=== PATIENT | male | born 1945 | race Caucasian/White ===

== ENCOUNTER → 2021-10-06 | Outpatient (CLI) | payer MEDICARE ==
[~2021-10-06] VITALS: Ht 68 cm; Wt 195.0 kg
[~2021-10-06] MED LIST: ACETAMINOPHEN 500 MG TAB (TYLENOL) PO PRN; ALPR.25T; ASP81CT; ASPI325T32; BAMLANIVIMAB 700 MG/ETESEVIMAB 1,400 MG IN NS IV ONE; COUMADIN; CPR500T PO; ENXP100I SC; EPINEPHrine INJECTION 1 MG/ML AMP IM PRN; LORA1TAB PO; MEMA10TA PO; MEMANTINE PO; METAPROLOL; METO-272 PO; MTP25TSR; MTP25TSR PO; MTP50T PO; NAMENDA XR 21MG PO; ONDANSETRON 4 MG/2 ML (SDV) Z0FRAN IV PRN; OXYC1TAB87 PO; PRAV40TA PO; SENN1TAB76 PO; SIMV20TA3; SIMVASTATIN; TOPROL; WARF4TAB; WRF2T PO; XANAX PRN; diphenhydrAMINE 50 MG/ML INJ (BENADRYL) IV PRN
[2021-10-06 10:51] VITALS: BP 143/72
[2021-10-06 10:55] VITALS: BP 143/72
[2021-10-06 12:33] VITALS: BP 143/72
== END ==
LOC: INFUSION 10:37
PROVIDERS: ATTEND Family Medicine
DX: U07.1 COVID-19 (principal)

== ENCOUNTER 2021-10-12 10:05 | Inpatient (IN) | payer MEDICARE ==
[~2021-10-12] VITALS: Ht 183 cm; Wt 89.8 kg
[~2021-10-12 10:05] MED LIST changes: -ACETAMINOPHEN 500 MG TAB (TYLENOL) PO PRN; -BAMLANIVIMAB 700 MG/ETESEVIMAB 1,400 MG IN NS IV ONE; -EPINEPHrine INJECTION 1 MG/ML AMP IM PRN; -ONDANSETRON 4 MG/2 ML (SDV) Z0FRAN IV PRN; -diphenhydrAMINE 50 MG/ML INJ (BENADRYL) IV PRN
--- OUTSIDE RECORDS SUMMARY | 2021-10-12 10:14 | XMS REPORT | CCD ---
Author Author Ronnie Lopez D.O. 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 Name Role Phone Roxie Lopez D.O., PP Unavailable CCM Unavailable Summary Purpose Interface Exchange Insurance Providers Payer name Policy type / Coverage type Covered green party ID Effective Begin Date Effective End Date [employer] Medicare [id number] Unknown Family History Family History data not found Social History Social History Element Codes Description Effective Dates Marital status Unknown 12/06/[address]: 0676118 Former smoker 2000 12/06/2011 Allergies, Adverse Reactions, Alerts Substance Reaction Codes Entered Date Inactivated Date Status * NO KNOWN FOOD ALLERGIES Unknown 10/30/2010 No Inactiv e Date Active PENICILLINS Unknown 10/30/2010 No Inactive Date Active * NO KNOWN ENVIRONMENTAL ALLERGIES Unknown 10/30/2010 N o Inactive Date Active Problems Condition Codes Effective Dates Condition Status Alzheimer's dementia ICD-10: G30.9 ICD-9: 331.0 11/27/2017 Active COVID-19 ICD-10: U07.1 ICD-9: 079.89 10/05/2021 Active Dementia in other diseases classified elsewhere withou t behavioral disturbance ICD-10: F02.80 10/05/2021 Active Cough ICD-10: R05.9 ICD-9: 786.2 10/04/2021 Active Exposure to COVID-19 virus ICD-10: Z20.822 ICD-9: V01.79 10/04/2021 Active FLU VACCINE ICD-10: Z23 ICD-9: V04.81 10/02/2016 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 01 ICD-9: V58.61 06/27/2020 Active Parkinson disease ICD-10: G20 ICD-9: 332.0 04/26/2021 Active Dementia ICD-10: F03.90 ICD-9: 294.20 04/26/2021 Active Alzheimer's disease with late onset ICD-10: G30.1 ICD-9: 331.0 01/07/2019 Active Encounter for general adult medical examination withou t abnormal findings ICD- 10: Z00.00 ICD-9: V70.9 10/12/2020 Active Mixed hyperlipidemia ICD-10: E78.2 ICD-9: 272.4 08/23/2014 Active Dementia in other diseases classified elsewhere with b ehavioral disturbance ICD- 10: F02.81 07/13/2020 Active Encounter for therapeutic drug level monitoring ICD-10 : Z51.81 ICD-9: V58.61 11/14/2017 Active Encounter for screening for malignant neoplasm of pros aquino ICD-10: Z12.5 ICD-9: V76.44 08/23/2014 Active Essential (primary) hypertension ICD-10: I10 ICD-9: 401.9 08/23/2014 Active Abnormal weight loss ICD-10: R63.4 ICD-9: 783.21 04/22/2019 Active Encounter for general adult medical examination withou t abnormal findings ICD- 10: Z00.00 ICD-9: V70.0 09/02/2019 Active Hypotension ICD-10: I95.9 ICD-9: 458.9 09/02/2019 Active Generalized anxiety disorder ICD-10: F41.1 ICD-9: 300.00 11/27/2017 Active Unspecified dementia with behavioral disturbance ICD-1 0: F03.91 ICD-9: 294.21 02/09/2019 Active Melena ICD-10: K92.1 ICD-9: 578.1 04/22/2019 Active Spontaneous ecchymoses ICD-10: R23.3 ICD-9: 782.7 05/27/2019 Active Psychophysiologic insomnia ICD-10: F51.04 ICD-9: 780.52 01/07/2019 Active Slow transit constipation ICD-10: K59.01 ICD-9: 564.01 02/09/2019 Active Constipation, unspecified ICD-10: K59.00 ICD-9: 564.00 01/07/2019 Active Nocturia ICD-10: R35.1 ICD-9: 788.43 01/07/2019 Active Atherosclerotic heart disease of [place] coronary arter y without angina pectoris ICD-10: I25.10 ICD-9: 414.00 11/14/2017 Active PNEUMOCOCCAL VACCINE ICD-10: Z23 ICD-9: V03.82 08/14/2017 Active Mild cognitive impairment, so stated ICD-10: G31.84 ICD-9: 780.93 09/01/2014 Active - I - ANXIETY STATE NOS ICD-9: 300.00 09/01/2014 Active MEMORY LOSS ICD-9: 780.93 09/01/2014 Active CAD ICD-9: 414.00 08/23/2014 Active HYPERLIPIDEMIA NEC/NOS ICD-9: 272.4 08/23/2014 Active HYPERTENSION ICD-9: 401.9 08/23/2014 Active Screening PSA (prostate specific antigen) ICD-9: V76.44 2013 Active Testicular pain ICD-9: 608.9 07/02/2013 Active ROUTINE MEDICAL EXAM ICD-9: V70.0 12/06/2011 Active Seborrheic dermatitis ICD-9: 690.10 12/06/2011 Active Anxiety Unknown 10/30/2010 Active Hyperlipidemia Unknown 10/30/2010 Active Hypertension Unknown 10/30/2010 Active Medications Medication Codes Instructions Start Date Stop Date Status Fill Instructions Dexamethasone Intensol 1 mg/mL Drops (concentrate) RxNorm: 3 15374 Take 5 Drop(s) Oral QD 10/05/2021 10/09/2021 Active Zithromax 200 mg/5 mL oral suspension RxNorm: 964548 Ta ke 12.5 Milliliter(s) Oral QD 10/05/2021 10/09/2021 Active albuterol sulfate HFA 90 mcg/actuation aerosol inhaler RxNor m: 0189160 Inhale 2 Puff(s) Inhalation Q4H as needed 10/05/2021 10/05/2021 Inactive albuterol sulfate HFA 90 mcg/actuation aerosol inhaler RxNor m: 2045516 Inhale 2 Puff(s) Inhalation Q4H as needed 10/05/2021 10/05/2021 Inactive memantine 10 mg tablet RxNorm: 687402 TAKE 1 TABLET TWI CE DAILY (REPLACES NAMENDA XR) 10/04/2021 04/01/2022 Active escitalopram 20 mg tablet RxNorm: 741191 TAKE 1 TABLET AT BEDTIME 1 12/05/2020 04/01/2022 Active warfarin 2 mg tablet RxNorm: 394139 TAKE 1 AND 1/2 TABL ETS ON SATURDAY, SATURDAY, SATURDAY, SATURDAY AND TAKE 2 TABLETS ON SATURDAY, SATURDAY AND Saturday08/23/2021 11/20/2021 Active tamsulosin 0.4 mg capsule RxNorm: 504075 TAKE 1 CAPSULE EVERY DAY 0 06/26/2021 09/23/2021 Inactive carbidopa 25 mg-levodopa 100 mg tablet RxNorm: 078776 T PHAM 1 TABLET TWICE DAILY FOR TREMORS 06/26/2021 07/04/2021 Inactive memantine 10 mg tablet RxNorm: 186813 TAKE 1 TABLET TWI CE DAILY (REPLACES NAMENDA XR) 06/26/2021 06/26/2021 Inactive escitalopram 20 mg tablet RxNorm: 468080 TAKE 1 TABLET AT BEDTIME 0 06/26/2021 06/26/2021 Inactive warfarin 2 mg tablet RxNorm: 906297 TAKE 1 AND 1/2 TABL ETS ON SATURDAY, SATURDAY, SATURDAY, SATURDAY AND TAKE 2 TABLETS ON SATURDAY, SATURDAY AND Saturday06/26/2021 06/26/2021 Inactive Sinemet 25 mg-100 mg tablet RxNorm: 249010 Take 1 Table t(s) Oral two times a day for tremors 04/26/2021 04/26/2021 Inactive memantine 10 mg tablet RxNorm: 805979 TAKE 1 TABLET TWI CE DAILY (REPLACES NAMENDA XR) 04/12/2021 04/12/2021 Inactive warfarin 2 mg tablet RxNorm: 962578 2 Tablet(s) Oral Mo through Saturday and 1.5 tablets on Saturday/Saturday01/19/2021 No Stop Date Active tamsulosin 0.4 mg capsule RxNorm: 566920 TAKE 1 CAPSULE EVERY DAY 0 12/19/2020 12/19/2020 Inactive warfarin 2 mg tablet RxNorm: 041291 TAKE 1 AND 1/2 TABL ETS ON SATURDAY, SATURDAY, SATURDAY, SATURDAY AND TAKE 2 TABLETS ON SATURDAY, SATURDAY AND Saturday12/12/2020 01/18/2021 Inactive escitalopram 20 mg tablet RxNorm: 319847 TAKE 1 TABLET AT BEDTIME 0 11/28/2020 11/28/2020 Inactive Namenda 10 mg tablet RxNorm: 220691 TAKE 1 TABLET TWICE DAILY (REPLACES NAMENDA XR) 10/17/2020 10/17/2020 Inactive melatonin 10 mg capsule RxNorm: 331956 1 Capsule(s) Oral QD 020 No Stop Date Active tamsulosin 0.4 mg capsule RxNorm: 612607 TAKE 1 CAPSULE EVERY DAY 1 12/18/2020 Inactive warfarin 2 mg tablet RxNorm: 756278 TAKE 1 AND 1/2 TABL ETS ON SATURDAY, SATURDAY, SATURDAY, SATURDAY AND TAKE 2 TABLETS ON SATURDAY, SATURDAY AND Saturday07/12/2020 12/11/2020 Inactive warfarin 2 mg tablet RxNorm: 808712 TAKE 1 AND 1/2 TABL ETS ON SATURDAY, SATURDAY, SATURDAY, SATURDAY AND TAKE 2 TABLETS ON SATURDAY, SATURDAY AND Saturday06/27/2020 07/11/2020 Inactive Namenda 10 mg tablet RxNorm: 455066 TAKE 1 TABLET TWICE DAILY (REPLACES NAMENDA XR) 04/18/2020 10/16/2020 Inactive tamsulosin 0.4 mg capsule RxNorm: 665431 1 Capsule(s) Oral QD 02/1108/10/2020 Inactive Depakote ER 250 mg tablet,extended release RxNorm: 1998623 1 Tab let(s) Oral QPM 01/21/2020 04/20/2020 Inactive warfarin 2 mg tablet RxNorm: 427575 TAKE 1 AND 1/2 TABL ETS ON SATURDAY, SATURDAY, SATURDAY AND SATURDAY AND TAKE 2 TABLETS ON SATURDAY, SATURDAY AND Saturday12/14/2019 06/26/2020 Inactive escitalopram 20 mg tablet RxNorm: 918621 TAKE 1 TABLET AT BEDTIME 0 11/16/2019 11/27/2020 Inactive Namenda 10 mg tablet RxNorm: 922089 TAKE 1 TABLET TWICE DAILY (REPLACES NAMENDA XR) 10/08/2019 04/17/2020 Inactive tamsulosin 0.4 mg capsule RxNorm: 186374 1 Capsule(s) Oral QD 09/0202/11/2020 Inactive warfarin 2 mg tablet RxNorm: 553826 1.5 Tablet(s) PO on , , Sat, and Sun and 2 tablets on Sat, Sat, Sat07/13/2019 07/12/2019 Inactive Depakote ER 250 mg tablet,extended release RxNorm: 0327197 1 Tab let(s) PO BID 06/08/2019 09/05/2019 Inactive pravastatin 80 mg tablet RxNorm: 491102 TAKE 1 TABLET EVERY DAY 11/201809/01/2019 Inactive warfarin 2 mg tablet RxNorm: 398241 TAKE 1 AND 1/2 TABS ON SATURDAY,SATURDAY AND SATURDAY AND TAKE 2 TABS ON , , SAT AND SUN (NEED MD APPOINTMENT) 03/09/2019 07/13/2019 Inactive Namenda 10 mg tablet RxNorm: 720748 TAKE 1 TABLET TWICE DAILY (REPLACES NAMENDA XR) 02/09/2019 08/07/2019 Inactive doxepin 25 mg capsule RxNorm: 3786728 1 Capsule(s) PO QH S for sleep replaces 10mg dose 02/09/2019 04/21/2019 Inactive escitalopram 20 mg tablet RxNorm: 444686 1 Tablet(s) PO QHS 019 08/07/2019 Inactive tamsulosin 0.4 mg capsule RxNorm: 044421 1 Capsule(s) P O QPM for urinary frequency 01/07/2019 02/12/2020 Inactive divalproex 250 mg tablet,delayed release RxNorm: 8119136 1 Table t(s) PO QHS 01/07/2019 01/07/2019 Inactive doxepin 10 mg capsule RxNorm: 9972930 1-2 Capsule(s) PO QHS as n eeded for sleep 01/07/2019 02/08/2019 Inactive warfarin 2 mg tablet RxNorm: 649897 1 1/2 Tablet(s) PO MWF and 2 tablets on Sat and Sun 12/29/2018 03/08/2019 Inactive metoprolol tartrate 50 mg tablet RxNorm: 508579 TAKE 1 TABLET T WICE DAILY 12/01/2018 06/30/2019 Inactive Namenda 10 mg tablet RxNorm: 793290 TAKE 1 TABLET TWICE DAILY (REPLACES NAMENDA XR) 09/22/2018 02/08/2019 Inactive warfarin 2 mg tablet RxNorm: 667163 1 1/2 Tablet(s) PO MWF and 2 tablets on T Th Sat and Sun 09/02/2018 09/01/2018 Inactive escitalopram 10 mg tablet RxNorm: 570689 1 Tablet(s) PO QHS 018 02/08/2019 Inactive pravastatin 80 mg tablet RxNorm: 593423 1 Tablet(s) PO QD 01/28/2018 10/24/2018 Inactive Namenda 10 mg tablet RxNorm: 122254 1 Tablet(s) PO BID 11/27/2017 Inactive escitalopram 10 mg tablet RxNorm: 891141 1 Tablet(s) PO QHS 018 06/09/2018 Inactive Namenda XR 28 mg capsule sprinkle,extended release RxNorm: 9 57209 TAKE ONE CAPSULE BY MOUTH ONCE DAILY 10/10/2017 11/26/2017 Inactive metoprolol tartrate 50 mg tablet RxNorm: 615281 Tablet( s) TAKE 1 TABLET TWICE DAILY 10/03/2017 09/27/2018 Inactive warfarin 2 mg tablet RxNorm: 563368 Tablet(s) TAKE 2 TA BLETS SATURDAY THROUGH SATURDAY AND 1 TABLET SATURDAY AND Saturday05/09/2017 09/02/2018 Inactive divalproex 250 mg tablet,delayed release RxNorm: 2816672 TAKE 1 TABLET TWICE DAILY 02/19/2017 01/06/2019 Inactive Namenda XR 28 mg capsule sprinkle,extended release RxNorm: 9 08387 TAKE 1 CAPSULE EVERY DAY 02/11/2017 10/09/2017 Inactive pravastatin 80 mg tablet RxNorm: 715690 1 Tablet(s) PO QD 01/21/2017 01/28/2018 Inactive Namenda XR 28 mg capsule sprinkle,extended release RxNorm: 9 58967 TAKE ONE CAPSULE BY MOUTH ONCE DAILY 09/24/2016 02/10/2017 Inactive metoprolol tartrate 50 mg tablet RxNorm: 580302 TAKE 1 TABLET T WICE DAILY 09/10/2016 10/03/2017 Inactive warfarin 2 mg tablet RxNorm: 357375 TAKE 2 TABLETS THROUGH SATURDAY AND 1 TABLET SATURDAY AND Saturday2016 05/09/2017 Inactive divalproex 250 mg tablet,delayed release RxNorm: 0527281 1 Table t(s) PO QHS 12/19/2015 12/12/2016 Inactive pravastatin 80 mg tablet RxNorm: 018571 1 Tablet(s) PO QD 12/19/2015 01/21/2017 Inactive Namenda XR 28 mg capsule sprinkle,extended release RxNorm: 9 48098 1 Capsule(s) PO QD 11/11/2015 09/23/2016 Inactive divalproex 250 mg tablet,delayed release RxNorm: 3409274 1 Table t(s) PO QHS 10/10/2015 12/19/2015 Inactive Namenda XR 28 mg capsule sprinkle,extended release RxNorm: 9 01608 1 Capsule(s) PO QD TAKE 1 CAPSULE EVERY DAY 11/09/2014 11/11/2015 Inactive Namenda XR 28 mg capsule sprinkle,ER 24hr RxNorm: 927810 1 PO QD TAKE ONE CAPSULE BY MOUTH ONCE DAILY 10/07/2014 11/09/2014 Inactive Namenda XR 28 mg capsule sprinkle,ER 24hr RxNorm: 914426 1 Caps ule(s) PO QD 11/10/2013 10/07/2014 Inactive metoprolol tartrate 50 mg tablet RxNorm: 551072 1 Tablet(s) PO BID 05/14/2013 05/08/2014 Inactive 1BID (REPLACES TOPROL) - [place]IMBER[place] E ONE TABLET BY MOUTH TWICE DAILY (REPLACES TOPROL) Ativan 1 mg tablet RxNorm: 671952 1 Tablet(s) PO BID 05/01/201310/09 Inactive as needed for anxiety pravastatin 40 mg tablet RxNorm: 919161 1 Tablet(s) PO QD due for labs in late summer03/26/2013 11/10/2014 Inactive warfarin 2 mg tablet RxNorm: 380573 1 Tablet(s) PO Take 2 tablets by mouth Saturday through Saturday and 1 tablet on Saturday and Saturday10/07/2012 Inactive pravastatin 40 mg tablet RxNorm: 098903 1 Tablet(s) PO QD 08/13/2012 03/26/2013 Inactive metoprolol tartrate 50 mg tablet RxNorm: 107072 1 Tablet(s) PO BID 08/13/2012 05/14/2013 Inactive 1BID (REPLACES TOPROL) - [place] E ONE TABLET BY MOUTH TWICE DAILY (REPLACES TOPROL) warfarin 2 mg tablet RxNorm: 275295 1 Tablet(s) PO QD 08/13/201202/2012 Inactive warfarin 2 mg tablet RxNorm: 678290 Tablet(s) PO 11/07/2011 08/13/2012 Inactive 2QD - TAKE TWO TABLETS BY MOUTH EVERY DAY SATURDAY THROUGH SATURDAY AND 1 TABLET ON SATURDAY AND SATURDAY pravastatin 40 mg tablet RxNorm: 530570 1 Tablet(s) PO QD 10/15/2011 08/13/2012 Inactive Ativan 1 mg tablet RxNorm: 526136 1 Tablet(s) PO BID 10/01/201109/30 Active as needed for anxiety metoprolol tartrate 50 mg tablet RxNorm: 034855 1 Tablet(s) PO BID 08/27/2011 08/13/2012 Inactive 1BID (REPLACES TOPROL) - [place] E ONE TABLET BY MOUTH TWICE DAILY (REPLACES TOPROL) pravastatin 40 mg Tab RxNorm: 542776 1 Tablet(s) PO QD 07/10/201109/2011 Inactive Ativan 1 mg Tab RxNorm: 022961 1 Tablet(s) PO BID 07/02/2011 1 Active as needed for anxiety metoprolol tartrate 50 mg Tab RxNorm: 670043 1 Tablet(s ) PO BID 1BID (REPLACES TOPROL) - TAKE ONE TABLET BY MOUTH TWICE DAILY (REPLACES TOPROL) 03/12/2011 08/26/2011 Inactive Ativan 1 mg Tab RxNorm: 977772 1 Tablet(s) PO BID as needed for anxiety 02/26/2011 02/25/2011 Active warfarin 2 mg Tab RxNorm: 115748 Tablet(s) PO 2QD - T PHAM TWO TABLETS BY MOUTH EVERY DAY SATURDAY THROUGH SATURDAY AND 1 TABLET ON SATURDAY AND Saturday12/18/2010 11/07/2011 Inactive Ativan 1 mg Tab RxNorm: 322292 1 Tablet(s) PO BID PRN for anxiety 0 11/06/2010 01/06/2019 Inactive metoprolol tartrate 50 mg Tab RxNorm: 370805 1 Tablet(s ) PO BID 1BID (REPLACES TOPROL) - TAKE ONE TABLET BY MOUTH TWICE DAILY (REPLACES TOPROL) 09/11/2010 03/12/2011 Inactive Ativan 1 mg Tab RxNorm: 781935 1 Tablet(s) PO BID PRN for anxiety 1 11/06/2010 Inactive warfarin 2 mg Tab RxNorm: 438008 Tablet(s) PO 2QD - T PHAM TWO TABLETS BY MOUTH EVERY DAY SATURDAY THROUGH SATURDAY AND 1 TABLET ON SATURDAY AND Saturday07/24/2010 10/29/2010 Inactive metoprolol tartrate 50 mg Tab RxNorm: 744625 1 Tablet(s) PO QD 01/201009/11/2010 Inactive pravastatin 40 mg Tab RxNorm: 646464 1 Tablet(s) PO QD 06/06/201004/2011 Inactive Warfarin 2 mg Tab RxNorm: 916468 2 Tablet(s) PO QD 2 tablets by mouth Saturday through Saturday, and one tablet by mouth on Saturday and Saturday. 06/06/2010 07/23/2010 Inactive Ativan 1 mg Tab RxNorm: 876954 1 Tablet(s) PO QHS PRN for anxiety 0 06/06/2010 08/27/2010 Inactive Pravastatin 40 mg Tab RxNorm: 736611 1 Tablet(s) PO QD 04/14/201012/2009 Inactive Ativan 1 mg Tab RxNorm: 762570 1 Tablet(s) PO BID PRN for anxiety 0 02/23/2010 06/02/2010 Inactive Probiotic oral RxNorm: 6205 oral 04/07/2020 Active [place] 3 Natural Fish Oil Conc capsule RxNorm: 1 Capsule(s) PO QD 0 11/27/2017 Active turmeric-turmeric root extract oral RxNorm: 3354560 oral 11/27/19 18 Active magnesium oral RxNorm: 6574 oral 04/07/2020 Active Vitamin D3 5,000 unit tablet RxNorm: 147874 1 Tablet(s) PO QD 019 Active warfarin 2 mg tablet RxNorm: 780413 1 Tablet(s) PO QD 08/13/201207/2012 Inactive Ativan 1 mg Tab RxNorm: 573225 1 Tablet(s) PO BID as needed for anxiety 02/26/2011 02/25/2011 Inactive warfarin 2 mg Tab RxNorm: 681384 2 Tablet(s) PO QD saturday06/06/2012 06/05/2012 Inactive Tricor 145 mg Tab RxNorm: 831785 1 Tablet(s) PO QD 12/06/2011 012 Inactive warfarin 4 mg tablet RxNorm: 621095 Tablet(s) PO 11/27/2017 11/26/2017 Inactive warfarin 2 mg Tab RxNorm: 883764 1 Tablet(s) PO QD on saturday and saturday06/06/2012 06/05/2012 Inactive warfarin 2 mg tablet RxNorm: 656445 1.5 Tablet(s) PO on , , Sat, and Sun and 2 tablets on Sat, Sat, Sat07/13/2019 07/12/2019 Inactive pravastatin 80 mg tablet RxNorm: 685248 1 Tablet(s) PO QD 12/19/2015 12/19/2015 Inactive metoprolol tartrate 50 mg tablet RxNorm: 933736 1 Tablet(s) PO QD 1 09/01/2019 Inactive Warfarin 2 mg Tab RxNorm: 018062 Tablet(s) PO 2 table ts by mouth Saturday through Saturday, and one tablet by mouth on Saturday and Saturday. 06/06/201012/2009 Inactive Namenda 10 mg Tab RxNorm: 017765 2 Tablet(s) PO QD 07/02/2013 013 Inactive warfarin 2 mg tablet RxNorm: 283047 1 1/2 Tablet(s) PO MWF and 2 tablets on Sat and Sun 09/02/2018 09/01/2018 Inactive Ativan 1 mg Tab RxNorm: 901938 1 Tablet(s) PO BID PRN for anxiety 0 04/20/2010 04/19/2010 Inactive warfarin 2 mg Tab RxNorm: 372497 Tablet(s) PO take 2 tablets by mouth Sat-Sat and 1 tablet on Saturday and Saturday06/06/2012 06/05/2012 Inactive Depakote ER 250 mg tablet,extended release RxNorm: 6273599 1 Tab let(s) PO BID 11/27/2017 11/26/2017 Inactive warfarin 1 mg Tab RxNorm: 010516 1 Tablet(s) PO on Saturday and Saturday10/30/2010 10/29/2010 Inactive Medication Administered No Medication Administered data Immunizations Vaccine Codes Date Status Influenza CVX: 135 08/18/2021 Complete Covid-19 CVX: 207 01/25/2021 Covid-19 CVX: 207 12/22/2020 Influenza CVX: 135 08/20/2018 Complete Pneumococcal CVX: 33 08/20/2018 Complete Influenza CVX: 135 08/14/2017 Complete Pneumococcal CVX: 133 08/14/2017 Complete Influenza CVX: 135 10/03/2016 Complete Results Observation Observation Code Item Item Code Result Date S ervice Location PT [id number] PT 24.4 Seconds 07/05/2021 Unknow n PT [id number] INR 2.2 07/05/2021 Unknown PT [id number] PT 25.2 Seconds 04/28/2021 Unknow n PT [id number] INR 2.3 04/28/2021 Unknown THYROID STIMULATING HORMONE 09033 TSH 2.271 uIU/mL 04/28/2021 Unknown COMPREHENSIVE METABOLIC 27190 AST 18 U/L 2020 Unknown COMPREHENSIVE METABOLIC 69151 ALT 9 U/L 2020 Unknown COMPREHENSIVE METABOLIC 60213 BUN 17 mg/dL 2020 Unknown COMPREHENSIVE METABOLIC 48540 ALBUMIN 3.8 g/dL 2020 Unknown COMPREHENSIVE METABOLIC 72586 CHLORIDE 108 mmol/L 04/28 Unknown COMPREHENSIVE METABOLIC 12260 Bili Total 0.7 mg/dL 04/28 Unknown COMPREHENSIVE METABOLIC 73735 ALK PHOS 76 U/L 2020 Unknown COMPREHENSIVE METABOLIC 05416 SODIUM 140 mmol/L 04/28 Unknown COMPREHENSIVE METABOLIC 48428 CREATININE 0.83 mg/dL 04/05 Unknown COMPREHENSIVE METABOLIC 90543 CALCIUM 9.5 mg/dL 2020 Unknown COMPREHENSIVE METABOLIC 06760 POTASSIUM 4.1 mmol/L 04/28 Unknown COMPREHENSIVE METABOLIC 65301 Total Protein 6.9 g/dL Unknown COMPREHENSIVE METABOLIC 24911 Glucose 106 mg/dL 2020 Unknown COMPREHENSIVE METABOLIC 08412 Bicarbonate 26 mmol/L 04/05 Unknown COMPREHENSIVE METABOLIC 62617 AGAP 6 mmol/L 2020 Unknown GFR CALC 3435126 GFR Non Afr Amr >60 mL/min 04/28/2021 Un known GFR CALC 1234992 GFR Afr Amr >60 mL/min 04/28/2021 Unknow n COMPLETE BLOOD COUNT [id number] WBC 4.6 10e9/L 04/28/20 21 Unknown COMPLETE BLOOD COUNT [id number] RBC 4.39 10e12/L 2020 Unknown COMPLETE BLOOD COUNT [id number] HEMOGLOBIN 14.2 g/dL 04/28/20 21 Unknown COMPLETE BLOOD COUNT [id number] HEMATOCRIT 41.1 % 04/28/20 21 Unknown COMPLETE BLOOD COUNT [id number] MCV 93.6 fL 1 Unknown COMPLETE BLOOD COUNT [id number] MCH 32.3 pg 1 Unknown COMPLETE BLOOD COUNT [id number] MCHC 34.5 g/dL 1 Unknown COMPLETE BLOOD COUNT [id number] PLATELET COUNT 198 10e9/L Unknown COMPLETE BLOOD COUNT [id number] Mean Plt Volume 9.3 fL Unknown COMPLETE BLOOD COUNT [id number] Neut Auto 54.8 % 1 Unknown COMPLETE BLOOD COUNT [id number] Lymph Auto 33.7 % 04/28/20 21 Unknown COMPLETE BLOOD COUNT [id number] [place] Auto 9.6 % 1 Unknown COMPLETE BLOOD COUNT [id number] RDW 12.2 % 1 Unknown COMPLETE BLOOD COUNT [id number] Eos Auto 1.7 % 1 Unknown COMPLETE BLOOD COUNT [id number] Baso Auto 0.2 % 1 Unknown COMPLETE BLOOD COUNT [id number] Neutrophil Abs 2.52 10e9/L Unknown COMPLETE BLOOD COUNT [id number] Lymphocyte Abs 1.55 10e9/L Unknown COMPLETE BLOOD COUNT [id number] Monocyte Abs 0.44 10e9/L 04/05 Unknown COMPLETE BLOOD COUNT [id number] Eosinophil Abs 0.08 10e9/L Unknown COMPLETE BLOOD COUNT [id number] RDW-SD 40.9 fL 1 Unknown COMPLETE BLOOD COUNT [id number] Basophil Abs 0.01 10e9/L 04/05 Unknown FREE T4 32362 T4 Free 0.81 ng/dL 04/28/2021 Unknown PT [id number] PT 19.8 Seconds 01/18/2021 Unknow n PT [id number] INR 1.6 01/18/2021 Unknown PT [id number] PT 18.7 Seconds 10/14/2020 Unknow n PT [id number] INR 1.5 10/14/2020 Unknown COMPREHENSIVE METABOLIC 10257 AST 17 U/L 2019 Unknown COMPREHENSIVE METABOLIC 94615 ALT 10 U/L 2019 Unknown COMPREHENSIVE METABOLIC 71718 BUN 19 mg/dL 2019 Unknown COMPREHENSIVE METABOLIC 00003 ALBUMIN 4.1 g/dL 2019 Unknown COMPREHENSIVE METABOLIC 20177 CHLORIDE 103 mmol/L 10/14 Unknown COMPREHENSIVE METABOLIC 77565 Bili Total 0.6 mg/dL 10/14 Unknown COMPREHENSIVE METABOLIC 15169 ALK PHOS 65 U/L 2019 Unknown COMPREHENSIVE METABOLIC 92410 SODIUM 141 mmol/L 10/14 Unknown COMPREHENSIVE METABOLIC 37694 CREATININE 0.77 mg/dL 10/04 Unknown COMPREHENSIVE METABOLIC 68480 CALCIUM 9.2 mg/dL 2019 Unknown COMPREHENSIVE METABOLIC 85897 POTASSIUM 4.2 mmol/L 10/14 Unknown COMPREHENSIVE METABOLIC 07520 Total Protein 6.7 g/dL Unknown COMPREHENSIVE METABOLIC 93498 Glucose 91 mg/dL 2019 Unknown COMPREHENSIVE METABOLIC 16765 Bicarbonate 28 mmol/L 10/04 Unknown COMPREHENSIVE METABOLIC 78626 AGAP 10 mmol/L 2019 Unknown FREE T4 47732 T4 Free 0.81 ng/dL 10/14/2020 Unknown HEMOGLOBIN A1C (GLYCOSYLATED) 1734343 Hgb A1c 17426-2 4.4 % 10/14/2020 Unknown HEMOGLOBIN A1C (GLYCOSYLATED) 5963435 Calc Mean Gluc 80 mg /dL 10/14/2020 Unknown COMPLETE BLOOD COUNT [id number] WBC 5.4 10e9/L 10/14/20 20 Unknown COMPLETE BLOOD COUNT [id number] RBC 4.40 10e12/L 2019 Unknown COMPLETE BLOOD COUNT [id number] HEMOGLOBIN 14.4 g/dL 10/14/20 20 Unknown COMPLETE BLOOD COUNT [id number] HEMATOCRIT 42.4 % 10/14/20 20 Unknown COMPLETE BLOOD COUNT [id number] MCV 96.4 fL 0 Unknown COMPLETE BLOOD COUNT [id number] MCH 32.7 pg 0 Unknown COMPLETE BLOOD COUNT 9457142 MCHC 34.0 g/dL 0 Unknown COMPLETE BLOOD COUNT [id number] PLATELET COUNT 216 10e9/L 09/2020 Unknown COMPLETE BLOOD COUNT [id number] Mean Plt Volume 9.5 fL 09/2020 Unknown COMPLETE BLOOD COUNT [id number] Neut Auto 57.6 % 0 Unknown COMPLETE BLOOD COUNT [id number] Lymph Auto 31.5 % 10/14/20 20 Unknown COMPLETE BLOOD COUNT [id number] [place] Auto 9.0 % 0 Unknown COMPLETE BLOOD COUNT [id number] RDW 12.4 % 0 Unknown COMPLETE BLOOD COUNT [id number] Eos Auto 1.7 % 0 Unknown COMPLETE BLOOD COUNT [id number] Baso Auto 0.2 % 0 Unknown COMPLETE BLOOD COUNT [id number] Neutrophil Abs 3.11 10e9/L Unknown COMPLETE BLOOD COUNT [id number] Lymphocyte Abs 1.70 10e9/L Unknown COMPLETE BLOOD COUNT [id number] Monocyte Abs 0.49 10e9/L 10/04 Unknown COMPLETE BLOOD COUNT [id number] Eosinophil Abs 0.09 10e9/L Unknown COMPLETE BLOOD COUNT [id number] RDW-SD 42.4 fL 0 Unknown COMPLETE BLOOD COUNT [id number] Basophil Abs 0.01 10e9/L 10/04 Unknown THYROID STIMULATING HORMONE 12670 TSH 2.071 uIU/mL 10/14/2020 Unknown LIPID GROUP 19606 Cholesterol 217 mg/dL 10/14/2020 Unkno wn LIPID GROUP 76094 Triglyceride 108 mg/dL 10/14/2020 Unkn own LIPID GROUP 60403 HDL CHOLESTEROL 46 mg/dL 10/14/2020 U nknown LIPID GROUP 35806 Chol/HDL Ratio 4.72 ratio 10/14/2020 U nknown LIPID GROUP 55452 NON-HDL Chol 171 mg/dL 10/14/2020 Unkn own LIPID GROUP 46277 LDL Cholesterol 149 mg/dL 10/14/2020 U nknown GFR CALC [id number] GFR Non Afr Amr >60 mL/min 10/14/2020 Un known GFR CALC [id number] GFR Afr Amr >60 mL/min 10/14/2020 Unknow n COMPLETE BLOOD COUNT [id number] WBC 7.6 10e9/L 04/06/20 20 Unknown COMPLETE BLOOD COUNT [id number] RBC 3.90 10e12/L 2019 Unknown COMPLETE BLOOD COUNT [id number] HEMOGLOBIN 12.0 g/dL 04/06/20 20 Unknown COMPLETE BLOOD COUNT [id number] HEMATOCRIT 36.9 % 04/06/20 20 Unknown COMPLETE BLOOD COUNT [id number] MCV 94.6 fL 0 Unknown COMPLETE BLOOD COUNT [id number] MCH 30.8 pg 0 Unknown COMPLETE BLOOD COUNT [id number] MCHC 32.5 g/dL 0 Unknown COMPLETE BLOOD COUNT [id number] PLATELET COUNT 257 10e9/L 01/2020 Unknown COMPLETE BLOOD COUNT [id number] Mean Plt Volume 8.6 fL 01/2020 Unknown COMPLETE BLOOD COUNT [id number] Neut Auto 68.7 % 0 Unknown COMPLETE BLOOD COUNT [id number] Lymph Auto 22.0 % 04/06/20 20 Unknown COMPLETE BLOOD COUNT [id number] [place] Auto 8.3 % 0 Unknown COMPLETE BLOOD COUNT [id number] RDW 12.7 % 0 Unknown COMPLETE BLOOD COUNT [id number] Eos Auto 0.7 % 0 Unknown COMPLETE BLOOD COUNT [id number] Baso Auto 0.3 % 0 Unknown COMPLETE BLOOD COUNT [id number] Neutrophil Abs 5.22 10e9/L Unknown COMPLETE BLOOD COUNT [id number] Lymphocyte Abs 1.67 10e9/L Unknown COMPLETE BLOOD COUNT [id number] Monocyte Abs 0.63 10e9/L 01/2020 Unknown COMPLETE BLOOD COUNT [id number] Eosinophil Abs 0.05 10e9/L Unknown COMPLETE BLOOD COUNT [id number] RDW-SD 42.6 fL 0 Unknown COMPLETE BLOOD COUNT [id number] Basophil Abs 0.02 10e9/L 01/2020 Unknown PT [id number] PT 19.3 Seconds 04/06/2020 Unknow n PT [id number] INR 1.6 04/06/2020 Unknown COMPREHENSIVE METABOLIC 37224 AST 12 U/L 2019 Unknown COMPREHENSIVE METABOLIC 29600 ALT 7 U/L 2019 Unknown COMPREHENSIVE METABOLIC 74901 BUN 19 mg/dL 2019 Unknown COMPREHENSIVE METABOLIC 50565 ALBUMIN 3.8 g/dL 2019 Unknown COMPREHENSIVE METABOLIC 47733 CHLORIDE 103 mmol/L 04/06 Unknown COMPREHENSIVE METABOLIC 94917 Bili Total 0.4 mg/dL 04/06 Unknown COMPREHENSIVE METABOLIC 89334 ALK PHOS 78 U/L 2019 Unknown COMPREHENSIVE METABOLIC 81693 SODIUM 141 mmol/L 04/06 Unknown COMPREHENSIVE METABOLIC 19801 CREATININE 0.90 mg/dL 01/2020 Unknown COMPREHENSIVE METABOLIC 62517 CALCIUM 9.0 mg/dL 2019 Unknown COMPREHENSIVE METABOLIC 34625 POTASSIUM 3.8 mmol/L 04/06 Unknown COMPREHENSIVE METABOLIC 16942 Total Protein 6.1 g/dL Unknown COMPREHENSIVE METABOLIC 29876 Glucose 125 mg/dL 2019 Unknown COMPREHENSIVE METABOLIC 30078 Bicarbonate 27 mmol/L 01/2020 Unknown COMPREHENSIVE METABOLIC 25255 AGAP 11 mmol/L 2019 Unknown GFR CALC 0839971 GFR Non Afr Amr >60 mL/min 04/06/2020 Un known GFR CALC 5722084 GFR Afr Amr >60 mL/min 04/06/2020 Unknow n PT [id number] PT 25.2 Seconds 09/02/2019 Unknow n PT [id number] INR 2.2 09/02/2019 Unknown PT [id number] PT 26.5 Seconds 04/22/2019 Unknow n PT 8891906 INR 2.3 04/22/2019 Unknown FERRITIN 12974 FERRITIN 240.3 ng/mL 04/22/2019 Unknown COMPLETE BLOOD COUNT [id number] WBC 7.7 10e9/L 04/22/20 19 Unknown COMPLETE BLOOD COUNT [id number] RBC 4.19 10e12/L 2018 Unknown COMPLETE BLOOD COUNT [id number] HEMOGLOBIN 13.5 g/dL 04/22/20 19 Unknown COMPLETE BLOOD COUNT [id number] HEMATOCRIT 39.6 % 04/22/20 19 Unknown COMPLETE BLOOD COUNT [id number] MCV 94.5 fL 9 Unknown COMPLETE BLOOD COUNT [id number] MCH 32.2 pg 9 Unknown COMPLETE BLOOD COUNT 8254176 MCHC 34.1 g/dL 9 Unknown COMPLETE BLOOD COUNT [id number] PLATELET COUNT 235 10e9/L Unknown COMPLETE BLOOD COUNT [id number] Mean Plt Volume 9.8 fL Unknown COMPLETE BLOOD COUNT [id number] Neut Auto 68.5 % 9 Unknown COMPLETE BLOOD COUNT [id number] Lymph Auto 22.4 % 04/22/20 19 Unknown COMPLETE BLOOD COUNT [id number] [place] Auto 8.3 % 9 Unknown COMPLETE BLOOD COUNT [id number] RDW 12.4 % 9 Unknown COMPLETE BLOOD COUNT [id number] Eos Auto 0.5 % 9 Unknown COMPLETE BLOOD COUNT [id number] Baso Auto 0.3 % 9 Unknown COMPLETE BLOOD COUNT [id number] Neutrophil Abs 5.27 10e9/L Unknown COMPLETE BLOOD COUNT [id number] Lymphocyte Abs 1.72 10e9/L Unknown COMPLETE BLOOD COUNT [id number] Monocyte Abs 0.64 10e9/L 04/04 Unknown COMPLETE BLOOD COUNT [id number] Eosinophil Abs 0.04 10e9/L Unknown COMPLETE BLOOD COUNT [id number] RDW-SD 41.6 fL 9 Unknown COMPLETE BLOOD COUNT [id number] Basophil Abs 0.02 10e9/L 04/04 Unknown IRON 46992 Iron 95 ug/dL 04/22/2019 Unknown GFR CALC 8473985 GFR Non Afr Amr >60 mL/min 01/05/2019 Un known GFR CALC 2572104 GFR Afr Amr >60 mL/min 01/05/2019 Unknow n COMPREHENSIVE METABOLIC 72322 AST 15 U/L 2018 Unknown COMPREHENSIVE METABOLIC 86914 ALT 11 U/L 2018 Unknown COMPREHENSIVE METABOLIC 68242 BUN 16 mg/dL 2018 Unknown COMPREHENSIVE METABOLIC 67348 ALBUMIN 3.9 g/dL 2018 Unknown COMPREHENSIVE METABOLIC 71262 CHLORIDE 106 mmol/L 01/05 Unknown COMPREHENSIVE METABOLIC 67579 Bili Total 0.7 mg/dL 01/05 Unknown COMPREHENSIVE METABOLIC 63207 ALK PHOS 50 U/L 2018 Unknown COMPREHENSIVE METABOLIC 53101 SODIUM 138 mmol/L 01/05 Unknown COMPREHENSIVE METABOLIC 16819 CREATININE 0.74 mg/dL 02/2019 Unknown COMPREHENSIVE METABOLIC 35727 CALCIUM 9.0 mg/dL 2018 Unknown COMPREHENSIVE METABOLIC 58398 POTASSIUM 4.3 mmol/L 01/05 Unknown COMPREHENSIVE METABOLIC 27350 Total Protein 6.4 g/dL Unknown COMPREHENSIVE METABOLIC 91282 Glucose 114 mg/dL 2018 Unknown COMPREHENSIVE METABOLIC 60143 Bicarbonate 26 mmol/L 02/2019 Unknown COMPREHENSIVE METABOLIC 65281 AGAP 6 mmol/L 2018 Unknown COMPLETE BLOOD COUNT [id number] WBC 5.5 10e9/L 01/06/20 19 Unknown COMPLETE BLOOD COUNT [id number] RBC 4.27 10e12/L 2018 Unknown COMPLETE BLOOD COUNT [id number] HEMOGLOBIN 14.0 g/dL 01/06/20 19 Unknown COMPLETE BLOOD COUNT [id number] HEMATOCRIT 40.6 % 01/06/20 19 Unknown COMPLETE BLOOD COUNT [id number] MCV 95.1 fL 9 Unknown COMPLETE BLOOD COUNT [id number] MCH 32.8 pg 9 Unknown COMPLETE BLOOD COUNT [id number] MCHC 34.5 g/dL 9 Unknown COMPLETE BLOOD COUNT [id number] PLATELET COUNT 211 10e9/L 02/2019 Unknown COMPLETE BLOOD COUNT [id number] Mean Plt Volume 9.8 fL 02/2019 Unknown COMPLETE BLOOD COUNT [id number] Neut Auto 64.7 % 9 Unknown COMPLETE BLOOD COUNT [id number] Lymph Auto 24.3 % 01/06/20 19 Unknown COMPLETE BLOOD COUNT [id number] [place] Auto 9.7 % 9 Unknown COMPLETE BLOOD COUNT [id number] RDW 12.2 % 9 Unknown COMPLETE BLOOD COUNT 2117078 Eos Auto 1.1 % 9 Unknown COMPLETE BLOOD COUNT [id number] Baso Auto 0.2 % 9 Unknown COMPLETE BLOOD COUNT [id number] Neutrophil Abs 3.56 10e9/L Unknown COMPLETE BLOOD COUNT [id number] Lymphocyte Abs 1.34 10e9/L Unknown COMPLETE BLOOD COUNT [id number] Monocyte Abs 0.53 10e9/L 02/2019 Unknown COMPLETE BLOOD COUNT [id number] Eosinophil Abs 0.06 10e9/L Unknown COMPLETE BLOOD COUNT [id number] RDW-SD 41.3 fL 9 Unknown COMPLETE BLOOD COUNT [id number] Basophil Abs 0.01 10e9/L 02/2019 Unknown LIPID GROUP 03928 Cholesterol 145 mg/dL 01/05/2019 Unkno wn LIPID GROUP 86353 Triglyceride 153 mg/dL 01/05/2019 Unkn own LIP[facility] GROUP 49171 HDL CHOLESTEROL 39 mg/dL 01/05/2019 U nknown LIPID GROUP 89399 Chol/HDL Ratio 3.72 ratio 01/05/2019 U nknown LIP[facility] GROUP 85227 NON-HDL Chol 106 mg/dL 01/05/2019 Unkn own L[facility] GROUP 13788 LDL Cholesterol 75 mg/dL 01/05/2019 U nknown PT 7543595 PT 30.5 Seconds 12/15/2018 Unknow n PT 9201523 INR 2.9 12/15/2018 Unknown PT 3594797 PT 17.2 Seconds 09/08/2018 Unknow n PT 6446005 INR 1.4 09/08/2018 Unknown LIPID GROUP 86645 Cholesterol 190 mg/dL 07/08/2018 Unkno wn [facility] 43047 Triglyceride 402 mg/dL 07/08/2018 Unkn own [facility] 32521 HDL CHOLESTEROL 36 mg/dL 07/08/2018 U nknown [facility] 69510 Chol/HDL Ratio 5.28 ratio 07/08/2018 U nknown [facility] 30896 NON-HDL Chol 154 mg/dL 07/08/2018 Unkn own [facility] 32393 LDL Cholesterol N/A Trig >400 018 Unknown GFR CALC 9846621 GFR Non Afr Amr >60 mL/min 07/08/2018 Un known GFR CALC 8583119 GFR Afr Amr >60 mL/min 07/08/2018 Unknow n COMPLETE BLOOD COUNT [id number] WBC 5.0 10e9/L 07/08/20 18 Unknown COMPLETE BLOOD COUNT [id number] RBC 4.08 10e12/L 2017 Unknown COMPLETE BLOOD COUNT [id number] HEMOGLOBIN 13.3 g/dL 07/08/20 18 Unknown COMPLETE BLOOD COUNT [id number] HEMATOCRIT 38.6 % 07/08/20 18 Unknown COMPLETE BLOOD COUNT 7602483 MCV 94.6 fL 8 Unknown COMPLETE BLOOD COUNT 6575221 MCH 32.6 pg 8 Unknown COMPLETE BLOOD COUNT 0964751 MCHC 34.5 g/dL 8 Unknown COMPLETE BLOOD COUNT [id number] PLATELET COUNT 205 10e9/L 02/2018 Unknown COMPLETE BLOOD COUNT [id number] Mean Plt Volume 9.8 fL 02/2018 Unknown COMPLETE BLOOD COUNT 1147665 Neut Auto 52.8 % 8 Unknown COMPLETE BLOOD COUNT [id number] Lymph Auto 33.2 % 07/08/20 18 Unknown COMPLETE BLOOD COUNT [id number] [place] Auto 11.6 % 8 Unknown COMPLETE BLOOD COUNT 0723746 RDW 12.5 % 8 Unknown COMPLETE BLOOD COUNT 0978230 Eos Auto 2.0 % 8 Unknown COMPLETE BLOOD COUNT 1489548 Baso Auto 0.4 % 8 Unknown COMPLETE BLOOD COUNT 1137013 Neutrophil Abs 2.64 10e9/L Unknown COMPLETE BLOOD COUNT [id number] Lymphocyte Abs 1.66 10e9/L Unknown COMPLETE BLOOD COUNT [id number] Monocyte Abs 0.58 10e9/L 02/2018 Unknown COMPLETE BLOOD COUNT [id number] Eosinophil Abs 0.10 10e9/L Unknown COMPLETE BLOOD COUNT [id number] RDW-SD 41.8 fL 8 Unknown COMPLETE BLOOD COUNT [id number] Basophil Abs 0.02 10e9/L 02/2018 Unknown PT [id number] PT 32.9 Seconds 07/08/2018 Unknow n PT 8400510 INR 3.2 07/08/2018 Unknown PT 3972645 PT TNP:Duplicate Order 8 Unknown PT 1096936 INR TNP:Duplicate Order 8 Unknown COMPREHENSIVE METABOLIC 76905 AST TNP:Duplicate Or grace 07/08/2018 Unknown COMPREHENSIVE METABOLIC 22404 ALT TNP:Duplicate Or grace 07/08/2018 Unknown COMPREHENSIVE METABOLIC 70145 BUN TNP:Duplicate Or grace 07/08/2018 Unknown COMPREHENSIVE METABOLIC 18417 ALBUMIN TNP:Duplicate Or grace 07/08/2018 Unknown COMPREHENSIVE METABOLIC 10068 CHLORIDE TNP:Duplicate Or grace 07/08/2018 Unknown COMPREHENSIVE METABOLIC 81168 Bili Total TNP:Duplicate O rder 07/08/2018 Unknown COMPREHENSIVE METABOLIC 88496 ALK PHOS TNP:Duplicate Or grace 07/08/2018 Unknown COMPREHENSIVE METABOLIC 14145 SODIUM TNP:Duplicate Or grace 07/08/2018 Unknown COMPREHENSIVE METABOLIC 53730 CREATININE TNP:Duplicate O rder 07/08/2018 Unknown COMPREHENSIVE METABOLIC 59203 CALCIUM TNP:Duplicate Or grace 07/08/2018 Unknown COMPREHENSIVE METABOLIC 75112 POTASSIUM TNP:Duplicate Or grace 07/08/2018 Unknown COMPREHENSIVE METABOLIC 92356 Total Protein TNP:Duplicat e Order 07/08/2018 Unknown COMPREHENSIVE METABOLIC 70433 Glucose TNP:Duplicate Or grace 07/08/2018 Unknown COMPREHENSIVE METABOLIC 96436 Bicarbonate TNP:Duplicate Order 07/08/2018 Unknown COMPREHENSIVE METABOLIC 18391 AGAP TNP:Duplicate Or grace 07/08/2018 Unknown COMPREHENSIVE METABOLIC 05732 AST 17 U/L 2017 Unknown COMPREHENSIVE METABOLIC 72577 ALT 12 U/L 2017 Unknown COMPREHENSIVE METABOLIC 79949 BUN 20 mg/dL 2017 Unknown COMPREHENSIVE METABOLIC 36438 ALBUMIN 4.0 g/dL 2017 Unknown COMPREHENSIVE METABOLIC 86509 CHLORIDE 107 mmol/L 07/08 Unknown COMPREHENSIVE METABOLIC 21169 Bili Total 0.3 mg/dL 07/08 Unknown COMPREHENSIVE METABOLIC 29721 ALK PHOS 58 U/L 2017 Unknown COMPREHENSIVE METABOLIC 31330 SODIUM 139 mmol/L 07/08 Unknown COMPREHENSIVE METABOLIC 16321 CREATININE 0.72 mg/dL 02/2018 Unknown COMPREHENSIVE METABOLIC 83102 CALCIUM 7.8 mg/dL 2017 Unknown COMPREHENSIVE METABOLIC 41133 POTASSIUM 4.1 mmol/L 07/08 Unknown COMPREHENSIVE METABOLIC 37332 Total Protein 6.2 g/dL Unknown COMPREHENSIVE METABOLIC 52168 Glucose 107 mg/dL 2017 Unknown COMPREHENSIVE METABOLIC 18418 Bicarbonate 22 mmol/L 02/2018 Unknown COMPREHENSIVE METABOLIC 81844 AGAP 10 mmol/L 2017 Unknown GFR CALC 8992963 GFR Non Afr Amr >60 mL/min 11/28/2017 Un known GFR CALC 7926463 GFR Afr Amr >60 mL/min 11/28/2017 Unknow n THYROID STIMULATING HORMONE 87028 TSH 4.029 uIU/mL 11/28/2017 Unknown LIPID GROUP 08013 Cholesterol 181 mg/dL 11/28/2017 Unkno wn LIPID GROUP 18194 Triglyceride 193 mg/dL 11/28/2017 Unkn own LIPID GROUP 73768 HDL CHOLESTEROL 36 11/28/2017 U nknown LIPID GROUP 80008 Chol/HDL Ratio 5.03 ratio 11/28/2017 U nknown LIPID GROUP 80634 NON-HDL Chol 145 mg/dL 11/28/2017 Unkn own LIPID GROUP 43320 LDL Cholesterol 106 mg/dL 11/28/2017 U nknown PT 4897227 PT 22.2 Seconds 11/28/2017 Unknow n PT 4452308 INR 2.0 11/28/2017 Unknown COMPREHENSIVE METABOLIC 66462 AST 19 U/L 2017 Unknown COMPREHENSIVE METABOLIC 51709 ALT 16 U/L 2017 Unknown COMPREHENSIVE METABOLIC 11890 BUN 22 mg/dL 2017 Unknown COMPREHENSIVE METABOLIC 26684 ALBUMIN 4.1 g/dL 2017 Unknown COMPREHENSIVE METABOLIC 53574 CHLORIDE 108 mmol/L 11/28 Unknown COMPREHENSIVE METABOLIC 42413 Bili Total 0.5 mg/dL 11/28 Unknown COMPREHENSIVE METABOLIC 26077 ALK PHOS 53 U/L 2017 Unknown COMPREHENSIVE METABOLIC 38944 SODIUM 141 mmol/L 11/28 Unknown COMPREHENSIVE METABOLIC 95210 CREATININE 0.83 mg/dL 11/05 Unknown COMPREHENSIVE METABOLIC 02061 CALCIUM 9.1 mg/dL 2017 Unknown COMPREHENSIVE METABOLIC 30590 POTASSIUM 4.6 mmol/L 11/28 Unknown COMPREHENSIVE METABOLIC 09396 Total Protein 6.5 g/dL Unknown COMPREHENSIVE METABOLIC 47371 Glucose 106 mg/dL 2017 Unknown COMPREHENSIVE METABOLIC 45416 Bicarbonate 26 mmol/L 11/05 Unknown COMPREHENSIVE METABOLIC 35791 AGAP 7 mmol/L 2017 Unknown COMPLETE BLOOD COUNT 3188587 WBC 5.1 10e9/L 11/28/19 18 Unknown COMPLETE BLOOD COUNT [id number] RBC 4.22 10e12/L 2017 Unknown COMPLETE BLOOD COUNT 7447970 HEMOGLOBIN 13.5 g/dL 11/28/19 18 Unknown COMPLETE BLOOD COUNT 9097836 HEMATOCRIT 39.1 % 11/28/19 18 Unknown COMPLETE BLOOD COUNT [id number] MCV 92.7 fL 8 Unknown COMPLETE BLOOD COUNT 6371294 MCH 32.0 pg 8 Unknown COMPLETE BLOOD COUNT 6417010 MCHC 34.5 g/dL 8 Unknown COMPLETE BLOOD COUNT 2306868 PLATELET COUNT 226 10e9/L Unknown COMPLETE BLOOD COUNT 6862658 Mean Plt Volume 9.6 fL Unknown COMPLETE BLOOD COUNT 9540499 Neut Auto 49.5 % 8 Unknown COMPLETE BLOOD COUNT 5253744 Lymph Auto 35.3 % 11/28/19 18 Unknown COMPLETE BLOOD COUNT [id number] [place] Auto 12.4 % 8 Unknown COMPLETE BLOOD COUNT 5613361 RDW 12.4 % 8 Unknown COMPLETE BLOOD COUNT 4259280 Eos Auto 2.2 % 8 Unknown COMPLETE BLOOD COUNT 2306183 Baso Auto 0.6 % 8 Unknown COMPLETE BLOOD COUNT [id number] Neutrophil Abs 2.52 10e9/L Unknown COMPLETE BLOOD COUNT [id number] Lymphocyte Abs 1.80 10e9/L Unknown COMPLETE BLOOD COUNT [id number] Monocyte Abs 0.63 10e9/L 11/05 Unknown COMPLETE BLOOD COUNT 0298359 Eosinophil Abs 0.11 10e9/L Unknown COMPLETE BLOOD COUNT 0266409 RDW-SD 41.2 fL 8 Unknown COMPLETE BLOOD COUNT [id number] Basophil Abs 0.03 10e9/L 11/05 Unknown Procedures Procedure Codes Date SARSCOV & INF VIR A&B AG IA CPT-4: 93494 10/04/2021 FLU VACC PRSV FREE INC ANTIG 65 AND OLDER CPT-4: 43198 08/18/2021 FLU VACC PRSV FREE INC ANTIG 65 AND OLDER CPT-4: 46090 08/18/2021 ADMIN INFLUENZA VIRUS VAC CPT-4: G0008 08/18/2021 ROUTINE VENIPUNCTURE CPT-4: 87335 07/05/2021 PROTHROMBIN TIME CPT-4: 34390 07/05/2021 PPPS, subseq visit CPT-4: G0439 10/12/2020 ROUTINE VENIPUNCTURE CPT-4: 61899 04/06/2020 COMPREHEN METABOLIC PANEL CPT-4: 36839 04/06/2020 COMPLETE CBC W/AUTO DIFF WBC CPT-4: 12975 04/06/2020 PROTHROMBIN TIME CPT-4: 42592 04/06/2020 PPPS, subseq visit CPT-4: G0439 09/02/2019 ROUTINE VENIPUNCTURE CPT-4: 09933 09/02/2019 PROTHROMBIN TIME CPT-4: 11625 09/02/2019 FLU VACC PRSV FREE INC ANTIG 65 AND OLDER CPT-4: 13764 08/20/2018 PNEUMOCOCCAL VACC 23 BRIDGET IM CPT-4: 65200 08/20/2018 ADMIN INFLUENZA VIRUS VAC CPT-4: G0008 08/20/2018 ADMIN PNEUMOCOCCAL VACCINE CPT-4: G0009 08/20/2018 PPPS, subseq visit CPT-4: G0439 11/27/2017 FLU VACC PRSV FREE INC ANTIG 65 AND OLDER CPT-4: 03850 08/14/2017 PNEUMOCOCCAL VACC 13 BRIDGET IM CPT-4: 87767 08/14/2017 ADMIN INFLUENZA VIRUS VAC CPT-4: G0008 08/14/2017 ADMIN PNEUMOCOCCAL VACCINE CPT-4: G0009 08/14/2017 FLU VACC PRSV FREE INC ANTIG 65 AND OLDER CPT-4: 59709 10/03/2016 ADMIN INFLUENZA VIRUS VAC CPT-4: G0008 10/03/2016 PPPS, subseq visit CPT-4: G0439 10/10/2015 FLUZONE, 5ML (Medicare) CPT-4: Q2038 09/01/2014 ADMIN INFLUENZA VIRUS VAC CPT-4: G0008 09/01/2014 Vital Signs Date Vital 07/05/2021 Blood Pressure 1: 122/80 Code: 8480-6 Heart Rate 1: 92 bpm Respiratory Rate: 20 bpm SpO2: 96% Temperature: 36.8 (C) / 98.2 (F) We ight: 207 lbs Code: 85835-7 04/26/2021 Blood Pressure 1: 126/82 Code: 8480-6 Heart Rate 1: 104 bpm Respiratory Rate: 20 bpm SpO2: 96% Temperature: 36.7 (C) / 98.1 (F) We ight: 212 lbs Code: 30958-2 10/12/2020 Blood Pressure 1: 104/68 Code: 8480-6 BMI: 31.6 Code: 28465-4 Heart Rate 1: 96 bpm Height: 5'7" Code: 8302-2 Respiratory Rate: 20 bpm SpO2: 95% Temperature: 36.9 (C) / 98.5 (F) Weight: 202 lbs Code: 95555-9 07/13/2020 Blood Pressure 1: 128/72 Code: 8480-6 Heart Rate 1: 76 bpm Respiratory Rate: 18 bpm SpO2: 97% Temperature: 36.3 (C) / 97.3 (F) We ight: 190 lbs Code: 98998-6 04/06/2020 Blood Pressure 1: 106/68 Code: 8480-6 BMI: 29.1 Code: 47821-6 Heart Rate 1: 96 bpm Height: 5'7" Code: 8302-2 Respiratory Rate: 20 bpm SpO2: 96% Temperature: 36.8 (C) / 98.2 (F) Weight: 186 lbs Code: 89964-6 09/02/2019 Blood Pressure 1: 94/50 Code: 8480-6 BMI: 29.8 C ode: 46120-2 Heart Rate 1: 68 bpm Height: 5'7" Code: 8302-2 Respiratory Rate: 20 bpm SpO2: 96% Temperature: 36.6 (C) / 97.9 (F) Weight: 190 lbs Code: 08745-8 07/01/2019 Blood Pressure 1: 112/60 Code: 8480-6 Heart Rate 1: 88 bpm Respiratory Rate: 20 bpm SpO2: 94% Temperature: 36.8 (C) / 98.2 (F) We ight: 201 lbs Code: 80602-4 05/27/2019 Blood Pressure 1: 104/50 Code: 8480-6 Heart Rate 1: 62 bpm SpO2: 95% Temperature: 36.3 (C) / 97.4 (F) Weight: 204 lbs Code: 12388-0 04/22/2019 Blood Pressure 1: 112/72 Code: 8480-6 Heart Rate 1: 64 bpm Respiratory Rate: 20 bpm SpO2: 95% Temperature: 36.8 (C) / 98.2 (F) We ight: 207 lbs Code: 81705-5 02/09/2019 Blood Pressure 1: 104/60 Code: 8480-6 Heart Rate 1: 72 bpm Respiratory Rate: 20 bpm SpO2: 95% Temperature: 37.1 (C) / 98.8 (F) We ight: 216 lbs Code: 13072-7 01/07/2019 Blood Pressure 1: 122/74 Code: 8480-6 Heart Rate 1: 96 bpm Respiratory Rate: 20 bpm SpO2: 96% Temperature: 36.7 (C) / 98.1 (F) We ight: 219 lbs Code: 88552-1 07/09/2018 Blood Pressure 1: 118/65 Code: 8480-6 Heart Rate 1: 62 bpm SpO2: 94% Temperature: 36.2 (C) / 97.1 (F) Weight: 237 lbs Code: 42042-6 11/27/2017 Blood Pressure 1: 124/70 Code: 8480-6 BMI: 35.2 Code: 81024-0 Heart Rate 1: 64 bpm Height: 5'8" Code: 8302-2 Respiratory Rate: 20 bpm SpO2: 94% Temperature: 36.9 (C) / 98.5 (F) Weight: 235 lbs Code: 39266-9 10/10/2015 Blood Pressure 1: 126/78 Code: 8480-6 BMI: 36.0 Code: 74634-4 Heart Rate 1: 72 bpm Height: 5'8" Code: 8302-2 Respiratory Rate: 20 bpm Temperatu re: 36.9 (C) / 98.4 (F) Weight: 240 lbs Code: 34237-8 09/01/2014 Blood Pressure 1: 114/70 Code: 8480-6 BMI: 35.4 Code: 46108-6 Heart Rate 1: 76 bpm Height: 5'8" Code: 8302-2 Respiratory Rate: 20 bpm Temperatu re: 36.7 (C) / 98.1 (F) Weight: 236 lbs Code: 22052-2 07/02/2013 Blood Pressure 1: 124/90 Code: 8480-6 BMI: 33.7 Code: 92358-6 Heart Rate 1: 76 bpm Height: 5'8" Code: 8302-2 Respiratory Rate: 20 bpm Temperatu re: 36.6 (C) / 97.8 (F) Weight: 225 lbs Code: 05830-4 06/25/2012 Blood Pressure 1: 144/100 Code: 8480-6 BMI: 34.5 Code: 51041-0 Heart Rate 1: 76 bpm Height: 5'8" Code: 8302-2 Respiratory Rate: 20 bpm Temperatu re: 36.6 (C) / 97.9 (F) Weight: 230 lbs Code: 83049-6 05/15/2012 Blood Pressure 1: 112/70 Code: 8480-6 BMI: 34.6 Code: 12746-1 Heart Rate 1: 76 bpm Height: 5'8" Code: 8302-2 Respiratory Rate: 20 bpm Temperatu re: 37.0 (C) / 98.6 (F) Weight: 231 lbs Code: 25646-3 12/06/2011 Blood Pressure 1: 142/90 Code: 8480-6 BMI: 35.4 Code: 39023-8 Heart Rate 1: 72 bpm Height: 5'8" Code: 8302-2 Respiratory Rate: 20 bpm Temperatu re: 36.9 (C) / 98.4 (F) Weight: 236 lbs Code: 93991-1 10/30/2010 Blood Pressure 1: 114/78 Code: 8480-6 Heart Rate 1: 76 bpm Temperature: 36.3 (C) / 97.4 (F) Weight: 228 lbs Code: 46317-5 Functional Status No Functional Status data Reason For Visit Reason For Visit Effective Dates Notes cough 10/05/2021 Patient COVID positi ve on 10/04/21 and his symptoms began on 09/29/21 cough 10/04/2021 positive for CO VID per home test injection(s) 08/18/2021 flu shot follow up 07/05/2021 follow up 04/26/2021 well man exam (65+ years) 10/12/2020 follow up 07/13/2020 follow up 04/06/2020 well man exam (65+ years) 09/02/2019 follow up 07/01/2019 follow up 05/27/2019 follow up on bowel i ssues follow up 04/22/2019 follow up 02/09/2019 follow up 01/07/2019 injection(s) 08/20/2018 flu and pneumovax memory loss 07/09/2018 well man exam (65+ years) 11/27/2017 Wellness Physi sarah injection(s) 08/14/2017 flu and prevnar vacc ine injection(s) 10/03/2016 Flu shot well man exam (65+ years) 10/10/2015 high blood pressure 09/01/2014 Need to discuss some thing to replace namenda xr until it becomes available again follow up 07/02/2013 Discuss labs follow up 06/25/2012 follow up 05/15/2012 6mo fwup/discuss lab s Annual Checkup 12/06/2011 discuss labs anxiety 10/30/2010 request more than 40 pills at a time on the ativan; Encounters Encounter Performer Location Codes Date () OFFICE/OUTPATIENT VISIT EST Diagnosis: COVID-19[ICD10: U07.1] Diagnosis: Dementia in other diseases classified elsewhere without behavioral disturbance[ICD10: F02.80] Diagnosis: Alzheimer's dementia[ICD10: G30.9] Roxie Lopez [facility] CPT-4: 77319 10/05/2021 ([id number]) NURSE/OUTPATIENT VISIT EST Diagnosis: Cough[ICD10: R05.9] Diagnosis: Exposure to COVID-19 virus[ICD10: Z20.822] Roxie LOPEZ DO [facility] CPT-4: 00462 10/04/2021 ([id number]) NURSE/OUTPATIENT VISIT EST Diagnosis: FLU VACCINE[ICD10: Z23] Roxie MOSQUERA DO [facility] CPT-4: 65800 08/18/2021 ([id number]) OFFICE/OUTPATIENT VISIT EST Diagnosis: Parkinson disease[ICD10: G20] 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] Roxie LOPEZ DO [facility] CPT-4: 98415 07/05/2021 ([id number]) OFFICE/OUTPATIENT VISIT EST Diagnosis: Parkinson disease[ICD10: G20] Diagnosis: Dementia[ICD10: F03.90] Roxie MOSQUERA [employer] [facility] CPT-4: 20419 04/26/2021 ([id number]) OFFICE/OUTPATIENT VISIT EST Diagnosis: 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] Diagnosis: 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: G30.9] Roxie LOPEZ DO [facility] CPT-4: 53975 07/13/2020 ([id number]) OFFICE/OUTPATIENT VISIT EST Diagnosis: Alzheimer's disease, unspecified[ICD10: G30.9] Roxie LOPEZ DO [facility] CPT-4: 68514 04/06/2020 ([id number]) OFFICE/OUTPATIENT VISIT EST Diagnosis: Alzheimer's disease with late onset[ICD10: G30.1] Diagnosis: Generalized anxiety disorder[ICD10: F41.1] Diagnosis: Unspecified dementia with behavioral disturbance[ICD10: F03.91] Roxie LOPEZ DO [facility] CPT-4: 08316 07/01/2019 ([id number]) OFFICE/OUTPATIENT VISIT EST Diagnosis: Alzheimer's disease with late onset[ICD10: G30.1] Diagnosis: Abnormal weight loss[ICD10: R63.4] Diagnosis: Essential (primary) hypertension[ICD10: I10] Diagnosis: Melena[ICD10: K92.1] Diagnosis: Unspecified dementia with behavioral disturbance[ICD10: F03.91] Diagnosis: Spontaneous ecchymoses[ICD10: R23.3] Roxie ROCHE RmDiane BRAYDON [employer] [facility] CPT-4: 46728 05/27/2019 ([id number]) OFFICE/OUTPATIENT VISIT EST Diagnosis: 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] Diagnosis: Alzheimer's disease with late onset[ICD10: G30.1] Diagnosis: Melena[ICD10: K92.1] Diagnosis: Abnormal weight loss[ICD10: R63.4] Roxie VENEGAS RmDiane JULIO [employer] [facility] CPT-4: 49357 04/22/2019 ([id number]) OFFICE/OUTPATIENT VISIT EST Diagnosis: 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] Diagnosis: Slow transit constipation[ICD10: K59.01] Diagnosis: Unspecified dementia with behavioral disturbance[ICD10: F03.91] Roxie FAUSTIN RmDiane BRAYDON [facility] CPT-4: 66675 02/09/2019 ([id number]) OFFICE/OUTPATIENT VISIT EST Diagnosis: Alzheimer's disease with late onset[ICD10: G30.1] Diagnosis: 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] Diagnosis: Nocturia[ICD10: R35.1] Diagnosis: Constipation, unspecified[ICD10: K59.00] Roxie FAUSTIN RmDiane JULIO [facility] CPT-4: 01781 01/07/2019 ([id number]) NURSE/OUTPATIENT VISIT EST Diagnosis: FLU VACCINE[ICD10: Z23] Diagnosis: PNEUMOCOCCAL VACCINE[ICD10: Z23] Roxie FAUSTIN RmDiane JULIO [facility] CPT-4: 24030 08/20/2018 ([id number]) OFFICE/OUTPATIENT VISIT EST Diagnosis: Mixed hyperlipidemia[ICD10: E78.2] Diagnosis: Essential (primary) hypertension[ICD10: I10] Diagnosis: Alzheimer's disease, unspecified[ICD10: G30.9] Roxie LOPEZ [facility] CPT-4: 93681 07/09/2018 ([id number]) OFFICE/OUTPATIENT VISIT EST Diagnosis: PNEUMOCOCCAL VACCINE[ICD10: Z23] Diagnosis: FLU VACCINE[ICD10: Z23] Roxie BRYSON [facility] CPT-4: 94642 08/14/2017 ([id number]) OFFICE/OUTPATIENT VISIT EST Diagnosis: FLU VACCINE[ICD10: Z23] Roxie BRYSON [facility] CPT-4: 54307 10/03/2016 ([id number]) OFFICE/OUTPATIENT VISIT EST Diagnosis: HYPERTENSION[ICD9: 401.9] Diagnosis: HYPERLIPIDEMIA NEC/NOS[ICD9: 272.4] Diagnosis: MEMORY LOSS[ICD9: 780.93] Diagnosis: - I - ANXIETY STATE NOS[ICD9: 300.00] Diagnosis: FLU VACCINE[ICD10: Z23] Roxie BRYSON [facility] CPT-4: 80211 09/01/2014 OFFICE/OUTPATIENT VISIT EST Diagnosis: HYPERTENSION[ICD9: 401.9] Diagnosis: CAD[ICD9: 414.00] Diagnosis: HYPERLIPIDEMIA NEC/NOS[ICD9: 272.4] Diagnosis: MEMORY LOSS[ICD9: 780.93] Diagnosis: ANXIETY STATE NOS[ICD9: 300.00] Diagnosis: Testicular pain[ICD9: 608.9] Roxie LOPEZ [facility] CPT-4: 00595 07/02/2013 ([id number]) OFFICE/OUTPATIENT VISIT EST Diagnosis: MEMORY LOSS[ICD9: 780.93] Roxie THOMPSON [facility] CPT-4: 01662 06/25/2012 ([id number]) OFFICE/OUTPATIENT VISIT EST Diagnosis: HYPERLIPIDEMIA NEC/NOS[ICD9: 272.4] Diagnosis: HYPERTENSION[ICD9: 401.9] Diagnosis: CAD[ICD9: 414.00] Diagnosis: MEMORY LOSS[ICD9: 780.93] Roxie THOMPSON NDER [facility] CPT-4: 69110 05/15/2012 PER PM REEVAL EST PAT 65+ YR Diagnosis: ROUTINE MEDICAL EXAM[ICD9: V70.0] Diagnosis: HYPERLIPIDEMIA NEC/NOS[ICD9: 272.4] Diagnosis: HYPERTENSION[ICD9: 401.9] Diagnosis: CAD[ICD9: 414.00] Diagnosis: Seborrheic dermatitis[ICD9: 690.10] Roxie PERRY Krish LOPEZ [facility] CPT-4: 07136 12/06/2011 ([id number]) OFFICE/OUTPATIENT VISIT, EST Roxie GENTILE RmDiane JULIO [facility] CPT-4: 91021 10/30/2010 Plan of Care Planned Activity Notes Codes Status Date Visit Diagnosis Plan: COVID-19 Discussion: Telemed dox y.wa video visit done with COVID positive and Flu A and B negative Vitamin D 5000u daily Vitamin C 500mg daily Melatonin 5mg po q PM prn Pepcid 20mg daily prn Zinc 50-100mg daily Aspirin 325mg daily for 1 month then 1/2 tablet daily for 1month then stop if he is not taking his coumadin, otherwise just stay on coumadin Agrees to monoclonal antibody infusion Will notify if worsening or go to ER if worsening respiratory status Understands that he is in isolation from 10 days of onset of symptoms and HD will be contacting him Liquid zithromax and dexamethasone sent out ICD-9 : 079.89 ICD-10 : U07.1 10/05/2021 Visit Diagnosis Plan: Dementia in other diseases classified elsewhere without behavioral disturbance Discussion: Worsening per --more dif ficulty taking meds and following commands ICD-10 : F02.80 10/05/2021 Appointment[facility] [phone] [facility] [facility] 10/04/2021 App[facility]ment[facility] [phone] [facility] [facility] Immun[facility] 08/18/2021 Visit Diagnosis Plan: Parkinson disease Discussion: In crease sinemet 25/100mg 2po BID Call in 1month ICD-9 : 332.0 ICD-10 : G20 07/05/2021 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 Discussion: PT/INR drawn ICD-9 : V58.61 ICD-10 : Z79.01 07/05/2021 Appointment: Roxie Lopeztel: [address] [place] [address] [place] FOLLOW UP 07/05/2021 Visit Diagnosis Plan: Parkinson disease Discussion: Tr ial of sinemet 25/100mg po BID Fwup 2mos ICD-9 : 332.0 ICD-10 : G20 04/26/2021 Appointment: Roxie Lopez WPtel: [address] [place], [place] [phone] [place] FOLLOW UP 04/26/2021 Appointment: Roxie Lopez WPtel: [address] [place] [address] [place] CANCELED 01/11/2021 Visit Diagnosis Plan: Encounter for [facility] adult medical examination without abnormal findings Discussion: Mediterranean diet Combinati on of cardio and weight bearing exercise Had flu shot Update fasting lab ICD-9 : V70.9 ICD-10 : Z00.00 10/12/2020 Visit Diagnosis Plan: Mixed hyperlipidemia Follow Up: 6 months ICD-9 : 272.4 ICD-10 : E78.2 10/12/2020 Visit Diagnosis Plan: 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 Discussion: Ongoing ICD-9 : 331.0 ICD-10 : G30.1 10/12/2020 Visit Diagnosis Plan: intermediate (current) use of antic oagulants Discussion: Update PT/INR ICD-9 : V58.61 ICD-10 : Z79.01 10/12/2020 Appointment: Roxie Lopez WPtel: [address] [place], [place] [phone] [place] Annual Well Visit 10/12/2020 Visit Diagnosis Plan: Dementia in other diseases classified elsewhere with behavioral disturbance Discussion: Continue with current meds W [place] does not want to change meds at this time Did discuss in home care or adult daycare but states they cannot afford--she is home all days except Thurs/Fri and on those days her son and Grandson are there Return in 2 weeks for flu shot if we have them by then Follow Up: 6 months ICD-10 : F02.81 07/13/2020 Appointment: Roxie Lopez WPtel: [address] [place], [place] [phone] [place] FOLLOW UP 07/13/2020 Care Plan: PT Pending 06/27/2020 Visit Diagnosis Plan: Alzheimer's disease, unspecified Discussion: Worsening has started OTC supplements Inquiring about meals on wheels Follow Up: 3 months ICD-9 : 331.0 ICD-10 : G30.9 04/06/2020 Appointment: Roxie Lopez WPtel: [address] [place], [place] [id number] [place] FOLLOW UP 04/06/2020 Care Plan: Referral Order SNOMED-CT : [id number] Pending 04/06/2020 Appointment: Roxie Lopez WPtel: [address] [place], [place] [phone] [place] RESCHEDULED 02/24/2020 Care Plan: [place]PREH[place] : [address]-0 Pending 12/14/2019 Care Plan: LIPID PANEL LOINC : 40118-6 Pending 12/14/2019 Care Plan: PT Pending 12/14/2019 Care Plan: ASSAY OF PSA TOTAL LOINC : 12 841-3 Pending 12/14/2019 Care Plan: CBC Pending 12/14/2019 Visit Diagnosis Plan: Abnormal weight loss Discussion: Discussed may be from Alzheimers and disease process and forgetting to eat but also discussed possible cancer etiology but defers workup due to alzheimers Follow Up: 3 months ICD-9 : 783.21 ICD-10 : R63.4 09/02/2019 Visit Diagnosis Plan: Hypotension Discussion: DC metop rolol ICD-9 : 458.9 ICD-10 : I95.9 09/02/2019 Visit Diagnosis Plan: Encounter for gene ral adult medical examination without abnormal findings Discussion: Mediterranean diet Combinati on of cardio and weight bearing exercise DC pravastatin ICD-9 : V70.0 ICD-10 : Z00.00 09/02/2019 Visit Diagnosis Plan: Encounter for therapeutic drug l evel monitoring Discussion: Check PT/INR ICD-9 : V58.61 ICD-10 : Z51.81 09/02/2019 Appointment: Roxie Lopez WPtel: [address] [place], [place] [phone] [place] originally 2 mo follow up Annual Well Visit 08/06 Visit Diagnosis Plan: Generalized anxiety disorder Dis cussion: Depakote already helping Follow Up: 2 months ICD-9 : 300.00 ICD-10 : F41.1 07/01/2019 Appointment: Roxie Lopez WPtel: [address] [place], [place] [phone] [place] FOLLOW UP 07/01/2019 Visit Diagnosis Plan: Spontaneous ecchymoses Discussio n: Decrease coumadin to 4mg M, W, F and 3mg all other days ICD-9 : 782.7 ICD-10 : R23.3 05/27/2019 Visit Diagnosis Plan: Unspecified dementia with behavi oral disturbance Discussion: Increase Depakote to 250mg po BID Follow Up: 1 months ICD-9 : 294.21 ICD-10 : F03.91 05/27/2019 Visit Diagnosis Plan: Essential (primary) hypertension Discussion: Decrease metoprolol to 25mg po BID ICD-9 : 401.9 ICD-10 : I10 05/27/2019 Visit Diagnosis Plan: Melena Discussion: Resolved ICD-9 : 578.1 ICD-10 : K92.1 05/27/2019 Appointment: Roxie Lopez WPtel: [address] [place], [place] [phone] [place] FOLLOW UP 05/27/2019 Visit Diagnosis Plan: Melena Discussion: Check CBC and iron/ferritin levels Recommend EGD and colonoscopy but patiet will need admitted to complete prep and will need to be there and can't get away from work for at least another month Follow Up: 1 months ICD-9 : 578.1 ICD-10 : K92.1 04/22/2019 Visit Diagnosis Plan: Psychophysiologic insomnia Discu ssion: Discussed adding on mood stabilizer ICD-9 : 780.52 ICD-10 : F51.04 04/22/2019 Appointment: Roxie Lopez WPtel: [address] [place], [place] [phone] [place] FOLLOW UP 04/22/2019 Visit Diagnosis Plan: Unspecified dementia with behavi oral disturbance Discussion: Increase lexapro to 20mg po q HS Follow Up: 2 months ICD-9 : 294.21 ICD-10 : F03.91 02/09/2019 Visit Diagnosis Plan: Psychophysiologic insomnia Discu ssion: Increase doxepin to 25mg po q HS ICD-9 : 780.52 ICD-10 : F51.04 02/09/2019 Visit Diagnosis Plan: Slow transit constipation Discus cierra: Start stool softener every other day ICD-9 : 564.01 ICD-10 : K59.01 02/09/2019 Appointment: Roxie Lopez WPtel: [phone] [facility] FOLLOW UP 02/09/2019 Patient Education: escitalopram oxalate- [employer] [id number] Completed 02/09/2019 Patient Education: doxepin- [employer] [id number] Completed 02/09/2019 Visit Diagnosis Plan: Nocturia Discussion: Flomax 0.4m g q HS ICD-9 : 788.43 ICD-10 : R35.1 01/07/2019 Visit Diagnosis Plan: Constipation, unspecified Discus cierra: Add stool softener BID Recheck 1month ICD-9 : 564.00 ICD-10 : K59.00 01/07/2019 Visit Diagnosis Plan: 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 Discussion: Worsening with behavior disorder Will focus on sleep first with doxepin 10-20mg q HS and notify if not working ICD-9 : 331.0 ICD-10 : G30.1 01/07/2019 Visit Diagnosis Plan: Psychophysiologic insomnia Follo w Up: 1 months ICD-9 : 780.52 ICD-10 : F51.04 01/07/2019 Appointment: [facility] [phone] [facility] [facility] 01/07/2019 Patient Education: tamsulosin- [employer] [id number] Completed 01/07/2019 Patient Education: doxepin- [employer] [id number] Completed 01/07/2019 Care Plan: [place] : [address]-6 Pending 12/17/2018 Care Plan: CBC Pending 12/17/2018 Care Plan: LIPID PANEL LOINC : 95838-5 Pending 12/17/2018 Appointment: Roxie Lopez WPtel: [address] [place], [place] [phone] [place] INJECTION 08/20/2018 Patient Education: Patient Medication Summary Completed 08/20/2018 Visit Diagnosis Plan: Alzheimer's disease, unspecified Discussion: Stable Recommend Shingrix Return next month for flu shot Follow Up: 6 months ICD-9 : 331.0 ICD-10 : G30.9 07/09/2018 Visit Diagnosis Plan: Mixed hyperlipidemia Discussion: Focus on lifestyle changes and recheck in 6mos ICD-9 : 272.4 ICD-10 : E78.2 07/09/2018 Visit Diagnosis Plan: Essential (primary) hypertension Discussion: Stable ICD-9 : 401.9 ICD-10 : I10 07/09/2018 Appointment: Roxie Lopez WPtel: [address] [place] [address] FOLLOW UP 07/09/2018 Patient Education: Patient Medication Summary Completed 07/09/2018 Visit Diagnosis Plan: Generalized anxiety disorder Dis cussion: Add lexapro 10mg q HS ICD-9 : 300.00 ICD-10 : F41.1 11/27/2017 Visit Diagnosis Plan: Alzheimer's disease, unspecified Discussion: Change Namenda XR to Namenda 10mg po BI Follow Up: 3 months ICD-9 : 331.0 ICD-10 : G30.9 11/27/2017 Visit Diagnosis Plan: Encounter for [facility] adult medical examination without abnormal findings Discussion: Update fasting lab ICD-9 : V70.0 ICD-10 : Z00.00 11/27/2017 Appointment: Roxie Lopez WPtel: [facility] [address] Annual Well Visit 11/27/2017 Patient Education: Patient Medication Summary Completed 11/27/2017 Patient Education: Patient Medication Summary Completed 11/14/2017 Care Plan: CBC Pending 11/14/2017 Care Plan: PT Pending 11/14/2017 Care Plan: [place] : [address]58[address]-2 Pending 11/14/2017 Care Plan: LIPID PANEL LOINC : 70352-7 Pending 11/14/2017 Care Plan: ASSAY THYROID STIM HORMONE [place] 11/14/2017 Appointment: Roxie Lopez WPtel: [address] [place], [place] [phone] [place] INJECTION 08/14/2017 Patient Education: Patient Medication Summary Completed 08/14/2017 Appointment: Roxie Lopez WPtel: [address] [place], [place] [phone] [place] INJECTION 10/03/2016 Patient Education: Patient Medication Summary Completed 10/03/2016 Patient Education: Patient Medication Summary Completed 01/02/2016 Care Plan: CBC Ordered 01/02/2016 Visit Plan: Check fasting lab with next PT/INR Continue current meds Discussed trial of PPI but states gaviscon works if will take so will just try it 10/10/2015 Appointment: Roxie Lopez WPtel: [address] [place] [address] 10/07/15 appt confirmed cn Annual Well Visit 05/2015 Patient Education: Patient Medication Summary Completed 10/10/2015 Appointment: Roxie Lopez WPtel: [address] [place], [place] [phone] 08/31 no answer cell # 08/31 vm 2nd # FOLLOW UP 09/01/2014 Patient Education: Patient Medication Summary Completed 09/01/2014 Patient Education: Patient Medication Summary Completed 08/23/2014 Visit Plan: Lab discussed Check testicul ar US Change namenda to Namenda XR 23mg QD Check PSA 07/02/2013 Appointment: Roxie Lopez WPtel: [address] [place] [address] ACUTE ILLNESS 07/02/2013 Patient Education: Patient Medication Summary Completed 07/02/2013 Visit Plan: Continue namenda 10mg po BID Discussed aricept 06/25/2012 Appointment: Roxie Lopez WPtel: [address] [place] [address] [place] confirmed w ACUTE ILLNESS 06/25/2012 Patient Education: Patient Medication Summary Completed 06/25/2012 Appointment: Roxie Lopez WPtel: [address] [place] [address] FOLLOW UP 05/15/2012 Patient Education: Patient Medication Summary Completed 05/15/2012 Visit Plan: Continue current meds Lab di scussed Long discussion about meds, diet, exercise and weight loss for decreasing TG and elevating HDL Add Nystatin/TAC cream to use prn 12/06/2011 Appointment: Roxie Lopez WPtel: [address] [place] [address] CHECK UP 12/06/2011 Patient Education: Patient Medication Summary Completed 12/06/2011 Visit Plan: Check fasting lab--CMP, lipi ds, PSA, PT/INR Loan deferment paperwork filled out 10/30/2010 Appointment: Roxie Lopez WPtel: [address] [place] [address] ESTABLISHED PATIENT 10/30/2010 Patient Education: Patient Medication Summary Completed 10/30/2010 Referral: Angeline Arellano WPtel: [address] [place] [address] Referral Appointment Requested Instructions Comment . Check fasting lab with next PT/INR Continue current meds Discussed trial of PPI but states gaviscon works if will take so will just try it . Lab discussed Check testicular US Change namenda to Namenda XR 23mg QD Check PSA . Continue namenda 10mg po BID Discussed aricept . Continue current meds Lab discussed Long discussion about meds, diet, exercise and weight loss for decreasing TG and elevating HDL Add Nystatin/TAC cream to use prn . Check fasting lab--CMP, lipids, PSA, P T/INR Loan deferment paperwork filled out Medical Equipment No Medical Equipment data Health Concerns Section Health Concerns data not found Goals Section Goals data not found Interventions Section Interventions data not found Health Status Evaluations/Outcomes Section Health Status Evaluations/Outcomes data not found Advance Directives No Advance Directive data
--- OUTSIDE RECORDS SUMMARY | 2021-10-12 10:14 | XMS REPORT | CCD ---
Author Author Ronnie Lopez D.O. Organization [facility] Address [address] [place] [address] Phone Care Team Providers Care Project Structural Engineer Name Role Phone Roxie Lopez D.O., PP Unavailable CCM Unavailable Summary Purpose Interface Exchange Insurance Providers Payer name Policy type / Coverage type Covered constitution party ID Effective Begin Date Effective End Date [employer] Medicare [id number] Unknown Family History Family History data not found Social History Social History Element Codes Description Effective Dates Marital status Unknown 12/06/[address]: 1607402 Former smoker 2000 12/06/2011 Allergies, Adverse Reactions, [...] VACCINE ICD-10: Z23 ICD-9: V04.81 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 01 [...] 788.43 01/07/2019 Active Atherosclerotic heart disease of [place] coronary arter y without angina pectoris ICD-10: [...] Intensol 1 mg/mL Drops (concentrate) RxNorm: 3 65476 Take 5 Drop(s) Oral QD 10/05/2021 10/09/2021 Active Zithromax 200 mg/5 mL oral suspension RxNorm: 737511 Ta ke 12.5 Milliliter(s) Oral QD 10/05/2021 10/09/2021 Active albuterol sulfate HFA 90 mcg/actuation aerosol inhaler RxNor m: 0056776 Inhale 2 Puff(s) Inhalation Q4H as needed 10/05/2021 10/05/2021 Inactive albuterol sulfate HFA 90 mcg/actuation aerosol inhaler RxNor m: 2821789 Inhale 2 Puff(s) Inhalation Q4H as needed 10/05/2021 10/05/2021 Inactive memantine 10 mg tablet RxNorm: 958715 TAKE 1 TABLET TWI CE DAILY (REPLACES NAMENDA XR) 10/04/2021 04/01/2022 Active escitalopram 20 mg tablet RxNorm: 045419 TAKE 1 TABLET AT BEDTIME 1 12/05/2020 04/01/2022 Active warfarin 2 mg tablet RxNorm: 540910 TAKE 1 AND 1/2 TABL ETS ON SATURDAY, SATURDAY, SATURDAY, SATURDAY AND TAKE 2 TABLETS ON SATURDAY, SATURDAY AND Saturday08/23/2021 11/20/2021 Active tamsulosin 0.4 mg capsule RxNorm: 850565 TAKE 1 CAPSULE EVERY DAY 0 06/26/2021 09/23/2021 Inactive carbidopa 25 mg-levodopa 100 mg tablet RxNorm: 588108 T PHAM 1 TABLET TWICE DAILY FOR TREMORS 06/26/2021 07/04/2021 Inactive memantine 10 mg tablet RxNorm: 849355 TAKE 1 TABLET TWI CE DAILY (REPLACES NAMENDA XR) 06/26/2021 06/26/2021 Inactive escitalopram 20 mg tablet RxNorm: 669349 TAKE 1 TABLET AT BEDTIME 0 06/26/2021 06/26/2021 Inactive warfarin 2 mg tablet RxNorm: 860373 TAKE 1 AND 1/2 TABL ETS ON SATURDAY, SATURDAY, SATURDAY, SATURDAY AND TAKE 2 TABLETS ON SATURDAY, SATURDAY AND Saturday06/26/2021 06/26/2021 Inactive Sinemet 25 mg-100 mg tablet RxNorm: 292138 Take 1 Table t(s) Oral two times a day for tremors 04/26/2021 04/26/2021 Inactive memantine 10 mg tablet RxNorm: 806522 TAKE 1 TABLET TWI CE DAILY (REPLACES NAMENDA XR) 04/12/2021 04/12/2021 Inactive warfarin 2 mg tablet RxNorm: 456031 2 Tablet(s) Oral Mo through Saturday and 1.5 tablets on Saturday/Saturday01/19/2021 No Stop Date Active tamsulosin 0.4 mg capsule RxNorm: 451699 TAKE 1 CAPSULE EVERY DAY 0 12/19/2020 12/19/2020 Inactive warfarin 2 mg tablet RxNorm: 839792 TAKE 1 AND 1/2 TABL ETS ON SATURDAY, SATURDAY, SATURDAY, SATURDAY AND TAKE 2 TABLETS ON SATURDAY, SATURDAY AND Saturday12/12/2020 01/18/2021 Inactive escitalopram 20 mg tablet RxNorm: 636956 TAKE 1 TABLET AT BEDTIME 0 11/28/2020 11/28/2020 Inactive Namenda 10 mg tablet RxNorm: 655649 TAKE 1 TABLET TWICE DAILY (REPLACES NAMENDA XR) 10/17/2020 10/17/2020 Inactive melatonin 10 mg capsule RxNorm: 747262 1 Capsule(s) Oral QD 020 No Stop Date Active tamsulosin 0.4 mg capsule RxNorm: 976865 TAKE 1 CAPSULE EVERY DAY 1 12/18/2020 Inactive warfarin 2 mg tablet RxNorm: 238613 TAKE 1 AND 1/2 TABL ETS ON SATURDAY, SATURDAY, SATURDAY, SATURDAY AND TAKE 2 TABLETS ON SATURDAY, SATURDAY AND Saturday07/12/2020 12/11/2020 Inactive warfarin 2 mg tablet RxNorm: 951287 TAKE 1 AND 1/2 TABL ETS ON SATURDAY, SATURDAY, SATURDAY, SATURDAY AND TAKE 2 TABLETS ON SATURDAY, SATURDAY AND Saturday06/27/2020 07/11/2020 Inactive Namenda 10 mg tablet RxNorm: 502876 TAKE 1 TABLET TWICE DAILY (REPLACES NAMENDA XR) 04/18/2020 10/16/2020 Inactive tamsulosin 0.4 mg capsule RxNorm: 238850 1 Capsule(s) Oral QD 02/1108/10/2020 Inactive Depakote ER 250 mg tablet,extended release RxNorm: 7082707 1 Tab let(s) Oral QPM 01/21/2020 04/20/2020 Inactive warfarin 2 mg tablet RxNorm: 502144 TAKE 1 AND 1/2 TABL ETS ON SATURDAY, SATURDAY, SATURDAY AND SATURDAY AND TAKE 2 TABLETS ON SATURDAY, SATURDAY AND Saturday12/14/2019 06/26/2020 Inactive escitalopram 20 mg tablet RxNorm: 589788 TAKE 1 TABLET AT BEDTIME 0 11/16/2019 11/27/2020 Inactive Namenda 10 mg tablet RxNorm: 247075 TAKE 1 TABLET TWICE DAILY (REPLACES NAMENDA XR) 10/08/2019 04/17/2020 Inactive tamsulosin 0.4 mg capsule RxNorm: 778349 1 Capsule(s) Oral QD 09/0202/11/2020 Inactive warfarin 2 mg tablet RxNorm: 505444 1.5 Tablet(s) PO on , , Sat, and Sun and 2 tablets on Sat, Sat, Sat07/13/2019 07/12/2019 Inactive Depakote ER 250 mg tablet,extended release RxNorm: 1183933 1 Tab let(s) PO BID 06/08/2019 09/05/2019 Inactive pravastatin 80 mg tablet RxNorm: 292667 TAKE 1 TABLET EVERY DAY 11/201809/01/2019 Inactive warfarin 2 mg tablet RxNorm: 276709 TAKE 1 AND 1/2 TABS ON SATURDAY,SATURDAY AND SATURDAY AND TAKE 2 TABS ON , , SAT AND SUN (NEED MD APPOINTMENT) 03/09/2019 07/13/2019 Inactive Namenda 10 mg tablet RxNorm: 796845 TAKE 1 TABLET TWICE DAILY (REPLACES NAMENDA XR) 02/09/2019 08/07/2019 Inactive doxepin 25 mg capsule RxNorm: 4906439 1 Capsule(s) PO QH S for sleep replaces 10mg dose 02/09/2019 04/21/2019 Inactive escitalopram 20 mg tablet RxNorm: 005760 1 Tablet(s) PO QHS 019 08/07/2019 Inactive tamsulosin 0.4 mg capsule RxNorm: 117383 1 Capsule(s) P O QPM for urinary frequency 01/07/2019 02/12/2020 Inactive divalproex 250 mg tablet,delayed release RxNorm: 8546439 1 Table t(s) PO QHS 01/07/2019 01/07/2019 Inactive doxepin 10 mg capsule RxNorm: 0444837 1-2 Capsule(s) PO QHS as n eeded for sleep 01/07/2019 02/08/2019 Inactive warfarin 2 mg tablet RxNorm: 743023 1 1/2 Tablet(s) PO MWF and 2 tablets on Sat and Sun 12/29/2018 03/08/2019 Inactive metoprolol tartrate 50 mg tablet RxNorm: 256834 TAKE 1 TABLET T WICE DAILY 12/01/2018 06/30/2019 Inactive Namenda 10 mg tablet RxNorm: 853177 TAKE 1 TABLET TWICE DAILY (REPLACES NAMENDA XR) 09/22/2018 02/08/2019 Inactive warfarin 2 mg tablet RxNorm: 616875 1 1/2 Tablet(s) PO MWF and 2 tablets on T Th Sat and Sun 09/02/2018 09/01/2018 Inactive escitalopram 10 mg tablet RxNorm: 587236 1 Tablet(s) PO QHS 018 02/08/2019 Inactive pravastatin 80 mg tablet RxNorm: 606808 1 Tablet(s) PO QD 01/28/2018 10/24/2018 Inactive Namenda 10 mg tablet RxNorm: 558493 1 Tablet(s) PO BID 11/27/2017 Inactive escitalopram 10 mg tablet RxNorm: 435120 1 Tablet(s) PO QHS 018 06/09/2018 Inactive Namenda XR 28 mg capsule sprinkle,extended release RxNorm: 9 42360 TAKE ONE CAPSULE BY MOUTH ONCE DAILY 10/10/2017 11/26/2017 Inactive metoprolol tartrate 50 mg tablet RxNorm: 257474 Tablet( s) TAKE 1 TABLET TWICE DAILY 10/03/2017 09/27/2018 Inactive warfarin 2 mg tablet RxNorm: 690650 Tablet(s) TAKE 2 TA BLETS SATURDAY THROUGH SATURDAY AND 1 TABLET SATURDAY AND Saturday05/09/2017 09/02/2018 Inactive divalproex 250 mg tablet,delayed release RxNorm: 0044622 TAKE 1 TABLET TWICE DAILY 02/19/2017 01/06/2019 Inactive Namenda XR 28 mg capsule sprinkle,extended release RxNorm: 9 87955 TAKE 1 CAPSULE EVERY DAY 02/11/2017 10/09/2017 Inactive pravastatin 80 mg tablet RxNorm: 730129 1 Tablet(s) PO QD 01/21/2017 01/28/2018 Inactive Namenda XR 28 mg capsule sprinkle,extended release RxNorm: 9 03929 TAKE ONE CAPSULE BY MOUTH ONCE DAILY 09/24/2016 02/10/2017 Inactive metoprolol tartrate 50 mg tablet RxNorm: 240618 TAKE 1 TABLET T WICE DAILY 09/10/2016 10/03/2017 Inactive warfarin 2 mg tablet RxNorm: 626476 TAKE 2 TABLETS THROUGH SATURDAY AND 1 TABLET SATURDAY AND Saturday2016 05/09/2017 Inactive divalproex 250 mg tablet,delayed release RxNorm: 6374482 1 Table t(s) PO QHS 12/19/2015 12/12/2016 Inactive pravastatin 80 mg tablet RxNorm: 395695 1 Tablet(s) PO QD 12/19/2015 01/21/2017 Inactive Namenda XR 28 mg capsule sprinkle,extended release RxNorm: 9 44288 1 Capsule(s) PO QD 11/11/2015 09/23/2016 Inactive divalproex 250 mg tablet,delayed release RxNorm: 4435825 1 Table t(s) PO QHS 10/10/2015 12/19/2015 Inactive Namenda XR 28 mg capsule sprinkle,extended release RxNorm: 9 03671 1 Capsule(s) PO QD TAKE 1 CAPSULE EVERY DAY 11/09/2014 11/11/2015 Inactive Namenda XR 28 mg capsule sprinkle,ER 24hr RxNorm: 230779 1 PO QD TAKE ONE CAPSULE BY MOUTH ONCE DAILY 10/07/2014 11/09/2014 Inactive Namenda XR 28 mg capsule sprinkle,ER 24hr RxNorm: 868134 1 Caps ule(s) PO QD 11/10/2013 10/07/2014 Inactive metoprolol tartrate 50 mg tablet RxNorm: 212443 1 Tablet(s) PO BID 05/14/2013 05/08/2014 Inactive 1BID (REPLACES TOPROL) - [place] E ONE TABLET BY MOUTH TWICE DAILY (REPLACES TOPROL) Ativan 1 mg tablet RxNorm: 289969 1 Tablet(s) PO BID 05/01/201310/09 Inactive as needed for anxiety pravastatin 40 mg tablet RxNorm: 829326 1 Tablet(s) PO QD due for labs in late summer03/26/2013 11/10/2014 Inactive warfarin 2 mg tablet RxNorm: 789138 1 Tablet(s) PO Take 2 tablets by mouth Saturday through Saturday and 1 tablet on Saturday and Saturday10/07/2012 Inactive pravastatin 40 mg tablet RxNorm: 662489 1 Tablet(s) PO QD 08/13/2012 03/26/2013 Inactive metoprolol tartrate 50 mg tablet RxNorm: 563395 1 Tablet(s) PO BID 08/13/2012 05/14/2013 Inactive 1BID (REPLACES TOPROL) - [place] E ONE TABLET BY MOUTH TWICE DAILY (REPLACES TOPROL) warfarin 2 mg tablet RxNorm: 530293 1 Tablet(s) PO QD 08/13/201202/2012 Inactive warfarin 2 mg tablet RxNorm: 144497 Tablet(s) PO 11/07/2011 08/13/2012 Inactive 2QD - TAKE TWO TABLETS BY MOUTH EVERY DAY SATURDAY THROUGH SATURDAY AND 1 TABLET ON SATURDAY AND SATURDAY pravastatin 40 mg tablet RxNorm: 893598 1 Tablet(s) PO QD 10/15/2011 08/13/2012 Inactive Ativan 1 mg tablet RxNorm: 161466 1 Tablet(s) PO BID 10/01/201109/30 Active as needed for anxiety metoprolol tartrate 50 mg tablet RxNorm: 281990 1 Tablet(s) PO BID 08/27/2011 08/13/2012 Inactive 1BID (REPLACES TOPROL) - [place] E ONE TABLET BY MOUTH TWICE DAILY (REPLACES TOPROL) pravastatin 40 mg Tab RxNorm: 112886 1 Tablet(s) PO QD 07/10/201109/2011 Inactive Ativan 1 mg Tab RxNorm: 615804 1 Tablet(s) PO BID 07/02/2011 1 Active as needed for anxiety metoprolol tartrate 50 mg Tab RxNorm: 052442 1 Tablet(s ) PO BID 1BID (REPLACES TOPROL) - TAKE ONE TABLET BY MOUTH TWICE DAILY (REPLACES TOPROL) 03/12/2011 08/26/2011 Inactive Ativan 1 mg Tab RxNorm: 760900 1 Tablet(s) PO BID as needed for anxiety 02/26/2011 02/25/2011 Active warfarin 2 mg Tab RxNorm: 608793 Tablet(s) PO 2QD - T PHAM TWO TABLETS BY MOUTH EVERY DAY SATURDAY THROUGH SATURDAY AND 1 TABLET ON SATURDAY AND Saturday12/18/2010 11/07/2011 Inactive Ativan 1 mg Tab RxNorm: 911166 1 Tablet(s) PO BID PRN for anxiety 0 11/06/2010 01/06/2019 Inactive metoprolol tartrate 50 mg Tab RxNorm: 205041 1 Tablet(s ) PO BID 1BID (REPLACES TOPROL) - TAKE ONE TABLET BY MOUTH TWICE DAILY (REPLACES TOPROL) 09/11/2010 03/12/2011 Inactive Ativan 1 mg Tab RxNorm: 954575 1 Tablet(s) PO BID PRN for anxiety 1 11/06/2010 Inactive warfarin 2 mg Tab RxNorm: 041355 Tablet(s) PO 2QD - T PHAM TWO TABLETS BY MOUTH EVERY DAY SATURDAY THROUGH SATURDAY AND 1 TABLET ON SATURDAY AND Saturday07/24/2010 10/29/2010 Inactive metoprolol tartrate 50 mg Tab RxNorm: 227452 1 Tablet(s) PO QD 01/201009/11/2010 Inactive pravastatin 40 mg Tab RxNorm: 606162 1 Tablet(s) PO QD 06/06/201004/2011 Inactive Warfarin 2 mg Tab RxNorm: 861458 2 Tablet(s) PO QD 2 tablets by mouth Saturday through Saturday, and one tablet by mouth on Saturday and Saturday. 06/06/2010 07/23/2010 Inactive Ativan 1 mg Tab RxNorm: 714795 1 Tablet(s) PO QHS PRN for anxiety 0 06/06/2010 08/27/2010 Inactive Pravastatin 40 mg Tab RxNorm: 875552 1 Tablet(s) PO QD 04/14/201012/2009 Inactive Ativan 1 mg Tab RxNorm: 464360 1 Tablet(s) PO BID PRN for anxiety 0 02/23/2010 06/02/2010 Inactive Probiotic oral RxNorm: 6205 oral 04/07/2020 Active [place] 3 Natural Fish Oil Conc capsule RxNorm: 1 Capsule(s) PO QD 0 11/27/2017 Active turmeric-turmeric root extract oral RxNorm: 7730526 oral 11/27/19 18 Active magnesium oral RxNorm: 6574 oral 04/07/2020 Active Vitamin D3 5,000 unit tablet RxNorm: 967286 1 Tablet(s) PO QD 019 Active warfarin 2 mg tablet RxNorm: 615917 1 Tablet(s) PO QD 08/13/201207/2012 Inactive Ativan 1 mg Tab RxNorm: 577858 1 Tablet(s) PO BID as needed for anxiety 02/26/2011 02/25/2011 Inactive warfarin 2 mg Tab RxNorm: 943733 2 Tablet(s) PO QD saturday06/06/2012 06/05/2012 Inactive Tricor 145 mg Tab RxNorm: 245569 1 Tablet(s) PO QD 12/06/2011 012 Inactive warfarin 4 mg tablet RxNorm: 117119 Tablet(s) PO 11/27/2017 11/26/2017 Inactive warfarin 2 mg Tab RxNorm: 101533 1 Tablet(s) PO QD on saturday and saturday06/06/2012 06/05/2012 Inactive warfarin 2 mg tablet RxNorm: 143017 1.5 Tablet(s) PO on , , Sat, and Sun and 2 tablets on Sat, Sat, Sat07/13/2019 07/12/2019 Inactive pravastatin 80 mg tablet RxNorm: 301890 1 Tablet(s) PO QD 12/19/2015 12/19/2015 Inactive metoprolol tartrate 50 mg tablet RxNorm: 209313 1 Tablet(s) PO QD 1 09/01/2019 Inactive Warfarin 2 mg Tab RxNorm: 886261 Tablet(s) PO 2 table ts by mouth Saturday through Saturday, and one tablet by mouth on Saturday and Saturday. 06/06/201012/2009 Inactive Namenda 10 mg Tab RxNorm: 962145 2 Tablet(s) PO QD 07/02/2013 013 Inactive warfarin 2 mg tablet RxNorm: 855530 1 1/2 Tablet(s) PO MWF and 2 tablets on Sat and Sun 09/02/2018 09/01/2018 Inactive Ativan 1 mg Tab RxNorm: 047970 1 Tablet(s) PO BID PRN for anxiety 0 04/20/2010 04/19/2010 Inactive warfarin 2 mg Tab RxNorm: 300885 Tablet(s) PO take 2 tablets by mouth Sat-Sat and 1 tablet on Saturday and Saturday06/06/2012 06/05/2012 Inactive Depakote ER 250 mg tablet,extended release RxNorm: 0154795 1 Tab let(s) PO BID 11/27/2017 11/26/2017 Inactive warfarin 1 mg Tab RxNorm: 092290 1 Tablet(s) PO on Saturday and Saturday10/30/2010 [...] Code Result Date S ervice Location PT [id number] PT 24.4 Seconds 07/05/2021 Unknow n PT [id number] INR 2.2 07/05/2021 Unknown PT [id number] PT 25.2 Seconds 04/28/2021 Unknow n PT [id number] INR 2.3 04/28/2021 Unknown THYROID STIMULATING HORMONE 06278 TSH 2.271 uIU/mL 04/28/2021 Unknown COMPREHENSIVE METABOLIC 28617 AST 18 U/L 2020 Unknown COMPREHENSIVE METABOLIC 53270 ALT 9 U/L 2020 Unknown COMPREHENSIVE METABOLIC 94792 BUN 17 mg/dL 2020 Unknown COMPREHENSIVE METABOLIC 23116 ALBUMIN 3.8 g/dL 2020 Unknown COMPREHENSIVE METABOLIC 51613 CHLORIDE 108 mmol/L 04/28 Unknown COMPREHENSIVE METABOLIC 31691 Bili Total 0.7 mg/dL 04/28 Unknown COMPREHENSIVE METABOLIC 64297 ALK PHOS 76 U/L 2020 Unknown COMPREHENSIVE METABOLIC 00963 SODIUM 140 mmol/L 04/28 Unknown COMPREHENSIVE METABOLIC 07318 CREATININE 0.83 mg/dL 04/05 Unknown COMPREHENSIVE METABOLIC 69495 CALCIUM 9.5 mg/dL 2020 Unknown COMPREHENSIVE METABOLIC 73014 POTASSIUM 4.1 mmol/L 04/28 Unknown COMPREHENSIVE METABOLIC 21175 Total Protein 6.9 g/dL Unknown COMPREHENSIVE METABOLIC 82996 Glucose 106 mg/dL 2020 Unknown COMPREHENSIVE METABOLIC 43550 Bicarbonate 26 mmol/L 04/05 Unknown COMPREHENSIVE METABOLIC 04815 AGAP 6 mmol/L 2020 Unknown GFR CALC 3328746 GFR Non Afr Amr >60 mL/min 04/28/2021 Un known GFR CALC [id number] GFR Afr Amr >60 mL/min 04/28/2021 Unknow n COMPLETE BLOOD COUNT [id number] WBC 4.6 10e9/L 04/28/20 21 Unknown COMPLETE BLOOD COUNT [id number] RBC 4.39 10e12/L 2020 Unknown COMPLETE BLOOD COUNT [id number] HEMOGLOBIN 14.2 g/dL 04/28/20 21 Unknown COMPLETE BLOOD COUNT [id number] HEMATOCRIT 41.1 % 04/28/20 21 Unknown COMPLETE BLOOD COUNT [id number] MCV 93.6 fL 1 Unknown COMPLETE BLOOD COUNT [id number] MCH 32.3 pg 1 Unknown COMPLETE BLOOD COUNT [id number] MCHC 34.5 g/dL 1 Unknown COMPLETE BLOOD COUNT [id number] PLATELET COUNT 198 10e9/L Unknown COMPLETE BLOOD COUNT 9387710 Mean Plt Volume 9.3 fL Unknown COMPLETE BLOOD COUNT 9167962 Neut Auto 54.8 % 1 Unknown COMPLETE BLOOD COUNT 1990852 Lymph Auto 33.7 % 04/28/20 21 Unknown COMPLETE BLOOD COUNT 9854530 [place] Auto 9.6 % 1 Unknown COMPLETE BLOOD COUNT 8614887 RDW 12.2 % 1 Unknown COMPLETE BLOOD COUNT 3144682 Eos Auto 1.7 % 1 Unknown COMPLETE BLOOD COUNT 1878766 Baso Auto 0.2 % 1 Unknown COMPLETE BLOOD COUNT 7281791 Neutrophil Abs 2.52 10e9/L Unknown COMPLETE BLOOD COUNT [id number] Lymphocyte Abs 1.55 10e9/L Unknown COMPLETE BLOOD COUNT [id number] Monocyte Abs 0.44 10e9/L 04/05 Unknown COMPLETE BLOOD COUNT 8374732 Eosinophil Abs 0.08 10e9/L Unknown COMPLETE BLOOD COUNT [id number] RDW-SD 40.9 fL 1 Unknown COMPLETE BLOOD COUNT [id number] Basophil Abs 0.01 10e9/L 04/05 Unknown FREE T4 08281 T4 Free 0.81 ng/dL 04/28/2021 Unknown PT [id number] PT 19.8 Seconds 01/18/2021 Unknow n PT [id number] INR 1.6 01/18/2021 Unknown PT [id number] PT 18.7 Seconds 10/14/2020 Unknow n PT [id number] INR 1.5 10/14/2020 Unknown COMPREHENSIVE METABOLIC 10847 AST 17 U/L 2019 Unknown COMPREHENSIVE METABOLIC 92382 ALT 10 U/L 2019 Unknown COMPREHENSIVE METABOLIC 57893 BUN 19 mg/dL 2019 Unknown COMPREHENSIVE METABOLIC 71826 ALBUMIN 4.1 g/dL 2019 Unknown COMPREHENSIVE METABOLIC 77711 CHLORIDE 103 mmol/L 10/14 Unknown COMPREHENSIVE METABOLIC 55082 Bili Total 0.6 mg/dL 10/14 Unknown COMPREHENSIVE METABOLIC 60021 ALK PHOS 65 U/L 2019 Unknown COMPREHENSIVE METABOLIC 04455 SODIUM 141 mmol/L 10/14 Unknown COMPREHENSIVE METABOLIC 16332 CREATININE 0.77 mg/dL 10/04 Unknown COMPREHENSIVE METABOLIC 85760 CALCIUM 9.2 mg/dL 2019 Unknown COMPREHENSIVE METABOLIC 90177 POTASSIUM 4.2 mmol/L 10/14 Unknown COMPREHENSIVE METABOLIC 24942 Total Protein 6.7 g/dL Unknown COMPREHENSIVE METABOLIC 13781 Glucose 91 mg/dL 2019 Unknown COMPREHENSIVE METABOLIC 89611 Bicarbonate 28 mmol/L 10/04 Unknown COMPREHENSIVE METABOLIC 98205 AGAP 10 mmol/L 2019 Unknown FREE T4 55081 T4 Free 0.81 ng/dL 10/14/2020 Unknown HEMOGLOBIN A1C (GLYCOSYLATED) 6098799 Hgb A1c 87160-8 4.4 % 10/14/2020 Unknown HEMOGLOBIN A1C (GLYCOSYLATED) 5042107 Calc Mean Gluc 80 mg /dL 10/14/2020 Unknown COMPLETE BLOOD COUNT 9384065 WBC 5.4 10e9/L 10/14/20 20 Unknown COMPLETE BLOOD COUNT 8291769 RBC 4.40 10e12/L 2019 Unknown COMPLETE BLOOD COUNT 8873149 HEMOGLOBIN 14.4 g/dL 10/14/20 20 Unknown COMPLETE BLOOD COUNT [id number] HEMATOCRIT 42.4 % 10/14/20 20 Unknown COMPLETE BLOOD COUNT [id number] MCV 96.4 fL 0 Unknown COMPLETE BLOOD COUNT 1086973 MCH 32.7 pg 0 Unknown COMPLETE BLOOD COUNT [id number] MCHC 34.0 g/dL 0 Unknown COMPLETE BLOOD COUNT [id number] PLATELET COUNT 216 10e9/L 09/2020 Unknown COMPLETE BLOOD COUNT 7398983 Mean Plt Volume 9.5 fL 09/2020 Unknown COMPLETE BLOOD COUNT 9683796 Neut Auto 57.6 % 0 Unknown COMPLETE BLOOD COUNT 0474659 Lymph Auto 31.5 % 10/14/20 20 Unknown COMPLETE BLOOD COUNT [id number] [place] Auto 9.0 % 0 Unknown COMPLETE BLOOD COUNT [id number] RDW 12.4 % 0 Unknown COMPLETE BLOOD COUNT 5247613 Eos Auto 1.7 % 0 Unknown COMPLETE BLOOD COUNT 2624019 Baso Auto 0.2 % 0 Unknown COMPLETE BLOOD COUNT 4695646 Neutrophil Abs 3.11 10e9/L Unknown COMPLETE BLOOD COUNT 8876342 Lymphocyte Abs 1.70 10e9/L Unknown COMPLETE BLOOD COUNT 3765975 Monocyte Abs 0.49 10e9/L 10/04 Unknown COMPLETE BLOOD COUNT 7582494 Eosinophil Abs 0.09 10e9/L Unknown COMPLETE BLOOD COUNT 7499373 RDW-SD 42.4 fL 0 Unknown COMPLETE BLOOD COUNT [id number] Basophil Abs 0.01 10e9/L 10/04 Unknown THYROID STIMULATING HORMONE 12661 TSH 2.071 uIU/mL 10/14/2020 Unknown LIPID GROUP 24271 Cholesterol 217 mg/dL 10/14/2020 Unkno wn LIPID GROUP 54145 Triglyceride 108 mg/dL 10/14/2020 Unkn own LIPID GROUP 25719 HDL CHOLESTEROL 46 mg/dL 10/14/2020 U nknown LIPID GROUP 42430 Chol/HDL Ratio 4.72 ratio 10/14/2020 U nknown LIPID GROUP 49230 NON-HDL Chol 171 mg/dL 10/14/2020 Unkn own LIPID GROUP 54853 LDL Cholesterol 149 mg/dL 10/14/2020 U nknown GFR CALC 5961129 GFR Non Afr Amr >60 mL/min 10/14/2020 Un known GFR CALC 1649431 GFR Afr Amr >60 mL/min 10/14/2020 Unknow n COMPLETE BLOOD COUNT 4554595 WBC 7.6 10e9/L 04/06/20 20 Unknown COMPLETE BLOOD COUNT 9215205 RBC 3.90 10e12/L 2019 Unknown COMPLETE BLOOD COUNT 6701419 HEMOGLOBIN 12.0 g/dL 04/06/20 20 Unknown COMPLETE BLOOD COUNT 0499427 HEMATOCRIT 36.9 % 04/06/20 20 Unknown COMPLETE BLOOD COUNT 8996057 MCV 94.6 fL 0 Unknown COMPLETE BLOOD COUNT 7946907 MCH 30.8 pg 0 Unknown COMPLETE BLOOD COUNT 9784658 MCHC 32.5 g/dL 0 Unknown COMPLETE BLOOD COUNT 6802199 PLATELET COUNT 257 10e9/L 01/2020 Unknown COMPLETE BLOOD COUNT 7078283 Mean Plt Volume 8.6 fL 01/2020 Unknown COMPLETE BLOOD COUNT 5657585 Neut Auto 68.7 % 0 Unknown COMPLETE BLOOD COUNT 9496321 Lymph Auto 22.0 % 04/06/20 20 Unknown COMPLETE BLOOD COUNT 9261460 [place] Auto 8.3 % 0 Unknown COMPLETE BLOOD COUNT 8105260 RDW 12.7 % 0 Unknown COMPLETE BLOOD COUNT 0913114 Eos Auto 0.7 % 0 Unknown COMPLETE BLOOD COUNT [id number] Baso Auto 0.3 % 0 Unknown COMPLETE BLOOD COUNT 3899242 Neutrophil Abs 5.22 10e9/L Unknown COMPLETE BLOOD COUNT 9058829 Lymphocyte Abs 1.67 10e9/L Unknown COMPLETE BLOOD COUNT [id number] Monocyte Abs 0.63 10e9/L 01/2020 Unknown COMPLETE BLOOD COUNT [id number] Eosinophil Abs 0.05 10e9/L Unknown COMPLETE BLOOD COUNT 7767249 RDW-SD 42.6 fL 0 Unknown COMPLETE BLOOD COUNT [id number] Basophil Abs 0.02 10e9/L 01/2020 Unknown PT [id number] PT 19.3 Seconds 04/06/2020 Unknow n PT [id number] INR 1.6 04/06/2020 Unknown COMPREHENSIVE METABOLIC 35330 AST 12 U/L 2019 Unknown COMPREHENSIVE METABOLIC 20792 ALT 7 U/L 2019 Unknown COMPREHENSIVE METABOLIC 12053 BUN 19 mg/dL 2019 Unknown COMPREHENSIVE METABOLIC 71598 ALBUMIN 3.8 g/dL 2019 Unknown COMPREHENSIVE METABOLIC 96012 CHLORIDE 103 mmol/L 04/06 Unknown COMPREHENSIVE METABOLIC 08791 Bili Total 0.4 mg/dL 04/06 Unknown COMPREHENSIVE METABOLIC 26515 ALK PHOS 78 U/L 2019 Unknown COMPREHENSIVE METABOLIC 48631 SODIUM 141 mmol/L 04/06 Unknown COMPREHENSIVE METABOLIC 97424 CREATININE 0.90 mg/dL 01/2020 Unknown COMPREHENSIVE METABOLIC 10498 CALCIUM 9.0 mg/dL 2019 Unknown COMPREHENSIVE METABOLIC 29324 POTASSIUM 3.8 mmol/L 04/06 Unknown COMPREHENSIVE METABOLIC 66324 Total Protein 6.1 g/dL Unknown COMPREHENSIVE METABOLIC 40331 Glucose 125 mg/dL 2019 Unknown COMPREHENSIVE METABOLIC 87240 Bicarbonate 27 mmol/L 01/2020 Unknown COMPREHENSIVE METABOLIC 16657 AGAP 11 mmol/L 2019 Unknown GFR CALC 1363497 GFR Non Afr Amr >60 mL/min 04/06/2020 Un known GFR CALC [id number] GFR Afr Amr >60 mL/min 04/06/2020 Unknow n PT [id number] PT 25.2 Seconds 09/02/2019 Unknow n PT [id number] INR 2.2 09/02/2019 Unknown PT [id number] PT 26.5 Seconds 04/22/2019 Unknow n PT [id number] INR 2.3 04/22/2019 Unknown FERRITIN 26867 FERRITIN 240.3 ng/mL 04/22/2019 Unknown COMPLETE BLOOD COUNT 1941828 WBC 7.7 10e9/L 04/22/20 19 Unknown COMPLETE BLOOD COUNT [id number] RBC 4.19 10e12/L 2018 Unknown COMPLETE BLOOD COUNT 3363740 HEMOGLOBIN 13.5 g/dL 04/22/20 19 Unknown COMPLETE BLOOD COUNT [id number] HEMATOCRIT 39.6 % 04/22/20 19 Unknown COMPLETE BLOOD COUNT [id number] MCV 94.5 fL 9 Unknown COMPLETE BLOOD COUNT [id number] MCH 32.2 pg 9 Unknown COMPLETE BLOOD COUNT [id number] MCHC 34.1 g/dL 9 Unknown COMPLETE BLOOD COUNT [id number] PLATELET COUNT 235 10e9/L Unknown COMPLETE BLOOD COUNT [id number] Mean Plt Volume 9.8 fL Unknown COMPLETE BLOOD COUNT [id number] Neut Auto 68.5 % 9 Unknown COMPLETE BLOOD COUNT [id number] Lymph Auto 22.4 % 04/22/20 19 Unknown COMPLETE BLOOD COUNT [id number] [place] Auto 8.3 % 9 Unknown COMPLETE BLOOD COUNT [id number] RDW 12.4 % 9 Unknown COMPLETE BLOOD COUNT [id number] Eos Auto 0.5 % 9 Unknown COMPLETE BLOOD COUNT 5250836 Baso Auto 0.3 % 9 Unknown COMPLETE BLOOD COUNT [id number] Neutrophil Abs 5.27 10e9/L Unknown COMPLETE BLOOD COUNT [id number] Lymphocyte Abs 1.72 10e9/L Unknown COMPLETE BLOOD COUNT [id number] Monocyte Abs 0.64 10e9/L 04/04 Unknown COMPLETE BLOOD COUNT [id number] Eosinophil Abs 0.04 10e9/L Unknown COMPLETE BLOOD COUNT [id number] RDW-SD 41.6 fL 9 Unknown COMPLETE BLOOD COUNT [id number] Basophil Abs 0.02 10e9/L 04/04 Unknown IRON 43949 Iron 95 ug/dL 04/22/2019 Unknown GFR CALC [id number] GFR Non Afr Amr >60 mL/min 01/05/2019 Un known GFR CALC [id number] GFR Afr Amr >60 mL/min 01/05/2019 Unknow n COMPREHENSIVE METABOLIC 73226 AST 15 U/L 2018 Unknown COMPREHENSIVE METABOLIC 09049 ALT 11 U/L 2018 Unknown COMPREHENSIVE METABOLIC 42461 BUN 16 mg/dL 2018 Unknown COMPREHENSIVE METABOLIC 87514 ALBUMIN 3.9 g/dL 2018 Unknown COMPREHENSIVE METABOLIC 48248 CHLORIDE 106 mmol/L 01/05 Unknown COMPREHENSIVE METABOLIC 49645 Bili Total 0.7 mg/dL 01/05 Unknown COMPREHENSIVE METABOLIC 64873 ALK PHOS 50 U/L 2018 Unknown COMPREHENSIVE METABOLIC 57675 SODIUM 138 mmol/L 01/05 Unknown COMPREHENSIVE METABOLIC 02072 CREATININE 0.74 mg/dL 02/2019 Unknown COMPREHENSIVE METABOLIC 81384 CALCIUM 9.0 mg/dL 2018 Unknown COMPREHENSIVE METABOLIC 75460 POTASSIUM 4.3 mmol/L 01/05 Unknown COMPREHENSIVE METABOLIC 07637 Total Protein 6.4 g/dL Unknown COMPREHENSIVE METABOLIC 03502 Glucose 114 mg/dL 2018 Unknown COMPREHENSIVE METABOLIC 45974 Bicarbonate 26 mmol/L 02/2019 Unknown COMPREHENSIVE METABOLIC 05952 AGAP 6 mmol/L 2018 Unknown COMPLETE BLOOD COUNT [id number] WBC 5.5 10e9/L 01/06/20 19 Unknown COMPLETE BLOOD COUNT [id number] RBC 4.27 10e12/L 2018 Unknown COMPLETE BLOOD COUNT [id number] HEMOGLOBIN 14.0 g/dL 01/06/20 19 Unknown COMPLETE BLOOD COUNT [id number] HEMATOCRIT 40.6 % 01/06/20 19 Unknown COMPLETE BLOOD COUNT [id number] MCV 95.1 fL 9 Unknown COMPLETE BLOOD COUNT [id number] MCH 32.8 pg 9 Unknown COMPLETE BLOOD COUNT [id number] MCHC 34.5 g/dL 9 Unknown COMPLETE BLOOD COUNT [id number] PLATELET COUNT 211 10e9/L 02/2019 Unknown COMPLETE BLOOD COUNT [id number] Mean Plt Volume 9.8 fL 02/2019 Unknown COMPLETE BLOOD COUNT [id number] Neut Auto 64.7 % 9 Unknown COMPLETE BLOOD COUNT [id number] Lymph Auto 24.3 % 01/06/20 19 Unknown COMPLETE BLOOD COUNT [id number] [place] Auto 9.7 % 9 Unknown COMPLETE BLOOD COUNT [id number] RDW 12.2 % 9 Unknown COMPLETE BLOOD COUNT 8102465 Eos Auto 1.1 % 9 Unknown COMPLETE BLOOD COUNT [id number] Baso Auto 0.2 % 9 Unknown COMPLETE BLOOD COUNT [id number] Neutrophil Abs 3.56 10e9/L Unknown COMPLETE BLOOD COUNT [id number] Lymphocyte Abs 1.34 10e9/L Unknown COMPLETE BLOOD COUNT [id number] Monocyte Abs 0.53 10e9/L 02/2019 Unknown COMPLETE BLOOD COUNT [id number] Eosinophil Abs 0.06 10e9/L Unknown COMPLETE BLOOD COUNT [id number] RDW-SD 41.3 fL 9 Unknown COMPLETE BLOOD COUNT [id number] Basophil Abs 0.01 10e9/L 02/2019 Unknown LIPID GROUP 36993 Cholesterol 145 mg/dL 01/05/2019 Unkno wn LIPID GROUP 45528 Triglyceride 153 mg/dL 01/05/2019 Unkn own LIPID GROUP 37751 HDL CHOLESTEROL 39 mg/dL 01/05/2019 U nknown LIPID GROUP 21291 Chol/HDL Ratio 3.72 ratio 01/05/2019 U nknown LIPID GROUP 07105 NON-HDL Chol 106 mg/dL 01/05/2019 Unkn own LIP[facility] GROUP 74839 LDL Cholesterol 75 mg/dL 01/05/2019 U nknown PT [id number] PT 30.5 Seconds 12/15/2018 Unknow n PT [id number] INR 2.9 12/15/2018 Unknown PT [id number] PT 17.2 Seconds 09/08/2018 Unknow n PT [id number] INR 1.4 09/08/2018 Unknown LIPID GROUP 83290 Cholesterol 190 mg/dL 07/08/2018 Unkno wn L[facility] GROUP 11842 Triglyceride 402 mg/dL 07/08/2018 Unkn own L[facility] GROUP 15150 HDL CHOLESTEROL 36 mg/dL 07/08/2018 U nknown [facility] GROUP 25799 Chol/HDL Ratio 5.28 ratio 07/08/2018 U nknown LIP[facility] GROUP 78113 NON-HDL Chol 154 mg/dL 07/08/2018 Unkn own [facility] GROUP 12983 LDL Cholesterol N/A Trig >400 018 Unknown GFR CALC 6286238 GFR Non Afr Amr >60 mL/min 07/08/2018 Un known GFR CALC 4464781 GFR Afr Amr >60 mL/min 07/08/2018 Unknow n COMPLETE BLOOD COUNT [id number] WBC 5.0 10e9/L 07/08/20 18 Unknown COMPLETE BLOOD COUNT [id number] RBC 4.08 10e12/L 2017 Unknown COMPLETE BLOOD COUNT [id number] HEMOGLOBIN 13.3 g/dL 07/08/20 18 Unknown COMPLETE BLOOD COUNT [id number] HEMATOCRIT 38.6 % 07/08/20 18 Unknown COMPLETE BLOOD COUNT [id number] MCV 94.6 fL 8 Unknown COMPLETE BLOOD COUNT [id number] MCH 32.6 pg 8 Unknown COMPLETE BLOOD COUNT 5637164 MCHC 34.5 g/dL 8 Unknown COMPLETE BLOOD COUNT [id number] PLATELET COUNT 205 10e9/L 02/2018 Unknown COMPLETE BLOOD COUNT 0572012 Mean Plt Volume 9.8 fL 02/2018 Unknown COMPLETE BLOOD COUNT 3336232 Neut Auto 52.8 % 8 Unknown COMPLETE BLOOD COUNT 2589876 Lymph Auto 33.2 % 07/08/20 18 Unknown COMPLETE BLOOD COUNT 2359213 [place] Auto 11.6 % 8 Unknown COMPLETE BLOOD COUNT 0495813 RDW 12.5 % 8 Unknown COMPLETE BLOOD COUNT 0698818 Eos Auto 2.0 % 8 Unknown COMPLETE BLOOD COUNT 8359772 Baso Auto 0.4 % 8 Unknown COMPLETE BLOOD COUNT [id number] Neutrophil Abs 2.64 10e9/L Unknown COMPLETE BLOOD COUNT 3609831 Lymphocyte Abs 1.66 10e9/L Unknown COMPLETE BLOOD COUNT [id number] Monocyte Abs 0.58 10e9/L 02/2018 Unknown COMPLETE BLOOD COUNT [id number] Eosinophil Abs 0.10 10e9/L Unknown COMPLETE BLOOD COUNT 8559121 RDW-SD 41.8 fL 8 Unknown COMPLETE BLOOD COUNT [id number] Basophil Abs 0.02 10e9/L 02/2018 Unknown PT [id number] PT 32.9 Seconds 07/08/2018 Unknow n PT 6327761 INR 3.2 07/08/2018 Unknown PT 8955550 PT TNP:Duplicate Order 8 Unknown PT [id number] INR TNP:Duplicate Order 8 Unknown COMPREHENSIVE METABOLIC 40379 AST TNP:Duplicate Or grace 07/08/2018 Unknown COMPREHENSIVE METABOLIC 07053 ALT TNP:Duplicate Or grace 07/08/2018 Unknown COMPREHENSIVE METABOLIC 86082 BUN TNP:Duplicate Or grace 07/08/2018 Unknown COMPREHENSIVE METABOLIC 27474 ALBUMIN TNP:Duplicate Or grace 07/08/2018 Unknown COMPREHENSIVE METABOLIC 52274 CHLORIDE TNP:Duplicate Or grace 07/08/2018 Unknown COMPREHENSIVE METABOLIC 12419 Bili Total TNP:Duplicate O rder 07/08/2018 Unknown COMPREHENSIVE METABOLIC 28763 ALK PHOS TNP:Duplicate Or grace 07/08/2018 Unknown COMPREHENSIVE METABOLIC 67357 SODIUM TNP:Duplicate Or grace 07/08/2018 Unknown COMPREHENSIVE METABOLIC 44326 CREATININE TNP:Duplicate O rder 07/08/2018 Unknown COMPREHENSIVE METABOLIC 68035 CALCIUM TNP:Duplicate Or grace 07/08/2018 Unknown COMPREHENSIVE METABOLIC 65525 POTASSIUM TNP:Duplicate Or grace 07/08/2018 Unknown COMPREHENSIVE METABOLIC 03925 Total Protein TNP:Duplicat e Order 07/08/2018 Unknown COMPREHENSIVE METABOLIC 97265 Glucose TNP:Duplicate Or grace 07/08/2018 Unknown COMPREHENSIVE METABOLIC 48279 Bicarbonate TNP:Duplicate Order 07/08/2018 Unknown COMPREHENSIVE METABOLIC 49725 AGAP TNP:Duplicate Or grace 07/08/2018 Unknown COMPREHENSIVE METABOLIC 61666 AST 17 U/L 2017 Unknown COMPREHENSIVE METABOLIC 20113 ALT 12 U/L 2017 Unknown COMPREHENSIVE METABOLIC 14005 BUN 20 mg/dL 2017 Unknown COMPREHENSIVE METABOLIC 97322 ALBUMIN 4.0 g/dL 2017 Unknown COMPREHENSIVE METABOLIC 36536 CHLORIDE 107 mmol/L 07/08 Unknown COMPREHENSIVE METABOLIC 61054 Bili Total 0.3 mg/dL 07/08 Unknown COMPREHENSIVE METABOLIC 28813 ALK PHOS 58 U/L 2017 Unknown COMPREHENSIVE METABOLIC 09374 SODIUM 139 mmol/L 07/08 Unknown COMPREHENSIVE METABOLIC 39702 CREATININE 0.72 mg/dL 02/2018 Unknown COMPREHENSIVE METABOLIC 51416 CALCIUM 7.8 mg/dL 2017 Unknown COMPREHENSIVE METABOLIC 25284 POTASSIUM 4.1 mmol/L 07/08 Unknown COMPREHENSIVE METABOLIC 75558 Total Protein 6.2 g/dL Unknown COMPREHENSIVE METABOLIC 13091 Glucose 107 mg/dL 2017 Unknown COMPREHENSIVE METABOLIC 19655 Bicarbonate 22 mmol/L 02/2018 Unknown COMPREHENSIVE METABOLIC 48697 AGAP 10 mmol/L 2017 Unknown GFR CALC 1137926 GFR Non Afr Amr >60 mL/min 11/28/2017 Un known GFR CALC 9295740 GFR Afr Amr >60 mL/min 11/28/2017 Unknow n THYROID STIMULATING HORMONE 17426 TSH 4.029 uIU/mL 11/28/2017 Unknown LIPID GROUP 24592 Cholesterol 181 mg/dL 11/28/2017 Unkno wn LIPID GROUP 22343 Triglyceride 193 mg/dL 11/28/2017 Unkn own LIPID GROUP 82642 HDL CHOLESTEROL 36 11/28/2017 U nknown LIPID GROUP 12649 Chol/HDL Ratio 5.03 ratio 11/28/2017 U nknown LIPID GROUP 60703 NON-HDL Chol 145 mg/dL 11/28/2017 Unkn own LIPID GROUP 27811 LDL Cholesterol 106 mg/dL 11/28/2017 U nknown PT 8063022 PT 22.2 Seconds 11/28/2017 Unknow n PT 8083728 INR 2.0 11/28/2017 Unknown COMPREHENSIVE METABOLIC 36552 AST 19 U/L 2017 Unknown COMPREHENSIVE METABOLIC 55761 ALT 16 U/L 2017 Unknown COMPREHENSIVE METABOLIC 84534 BUN 22 mg/dL 2017 Unknown COMPREHENSIVE METABOLIC 73927 ALBUMIN 4.1 g/dL 2017 Unknown COMPREHENSIVE METABOLIC 69077 CHLORIDE 108 mmol/L 11/28 Unknown COMPREHENSIVE METABOLIC 15860 Bili Total 0.5 mg/dL 11/28 Unknown COMPREHENSIVE METABOLIC 58585 ALK PHOS 53 U/L 2017 Unknown COMPREHENSIVE METABOLIC 93865 SODIUM 141 mmol/L 11/28 Unknown COMPREHENSIVE METABOLIC 17816 CREATININE 0.83 mg/dL 11/05 Unknown COMPREHENSIVE METABOLIC 39393 CALCIUM 9.1 mg/dL 2017 Unknown COMPREHENSIVE METABOLIC 09509 POTASSIUM 4.6 mmol/L 11/28 Unknown COMPREHENSIVE METABOLIC 89626 Total Protein 6.5 g/dL Unknown COMPREHENSIVE METABOLIC 34361 Glucose 106 mg/dL 2017 Unknown COMPREHENSIVE METABOLIC 35077 Bicarbonate 26 mmol/L 11/05 Unknown COMPREHENSIVE METABOLIC 80275 AGAP 7 mmol/L 2017 Unknown COMPLETE BLOOD COUNT 9560441 WBC 5.1 10e9/L 11/28/19 18 Unknown COMPLETE BLOOD COUNT 6684583 RBC 4.22 10e12/L 2017 Unknown COMPLETE BLOOD COUNT 4349373 HEMOGLOBIN 13.5 g/dL 11/28/19 18 Unknown COMPLETE BLOOD COUNT 0298347 HEMATOCRIT 39.1 % 11/28/19 18 Unknown COMPLETE BLOOD COUNT 7998398 MCV 92.7 fL 8 Unknown COMPLETE BLOOD COUNT 8284448 MCH 32.0 pg 8 Unknown COMPLETE BLOOD COUNT 1779733 MCHC 34.5 g/dL 8 Unknown COMPLETE BLOOD COUNT 2280187 PLATELET COUNT 226 10e9/L Unknown COMPLETE BLOOD COUNT 1023879 Mean Plt Volume 9.6 fL Unknown COMPLETE BLOOD COUNT 1656506 Neut Auto 49.5 % 8 Unknown COMPLETE BLOOD COUNT 1167612 Lymph Auto 35.3 % 11/28/19 18 Unknown COMPLETE BLOOD COUNT 1642586 [place] Auto 12.4 % 8 Unknown COMPLETE BLOOD COUNT 5931873 RDW 12.4 % 8 Unknown COMPLETE BLOOD COUNT 6282623 Eos Auto 2.2 % 8 Unknown COMPLETE BLOOD COUNT 7814076 Baso Auto 0.6 % 8 Unknown COMPLETE BLOOD COUNT 7225035 Neutrophil Abs 2.52 10e9/L Unknown COMPLETE BLOOD COUNT 4544612 Lymphocyte Abs 1.80 10e9/L Unknown COMPLETE BLOOD COUNT [id number] Monocyte Abs 0.63 10e9/L 11/05 Unknown COMPLETE BLOOD COUNT 3506029 Eosinophil Abs 0.11 10e9/L Unknown COMPLETE BLOOD COUNT 6510452 RDW-SD 41.2 fL 8 Unknown COMPLETE BLOOD COUNT [id number] Basophil Abs 0.03 10e9/L 11/05 Unknown Procedures Procedure Codes Date SARSCOV & INF VIR A&B AG IA CPT-4: 60511 10/04/2021 FLU VACC PRSV FREE INC ANTIG 65 AND OLDER CPT-4: 46285 08/18/2021 FLU VACC PRSV FREE INC ANTIG 65 AND OLDER CPT-4: 55055 08/18/2021 ADMIN INFLUENZA VIRUS VAC CPT-4: G0008 08/18/2021 ROUTINE VENIPUNCTURE CPT-4: 22145 07/05/2021 PROTHROMBIN TIME CPT-4: 63160 07/05/2021 PPPS, subseq visit CPT-4: G0439 10/12/2020 ROUTINE VENIPUNCTURE CPT-4: 79898 04/06/2020 COMPREHEN METABOLIC PANEL CPT-4: 68180 04/06/2020 COMPLETE CBC W/AUTO DIFF WBC CPT-4: 29470 04/06/2020 PROTHROMBIN TIME CPT-4: 07592 04/06/2020 PPPS, subseq visit CPT-4: G0439 09/02/2019 ROUTINE VENIPUNCTURE CPT-4: 11580 09/02/2019 PROTHROMBIN TIME CPT-4: 45332 09/02/2019 FLU VACC PRSV FREE INC ANTIG 65 AND OLDER CPT-4: 21319 08/20/2018 PNEUMOCOCCAL VACC 23 BRIDGET IM CPT-4: 25121 08/20/2018 ADMIN INFLUENZA VIRUS VAC CPT-4: G0008 08/20/2018 ADMIN PNEUMOCOCCAL VACCINE CPT-4: G0009 08/20/2018 PPPS, subseq visit CPT-4: G0439 11/27/2017 FLU VACC PRSV FREE INC ANTIG 65 AND OLDER CPT-4: 71458 08/14/2017 PNEUMOCOCCAL VACC 13 BRIDGET IM CPT-4: 48803 08/14/2017 ADMIN INFLUENZA VIRUS VAC CPT-4: G0008 08/14/2017 ADMIN PNEUMOCOCCAL VACCINE CPT-4: G0009 08/14/2017 FLU VACC PRSV FREE INC ANTIG 65 AND OLDER CPT-4: 79882 10/03/2016 ADMIN INFLUENZA VIRUS VAC CPT-4: G0008 10/03/2016 PPPS, subseq visit CPT-4: G0439 10/10/2015 FLUZONE, 5ML (Medicare) CPT-4: Q2038 09/01/2014 ADMIN INFLUENZA VIRUS VAC CPT-4: G0008 09/01/2014 Vital Signs Date Vital 07/05/2021 Blood Pressure 1: 122/80 Code: 8480-6 Heart Rate 1: 92 bpm Respiratory Rate: 20 bpm SpO2: 96% Temperature: 36.8 (C) / 98.2 (F) We ight: 207 lbs Code: 43995-8 04/26/2021 Blood Pressure 1: 126/82 Code: 8480-6 Heart Rate 1: 104 bpm Respiratory Rate: 20 bpm SpO2: 96% Temperature: 36.7 (C) / 98.1 (F) We ight: 212 lbs Code: 14510-7 10/12/2020 Blood Pressure 1: 104/68 Code: 8480-6 BMI: 31.6 Code: 97819-5 Heart Rate 1: 96 bpm Height: 5'7" Code: 8302-2 Respiratory Rate: 20 bpm SpO2: 95% Temperature: 36.9 (C) / 98.5 (F) Weight: 202 lbs Code: 44948-2 07/13/2020 Blood Pressure 1: 128/72 Code: 8480-6 Heart Rate 1: 76 bpm Respiratory Rate: 18 bpm SpO2: 97% Temperature: 36.3 (C) / 97.3 (F) We ight: 190 lbs Code: 14676-2 04/06/2020 Blood Pressure 1: 106/68 Code: 8480-6 BMI: 29.1 Code: 49450-6 Heart Rate 1: 96 bpm Height: 5'7" Code: 8302-2 Respiratory Rate: 20 bpm SpO2: 96% Temperature: 36.8 (C) / 98.2 (F) Weight: 186 lbs Code: 07213-0 09/02/2019 Blood Pressure 1: 94/50 Code: 8480-6 BMI: 29.8 C ode: 93029-5 Heart Rate 1: 68 bpm Height: 5'7" Code: 8302-2 Respiratory Rate: 20 bpm SpO2: 96% Temperature: 36.6 (C) / 97.9 (F) Weight: 190 lbs Code: 08544-8 07/01/2019 Blood Pressure 1: 112/60 Code: 8480-6 Heart Rate 1: 88 bpm Respiratory Rate: 20 bpm SpO2: 94% Temperature: 36.8 (C) / 98.2 (F) We ight: 201 lbs Code: 41480-4 05/27/2019 Blood Pressure 1: 104/50 Code: 8480-6 Heart Rate 1: 62 bpm SpO2: 95% Temperature: 36.3 (C) / 97.4 (F) Weight: 204 lbs Code: 83292-8 04/22/2019 Blood Pressure 1: 112/72 Code: 8480-6 Heart Rate 1: 64 bpm Respiratory Rate: 20 bpm SpO2: 95% Temperature: 36.8 (C) / 98.2 (F) We ight: 207 lbs Code: 81339-8 02/09/2019 Blood Pressure 1: 104/60 Code: 8480-6 Heart Rate 1: 72 bpm Respiratory Rate: 20 bpm SpO2: 95% Temperature: 37.1 (C) / 98.8 (F) We ight: 216 lbs Code: 44711-5 01/07/2019 Blood Pressure 1: 122/74 Code: 8480-6 Heart Rate 1: 96 bpm Respiratory Rate: 20 bpm SpO2: 96% Temperature: 36.7 (C) / 98.1 (F) We ight: 219 lbs Code: 90945-0 07/09/2018 Blood Pressure 1: 118/65 Code: 8480-6 Heart Rate 1: 62 bpm SpO2: 94% Temperature: 36.2 (C) / 97.1 (F) Weight: 237 lbs Code: 46208-5 11/27/2017 Blood Pressure 1: 124/70 Code: 8480-6 BMI: 35.2 Code: 63364-1 Heart Rate 1: 64 bpm Height: 5'8" Code: 8302-2 Respiratory Rate: 20 bpm SpO2: 94% Temperature: 36.9 (C) / 98.5 (F) Weight: 235 lbs Code: 02490-2 10/10/2015 Blood Pressure 1: 126/78 Code: 8480-6 BMI: 36.0 Code: 55425-1 Heart Rate 1: 72 bpm Height: 5'8" Code: 8302-2 Respiratory Rate: 20 bpm Temperatu re: 36.9 (C) / 98.4 (F) Weight: 240 lbs Code: 75178-1 09/01/2014 Blood Pressure 1: 114/70 Code: 8480-6 BMI: 35.4 Code: 02491-5 Heart Rate 1: 76 bpm Height: 5'8" Code: 8302-2 Respiratory Rate: 20 bpm Temperatu re: 36.7 (C) / 98.1 (F) Weight: 236 lbs Code: 40040-6 07/02/2013 Blood Pressure 1: 124/90 Code: 8480-6 BMI: 33.7 Code: 32990-6 Heart Rate 1: 76 bpm Height: 5'8" Code: 8302-2 Respiratory Rate: 20 bpm Temperatu re: 36.6 (C) / 97.8 (F) Weight: 225 lbs Code: 70925-0 06/25/2012 Blood Pressure 1: 144/100 Code: 8480-6 BMI: 34.5 Code: 24557-5 Heart Rate 1: 76 bpm Height: 5'8" Code: 8302-2 Respiratory Rate: 20 bpm Temperatu re: 36.6 (C) / 97.9 (F) Weight: 230 lbs Code: 35784-0 05/15/2012 Blood Pressure 1: 112/70 Code: 8480-6 BMI: 34.6 Code: 62264-6 Heart Rate 1: 76 bpm Height: 5'8" Code: 8302-2 Respiratory Rate: 20 bpm Temperatu re: 37.0 (C) / 98.6 (F) Weight: 231 lbs Code: 86687-0 12/06/2011 Blood Pressure 1: 142/90 Code: 8480-6 BMI: 35.4 Code: 01288-7 Heart Rate 1: 72 bpm Height: 5'8" Code: 8302-2 Respiratory Rate: 20 bpm Temperatu re: 36.9 (C) / 98.4 (F) Weight: 236 lbs Code: 26006-0 10/30/2010 Blood Pressure 1: 114/78 Code: 8480-6 Heart Rate 1: 76 bpm Temperature: 36.3 (C) / 97.4 (F) Weight: 228 lbs Code: 91073-5 Functional Status No Functional Status data Reason [...] F02.80] Diagnosis: Alzheimer's dementia[ICD10: G30.9] Roxie Lopez [facility] CPT-4: 51484 10/05/2021 ([id number]) NURSE/OUTPATIENT VISIT EST Diagnosis: Cough[ICD10: R05.9] Diagnosis: Exposure to COVID-19 virus[ICD10: Z20.822] Roxie LOPEZ DO [facility] CPT-4: 62341 10/04/2021 ([id number]) NURSE/OUTPATIENT VISIT EST Diagnosis: FLU VACCINE[ICD10: Z23] Roxie MOSQUERA DO [facility] CPT-4: 02317 08/18/2021 ([id number]) OFFICE/OUTPATIENT VISIT EST Diagnosis: Parkinson disease[ICD10: G20] 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] Roxie LOPEZ DO [facility] CPT-4: 52191 07/05/2021 ([id number]) OFFICE/OUTPATIENT VISIT EST Diagnosis: Parkinson disease[ICD10: G20] Diagnosis: Dementia[ICD10: F03.90] Roxie MOSQUERA [employer] [facility] CPT-4: 41353 04/26/2021 ([id number]) OFFICE/OUTPATIENT VISIT EST Diagnosis: 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] Diagnosis: 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: G30.9] Roxie LOPEZ DO [facility] CPT-4: 37700 07/13/2020 ([id number]) OFFICE/OUTPATIENT VISIT EST Diagnosis: Alzheimer's disease, unspecified[ICD10: G30.9] Roxie LOPEZ DO [facility] CPT-4: 61988 04/06/2020 ([id number]) OFFICE/OUTPATIENT VISIT EST Diagnosis: Alzheimer's disease with late onset[ICD10: G30.1] Diagnosis: Generalized anxiety disorder[ICD10: F41.1] Diagnosis: Unspecified dementia with behavioral disturbance[ICD10: F03.91] Roxie LOPEZ DO [facility] CPT-4: 73992 07/01/2019 ([id number]) OFFICE/OUTPATIENT VISIT EST Diagnosis: Alzheimer's disease with late onset[ICD10: G30.1] Diagnosis: Abnormal weight loss[ICD10: R63.4] Diagnosis: Essential (primary) hypertension[ICD10: I10] Diagnosis: Melena[ICD10: K92.1] Diagnosis: Unspecified dementia with behavioral disturbance[ICD10: F03.91] Diagnosis: Spontaneous ecchymoses[ICD10: R23.3] Roxie ROCHE RmDiane BRAYDON [employer] [facility] CPT-4: 86192 05/27/2019 ([id number]) OFFICE/OUTPATIENT VISIT EST Diagnosis: 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] Diagnosis: Alzheimer's disease with late onset[ICD10: G30.1] Diagnosis: Melena[ICD10: K92.1] Diagnosis: Abnormal weight loss[ICD10: R63.4] Roxie VENEGAS RmDiane JULIO [employer] [facility] CPT-4: 76161 04/22/2019 ([id number]) OFFICE/OUTPATIENT VISIT EST Diagnosis: 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] Diagnosis: Slow transit constipation[ICD10: K59.01] Diagnosis: Unspecified dementia with behavioral disturbance[ICD10: F03.91] Roxie FAUSTIN RmDiane BRAYDON [employer] [facility] CPT-4: 29771 02/09/2019 ([id number]) OFFICE/OUTPATIENT VISIT EST Diagnosis: Alzheimer's disease with late onset[ICD10: G30.1] Diagnosis: 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] Diagnosis: Nocturia[ICD10: R35.1] Diagnosis: Constipation, unspecified[ICD10: K59.00] Roxie FAUSTIN RmDiane JULIO [employer] [facility] CPT-4: 10215 01/07/2019 ([id number]) NURSE/OUTPATIENT VISIT EST Diagnosis: FLU VACCINE[ICD10: Z23] Diagnosis: PNEUMOCOCCAL VACCINE[ICD10: Z23] Roxie FAUSTIN RmDiane JULIO [employer] [facility] CPT-4: 30686 08/20/2018 ([id number]) OFFICE/OUTPATIENT VISIT EST Diagnosis: Mixed hyperlipidemia[ICD10: E78.2] Diagnosis: Essential (primary) hypertension[ICD10: I10] Diagnosis: Alzheimer's disease, unspecified[ICD10: G30.9] Roxie LOPEZ [facility] CPT-4: 54681 07/09/2018 ([id number]) OFFICE/OUTPATIENT VISIT EST Diagnosis: PNEUMOCOCCAL VACCINE[ICD10: Z23] Diagnosis: FLU VACCINE[ICD10: Z23] Roxie BRYSON [facility] CPT-4: 49705 08/14/2017 ([id number]) OFFICE/OUTPATIENT VISIT EST Diagnosis: FLU VACCINE[ICD10: Z23] Roxie BRYSON [facility] CPT-4: 66126 10/03/2016 ([id number]) OFFICE/OUTPATIENT VISIT EST Diagnosis: HYPERTENSION[ICD9: 401.9] Diagnosis: HYPERLIPIDEMIA NEC/NOS[ICD9: 272.4] Diagnosis: MEMORY LOSS[ICD9: 780.93] Diagnosis: - I - ANXIETY STATE NOS[ICD9: 300.00] Diagnosis: FLU VACCINE[ICD10: Z23] Roxie BRYSON [facility] CPT-4: 00142 09/01/2014 OFFICE/OUTPATIENT VISIT EST Diagnosis: HYPERTENSION[ICD9: 401.9] Diagnosis: CAD[ICD9: 414.00] Diagnosis: HYPERLIPIDEMIA NEC/NOS[ICD9: 272.4] Diagnosis: MEMORY LOSS[ICD9: 780.93] Diagnosis: ANXIETY STATE NOS[ICD9: 300.00] Diagnosis: Testicular pain[ICD9: 608.9] Roxie LOPEZ [facility] CPT-4: 66088 07/02/2013 ([id number]) OFFICE/OUTPATIENT VISIT EST Diagnosis: MEMORY LOSS[ICD9: 780.93] Roxie THOMPSON BANNERR [facility] CPT-4: 62523 06/25/2012 ([id number]) OFFICE/OUTPATIENT VISIT EST Diagnosis: HYPERLIPIDEMIA NEC/NOS[ICD9: 272.4] Diagnosis: HYPERTENSION[ICD9: 401.9] Diagnosis: CAD[ICD9: 414.00] Diagnosis: MEMORY LOSS[ICD9: 780.93] Roxie THOMPSON NDER [facility] CPT-4: 83986 05/15/2012 PER PM REEVAL EST PAT 65+ YR Diagnosis: ROUTINE MEDICAL EXAM[ICD9: V70.0] Diagnosis: HYPERLIPIDEMIA NEC/NOS[ICD9: 272.4] Diagnosis: HYPERTENSION[ICD9: 401.9] Diagnosis: CAD[ICD9: 414.00] Diagnosis: Seborrheic dermatitis[ICD9: 690.10] Roxie PERRY Krish LOPEZ [employer] CPT-4: 14705 12/06/2011 ([id number]) OFFICE/OUTPATIENT VISIT, EST Roxie GENTILE RmDiane JULIO [employer] CPT-4: 22311 10/30/2010 Plan of Care Planned Activity Notes Codes Status Date Visit Diagnosis Plan: COVID-19 Discussion: Telemed dox y.nc video visit done with COVID positive and [...] F02.80 10/05/2021 App[facility]ment[facility] [phone] [id number] [facility] 10/04/2021 App[facility]ment[facility] [phone] [id number] [facility] 08/18/2021 Visit Diagnosis Plan: Parkinson disease Discussion: In crease sinemet 25/100mg 2po BID Call in 1month ICD-9 : 332.0 ICD-10 : G20 07/05/2021 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 Discussion: PT/INR drawn ICD-9 : V58.61 ICD-10 : Z79.01 07/05/2021 Appointment: Roxie Lopeztel: [address] [place] [address] US FOLLOW UP 07/05/2021 Visit Diagnosis Plan: Parkinson disease Discussion: Tr ial of sinemet 25/100mg po BID Fwup 2mos ICD-9 : 332.0 ICD-10 : G20 04/26/2021 Appointment: Roxie Lopez WPtel: [address] [place], [place] [phone] US FOLLOW UP 04/26/2021 Appointment: Roxie Lopez WPtel: [address] [place] [address] US CANCELED 01/11/2021 Visit Diagnosis Plan: Encounter for [facility] adult medical examination without abnormal findings Discussion: [...] ICD-10 : G30.1 10/12/2020 Visit Diagnosis Plan: jail (current) use of antic oagulants Discussion: Update PT/INR ICD-9 : V58.61 ICD-10 : Z79.01 10/12/2020 Appointment: Roxie Lopez WPtel: [address] [place], [place] [phone] [place] Annual Well Visit 10/12/2020 Visit Diagnosis [...] : F02.81 07/13/2020 Appointment: Roxie Lopez WPtel: [address] [place], [place] [phone] [place] FOLLOW UP 07/13/2020 Care Plan: PT Pending 06/27/2020 Visit Diagnosis Plan: Alzheimer's disease, unspecified Discussion: Worsening has started OTC supplements Inquiring about meals on wheels Follow Up: 3 months ICD-9 : 331.0 ICD-10 : G30.9 04/06/2020 Appointment: Roxie Lopez WPtel: [address] [place], [place] [phone] [place] FOLLOW UP 04/06/2020 Care Plan: Referral Order SNOMED-CT : [id number] Pending 04/06/2020 Appointment: Roxie Lopez WPtel: [address] [place], [place] [phone] [place] RESCHEDULED 02/24/2020 Care Plan: COMPREH[place]AB[place] : 49165-2 Pending 12/14/2019 Care Plan: LIPID PANEL LOINC : 02472-6 Pending 12/14/2019 Care Plan: PT Pending 12/14/2019 [...] : Z51.81 09/02/2019 Appointment: Roxie Lopez WPtel: [address] [place], [place] [phone] [place] originally 2 mo follow up Annual Well Visit 08/06 Visit Diagnosis Plan: Generalized anxiety disorder Dis cussion: Depakote already helping Follow Up: 2 months ICD-9 : 300.00 ICD-10 : F41.1 07/01/2019 Appointment: Roxie Lopez WPtel: [address] [place], [place] [phone] [place] FOLLOW UP 07/01/2019 Visit Diagnosis Plan: [...] : K92.1 05/27/2019 Appointment: Roxie Lopez WPtel: [address] [place], [place] [phone] [place] FOLLOW UP 05/27/2019 Visit Diagnosis Plan: [...] : F51.04 04/22/2019 Appointment: Roxie Lopez WPtel: [address] [place], [place] [phone] [place] FOLLOW UP 04/22/2019 Visit Diagnosis Plan: [...] K59.01 02/09/2019 Appointment: Roxie Lopez WPtel: [phone] [id number] FOLLOW UP 02/09/2019 Patient Education: escitalopram oxalate- [employer] C[employer] [id number] Completed 02/09/2019 Patient Education: doxepin- [employer] [id number] Completed 02/09/2019 Visit Diagnosis Plan: Nocturia Discussion: [...] F51.04 01/07/2019 [facility] [phone] [id number] [place] FO[facility] 01/07/2019 Patient Education: tamsulosin- [employer]on [id number] Completed 01/07/2019 Patient Education: doxepin- [employer] [id number] Completed 01/07/2019 Care Plan: COMPRE[place]AB[place] : 21087-7 Pending 12/17/2018 Care Plan: CBC Pending 12/17/2018 Care Plan: LIPID PANEL LOINC : 79686-5 Pending 12/17/2018 Appointment: Roxie Lopez WPtel: [address] [place], [place] [phone] [place] INJECTION 08/20/2018 Patient Education: Patient Medication [...] : I10 07/09/2018 Appointment: Roxie Lopez WPtel: [address] [place] [address] FOLLOW UP 07/09/2018 Patient Education: Patient Medication Summary Completed 07/09/2018 Visit Diagnosis Plan: Generalized anxiety disorder Dis cussion: Add lexapro 10mg q HS ICD-9 : 300.00 ICD-10 : F41.1 11/27/2017 Visit Diagnosis Plan: Alzheimer's disease, unspecified Discussion: Change Namenda XR to Namenda 10mg po BI Follow Up: 3 months ICD-9 : 331.0 ICD-10 : G30.9 11/27/2017 Visit Diagnosis Plan: Encounter for [facility] adult medical examination without abnormal findings Discussion: Update fasting lab ICD-9 : V70.0 ICD-10 : Z00.00 11/27/2017 Appointment: Roxie Lopez WPtel: [facility] [address] Annual Well Visit 11/27/2017 Patient Education: Patient Medication Summary Completed 11/27/2017 Patient Education: Patient Medication Summary Completed 11/14/2017 Care Plan: CBC Pending 11/14/2017 Care Plan: PT Pending 11/14/2017 Care Plan: COMPREHEN METABOLIC PANEL [place] : [id number] Pending 11/14/2017 Care Plan: LIPID PANEL LOINC : [id number] Pending 11/14/2017 Care Plan: ASSAY THYROID STIM HORMONE Pen ding 11/14/2017 Appointment: Roxie Lopez WPtel: [address] [place], [place] [phone] [place] INJECTION 08/14/2017 Patient Education: Patient Medication Summary Completed 08/14/2017 Appointment: Roxie Lopez WPtel: [address] [place], [place] [phone] [place] INJECTION 10/03/2016 Patient Education: Patient Medication Summary Completed 10/03/2016 Patient Education: Patient Medication Summary Completed 01/02/2016 Care Plan: CBC Ordered 01/02/2016 Visit Plan: Check fasting lab with next PT/INR Continue current meds Discussed trial of PPI but states gaviscon works if will take so will just try it 10/10/2015 Appointment: Roxie Lopez WPtel: [address] [place] [address] 10/07/15 appt confirmed cn Annual Well Visit 05/2015 Patient Education: Patient Medication Summary Completed 10/10/2015 Appointment: Roxie Lopez WPtel: [address] [place], [place] [phone] 08/31 no answer cell # 08/31 vm 2nd # FOLLOW UP 09/01/2014 Patient Education: Patient Medication Summary Completed 09/01/2014 Patient Education: Patient Medication Summary Completed 08/23/2014 Visit Plan: Lab discussed Check testicul ar US Change namenda to Namenda XR 23mg QD Check PSA 07/02/2013 Appointment: Roxie Lopez WPtel: [address] [place] [address] ACUTE ILLNESS 07/02/2013 Patient Education: Patient Medication Summary Completed 07/02/2013 Visit Plan: Continue namenda 10mg po BID Discussed aricept 06/25/2012 Appointment: Roxie Lopez WPtel: [address] [place] [address] US confirmed w ACUTE ILLNESS 06/25/2012 Patient Education: Patient Medication Summary Completed 06/25/2012 Appointment: Roxie Lopez WPtel: [address] [place] [address] FOLLOW UP 05/15/2012 Patient Education: Patient Medication Summary Completed 05/15/2012 Visit Plan: Continue current meds Lab di scussed Long discussion about meds, diet, exercise and weight loss for decreasing TG and elevating HDL Add Nystatin/TAC cream to use prn 12/06/2011 Appointment: Roxie Lopez WPtel: [address] [place] [address] CHECK UP 12/06/2011 Patient Education: Patient Medication Summary Completed 12/06/2011 Visit Plan: Check fasting lab--CMP, lipi ds, PSA, PT/INR Loan deferment paperwork filled out 10/30/2010 Appointment: Roxie Lopez WPtel: [address] [place] [address] ESTABLISHED PATIENT 10/30/2010 Patient Education: Patient Medication Summary Completed 10/30/2010 Referral: Angeline Arellano WPtel: [address] [place] [address] Referral Appointment Requested Instructions Comment . Check [...]
--- OUTSIDE RECORDS SUMMARY | 2021-10-12 10:14 | XMS REPORT | CCD ---
Author Author Ronnie Lopez D.O. Organization [facility] Address [address] [place] [address] Phone Care Team Providers Care Machine Pan Greaser Name Role Phone Roxie Lopez D.O., PP Unavailable CCM Unavailable Summary Purpose Interface Exchange Insurance Providers Payer name Policy type / Coverage type Covered alliance party ID Effective Begin Date Effective End Date [employer] Medicare [id number] Unknown Family History Family History data not found Social History Social History Element Codes Description Effective Dates Marital status Unknown 12/06/[address]: 4130313 Former smoker 2000 12/06/2011 Allergies, Adverse Reactions, [...] VACCINE ICD-10: Z23 ICD-9: V04.81 10/02/2016 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 01 [...] 788.43 01/07/2019 Active Atherosclerotic heart disease of [place] coronary arter y without angina pectoris ICD-10: [...] Intensol 1 mg/mL Drops (concentrate) RxNorm: 3 76202 Take 5 Drop(s) Oral QD 10/05/2021 10/09/2021 Active Zithromax 200 mg/5 mL oral suspension RxNorm: 844061 Ta ke 12.5 Milliliter(s) Oral QD 10/05/2021 10/09/2021 Active albuterol sulfate HFA 90 mcg/actuation aerosol inhaler RxNor m: 2716978 Inhale 2 Puff(s) Inhalation Q4H as needed 10/05/2021 10/05/2021 Inactive albuterol sulfate HFA 90 mcg/actuation aerosol inhaler RxNor m: 2204461 Inhale 2 Puff(s) Inhalation Q4H as needed 10/05/2021 10/05/2021 Inactive memantine 10 mg tablet RxNorm: 866928 TAKE 1 TABLET TWI CE DAILY (REPLACES NAMENDA XR) 10/04/2021 04/01/2022 Active escitalopram 20 mg tablet RxNorm: 202496 TAKE 1 TABLET AT BEDTIME 1 12/05/2020 04/01/2022 Active warfarin 2 mg tablet RxNorm: 065548 TAKE 1 AND 1/2 TABL ETS ON SATURDAY, SATURDAY, SATURDAY, SATURDAY AND TAKE 2 TABLETS ON SATURDAY, SATURDAY AND Saturday08/23/2021 11/20/2021 Active tamsulosin 0.4 mg capsule RxNorm: 763553 TAKE 1 CAPSULE EVERY DAY 0 06/26/2021 09/23/2021 Inactive carbidopa 25 mg-levodopa 100 mg tablet RxNorm: 878534 T PHAM 1 TABLET TWICE DAILY FOR TREMORS 06/26/2021 07/04/2021 Inactive memantine 10 mg tablet RxNorm: 326867 TAKE 1 TABLET TWI CE DAILY (REPLACES NAMENDA XR) 06/26/2021 06/26/2021 Inactive escitalopram 20 mg tablet RxNorm: 176335 TAKE 1 TABLET AT BEDTIME 0 06/26/2021 06/26/2021 Inactive warfarin 2 mg tablet RxNorm: 350212 TAKE 1 AND 1/2 TABL ETS ON SATURDAY, SATURDAY, SATURDAY, SATURDAY AND TAKE 2 TABLETS ON SATURDAY, SATURDAY AND Saturday06/26/2021 06/26/2021 Inactive Sinemet 25 mg-100 mg tablet RxNorm: 417979 Take 1 Table t(s) Oral two times a day for tremors 04/26/2021 04/26/2021 Inactive memantine 10 mg tablet RxNorm: 992126 TAKE 1 TABLET TWI CE DAILY (REPLACES NAMENDA XR) 04/12/2021 04/12/2021 Inactive warfarin 2 mg tablet RxNorm: 845563 2 Tablet(s) Oral Mo through Saturday and 1.5 tablets on Saturday/Saturday01/19/2021 No Stop Date Active tamsulosin 0.4 mg capsule RxNorm: 703412 TAKE 1 CAPSULE EVERY DAY 0 12/19/2020 12/19/2020 Inactive warfarin 2 mg tablet RxNorm: 462495 TAKE 1 AND 1/2 TABL ETS ON SATURDAY, SATURDAY, SATURDAY, SATURDAY AND TAKE 2 TABLETS ON SATURDAY, SATURDAY AND Saturday12/12/2020 01/18/2021 Inactive escitalopram 20 mg tablet RxNorm: 329439 TAKE 1 TABLET AT BEDTIME 0 11/28/2020 11/28/2020 Inactive Namenda 10 mg tablet RxNorm: 829810 TAKE 1 TABLET TWICE DAILY (REPLACES NAMENDA XR) 10/17/2020 10/17/2020 Inactive melatonin 10 mg capsule RxNorm: 824933 1 Capsule(s) Oral QD 020 No Stop Date Active tamsulosin 0.4 mg capsule RxNorm: 998506 TAKE 1 CAPSULE EVERY DAY 1 12/18/2020 Inactive warfarin 2 mg tablet RxNorm: 960798 TAKE 1 AND 1/2 TABL ETS ON SATURDAY, SATURDAY, SATURDAY, SATURDAY AND TAKE 2 TABLETS ON SATURDAY, SATURDAY AND Saturday07/12/2020 12/11/2020 Inactive warfarin 2 mg tablet RxNorm: 826193 TAKE 1 AND 1/2 TABL ETS ON SATURDAY, SATURDAY, SATURDAY, SATURDAY AND TAKE 2 TABLETS ON SATURDAY, SATURDAY AND Saturday06/27/2020 07/11/2020 Inactive Namenda 10 mg tablet RxNorm: 701610 TAKE 1 TABLET TWICE DAILY (REPLACES NAMENDA XR) 04/18/2020 10/16/2020 Inactive tamsulosin 0.4 mg capsule RxNorm: 586742 1 Capsule(s) Oral QD 02/1108/10/2020 Inactive Depakote ER 250 mg tablet,extended release RxNorm: 1332546 1 Tab let(s) Oral QPM 01/21/2020 04/20/2020 Inactive warfarin 2 mg tablet RxNorm: 056939 TAKE 1 AND 1/2 TABL ETS ON SATURDAY, SATURDAY, SATURDAY AND SATURDAY AND TAKE 2 TABLETS ON SATURDAY, SATURDAY AND Saturday12/14/2019 06/26/2020 Inactive escitalopram 20 mg tablet RxNorm: 423101 TAKE 1 TABLET AT BEDTIME 0 11/16/2019 11/27/2020 Inactive Namenda 10 mg tablet RxNorm: 444827 TAKE 1 TABLET TWICE DAILY (REPLACES NAMENDA XR) 10/08/2019 04/17/2020 Inactive tamsulosin 0.4 mg capsule RxNorm: 695664 1 Capsule(s) Oral QD 09/0202/11/2020 Inactive warfarin 2 mg tablet RxNorm: 495782 1.5 Tablet(s) PO on , , Sat, and Sun and 2 tablets on Sat, Sat, Sat07/13/2019 07/12/2019 Inactive Depakote ER 250 mg tablet,extended release RxNorm: 7315247 1 Tab let(s) PO BID 06/08/2019 09/05/2019 Inactive pravastatin 80 mg tablet RxNorm: 408874 TAKE 1 TABLET EVERY DAY 11/201809/01/2019 Inactive warfarin 2 mg tablet RxNorm: 035867 TAKE 1 AND 1/2 TABS ON SATURDAY,SATURDAY AND SATURDAY AND TAKE 2 TABS ON , , SAT AND SUN (NEED MD APPOINTMENT) 03/09/2019 07/13/2019 Inactive Namenda 10 mg tablet RxNorm: 695267 TAKE 1 TABLET TWICE DAILY (REPLACES NAMENDA XR) 02/09/2019 08/07/2019 Inactive doxepin 25 mg capsule RxNorm: 8192821 1 Capsule(s) PO QH S for sleep replaces 10mg dose 02/09/2019 04/21/2019 Inactive escitalopram 20 mg tablet RxNorm: 707820 1 Tablet(s) PO QHS 019 08/07/2019 Inactive tamsulosin 0.4 mg capsule RxNorm: 236598 1 Capsule(s) P O QPM for urinary frequency 01/07/2019 02/12/2020 Inactive divalproex 250 mg tablet,delayed release RxNorm: 2244316 1 Table t(s) PO QHS 01/07/2019 01/07/2019 Inactive doxepin 10 mg capsule RxNorm: 6147854 1-2 Capsule(s) PO QHS as n eeded for sleep 01/07/2019 02/08/2019 Inactive warfarin 2 mg tablet RxNorm: 064633 1 1/2 Tablet(s) PO MWF and 2 tablets on Sat and Sun 12/29/2018 03/08/2019 Inactive metoprolol tartrate 50 mg tablet RxNorm: 083182 TAKE 1 TABLET T WICE DAILY 12/01/2018 06/30/2019 Inactive Namenda 10 mg tablet RxNorm: 614500 TAKE 1 TABLET TWICE DAILY (REPLACES NAMENDA XR) 09/22/2018 02/08/2019 Inactive warfarin 2 mg tablet RxNorm: 281334 1 1/2 Tablet(s) PO MWF and 2 tablets on T Th Sat and Sun 09/02/2018 09/01/2018 Inactive escitalopram 10 mg tablet RxNorm: 526586 1 Tablet(s) PO QHS 018 02/08/2019 Inactive pravastatin 80 mg tablet RxNorm: 936206 1 Tablet(s) PO QD 01/28/2018 10/24/2018 Inactive Namenda 10 mg tablet RxNorm: 135164 1 Tablet(s) PO BID 11/27/2017 Inactive escitalopram 10 mg tablet RxNorm: 832982 1 Tablet(s) PO QHS 018 06/09/2018 Inactive Namenda XR 28 mg capsule sprinkle,extended release RxNorm: 9 76945 TAKE ONE CAPSULE BY MOUTH ONCE DAILY 10/10/2017 11/26/2017 Inactive metoprolol tartrate 50 mg tablet RxNorm: 574579 Tablet( s) TAKE 1 TABLET TWICE DAILY 10/03/2017 09/27/2018 Inactive warfarin 2 mg tablet RxNorm: 164205 Tablet(s) TAKE 2 TA BLETS SATURDAY THROUGH SATURDAY AND 1 TABLET SATURDAY AND Saturday05/09/2017 09/02/2018 Inactive divalproex 250 mg tablet,delayed release RxNorm: 4332988 TAKE 1 TABLET TWICE DAILY 02/19/2017 01/06/2019 Inactive Namenda XR 28 mg capsule sprinkle,extended release RxNorm: 9 93936 TAKE 1 CAPSULE EVERY DAY 02/11/2017 10/09/2017 Inactive pravastatin 80 mg tablet RxNorm: 349300 1 Tablet(s) PO QD 01/21/2017 01/28/2018 Inactive Namenda XR 28 mg capsule sprinkle,extended release RxNorm: 9 34748 TAKE ONE CAPSULE BY MOUTH ONCE DAILY 09/24/2016 02/10/2017 Inactive metoprolol tartrate 50 mg tablet RxNorm: 264947 TAKE 1 TABLET T WICE DAILY 09/10/2016 10/03/2017 Inactive warfarin 2 mg tablet RxNorm: 457876 TAKE 2 TABLETS THROUGH SATURDAY AND 1 TABLET SATURDAY AND Saturday2016 05/09/2017 Inactive divalproex 250 mg tablet,delayed release RxNorm: 8015541 1 Table t(s) PO QHS 12/19/2015 12/12/2016 Inactive pravastatin 80 mg tablet RxNorm: 931753 1 Tablet(s) PO QD 12/19/2015 01/21/2017 Inactive Namenda XR 28 mg capsule sprinkle,extended release RxNorm: 9 51982 1 Capsule(s) PO QD 11/11/2015 09/23/2016 Inactive divalproex 250 mg tablet,delayed release RxNorm: 0012414 1 Table t(s) PO QHS 10/10/2015 12/19/2015 Inactive Namenda XR 28 mg capsule sprinkle,extended release RxNorm: 9 94112 1 Capsule(s) PO QD TAKE 1 CAPSULE EVERY DAY 11/09/2014 11/11/2015 Inactive Namenda XR 28 mg capsule sprinkle,ER 24hr RxNorm: 166440 1 PO QD TAKE ONE CAPSULE BY MOUTH ONCE DAILY 10/07/2014 11/09/2014 Inactive Namenda XR 28 mg capsule sprinkle,ER 24hr RxNorm: 786797 1 Caps ule(s) PO QD 11/10/2013 10/07/2014 Inactive metoprolol tartrate 50 mg tablet RxNorm: 602739 1 Tablet(s) PO BID 05/14/2013 05/08/2014 Inactive 1BID (REPLACES TOPROL) - [place] E ONE TABLET BY MOUTH TWICE DAILY (REPLACES TOPROL) Ativan 1 mg tablet RxNorm: 848939 1 Tablet(s) PO BID 05/01/201310/09 Inactive as needed for anxiety pravastatin 40 mg tablet RxNorm: 097721 1 Tablet(s) PO QD due for labs in late summer03/26/2013 11/10/2014 Inactive warfarin 2 mg tablet RxNorm: 483309 1 Tablet(s) PO Take 2 tablets by mouth Saturday through Saturday and 1 tablet on Saturday and Saturday10/07/2012 Inactive pravastatin 40 mg tablet RxNorm: 465268 1 Tablet(s) PO QD 08/13/2012 03/26/2013 Inactive metoprolol tartrate 50 mg tablet RxNorm: 496126 1 Tablet(s) PO BID 08/13/2012 05/14/2013 Inactive 1BID (REPLACES TOPROL) - [place] E ONE TABLET BY MOUTH TWICE DAILY (REPLACES TOPROL) warfarin 2 mg tablet RxNorm: 092849 1 Tablet(s) PO QD 08/13/201202/2012 Inactive warfarin 2 mg tablet RxNorm: 479497 Tablet(s) PO 11/07/2011 08/13/2012 Inactive 2QD - TAKE TWO TABLETS BY MOUTH EVERY DAY SATURDAY THROUGH SATURDAY AND 1 TABLET ON SATURDAY AND SATURDAY pravastatin 40 mg tablet RxNorm: 209910 1 Tablet(s) PO QD 10/15/2011 08/13/2012 Inactive Ativan 1 mg tablet RxNorm: 269991 1 Tablet(s) PO BID 10/01/201109/30 Active as needed for anxiety metoprolol tartrate 50 mg tablet RxNorm: 024546 1 Tablet(s) PO BID 08/27/2011 08/13/2012 Inactive 1BID (REPLACES TOPROL) - [place] E ONE TABLET BY MOUTH TWICE DAILY (REPLACES TOPROL) pravastatin 40 mg Tab RxNorm: 205414 1 Tablet(s) PO QD 07/10/201109/2011 Inactive Ativan 1 mg Tab RxNorm: 976445 1 Tablet(s) PO BID 07/02/2011 1 Active as needed for anxiety metoprolol tartrate 50 mg Tab RxNorm: 958286 1 Tablet(s ) PO BID 1BID (REPLACES TOPROL) - TAKE ONE TABLET BY MOUTH TWICE DAILY (REPLACES TOPROL) 03/12/2011 08/26/2011 Inactive Ativan 1 mg Tab RxNorm: 906300 1 Tablet(s) PO BID as needed for anxiety 02/26/2011 02/25/2011 Active warfarin 2 mg Tab RxNorm: 519273 Tablet(s) PO 2QD - T PHAM TWO TABLETS BY MOUTH EVERY DAY SATURDAY THROUGH SATURDAY AND 1 TABLET ON SATURDAY AND Saturday12/18/2010 11/07/2011 Inactive Ativan 1 mg Tab RxNorm: 761307 1 Tablet(s) PO BID PRN for anxiety 0 11/06/2010 01/06/2019 Inactive metoprolol tartrate 50 mg Tab RxNorm: 512801 1 Tablet(s ) PO BID 1BID (REPLACES TOPROL) - TAKE ONE TABLET BY MOUTH TWICE DAILY (REPLACES TOPROL) 09/11/2010 03/12/2011 Inactive Ativan 1 mg Tab RxNorm: 030009 1 Tablet(s) PO BID PRN for anxiety 1 11/06/2010 Inactive warfarin 2 mg Tab RxNorm: 545053 Tablet(s) PO 2QD - T PHAM TWO TABLETS BY MOUTH EVERY DAY SATURDAY THROUGH SATURDAY AND 1 TABLET ON SATURDAY AND Saturday07/24/2010 10/29/2010 Inactive metoprolol tartrate 50 mg Tab RxNorm: 151439 1 Tablet(s) PO QD 01/201009/11/2010 Inactive pravastatin 40 mg Tab RxNorm: 652912 1 Tablet(s) PO QD 06/06/201004/2011 Inactive Warfarin 2 mg Tab RxNorm: 606816 2 Tablet(s) PO QD 2 tablets by mouth Saturday through Saturday, and one tablet by mouth on Saturday and Saturday. 06/06/2010 07/23/2010 Inactive Ativan 1 mg Tab RxNorm: 895828 1 Tablet(s) PO QHS PRN for anxiety 0 06/06/2010 08/27/2010 Inactive Pravastatin 40 mg Tab RxNorm: 371706 1 Tablet(s) PO QD 04/14/201012/2009 Inactive Ativan 1 mg Tab RxNorm: 374196 1 Tablet(s) PO BID PRN for anxiety 0 02/23/2010 06/02/2010 Inactive Probiotic oral RxNorm: 6205 oral 04/07/2020 Active [place] 3 Natural Fish Oil Conc capsule RxNorm: 1 Capsule(s) PO QD 0 11/27/2017 Active turmeric-turmeric root extract oral RxNorm: 8135092 oral 11/27/19 18 Active magnesium oral RxNorm: 6574 oral 04/07/2020 Active Vitamin D3 5,000 unit tablet RxNorm: 564488 1 Tablet(s) PO QD 019 Active warfarin 2 mg tablet RxNorm: 515337 1 Tablet(s) PO QD 08/13/201207/2012 Inactive Ativan 1 mg Tab RxNorm: 359367 1 Tablet(s) PO BID as needed for anxiety 02/26/2011 02/25/2011 Inactive warfarin 2 mg Tab RxNorm: 064864 2 Tablet(s) PO QD saturday06/06/2012 06/05/2012 Inactive Tricor 145 mg Tab RxNorm: 651705 1 Tablet(s) PO QD 12/06/2011 012 Inactive warfarin 4 mg tablet RxNorm: 443736 Tablet(s) PO 11/27/2017 11/26/2017 Inactive warfarin 2 mg Tab RxNorm: 809212 1 Tablet(s) PO QD on saturday and saturday06/06/2012 06/05/2012 Inactive warfarin 2 mg tablet RxNorm: 643070 1.5 Tablet(s) PO on , , Sat, and Sun and 2 tablets on Sat, Sat, Sat07/13/2019 07/12/2019 Inactive pravastatin 80 mg tablet RxNorm: 444096 1 Tablet(s) PO QD 12/19/2015 12/19/2015 Inactive metoprolol tartrate 50 mg tablet RxNorm: 038435 1 Tablet(s) PO QD 1 09/01/2019 Inactive Warfarin 2 mg Tab RxNorm: 260687 Tablet(s) PO 2 table ts by mouth Saturday through Saturday, and one tablet by mouth on Saturday and Saturday. 06/06/201012/2009 Inactive Namenda 10 mg Tab RxNorm: 696369 2 Tablet(s) PO QD 07/02/2013 013 Inactive warfarin 2 mg tablet RxNorm: 556171 1 1/2 Tablet(s) PO MWF and 2 tablets on Sat and Sun 09/02/2018 09/01/2018 Inactive Ativan 1 mg Tab RxNorm: 907972 1 Tablet(s) PO BID PRN for anxiety 0 04/20/2010 04/19/2010 Inactive warfarin 2 mg Tab RxNorm: 783912 Tablet(s) PO take 2 tablets by mouth Sat-Sat and 1 tablet on Saturday and Saturday06/06/2012 06/05/2012 Inactive Depakote ER 250 mg tablet,extended release RxNorm: 6213868 1 Tab let(s) PO BID 11/27/2017 11/26/2017 Inactive warfarin 1 mg Tab RxNorm: 119209 1 Tablet(s) PO on Saturday and Saturday10/30/2010 [...] Code Result Date S ervice Location PT [id number] PT 24.4 Seconds 07/05/2021 Unknow n PT [id number] INR 2.2 07/05/2021 Unknown PT [id number] PT 25.2 Seconds 04/28/2021 Unknow n PT [id number] INR 2.3 04/28/2021 Unknown THYROID STIMULATING HORMONE 66895 TSH 2.271 uIU/mL 04/28/2021 Unknown COMPREHENSIVE METABOLIC 63523 AST 18 U/L 2020 Unknown COMPREHENSIVE METABOLIC 25692 ALT 9 U/L 2020 Unknown COMPREHENSIVE METABOLIC 55524 BUN 17 mg/dL 2020 Unknown COMPREHENSIVE METABOLIC 42114 ALBUMIN 3.8 g/dL 2020 Unknown COMPREHENSIVE METABOLIC 49606 CHLORIDE 108 mmol/L 04/28 Unknown COMPREHENSIVE METABOLIC 33236 Bili Total 0.7 mg/dL 04/28 Unknown COMPREHENSIVE METABOLIC 46848 ALK PHOS 76 U/L 2020 Unknown COMPREHENSIVE METABOLIC 64366 SODIUM 140 mmol/L 04/28 Unknown COMPREHENSIVE METABOLIC 59038 CREATININE 0.83 mg/dL 04/05 Unknown COMPREHENSIVE METABOLIC 96733 CALCIUM 9.5 mg/dL 2020 Unknown COMPREHENSIVE METABOLIC 14651 POTASSIUM 4.1 mmol/L 04/28 Unknown COMPREHENSIVE METABOLIC 96390 Total Protein 6.9 g/dL Unknown COMPREHENSIVE METABOLIC 64834 Glucose 106 mg/dL 2020 Unknown COMPREHENSIVE METABOLIC 34897 Bicarbonate 26 mmol/L 04/05 Unknown COMPREHENSIVE METABOLIC 98902 AGAP 6 mmol/L 2020 Unknown GFR CALC [id number] GFR Non Afr Amr >60 mL/min 04/28/2021 Un known GFR CALC 8134820 GFR Afr Amr >60 mL/min 04/28/2021 Unknow n COMPLETE BLOOD COUNT [id number] WBC 4.6 10e9/L 04/28/20 21 Unknown COMPLETE BLOOD COUNT [id number] RBC 4.39 10e12/L 2020 Unknown COMPLETE BLOOD COUNT [id number] HEMOGLOBIN 14.2 g/dL 04/28/20 21 Unknown COMPLETE BLOOD COUNT [id number] HEMATOCRIT 41.1 % 04/28/20 21 Unknown COMPLETE BLOOD COUNT [id number] MCV 93.6 fL 1 Unknown COMPLETE BLOOD COUNT [id number] MCH 32.3 pg 1 Unknown COMPLETE BLOOD COUNT [id number] MCHC 34.5 g/dL 1 Unknown COMPLETE BLOOD COUNT [id number] PLATELET COUNT 198 10e9/L Unknown COMPLETE BLOOD COUNT 6274381 Mean Plt Volume 9.3 fL Unknown COMPLETE BLOOD COUNT 1439291 Neut Auto 54.8 % 1 Unknown COMPLETE BLOOD COUNT [id number] Lymph Auto 33.7 % 04/28/20 21 Unknown COMPLETE BLOOD COUNT [id number] Mcdonough Auto 9.6 % 1 Unknown COMPLETE BLOOD COUNT [id number] RDW 12.2 % 1 Unknown COMPLETE BLOOD COUNT 5093308 Eos Auto 1.7 % 1 Unknown COMPLETE BLOOD COUNT 1401816 Baso Auto 0.2 % 1 Unknown COMPLETE BLOOD COUNT 0698635 Neutrophil Abs 2.52 10e9/L Unknown COMPLETE BLOOD COUNT 3696226 Lymphocyte Abs 1.55 10e9/L Unknown COMPLETE BLOOD COUNT [id number] Monocyte Abs 0.44 10e9/L 04/05 Unknown COMPLETE BLOOD COUNT [id number] Eosinophil Abs 0.08 10e9/L Unknown COMPLETE BLOOD COUNT [id number] RDW-SD 40.9 fL 1 Unknown COMPLETE BLOOD COUNT [id number] Basophil Abs 0.01 10e9/L 04/05 Unknown FREE T4 05571 T4 Free 0.81 ng/dL 04/28/2021 Unknown PT [id number] PT 19.8 Seconds 01/18/2021 Unknow n PT [id number] INR 1.6 01/18/2021 Unknown PT [id number] PT 18.7 Seconds 10/14/2020 Unknow n PT [id number] INR 1.5 10/14/2020 Unknown COMPREHENSIVE METABOLIC 69310 AST 17 U/L 2019 Unknown COMPREHENSIVE METABOLIC 88875 ALT 10 U/L 2019 Unknown COMPREHENSIVE METABOLIC 59283 BUN 19 mg/dL 2019 Unknown COMPREHENSIVE METABOLIC 69519 ALBUMIN 4.1 g/dL 2019 Unknown COMPREHENSIVE METABOLIC 95382 CHLORIDE 103 mmol/L 10/14 Unknown COMPREHENSIVE METABOLIC 75548 Bili Total 0.6 mg/dL 10/14 Unknown COMPREHENSIVE METABOLIC 11880 ALK PHOS 65 U/L 2019 Unknown COMPREHENSIVE METABOLIC 89099 SODIUM 141 mmol/L 10/14 Unknown COMPREHENSIVE METABOLIC 54567 CREATININE 0.77 mg/dL 10/04 Unknown COMPREHENSIVE METABOLIC 76981 CALCIUM 9.2 mg/dL 2019 Unknown COMPREHENSIVE METABOLIC 12748 POTASSIUM 4.2 mmol/L 10/14 Unknown COMPREHENSIVE METABOLIC 68695 Total Protein 6.7 g/dL Unknown COMPREHENSIVE METABOLIC 04929 Glucose 91 mg/dL 2019 Unknown COMPREHENSIVE METABOLIC 85275 Bicarbonate 28 mmol/L 10/04 Unknown COMPREHENSIVE METABOLIC 25110 AGAP 10 mmol/L 2019 Unknown FREE T4 39669 T4 Free 0.81 ng/dL 10/14/2020 Unknown HEMOGLOBIN A1C (GLYCOSYLATED) 6401343 Hgb A1c 73428-1 4.4 % 10/14/2020 Unknown HEMOGLOBIN A1C (GLYCOSYLATED) 2430164 Calc Mean Gluc 80 mg /dL 10/14/2020 Unknown COMPLETE BLOOD COUNT 2731897 WBC 5.4 10e9/L 10/14/20 20 Unknown COMPLETE BLOOD COUNT [id number] RBC 4.40 10e12/L 2019 Unknown COMPLETE BLOOD COUNT [id number] HEMOGLOBIN 14.4 g/dL 10/14/20 20 Unknown COMPLETE BLOOD COUNT [id number] HEMATOCRIT 42.4 % 10/14/20 20 Unknown COMPLETE BLOOD COUNT 7971434 MCV 96.4 fL 0 Unknown COMPLETE BLOOD COUNT 0355640 MCH 32.7 pg 0 Unknown COMPLETE BLOOD COUNT 8549045 MCHC 34.0 g/dL 0 Unknown COMPLETE BLOOD COUNT [id number] PLATELET COUNT 216 10e9/L 09/2020 Unknown COMPLETE BLOOD COUNT 7017593 Mean Plt Volume 9.5 fL 09/2020 Unknown COMPLETE BLOOD COUNT 0271076 Neut Auto 57.6 % 0 Unknown COMPLETE BLOOD COUNT 0284103 Lymph Auto 31.5 % 10/14/20 20 Unknown COMPLETE BLOOD COUNT 7685364 Mcdonough Auto 9.0 % 0 Unknown COMPLETE BLOOD COUNT 7831083 RDW 12.4 % 0 Unknown COMPLETE BLOOD COUNT 9200107 Eos Auto 1.7 % 0 Unknown COMPLETE BLOOD COUNT 9212507 Baso Auto 0.2 % 0 Unknown COMPLETE BLOOD COUNT 7234171 Neutrophil Abs 3.11 10e9/L Unknown COMPLETE BLOOD COUNT 6091574 Lymphocyte Abs 1.70 10e9/L Unknown COMPLETE BLOOD COUNT [id number] Monocyte Abs 0.49 10e9/L 10/04 Unknown COMPLETE BLOOD COUNT 8316435 Eosinophil Abs 0.09 10e9/L Unknown COMPLETE BLOOD COUNT 7620795 RDW-SD 42.4 fL 0 Unknown COMPLETE BLOOD COUNT 3344459 Basophil Abs 0.01 10e9/L 10/04 Unknown THYROID STIMULATING HORMONE 15980 TSH 2.071 uIU/mL 10/14/2020 Unknown LIPID GROUP 65456 Cholesterol 217 mg/dL 10/14/2020 Unkno wn LIPID GROUP 70064 Triglyceride 108 mg/dL 10/14/2020 Unkn own LIPID GROUP 38496 HDL CHOLESTEROL 46 mg/dL 10/14/2020 U nknown LIPID GROUP 85559 Chol/HDL Ratio 4.72 ratio 10/14/2020 U nknown LIPID GROUP 79342 NON-HDL Chol 171 mg/dL 10/14/2020 Unkn own LIPID GROUP 89533 LDL Cholesterol 149 mg/dL 10/14/2020 U nknown GFR CALC 9585722 GFR Non Afr Amr >60 mL/min 10/14/2020 Un known GFR CALC 8626620 GFR Afr Amr >60 mL/min 10/14/2020 Unknow n COMPLETE BLOOD COUNT 8287381 WBC 7.6 10e9/L 04/06/20 20 Unknown COMPLETE BLOOD COUNT [id number] RBC 3.90 10e12/L 2019 Unknown COMPLETE BLOOD COUNT 0627721 HEMOGLOBIN 12.0 g/dL 04/06/20 20 Unknown COMPLETE BLOOD COUNT 9377952 HEMATOCRIT 36.9 % 04/06/20 20 Unknown COMPLETE BLOOD COUNT [id number] MCV 94.6 fL 0 Unknown COMPLETE BLOOD COUNT 9326536 MCH 30.8 pg 0 Unknown COMPLETE BLOOD COUNT 7112629 MCHC 32.5 g/dL 0 Unknown COMPLETE BLOOD COUNT [id number] PLATELET COUNT 257 10e9/L 01/2020 Unknown COMPLETE BLOOD COUNT 9086344 Mean Plt Volume 8.6 fL 01/2020 Unknown COMPLETE BLOOD COUNT 2552495 Neut Auto 68.7 % 0 Unknown COMPLETE BLOOD COUNT 6657592 Lymph Auto 22.0 % 04/06/20 20 Unknown COMPLETE BLOOD COUNT 6572915 Mcdonough Auto 8.3 % 0 Unknown COMPLETE BLOOD COUNT 0366232 RDW 12.7 % 0 Unknown COMPLETE BLOOD COUNT 4199191 Eos Auto 0.7 % 0 Unknown COMPLETE BLOOD COUNT 6060452 Baso Auto 0.3 % 0 Unknown COMPLETE BLOOD COUNT 1885649 Neutrophil Abs 5.22 10e9/L Unknown COMPLETE BLOOD COUNT 8982889 Lymphocyte Abs 1.67 10e9/L Unknown COMPLETE BLOOD COUNT 9802518 Monocyte Abs 0.63 10e9/L 01/2020 Unknown COMPLETE BLOOD COUNT 5594353 Eosinophil Abs 0.05 10e9/L Unknown COMPLETE BLOOD COUNT 7530678 RDW-SD 42.6 fL 0 Unknown COMPLETE BLOOD COUNT 1359538 Basophil Abs 0.02 10e9/L 01/2020 Unknown PT [id number] PT 19.3 Seconds 04/06/2020 Unknow n PT [id number] INR 1.6 04/06/2020 Unknown COMPREHENSIVE METABOLIC 85884 AST 12 U/L 2019 Unknown COMPREHENSIVE METABOLIC 46086 ALT 7 U/L 2019 Unknown COMPREHENSIVE METABOLIC 08424 BUN 19 mg/dL 2019 Unknown COMPREHENSIVE METABOLIC 69774 ALBUMIN 3.8 g/dL 2019 Unknown COMPREHENSIVE METABOLIC 29077 CHLORIDE 103 mmol/L 04/06 Unknown COMPREHENSIVE METABOLIC 18286 Bili Total 0.4 mg/dL 04/06 Unknown COMPREHENSIVE METABOLIC 45876 ALK PHOS 78 U/L 2019 Unknown COMPREHENSIVE METABOLIC 85258 SODIUM 141 mmol/L 04/06 Unknown COMPREHENSIVE METABOLIC 58462 CREATININE 0.90 mg/dL 01/2020 Unknown COMPREHENSIVE METABOLIC 01096 CALCIUM 9.0 mg/dL 2019 Unknown COMPREHENSIVE METABOLIC 84628 POTASSIUM 3.8 mmol/L 04/06 Unknown COMPREHENSIVE METABOLIC 29493 Total Protein 6.1 g/dL Unknown COMPREHENSIVE METABOLIC 09147 Glucose 125 mg/dL 2019 Unknown COMPREHENSIVE METABOLIC 97914 Bicarbonate 27 mmol/L 01/2020 Unknown COMPREHENSIVE METABOLIC 53624 AGAP 11 mmol/L 2019 Unknown GFR CALC 7591098 GFR Non Afr Amr >60 mL/min 04/06/2020 Un known GFR CALC 7748019 GFR Afr Amr >60 mL/min 04/06/2020 Unknow n PT [id number] PT 25.2 Seconds 09/02/2019 Unknow n PT [id number] INR 2.2 09/02/2019 Unknown PT [id number] PT 26.5 Seconds 04/22/2019 Unknow n PT [id number] INR 2.3 04/22/2019 Unknown FERRITIN 46490 FERRITIN 240.3 ng/mL 04/22/2019 Unknown COMPLETE BLOOD COUNT [id number] WBC 7.7 10e9/L 04/22/20 19 Unknown COMPLETE BLOOD COUNT 0636852 RBC 4.19 10e12/L 2018 Unknown COMPLETE BLOOD COUNT 2869912 HEMOGLOBIN 13.5 g/dL 04/22/20 19 Unknown COMPLETE BLOOD COUNT [id number] HEMATOCRIT 39.6 % 04/22/20 19 Unknown COMPLETE BLOOD COUNT [id number] MCV 94.5 fL 9 Unknown COMPLETE BLOOD COUNT [id number] MCH 32.2 pg 9 Unknown COMPLETE BLOOD COUNT [id number] MCHC 34.1 g/dL 9 Unknown COMPLETE BLOOD COUNT [id number] PLATELET COUNT 235 10e9/L Unknown COMPLETE BLOOD COUNT [id number] Mean Plt Volume 9.8 fL Unknown COMPLETE BLOOD COUNT [id number] Neut Auto 68.5 % 9 Unknown COMPLETE BLOOD COUNT [id number] Lymph Auto 22.4 % 04/22/20 19 Unknown COMPLETE BLOOD COUNT [id number] Mcdonough Auto 8.3 % 9 Unknown COMPLETE BLOOD COUNT 1688972 RDW 12.4 % 9 Unknown COMPLETE BLOOD COUNT [id number] Eos Auto 0.5 % 9 Unknown COMPLETE BLOOD COUNT [id number] Baso Auto 0.3 % 9 Unknown COMPLETE BLOOD COUNT [id number] Neutrophil Abs 5.27 10e9/L Unknown COMPLETE BLOOD COUNT [id number] Lymphocyte Abs 1.72 10e9/L Unknown COMPLETE BLOOD COUNT [id number] Monocyte Abs 0.64 10e9/L 04/04 Unknown COMPLETE BLOOD COUNT [id number] Eosinophil Abs 0.04 10e9/L Unknown COMPLETE BLOOD COUNT [id number] RDW-SD 41.6 fL 9 Unknown COMPLETE BLOOD COUNT [id number] Basophil Abs 0.02 10e9/L 04/04 Unknown IRON 84549 Iron 95 ug/dL 04/22/2019 Unknown GFR CALC [id number] GFR Non Afr Amr >60 mL/min 01/05/2019 Un known GFR CALC [id number] GFR Afr Amr >60 mL/min 01/05/2019 Unknow n COMPREHENSIVE METABOLIC 73063 AST 15 U/L 2018 Unknown COMPREHENSIVE METABOLIC 82391 ALT 11 U/L 2018 Unknown COMPREHENSIVE METABOLIC 80547 BUN 16 mg/dL 2018 Unknown COMPREHENSIVE METABOLIC 63126 ALBUMIN 3.9 g/dL 2018 Unknown COMPREHENSIVE METABOLIC 94454 CHLORIDE 106 mmol/L 01/05 Unknown COMPREHENSIVE METABOLIC 91297 Bili Total 0.7 mg/dL 01/05 Unknown COMPREHENSIVE METABOLIC 84948 ALK PHOS 50 U/L 2018 Unknown COMPREHENSIVE METABOLIC 01681 SODIUM 138 mmol/L 01/05 Unknown COMPREHENSIVE METABOLIC 57171 CREATININE 0.74 mg/dL 02/2019 Unknown COMPREHENSIVE METABOLIC 16103 CALCIUM 9.0 mg/dL 2018 Unknown COMPREHENSIVE METABOLIC 88797 POTASSIUM 4.3 mmol/L 01/05 Unknown COMPREHENSIVE METABOLIC 32973 Total Protein 6.4 g/dL Unknown COMPREHENSIVE METABOLIC 96573 Glucose 114 mg/dL 2018 Unknown COMPREHENSIVE METABOLIC 24338 Bicarbonate 26 mmol/L 02/2019 Unknown COMPREHENSIVE METABOLIC 53128 AGAP 6 mmol/L 2018 Unknown COMPLETE BLOOD COUNT [id number] WBC 5.5 10e9/L 01/06/20 19 Unknown COMPLETE BLOOD COUNT [id number] RBC 4.27 10e12/L 2018 Unknown COMPLETE BLOOD COUNT [id number] HEMOGLOBIN 14.0 g/dL 01/06/20 19 Unknown COMPLETE BLOOD COUNT [id number] HEMATOCRIT 40.6 % 01/06/20 19 Unknown COMPLETE BLOOD COUNT [id number] MCV 95.1 fL 9 Unknown COMPLETE BLOOD COUNT [id number] MCH 32.8 pg 9 Unknown COMPLETE BLOOD COUNT [id number] MCHC 34.5 g/dL 9 Unknown COMPLETE BLOOD COUNT [id number] PLATELET COUNT 211 10e9/L 02/2019 Unknown COMPLETE BLOOD COUNT [id number] Mean Plt Volume 9.8 fL 02/2019 Unknown COMPLETE BLOOD COUNT [id number] Neut Auto 64.7 % 9 Unknown COMPLETE BLOOD COUNT [id number] Lymph Auto 24.3 % 01/06/20 19 Unknown COMPLETE BLOOD COUNT [id number] Mcdonough Auto 9.7 % 9 Unknown COMPLETE BLOOD COUNT [id number] RDW 12.2 % 9 Unknown COMPLETE BLOOD COUNT [id number] Eos Auto 1.1 % 9 Unknown COMPLETE BLOOD COUNT [id number] Baso Auto 0.2 % 9 Unknown COMPLETE BLOOD COUNT [id number] Neutrophil Abs 3.56 10e9/L Unknown COMPLETE BLOOD COUNT [id number] Lymphocyte Abs 1.34 10e9/L Unknown COMPLETE BLOOD COUNT [id number] Monocyte Abs 0.53 10e9/L 02/2019 Unknown COMPLETE BLOOD COUNT [id number] Eosinophil Abs 0.06 10e9/L Unknown COMPLETE BLOOD COUNT [id number] RDW-SD 41.3 fL 9 Unknown COMPLETE BLOOD COUNT [id number] Basophil Abs 0.01 10e9/L 02/2019 Unknown LIPID GROUP 63303 Cholesterol 145 mg/dL 01/05/2019 Unkno wn LIPID GROUP 01665 Triglyceride 153 mg/dL 01/05/2019 Unkn own LIPID GROUP 03276 HDL CHOLESTEROL 39 mg/dL 01/05/2019 U nknown LIPID GROUP 45072 Chol/HDL Ratio 3.72 ratio 01/05/2019 U nknown LIPID GROUP 22430 NON-HDL Chol 106 mg/dL 01/05/2019 Unkn own LIPID GROUP 57325 LDL Cholesterol 75 mg/dL 01/05/2019 U nknown PT [id number] PT 30.5 Seconds 12/15/2018 Unknow n PT 7168245 INR 2.9 12/15/2018 Unknown PT 0175637 PT 17.2 Seconds 09/08/2018 Unknow n PT [id number] INR 1.4 09/08/2018 Unknown LIPID GROUP 26019 Cholesterol 190 mg/dL 07/08/2018 Unkno wn LIPID GROUP 03636 Triglyceride 402 mg/dL 07/08/2018 Unkn own L[facility] GROUP 82307 HDL CHOLESTEROL 36 mg/dL 07/08/2018 U nknown L[facility] GROUP 41219 Chol/HDL Ratio 5.28 ratio 07/08/2018 U nknown LIPID GROUP 21008 NON-HDL Chol 154 mg/dL 07/08/2018 Unkn own LIP[facility] GROUP 46199 LDL Cholesterol N/A Trig >400 018 Unknown GFR CALC 6851284 GFR Non Afr Amr >60 mL/min 07/08/2018 Un known GFR CALC 6586490 GFR Afr Amr >60 mL/min 07/08/2018 Unknow n COMPLETE BLOOD COUNT [id number] WBC 5.0 10e9/L 07/08/20 18 Unknown COMPLETE BLOOD COUNT [id number] RBC 4.08 10e12/L 2017 Unknown COMPLETE BLOOD COUNT [id number] HEMOGLOBIN 13.3 g/dL 07/08/20 18 Unknown COMPLETE BLOOD COUNT [id number] HEMATOCRIT 38.6 % 07/08/20 18 Unknown COMPLETE BLOOD COUNT [id number] MCV 94.6 fL 8 Unknown COMPLETE BLOOD COUNT [id number] MCH 32.6 pg 8 Unknown COMPLETE BLOOD COUNT 9572834 MCHC 34.5 g/dL 8 Unknown COMPLETE BLOOD COUNT 7540584 PLATELET COUNT 205 10e9/L 02/2018 Unknown COMPLETE BLOOD COUNT 8574789 Mean Plt Volume 9.8 fL 02/2018 Unknown COMPLETE BLOOD COUNT 2249213 Neut Auto 52.8 % 8 Unknown COMPLETE BLOOD COUNT 4213008 Lymph Auto 33.2 % 07/08/20 18 Unknown COMPLETE BLOOD COUNT 8280101 Mcdonough Auto 11.6 % 8 Unknown COMPLETE BLOOD COUNT 5265080 RDW 12.5 % 8 Unknown COMPLETE BLOOD COUNT 5901810 Eos Auto 2.0 % 8 Unknown COMPLETE BLOOD COUNT 0610294 Baso Auto 0.4 % 8 Unknown COMPLETE BLOOD COUNT 7256477 Neutrophil Abs 2.64 10e9/L Unknown COMPLETE BLOOD COUNT 2647646 Lymphocyte Abs 1.66 10e9/L Unknown COMPLETE BLOOD COUNT 0387302 Monocyte Abs 0.58 10e9/L 02/2018 Unknown COMPLETE BLOOD COUNT [id number] Eosinophil Abs 0.10 10e9/L Unknown COMPLETE BLOOD COUNT 0198470 RDW-SD 41.8 fL 8 Unknown COMPLETE BLOOD COUNT 5198488 Basophil Abs 0.02 10e9/L 02/2018 Unknown PT [id number] PT 32.9 Seconds 07/08/2018 Unknow n PT [id number] INR 3.2 07/08/2018 Unknown PT [id number] PT TNP:Duplicate Order 8 Unknown PT [id number] INR TNP:Duplicate Order 8 Unknown COMPREHENSIVE METABOLIC 07402 AST TNP:Duplicate Or grace 07/08/2018 Unknown COMPREHENSIVE METABOLIC 12553 ALT TNP:Duplicate Or grace 07/08/2018 Unknown COMPREHENSIVE METABOLIC 69757 BUN TNP:Duplicate Or grace 07/08/2018 Unknown COMPREHENSIVE METABOLIC 90095 ALBUMIN TNP:Duplicate Or grace 07/08/2018 Unknown COMPREHENSIVE METABOLIC 37086 CHLORIDE TNP:Duplicate Or grace 07/08/2018 Unknown COMPREHENSIVE METABOLIC 18258 Bili Total TNP:Duplicate O rder 07/08/2018 Unknown COMPREHENSIVE METABOLIC 24556 ALK PHOS TNP:Duplicate Or grace 07/08/2018 Unknown COMPREHENSIVE METABOLIC 41080 SODIUM TNP:Duplicate Or grace 07/08/2018 Unknown COMPREHENSIVE METABOLIC 35378 CREATININE TNP:Duplicate O rder 07/08/2018 Unknown COMPREHENSIVE METABOLIC 01910 CALCIUM TNP:Duplicate Or grace 07/08/2018 Unknown COMPREHENSIVE METABOLIC 71147 POTASSIUM TNP:Duplicate Or grace 07/08/2018 Unknown COMPREHENSIVE METABOLIC 71975 Total Protein TNP:Duplicat e Order 07/08/2018 Unknown COMPREHENSIVE METABOLIC 39034 Glucose TNP:Duplicate Or grace 07/08/2018 Unknown COMPREHENSIVE METABOLIC 57041 Bicarbonate TNP:Duplicate Order 07/08/2018 Unknown COMPREHENSIVE METABOLIC 30295 AGAP TNP:Duplicate Or grace 07/08/2018 Unknown COMPREHENSIVE METABOLIC 29324 AST 17 U/L 2017 Unknown COMPREHENSIVE METABOLIC 66717 ALT 12 U/L 2017 Unknown COMPREHENSIVE METABOLIC 96672 BUN 20 mg/dL 2017 Unknown COMPREHENSIVE METABOLIC 65998 ALBUMIN 4.0 g/dL 2017 Unknown COMPREHENSIVE METABOLIC 99786 CHLORIDE 107 mmol/L 07/08 Unknown COMPREHENSIVE METABOLIC 75115 Bili Total 0.3 mg/dL 07/08 Unknown COMPREHENSIVE METABOLIC 99341 ALK PHOS 58 U/L 2017 Unknown COMPREHENSIVE METABOLIC 20804 SODIUM 139 mmol/L 07/08 Unknown COMPREHENSIVE METABOLIC 66926 CREATININE 0.72 mg/dL 02/2018 Unknown COMPREHENSIVE METABOLIC 10061 CALCIUM 7.8 mg/dL 2017 Unknown COMPREHENSIVE METABOLIC 16868 POTASSIUM 4.1 mmol/L 07/08 Unknown COMPREHENSIVE METABOLIC 06771 Total Protein 6.2 g/dL Unknown COMPREHENSIVE METABOLIC 43748 Glucose 107 mg/dL 2017 Unknown COMPREHENSIVE METABOLIC 87153 Bicarbonate 22 mmol/L 02/2018 Unknown COMPREHENSIVE METABOLIC 46189 AGAP 10 mmol/L 2017 Unknown GFR CALC 0994993 GFR Non Afr Amr >60 mL/min 11/28/2017 Un known GFR CALC 9848739 GFR Afr Amr >60 mL/min 11/28/2017 Unknow n THYROID STIMULATING HORMONE 70088 TSH 4.029 uIU/mL 11/28/2017 Unknown LIPID GROUP 65977 Cholesterol 181 mg/dL 11/28/2017 Unkno wn LIPID GROUP 28723 Triglyceride 193 mg/dL 11/28/2017 Unkn own LIPID GROUP 51890 HDL CHOLESTEROL 36 11/28/2017 U nknown LIPID GROUP 97592 Chol/HDL Ratio 5.03 ratio 11/28/2017 U nknown LIPID GROUP 53569 NON-HDL Chol 145 mg/dL 11/28/2017 Unkn own LIPID GROUP 68838 LDL Cholesterol 106 mg/dL 11/28/2017 U nknown PT 7398459 PT 22.2 Seconds 11/28/2017 Unknow n PT 8195525 INR 2.0 11/28/2017 Unknown COMPREHENSIVE METABOLIC 74012 AST 19 U/L 2017 Unknown COMPREHENSIVE METABOLIC 04531 ALT 16 U/L 2017 Unknown COMPREHENSIVE METABOLIC 37302 BUN 22 mg/dL 2017 Unknown COMPREHENSIVE METABOLIC 09994 ALBUMIN 4.1 g/dL 2017 Unknown COMPREHENSIVE METABOLIC 52718 CHLORIDE 108 mmol/L 11/28 Unknown COMPREHENSIVE METABOLIC 66962 Bili Total 0.5 mg/dL 11/28 Unknown COMPREHENSIVE METABOLIC 07262 ALK PHOS 53 U/L 2017 Unknown COMPREHENSIVE METABOLIC 91453 SODIUM 141 mmol/L 11/28 Unknown COMPREHENSIVE METABOLIC 04042 CREATININE 0.83 mg/dL 11/05 Unknown COMPREHENSIVE METABOLIC 72435 CALCIUM 9.1 mg/dL 2017 Unknown COMPREHENSIVE METABOLIC 62103 POTASSIUM 4.6 mmol/L 11/28 Unknown COMPREHENSIVE METABOLIC 99759 Total Protein 6.5 g/dL Unknown COMPREHENSIVE METABOLIC 39943 Glucose 106 mg/dL 2017 Unknown COMPREHENSIVE METABOLIC 82052 Bicarbonate 26 mmol/L 11/05 Unknown COMPREHENSIVE METABOLIC 26401 AGAP 7 mmol/L 2017 Unknown COMPLETE BLOOD COUNT 0591401 WBC 5.1 10e9/L 11/28/19 18 Unknown COMPLETE BLOOD COUNT 0639626 RBC 4.22 10e12/L 2017 Unknown COMPLETE BLOOD COUNT 4284138 HEMOGLOBIN 13.5 g/dL 11/28/19 18 Unknown COMPLETE BLOOD COUNT 8341538 HEMATOCRIT 39.1 % 11/28/19 18 Unknown COMPLETE BLOOD COUNT 7314476 MCV 92.7 fL 8 Unknown COMPLETE BLOOD COUNT 9948181 MCH 32.0 pg 8 Unknown COMPLETE BLOOD COUNT 3389654 MCHC 34.5 g/dL 8 Unknown COMPLETE BLOOD COUNT 8145448 PLATELET COUNT 226 10e9/L Unknown COMPLETE BLOOD COUNT 3468853 Mean Plt Volume 9.6 fL Unknown COMPLETE BLOOD COUNT 0174767 Neut Auto 49.5 % 8 Unknown COMPLETE BLOOD COUNT 4530509 Lymph Auto 35.3 % 11/28/19 18 Unknown COMPLETE BLOOD COUNT 8901885 Mcdonough Auto 12.4 % 8 Unknown COMPLETE BLOOD COUNT 7524628 RDW 12.4 % 8 Unknown COMPLETE BLOOD COUNT 7058956 Eos Auto 2.2 % 8 Unknown COMPLETE BLOOD COUNT 0512377 Baso Auto 0.6 % 8 Unknown COMPLETE BLOOD COUNT 5540568 Neutrophil Abs 2.52 10e9/L Unknown COMPLETE BLOOD COUNT 5949100 Lymphocyte Abs 1.80 10e9/L Unknown COMPLETE BLOOD COUNT 7412365 Monocyte Abs 0.63 10e9/L 11/05 Unknown COMPLETE BLOOD COUNT 7085451 Eosinophil Abs 0.11 10e9/L Unknown COMPLETE BLOOD COUNT 0089686 RDW-SD 41.2 fL 8 Unknown COMPLETE BLOOD COUNT 9432604 Basophil Abs 0.03 10e9/L 11/05 Unknown Procedures Procedure Codes Date SARSCOV & INF VIR A&B AG IA CPT-4: 57584 10/04/2021 FLU VACC PRSV FREE INC ANTIG 65 AND OLDER CPT-4: 75893 08/18/2021 FLU VACC PRSV FREE INC ANTIG 65 AND OLDER CPT-4: 26524 08/18/2021 ADMIN INFLUENZA VIRUS VAC CPT-4: G0008 08/18/2021 ROUTINE VENIPUNCTURE CPT-4: 25227 07/05/2021 PROTHROMBIN TIME CPT-4: 83441 07/05/2021 PPPS, subseq visit CPT-4: G0439 10/12/2020 ROUTINE VENIPUNCTURE CPT-4: 32845 04/06/2020 COMPREHEN METABOLIC PANEL CPT-4: 34978 04/06/2020 COMPLETE CBC W/AUTO DIFF WBC CPT-4: 04353 04/06/2020 PROTHROMBIN TIME CPT-4: 07794 04/06/2020 PPPS, subseq visit CPT-4: G0439 09/02/2019 ROUTINE VENIPUNCTURE CPT-4: 17520 09/02/2019 PROTHROMBIN TIME CPT-4: 39166 09/02/2019 FLU VACC PRSV FREE INC ANTIG 65 AND OLDER CPT-4: 76365 08/20/2018 PNEUMOCOCCAL VACC 23 BRIDGET IM CPT-4: 69608 08/20/2018 ADMIN INFLUENZA VIRUS VAC CPT-4: G0008 08/20/2018 ADMIN PNEUMOCOCCAL VACCINE CPT-4: G0009 08/20/2018 PPPS, subseq visit CPT-4: G0439 11/27/2017 FLU VACC PRSV FREE INC ANTIG 65 AND OLDER CPT-4: 05085 08/14/2017 PNEUMOCOCCAL VACC 13 BRIDGET IM CPT-4: 59612 08/14/2017 ADMIN INFLUENZA VIRUS VAC CPT-4: G0008 08/14/2017 ADMIN PNEUMOCOCCAL VACCINE CPT-4: G0009 08/14/2017 FLU VACC PRSV FREE INC ANTIG 65 AND OLDER CPT-4: 42772 10/03/2016 ADMIN INFLUENZA VIRUS VAC CPT-4: G0008 10/03/2016 PPPS, subseq visit CPT-4: G0439 10/10/2015 FLUZONE, 5ML (Medicare) CPT-4: Q2038 09/01/2014 ADMIN INFLUENZA VIRUS VAC CPT-4: G0008 09/01/2014 Vital Signs Date Vital 07/05/2021 Blood Pressure 1: 122/80 Code: 8480-6 Heart Rate 1: 92 bpm Respiratory Rate: 20 bpm SpO2: 96% Temperature: 36.8 (C) / 98.2 (F) We ight: 207 lbs Code: 16841-1 04/26/2021 Blood Pressure 1: 126/82 Code: 8480-6 Heart Rate 1: 104 bpm Respiratory Rate: 20 bpm SpO2: 96% Temperature: 36.7 (C) / 98.1 (F) We ight: 212 lbs Code: 59244-7 10/12/2020 Blood Pressure 1: 104/68 Code: 8480-6 BMI: 31.6 Code: 82881-7 Heart Rate 1: 96 bpm Height: 5'7" Code: 8302-2 Respiratory Rate: 20 bpm SpO2: 95% Temperature: 36.9 (C) / 98.5 (F) Weight: 202 lbs Code: 03288-0 07/13/2020 Blood Pressure 1: 128/72 Code: 8480-6 Heart Rate 1: 76 bpm Respiratory Rate: 18 bpm SpO2: 97% Temperature: 36.3 (C) / 97.3 (F) We ight: 190 lbs Code: 24477-1 04/06/2020 Blood Pressure 1: 106/68 Code: 8480-6 BMI: 29.1 Code: 69799-1 Heart Rate 1: 96 bpm Height: 5'7" Code: 8302-2 Respiratory Rate: 20 bpm SpO2: 96% Temperature: 36.8 (C) / 98.2 (F) Weight: 186 lbs Code: 63036-2 09/02/2019 Blood Pressure 1: 94/50 Code: 8480-6 BMI: 29.8 C ode: 91929-6 Heart Rate 1: 68 bpm Height: 5'7" Code: 8302-2 Respiratory Rate: 20 bpm SpO2: 96% Temperature: 36.6 (C) / 97.9 (F) Weight: 190 lbs Code: 47089-4 07/01/2019 Blood Pressure 1: 112/60 Code: 8480-6 Heart Rate 1: 88 bpm Respiratory Rate: 20 bpm SpO2: 94% Temperature: 36.8 (C) / 98.2 (F) We ight: 201 lbs Code: 62097-4 05/27/2019 Blood Pressure 1: 104/50 Code: 8480-6 Heart Rate 1: 62 bpm SpO2: 95% Temperature: 36.3 (C) / 97.4 (F) Weight: 204 lbs Code: 16327-2 04/22/2019 Blood Pressure 1: 112/72 Code: 8480-6 Heart Rate 1: 64 bpm Respiratory Rate: 20 bpm SpO2: 95% Temperature: 36.8 (C) / 98.2 (F) We ight: 207 lbs Code: 89487-5 02/09/2019 Blood Pressure 1: 104/60 Code: 8480-6 Heart Rate 1: 72 bpm Respiratory Rate: 20 bpm SpO2: 95% Temperature: 37.1 (C) / 98.8 (F) We ight: 216 lbs Code: 60780-0 01/07/2019 Blood Pressure 1: 122/74 Code: 8480-6 Heart Rate 1: 96 bpm Respiratory Rate: 20 bpm SpO2: 96% Temperature: 36.7 (C) / 98.1 (F) We ight: 219 lbs Code: 51808-2 07/09/2018 Blood Pressure 1: 118/65 Code: 8480-6 Heart Rate 1: 62 bpm SpO2: 94% Temperature: 36.2 (C) / 97.1 (F) Weight: 237 lbs Code: 96534-6 11/27/2017 Blood Pressure 1: 124/70 Code: 8480-6 BMI: 35.2 Code: 07828-1 Heart Rate 1: 64 bpm Height: 5'8" Code: 8302-2 Respiratory Rate: 20 bpm SpO2: 94% Temperature: 36.9 (C) / 98.5 (F) Weight: 235 lbs Code: 38209-1 10/10/2015 Blood Pressure 1: 126/78 Code: 8480-6 BMI: 36.0 Code: 98600-8 Heart Rate 1: 72 bpm Height: 5'8" Code: 8302-2 Respiratory Rate: 20 bpm Temperatu re: 36.9 (C) / 98.4 (F) Weight: 240 lbs Code: 54080-8 09/01/2014 Blood Pressure 1: 114/70 Code: 8480-6 BMI: 35.4 Code: 77988-2 Heart Rate 1: 76 bpm Height: 5'8" Code: 8302-2 Respiratory Rate: 20 bpm Temperatu re: 36.7 (C) / 98.1 (F) Weight: 236 lbs Code: 80176-1 07/02/2013 Blood Pressure 1: 124/90 Code: 8480-6 BMI: 33.7 Code: 26107-1 Heart Rate 1: 76 bpm Height: 5'8" Code: 8302-2 Respiratory Rate: 20 bpm Temperatu re: 36.6 (C) / 97.8 (F) Weight: 225 lbs Code: 47474-7 06/25/2012 Blood Pressure 1: 144/100 Code: 8480-6 BMI: 34.5 Code: 86272-7 Heart Rate 1: 76 bpm Height: 5'8" Code: 8302-2 Respiratory Rate: 20 bpm Temperatu re: 36.6 (C) / 97.9 (F) Weight: 230 lbs Code: 14446-2 05/15/2012 Blood Pressure 1: 112/70 Code: 8480-6 BMI: 34.6 Code: 74589-1 Heart Rate 1: 76 bpm Height: 5'8" Code: 8302-2 Respiratory Rate: 20 bpm Temperatu re: 37.0 (C) / 98.6 (F) Weight: 231 lbs Code: 38401-8 12/06/2011 Blood Pressure 1: 142/90 Code: 8480-6 BMI: 35.4 Code: 54829-1 Heart Rate 1: 72 bpm Height: 5'8" Code: 8302-2 Respiratory Rate: 20 bpm Temperatu re: 36.9 (C) / 98.4 (F) Weight: 236 lbs Code: 52116-9 10/30/2010 Blood Pressure 1: 114/78 Code: 8480-6 Heart Rate 1: 76 bpm Temperature: 36.3 (C) / 97.4 (F) Weight: 228 lbs Code: 94869-9 Functional Status No Functional Status data Reason [...] F02.80] Diagnosis: Alzheimer's dementia[ICD10: G30.9] Roxie Lopez [facility] CPT-4: 36145 10/05/2021 ([id number]) NURSE/OUTPATIENT VISIT EST Diagnosis: Cough[ICD10: R05.9] Diagnosis: Exposure to COVID-19 virus[ICD10: Z20.822] Roxie LOPEZ DO [facility] CPT-4: 78805 10/04/2021 ([id number]) NURSE/OUTPATIENT VISIT EST Diagnosis: FLU VACCINE[ICD10: Z23] Roxie MOSQUERA DO [facility] CPT-4: 59358 08/18/2021 ([id number]) OFFICE/OUTPATIENT VISIT EST Diagnosis: Parkinson disease[ICD10: G20] Diagnosis: terminal manager (current) use of anticoagulants[ICD10: Z79.01] Roxie LOPEZ DO [facility] CPT-4: 95813 07/05/2021 ([id number]) OFFICE/OUTPATIENT VISIT EST Diagnosis: Parkinson disease[ICD10: G20] Diagnosis: Dementia[ICD10: F03.90] Roxie MOSQUERA [employer] [facility] CPT-4: 24189 04/26/2021 ([id number]) OFFICE/OUTPATIENT VISIT EST Diagnosis: 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] Diagnosis: 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: 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] Roxie LOPEZ DO [facility] CPT-4: 03655 07/13/2020 ([id number]) OFFICE/OUTPATIENT VISIT EST Diagnosis: Alzheimer's disease, unspecified[ICD10: G30.9] Roxie LOPEZ DO [facility] CPT-4: 41791 04/06/2020 ([id number]) OFFICE/OUTPATIENT VISIT EST Diagnosis: Alzheimer's disease with late onset[ICD10: G30.1] Diagnosis: Generalized anxiety disorder[ICD10: F41.1] Diagnosis: Unspecified dementia with behavioral disturbance[ICD10: F03.91] Roxie LOPEZ DO [facility] CPT-4: 60339 07/01/2019 ([id number]) OFFICE/OUTPATIENT VISIT EST Diagnosis: Alzheimer's disease with late onset[ICD10: G30.1] Diagnosis: Abnormal weight loss[ICD10: R63.4] Diagnosis: Essential (primary) hypertension[ICD10: I10] Diagnosis: Melena[ICD10: K92.1] Diagnosis: Unspecified dementia with behavioral disturbance[ICD10: F03.91] Diagnosis: Spontaneous ecchymoses[ICD10: R23.3] Roxie ROCHE RmDiane BRAYDON [employer] [facility] CPT-4: 02883 05/27/2019 ([id number]) OFFICE/OUTPATIENT VISIT EST Diagnosis: 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] Diagnosis: Alzheimer's disease with late onset[ICD10: G30.1] Diagnosis: Melena[ICD10: K92.1] Diagnosis: Abnormal weight loss[ICD10: R63.4] Roxie VENEGAS RmDiane JULIO [employer] [facility] CPT-4: 88745 04/22/2019 ([id number]) OFFICE/OUTPATIENT VISIT EST Diagnosis: 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] Diagnosis: Slow transit constipation[ICD10: K59.01] Diagnosis: Unspecified dementia with behavioral disturbance[ICD10: F03.91] Roxie FAUSTIN RmDiane BRAYDON [employer] [facility] CPT-4: 89332 02/09/2019 ([id number]) OFFICE/OUTPATIENT VISIT EST Diagnosis: Alzheimer's disease with late onset[ICD10: G30.1] Diagnosis: 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] Diagnosis: Nocturia[ICD10: R35.1] Diagnosis: Constipation, unspecified[ICD10: K59.00] Roxie FAUSTIN RmDiane JULIO [employer] [facility] CPT-4: 66436 01/07/2019 ([id number]) NURSE/OUTPATIENT VISIT EST Diagnosis: FLU VACCINE[ICD10: Z23] Diagnosis: PNEUMOCOCCAL VACCINE[ICD10: Z23] Roxie FAUSTIN RmDiane JULIO [employer] [facility] CPT-4: 19317 08/20/2018 ([id number]) OFFICE/OUTPATIENT VISIT EST Diagnosis: Mixed hyperlipidemia[ICD10: E78.2] Diagnosis: Essential (primary) hypertension[ICD10: I10] Diagnosis: Alzheimer's disease, unspecified[ICD10: G30.9] Roxie LOPEZ [facility] CPT-4: 17457 07/09/2018 ([id number]) OFFICE/OUTPATIENT VISIT EST Diagnosis: PNEUMOCOCCAL VACCINE[ICD10: Z23] Diagnosis: FLU VACCINE[ICD10: Z23] Roxie BRYSON [facility] CPT-4: 28327 08/14/2017 ([id number]) OFFICE/OUTPATIENT VISIT EST Diagnosis: FLU VACCINE[ICD10: Z23] Roxie BRYSON [facility] CPT-4: 53732 10/03/2016 ([id number]) OFFICE/OUTPATIENT VISIT EST Diagnosis: HYPERTENSION[ICD9: 401.9] Diagnosis: HYPERLIPIDEMIA NEC/NOS[ICD9: 272.4] Diagnosis: MEMORY LOSS[ICD9: 780.93] Diagnosis: - I - ANXIETY STATE NOS[ICD9: 300.00] Diagnosis: FLU VACCINE[ICD10: Z23] Roxie BRYSON [facility] CPT-4: 36348 09/01/2014 OFFICE/OUTPATIENT VISIT EST Diagnosis: HYPERTENSION[ICD9: 401.9] Diagnosis: CAD[ICD9: 414.00] Diagnosis: HYPERLIPIDEMIA NEC/NOS[ICD9: 272.4] Diagnosis: MEMORY LOSS[ICD9: 780.93] Diagnosis: ANXIETY STATE NOS[ICD9: 300.00] Diagnosis: Testicular pain[ICD9: 608.9] Roxie LOPEZ [facility] CPT-4: 97026 07/02/2013 ([id number]) OFFICE/OUTPATIENT VISIT EST Diagnosis: MEMORY LOSS[ICD9: 780.93] Roxie [facility] CPT-4: 71781 06/25/2012 ([id number]) OFFICE/OUTPATIENT VISIT EST Diagnosis: HYPERLIPIDEMIA NEC/NOS[ICD9: 272.4] Diagnosis: HYPERTENSION[ICD9: 401.9] Diagnosis: CAD[ICD9: 414.00] Diagnosis: MEMORY LOSS[ICD9: 780.93] Roxie THOMPSON [facility] CPT-4: 43291 05/15/2012 PER PM REEVAL EST PAT 65+ YR Diagnosis: ROUTINE MEDICAL EXAM[ICD9: V70.0] Diagnosis: HYPERLIPIDEMIA NEC/NOS[ICD9: 272.4] Diagnosis: HYPERTENSION[ICD9: 401.9] Diagnosis: CAD[ICD9: 414.00] Diagnosis: Seborrheic dermatitis[ICD9: 690.10] Roxie PERRY Krish LOPEZ [place] CPT-4: 65971 12/06/2011 ([id number]) OFFICE/OUTPATIENT VISIT, EST Roxie GENTILE RmDiane JULIO [place] CPT-4: 33368 10/30/2010 Plan of Care Planned Activity Notes Codes Status Date Visit Diagnosis Plan: COVID-19 Discussion: Telemed dox y.hi video visit done with COVID positive and [...] F02.80 10/05/2021 [facility]ment[facility] [phone] [id number] [facility] 10/04/2021 [facility] [phone] [facility] [facility] 08/18/2021 Visit Diagnosis Plan: Parkinson disease Discussion: In crease sinemet 25/100mg 2po BID Call in 1month ICD-9 : 332.0 ICD-10 : G20 07/05/2021 Visit Diagnosis Plan: terminal manager (current) use of antic oagulants Discussion: PT/INR drawn ICD-9 : V58.61 ICD-10 : Z79.01 07/05/2021 Appointment: Roxie Lopeztel: [address] [place] [address] US FOLLOW UP 07/05/2021 Visit Diagnosis Plan: Parkinson disease Discussion: Tr ial of sinemet 25/100mg po BID Fwup 2mos ICD-9 : 332.0 ICD-10 : G20 04/26/2021 Appointment: Roxie Lopez WPtel: [address] [place], [place] [phone] US FOLLOW UP 04/26/2021 Appointment: Roxie Lopez WPtel: [address] [place] [address] US CANCELED 01/11/2021 Visit Diagnosis Plan: [facility] for [facility] adult medical examination without abnormal findings Discussion: [...] ICD-10 : G30.1 10/12/2020 Visit Diagnosis Plan: assisted (current) use of antic oagulants Discussion: Update PT/INR ICD-9 : V58.61 ICD-10 : Z79.01 10/12/2020 Appointment: Roxie Lopez WPtel: [address] [place], [place] [phone] [place] Annual Well Visit 10/12/2020 Visit Diagnosis Plan: Dementia in other diseases classified elsewhere with behavioral disturbance Discussion: Continue with current meds [place] does not want to change meds at this time Did discuss in home care or adult daycare but states they cannot afford--she is home all days except Thurs/Fri and on those days her son and Grandson are there Return in 2 weeks for flu shot if we have them by then Follow Up: 6 months ICD-10 : F02.81 07/13/2020 Appointment: Roxie Lopez WPtel: [address] [place], [place] [phone] [place] FOLLOW UP 07/13/2020 Care Plan: PT Pending 06/27/2020 Visit Diagnosis Plan: Alzheimer's disease, unspecified Discussion: Worsening has started OTC supplements Inquiring about meals on wheels Follow Up: 3 months ICD-9 : 331.0 ICD-10 : G30.9 04/06/2020 Appointment: Roxie Lopez WPtel: [address] [place], [place] [phone] [place] FOLLOW UP 04/06/2020 Care Plan: Referral Order SNOMED-CT : [id number] Pending 04/06/2020 Appointment: Roxie Lopez WPtel: [address] [place], [place] [phone] [place] RESCHEDULED 02/24/2020 Care Plan: COMPRE[place]AB[place] : 12286-5 Pending 12/14/2019 Care Plan: LIPID PANEL LOINC : 70119-2 Pending 12/14/2019 Care Plan: PT Pending 12/14/2019 [...] : Z51.81 09/02/2019 Appointment: Roxie Lopez WPtel: [address] [place], [place] [phone] [place] originally 2 mo follow up Annual Well Visit 08/06 Visit Diagnosis Plan: Generalized anxiety disorder Dis cussion: Depakote already helping Follow Up: 2 months ICD-9 : 300.00 ICD-10 : F41.1 07/01/2019 Appointment: Roxie Lopez WPtel: [address] [place], [place] [phone] [place] FOLLOW UP 07/01/2019 Visit Diagnosis Plan: [...] : K92.1 05/27/2019 Appointment: Roxie Lopez WPtel: [address] [place], [place] [phone] [place] FOLLOW UP 05/27/2019 Visit Diagnosis Plan: [...] : F51.04 04/22/2019 Appointment: Roxie Lopez WPtel: [address] [place], [place] [phone] [place] FOLLOW UP 04/22/2019 Visit Diagnosis Plan: [...] K59.01 02/09/2019 Appointment: Roxie Lopez WPtel: [phone] [id number] FOLLOW UP 02/09/2019 Patient Education: escitalopram oxalate- [employer] [id number] Completed 02/09/2019 Patient Education: doxepin- [employer] [id number] Completed 02/09/2019 Visit Diagnosis Plan: Nocturia Discussion: [...] F51.04 01/07/2019 [facility] [phone] [id number] [place] [facility] 01/07/2019 Patient Education: tamsulosin- [employer]on [id number] Completed 01/07/2019 Patient Education: doxepin- [employer] [id number] Completed 01/07/2019 Care Plan: COMPREH[place] METAB[place]IC [place] : 67624-5 Pending 12/17/2018 Care Plan: CBC Pending 12/17/2018 Care Plan: LIPID PANEL LOINC : [id number] Pending 12/17/2018 Appointment: Roxie Lopez WPtel: [address] [place], [place] [phone] [place] INJECTION 08/20/2018 Patient Education: Patient Medication [...] : I10 07/09/2018 Appointment: Roxie Lopez WPtel: [address] [place] [address] FOLLOW UP 07/09/2018 Patient Education: Patient Medication Summary Completed 07/09/2018 Visit Diagnosis Plan: Generalized anxiety disorder Dis cussion: Add lexapro 10mg q HS ICD-9 : 300.00 ICD-10 : F41.1 11/27/2017 Visit Diagnosis Plan: Alzheimer's disease, unspecified Discussion: Change Namenda XR to Namenda 10mg po BI Follow Up: 3 months ICD-9 : 331.0 ICD-10 : G30.9 11/27/2017 Visit Diagnosis Plan: [facility] for [facility] medical examination without abnormal findings Discussion: Update fasting lab ICD-9 : V70.0 ICD-10 : Z00.00 11/27/2017 Appointment: Roxie Lopez WPtel: [facility] [address] Annual Well Visit 11/27/2017 Patient Education: Patient Medication Summary Completed 11/27/2017 Patient Education: Patient Medication Summary Completed 11/14/2017 Care Plan: CBC Pending 11/14/2017 Care Plan: PT Pending 11/14/2017 Care Plan: COMPREHEN METAB[place]IC [place] : [id number] Pending 11/14/2017 Care Plan: LIPID PANEL LOINC : [id number] Pending 11/14/2017 Care Plan: ASSAY THYROID STIM HORMONE Pen ding 11/14/2017 Appointment: Roxie Lopez WPtel: [address] [place], [place] [phone] [place] INJECTION 08/14/2017 Patient Education: Patient Medication Summary Completed 08/14/2017 Appointment: Roxie Lopez WPtel: [address] [place], [place] [phone] [place] INJECTION 10/03/2016 Patient Education: Patient Medication Summary Completed 10/03/2016 Patient Education: Patient Medication Summary Completed 01/02/2016 Care Plan: CBC Ordered 01/02/2016 Visit Plan: Check fasting lab with next PT/INR Continue current meds Discussed trial of PPI but states gaviscon works if will take so will just try it 10/10/2015 Appointment: Roxie Lopez WPtel: [address] [place] [address] 10/07/15 appt confirmed cn Annual Well Visit 05/2015 Patient Education: Patient Medication Summary Completed 10/10/2015 Appointment: Roxie Lopez WPtel: [address] [place], [place] [phone] 08/31 no answer cell # 08/31 vm 2nd # FOLLOW UP 09/01/2014 Patient Education: Patient Medication Summary Completed 09/01/2014 Patient Education: Patient Medication Summary Completed 08/23/2014 Visit Plan: Lab discussed Check testicul ar US Change namenda to Namenda XR 23mg QD Check PSA 07/02/2013 Appointment: Roxie Lopez WPtel: [address] [place] [address] ACUTE ILLNESS 07/02/2013 Patient Education: Patient Medication Summary Completed 07/02/2013 Visit Plan: Continue namenda 10mg po BID Discussed aricept 06/25/2012 Appointment: Roxie Lopez WPtel: [address] [place] [address] [place] confirmed w ACUTE ILLNESS 06/25/2012 Patient Education: Patient Medication Summary Completed 06/25/2012 Appointment: Roxie Lopez WPtel: [address] [place] [address] FOLLOW UP 05/15/2012 Patient Education: Patient Medication Summary Completed 05/15/2012 Visit Plan: Continue current meds Lab di scussed Long discussion about meds, diet, exercise and weight loss for decreasing TG and elevating HDL Add Nystatin/TAC cream to use prn 12/06/2011 Appointment: Roxie Lopez WPtel: [address] [place] [address] CHECK UP 12/06/2011 Patient Education: Patient Medication Summary Completed 12/06/2011 Visit Plan: Check fasting lab--CMP, lipi ds, PSA, PT/INR Loan deferment paperwork filled out 10/30/2010 Appointment: Roxie Lopez WPtel: [address] [place] [address] ESTABLISHED PATIENT 10/30/2010 Patient Education: Patient Medication Summary Completed 10/30/2010 Referral: Angeline Arellano WPtel: [address] [place] [address] Referral Appointment Requested Instructions Comment . Check [...]
--- OUTSIDE RECORDS SUMMARY | 2021-10-12 10:14 | XMS REPORT | CCD ---
Author Author Ronnie Lopez D.O. Organization [facility] Address [address] [place] [address] Phone Care Team Providers Care Civil Designer Name Role Phone Roxie Lopez D.O., PP Unavailable CCM Unavailable Summary Purpose Interface Exchange Insurance Providers Payer name Policy type / Coverage type Covered green party ID Effective Begin Date Effective End Date [employer] Medicare [id number] Unknown Family History Family History data not found Social History Social History Element Codes Description Effective Dates Marital status Unknown 12/06/[address]: 9194453 Former smoker 2000 12/06/2011 Allergies, Adverse Reactions, [...] VACCINE ICD-10: Z23 ICD-9: V04.81 10/02/2016 Active emt intermediate (current) use of anticoagulants ICD-10: Z79. 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: [...] Intensol 1 mg/mL Drops (concentrate) RxNorm: 3 91803 Take 5 Drop(s) Oral QD 10/05/2021 10/09/2021 Active Zithromax 200 mg/5 mL oral suspension RxNorm: 863822 Ta ke 12.5 Milliliter(s) Oral QD 10/05/2021 10/09/2021 Active albuterol sulfate HFA 90 mcg/actuation aerosol inhaler RxNor m: 1222269 Inhale 2 Puff(s) Inhalation Q4H as needed 10/05/2021 10/05/2021 Inactive albuterol sulfate HFA 90 mcg/actuation aerosol inhaler RxNor m: 3475434 Inhale 2 Puff(s) Inhalation Q4H as needed 10/05/2021 10/05/2021 Inactive memantine 10 mg tablet RxNorm: 723388 TAKE 1 TABLET TWI CE DAILY (REPLACES NAMENDA XR) 10/04/2021 04/01/2022 Active escitalopram 20 mg tablet RxNorm: 947379 TAKE 1 TABLET AT BEDTIME 1 12/05/2020 04/01/2022 Active warfarin 2 mg tablet RxNorm: 675445 TAKE 1 AND 1/2 TABL ETS ON SATURDAY, SATURDAY, SATURDAY, SATURDAY AND TAKE 2 TABLETS ON SATURDAY, SATURDAY AND Saturday08/23/2021 11/20/2021 Active tamsulosin 0.4 mg capsule RxNorm: 058960 TAKE 1 CAPSULE EVERY DAY 0 06/26/2021 09/23/2021 Inactive carbidopa 25 mg-levodopa 100 mg tablet RxNorm: 361569 T PHAM 1 TABLET TWICE DAILY FOR TREMORS 06/26/2021 07/04/2021 Inactive memantine 10 mg tablet RxNorm: 830112 TAKE 1 TABLET TWI CE DAILY (REPLACES NAMENDA XR) 06/26/2021 06/26/2021 Inactive escitalopram 20 mg tablet RxNorm: 550203 TAKE 1 TABLET AT BEDTIME 0 06/26/2021 06/26/2021 Inactive warfarin 2 mg tablet RxNorm: 506600 TAKE 1 AND 1/2 TABL ETS ON SATURDAY, SATURDAY, SATURDAY, SATURDAY AND TAKE 2 TABLETS ON SATURDAY, SATURDAY AND Saturday06/26/2021 06/26/2021 Inactive Sinemet 25 mg-100 mg tablet RxNorm: 304825 Take 1 Table t(s) Oral two times a day for tremors 04/26/2021 04/26/2021 Inactive memantine 10 mg tablet RxNorm: 140819 TAKE 1 TABLET TWI CE DAILY (REPLACES NAMENDA XR) 04/12/2021 04/12/2021 Inactive warfarin 2 mg tablet RxNorm: 947369 2 Tablet(s) Oral Mo through Saturday and 1.5 tablets on Saturday/Saturday01/19/2021 No Stop Date Active tamsulosin 0.4 mg capsule RxNorm: 363536 TAKE 1 CAPSULE EVERY DAY 0 12/19/2020 12/19/2020 Inactive warfarin 2 mg tablet RxNorm: 660272 TAKE 1 AND 1/2 TABL ETS ON SATURDAY, SATURDAY, SATURDAY, SATURDAY AND TAKE 2 TABLETS ON SATURDAY, SATURDAY AND Saturday12/12/2020 01/18/2021 Inactive escitalopram 20 mg tablet RxNorm: 842307 TAKE 1 TABLET AT BEDTIME 0 11/28/2020 11/28/2020 Inactive Namenda 10 mg tablet RxNorm: 735425 TAKE 1 TABLET TWICE DAILY (REPLACES NAMENDA XR) 10/17/2020 10/17/2020 Inactive melatonin 10 mg capsule RxNorm: 495582 1 Capsule(s) Oral QD 020 No Stop Date Active tamsulosin 0.4 mg capsule RxNorm: 301172 TAKE 1 CAPSULE EVERY DAY 1 12/18/2020 Inactive warfarin 2 mg tablet RxNorm: 482587 TAKE 1 AND 1/2 TABL ETS ON SATURDAY, SATURDAY, SATURDAY, SATURDAY AND TAKE 2 TABLETS ON SATURDAY, SATURDAY AND Saturday07/12/2020 12/11/2020 Inactive warfarin 2 mg tablet RxNorm: 807960 TAKE 1 AND 1/2 TABL ETS ON SATURDAY, SATURDAY, SATURDAY, SATURDAY AND TAKE 2 TABLETS ON SATURDAY, SATURDAY AND Saturday06/27/2020 07/11/2020 Inactive Namenda 10 mg tablet RxNorm: 663234 TAKE 1 TABLET TWICE DAILY (REPLACES NAMENDA XR) 04/18/2020 10/16/2020 Inactive tamsulosin 0.4 mg capsule RxNorm: 898539 1 Capsule(s) Oral QD 02/1108/10/2020 Inactive Depakote ER 250 mg tablet,extended release RxNorm: 8500094 1 Tab let(s) Oral QPM 01/21/2020 04/20/2020 Inactive warfarin 2 mg tablet RxNorm: 642574 TAKE 1 AND 1/2 TABL ETS ON SATURDAY, SATURDAY, SATURDAY AND SATURDAY AND TAKE 2 TABLETS ON SATURDAY, SATURDAY AND Saturday12/14/2019 06/26/2020 Inactive escitalopram 20 mg tablet RxNorm: 617115 TAKE 1 TABLET AT BEDTIME 0 11/16/2019 11/27/2020 Inactive Namenda 10 mg tablet RxNorm: 483333 TAKE 1 TABLET TWICE DAILY (REPLACES NAMENDA XR) 10/08/2019 04/17/2020 Inactive tamsulosin 0.4 mg capsule RxNorm: 841625 1 Capsule(s) Oral QD 09/0202/11/2020 Inactive warfarin 2 mg tablet RxNorm: 331970 1.5 Tablet(s) PO on , , Sat, and Sun and 2 tablets on Sat, Sat, Sat07/13/2019 07/12/2019 Inactive Depakote ER 250 mg tablet,extended release RxNorm: 2987972 1 Tab let(s) PO BID 06/08/2019 09/05/2019 Inactive pravastatin 80 mg tablet RxNorm: 442281 TAKE 1 TABLET EVERY DAY 11/201809/01/2019 Inactive warfarin 2 mg tablet RxNorm: 346887 TAKE 1 AND 1/2 TABS ON SATURDAY,SATURDAY AND SATURDAY AND TAKE 2 TABS ON , , SAT AND SUN (NEED MD APPOINTMENT) 03/09/2019 07/13/2019 Inactive Namenda 10 mg tablet RxNorm: 037865 TAKE 1 TABLET TWICE DAILY (REPLACES NAMENDA XR) 02/09/2019 08/07/2019 Inactive doxepin 25 mg capsule RxNorm: 5532302 1 Capsule(s) PO QH S for sleep replaces 10mg dose 02/09/2019 04/21/2019 Inactive escitalopram 20 mg tablet RxNorm: 429103 1 Tablet(s) PO QHS 019 08/07/2019 Inactive tamsulosin 0.4 mg capsule RxNorm: 317689 1 Capsule(s) P O QPM for urinary frequency 01/07/2019 02/12/2020 Inactive divalproex 250 mg tablet,delayed release RxNorm: 5692688 1 Table t(s) PO QHS 01/07/2019 01/07/2019 Inactive doxepin 10 mg capsule RxNorm: 1769173 1-2 Capsule(s) PO QHS as n eeded for sleep 01/07/2019 02/08/2019 Inactive warfarin 2 mg tablet RxNorm: 650389 1 1/2 Tablet(s) PO MWF and 2 tablets on Sat and Sun 12/29/2018 03/08/2019 Inactive metoprolol tartrate 50 mg tablet RxNorm: 397705 TAKE 1 TABLET T WICE DAILY 12/01/2018 06/30/2019 Inactive Namenda 10 mg tablet RxNorm: 151977 TAKE 1 TABLET TWICE DAILY (REPLACES NAMENDA XR) 09/22/2018 02/08/2019 Inactive warfarin 2 mg tablet RxNorm: 111879 1 1/2 Tablet(s) PO MWF and 2 tablets on T Th Sat and Sun 09/02/2018 09/01/2018 Inactive escitalopram 10 mg tablet RxNorm: 693735 1 Tablet(s) PO QHS 018 02/08/2019 Inactive pravastatin 80 mg tablet RxNorm: 640420 1 Tablet(s) PO QD 01/28/2018 10/24/2018 Inactive Namenda 10 mg tablet RxNorm: 942832 1 Tablet(s) PO BID 11/27/2017 Inactive escitalopram 10 mg tablet RxNorm: 563889 1 Tablet(s) PO QHS 018 06/09/2018 Inactive Namenda XR 28 mg capsule sprinkle,extended release RxNorm: 9 87650 TAKE ONE CAPSULE BY MOUTH ONCE DAILY 10/10/2017 11/26/2017 Inactive metoprolol tartrate 50 mg tablet RxNorm: 239842 Tablet( s) TAKE 1 TABLET TWICE DAILY 10/03/2017 09/27/2018 Inactive warfarin 2 mg tablet RxNorm: 324986 Tablet(s) TAKE 2 TA BLETS SATURDAY THROUGH SATURDAY AND 1 TABLET SATURDAY AND Saturday05/09/2017 09/02/2018 Inactive divalproex 250 mg tablet,delayed release RxNorm: 2915410 TAKE 1 TABLET TWICE DAILY 02/19/2017 01/06/2019 Inactive Namenda XR 28 mg capsule sprinkle,extended release RxNorm: 9 15827 TAKE 1 CAPSULE EVERY DAY 02/11/2017 10/09/2017 Inactive pravastatin 80 mg tablet RxNorm: 538200 1 Tablet(s) PO QD 01/21/2017 01/28/2018 Inactive Namenda XR 28 mg capsule sprinkle,extended release RxNorm: 9 17893 TAKE ONE CAPSULE BY MOUTH ONCE DAILY 09/24/2016 02/10/2017 Inactive metoprolol tartrate 50 mg tablet RxNorm: 559794 TAKE 1 TABLET T WICE DAILY 09/10/2016 10/03/2017 Inactive warfarin 2 mg tablet RxNorm: 481602 TAKE 2 TABLETS THROUGH SATURDAY AND 1 TABLET SATURDAY AND Saturday2016 05/09/2017 Inactive divalproex 250 mg tablet,delayed release RxNorm: 8410886 1 Table t(s) PO QHS 12/19/2015 12/12/2016 Inactive pravastatin 80 mg tablet RxNorm: 698488 1 Tablet(s) PO QD 12/19/2015 01/21/2017 Inactive Namenda XR 28 mg capsule sprinkle,extended release RxNorm: 9 80055 1 Capsule(s) PO QD 11/11/2015 09/23/2016 Inactive divalproex 250 mg tablet,delayed release RxNorm: 6471616 1 Table t(s) PO QHS 10/10/2015 12/19/2015 Inactive Namenda XR 28 mg capsule sprinkle,extended release RxNorm: 9 11047 1 Capsule(s) PO QD TAKE 1 CAPSULE EVERY DAY 11/09/2014 11/11/2015 Inactive Namenda XR 28 mg capsule sprinkle,ER 24hr RxNorm: 274900 1 PO QD TAKE ONE CAPSULE BY MOUTH ONCE DAILY 10/07/2014 11/09/2014 Inactive Namenda XR 28 mg capsule sprinkle,ER 24hr RxNorm: 987788 1 Caps ule(s) PO QD 11/10/2013 10/07/2014 Inactive metoprolol tartrate 50 mg tablet RxNorm: 907967 1 Tablet(s) PO BID 05/14/2013 05/08/2014 Inactive 1BID (REPLACES TOPROL) - [place] E ONE TABLET BY MOUTH TWICE DAILY (REPLACES TOPROL) Ativan 1 mg tablet RxNorm: 250277 1 Tablet(s) PO BID 05/01/201310/09 Inactive as needed for anxiety pravastatin 40 mg tablet RxNorm: 276213 1 Tablet(s) PO QD due for labs in late summer03/26/2013 11/10/2014 Inactive warfarin 2 mg tablet RxNorm: 801361 1 Tablet(s) PO Take 2 tablets by mouth Saturday through Saturday and 1 tablet on Saturday and Saturday10/07/2012 Inactive pravastatin 40 mg tablet RxNorm: 642244 1 Tablet(s) PO QD 08/13/2012 03/26/2013 Inactive metoprolol tartrate 50 mg tablet RxNorm: 030706 1 Tablet(s) PO BID 08/13/2012 05/14/2013 Inactive 1BID (REPLACES TOPROL) - [place] E ONE TABLET BY MOUTH TWICE DAILY (REPLACES TOPROL) warfarin 2 mg tablet RxNorm: 821558 1 Tablet(s) PO QD 08/13/201202/2012 Inactive warfarin 2 mg tablet RxNorm: 485865 Tablet(s) PO 11/07/2011 08/13/2012 Inactive 2QD - TAKE TWO TABLETS BY MOUTH EVERY DAY SATURDAY THROUGH SATURDAY AND 1 TABLET ON SATURDAY AND SATURDAY pravastatin 40 mg tablet RxNorm: 053098 1 Tablet(s) PO QD 10/15/2011 08/13/2012 Inactive Ativan 1 mg tablet RxNorm: 026068 1 Tablet(s) PO BID 10/01/201109/30 Active as needed for anxiety metoprolol tartrate 50 mg tablet RxNorm: 574499 1 Tablet(s) PO BID 08/27/2011 08/13/2012 Inactive 1BID (REPLACES TOPROL) - [place] E ONE TABLET BY MOUTH TWICE DAILY (REPLACES TOPROL) pravastatin 40 mg Tab RxNorm: 912481 1 Tablet(s) PO QD 07/10/201109/2011 Inactive Ativan 1 mg Tab RxNorm: 970441 1 Tablet(s) PO BID 07/02/2011 1 Active as needed for anxiety metoprolol tartrate 50 mg Tab RxNorm: 705735 1 Tablet(s ) PO BID 1BID (REPLACES TOPROL) - TAKE ONE TABLET BY MOUTH TWICE DAILY (REPLACES TOPROL) 03/12/2011 08/26/2011 Inactive Ativan 1 mg Tab RxNorm: 081627 1 Tablet(s) PO BID as needed for anxiety 02/26/2011 02/25/2011 Active warfarin 2 mg Tab RxNorm: 364635 Tablet(s) PO 2QD - T PHAM TWO TABLETS BY MOUTH EVERY DAY SATURDAY THROUGH SATURDAY AND 1 TABLET ON SATURDAY AND Saturday12/18/2010 11/07/2011 Inactive Ativan 1 mg Tab RxNorm: 440962 1 Tablet(s) PO BID PRN for anxiety 0 11/06/2010 01/06/2019 Inactive metoprolol tartrate 50 mg Tab RxNorm: 400499 1 Tablet(s ) PO BID 1BID (REPLACES TOPROL) - TAKE ONE TABLET BY MOUTH TWICE DAILY (REPLACES TOPROL) 09/11/2010 03/12/2011 Inactive Ativan 1 mg Tab RxNorm: 429694 1 Tablet(s) PO BID PRN for anxiety 1 11/06/2010 Inactive warfarin 2 mg Tab RxNorm: 277194 Tablet(s) PO 2QD - T PHAM TWO TABLETS BY MOUTH EVERY DAY SATURDAY THROUGH SATURDAY AND 1 TABLET ON SATURDAY AND Saturday07/24/2010 10/29/2010 Inactive metoprolol tartrate 50 mg Tab RxNorm: 697801 1 Tablet(s) PO QD 01/201009/11/2010 Inactive pravastatin 40 mg Tab RxNorm: 920817 1 Tablet(s) PO QD 06/06/201004/2011 Inactive Warfarin 2 mg Tab RxNorm: 807876 2 Tablet(s) PO QD 2 tablets by mouth Saturday through Saturday, and one tablet by mouth on Saturday and Saturday. 06/06/2010 07/23/2010 Inactive Ativan 1 mg Tab RxNorm: 680083 1 Tablet(s) PO QHS PRN for anxiety 0 06/06/2010 08/27/2010 Inactive Pravastatin 40 mg Tab RxNorm: 181605 1 Tablet(s) PO QD 04/14/201012/2009 Inactive Ativan 1 mg Tab RxNorm: 197406 1 Tablet(s) PO BID PRN for anxiety 0 02/23/2010 06/02/2010 Inactive Probiotic oral RxNorm: 6205 oral 04/07/2020 Active [place] 3 Natural Fish Oil Conc capsule RxNorm: 1 Capsule(s) PO QD 0 11/27/2017 Active turmeric-turmeric root extract oral RxNorm: 9414947 oral 11/27/19 18 Active magnesium oral RxNorm: 6574 oral 04/07/2020 Active Vitamin D3 5,000 unit tablet RxNorm: 563240 1 Tablet(s) PO QD 019 Active warfarin 2 mg tablet RxNorm: 044029 1 Tablet(s) PO QD 08/13/201207/2012 Inactive Ativan 1 mg Tab RxNorm: 040787 1 Tablet(s) PO BID as needed for anxiety 02/26/2011 02/25/2011 Inactive warfarin 2 mg Tab RxNorm: 583204 2 Tablet(s) PO QD saturday06/06/2012 06/05/2012 Inactive Tricor 145 mg Tab RxNorm: 044378 1 Tablet(s) PO QD 12/06/2011 012 Inactive warfarin 4 mg tablet RxNorm: 569264 Tablet(s) PO 11/27/2017 11/26/2017 Inactive warfarin 2 mg Tab RxNorm: 477495 1 Tablet(s) PO QD on saturday and saturday06/06/2012 06/05/2012 Inactive warfarin 2 mg tablet RxNorm: 879828 1.5 Tablet(s) PO on , , Sat, and Sun and 2 tablets on Sat, Sat, Sat07/13/2019 07/12/2019 Inactive pravastatin 80 mg tablet RxNorm: 213695 1 Tablet(s) PO QD 12/19/2015 12/19/2015 Inactive metoprolol tartrate 50 mg tablet RxNorm: 730903 1 Tablet(s) PO QD 1 09/01/2019 Inactive Warfarin 2 mg Tab RxNorm: 612732 Tablet(s) PO 2 table ts by mouth Saturday through Saturday, and one tablet by mouth on Saturday and Saturday. 06/06/201012/2009 Inactive Namenda 10 mg Tab RxNorm: 681926 2 Tablet(s) PO QD 07/02/2013 013 Inactive warfarin 2 mg tablet RxNorm: 086538 1 1/2 Tablet(s) PO MWF and 2 tablets on Sat and Sun 09/02/2018 09/01/2018 Inactive Ativan 1 mg Tab RxNorm: 529386 1 Tablet(s) PO BID PRN for anxiety 0 04/20/2010 04/19/2010 Inactive warfarin 2 mg Tab RxNorm: 693842 Tablet(s) PO take 2 tablets by mouth Sat-Sat and 1 tablet on Saturday and Saturday06/06/2012 06/05/2012 Inactive Depakote ER 250 mg tablet,extended release RxNorm: 4085729 1 Tab let(s) PO BID 11/27/2017 11/26/2017 Inactive warfarin 1 mg Tab RxNorm: 337418 1 Tablet(s) PO on Saturday and Saturday10/30/2010 [...] Code Result Date S ervice Location PT [id number] PT 24.4 Seconds 07/05/2021 Unknow n PT [id number] INR 2.2 07/05/2021 Unknown PT [id number] PT 25.2 Seconds 04/28/2021 Unknow n PT [id number] INR 2.3 04/28/2021 Unknown THYROID STIMULATING HORMONE 93691 TSH 2.271 uIU/mL 04/28/2021 Unknown COMPREHENSIVE METABOLIC 42182 AST 18 U/L 2020 Unknown COMPREHENSIVE METABOLIC 43902 ALT 9 U/L 2020 Unknown COMPREHENSIVE METABOLIC 58545 BUN 17 mg/dL 2020 Unknown COMPREHENSIVE METABOLIC 25706 ALBUMIN 3.8 g/dL 2020 Unknown COMPREHENSIVE METABOLIC 87102 CHLORIDE 108 mmol/L 04/28 Unknown COMPREHENSIVE METABOLIC 73048 Bili Total 0.7 mg/dL 04/28 Unknown COMPREHENSIVE METABOLIC 38522 ALK PHOS 76 U/L 2020 Unknown COMPREHENSIVE METABOLIC 18219 SODIUM 140 mmol/L 04/28 Unknown COMPREHENSIVE METABOLIC 13218 CREATININE 0.83 mg/dL 04/05 Unknown COMPREHENSIVE METABOLIC 76412 CALCIUM 9.5 mg/dL 2020 Unknown COMPREHENSIVE METABOLIC 88290 POTASSIUM 4.1 mmol/L 04/28 Unknown COMPREHENSIVE METABOLIC 07082 Total Protein 6.9 g/dL Unknown COMPREHENSIVE METABOLIC 11626 Glucose 106 mg/dL 2020 Unknown COMPREHENSIVE METABOLIC 57285 Bicarbonate 26 mmol/L 04/05 Unknown COMPREHENSIVE METABOLIC 10197 AGAP 6 mmol/L 2020 Unknown GFR CALC [id number] GFR Non Afr Amr >60 mL/min 04/28/2021 Un known GFR CALC [id number] GFR Afr Amr >60 mL/min 04/28/2021 Unknow n COMPLETE BLOOD COUNT [id number] WBC 4.6 10e9/L 04/28/20 21 Unknown COMPLETE BLOOD COUNT [id number] RBC 4.39 10e12/L 2020 Unknown COMPLETE BLOOD COUNT [id number] HEMOGLOBIN 14.2 g/dL 04/28/20 21 Unknown COMPLETE BLOOD COUNT [id number] HEMATOCRIT 41.1 % 04/28/20 21 Unknown COMPLETE BLOOD COUNT [id number] MCV 93.6 fL 1 Unknown COMPLETE BLOOD COUNT 8543794 MCH 32.3 pg 1 Unknown COMPLETE BLOOD COUNT 5754258 MCHC 34.5 g/dL 1 Unknown COMPLETE BLOOD COUNT [id number] PLATELET COUNT 198 10e9/L Unknown COMPLETE BLOOD COUNT 1815966 Mean Plt Volume 9.3 fL Unknown COMPLETE BLOOD COUNT 1910600 Neut Auto 54.8 % 1 Unknown COMPLETE BLOOD COUNT [id number] Lymph Auto 33.7 % 04/28/20 21 Unknown COMPLETE BLOOD COUNT 6147676 [place] Auto 9.6 % 1 Unknown COMPLETE BLOOD COUNT 3905896 RDW 12.2 % 1 Unknown COMPLETE BLOOD COUNT 1292848 Eos Auto 1.7 % 1 Unknown COMPLETE BLOOD COUNT [id number] Baso Auto 0.2 % 1 Unknown COMPLETE BLOOD COUNT [id number] Neutrophil Abs 2.52 10e9/L Unknown COMPLETE BLOOD COUNT [id number] Lymphocyte Abs 1.55 10e9/L Unknown COMPLETE BLOOD COUNT [id number] Monocyte Abs 0.44 10e9/L 04/05 Unknown COMPLETE BLOOD COUNT [id number] Eosinophil Abs 0.08 10e9/L Unknown COMPLETE BLOOD COUNT [id number] RDW-SD 40.9 fL 1 Unknown COMPLETE BLOOD COUNT [id number] Basophil Abs 0.01 10e9/L 04/05 Unknown FREE T4 51026 T4 Free 0.81 ng/dL 04/28/2021 Unknown PT [id number] PT 19.8 Seconds 01/18/2021 Unknow n PT [id number] INR 1.6 01/18/2021 Unknown PT [id number] PT 18.7 Seconds 10/14/2020 Unknow n PT [id number] INR 1.5 10/14/2020 Unknown COMPREHENSIVE METABOLIC 53676 AST 17 U/L 2019 Unknown COMPREHENSIVE METABOLIC 86060 ALT 10 U/L 2019 Unknown COMPREHENSIVE METABOLIC 21287 BUN 19 mg/dL 2019 Unknown COMPREHENSIVE METABOLIC 83688 ALBUMIN 4.1 g/dL 2019 Unknown COMPREHENSIVE METABOLIC 55408 CHLORIDE 103 mmol/L 10/14 Unknown COMPREHENSIVE METABOLIC 57682 Bili Total 0.6 mg/dL 10/14 Unknown COMPREHENSIVE METABOLIC 79782 ALK PHOS 65 U/L 2019 Unknown COMPREHENSIVE METABOLIC 83713 SODIUM 141 mmol/L 10/14 Unknown COMPREHENSIVE METABOLIC 65602 CREATININE 0.77 mg/dL 10/04 Unknown COMPREHENSIVE METABOLIC 67114 CALCIUM 9.2 mg/dL 2019 Unknown COMPREHENSIVE METABOLIC 87888 POTASSIUM 4.2 mmol/L 10/14 Unknown COMPREHENSIVE METABOLIC 75966 Total Protein 6.7 g/dL Unknown COMPREHENSIVE METABOLIC 56086 Glucose 91 mg/dL 2019 Unknown COMPREHENSIVE METABOLIC 52287 Bicarbonate 28 mmol/L 10/04 Unknown COMPREHENSIVE METABOLIC 19400 AGAP 10 mmol/L 2019 Unknown FREE T4 82497 T4 Free 0.81 ng/dL 10/14/2020 Unknown HEMOGLOBIN A1C (GLYCOSYLATED) 5899840 Hgb A1c 83256-8 4.4 % 10/14/2020 Unknown HEMOGLOBIN A1C (GLYCOSYLATED) 3627264 Calc Mean Gluc 80 mg /dL 10/14/2020 Unknown COMPLETE BLOOD COUNT 8502809 WBC 5.4 10e9/L 10/14/20 20 Unknown COMPLETE BLOOD COUNT [id number] RBC 4.40 10e12/L 2019 Unknown COMPLETE BLOOD COUNT [id number] HEMOGLOBIN 14.4 g/dL 10/14/20 20 Unknown COMPLETE BLOOD COUNT [id number] HEMATOCRIT 42.4 % 10/14/20 20 Unknown COMPLETE BLOOD COUNT 4881752 MCV 96.4 fL 0 Unknown COMPLETE BLOOD COUNT 1612432 MCH 32.7 pg 0 Unknown COMPLETE BLOOD COUNT 0507435 MCHC 34.0 g/dL 0 Unknown COMPLETE BLOOD COUNT 3901822 PLATELET COUNT 216 10e9/L 09/2020 Unknown COMPLETE BLOOD COUNT 7401588 Mean Plt Volume 9.5 fL 09/2020 Unknown COMPLETE BLOOD COUNT 5321745 Neut Auto 57.6 % 0 Unknown COMPLETE BLOOD COUNT [id number] Lymph Auto 31.5 % 10/14/20 20 Unknown COMPLETE BLOOD COUNT [id number] [place] Auto 9.0 % 0 Unknown COMPLETE BLOOD COUNT 1298947 RDW 12.4 % 0 Unknown COMPLETE BLOOD COUNT 5365433 Eos Auto 1.7 % 0 Unknown COMPLETE BLOOD COUNT 6118111 Baso Auto 0.2 % 0 Unknown COMPLETE BLOOD COUNT 8253083 Neutrophil Abs 3.11 10e9/L Unknown COMPLETE BLOOD COUNT [id number] Lymphocyte Abs 1.70 10e9/L Unknown COMPLETE BLOOD COUNT [id number] Monocyte Abs 0.49 10e9/L 10/04 Unknown COMPLETE BLOOD COUNT 8355705 Eosinophil Abs 0.09 10e9/L Unknown COMPLETE BLOOD COUNT [id number] RDW-SD 42.4 fL 0 Unknown COMPLETE BLOOD COUNT [id number] Basophil Abs 0.01 10e9/L 10/04 Unknown THYROID STIMULATING HORMONE 53936 TSH 2.071 uIU/mL 10/14/2020 Unknown LIPID GROUP 96619 Cholesterol 217 mg/dL 10/14/2020 Unkno wn LIPID GROUP 55794 Triglyceride 108 mg/dL 10/14/2020 Unkn own LIPID GROUP 03204 HDL CHOLESTEROL 46 mg/dL 10/14/2020 U nknown LIPID GROUP 73160 Chol/HDL Ratio 4.72 ratio 10/14/2020 U nknown LIPID GROUP 12258 NON-HDL Chol 171 mg/dL 10/14/2020 Unkn own LIPID GROUP 95418 LDL Cholesterol 149 mg/dL 10/14/2020 U nknown GFR CALC 5404588 GFR Non Afr Amr >60 mL/min 10/14/2020 Un known GFR CALC 9179711 GFR Afr Amr >60 mL/min 10/14/2020 Unknow n COMPLETE BLOOD COUNT 6647165 WBC 7.6 10e9/L 04/06/20 20 Unknown COMPLETE BLOOD COUNT 7777346 RBC 3.90 10e12/L 2019 Unknown COMPLETE BLOOD COUNT 9270048 HEMOGLOBIN 12.0 g/dL 04/06/20 20 Unknown COMPLETE BLOOD COUNT [id number] HEMATOCRIT 36.9 % 04/06/20 20 Unknown COMPLETE BLOOD COUNT [id number] MCV 94.6 fL 0 Unknown COMPLETE BLOOD COUNT 3257856 MCH 30.8 pg 0 Unknown COMPLETE BLOOD COUNT 9132798 MCHC 32.5 g/dL 0 Unknown COMPLETE BLOOD COUNT 1723811 PLATELET COUNT 257 10e9/L 01/2020 Unknown COMPLETE BLOOD COUNT 8250832 Mean Plt Volume 8.6 fL 01/2020 Unknown COMPLETE BLOOD COUNT 1777820 Neut Auto 68.7 % 0 Unknown COMPLETE BLOOD COUNT 2093620 Lymph Auto 22.0 % 04/06/20 20 Unknown COMPLETE BLOOD COUNT 9765550 [place] Auto 8.3 % 0 Unknown COMPLETE BLOOD COUNT 4063477 RDW 12.7 % 0 Unknown COMPLETE BLOOD COUNT 9307009 Eos Auto 0.7 % 0 Unknown COMPLETE BLOOD COUNT 2165442 Baso Auto 0.3 % 0 Unknown COMPLETE BLOOD COUNT 0430984 Neutrophil Abs 5.22 10e9/L Unknown COMPLETE BLOOD COUNT [id number] Lymphocyte Abs 1.67 10e9/L Unknown COMPLETE BLOOD COUNT 0271531 Monocyte Abs 0.63 10e9/L 01/2020 Unknown COMPLETE BLOOD COUNT 8696121 Eosinophil Abs 0.05 10e9/L Unknown COMPLETE BLOOD COUNT 7244464 RDW-SD 42.6 fL 0 Unknown COMPLETE BLOOD COUNT 7174360 Basophil Abs 0.02 10e9/L 01/2020 Unknown PT [id number] PT 19.3 Seconds 04/06/2020 Unknow n PT [id number] INR 1.6 04/06/2020 Unknown COMPREHENSIVE METABOLIC 10866 AST 12 U/L 2019 Unknown COMPREHENSIVE METABOLIC 56932 ALT 7 U/L 2019 Unknown COMPREHENSIVE METABOLIC 36724 BUN 19 mg/dL 2019 Unknown COMPREHENSIVE METABOLIC 71791 ALBUMIN 3.8 g/dL 2019 Unknown COMPREHENSIVE METABOLIC 34759 CHLORIDE 103 mmol/L 04/06 Unknown COMPREHENSIVE METABOLIC 94257 Bili Total 0.4 mg/dL 04/06 Unknown COMPREHENSIVE METABOLIC 20031 ALK PHOS 78 U/L 2019 Unknown COMPREHENSIVE METABOLIC 82355 SODIUM 141 mmol/L 04/06 Unknown COMPREHENSIVE METABOLIC 36081 CREATININE 0.90 mg/dL 01/2020 Unknown COMPREHENSIVE METABOLIC 02033 CALCIUM 9.0 mg/dL 2019 Unknown COMPREHENSIVE METABOLIC 65947 POTASSIUM 3.8 mmol/L 04/06 Unknown COMPREHENSIVE METABOLIC 21589 Total Protein 6.1 g/dL Unknown COMPREHENSIVE METABOLIC 68399 Glucose 125 mg/dL 2019 Unknown COMPREHENSIVE METABOLIC 51814 Bicarbonate 27 mmol/L 01/2020 Unknown COMPREHENSIVE METABOLIC 86897 AGAP 11 mmol/L 2019 Unknown GFR CALC 3545213 GFR Non Afr Amr >60 mL/min 04/06/2020 Un known GFR CALC [id number] GFR Afr Amr >60 mL/min 04/06/2020 Unknow n PT [id number] PT 25.2 Seconds 09/02/2019 Unknow n PT [id number] INR 2.2 09/02/2019 Unknown PT [id number] PT 26.5 Seconds 04/22/2019 Unknow n PT [id number] INR 2.3 04/22/2019 Unknown FERRITIN 49953 FERRITIN 240.3 ng/mL 04/22/2019 Unknown COMPLETE BLOOD COUNT 6109931 WBC 7.7 10e9/L 04/22/20 19 Unknown COMPLETE BLOOD COUNT 6684117 RBC 4.19 10e12/L 2018 Unknown COMPLETE BLOOD COUNT 3241802 HEMOGLOBIN 13.5 g/dL 04/22/20 19 Unknown COMPLETE BLOOD COUNT [id number] HEMATOCRIT 39.6 % 04/22/20 19 Unknown COMPLETE BLOOD COUNT [id number] MCV 94.5 fL 9 Unknown COMPLETE BLOOD COUNT 6696165 MCH 32.2 pg 9 Unknown COMPLETE BLOOD COUNT [id number] MCHC 34.1 g/dL 9 Unknown COMPLETE BLOOD COUNT [id number] PLATELET COUNT 235 10e9/L Unknown COMPLETE BLOOD COUNT [id number] Mean Plt Volume 9.8 fL Unknown COMPLETE BLOOD COUNT [id number] Neut Auto 68.5 % 9 Unknown COMPLETE BLOOD COUNT [id number] Lymph Auto 22.4 % 04/22/20 19 Unknown COMPLETE BLOOD COUNT 7934050 [place] Auto 8.3 % 9 Unknown COMPLETE BLOOD COUNT 4634336 RDW 12.4 % 9 Unknown COMPLETE BLOOD COUNT 7971541 Eos Auto 0.5 % 9 Unknown COMPLETE BLOOD COUNT 0656853 Baso Auto 0.3 % 9 Unknown COMPLETE BLOOD COUNT 2553016 Neutrophil Abs 5.27 10e9/L Unknown COMPLETE BLOOD COUNT 7125217 Lymphocyte Abs 1.72 10e9/L Unknown COMPLETE BLOOD COUNT 2336074 Monocyte Abs 0.64 10e9/L 04/04 Unknown COMPLETE BLOOD COUNT [id number] Eosinophil Abs 0.04 10e9/L Unknown COMPLETE BLOOD COUNT 0780906 RDW-SD 41.6 fL 9 Unknown COMPLETE BLOOD COUNT [id number] Basophil Abs 0.02 10e9/L 04/04 Unknown IRON 83213 Iron 95 ug/dL 04/22/2019 Unknown GFR CALC [id number] GFR Non Afr Amr >60 mL/min 01/05/2019 Un known GFR CALC [id number] GFR Afr Amr >60 mL/min 01/05/2019 Unknow n COMPREHENSIVE METABOLIC 98916 AST 15 U/L 2018 Unknown COMPREHENSIVE METABOLIC 07140 ALT 11 U/L 2018 Unknown COMPREHENSIVE METABOLIC 39687 BUN 16 mg/dL 2018 Unknown COMPREHENSIVE METABOLIC 89149 ALBUMIN 3.9 g/dL 2018 Unknown COMPREHENSIVE METABOLIC 32572 CHLORIDE 106 mmol/L 01/05 Unknown COMPREHENSIVE METABOLIC 67158 Bili Total 0.7 mg/dL 01/05 Unknown COMPREHENSIVE METABOLIC 61852 ALK PHOS 50 U/L 2018 Unknown COMPREHENSIVE METABOLIC 31127 SODIUM 138 mmol/L 01/05 Unknown COMPREHENSIVE METABOLIC 28429 CREATININE 0.74 mg/dL 02/2019 Unknown COMPREHENSIVE METABOLIC 30496 CALCIUM 9.0 mg/dL 2018 Unknown COMPREHENSIVE METABOLIC 33395 POTASSIUM 4.3 mmol/L 01/05 Unknown COMPREHENSIVE METABOLIC 93841 Total Protein 6.4 g/dL Unknown COMPREHENSIVE METABOLIC 37517 Glucose 114 mg/dL 2018 Unknown COMPREHENSIVE METABOLIC 12307 Bicarbonate 26 mmol/L 02/2019 Unknown COMPREHENSIVE METABOLIC 76870 AGAP 6 mmol/L 2018 Unknown COMPLETE BLOOD COUNT [id number] WBC 5.5 10e9/L 01/06/20 19 Unknown COMPLETE BLOOD COUNT [id number] RBC 4.27 10e12/L 2018 Unknown COMPLETE BLOOD COUNT [id number] HEMOGLOBIN 14.0 g/dL 01/06/20 19 Unknown COMPLETE BLOOD COUNT [id number] HEMATOCRIT 40.6 % 01/06/20 19 Unknown COMPLETE BLOOD COUNT [id number] MCV 95.1 fL 9 Unknown COMPLETE BLOOD COUNT [id number] MCH 32.8 pg 9 Unknown COMPLETE BLOOD COUNT [id number] MCHC 34.5 g/dL 9 Unknown COMPLETE BLOOD COUNT [id number] PLATELET COUNT 211 10e9/L 02/2019 Unknown COMPLETE BLOOD COUNT [id number] Mean Plt Volume 9.8 fL 02/2019 Unknown COMPLETE BLOOD COUNT [id number] Neut Auto 64.7 % 9 Unknown COMPLETE BLOOD COUNT [id number] Lymph Auto 24.3 % 01/06/20 19 Unknown COMPLETE BLOOD COUNT [id number] [place] Auto 9.7 % 9 Unknown COMPLETE BLOOD COUNT [id number] RDW 12.2 % 9 Unknown COMPLETE BLOOD COUNT [id number] Eos Auto 1.1 % 9 Unknown COMPLETE BLOOD COUNT [id number] Baso Auto 0.2 % 9 Unknown COMPLETE BLOOD COUNT [id number] Neutrophil Abs 3.56 10e9/L Unknown COMPLETE BLOOD COUNT [id number] Lymphocyte Abs 1.34 10e9/L Unknown COMPLETE BLOOD COUNT [id number] Monocyte Abs 0.53 10e9/L 02/2019 Unknown COMPLETE BLOOD COUNT [id number] Eosinophil Abs 0.06 10e9/L Unknown COMPLETE BLOOD COUNT [id number] RDW-SD 41.3 fL 9 Unknown COMPLETE BLOOD COUNT [id number] Basophil Abs 0.01 10e9/L 02/2019 Unknown LIPID GROUP 11996 Cholesterol 145 mg/dL 01/05/2019 Unkno wn LIPID GROUP 10608 Triglyceride 153 mg/dL 01/05/2019 Unkn own LIPID GROUP 17019 HDL CHOLESTEROL 39 mg/dL 01/05/2019 U nknown LIPID GROUP 13670 Chol/HDL Ratio 3.72 ratio 01/05/2019 U nknown LIPID GROUP 43858 NON-HDL Chol 106 mg/dL 01/05/2019 Unkn own LIPID GROUP 15370 LDL Cholesterol 75 mg/dL 01/05/2019 U nknown PT [id number] PT 30.5 Seconds 12/15/2018 Unknow n PT [id number] INR 2.9 12/15/2018 Unknown PT [id number] PT 17.2 Seconds 09/08/2018 Unknow n PT [id number] INR 1.4 09/08/2018 Unknown LIPID GROUP 17484 Cholesterol 190 mg/dL 07/08/2018 Unkno wn LIPID GROUP 18030 Triglyceride 402 mg/dL 07/08/2018 Unkn own LIPID GROUP 08727 HDL CHOLESTEROL 36 mg/dL 07/08/2018 U nknown LIPID GROUP 69973 Chol/HDL Ratio 5.28 ratio 07/08/2018 U nknown LIPID GROUP 01923 NON-HDL Chol 154 mg/dL 07/08/2018 Unkn own LIPID GROUP 27931 LDL Cholesterol N/A Trig >400 018 Unknown GFR CALC 6602260 GFR Non Afr Amr >60 mL/min 07/08/2018 Un known GFR CALC 1260511 GFR Afr Amr >60 mL/min 07/08/2018 Unknow n COMPLETE BLOOD COUNT [id number] WBC 5.0 10e9/L 07/08/20 18 Unknown COMPLETE BLOOD COUNT [id number] RBC 4.08 10e12/L 2017 Unknown COMPLETE BLOOD COUNT [id number] HEMOGLOBIN 13.3 g/dL 07/08/20 18 Unknown COMPLETE BLOOD COUNT [id number] HEMATOCRIT 38.6 % 07/08/20 18 Unknown COMPLETE BLOOD COUNT [id number] MCV 94.6 fL 8 Unknown COMPLETE BLOOD COUNT [id number] MCH 32.6 pg 8 Unknown COMPLETE BLOOD COUNT 8366833 MCHC 34.5 g/dL 8 Unknown COMPLETE BLOOD COUNT [id number] PLATELET COUNT 205 10e9/L 02/2018 Unknown COMPLETE BLOOD COUNT 1373289 Mean Plt Volume 9.8 fL 02/2018 Unknown COMPLETE BLOOD COUNT [id number] Neut Auto 52.8 % 8 Unknown COMPLETE BLOOD COUNT 2765140 Lymph Auto 33.2 % 07/08/20 18 Unknown COMPLETE BLOOD COUNT 5152016 [place] Auto 11.6 % 8 Unknown COMPLETE BLOOD COUNT 0909953 RDW 12.5 % 8 Unknown COMPLETE BLOOD COUNT 0369777 Eos Auto 2.0 % 8 Unknown COMPLETE BLOOD COUNT 5295957 Baso Auto 0.4 % 8 Unknown COMPLETE BLOOD COUNT [id number] Neutrophil Abs 2.64 10e9/L Unknown COMPLETE BLOOD COUNT [id number] Lymphocyte Abs 1.66 10e9/L Unknown COMPLETE BLOOD COUNT [id number] Monocyte Abs 0.58 10e9/L 02/2018 Unknown COMPLETE BLOOD COUNT [id number] Eosinophil Abs 0.10 10e9/L Unknown COMPLETE BLOOD COUNT [id number] RDW-SD 41.8 fL 8 Unknown COMPLETE BLOOD COUNT [id number] Basophil Abs 0.02 10e9/L 02/2018 Unknown PT [id number] PT 32.9 Seconds 07/08/2018 Unknow n PT [id number] INR 3.2 07/08/2018 Unknown PT [id number] PT TNP:Duplicate Order 8 Unknown PT [id number] INR TNP:Duplicate Order 8 Unknown COMPREHENSIVE METABOLIC 42438 AST TNP:Duplicate Or grace 07/08/2018 Unknown COMPREHENSIVE METABOLIC 53047 ALT TNP:Duplicate Or grace 07/08/2018 Unknown COMPREHENSIVE METABOLIC 38263 BUN TNP:Duplicate Or grace 07/08/2018 Unknown COMPREHENSIVE METABOLIC 52655 ALBUMIN TNP:Duplicate Or grace 07/08/2018 Unknown COMPREHENSIVE METABOLIC 04713 CHLORIDE TNP:Duplicate Or grace 07/08/2018 Unknown COMPREHENSIVE METABOLIC 35482 Bili Total TNP:Duplicate O rder 07/08/2018 Unknown COMPREHENSIVE METABOLIC 75811 ALK PHOS TNP:Duplicate Or grace 07/08/2018 Unknown COMPREHENSIVE METABOLIC 18906 SODIUM TNP:Duplicate Or grace 07/08/2018 Unknown COMPREHENSIVE METABOLIC 32405 CREATININE TNP:Duplicate O rder 07/08/2018 Unknown COMPREHENSIVE METABOLIC 65627 CALCIUM TNP:Duplicate Or grace 07/08/2018 Unknown COMPREHENSIVE METABOLIC 75348 POTASSIUM TNP:Duplicate Or grace 07/08/2018 Unknown COMPREHENSIVE METABOLIC 63787 Total Protein TNP:Duplicat e Order 07/08/2018 Unknown COMPREHENSIVE METABOLIC 81638 Glucose TNP:Duplicate Or grace 07/08/2018 Unknown COMPREHENSIVE METABOLIC 51793 Bicarbonate TNP:Duplicate Order 07/08/2018 Unknown COMPREHENSIVE METABOLIC 61242 AGAP TNP:Duplicate Or grace 07/08/2018 Unknown COMPREHENSIVE METABOLIC 22930 AST 17 U/L 2017 Unknown COMPREHENSIVE METABOLIC 01612 ALT 12 U/L 2017 Unknown COMPREHENSIVE METABOLIC 74586 BUN 20 mg/dL 2017 Unknown COMPREHENSIVE METABOLIC 28407 ALBUMIN 4.0 g/dL 2017 Unknown COMPREHENSIVE METABOLIC 25043 CHLORIDE 107 mmol/L 07/08 Unknown COMPREHENSIVE METABOLIC 47675 Bili Total 0.3 mg/dL 07/08 Unknown COMPREHENSIVE METABOLIC 94812 ALK PHOS 58 U/L 2017 Unknown COMPREHENSIVE METABOLIC 90930 SODIUM 139 mmol/L 07/08 Unknown COMPREHENSIVE METABOLIC 21788 CREATININE 0.72 mg/dL 02/2018 Unknown COMPREHENSIVE METABOLIC 66542 CALCIUM 7.8 mg/dL 2017 Unknown COMPREHENSIVE METABOLIC 72363 POTASSIUM 4.1 mmol/L 07/08 Unknown COMPREHENSIVE METABOLIC 03774 Total Protein 6.2 g/dL Unknown COMPREHENSIVE METABOLIC 49929 Glucose 107 mg/dL 2017 Unknown COMPREHENSIVE METABOLIC 90813 Bicarbonate 22 mmol/L 02/2018 Unknown COMPREHENSIVE METABOLIC 27183 AGAP 10 mmol/L 2017 Unknown GFR CALC 7653723 GFR Non Afr Amr >60 mL/min 11/28/2017 Un known GFR CALC 9651505 GFR Afr Amr >60 mL/min 11/28/2017 Unknow n THYROID STIMULATING HORMONE 92314 TSH 4.029 uIU/mL 11/28/2017 Unknown LIPID GROUP 75305 Cholesterol 181 mg/dL 11/28/2017 Unkno wn LIPID GROUP 30190 Triglyceride 193 mg/dL 11/28/2017 Unkn own LIPID GROUP 87377 HDL CHOLESTEROL 36 11/28/2017 U nknown LIPID GROUP 18504 Chol/HDL Ratio 5.03 ratio 11/28/2017 U nknown LIPID GROUP 04129 NON-HDL Chol 145 mg/dL 11/28/2017 Unkn own LIPID GROUP 77428 LDL Cholesterol 106 mg/dL 11/28/2017 U nknown PT 6741588 PT 22.2 Seconds 11/28/2017 Unknow n PT 7836974 INR 2.0 11/28/2017 Unknown COMPREHENSIVE METABOLIC 44781 AST 19 U/L 2017 Unknown COMPREHENSIVE METABOLIC 43021 ALT 16 U/L 2017 Unknown COMPREHENSIVE METABOLIC 96838 BUN 22 mg/dL 2017 Unknown COMPREHENSIVE METABOLIC 76287 ALBUMIN 4.1 g/dL 2017 Unknown COMPREHENSIVE METABOLIC 04762 CHLORIDE 108 mmol/L 11/28 Unknown COMPREHENSIVE METABOLIC 39031 Bili Total 0.5 mg/dL 11/28 Unknown COMPREHENSIVE METABOLIC 31715 ALK PHOS 53 U/L 2017 Unknown COMPREHENSIVE METABOLIC 02760 SODIUM 141 mmol/L 11/28 Unknown COMPREHENSIVE METABOLIC 86162 CREATININE 0.83 mg/dL 11/05 Unknown COMPREHENSIVE METABOLIC 27261 CALCIUM 9.1 mg/dL 2017 Unknown COMPREHENSIVE METABOLIC 57183 POTASSIUM 4.6 mmol/L 11/28 Unknown COMPREHENSIVE METABOLIC 41991 Total Protein 6.5 g/dL Unknown COMPREHENSIVE METABOLIC 07416 Glucose 106 mg/dL 2017 Unknown COMPREHENSIVE METABOLIC 02422 Bicarbonate 26 mmol/L 11/05 Unknown COMPREHENSIVE METABOLIC 25382 AGAP 7 mmol/L 2017 Unknown COMPLETE BLOOD COUNT 9457359 WBC 5.1 10e9/L 11/28/19 18 Unknown COMPLETE BLOOD COUNT 0330318 RBC 4.22 10e12/L 2017 Unknown COMPLETE BLOOD COUNT 2838535 HEMOGLOBIN 13.5 g/dL 11/28/19 18 Unknown COMPLETE BLOOD COUNT 7127863 HEMATOCRIT 39.1 % 11/28/19 18 Unknown COMPLETE BLOOD COUNT 1829306 MCV 92.7 fL 8 Unknown COMPLETE BLOOD COUNT 3284576 MCH 32.0 pg 8 Unknown COMPLETE BLOOD COUNT 2518430 MCHC 34.5 g/dL 8 Unknown COMPLETE BLOOD COUNT 8481699 PLATELET COUNT 226 10e9/L Unknown COMPLETE BLOOD COUNT 5204548 Mean Plt Volume 9.6 fL Unknown COMPLETE BLOOD COUNT 3103461 Neut Auto 49.5 % 8 Unknown COMPLETE BLOOD COUNT 6786418 Lymph Auto 35.3 % 11/28/19 18 Unknown COMPLETE BLOOD COUNT 6200162 [place] Auto 12.4 % 8 Unknown COMPLETE BLOOD COUNT 5910723 RDW 12.4 % 8 Unknown COMPLETE BLOOD COUNT 9559471 Eos Auto 2.2 % 8 Unknown COMPLETE BLOOD COUNT 8099429 Baso Auto 0.6 % 8 Unknown COMPLETE BLOOD COUNT 5915220 Neutrophil Abs 2.52 10e9/L Unknown COMPLETE BLOOD COUNT 3757794 Lymphocyte Abs 1.80 10e9/L Unknown COMPLETE BLOOD COUNT 7525012 Monocyte Abs 0.63 10e9/L 11/05 Unknown COMPLETE BLOOD COUNT 9461101 Eosinophil Abs 0.11 10e9/L Unknown COMPLETE BLOOD COUNT 5017425 RDW-SD 41.2 fL 8 Unknown COMPLETE BLOOD COUNT [id number] Basophil Abs 0.03 10e9/L 11/05 Unknown Procedures Procedure Codes Date SARSCOV & INF VIR A&B AG IA CPT-4: 73929 10/04/2021 FLU VACC PRSV FREE INC ANTIG 65 AND OLDER CPT-4: 77068 08/18/2021 FLU VACC PRSV FREE INC ANTIG 65 AND OLDER CPT-4: 18265 08/18/2021 ADMIN INFLUENZA VIRUS VAC CPT-4: G0008 08/18/2021 ROUTINE VENIPUNCTURE CPT-4: 49049 07/05/2021 PROTHROMBIN TIME CPT-4: 12039 07/05/2021 PPPS, subseq visit CPT-4: G0439 10/12/2020 ROUTINE VENIPUNCTURE CPT-4: 70309 04/06/2020 COMPREHEN METABOLIC PANEL CPT-4: 23980 04/06/2020 COMPLETE CBC W/AUTO DIFF WBC CPT-4: 58044 04/06/2020 PROTHROMBIN TIME CPT-4: 60004 04/06/2020 PPPS, subseq visit CPT-4: G0439 09/02/2019 ROUTINE VENIPUNCTURE CPT-4: 05298 09/02/2019 PROTHROMBIN TIME CPT-4: 73053 09/02/2019 FLU VACC PRSV FREE INC ANTIG 65 AND OLDER CPT-4: 58634 08/20/2018 PNEUMOCOCCAL VACC 23 BRIDGET IM CPT-4: 41141 08/20/2018 ADMIN INFLUENZA VIRUS VAC CPT-4: G0008 08/20/2018 ADMIN PNEUMOCOCCAL VACCINE CPT-4: G0009 08/20/2018 PPPS, subseq visit CPT-4: G0439 11/27/2017 FLU VACC PRSV FREE INC ANTIG 65 AND OLDER CPT-4: 05043 08/14/2017 PNEUMOCOCCAL VACC 13 BRIDGET IM CPT-4: 98937 08/14/2017 ADMIN INFLUENZA VIRUS VAC CPT-4: G0008 08/14/2017 ADMIN PNEUMOCOCCAL VACCINE CPT-4: G0009 08/14/2017 FLU VACC PRSV FREE INC ANTIG 65 AND OLDER CPT-4: 15758 10/03/2016 ADMIN INFLUENZA VIRUS VAC CPT-4: G0008 10/03/2016 PPPS, subseq visit CPT-4: G0439 10/10/2015 FLUZONE, 5ML (Medicare) CPT-4: Q2038 09/01/2014 ADMIN INFLUENZA VIRUS VAC CPT-4: G0008 09/01/2014 Vital Signs Date Vital 07/05/2021 Blood Pressure 1: 122/80 Code: 8480-6 Heart Rate 1: 92 bpm Respiratory Rate: 20 bpm SpO2: 96% Temperature: 36.8 (C) / 98.2 (F) We ight: 207 lbs Code: 15832-6 04/26/2021 Blood Pressure 1: 126/82 Code: 8480-6 Heart Rate 1: 104 bpm Respiratory Rate: 20 bpm SpO2: 96% Temperature: 36.7 (C) / 98.1 (F) We ight: 212 lbs Code: 36079-5 10/12/2020 Blood Pressure 1: 104/68 Code: 8480-6 BMI: 31.6 Code: 06017-6 Heart Rate 1: 96 bpm Height: 5'7" Code: 8302-2 Respiratory Rate: 20 bpm SpO2: 95% Temperature: 36.9 (C) / 98.5 (F) Weight: 202 lbs Code: 50435-2 07/13/2020 Blood Pressure 1: 128/72 Code: 8480-6 Heart Rate 1: 76 bpm Respiratory Rate: 18 bpm SpO2: 97% Temperature: 36.3 (C) / 97.3 (F) We ight: 190 lbs Code: 42323-1 04/06/2020 Blood Pressure 1: 106/68 Code: 8480-6 BMI: 29.1 Code: 40690-5 Heart Rate 1: 96 bpm Height: 5'7" Code: 8302-2 Respiratory Rate: 20 bpm SpO2: 96% Temperature: 36.8 (C) / 98.2 (F) Weight: 186 lbs Code: 73875-3 09/02/2019 Blood Pressure 1: 94/50 Code: 8480-6 BMI: 29.8 C ode: 64383-1 Heart Rate 1: 68 bpm Height: 5'7" Code: 8302-2 Respiratory Rate: 20 bpm SpO2: 96% Temperature: 36.6 (C) / 97.9 (F) Weight: 190 lbs Code: 94645-0 07/01/2019 Blood Pressure 1: 112/60 Code: 8480-6 Heart Rate 1: 88 bpm Respiratory Rate: 20 bpm SpO2: 94% Temperature: 36.8 (C) / 98.2 (F) We ight: 201 lbs Code: 80820-6 05/27/2019 Blood Pressure 1: 104/50 Code: 8480-6 Heart Rate 1: 62 bpm SpO2: 95% Temperature: 36.3 (C) / 97.4 (F) Weight: 204 lbs Code: 78931-2 04/22/2019 Blood Pressure 1: 112/72 Code: 8480-6 Heart Rate 1: 64 bpm Respiratory Rate: 20 bpm SpO2: 95% Temperature: 36.8 (C) / 98.2 (F) We ight: 207 lbs Code: 87130-5 02/09/2019 Blood Pressure 1: 104/60 Code: 8480-6 Heart Rate 1: 72 bpm Respiratory Rate: 20 bpm SpO2: 95% Temperature: 37.1 (C) / 98.8 (F) We ight: 216 lbs Code: 26058-3 01/07/2019 Blood Pressure 1: 122/74 Code: 8480-6 Heart Rate 1: 96 bpm Respiratory Rate: 20 bpm SpO2: 96% Temperature: 36.7 (C) / 98.1 (F) We ight: 219 lbs Code: 67026-7 07/09/2018 Blood Pressure 1: 118/65 Code: 8480-6 Heart Rate 1: 62 bpm SpO2: 94% Temperature: 36.2 (C) / 97.1 (F) Weight: 237 lbs Code: 64497-2 11/27/2017 Blood Pressure 1: 124/70 Code: 8480-6 BMI: 35.2 Code: 17401-7 Heart Rate 1: 64 bpm Height: 5'8" Code: 8302-2 Respiratory Rate: 20 bpm SpO2: 94% Temperature: 36.9 (C) / 98.5 (F) Weight: 235 lbs Code: 07342-1 10/10/2015 Blood Pressure 1: 126/78 Code: 8480-6 BMI: 36.0 Code: 41731-1 Heart Rate 1: 72 bpm Height: 5'8" Code: 8302-2 Respiratory Rate: 20 bpm Temperatu re: 36.9 (C) / 98.4 (F) Weight: 240 lbs Code: 81051-5 09/01/2014 Blood Pressure 1: 114/70 Code: 8480-6 BMI: 35.4 Code: 22211-7 Heart Rate 1: 76 bpm Height: 5'8" Code: 8302-2 Respiratory Rate: 20 bpm Temperatu re: 36.7 (C) / 98.1 (F) Weight: 236 lbs Code: 26637-9 07/02/2013 Blood Pressure 1: 124/90 Code: 8480-6 BMI: 33.7 Code: 15810-5 Heart Rate 1: 76 bpm Height: 5'8" Code: 8302-2 Respiratory Rate: 20 bpm Temperatu re: 36.6 (C) / 97.8 (F) Weight: 225 lbs Code: 49569-6 06/25/2012 Blood Pressure 1: 144/100 Code: 8480-6 BMI: 34.5 Code: 41801-4 Heart Rate 1: 76 bpm Height: 5'8" Code: 8302-2 Respiratory Rate: 20 bpm Temperatu re: 36.6 (C) / 97.9 (F) Weight: 230 lbs Code: 73658-9 05/15/2012 Blood Pressure 1: 112/70 Code: 8480-6 BMI: 34.6 Code: 75368-9 Heart Rate 1: 76 bpm Height: 5'8" Code: 8302-2 Respiratory Rate: 20 bpm Temperatu re: 37.0 (C) / 98.6 (F) Weight: 231 lbs Code: 10138-1 12/06/2011 Blood Pressure 1: 142/90 Code: 8480-6 BMI: 35.4 Code: 36646-7 Heart Rate 1: 72 bpm Height: 5'8" Code: 8302-2 Respiratory Rate: 20 bpm Temperatu re: 36.9 (C) / 98.4 (F) Weight: 236 lbs Code: 38108-3 10/30/2010 Blood Pressure 1: 114/78 Code: 8480-6 Heart Rate 1: 76 bpm Temperature: 36.3 (C) / 97.4 (F) Weight: 228 lbs Code: 33660-5 Functional Status No Functional Status data Reason [...] F02.80] Diagnosis: Alzheimer's dementia[ICD10: G30.9] Roxie Lopez [facility] CPT-4: 88816 10/05/2021 ([id number]) NURSE/OUTPATIENT VISIT EST Diagnosis: Cough[ICD10: R05.9] Diagnosis: Exposure to COVID-19 virus[ICD10: Z20.822] Roxie LOPEZ DO [facility] CPT-4: 13235 10/04/2021 ([id number]) NURSE/OUTPATIENT VISIT EST Diagnosis: FLU VACCINE[ICD10: Z23] Roxie MOSQUERA DO [facility] CPT-4: 46146 08/18/2021 ([id number]) OFFICE/OUTPATIENT VISIT EST Diagnosis: Parkinson disease[ICD10: G20] Diagnosis: emt intermediate (current) use of anticoagulants[ICD10: Z79.01] Roxie LOPEZ DO [facility] CPT-4: 91265 07/05/2021 ([id number]) OFFICE/OUTPATIENT VISIT EST Diagnosis: Parkinson disease[ICD10: G20] Diagnosis: Dementia[ICD10: F03.90] Roxie MOSQUERA [employer] [facility] CPT-4: 80484 04/26/2021 ([id number]) OFFICE/OUTPATIENT VISIT EST Diagnosis: 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] Diagnosis: 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: G30.9] Roxie LOPEZ DO [facility] CPT-4: 41333 07/13/2020 ([id number]) OFFICE/OUTPATIENT VISIT EST Diagnosis: Alzheimer's disease, unspecified[ICD10: G30.9] Roxie LOPEZ DO [facility] CPT-4: 21614 04/06/2020 ([id number]) OFFICE/OUTPATIENT VISIT EST Diagnosis: Alzheimer's disease with late onset[ICD10: G30.1] Diagnosis: Generalized anxiety disorder[ICD10: F41.1] Diagnosis: Unspecified dementia with behavioral disturbance[ICD10: F03.91] Roxie LOPEZ DO [facility] CPT-4: 75664 07/01/2019 ([id number]) OFFICE/OUTPATIENT VISIT EST Diagnosis: Alzheimer's disease with late onset[ICD10: G30.1] Diagnosis: Abnormal weight loss[ICD10: R63.4] Diagnosis: Essential (primary) hypertension[ICD10: I10] Diagnosis: Melena[ICD10: K92.1] Diagnosis: Unspecified dementia with behavioral disturbance[ICD10: F03.91] Diagnosis: Spontaneous ecchymoses[ICD10: R23.3] Roxie ROCHE RmDiane BRAYDON [employer] 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 CPT-4: 70110 01/07/2019 ([id number]) NURSE/OUTPATIENT VISIT EST Diagnosis: FLU VACCINE[ICD10: Z23] Diagnosis: PNEUMOCOCCAL VACCINE[ICD10: Z23] Roxie FAUSTIN RmDiane JULIO [employer] [facility] CPT-4: 00080 08/20/2018 ([id number]) OFFICE/OUTPATIENT VISIT EST Diagnosis: Mixed hyperlipidemia[ICD10: E78.2] Diagnosis: Essential (primary) hypertension[ICD10: I10] Diagnosis: Alzheimer's disease, unspecified[ICD10: G30.9] Roxie LOPEZ [facility] CPT-4: 48189 07/09/2018 ([id number]) OFFICE/OUTPATIENT VISIT EST Diagnosis: PNEUMOCOCCAL VACCINE[ICD10: Z23] Diagnosis: FLU VACCINE[ICD10: Z23] Roxie BRYSON [facility] CPT-4: 23960 08/14/2017 ([id number]) OFFICE/OUTPATIENT VISIT EST Diagnosis: FLU VACCINE[ICD10: Z23] Roxie BRYSON [facility] CPT-4: 10654 10/03/2016 ([id number]) OFFICE/OUTPATIENT VISIT EST Diagnosis: HYPERTENSION[ICD9: 401.9] Diagnosis: HYPERLIPIDEMIA NEC/NOS[ICD9: 272.4] Diagnosis: MEMORY LOSS[ICD9: 780.93] Diagnosis: - I - ANXIETY STATE NOS[ICD9: 300.00] Diagnosis: FLU VACCINE[ICD10: Z23] Roxie BRYSON [facility] CPT-4: 90396 09/01/2014 OFFICE/OUTPATIENT VISIT EST Diagnosis: HYPERTENSION[ICD9: 401.9] Diagnosis: CAD[ICD9: 414.00] Diagnosis: HYPERLIPIDEMIA NEC/NOS[ICD9: 272.4] Diagnosis: MEMORY LOSS[ICD9: 780.93] Diagnosis: ANXIETY STATE NOS[ICD9: 300.00] Diagnosis: Testicular pain[ICD9: 608.9] Roxie LOPEZ [facility] CPT-4: 40992 07/02/2013 ([id number]) OFFICE/OUTPATIENT VISIT EST Diagnosis: MEMORY LOSS[ICD9: 780.93] [facility] CPT-4: 20729 06/25/2012 ([id number]) OFFICE/OUTPATIENT VISIT EST Diagnosis: HYPERLIPIDEMIA NEC/NOS[ICD9: 272.4] Diagnosis: HYPERTENSION[ICD9: 401.9] Diagnosis: CAD[ICD9: 414.00] Diagnosis: MEMORY LOSS[ICD9: 780.93] Roxie THOMPSON NDER [facility] CPT-4: 10835 05/15/2012 PER PM REEVAL EST PAT 65+ YR Diagnosis: ROUTINE MEDICAL EXAM[ICD9: V70.0] Diagnosis: HYPERLIPIDEMIA NEC/NOS[ICD9: 272.4] Diagnosis: HYPERTENSION[ICD9: 401.9] Diagnosis: CAD[ICD9: 414.00] Diagnosis: Seborrheic dermatitis[ICD9: 690.10] Roxie PERRY Krish LOPEZ [employer] CPT-4: 45319 12/06/2011 ([id number]) OFFICE/OUTPATIENT VISIT, EST Roxie GENTILE RmDiane JULIO [employer] CPT-4: 86048 10/30/2010 Plan of Care Planned Activity Notes Codes Status Date Visit Diagnosis Plan: COVID-19 Discussion: Telemed dox y.nd video visit done with COVID positive and [...] F02.80 10/05/2021 [facility]ment[facility] [phone] [id number] [facility] 10/04/2021 Appointment[facility] [phone] [id number] [facility] 08/18/2021 Visit Diagnosis Plan: Parkinson disease Discussion: In crease sinemet 25/100mg 2po BID Call in 1month ICD-9 : 332.0 ICD-10 : G20 07/05/2021 Visit Diagnosis Plan: emt intermediate (current) use of antic oagulants Discussion: PT/INR drawn ICD-9 : V58.61 ICD-10 : Z79.01 07/05/2021 Appointment: Roxie Lopeztel: [address] [place] [address] US FOLLOW UP 07/05/2021 Visit Diagnosis Plan: Parkinson disease Discussion: Tr ial of sinemet 25/100mg po BID Fwup 2mos ICD-9 : 332.0 ICD-10 : G20 04/26/2021 Appointment: Roxie Lopez WPtel: [address] [place], [place] [phone] US FOLLOW UP 04/26/2021 Appointment: Roxie Lopez WPtel: [address] [place] [address] US CANCELED 01/11/2021 Visit Diagnosis Plan: Encounter for [facility] adult medical examination without abnormal findings [...] ICD-10 : G30.1 10/12/2020 Visit Diagnosis Plan: nursing home (current) use of antic oagulants Discussion: Update PT/INR ICD-9 : V58.61 ICD-10 : Z79.01 10/12/2020 Appointment: Roxie Lopez WPtel: [address] [place], [place] [phone] US Annual Well Visit 10/12/2020 Visit Diagnosis [...] : F02.81 07/13/2020 Appointment: Roxie Lopez WPtel: [address] [place], [place] [phone] US FOLLOW UP 07/13/2020 Care Plan: PT Pending 06/27/2020 Visit Diagnosis Plan: Alzheimer's disease, unspecified Discussion: Worsening has started OTC supplements Inquiring about meals on wheels Follow Up: 3 months ICD-9 : 331.0 ICD-10 : G30.9 04/06/2020 Appointment: Roxie Lopez WPtel: [address] [place], [place] [phone] [place] FOLLOW UP 04/06/2020 Care Plan: Referral Order SNOMED-CT : [id number] Pending 04/06/2020 Appointment: Roxie Lopez WPtel: [address] [place], [place] [phone] [place] RESCHEDULED 02/24/2020 Care Plan: COMPREHEN METABOLIC PANEL [place] : 17485-5 Pending 12/14/2019 Care Plan: LIPID PANEL LOINC : 83780-3 Pending 12/14/2019 Care Plan: PT Pending 12/14/2019 [...] : Z51.81 09/02/2019 Appointment: Roxie Lopez WPtel: [address] [place], [place] [phone] [place] originally 2 mo follow up Annual Well Visit 08/06 Visit Diagnosis Plan: Generalized anxiety disorder Dis cussion: Depakote already helping Follow Up: 2 months ICD-9 : 300.00 ICD-10 : F41.1 07/01/2019 Appointment: Roxie Lopez WPtel: [address] [place], [place] [id number] [place] FOLLOW UP 07/01/2019 Visit Diagnosis Plan: [...] : K92.1 05/27/2019 Appointment: Roxie Lopez WPtel: [address] [place], [place] [phone] US FOLLOW UP 05/27/2019 Visit Diagnosis Plan: [...] : F51.04 04/22/2019 Appointment: Roxie Lopez WPtel: [address] [place], [place] [phone] [place] FOLLOW UP 04/22/2019 Visit Diagnosis Plan: [...] K59.01 02/09/2019 Appointment: Roxie Lopez WPtel: [phone] [id number] FOLLOW UP 02/09/2019 Patient Education: escitalopram oxalate- [employer] [id number] Completed 02/09/2019 Patient Education: doxepin- [employer] [id number] Completed 02/09/2019 Visit Diagnosis Plan: Nocturia Discussion: [...] F51.04 01/07/2019 [facility] [phone] [id number] [place] [facility] 01/07/2019 Patient Education: tamsulosin- [employer] [id number] Completed 01/07/2019 Patient Education: doxepin- [employer] [id number] Completed 01/07/2019 Care Plan: COMPREH[place] METABOLIC [place]EL [place] : 05493-7 Pending 12/17/2018 Care Plan: CBC Pending 12/17/2018 Care Plan: LIPID PANEL LOINC : 47821-4 Pending 12/17/2018 Appointment: Roxie Lopez WPtel: [address] [place], [place] [phone] [place] INJECTION 08/20/2018 Patient Education: Patient Medication [...] : I10 07/09/2018 Appointment: Roxie Lopez WPtel: [address] [place] [address] FOLLOW UP 07/09/2018 Patient Education: Patient Medication Summary Completed 07/09/2018 Visit Diagnosis Plan: Generalized anxiety disorder Dis cussion: Add lexapro 10mg q HS ICD-9 : 300.00 ICD-10 : F41.1 11/27/2017 Visit Diagnosis Plan: Alzheimer's disease, unspecified Discussion: Change Namenda XR to Namenda 10mg po BI Follow Up: 3 months ICD-9 : 331.0 ICD-10 : G30.9 11/27/2017 Visit Diagnosis Plan: Encounter for [facility] adult medical examination without abnormal findings Discussion: Update fasting lab ICD-9 : V70.0 ICD-10 : Z00.00 11/27/2017 Appointment: Roxie Lopez WPtel: [facility] [place][note 3][address] Annual Well Visit 11/27/2017 Patient Education: Patient Medication Summary Completed 11/27/2017 Patient Education: Patient Medication Summary Completed 11/14/2017 Care Plan: CBC Pending 11/14/2017 Care Plan: PT Pending 11/14/2017 Care Plan: COMPREH[place] : [id number] Pending 11/14/2017 Care Plan: LIPID PANEL LOINC : [id number] Pending 11/14/2017 Care Plan: ASSAY THYROID STIM HORMONE [place] 11/14/2017 Appointment: Roxie Lopez WPtel: [address] [place], [place] [phone] US INJECTION 08/14/2017 Patient Education: Patient Medication Summary Completed 08/14/2017 Appointment: Roxie Lopez WPtel: [address] [place], [place] [phone] [place] INJECTION 10/03/2016 Patient Education: Patient Medication Summary Completed 10/03/2016 Patient Education: Patient Medication Summary Completed 01/02/2016 Care Plan: CBC Ordered 01/02/2016 Visit Plan: Check fasting lab with next PT/INR Continue current meds Discussed trial of PPI but states gaviscon works if will take so will just try it 10/10/2015 Appointment: Roxie Lopez WPtel: [address] [place] [address] 10/07/15 appt confirmed cn Annual Well Visit 05/2015 Patient Education: Patient Medication Summary Completed 10/10/2015 Appointment: Roxie Lopez WPtel: [address] [place], [place] [id number] 08/31 no answer cell # 08/31 vm 2nd # FOLLOW UP 09/01/2014 Patient Education: Patient Medication Summary Completed 09/01/2014 Patient Education: Patient Medication Summary Completed 08/23/2014 Visit Plan: Lab discussed Check testicul ar US Change namenda to Namenda XR 23mg QD Check PSA 07/02/2013 Appointment: Roxie Lopez WPtel: [address] [place] [address] ACUTE ILLNESS 07/02/2013 Patient Education: Patient Medication Summary Completed 07/02/2013 Visit Plan: Continue namenda 10mg po BID Discussed aricept 06/25/2012 Appointment: Roxie Lopez WPtel: [address] [place] [address] US confirmed w ACUTE ILLNESS 06/25/2012 Patient Education: Patient Medication Summary Completed 06/25/2012 Appointment: Roxie Lopez WPtel: [address] [place] [address] FOLLOW UP 05/15/2012 Patient Education: Patient Medication Summary Completed 05/15/2012 Visit Plan: Continue current meds Lab di scussed Long discussion about meds, diet, exercise and weight loss for decreasing TG and elevating HDL Add Nystatin/TAC cream to use prn 12/06/2011 Appointment: Roxie Lopez WPtel: [address] [place] [address] CHECK UP 12/06/2011 Patient Education: Patient Medication Summary Completed 12/06/2011 Visit Plan: Check fasting lab--CMP, lipi ds, PSA, PT/INR Loan deferment paperwork filled out 10/30/2010 Appointment: Roxie Lopez WPtel: [address] [place] [address] ESTABLISHED PATIENT 10/30/2010 Patient Education: Patient Medication Summary Completed 10/30/2010 Referral: Angeline Arellano WPtel: [address] [place] [address] Referral Appointment Requested Instructions Comment . Check [...]
--- OUTSIDE RECORDS SUMMARY | 2021-10-12 10:15 | XMS REPORT | CCD ---
Author Author Ronnie Lopez D.O. Organization [facility] Address [address] [place] [address] Phone Care Team Providers Care Tank Setter Helper Name Role Phone Arlyn Lopez D.O., PP Unavailable CCM Unavailable Summary Purpose Interface Exchange Insurance Providers Payer name Policy type / Coverage type Covered democrat ID Effective Begin Date Effective End Date [employer] Medicare [id number] Unknown Family History Family History data not found Social History Social History Element Codes Description Effective Dates Marital status Unknown 12/06/[address]: 9701829 Former smoker 2000 12/06/2011 Allergies, Adverse Reactions, Alerts Substance Reaction Codes Entered Date Inactivated Date Status * NO KNOWN FOOD ALLERGIES Unknown 10/30/2010 No Inactiv e Date Active PENICILLINS Unknown 10/30/2010 No Inactive Date Active * NO KNOWN ENVIRONMENTAL ALLERGIES Unknown 10/30/2010 N o Inactive Date Active Problems Condition Codes Effective Dates Condition Status Cough ICD-10: R05.9 ICD-9: 786.2 10/04/2021 Active Exposure to COVID-19 virus ICD-10: Z20.822 ICD-9: V01.79 10/04/2021 Active FLU VACCINE ICD-10: Z23 ICD-9: V04.81 10/02/2016 Active alf (current) use of anticoagulants ICD-10: Z79. 01 ICD-9: V58.61 06/27/2020 Active Parkinson disease ICD-10: G20 ICD-9: 332.0 04/26/2021 Active Dementia ICD-10: F03.90 ICD-9: 294.20 04/26/2021 Active Alzheimer's disease with late onset ICD-10: G30.1 ICD-9: 331.0 01/07/2019 Active Encounter for general adult medical examination withou t abnormal findings ICD- 10: Z00.00 ICD-9: V70.9 10/12/2020 Active Mixed hyperlipidemia ICD-10: E78.2 ICD-9: 272.4 08/23/2014 Active Alzheimer's dementia with behavioral disturbance ICD-1 0: G30.9 ICD-9: 331.0 11/27/2017 Active Dementia in other diseases classified elsewhere [...] 788.43 01/07/2019 Active Atherosclerotic heart disease of [place] coronary arter y without angina pectoris ICD-10: [...] Start Date Stop Date Status Fill Instructions memantine 10 mg tablet RxNorm: 261118 TAKE 1 TABLET TWI CE DAILY (REPLACES NAMENDA XR) 10/04/2021 04/01/2022 Active escitalopram 20 mg tablet RxNorm: 386949 TAKE 1 TABLET AT BEDTIME 1 12/05/2020 04/01/2022 Active warfarin 2 mg tablet RxNorm: 208259 TAKE 1 AND 1/2 TABL ETS ON SATURDAY, SATURDAY, SATURDAY, SATURDAY AND TAKE 2 TABLETS ON SATURDAY, SATURDAY AND Saturday08/23/2021 11/20/2021 Active tamsulosin 0.4 mg capsule RxNorm: 722219 TAKE 1 CAPSULE EVERY DAY 0 06/26/2021 09/23/2021 Inactive carbidopa 25 mg-levodopa 100 mg tablet RxNorm: 765825 T PHAM 1 TABLET TWICE DAILY FOR TREMORS 06/26/2021 07/04/2021 Inactive memantine 10 mg tablet RxNorm: 466249 TAKE 1 TABLET TWI CE DAILY (REPLACES NAMENDA XR) 06/26/2021 06/26/2021 Inactive escitalopram 20 mg tablet RxNorm: 656759 TAKE 1 TABLET AT BEDTIME 0 06/26/2021 06/26/2021 Inactive warfarin 2 mg tablet RxNorm: 622679 TAKE 1 AND 1/2 TABL ETS ON SATURDAY, SATURDAY, SATURDAY, SATURDAY AND TAKE 2 TABLETS ON SATURDAY, SATURDAY AND Saturday06/26/2021 06/26/2021 Inactive Sinemet 25 mg-100 mg tablet RxNorm: 826618 Take 1 Table t(s) Oral two times a day for tremors 04/26/2021 04/26/2021 Inactive memantine 10 mg tablet RxNorm: 040858 TAKE 1 TABLET TWI CE DAILY (REPLACES NAMENDA XR) 04/12/2021 04/12/2021 Inactive warfarin 2 mg tablet RxNorm: 660270 2 Tablet(s) Oral Mo through Saturday and 1.5 tablets on Saturday/Saturday01/19/2021 No Stop Date Active tamsulosin 0.4 mg capsule RxNorm: 621026 TAKE 1 CAPSULE EVERY DAY 0 12/19/2020 12/19/2020 Inactive warfarin 2 mg tablet RxNorm: 891996 TAKE 1 AND 1/2 TABL ETS ON SATURDAY, SATURDAY, SATURDAY, SATURDAY AND TAKE 2 TABLETS ON SATURDAY, SATURDAY AND Saturday12/12/2020 01/18/2021 Inactive escitalopram 20 mg tablet RxNorm: 640779 TAKE 1 TABLET AT BEDTIME 0 11/28/2020 11/28/2020 Inactive Namenda 10 mg tablet RxNorm: 135216 TAKE 1 TABLET TWICE DAILY (REPLACES NAMENDA XR) 10/17/2020 10/17/2020 Inactive melatonin 10 mg capsule RxNorm: 106218 1 Capsule(s) Oral QD 020 No Stop Date Active tamsulosin 0.4 mg capsule RxNorm: 978136 TAKE 1 CAPSULE EVERY DAY 1 12/18/2020 Inactive warfarin 2 mg tablet RxNorm: 223436 TAKE 1 AND 1/2 TABL ETS ON SATURDAY, SATURDAY, SATURDAY, SATURDAY AND TAKE 2 TABLETS ON SATURDAY, SATURDAY AND Saturday07/12/2020 12/11/2020 Inactive warfarin 2 mg tablet RxNorm: 214701 TAKE 1 AND 1/2 TABL ETS ON SATURDAY, SATURDAY, SATURDAY, SATURDAY AND TAKE 2 TABLETS ON SATURDAY, SATURDAY AND Saturday06/27/2020 07/11/2020 Inactive Namenda 10 mg tablet RxNorm: 488980 TAKE 1 TABLET TWICE DAILY (REPLACES NAMENDA XR) 04/18/2020 10/16/2020 Inactive tamsulosin 0.4 mg capsule RxNorm: 211544 1 Capsule(s) Oral QD 02/1108/10/2020 Inactive Depakote ER 250 mg tablet,extended release RxNorm: 3519648 1 Tab let(s) Oral QPM 01/21/2020 04/20/2020 Inactive warfarin 2 mg tablet RxNorm: 675302 TAKE 1 AND 1/2 TABL ETS ON SATURDAY, SATURDAY, SATURDAY AND SATURDAY AND TAKE 2 TABLETS ON SATURDAY, SATURDAY AND Saturday12/14/2019 06/26/2020 Inactive escitalopram 20 mg tablet RxNorm: 465820 TAKE 1 TABLET AT BEDTIME 0 11/16/2019 11/27/2020 Inactive Namenda 10 mg tablet RxNorm: 265727 TAKE 1 TABLET TWICE DAILY (REPLACES NAMENDA XR) 10/08/2019 04/17/2020 Inactive tamsulosin 0.4 mg capsule RxNorm: 748982 1 Capsule(s) Oral QD 09/0202/11/2020 Inactive warfarin 2 mg tablet RxNorm: 332959 1.5 Tablet(s) PO on , Th, Sat, and Sun and 2 tablets on Sat, Sat, Sat07/13/2019 07/12/2019 Inactive Depakote ER 250 mg tablet,extended release RxNorm: 4907887 1 Tab let(s) PO BID 06/08/2019 09/05/2019 Inactive pravastatin 80 mg tablet RxNorm: 573140 TAKE 1 TABLET EVERY DAY 11/201809/01/2019 Inactive warfarin 2 mg tablet RxNorm: 728795 TAKE 1 AND 1/2 TABS ON SATURDAY,SATURDAY AND SATURDAY AND TAKE 2 TABS ON , TH, SAT AND SUN (NEED MD APPOINTMENT) 03/09/2019 07/13/2019 Inactive Namenda 10 mg tablet RxNorm: 685070 TAKE 1 TABLET TWICE DAILY (REPLACES NAMENDA XR) 02/09/2019 08/07/2019 Inactive doxepin 25 mg capsule RxNorm: 8638512 1 Capsule(s) PO QH S for sleep replaces 10mg dose 02/09/2019 04/21/2019 Inactive escitalopram 20 mg tablet RxNorm: 683292 1 Tablet(s) PO QHS 019 08/07/2019 Inactive tamsulosin 0.4 mg capsule RxNorm: 356953 1 Capsule(s) P O QPM for urinary frequency 01/07/2019 02/12/2020 Inactive divalproex 250 mg tablet,delayed release RxNorm: 0333495 1 Table t(s) PO QHS 01/07/2019 01/07/2019 Inactive doxepin 10 mg capsule RxNorm: 4675058 1-2 Capsule(s) PO QHS as n eeded for sleep 01/07/2019 02/08/2019 Inactive warfarin 2 mg tablet RxNorm: 241228 1 1/2 Tablet(s) PO MWF and 2 tablets on T Th Sat and Sun 12/29/2018 03/08/2019 Inactive metoprolol tartrate 50 mg tablet RxNorm: 605352 TAKE 1 TABLET T WICE DAILY 12/01/2018 06/30/2019 Inactive Namenda 10 mg tablet RxNorm: 535492 TAKE 1 TABLET TWICE DAILY (REPLACES NAMENDA XR) 09/22/2018 02/08/2019 Inactive warfarin 2 mg tablet RxNorm: 588461 1 1/2 Tablet(s) PO MWF and 2 tablets on T Th Sat and Sun 09/02/2018 09/01/2018 Inactive escitalopram 10 mg tablet RxNorm: 057765 1 Tablet(s) PO QHS 018 02/08/2019 Inactive pravastatin 80 mg tablet RxNorm: 007806 1 Tablet(s) PO QD 01/28/2018 10/24/2018 Inactive Namenda 10 mg tablet RxNorm: 560875 1 Tablet(s) PO BID 11/27/2017 Inactive escitalopram 10 mg tablet RxNorm: 728193 1 Tablet(s) PO QHS 018 06/09/2018 Inactive Namenda XR 28 mg capsule sprinkle,extended release RxNorm: 9 77450 TAKE ONE CAPSULE BY MOUTH ONCE DAILY 10/10/2017 11/26/2017 Inactive metoprolol tartrate 50 mg tablet RxNorm: 894517 Tablet( s) TAKE 1 TABLET TWICE DAILY 10/03/2017 09/27/2018 Inactive warfarin 2 mg tablet RxNorm: 037790 Tablet(s) TAKE 2 TA BLETS SATURDAY THROUGH SATURDAY AND 1 TABLET SATURDAY AND Saturday05/09/2017 09/02/2018 Inactive divalproex 250 mg tablet,delayed release RxNorm: 4219100 TAKE 1 TABLET TWICE DAILY 02/19/2017 01/06/2019 Inactive Namenda XR 28 mg capsule sprinkle,extended release RxNorm: 9 50161 TAKE 1 CAPSULE EVERY DAY 02/11/2017 10/09/2017 Inactive pravastatin 80 mg tablet RxNorm: 942589 1 Tablet(s) PO QD 01/21/2017 01/28/2018 Inactive Namenda XR 28 mg capsule sprinkle,extended release RxNorm: 9 38323 TAKE ONE CAPSULE BY MOUTH ONCE DAILY 09/24/2016 02/10/2017 Inactive metoprolol tartrate 50 mg tablet RxNorm: 365226 TAKE 1 TABLET T WICE DAILY 09/10/2016 10/03/2017 Inactive warfarin 2 mg tablet RxNorm: 135592 TAKE 2 TABLETS THROUGH SATURDAY AND 1 TABLET SATURDAY AND Saturday2016 05/09/2017 Inactive divalproex 250 mg tablet,delayed release RxNorm: 7632164 1 Table t(s) PO QHS 12/19/2015 12/12/2016 Inactive pravastatin 80 mg tablet RxNorm: 683742 1 Tablet(s) PO QD 12/19/2015 01/21/2017 Inactive Namenda XR 28 mg capsule sprinkle,extended release RxNorm: 9 94441 1 Capsule(s) PO QD 11/11/2015 09/23/2016 Inactive divalproex 250 mg tablet,delayed release RxNorm: 0640436 1 Table t(s) PO QHS 10/10/2015 12/19/2015 Inactive Namenda XR 28 mg capsule sprinkle,extended release RxNorm: 9 89573 1 Capsule(s) PO QD TAKE 1 CAPSULE EVERY DAY 11/09/2014 11/11/2015 Inactive Namenda XR 28 mg capsule sprinkle,ER 24hr RxNorm: 476221 1 PO QD TAKE ONE CAPSULE BY MOUTH ONCE DAILY 10/07/2014 11/09/2014 Inactive Namenda XR 28 mg capsule sprinkle,ER 24hr RxNorm: 142202 1 Caps ule(s) PO QD 11/10/2013 10/07/2014 Inactive metoprolol tartrate 50 mg tablet RxNorm: 326460 1 Tablet(s) PO BID 05/14/2013 05/08/2014 Inactive 1BID (REPLACES TOPROL) - KIMBER[place] E ONE TABLET BY MOUTH TWICE DAILY (REPLACES TOPROL) Ativan 1 mg tablet RxNorm: 044228 1 Tablet(s) PO BID 05/01/201310/09 Inactive as needed for anxiety pravastatin 40 mg tablet RxNorm: 470106 1 Tablet(s) PO QD due for labs in late summer03/26/2013 11/10/2014 Inactive warfarin 2 mg tablet RxNorm: 137924 1 Tablet(s) PO Take 2 tablets by mouth Saturday through Saturday and 1 tablet on Saturday and Saturday10/07/2012 Inactive pravastatin 40 mg tablet RxNorm: 387274 1 Tablet(s) PO QD 08/13/2012 03/26/2013 Inactive metoprolol tartrate 50 mg tablet RxNorm: 272389 1 Tablet(s) PO BID 08/13/2012 05/14/2013 Inactive 1BID (REPLACES TOPROL) - [place] E ONE TABLET BY MOUTH TWICE DAILY (REPLACES TOPROL) warfarin 2 mg tablet RxNorm: 991700 1 Tablet(s) PO QD 08/13/201202/2012 Inactive warfarin 2 mg tablet RxNorm: 384269 Tablet(s) PO 11/07/2011 08/13/2012 Inactive 2QD - TAKE TWO TABLETS BY MOUTH EVERY DAY SATURDAY THROUGH SATURDAY AND 1 TABLET ON SATURDAY AND SATURDAY pravastatin 40 mg tablet RxNorm: 009506 1 Tablet(s) PO QD 10/15/2011 08/13/2012 Inactive Ativan 1 mg tablet RxNorm: 150648 1 Tablet(s) PO BID 10/01/201109/30 Active as needed for anxiety metoprolol tartrate 50 mg tablet RxNorm: 654918 1 Tablet(s) PO BID 08/27/2011 08/13/2012 Inactive 1BID (REPLACES TOPROL) - [place] E ONE TABLET BY MOUTH TWICE DAILY (REPLACES TOPROL) pravastatin 40 mg Tab RxNorm: 293776 1 Tablet(s) PO QD 07/10/201109/2011 Inactive Ativan 1 mg Tab RxNorm: 338715 1 Tablet(s) PO BID 07/02/2011 1 Active as needed for anxiety metoprolol tartrate 50 mg Tab RxNorm: 692954 1 Tablet(s ) PO BID 1BID (REPLACES TOPROL) - TAKE ONE TABLET BY MOUTH TWICE DAILY (REPLACES TOPROL) 03/12/2011 08/26/2011 Inactive Ativan 1 mg Tab RxNorm: 059668 1 Tablet(s) PO BID as needed for anxiety 02/26/2011 02/25/2011 Active warfarin 2 mg Tab RxNorm: 802600 Tablet(s) PO 2QD - T PHAM TWO TABLETS BY MOUTH EVERY DAY SATURDAY THROUGH SATURDAY AND 1 TABLET ON SATURDAY AND Saturday12/18/2010 11/07/2011 Inactive Ativan 1 mg Tab RxNorm: 505991 1 Tablet(s) PO BID PRN for anxiety 0 11/06/2010 01/06/2019 Inactive metoprolol tartrate 50 mg Tab RxNorm: 514678 1 Tablet(s ) PO BID 1BID (REPLACES TOPROL) - TAKE ONE TABLET BY MOUTH TWICE DAILY (REPLACES TOPROL) 09/11/2010 03/12/2011 Inactive Ativan 1 mg Tab RxNorm: 741017 1 Tablet(s) PO BID PRN for anxiety 1 11/06/2010 Inactive warfarin 2 mg Tab RxNorm: 361360 Tablet(s) PO 2QD - T PHAM TWO TABLETS BY MOUTH EVERY DAY SATURDAY THROUGH SATURDAY AND 1 TABLET ON SATURDAY AND Saturday07/24/2010 10/29/2010 Inactive metoprolol tartrate 50 mg Tab RxNorm: 648345 1 Tablet(s) PO QD 01/201009/11/2010 Inactive pravastatin 40 mg Tab RxNorm: 242015 1 Tablet(s) PO QD 06/06/201004/2011 Inactive Warfarin 2 mg Tab RxNorm: 569774 2 Tablet(s) PO QD 2 tablets by mouth Saturday through Saturday, and one tablet by mouth on Saturday and Saturday. 06/06/2010 07/23/2010 Inactive Ativan 1 mg Tab RxNorm: 061750 1 Tablet(s) PO QHS PRN for anxiety 0 06/06/2010 08/27/2010 Inactive Pravastatin 40 mg Tab RxNorm: 187718 1 Tablet(s) PO QD 04/14/201012/2009 Inactive Ativan 1 mg Tab RxNorm: 706188 1 Tablet(s) PO BID PRN for anxiety 0 02/23/2010 06/02/2010 Inactive Probiotic oral RxNorm: 6205 oral 04/07/2020 Active Pool 3 Natural Fish Oil Conc capsule RxNorm: 1 Capsule(s) PO QD 0 11/27/2017 Active turmeric-turmeric root extract oral RxNorm: 0579249 oral 11/27/19 18 Active magnesium oral RxNorm: 6574 oral 04/07/2020 Active Vitamin D3 5,000 unit tablet RxNorm: 831980 1 Tablet(s) PO QD 019 Active warfarin 2 mg tablet RxNorm: 129130 1 Tablet(s) PO QD 08/13/201207/2012 Inactive Ativan 1 mg Tab RxNorm: 547511 1 Tablet(s) PO BID as needed for anxiety 02/26/2011 02/25/2011 Inactive warfarin 2 mg Tab RxNorm: 583113 2 Tablet(s) PO QD saturday06/06/2012 06/05/2012 Inactive Tricor 145 mg Tab RxNorm: 113607 1 Tablet(s) PO QD 12/06/2011 012 Inactive warfarin 4 mg tablet RxNorm: 432101 Tablet(s) PO 11/27/2017 11/26/2017 Inactive warfarin 2 mg Tab RxNorm: 629984 1 Tablet(s) PO QD on saturday and saturday06/06/2012 06/05/2012 Inactive warfarin 2 mg tablet RxNorm: 523907 1.5 Tablet(s) PO on , , Sat, and Sun and 2 tablets on Sat, Sat, Sat07/13/2019 07/12/2019 Inactive pravastatin 80 mg tablet RxNorm: 144727 1 Tablet(s) PO QD 12/19/2015 12/19/2015 Inactive metoprolol tartrate 50 mg tablet RxNorm: 656976 1 Tablet(s) PO QD 1 09/01/2019 Inactive Warfarin 2 mg Tab RxNorm: 766594 Tablet(s) PO 2 table ts by mouth Saturday through Saturday, and one tablet by mouth on Saturday and Saturday. 06/06/2010 08/0 12/2009 Inactive Namenda 10 mg Tab RxNorm: 087459 2 Tablet(s) PO QD 07/02/2013 013 Inactive warfarin 2 mg tablet RxNorm: 504283 1 1/2 Tablet(s) PO MWF and 2 tablets on Sat and Sun 09/02/2018 09/01/2018 Inactive Ativan 1 mg Tab RxNorm: 701720 1 Tablet(s) PO BID PRN for anxiety 0 04/20/2010 04/19/2010 Inactive warfarin 2 mg Tab RxNorm: 156508 Tablet(s) PO take 2 tablets by mouth Sat-Sat and 1 tablet on Saturday and Saturday06/06/2012 06/05/2012 Inactive Depakote ER 250 mg tablet,extended release RxNorm: 8502867 1 Tab let(s) PO BID 11/27/2017 11/26/2017 Inactive warfarin 1 mg Tab RxNorm: 177175 1 Tablet(s) PO on Saturday and Saturday10/30/2010 [...] Code Result Date S ervice Location PT [id number] PT 24.4 Seconds 07/05/2021 Unknow n PT [id number] INR 2.2 07/05/2021 Unknown PT [id number] PT 25.2 Seconds 04/28/2021 Unknow n PT [id number] INR 2.3 04/28/2021 Unknown THYROID STIMULATING HORMONE 32435 TSH 2.271 uIU/mL 04/28/2021 Unknown COMPREHENSIVE METABOLIC 94204 AST 18 U/L 2020 Unknown COMPREHENSIVE METABOLIC 76190 ALT 9 U/L 2020 Unknown COMPREHENSIVE METABOLIC 93023 BUN 17 mg/dL 2020 Unknown COMPREHENSIVE METABOLIC 76738 ALBUMIN 3.8 g/dL 2020 Unknown COMPREHENSIVE METABOLIC 50249 CHLORIDE 108 mmol/L 04/28 Unknown COMPREHENSIVE METABOLIC 46931 Bili Total 0.7 mg/dL 04/28 Unknown COMPREHENSIVE METABOLIC 74093 ALK PHOS 76 U/L 2020 Unknown COMPREHENSIVE METABOLIC 76153 SODIUM 140 mmol/L 04/28 Unknown COMPREHENSIVE METABOLIC 38814 CREATININE 0.83 mg/dL 04/05 Unknown COMPREHENSIVE METABOLIC 74033 CALCIUM 9.5 mg/dL 2020 Unknown COMPREHENSIVE METABOLIC 63949 POTASSIUM 4.1 mmol/L 04/28 Unknown COMPREHENSIVE METABOLIC 66869 Total Protein 6.9 g/dL Unknown COMPREHENSIVE METABOLIC 75041 Glucose 106 mg/dL 2020 Unknown COMPREHENSIVE METABOLIC 43027 Bicarbonate 26 mmol/L 04/05 Unknown COMPREHENSIVE METABOLIC 77088 AGAP 6 mmol/L 2020 Unknown GFR CALC [id number] GFR Non Afr Amr >60 mL/min 04/28/2021 Un known GFR CALC [id number] GFR Afr Amr >60 mL/min 04/28/2021 Unknow n COMPLETE BLOOD COUNT [id number] WBC 4.6 10e9/L 04/28/20 21 Unknown COMPLETE BLOOD COUNT [id number] RBC 4.39 10e12/L 2020 Unknown COMPLETE BLOOD COUNT [id number] HEMOGLOBIN 14.2 g/dL 04/28/20 21 Unknown COMPLETE BLOOD COUNT [id number] HEMATOCRIT 41.1 % 04/28/20 21 Unknown COMPLETE BLOOD COUNT [id number] MCV 93.6 fL 1 Unknown COMPLETE BLOOD COUNT [id number] MCH 32.3 pg 1 Unknown COMPLETE BLOOD COUNT [id number] MCHC 34.5 g/dL 1 Unknown COMPLETE BLOOD COUNT [id number] PLATELET COUNT 198 10e9/L Unknown COMPLETE BLOOD COUNT [id number] Mean Plt Volume 9.3 fL Unknown COMPLETE BLOOD COUNT 3992009 Neut Auto 54.8 % 1 Unknown COMPLETE BLOOD COUNT [id number] Lymph Auto 33.7 % 04/28/20 21 Unknown COMPLETE BLOOD COUNT [id number] Rabun Auto 9.6 % 1 Unknown COMPLETE BLOOD COUNT 7991277 RDW 12.2 % 1 Unknown COMPLETE BLOOD COUNT [id number] Eos Auto 1.7 % 1 Unknown COMPLETE BLOOD COUNT [id number] Baso Auto 0.2 % 1 Unknown COMPLETE BLOOD COUNT [id number] Neutrophil Abs 2.52 10e9/L Unknown COMPLETE BLOOD COUNT [id number] Lymphocyte Abs 1.55 10e9/L Unknown COMPLETE BLOOD COUNT [id number] Monocyte Abs 0.44 10e9/L 04/05 Unknown COMPLETE BLOOD COUNT [id number] Eosinophil Abs 0.08 10e9/L Unknown COMPLETE BLOOD COUNT [id number] RDW-SD 40.9 fL 1 Unknown COMPLETE BLOOD COUNT [id number] Basophil Abs 0.01 10e9/L 04/05 Unknown FREE T4 50337 T4 Free 0.81 ng/dL 04/28/2021 Unknown PT [id number] PT 19.8 Seconds 01/18/2021 Unknow n PT [id number] INR 1.6 01/18/2021 Unknown PT [id number] PT 18.7 Seconds 10/14/2020 Unknow n PT [id number] INR 1.5 10/14/2020 Unknown COMPREHENSIVE METABOLIC 36847 AST 17 U/L 2019 Unknown COMPREHENSIVE METABOLIC 39278 ALT 10 U/L 2019 Unknown COMPREHENSIVE METABOLIC 80699 BUN 19 mg/dL 2019 Unknown COMPREHENSIVE METABOLIC 98860 ALBUMIN 4.1 g/dL 2019 Unknown COMPREHENSIVE METABOLIC 89785 CHLORIDE 103 mmol/L 10/14 Unknown COMPREHENSIVE METABOLIC 18825 Bili Total 0.6 mg/dL 10/14 Unknown COMPREHENSIVE METABOLIC 99713 ALK PHOS 65 U/L 2019 Unknown COMPREHENSIVE METABOLIC 06348 SODIUM 141 mmol/L 10/14 Unknown COMPREHENSIVE METABOLIC 66673 CREATININE 0.77 mg/dL 10/04 Unknown COMPREHENSIVE METABOLIC 43079 CALCIUM 9.2 mg/dL 2019 Unknown COMPREHENSIVE METABOLIC 69103 POTASSIUM 4.2 mmol/L 10/14 Unknown COMPREHENSIVE METABOLIC 46732 Total Protein 6.7 g/dL Unknown COMPREHENSIVE METABOLIC 82079 Glucose 91 mg/dL 2019 Unknown COMPREHENSIVE METABOLIC 50142 Bicarbonate 28 mmol/L 10/04 Unknown COMPREHENSIVE METABOLIC 46403 AGAP 10 mmol/L 2019 Unknown FREE T4 54708 T4 Free 0.81 ng/dL 10/14/2020 Unknown HEMOGLOBIN A1C (GLYCOSYLATED) 1204767 Hgb A1c 54865-6 4.4 % 10/14/2020 Unknown HEMOGLOBIN A1C (GLYCOSYLATED) 7728518 Calc Mean Gluc 80 mg /dL 10/14/2020 Unknown COMPLETE BLOOD COUNT [id number] WBC 5.4 10e9/L 10/14/20 20 Unknown COMPLETE BLOOD COUNT [id number] RBC 4.40 10e12/L 2019 Unknown COMPLETE BLOOD COUNT 6275253 HEMOGLOBIN 14.4 g/dL 10/14/20 20 Unknown COMPLETE BLOOD COUNT [id number] HEMATOCRIT 42.4 % 10/14/20 20 Unknown COMPLETE BLOOD COUNT 3175854 MCV 96.4 fL 0 Unknown COMPLETE BLOOD COUNT [id number] MCH 32.7 pg 0 Unknown COMPLETE BLOOD COUNT [id number] MCHC 34.0 g/dL 0 Unknown COMPLETE BLOOD COUNT 4855410 PLATELET COUNT 216 10e9/L 09/2020 Unknown COMPLETE BLOOD COUNT [id number] Mean Plt Volume 9.5 fL 09/2020 Unknown COMPLETE BLOOD COUNT 2679749 Neut Auto 57.6 % 0 Unknown COMPLETE BLOOD COUNT [id number] Lymph Auto 31.5 % 10/14/20 20 Unknown COMPLETE BLOOD COUNT [id number] Rabun Auto 9.0 % 0 Unknown COMPLETE BLOOD COUNT 2389054 RDW 12.4 % 0 Unknown COMPLETE BLOOD COUNT 3485145 Eos Auto 1.7 % 0 Unknown COMPLETE BLOOD COUNT 6055857 Baso Auto 0.2 % 0 Unknown COMPLETE BLOOD COUNT [id number] Neutrophil Abs 3.11 10e9/L Unknown COMPLETE BLOOD COUNT [id number] Lymphocyte Abs 1.70 10e9/L Unknown COMPLETE BLOOD COUNT [id number] Monocyte Abs 0.49 10e9/L 10/04 Unknown COMPLETE BLOOD COUNT 7535829 Eosinophil Abs 0.09 10e9/L Unknown COMPLETE BLOOD COUNT [id number] RDW-SD 42.4 fL 0 Unknown COMPLETE BLOOD COUNT [id number] Basophil Abs 0.01 10e9/L 10/04 Unknown THYROID STIMULATING HORMONE 01376 TSH 2.071 uIU/mL 10/14/2020 Unknown LIPID GROUP 49560 Cholesterol 217 mg/dL 10/14/2020 Unkno wn LIPID GROUP 62080 Triglyceride 108 mg/dL 10/14/2020 Unkn own LIPID GROUP 34309 HDL CHOLESTEROL 46 mg/dL 10/14/2020 U nknown LIPID GROUP 56658 Chol/HDL Ratio 4.72 ratio 10/14/2020 U nknown LIPID GROUP 91343 NON-HDL Chol 171 mg/dL 10/14/2020 Unkn own LIPID GROUP 36635 LDL Cholesterol 149 mg/dL 10/14/2020 U nknown GFR CALC 8021819 GFR Non Afr Amr >60 mL/min 10/14/2020 Un known GFR CALC [id number] GFR Afr Amr >60 mL/min 10/14/2020 Unknow n COMPLETE BLOOD COUNT 1438401 WBC 7.6 10e9/L 04/06/20 20 Unknown COMPLETE BLOOD COUNT 2134511 RBC 3.90 10e12/L 2019 Unknown COMPLETE BLOOD COUNT 1631090 HEMOGLOBIN 12.0 g/dL 04/06/20 20 Unknown COMPLETE BLOOD COUNT [id number] HEMATOCRIT 36.9 % 04/06/20 20 Unknown COMPLETE BLOOD COUNT 7233092 MCV 94.6 fL 0 Unknown COMPLETE BLOOD COUNT 2325302 MCH 30.8 pg 0 Unknown COMPLETE BLOOD COUNT 0221422 MCHC 32.5 g/dL 0 Unknown COMPLETE BLOOD COUNT 8594725 PLATELET COUNT 257 10e9/L 01/2020 Unknown COMPLETE BLOOD COUNT 7234596 Mean Plt Volume 8.6 fL 01/2020 Unknown COMPLETE BLOOD COUNT 6025907 Neut Auto 68.7 % 0 Unknown COMPLETE BLOOD COUNT 2763023 Lymph Auto 22.0 % 04/06/20 20 Unknown COMPLETE BLOOD COUNT 9759276 Rabun Auto 8.3 % 0 Unknown COMPLETE BLOOD COUNT [id number] RDW 12.7 % 0 Unknown COMPLETE BLOOD COUNT 8023157 Eos Auto 0.7 % 0 Unknown COMPLETE BLOOD COUNT 4759725 Baso Auto 0.3 % 0 Unknown COMPLETE BLOOD COUNT [id number] Neutrophil Abs 5.22 10e9/L Unknown COMPLETE BLOOD COUNT 3925173 Lymphocyte Abs 1.67 10e9/L Unknown COMPLETE BLOOD COUNT [id number] Monocyte Abs 0.63 10e9/L 01/2020 Unknown COMPLETE BLOOD COUNT 6479436 Eosinophil Abs 0.05 10e9/L Unknown COMPLETE BLOOD COUNT 0339459 RDW-SD 42.6 fL 0 Unknown COMPLETE BLOOD COUNT [id number] Basophil Abs 0.02 10e9/L 01/2020 Unknown PT [id number] PT 19.3 Seconds 04/06/2020 Unknow n PT [id number] INR 1.6 04/06/2020 Unknown COMPREHENSIVE METABOLIC 45177 AST 12 U/L 2019 Unknown COMPREHENSIVE METABOLIC 83769 ALT 7 U/L 2019 Unknown COMPREHENSIVE METABOLIC 74999 BUN 19 mg/dL 2019 Unknown COMPREHENSIVE METABOLIC 31502 ALBUMIN 3.8 g/dL 2019 Unknown COMPREHENSIVE METABOLIC 42096 CHLORIDE 103 mmol/L 04/06 Unknown COMPREHENSIVE METABOLIC 11509 Bili Total 0.4 mg/dL 04/06 Unknown COMPREHENSIVE METABOLIC 75122 ALK PHOS 78 U/L 2019 Unknown COMPREHENSIVE METABOLIC 24728 SODIUM 141 mmol/L 04/06 Unknown COMPREHENSIVE METABOLIC 70123 CREATININE 0.90 mg/dL 01/2020 Unknown COMPREHENSIVE METABOLIC 88842 CALCIUM 9.0 mg/dL 2019 Unknown COMPREHENSIVE METABOLIC 12498 POTASSIUM 3.8 mmol/L 04/06 Unknown COMPREHENSIVE METABOLIC 39441 Total Protein 6.1 g/dL Unknown COMPREHENSIVE METABOLIC 05204 Glucose 125 mg/dL 2019 Unknown COMPREHENSIVE METABOLIC 78267 Bicarbonate 27 mmol/L 01/2020 Unknown COMPREHENSIVE METABOLIC 25251 AGAP 11 mmol/L 2019 Unknown GFR CALC 4820050 GFR Non Afr Amr >60 mL/min 04/06/2020 Un known GFR CALC 6645172 GFR Afr Amr >60 mL/min 04/06/2020 Unknow n PT [id number] PT 25.2 Seconds 09/02/2019 Unknow n PT [id number] INR 2.2 09/02/2019 Unknown PT [id number] PT 26.5 Seconds 04/22/2019 Unknow n PT [id number] INR 2.3 04/22/2019 Unknown FERRITIN 55610 FERRITIN 240.3 ng/mL 04/22/2019 Unknown COMPLETE BLOOD COUNT [id number] WBC 7.7 10e9/L 04/22/20 19 Unknown COMPLETE BLOOD COUNT [id number] RBC 4.19 10e12/L 2018 Unknown COMPLETE BLOOD COUNT [id number] HEMOGLOBIN 13.5 g/dL 04/22/20 19 Unknown COMPLETE BLOOD COUNT [id number] HEMATOCRIT 39.6 % 04/22/20 19 Unknown COMPLETE BLOOD COUNT [id number] MCV 94.5 fL 9 Unknown COMPLETE BLOOD COUNT [id number] MCH 32.2 pg 9 Unknown COMPLETE BLOOD COUNT 3758294 MCHC 34.1 g/dL 9 Unknown COMPLETE BLOOD COUNT [id number] PLATELET COUNT 235 10e9/L Unknown COMPLETE BLOOD COUNT 1573017 Mean Plt Volume 9.8 fL Unknown COMPLETE BLOOD COUNT 0566943 Neut Auto 68.5 % 9 Unknown COMPLETE BLOOD COUNT 1075076 Lymph Auto 22.4 % 04/22/20 19 Unknown COMPLETE BLOOD COUNT [id number] Rabun Auto 8.3 % 9 Unknown COMPLETE BLOOD COUNT 3120725 RDW 12.4 % 9 Unknown COMPLETE BLOOD COUNT 0440304 Eos Auto 0.5 % 9 Unknown COMPLETE BLOOD COUNT 7847512 Baso Auto 0.3 % 9 Unknown COMPLETE BLOOD COUNT 6056013 Neutrophil Abs 5.27 10e9/L Unknown COMPLETE BLOOD COUNT [id number] Lymphocyte Abs 1.72 10e9/L Unknown COMPLETE BLOOD COUNT [id number] Monocyte Abs 0.64 10e9/L 04/04 Unknown COMPLETE BLOOD COUNT [id number] Eosinophil Abs 0.04 10e9/L Unknown COMPLETE BLOOD COUNT [id number] RDW-SD 41.6 fL 9 Unknown COMPLETE BLOOD COUNT [id number] Basophil Abs 0.02 10e9/L 04/04 Unknown IRON 13584 Iron 95 ug/dL 04/22/2019 Unknown GFR CALC [id number] GFR Non Afr Amr >60 mL/min 01/05/2019 Un known GFR CALC [id number] GFR Afr Amr >60 mL/min 01/05/2019 Unknow n COMPREHENSIVE METABOLIC 17907 AST 15 U/L 2018 Unknown COMPREHENSIVE METABOLIC 14853 ALT 11 U/L 2018 Unknown COMPREHENSIVE METABOLIC 32533 BUN 16 mg/dL 2018 Unknown COMPREHENSIVE METABOLIC 37396 ALBUMIN 3.9 g/dL 2018 Unknown COMPREHENSIVE METABOLIC 32056 CHLORIDE 106 mmol/L 01/05 Unknown COMPREHENSIVE METABOLIC 63465 Bili Total 0.7 mg/dL 01/05 Unknown COMPREHENSIVE METABOLIC 52937 ALK PHOS 50 U/L 2018 Unknown COMPREHENSIVE METABOLIC 70942 SODIUM 138 mmol/L 01/05 Unknown COMPREHENSIVE METABOLIC 38772 CREATININE 0.74 mg/dL 02/2019 Unknown COMPREHENSIVE METABOLIC 40625 CALCIUM 9.0 mg/dL 2018 Unknown COMPREHENSIVE METABOLIC 92579 POTASSIUM 4.3 mmol/L 01/05 Unknown COMPREHENSIVE METABOLIC 45283 Total Protein 6.4 g/dL Unknown COMPREHENSIVE METABOLIC 76909 Glucose 114 mg/dL 2018 Unknown COMPREHENSIVE METABOLIC 75740 Bicarbonate 26 mmol/L 02/2019 Unknown COMPREHENSIVE METABOLIC 15347 AGAP 6 mmol/L 2018 Unknown COMPLETE BLOOD COUNT [id number] WBC 5.5 10e9/L 01/06/20 19 Unknown COMPLETE BLOOD COUNT [id number] RBC 4.27 10e12/L 2018 Unknown COMPLETE BLOOD COUNT [id number] HEMOGLOBIN 14.0 g/dL 01/06/20 19 Unknown COMPLETE BLOOD COUNT [id number] HEMATOCRIT 40.6 % 01/06/20 19 Unknown COMPLETE BLOOD COUNT [id number] MCV 95.1 fL 9 Unknown COMPLETE BLOOD COUNT [id number] MCH 32.8 pg 9 Unknown COMPLETE BLOOD COUNT [id number] MCHC 34.5 g/dL 9 Unknown COMPLETE BLOOD COUNT [id number] PLATELET COUNT 211 10e9/L 02/2019 Unknown COMPLETE BLOOD COUNT [id number] Mean Plt Volume 9.8 fL 02/2019 Unknown COMPLETE BLOOD COUNT [id number] Neut Auto 64.7 % 9 Unknown COMPLETE BLOOD COUNT [id number] Lymph Auto 24.3 % 01/06/20 19 Unknown COMPLETE BLOOD COUNT [id number] Rabun Auto 9.7 % 9 Unknown COMPLETE BLOOD COUNT [id number] RDW 12.2 % 9 Unknown COMPLETE BLOOD COUNT [id number] Eos Auto 1.1 % 9 Unknown COMPLETE BLOOD COUNT [id number] Baso Auto 0.2 % 9 Unknown COMPLETE BLOOD COUNT [id number] Neutrophil Abs 3.56 10e9/L Unknown COMPLETE BLOOD COUNT [id number] Lymphocyte Abs 1.34 10e9/L Unknown COMPLETE BLOOD COUNT [id number] Monocyte Abs 0.53 10e9/L 02/2019 Unknown COMPLETE BLOOD COUNT [id number] Eosinophil Abs 0.06 10e9/L Unknown COMPLETE BLOOD COUNT [id number] RDW-SD 41.3 fL 9 Unknown COMPLETE BLOOD COUNT [id number] Basophil Abs 0.01 10e9/L 02/2019 Unknown [facility] 55818 Cholesterol 145 mg/dL 01/05/2019 Unkno wn [facility] 98409 Triglyceride 153 mg/dL 01/05/2019 Unkn own [facility] 42454 HDL CHOLESTEROL 39 mg/dL 01/05/2019 U nknown [facility] 09922 Chol/HDL Ratio 3.72 ratio 01/05/2019 U nknown [facility] 50889 NON-HDL Chol 106 mg/dL 01/05/2019 Unkn own [facility] 84433 LDL Cholesterol 75 mg/dL 01/05/2019 U nknown PT [id number] PT 30.5 Seconds 12/15/2018 Unknow n PT 7676944 INR 2.9 12/15/2018 Unknown PT [id number] PT 17.2 Seconds 09/08/2018 Unknow n PT 0461027 INR 1.4 09/08/2018 Unknown [facility] 32728 Cholesterol 190 mg/dL 07/08/2018 Unkno wn [facility] 22911 Triglyceride 402 mg/dL 07/08/2018 Unkn own [facility] 25937 HDL CHOLESTEROL 36 mg/dL 07/08/2018 U nknown [facility] 47671 Chol/HDL Ratio 5.28 ratio 07/08/2018 U nknown [facility] 89893 NON-HDL Chol 154 mg/dL 07/08/2018 Unkn own [facility] 27554 LDL Cholesterol N/A Trig >400 018 Unknown GFR CALC 8213657 GFR Non Afr Amr >60 mL/min 07/08/2018 Un known GFR CALC 6069916 GFR Afr Amr >60 mL/min 07/08/2018 Unknow n COMPLETE BLOOD COUNT [id number] WBC 5.0 10e9/L 07/08/20 18 Unknown COMPLETE BLOOD COUNT [id number] RBC 4.08 10e12/L 2017 Unknown COMPLETE BLOOD COUNT [id number] HEMOGLOBIN 13.3 g/dL 07/08/20 18 Unknown COMPLETE BLOOD COUNT [id number] HEMATOCRIT 38.6 % 07/08/20 18 Unknown COMPLETE BLOOD COUNT [id number] MCV 94.6 fL 8 Unknown COMPLETE BLOOD COUNT [id number] MCH 32.6 pg 8 Unknown COMPLETE BLOOD COUNT 0135645 MCHC 34.5 g/dL 8 Unknown COMPLETE BLOOD COUNT [id number] PLATELET COUNT 205 10e9/L 02/2018 Unknown COMPLETE BLOOD COUNT [id number] Mean Plt Volume 9.8 fL 02/2018 Unknown COMPLETE BLOOD COUNT [id number] Neut Auto 52.8 % 8 Unknown COMPLETE BLOOD COUNT 5550629 Lymph Auto 33.2 % 07/08/20 18 Unknown COMPLETE BLOOD COUNT [id number] Rabun Auto 11.6 % 8 Unknown COMPLETE BLOOD COUNT 1662287 RDW 12.5 % 8 Unknown COMPLETE BLOOD COUNT 8462507 Eos Auto 2.0 % 8 Unknown COMPLETE BLOOD COUNT 7891537 Baso Auto 0.4 % 8 Unknown COMPLETE BLOOD COUNT [id number] Neutrophil Abs 2.64 10e9/L Unknown COMPLETE BLOOD COUNT [id number] Lymphocyte Abs 1.66 10e9/L Unknown COMPLETE BLOOD COUNT [id number] Monocyte Abs 0.58 10e9/L 02/2018 Unknown COMPLETE BLOOD COUNT [id number] Eosinophil Abs 0.10 10e9/L Unknown COMPLETE BLOOD COUNT 6596132 RDW-SD 41.8 fL 8 Unknown COMPLETE BLOOD COUNT [id number] Basophil Abs 0.02 10e9/L 02/2018 Unknown PT 4360071 PT 32.9 Seconds 07/08/2018 Unknow n PT 1656105 INR 3.2 07/08/2018 Unknown PT 6765663 PT TNP:Duplicate Order 8 Unknown PT 2706391 INR TNP:Duplicate Order 8 Unknown COMPREHENSIVE METABOLIC 98180 AST TNP:Duplicate Or grace 07/08/2018 Unknown COMPREHENSIVE METABOLIC 00796 ALT TNP:Duplicate Or grace 07/08/2018 Unknown COMPREHENSIVE METABOLIC 42521 BUN TNP:Duplicate Or grace 07/08/2018 Unknown COMPREHENSIVE METABOLIC 24159 ALBUMIN TNP:Duplicate Or grace 07/08/2018 Unknown COMPREHENSIVE METABOLIC 13748 CHLORIDE TNP:Duplicate Or grace 07/08/2018 Unknown COMPREHENSIVE METABOLIC 54635 Bili Total TNP:Duplicate O rder 07/08/2018 Unknown COMPREHENSIVE METABOLIC 62447 ALK PHOS TNP:Duplicate Or grace 07/08/2018 Unknown COMPREHENSIVE METABOLIC 00893 SODIUM TNP:Duplicate Or grace 07/08/2018 Unknown COMPREHENSIVE METABOLIC 10764 CREATININE TNP:Duplicate O rder 07/08/2018 Unknown COMPREHENSIVE METABOLIC 44295 CALCIUM TNP:Duplicate Or grace 07/08/2018 Unknown COMPREHENSIVE METABOLIC 50755 POTASSIUM TNP:Duplicate Or grace 07/08/2018 Unknown COMPREHENSIVE METABOLIC 66615 Total Protein TNP:Duplicat e Order 07/08/2018 Unknown COMPREHENSIVE METABOLIC 27924 Glucose TNP:Duplicate Or grace 07/08/2018 Unknown COMPREHENSIVE METABOLIC 53949 Bicarbonate TNP:Duplicate Order 07/08/2018 Unknown COMPREHENSIVE METABOLIC 74123 AGAP TNP:Duplicate Or grace 07/08/2018 Unknown COMPREHENSIVE METABOLIC 60295 AST 17 U/L 2017 Unknown COMPREHENSIVE METABOLIC 93557 ALT 12 U/L 2017 Unknown COMPREHENSIVE METABOLIC 03162 BUN 20 mg/dL 2017 Unknown COMPREHENSIVE METABOLIC 16996 ALBUMIN 4.0 g/dL 2017 Unknown COMPREHENSIVE METABOLIC 38297 CHLORIDE 107 mmol/L 07/08 Unknown COMPREHENSIVE METABOLIC 71478 Bili Total 0.3 mg/dL 07/08 Unknown COMPREHENSIVE METABOLIC 20340 ALK PHOS 58 U/L 2017 Unknown COMPREHENSIVE METABOLIC 74853 SODIUM 139 mmol/L 07/08 Unknown COMPREHENSIVE METABOLIC 56101 CREATININE 0.72 mg/dL 02/2018 Unknown COMPREHENSIVE METABOLIC 55589 CALCIUM 7.8 mg/dL 2017 Unknown COMPREHENSIVE METABOLIC 68728 POTASSIUM 4.1 mmol/L 07/08 Unknown COMPREHENSIVE METABOLIC 49323 Total Protein 6.2 g/dL Unknown COMPREHENSIVE METABOLIC 29318 Glucose 107 mg/dL 2017 Unknown COMPREHENSIVE METABOLIC 34419 Bicarbonate 22 mmol/L 02/2018 Unknown COMPREHENSIVE METABOLIC 96965 AGAP 10 mmol/L 2017 Unknown GFR CALC 2484281 GFR Non Afr Amr >60 mL/min 11/28/2017 Un known GFR CALC 6795300 GFR Afr Amr >60 mL/min 11/28/2017 Unknow n THYROID STIMULATING HORMONE 50545 TSH 4.029 uIU/mL 11/28/2017 Unknown [facility] 38303 Cholesterol 181 mg/dL 11/28/2017 Unkno wn [facility] 31802 Triglyceride 193 mg/dL 11/28/2017 Unkn own [facility] 92596 HDL CHOLESTEROL 36 11/28/2017 U nknown [facility] 46809 Chol/HDL Ratio 5.03 ratio 11/28/2017 U nknown [facility] 23172 NON-HDL Chol 145 mg/dL 11/28/2017 Unkn own [facility] 44094 LDL Cholesterol 106 mg/dL 11/28/2017 U nknown PT 2391402 PT 22.2 Seconds 11/28/2017 Unknow n PT 3623651 INR 2.0 11/28/2017 Unknown COMPREHENSIVE METABOLIC 96606 AST 19 U/L 2017 Unknown COMPREHENSIVE METABOLIC 24981 ALT 16 U/L 2017 Unknown COMPREHENSIVE METABOLIC 31987 BUN 22 mg/dL 2017 Unknown COMPREHENSIVE METABOLIC 43944 ALBUMIN 4.1 g/dL 2017 Unknown COMPREHENSIVE METABOLIC 04084 CHLORIDE 108 mmol/L 11/28 Unknown COMPREHENSIVE METABOLIC 10803 Bili Total 0.5 mg/dL 11/28 Unknown COMPREHENSIVE METABOLIC 47983 ALK PHOS 53 U/L 2017 Unknown COMPREHENSIVE METABOLIC 28299 SODIUM 141 mmol/L 11/28 Unknown COMPREHENSIVE METABOLIC 70397 CREATININE 0.83 mg/dL 11/05 Unknown COMPREHENSIVE METABOLIC 41707 CALCIUM 9.1 mg/dL 2017 Unknown COMPREHENSIVE METABOLIC 81080 POTASSIUM 4.6 mmol/L 11/28 Unknown COMPREHENSIVE METABOLIC 45714 Total Protein 6.5 g/dL Unknown COMPREHENSIVE METABOLIC 46462 Glucose 106 mg/dL 2017 Unknown COMPREHENSIVE METABOLIC 75748 Bicarbonate 26 mmol/L 11/05 Unknown COMPREHENSIVE METABOLIC 80632 AGAP 7 mmol/L 2017 Unknown COMPLETE BLOOD COUNT 7188379 WBC 5.1 10e9/L 11/28/19 18 Unknown COMPLETE BLOOD COUNT [id number] RBC 4.22 10e12/L 2017 Unknown COMPLETE BLOOD COUNT 1529015 HEMOGLOBIN 13.5 g/dL 11/28/19 18 Unknown COMPLETE BLOOD COUNT 9006410 HEMATOCRIT 39.1 % 11/28/19 18 Unknown COMPLETE BLOOD COUNT 1311224 MCV 92.7 fL 8 Unknown COMPLETE BLOOD COUNT 7578591 MCH 32.0 pg 8 Unknown COMPLETE BLOOD COUNT 5846859 MCHC 34.5 g/dL 8 Unknown COMPLETE BLOOD COUNT 3141983 PLATELET COUNT 226 10e9/L Unknown COMPLETE BLOOD COUNT 1892434 Mean Plt Volume 9.6 fL Unknown COMPLETE BLOOD COUNT 2409036 Neut Auto 49.5 % 8 Unknown COMPLETE BLOOD COUNT 9554212 Lymph Auto 35.3 % 11/28/19 18 Unknown COMPLETE BLOOD COUNT 5911174 Rabun Auto 12.4 % 8 Unknown COMPLETE BLOOD COUNT 9942653 RDW 12.4 % 8 Unknown COMPLETE BLOOD COUNT 3875958 Eos Auto 2.2 % 8 Unknown COMPLETE BLOOD COUNT 5769183 Baso Auto 0.6 % 8 Unknown COMPLETE BLOOD COUNT 2582977 Neutrophil Abs 2.52 10e9/L Unknown COMPLETE BLOOD COUNT 6776345 Lymphocyte Abs 1.80 10e9/L Unknown COMPLETE BLOOD COUNT 1475305 Monocyte Abs 0.63 10e9/L 11/05 Unknown COMPLETE BLOOD COUNT 6286770 Eosinophil Abs 0.11 10e9/L Unknown COMPLETE BLOOD COUNT 5334282 RDW-SD 41.2 fL 8 Unknown COMPLETE BLOOD COUNT [id number] Basophil Abs 0.03 10e9/L 11/05 Unknown Procedures Procedure Codes Date SARSCOV & INF VIR A&B AG IA CPT-4: 83811 10/04/2021 FLU VACC PRSV FREE INC ANTIG 65 AND OLDER CPT-4: 36311 08/18/2021 FLU VACC PRSV FREE INC ANTIG 65 AND OLDER CPT-4: 08363 08/18/2021 ADMIN INFLUENZA VIRUS VAC CPT-4: G0008 08/18/2021 ROUTINE VENIPUNCTURE CPT-4: 98696 07/05/2021 PROTHROMBIN TIME CPT-4: 05980 07/05/2021 PPPS, subseq visit CPT-4: G0439 10/12/2020 ROUTINE VENIPUNCTURE CPT-4: 09179 04/06/2020 COMPREHEN METABOLIC PANEL CPT-4: 61457 04/06/2020 COMPLETE CBC W/AUTO DIFF WBC CPT-4: 37899 04/06/2020 PROTHROMBIN TIME CPT-4: 15077 04/06/2020 PPPS, subseq visit CPT-4: G0439 09/02/2019 ROUTINE VENIPUNCTURE CPT-4: 63882 09/02/2019 PROTHROMBIN TIME CPT-4: 23701 09/02/2019 FLU VACC PRSV FREE INC ANTIG 65 AND OLDER CPT-4: 80566 08/20/2018 PNEUMOCOCCAL VACC 23 BRIDGET IM CPT-4: 63776 08/20/2018 ADMIN INFLUENZA VIRUS VAC CPT-4: G0008 08/20/2018 ADMIN PNEUMOCOCCAL VACCINE CPT-4: G0009 08/20/2018 PPPS, subseq visit CPT-4: G0439 11/27/2017 FLU VACC PRSV FREE INC ANTIG 65 AND OLDER CPT-4: 65853 08/14/2017 PNEUMOCOCCAL VACC 13 BRIDGET IM CPT-4: 03756 08/14/2017 ADMIN INFLUENZA VIRUS VAC CPT-4: G0008 08/14/2017 ADMIN PNEUMOCOCCAL VACCINE CPT-4: G0009 08/14/2017 FLU VACC PRSV FREE INC ANTIG 65 AND OLDER CPT-4: 09240 10/03/2016 ADMIN INFLUENZA VIRUS VAC CPT-4: G0008 10/03/2016 PPPS, subseq visit CPT-4: G0439 10/10/2015 FLUZONE, 5ML (Medicare) CPT-4: Q2038 09/01/2014 ADMIN INFLUENZA VIRUS VAC CPT-4: G0008 09/01/2014 Vital Signs Date Vital 07/05/2021 Blood Pressure 1: 122/80 Code: 8480-6 Heart Rate 1: 92 bpm Respiratory Rate: 20 bpm SpO2: 96% Temperature: 36.8 (C) / 98.2 (F) We ight: 207 lbs Code: 78760-3 04/26/2021 Blood Pressure 1: 126/82 Code: 8480-6 Heart Rate 1: 104 bpm Respiratory Rate: 20 bpm SpO2: 96% Temperature: 36.7 (C) / 98.1 (F) We ight: 212 lbs Code: 50362-4 10/12/2020 Blood Pressure 1: 104/68 Code: 8480-6 BMI: 31.6 Code: 60719-7 Heart Rate 1: 96 bpm Height: 5'7" Code: 8302-2 Respiratory Rate: 20 bpm SpO2: 95% Temperature: 36.9 (C) / 98.5 (F) Weight: 202 lbs Code: 97678-7 07/13/2020 Blood Pressure 1: 128/72 Code: 8480-6 Heart Rate 1: 76 bpm Respiratory Rate: 18 bpm SpO2: 97% Temperature: 36.3 (C) / 97.3 (F) We ight: 190 lbs Code: 10073-2 04/06/2020 Blood Pressure 1: 106/68 Code: 8480-6 BMI: 29.1 Code: 42366-5 Heart Rate 1: 96 bpm Height: 5'7" Code: 8302-2 Respiratory Rate: 20 bpm SpO2: 96% Temperature: 36.8 (C) / 98.2 (F) Weight: 186 lbs Code: 07578-8 09/02/2019 Blood Pressure 1: 94/50 Code: 8480-6 BMI: 29.8 C ode: 74186-7 Heart Rate 1: 68 bpm Height: 5'7" Code: 8302-2 Respiratory Rate: 20 bpm SpO2: 96% Temperature: 36.6 (C) / 97.9 (F) Weight: 190 lbs Code: 43767-3 07/01/2019 Blood Pressure 1: 112/60 Code: 8480-6 Heart Rate 1: 88 bpm Respiratory Rate: 20 bpm SpO2: 94% Temperature: 36.8 (C) / 98.2 (F) We ight: 201 lbs Code: 60835-9 05/27/2019 Blood Pressure 1: 104/50 Code: 8480-6 Heart Rate 1: 62 bpm SpO2: 95% Temperature: 36.3 (C) / 97.4 (F) Weight: 204 lbs Code: 13571-5 04/22/2019 Blood Pressure 1: 112/72 Code: 8480-6 Heart Rate 1: 64 bpm Respiratory Rate: 20 bpm SpO2: 95% Temperature: 36.8 (C) / 98.2 (F) We ight: 207 lbs Code: 24037-0 02/09/2019 Blood Pressure 1: 104/60 Code: 8480-6 Heart Rate 1: 72 bpm Respiratory Rate: 20 bpm SpO2: 95% Temperature: 37.1 (C) / 98.8 (F) We ight: 216 lbs Code: 03927-8 01/07/2019 Blood Pressure 1: 122/74 Code: 8480-6 Heart Rate 1: 96 bpm Respiratory Rate: 20 bpm SpO2: 96% Temperature: 36.7 (C) / 98.1 (F) We ight: 219 lbs Code: 81079-4 07/09/2018 Blood Pressure 1: 118/65 Code: 8480-6 Heart Rate 1: 62 bpm SpO2: 94% Temperature: 36.2 (C) / 97.1 (F) Weight: 237 lbs Code: 47190-2 11/27/2017 Blood Pressure 1: 124/70 Code: 8480-6 BMI: 35.2 Code: 89760-2 Heart Rate 1: 64 bpm Height: 5'8" Code: 8302-2 Respiratory Rate: 20 bpm SpO2: 94% Temperature: 36.9 (C) / 98.5 (F) Weight: 235 lbs Code: 00691-4 10/10/2015 Blood Pressure 1: 126/78 Code: 8480-6 BMI: 36.0 Code: 14938-4 Heart Rate 1: 72 bpm Height: 5'8" Code: 8302-2 Respiratory Rate: 20 bpm Temperatu re: 36.9 (C) / 98.4 (F) Weight: 240 lbs Code: 08075-1 09/01/2014 Blood Pressure 1: 114/70 Code: 8480-6 BMI: 35.4 Code: 38681-1 Heart Rate 1: 76 bpm Height: 5'8" Code: 8302-2 Respiratory Rate: 20 bpm Temperatu re: 36.7 (C) / 98.1 (F) Weight: 236 lbs Code: 31979-9 07/02/2013 Blood Pressure 1: 124/90 Code: 8480-6 BMI: 33.7 Code: 93250-1 Heart Rate 1: 76 bpm Height: 5'8" Code: 8302-2 Respiratory Rate: 20 bpm Temperatu re: 36.6 (C) / 97.8 (F) Weight: 225 lbs Code: 98402-1 06/25/2012 Blood Pressure 1: 144/100 Code: 8480-6 BMI: 34.5 Code: 01010-4 Heart Rate 1: 76 bpm Height: 5'8" Code: 8302-2 Respiratory Rate: 20 bpm Temperatu re: 36.6 (C) / 97.9 (F) Weight: 230 lbs Code: 78588-6 05/15/2012 Blood Pressure 1: 112/70 Code: 8480-6 BMI: 34.6 Code: 38330-8 Heart Rate 1: 76 bpm Height: 5'8" Code: 8302-2 Respiratory Rate: 20 bpm Temperatu re: 37.0 (C) / 98.6 (F) Weight: 231 lbs Code: 52868-5 12/06/2011 Blood Pressure 1: 142/90 Code: 8480-6 BMI: 35.4 Code: 03511-8 Heart Rate 1: 72 bpm Height: 5'8" Code: 8302-2 Respiratory Rate: 20 bpm Temperatu re: 36.9 (C) / 98.4 (F) Weight: 236 lbs Code: 81255-4 10/30/2010 Blood Pressure 1: 114/78 Code: 8480-6 Heart Rate 1: 76 bpm Temperature: 36.3 (C) / 97.4 (F) Weight: 228 lbs Code: 46769-4 Functional Status No Functional Status data Reason For Visit Reason For Visit Effective Dates Notes cough 10/04/2021 positive for CO VID per [...] Encounters Encounter Performer Location Codes Date () NURSE/OUTPATIENT VISIT EST Diagnosis: Cough[ICD10: R05.9] Diagnosis: Exposure to COVID-19 virus[ICD10: Z20.822] Arlyn FAUSTIN RmDiane [facility] CPT-4: 99876 10/04/2021 ([id number]) NURSE/OUTPATIENT VISIT EST Diagnosis: FLU VACCINE[ICD10: Z23] Arlyn CRAMERQUELINE RmDiane BRAYDON MOS[facility] CPT-4: 73577 08/18/2021 ([id number]) OFFICE/OUTPATIENT VISIT EST Diagnosis: Parkinson disease[ICD10: G20] Diagnosis: alf (current) use of anticoagulants[ICD10: Z79.01] Arlyn Ellisjerryestella ARLYN RmDiane [facility] CPT-4: 48482 07/05/2021 ([id number]) OFFICE/OUTPATIENT VISIT EST Diagnosis: Parkinson disease[ICD10: G20] Diagnosis: Dementia[ICD10: F03.90] Arlyn FAUSTIN RmDiane BRAYDON [facility] CPT-4: 46754 04/26/2021 ([id number]) OFFICE/OUTPATIENT VISIT EST Diagnosis: 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] Diagnosis: 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: G30.9] Arlyn FAUSTIN RmDiane [facility] CPT-4: 11806 07/13/2020 ([id number]) OFFICE/OUTPATIENT VISIT EST Diagnosis: Alzheimer's disease, unspecified[ICD10: G30.9] Arlyn LOPEZ [facility] CPT-4: 14583 04/06/2020 ([id number]) OFFICE/OUTPATIENT VISIT EST Diagnosis: Alzheimer's disease with late onset[ICD10: G30.1] Diagnosis: Generalized anxiety disorder[ICD10: F41.1] Diagnosis: Unspecified dementia with behavioral disturbance[ICD10: F03.91] Arlyn Corraljerryestella FERMINARLYN RmDiane JULIO [facility] CPT-4: 27251 07/01/2019 ([id number]) OFFICE/OUTPATIENT VISIT EST Diagnosis: Alzheimer's disease with late onset[ICD10: G30.1] Diagnosis: Abnormal weight loss[ICD10: R63.4] Diagnosis: Essential (primary) hypertension[ICD10: I10] Diagnosis: Melena[ICD10: K92.1] Diagnosis: Unspecified dementia with behavioral disturbance[ICD10: F03.91] Diagnosis: Spontaneous ecchymoses[ICD10: R23.3] Arlyn Ellisjerryestella JENY KALEY Krish BRYSON [facility] CPT-4: 80126 05/27/2019 ([id number]) OFFICE/OUTPATIENT VISIT EST Diagnosis: 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] Diagnosis: Alzheimer's disease with late onset[ICD10: G30.1] Diagnosis: Melena[ICD10: K92.1] Diagnosis: Abnormal weight loss[ICD10: R63.4] Arlyn VENEGAS Krish LOPEZ [facility] CPT-4: 32830 04/22/2019 ([id number]) OFFICE/OUTPATIENT VISIT EST Diagnosis: 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] Diagnosis: Slow transit constipation[ICD10: K59.01] Diagnosis: Unspecified dementia with behavioral disturbance[ICD10: F03.91] Arlyn FAUSTIN RmDiane JULIO [facility] CPT-4: 00556 02/09/2019 ([id number]) OFFICE/OUTPATIENT VISIT EST Diagnosis: Alzheimer's disease with late onset[ICD10: G30.1] Diagnosis: 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] Diagnosis: Nocturia[ICD10: R35.1] Diagnosis: Constipation, unspecified[ICD10: K59.00] Arlyn LOPEZ DO [facility] CPT-4: 62790 01/07/2019 ([id number]) NURSE/OUTPATIENT VISIT EST Diagnosis: FLU VACCINE[ICD10: Z23] Diagnosis: PNEUMOCOCCAL VACCINE[ICD10: Z23] Arlyn LOPEZ DO [facility] CPT-4: 25928 08/20/2018 ([id number]) OFFICE/OUTPATIENT VISIT EST Diagnosis: Mixed hyperlipidemia[ICD10: E78.2] Diagnosis: Essential (primary) hypertension[ICD10: I10] Diagnosis: Alzheimer's disease, unspecified[ICD10: G30.9] Arlyn LOPEZ DO [facility] CPT-4: 95412 07/09/2018 ([id number]) OFFICE/OUTPATIENT VISIT EST Diagnosis: PNEUMOCOCCAL VACCINE[ICD10: Z23] Diagnosis: FLU VACCINE[ICD10: Z23] Arlyn MOSQUERA [facility] CPT-4: 86319 08/14/2017 ([id number]) OFFICE/OUTPATIENT VISIT EST Diagnosis: FLU VACCINE[ICD10: Z23] Arlyn MOSQUERA [facility] CPT-4: 68078 10/03/2016 ([id number]) OFFICE/OUTPATIENT VISIT EST Diagnosis: HYPERTENSION[ICD9: 401.9] Diagnosis: HYPERLIPIDEMIA NEC/NOS[ICD9: 272.4] Diagnosis: MEMORY LOSS[ICD9: 780.93] Diagnosis: - I - ANXIETY STATE NOS[ICD9: 300.00] Diagnosis: FLU VACCINE[ICD10: Z23] Arlyn MOSQUERA [facility] CPT-4: 23672 09/01/2014 OFFICE/OUTPATIENT VISIT EST Diagnosis: HYPERTENSION[ICD9: 401.9] Diagnosis: CAD[ICD9: 414.00] Diagnosis: HYPERLIPIDEMIA NEC/NOS[ICD9: 272.4] Diagnosis: MEMORY LOSS[ICD9: 780.93] Diagnosis: ANXIETY STATE NOS[ICD9: 300.00] Diagnosis: Testicular pain[ICD9: 608.9] Arlyn LOPEZ DO [facility] CPT-4: 99633 07/02/2013 ([id number]) OFFICE/OUTPATIENT VISIT EST Diagnosis: MEMORY LOSS[ICD9: 780.93] Arlyn FAUSTIN RmDiane ELLIS [facility] CPT-4: 25084 06/25/2012 ([id number]) OFFICE/OUTPATIENT VISIT EST Diagnosis: HYPERLIPIDEMIA NEC/NOS[ICD9: 272.4] Diagnosis: HYPERTENSION[ICD9: 401.9] Diagnosis: CAD[ICD9: 414.00] Diagnosis: MEMORY LOSS[ICD9: 780.93] Arlyn FAUSTIN RmDiane ELLIS N[facility] CPT-4: 82115 05/15/2012 PER PM REEVAL EST PAT 65+ YR Diagnosis: ROUTINE MEDICAL EXAM[ICD9: V70.0] Diagnosis: HYPERLIPIDEMIA NEC/NOS[ICD9: 272.4] Diagnosis: HYPERTENSION[ICD9: 401.9] Diagnosis: CAD[ICD9: 414.00] Diagnosis: Seborrheic dermatitis[ICD9: 690.10] Arlyn Rutherford [facility] CPT-4: 88091 12/06/2011 ([id number]) OFFICE/OUTPATIENT VISIT, EST Arlyn GENTILE RmDiane [facility] CPT-4: 51747 10/30/2010 Plan of Care Planned Activity Notes Codes Status Date Appointment: Arlyn Lopezl: [address] [place], [place] [phone] US LAB 10/04/2021 Appointment: Arlyn Lopez WPtel: [address] [place], [place] [phone] Immunizations 08/18/2021 Visit Diagnosis Plan: Parkinson disease Discussion: In crease sinemet 25/100mg 2po BID Call in 1month ICD-9 : 332.0 ICD-10 : G20 07/05/2021 Visit Diagnosis Plan: alf (current) use of antic oagulants Discussion: PT/INR drawn ICD-9 : V58.61 ICD-10 : Z79.01 07/05/2021 Appointment: Arlyn Lopez WPtel: [address] [place], [place] [phone] US FOLLOW UP 07/05/2021 Visit Diagnosis Plan: Parkinson disease Discussion: Tr ial of sinemet 25/100mg po BID Fwup 2mos ICD-9 : 332.0 ICD-10 : G20 04/26/2021 Appointment: Arlyn Lopez WPtel: [address] [place], [place] [phone] US FOLLOW UP 04/26/2021 Appointment: Arlyn Lopez WPtel: [address] [place], [place] [phone] US CANCELED 01/11/2021 Visit Diagnosis Plan: Encounter for [facility] adult medical examination without abnormal findings [...] ICD-10 : G30.1 10/12/2020 Visit Diagnosis Plan: alf (current) use of antic oagulants Discussion: Update PT/INR ICD-9 : V58.61 ICD-10 : Z79.01 10/12/2020 Appointment: Arlyn Lopez WPtel: [address] [place], [place] [phone] [place] Annual Well Visit 10/12/2020 Visit Diagnosis [...] 6 months ICD-10 : F02.81 07/13/2020 Appointment: Arlyn Lopez WPtel: [address] [place], [place] [phone] [place] FOLLOW UP 07/13/2020 Care Plan: PT Pending 06/27/2020 Visit Diagnosis Plan: Alzheimer's disease, unspecified Discussion: Worsening has started OTC supplements Inquiring about meals on wheels Follow Up: 3 months ICD-9 : 331.0 ICD-10 : G30.9 04/06/2020 Appointment: [facility] [phone] [facility] [place] [place] 04/06/2020 Care Plan: Referral Order SNOMED-CT : [id number] Pending 04/06/2020 Appointment: Arlyn Lopez WPtel: [phone] [facility] [place] RESCHEDULED 02/24/2020 Care Plan: COM[place] : 21206-3 Pending 12/14/2019 Care Plan: LIPID PANEL LOINC : 42878-8 Pending 12/14/2019 Care Plan: PT Pending 12/14/2019 [...] : V58.61 ICD-10 : Z51.81 09/02/2019 Appointment: [facility] Lopez [facility] [phone] [facility] [place] [place] 2 mo follow up Annual Well Visit 08/06 Visit Diagnosis Plan: Generalized anxiety disorder Dis cussion: Depakote already helping Follow Up: 2 months ICD-9 : 300.00 ICD-10 : F41.1 07/01/2019 Appointment: Arlyn Lopez WPtel: [address] [place] [address] [place] FOLLOW UP 07/01/2019 Visit Diagnosis Plan: [...] : 578.1 ICD-10 : K92.1 05/27/2019 Appointment: Arlyn Lopez WPtel: [address] [place] [address] [place] FOLLOW UP 05/27/2019 Visit Diagnosis Plan: [...] : 780.52 ICD-10 : F51.04 04/22/2019 Appointment: Arlyn Lopeztel: [address] [place] [address] [place] FOLLOW UP 04/22/2019 Visit Diagnosis Plan: [...] : 564.01 ICD-10 : K59.01 02/09/2019 Appointment: Arlyn Lopez WPtel: [facility] [place] [place] FOLLOW UP 02/09/2019 Patient Education: escitalopram oxalate- [employer] C[employer]on [id number] Completed 02/09/2019 Patient Education: doxepin- [employer]on [id number] Completed 02/09/2019 Visit Diagnosis Plan: Nocturia Discussion: [...] : 780.52 ICD-10 : F51.04 01/07/2019 Appointment: Arlyn Lopez WPtel: [facility] [place] [place] UP 01/07/2019 Patient Education: tamsulosin- [employer] C[employer]on [id number] Completed 01/07/2019 Patient Education: doxepin- [employer] Coupon [id number] Completed 01/07/2019 Care Plan: COMPRE[place] : 44070-2 Pending 12/17/2018 Care Plan: CBC Pending 12/17/2018 Care Plan: LIPID PANEL LOINC : 03341-8 Pending 12/17/2018 App[facility]ment: Ar[facility] Lopez [facility] [phone] [facility] [id number] [place] INJECTION 08/20/2018 Patient Education: Patient Medication [...] : 401.9 ICD-10 : I10 07/09/2018 Appointment: Arlyn Lopez WPtel: [facility] FOLLOW UP 07/09/2018 Patient Education: Patient Medication Summary Completed 07/09/2018 Visit Diagnosis Plan: Generalized anxiety disorder Dis cussion: Add lexapro 10mg q HS ICD-9 : 300.00 ICD-10 : F41.1 11/27/2017 Visit Diagnosis Plan: Alzheimer's disease, unspecified Discussion: Change Namenda XR to Namenda 10mg po BI Follow Up: 3 months ICD-9 : 331.0 ICD-10 : G30.9 11/27/2017 Visit Diagnosis Plan: Encounter for [facility] medical examination without abnormal findings Discussion: Update fasting lab ICD-9 : V70.0 ICD-10 : Z00.00 11/27/2017 Appointment: Ar[facility] Lopez [facility]el[facility] [phone] [facility] [place] Annual Well Visit 11/27/2017 Patient Education: Patient Medication Summary Completed 11/27/2017 Patient Education: Patient Medication Summary Completed 11/14/2017 Care Plan: CBC Pending 11/14/2017 Care Plan: PT Pending 11/14/2017 Care Plan: COMPREH[place]AB[place] : 07515-9 Pending 11/14/2017 Care Plan: LIPID PANEL LOINC : 25241-0 Pending 11/14/2017 Care Plan: ASSAY THYROID STIM HORMONE [place] 11/14/2017 Appointment: Arlyn Lopez WPtel: [address] [place], [place] [phone] [place] INJECTION 08/14/2017 Patient Education: Patient Medication Summary Completed 08/14/2017 Appointment: Arlyn Lopez WPtel: [address] [place], [place] [phone] [place] INJECTION 10/03/2016 Patient Education: Patient Medication Summary Completed 10/03/2016 Patient Education: Patient Medication Summary Completed 01/02/2016 Care Plan: CBC Ordered 01/02/2016 Visit Plan: Check fasting lab with next PT/INR Continue current meds Discussed trial of PPI but states gaviscon works if will take so will just try it 10/10/2015 Appointment: Arlyn Lopez WPtel: [address] [place], [place] [id number] 10/07/15 appt confirmed cn Annual Well Visit 05/2015 Patient Education: Patient Medication Summary Completed 10/10/2015 Appointment: Arlyn Lopez WPtel: [address] [place] [address] 08/31 no answer cell # 08/31 vm 2nd # FOLLOW UP 09/01/2014 Patient Education: Patient Medication Summary Completed 09/01/2014 Patient Education: Patient Medication Summary Completed 08/23/2014 Visit Plan: Lab discussed Check testicul ar US Change namenda to Namenda XR 23mg QD Check PSA 07/02/2013 Appointment: Arlyn Lopez WPtel: [address] [place], [place] [phone] ACUTE ILLNESS 07/02/2013 Patient Education: Patient Medication Summary Completed 07/02/2013 Visit Plan: Continue namenda 10mg po BID Discussed aricept 06/25/2012 Appointment: Arlyn Lopez WPtel: [address] [place], [place] [phone] [place] confirmed w ACUTE ILLNESS 06/25/2012 Patient Education: Patient Medication Summary Completed 06/25/2012 Appointment: Arlyn Lopez WPtel: [address] [place] [address] [place] FOLLOW UP 05/15/2012 Patient Education: Patient Medication Summary Completed 05/15/2012 Visit Plan: Continue current meds Lab di scussed Long discussion about meds, diet, exercise and weight loss for decreasing TG and elevating HDL Add Nystatin/TAC cream to use prn 12/06/2011 Appointment: Arlyn Lopez WPtel: [address] [place] [address] CHECK UP 12/06/2011 Patient Education: Patient Medication Summary Completed 12/06/2011 Visit Plan: Check fasting lab--CMP, lipi ds, PSA, PT/INR Loan deferment paperwork filled out 10/30/2010 Appointment: Arlyn Lopez WPtel: [address] [place] [address] [place] ESTABLISHED PATIENT 10/30/2010 Patient Education: Patient Medication Summary Completed 10/30/2010 Referral: Angeline Arellano WPtel: [address] [place] [address] [place] Referral Appointment Requested Instructions Comment . Check [...]
--- OUTSIDE RECORDS SUMMARY | 2021-10-12 10:15 | XMS REPORT | CCD ---
Author Author Ronnie Lopez D.O. Organization [facility] Address [address] [place] [address] Phone Care Team Providers Care Bridge Engineer Name Role Phone Arlyn Lopez D.O., PP Unavailable CCM Unavailable Summary Purpose Interface Exchange Insurance Providers Payer name Policy type / Coverage type Covered republican ID Effective Begin Date Effective End Date [employer] AD[employer] Medicare [id number] Unknown Family History Family History data not found Social History Social History Element Codes Description Effective Dates Marital status Unknown 12/06/[address]: 2605643 Former smoker 2000 12/06/2011 Allergies, Adverse Reactions, [...] VACCINE ICD-10: Z23 ICD-9: V04.81 10/02/2016 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 01 [...] 788.43 01/07/2019 Active Atherosclerotic heart disease of [place] coronary arter y without angina pectoris ICD-10: [...] Intensol 1 mg/mL Drops (concentrate) RxNorm: 3 47059 Take 5 Drop(s) Oral QD 10/05/2021 10/09/2021 Active Zithromax 200 mg/5 mL oral suspension RxNorm: 249218 Ta ke 12.5 Milliliter(s) Oral QD 10/05/2021 10/09/2021 Active albuterol sulfate HFA 90 mcg/actuation aerosol inhaler RxNor m: 5879250 Inhale 2 Puff(s) Inhalation Q4H as needed 10/05/2021 10/05/2021 Inactive albuterol sulfate HFA 90 mcg/actuation aerosol inhaler RxNor m: 1189224 Inhale 2 Puff(s) Inhalation Q4H as needed 10/05/2021 10/05/2021 Inactive memantine 10 mg tablet RxNorm: 148008 TAKE 1 TABLET TWI CE DAILY (REPLACES NAMENDA XR) 10/04/2021 04/01/2022 Active escitalopram 20 mg tablet RxNorm: 770765 TAKE 1 TABLET AT BEDTIME 1 12/05/2020 04/01/2022 Active warfarin 2 mg tablet RxNorm: 451377 TAKE 1 AND 1/2 TABL ETS ON SATURDAY, SATURDAY, SATURDAY, SATURDAY AND TAKE 2 TABLETS ON SATURDAY, SATURDAY AND Saturday08/23/2021 11/20/2021 Active tamsulosin 0.4 mg capsule RxNorm: 121875 TAKE 1 CAPSULE EVERY DAY 0 06/26/2021 09/23/2021 Inactive carbidopa 25 mg-levodopa 100 mg tablet RxNorm: 547978 T PHAM 1 TABLET TWICE DAILY FOR TREMORS 06/26/2021 07/04/2021 Inactive memantine 10 mg tablet RxNorm: 296508 TAKE 1 TABLET TWI CE DAILY (REPLACES NAMENDA XR) 06/26/2021 06/26/2021 Inactive escitalopram 20 mg tablet RxNorm: 901733 TAKE 1 TABLET AT BEDTIME 0 06/26/2021 06/26/2021 Inactive warfarin 2 mg tablet RxNorm: 725626 TAKE 1 AND 1/2 TABL ETS ON SATURDAY, SATURDAY, SATURDAY, SATURDAY AND TAKE 2 TABLETS ON SATURDAY, SATURDAY AND Saturday06/26/2021 06/26/2021 Inactive Sinemet 25 mg-100 mg tablet RxNorm: 313202 Take 1 Table t(s) Oral two times a day for tremors 04/26/2021 04/26/2021 Inactive memantine 10 mg tablet RxNorm: 761409 TAKE 1 TABLET TWI CE DAILY (REPLACES NAMENDA XR) 04/12/2021 04/12/2021 Inactive warfarin 2 mg tablet RxNorm: 573436 2 Tablet(s) Oral Mo through Saturday and 1.5 tablets on Saturday/Saturday01/19/2021 No Stop Date Active tamsulosin 0.4 mg capsule RxNorm: 601467 TAKE 1 CAPSULE EVERY DAY 0 12/19/2020 12/19/2020 Inactive warfarin 2 mg tablet RxNorm: 890638 TAKE 1 AND 1/2 TABL ETS ON SATURDAY, SATURDAY, SATURDAY, SATURDAY AND TAKE 2 TABLETS ON SATURDAY, SATURDAY AND Saturday12/12/2020 01/18/2021 Inactive escitalopram 20 mg tablet RxNorm: 021211 TAKE 1 TABLET AT BEDTIME 0 11/28/2020 11/28/2020 Inactive Namenda 10 mg tablet RxNorm: 615513 TAKE 1 TABLET TWICE DAILY (REPLACES NAMENDA XR) 10/17/2020 10/17/2020 Inactive melatonin 10 mg capsule RxNorm: 469460 1 Capsule(s) Oral QD 020 No Stop Date Active tamsulosin 0.4 mg capsule RxNorm: 274783 TAKE 1 CAPSULE EVERY DAY 1 12/18/2020 Inactive warfarin 2 mg tablet RxNorm: 298451 TAKE 1 AND 1/2 TABL ETS ON SATURDAY, SATURDAY, SATURDAY, SATURDAY AND TAKE 2 TABLETS ON SATURDAY, SATURDAY AND Saturday07/12/2020 12/11/2020 Inactive warfarin 2 mg tablet RxNorm: 042553 TAKE 1 AND 1/2 TABL ETS ON SATURDAY, SATURDAY, SATURDAY, SATURDAY AND TAKE 2 TABLETS ON SATURDAY, SATURDAY AND Saturday06/27/2020 07/11/2020 Inactive Namenda 10 mg tablet RxNorm: 882922 TAKE 1 TABLET TWICE DAILY (REPLACES NAMENDA XR) 04/18/2020 10/16/2020 Inactive tamsulosin 0.4 mg capsule RxNorm: 307121 1 Capsule(s) Oral QD 02/1108/10/2020 Inactive Depakote ER 250 mg tablet,extended release RxNorm: 8412815 1 Tab let(s) Oral QPM 01/21/2020 04/20/2020 Inactive warfarin 2 mg tablet RxNorm: 715027 TAKE 1 AND 1/2 TABL ETS ON SATURDAY, SATURDAY, SATURDAY AND SATURDAY AND TAKE 2 TABLETS ON SATURDAY, SATURDAY AND Saturday12/14/2019 06/26/2020 Inactive escitalopram 20 mg tablet RxNorm: 689433 TAKE 1 TABLET AT BEDTIME 0 11/16/2019 11/27/2020 Inactive Namenda 10 mg tablet RxNorm: 581308 TAKE 1 TABLET TWICE DAILY (REPLACES NAMENDA XR) 10/08/2019 04/17/2020 Inactive tamsulosin 0.4 mg capsule RxNorm: 424512 1 Capsule(s) Oral QD 09/0202/11/2020 Inactive warfarin 2 mg tablet RxNorm: 570976 1.5 Tablet(s) PO on , , Sat, and Sun and 2 tablets on Sat, Sat, Sat07/13/2019 07/12/2019 Inactive Depakote ER 250 mg tablet,extended release RxNorm: 9569568 1 Tab let(s) PO BID 06/08/2019 09/05/2019 Inactive pravastatin 80 mg tablet RxNorm: 017470 TAKE 1 TABLET EVERY DAY 11/201809/01/2019 Inactive warfarin 2 mg tablet RxNorm: 183164 TAKE 1 AND 1/2 TABS ON SATURDAY,SATURDAY AND SATURDAY AND TAKE 2 TABS ON , , SAT AND SUN (NEED MD APPOINTMENT) 03/09/2019 07/13/2019 Inactive Namenda 10 mg tablet RxNorm: 104318 TAKE 1 TABLET TWICE DAILY (REPLACES NAMENDA XR) 02/09/2019 08/07/2019 Inactive doxepin 25 mg capsule RxNorm: 6779512 1 Capsule(s) PO QH S for sleep replaces 10mg dose 02/09/2019 04/21/2019 Inactive escitalopram 20 mg tablet RxNorm: 582113 1 Tablet(s) PO QHS 019 08/07/2019 Inactive tamsulosin 0.4 mg capsule RxNorm: 786421 1 Capsule(s) P O QPM for urinary frequency 01/07/2019 02/12/2020 Inactive divalproex 250 mg tablet,delayed release RxNorm: 7616479 1 Table t(s) PO QHS 01/07/2019 01/07/2019 Inactive doxepin 10 mg capsule RxNorm: 0127271 1-2 Capsule(s) PO QHS as n eeded for sleep 01/07/2019 02/08/2019 Inactive warfarin 2 mg tablet RxNorm: 478813 1 1/2 Tablet(s) PO MWF and 2 tablets on Sat and Sun 12/29/2018 03/08/2019 Inactive metoprolol tartrate 50 mg tablet RxNorm: 929399 TAKE 1 TABLET T WICE DAILY 12/01/2018 06/30/2019 Inactive Namenda 10 mg tablet RxNorm: 567931 TAKE 1 TABLET TWICE DAILY (REPLACES NAMENDA XR) 09/22/2018 02/08/2019 Inactive warfarin 2 mg tablet RxNorm: 013004 1 1/2 Tablet(s) PO MWF and 2 tablets on T Th Sat and Sun 09/02/2018 09/01/2018 Inactive escitalopram 10 mg tablet RxNorm: 212091 1 Tablet(s) PO QHS 018 02/08/2019 Inactive pravastatin 80 mg tablet RxNorm: 000574 1 Tablet(s) PO QD 01/28/2018 10/24/2018 Inactive Namenda 10 mg tablet RxNorm: 212844 1 Tablet(s) PO BID 11/27/2017 Inactive escitalopram 10 mg tablet RxNorm: 317470 1 Tablet(s) PO QHS 018 06/09/2018 Inactive Namenda XR 28 mg capsule sprinkle,extended release RxNorm: 9 08150 TAKE ONE CAPSULE BY MOUTH ONCE DAILY 10/10/2017 11/26/2017 Inactive metoprolol tartrate 50 mg tablet RxNorm: 184098 Tablet( s) TAKE 1 TABLET TWICE DAILY 10/03/2017 09/27/2018 Inactive warfarin 2 mg tablet RxNorm: 740183 Tablet(s) TAKE 2 TA BLETS SATURDAY THROUGH SATURDAY AND 1 TABLET SATURDAY AND Saturday05/09/2017 09/02/2018 Inactive divalproex 250 mg tablet,delayed release RxNorm: 2664469 TAKE 1 TABLET TWICE DAILY 02/19/2017 01/06/2019 Inactive Namenda XR 28 mg capsule sprinkle,extended release RxNorm: 9 19812 TAKE 1 CAPSULE EVERY DAY 02/11/2017 10/09/2017 Inactive pravastatin 80 mg tablet RxNorm: 207613 1 Tablet(s) PO QD 01/21/2017 01/28/2018 Inactive Namenda XR 28 mg capsule sprinkle,extended release RxNorm: 9 40044 TAKE ONE CAPSULE BY MOUTH ONCE DAILY 09/24/2016 02/10/2017 Inactive metoprolol tartrate 50 mg tablet RxNorm: 732020 TAKE 1 TABLET T WICE DAILY 09/10/2016 10/03/2017 Inactive warfarin 2 mg tablet RxNorm: 620892 TAKE 2 TABLETS THROUGH SATURDAY AND 1 TABLET SATURDAY AND Saturday2016 05/09/2017 Inactive divalproex 250 mg tablet,delayed release RxNorm: 8310313 1 Table t(s) PO QHS 12/19/2015 12/12/2016 Inactive pravastatin 80 mg tablet RxNorm: 697581 1 Tablet(s) PO QD 12/19/2015 01/21/2017 Inactive Namenda XR 28 mg capsule sprinkle,extended release RxNorm: 9 57235 1 Capsule(s) PO QD 11/11/2015 09/23/2016 Inactive divalproex 250 mg tablet,delayed release RxNorm: 3061602 1 Table t(s) PO QHS 10/10/2015 12/19/2015 Inactive Namenda XR 28 mg capsule sprinkle,extended release RxNorm: 9 56081 1 Capsule(s) PO QD TAKE 1 CAPSULE EVERY DAY 11/09/2014 11/11/2015 Inactive Namenda XR 28 mg capsule sprinkle,ER 24hr RxNorm: 891671 1 PO QD TAKE ONE CAPSULE BY MOUTH ONCE DAILY 10/07/2014 11/09/2014 Inactive Namenda XR 28 mg capsule sprinkle,ER 24hr RxNorm: 643024 1 Caps ule(s) PO QD 11/10/2013 10/07/2014 Inactive metoprolol tartrate 50 mg tablet RxNorm: 666692 1 Tablet(s) PO BID 05/14/2013 05/08/2014 Inactive 1BID (REPLACES TOPROL) - [place] E ONE TABLET BY MOUTH TWICE DAILY (REPLACES TOPROL) Ativan 1 mg tablet RxNorm: 486472 1 Tablet(s) PO BID 05/01/201310/09 Inactive as needed for anxiety pravastatin 40 mg tablet RxNorm: 745928 1 Tablet(s) PO QD due for labs in late summer03/26/2013 11/10/2014 Inactive warfarin 2 mg tablet RxNorm: 610113 1 Tablet(s) PO Take 2 tablets by mouth Saturday through Saturday and 1 tablet on Saturday and Saturday10/07/2012 Inactive pravastatin 40 mg tablet RxNorm: 800147 1 Tablet(s) PO QD 08/13/2012 03/26/2013 Inactive metoprolol tartrate 50 mg tablet RxNorm: 107250 1 Tablet(s) PO BID 08/13/2012 05/14/2013 Inactive 1BID (REPLACES TOPROL) - [place] E ONE TABLET BY MOUTH TWICE DAILY (REPLACES TOPROL) warfarin 2 mg tablet RxNorm: 522803 1 Tablet(s) PO QD 08/13/201202/2012 Inactive warfarin 2 mg tablet RxNorm: 205654 Tablet(s) PO 11/07/2011 08/13/2012 Inactive 2QD - TAKE TWO TABLETS BY MOUTH EVERY DAY SATURDAY THROUGH SATURDAY AND 1 TABLET ON SATURDAY AND SATURDAY pravastatin 40 mg tablet RxNorm: 279450 1 Tablet(s) PO QD 10/15/2011 08/13/2012 Inactive Ativan 1 mg tablet RxNorm: 561853 1 Tablet(s) PO BID 10/01/201109/30 Active as needed for anxiety metoprolol tartrate 50 mg tablet RxNorm: 987231 1 Tablet(s) PO BID 08/27/2011 08/13/2012 Inactive 1BID (REPLACES TOPROL) - [place] E ONE TABLET BY MOUTH TWICE DAILY (REPLACES TOPROL) pravastatin 40 mg Tab RxNorm: 128685 1 Tablet(s) PO QD 07/10/201109/2011 Inactive Ativan 1 mg Tab RxNorm: 118627 1 Tablet(s) PO BID 07/02/2011 1 Active as needed for anxiety metoprolol tartrate 50 mg Tab RxNorm: 402636 1 Tablet(s ) PO BID 1BID (REPLACES TOPROL) - TAKE ONE TABLET BY MOUTH TWICE DAILY (REPLACES TOPROL) 03/12/2011 08/26/2011 Inactive Ativan 1 mg Tab RxNorm: 705317 1 Tablet(s) PO BID as needed for anxiety 02/26/2011 02/25/2011 Active warfarin 2 mg Tab RxNorm: 576727 Tablet(s) PO 2QD - T PHAM TWO TABLETS BY MOUTH EVERY DAY SATURDAY THROUGH SATURDAY AND 1 TABLET ON SATURDAY AND Saturday12/18/2010 11/07/2011 Inactive Ativan 1 mg Tab RxNorm: 679741 1 Tablet(s) PO BID PRN for anxiety 0 11/06/2010 01/06/2019 Inactive metoprolol tartrate 50 mg Tab RxNorm: 916902 1 Tablet(s ) PO BID 1BID (REPLACES TOPROL) - TAKE ONE TABLET BY MOUTH TWICE DAILY (REPLACES TOPROL) 09/11/2010 03/12/2011 Inactive Ativan 1 mg Tab RxNorm: 862647 1 Tablet(s) PO BID PRN for anxiety 1 11/06/2010 Inactive warfarin 2 mg Tab RxNorm: 429757 Tablet(s) PO 2QD - T PHAM TWO TABLETS BY MOUTH EVERY DAY SATURDAY THROUGH SATURDAY AND 1 TABLET ON SATURDAY AND Saturday07/24/2010 10/29/2010 Inactive metoprolol tartrate 50 mg Tab RxNorm: 654101 1 Tablet(s) PO QD 01/201009/11/2010 Inactive pravastatin 40 mg Tab RxNorm: 924212 1 Tablet(s) PO QD 06/06/201004/2011 Inactive Warfarin 2 mg Tab RxNorm: 485700 2 Tablet(s) PO QD 2 tablets by mouth Saturday through Saturday, and one tablet by mouth on Saturday and Saturday. 06/06/2010 07/23/2010 Inactive Ativan 1 mg Tab RxNorm: 776263 1 Tablet(s) PO QHS PRN for anxiety 0 06/06/2010 08/27/2010 Inactive Pravastatin 40 mg Tab RxNorm: 870372 1 Tablet(s) PO QD 04/14/201012/2009 Inactive Ativan 1 mg Tab RxNorm: 903497 1 Tablet(s) PO BID PRN for anxiety 0 02/23/2010 06/02/2010 Inactive Probiotic oral RxNorm: 6205 oral 04/07/2020 Active [place] 3 Natural Fish Oil Conc capsule RxNorm: 1 Capsule(s) PO QD 0 11/27/2017 Active turmeric-turmeric root extract oral RxNorm: 9443298 oral 11/27/19 18 Active magnesium oral RxNorm: 6574 oral 04/07/2020 Active Vitamin D3 5,000 unit tablet RxNorm: 835513 1 Tablet(s) PO QD 019 Active warfarin 2 mg tablet RxNorm: 768484 1 Tablet(s) PO QD 08/13/201207/2012 Inactive Ativan 1 mg Tab RxNorm: 342363 1 Tablet(s) PO BID as needed for anxiety 02/26/2011 02/25/2011 Inactive warfarin 2 mg Tab RxNorm: 785345 2 Tablet(s) PO QD saturday06/06/2012 06/05/2012 Inactive Tricor 145 mg Tab RxNorm: 343957 1 Tablet(s) PO QD 12/06/2011 012 Inactive warfarin 4 mg tablet RxNorm: 383490 Tablet(s) PO 11/27/2017 11/26/2017 Inactive warfarin 2 mg Tab RxNorm: 681102 1 Tablet(s) PO QD on saturday and saturday06/06/2012 06/05/2012 Inactive warfarin 2 mg tablet RxNorm: 005918 1.5 Tablet(s) PO on , , Sat, and Sun and 2 tablets on Sat, Sat, Sat07/13/2019 07/12/2019 Inactive pravastatin 80 mg tablet RxNorm: 480078 1 Tablet(s) PO QD 12/19/2015 12/19/2015 Inactive metoprolol tartrate 50 mg tablet RxNorm: 501731 1 Tablet(s) PO QD 1 09/01/2019 Inactive Warfarin 2 mg Tab RxNorm: 557561 Tablet(s) PO 2 table ts by mouth Saturday through Saturday, and one tablet by mouth on Saturday and Saturday. 06/06/201012/2009 Inactive Namenda 10 mg Tab RxNorm: 863934 2 Tablet(s) PO QD 07/02/2013 013 Inactive warfarin 2 mg tablet RxNorm: 230630 1 1/2 Tablet(s) PO MWF and 2 tablets on Sat and Sun 09/02/2018 09/01/2018 Inactive Ativan 1 mg Tab RxNorm: 553753 1 Tablet(s) PO BID PRN for anxiety 0 04/20/2010 04/19/2010 Inactive warfarin 2 mg Tab RxNorm: 357263 Tablet(s) PO take 2 tablets by mouth Sat-Sat and 1 tablet on Saturday and Saturday06/06/2012 06/05/2012 Inactive Depakote ER 250 mg tablet,extended release RxNorm: 9165502 1 Tab let(s) PO BID 11/27/2017 11/26/2017 Inactive warfarin 1 mg Tab RxNorm: 640215 1 Tablet(s) PO on Saturday and Saturday10/30/2010 [...] Code Result Date S ervice Location PT [id number] PT 24.4 Seconds 07/05/2021 Unknow n PT [id number] INR 2.2 07/05/2021 Unknown PT [id number] PT 25.2 Seconds 04/28/2021 Unknow n PT [id number] INR 2.3 04/28/2021 Unknown THYROID STIMULATING HORMONE 87814 TSH 2.271 uIU/mL 04/28/2021 Unknown COMPREHENSIVE METABOLIC 47848 AST 18 U/L 2020 Unknown COMPREHENSIVE METABOLIC 41150 ALT 9 U/L 2020 Unknown COMPREHENSIVE METABOLIC 36547 BUN 17 mg/dL 2020 Unknown COMPREHENSIVE METABOLIC 55990 ALBUMIN 3.8 g/dL 2020 Unknown COMPREHENSIVE METABOLIC 26304 CHLORIDE 108 mmol/L 04/28 Unknown COMPREHENSIVE METABOLIC 01030 Bili Total 0.7 mg/dL 04/28 Unknown COMPREHENSIVE METABOLIC 78724 ALK PHOS 76 U/L 2020 Unknown COMPREHENSIVE METABOLIC 93853 SODIUM 140 mmol/L 04/28 Unknown COMPREHENSIVE METABOLIC 64527 CREATININE 0.83 mg/dL 04/05 Unknown COMPREHENSIVE METABOLIC 97559 CALCIUM 9.5 mg/dL 2020 Unknown COMPREHENSIVE METABOLIC 25007 POTASSIUM 4.1 mmol/L 04/28 Unknown COMPREHENSIVE METABOLIC 40425 Total Protein 6.9 g/dL Unknown COMPREHENSIVE METABOLIC 29986 Glucose 106 mg/dL 2020 Unknown COMPREHENSIVE METABOLIC 36201 Bicarbonate 26 mmol/L 04/05 Unknown COMPREHENSIVE METABOLIC 00942 AGAP 6 mmol/L 2020 Unknown GFR CALC [id number] GFR Non Afr Amr >60 mL/min 04/28/2021 Un known GFR CALC [id number] GFR Afr Amr >60 mL/min 04/28/2021 Unknow n COMPLETE BLOOD COUNT [id number] WBC 4.6 10e9/L 04/28/20 21 Unknown COMPLETE BLOOD COUNT [id number] RBC 4.39 10e12/L 2020 Unknown COMPLETE BLOOD COUNT 1508423 HEMOGLOBIN 14.2 g/dL 04/28/20 21 Unknown COMPLETE BLOOD COUNT [id number] HEMATOCRIT 41.1 % 04/28/20 21 Unknown COMPLETE BLOOD COUNT [id number] MCV 93.6 fL 1 Unknown COMPLETE BLOOD COUNT [id number] MCH 32.3 pg 1 Unknown COMPLETE BLOOD COUNT 8353059 MCHC 34.5 g/dL 1 Unknown COMPLETE BLOOD COUNT [id number] PLATELET COUNT 198 10e9/L Unknown COMPLETE BLOOD COUNT 3948030 Mean Plt Volume 9.3 fL Unknown COMPLETE BLOOD COUNT 5809809 Neut Auto 54.8 % 1 Unknown COMPLETE BLOOD COUNT 8800838 Lymph Auto 33.7 % 04/28/20 21 Unknown COMPLETE BLOOD COUNT 9271207 [place] Auto 9.6 % 1 Unknown COMPLETE BLOOD COUNT 9086917 RDW 12.2 % 1 Unknown COMPLETE BLOOD COUNT [id number] Eos Auto 1.7 % 1 Unknown COMPLETE BLOOD COUNT 2551266 Baso Auto 0.2 % 1 Unknown COMPLETE BLOOD COUNT 7999116 Neutrophil Abs 2.52 10e9/L Unknown COMPLETE BLOOD COUNT 7860692 Lymphocyte Abs 1.55 10e9/L Unknown COMPLETE BLOOD COUNT [id number] Monocyte Abs 0.44 10e9/L 04/05 Unknown COMPLETE BLOOD COUNT 1882114 Eosinophil Abs 0.08 10e9/L Unknown COMPLETE BLOOD COUNT [id number] RDW-SD 40.9 fL 1 Unknown COMPLETE BLOOD COUNT [id number] Basophil Abs 0.01 10e9/L 04/05 Unknown FREE T4 83543 T4 Free 0.81 ng/dL 04/28/2021 Unknown PT [id number] PT 19.8 Seconds 01/18/2021 Unknow n PT [id number] INR 1.6 01/18/2021 Unknown PT [id number] PT 18.7 Seconds 10/14/2020 Unknow n PT [id number] INR 1.5 10/14/2020 Unknown COMPREHENSIVE METABOLIC 29610 AST 17 U/L 2019 Unknown COMPREHENSIVE METABOLIC 84284 ALT 10 U/L 2019 Unknown COMPREHENSIVE METABOLIC 25560 BUN 19 mg/dL 2019 Unknown COMPREHENSIVE METABOLIC 98347 ALBUMIN 4.1 g/dL 2019 Unknown COMPREHENSIVE METABOLIC 76957 CHLORIDE 103 mmol/L 10/14 Unknown COMPREHENSIVE METABOLIC 28882 Bili Total 0.6 mg/dL 10/14 Unknown COMPREHENSIVE METABOLIC 23783 ALK PHOS 65 U/L 2019 Unknown COMPREHENSIVE METABOLIC 74687 SODIUM 141 mmol/L 10/14 Unknown COMPREHENSIVE METABOLIC 06373 CREATININE 0.77 mg/dL 10/04 Unknown COMPREHENSIVE METABOLIC 02112 CALCIUM 9.2 mg/dL 2019 Unknown COMPREHENSIVE METABOLIC 73528 POTASSIUM 4.2 mmol/L 10/14 Unknown COMPREHENSIVE METABOLIC 85934 Total Protein 6.7 g/dL Unknown COMPREHENSIVE METABOLIC 11415 Glucose 91 mg/dL 2019 Unknown COMPREHENSIVE METABOLIC 74853 Bicarbonate 28 mmol/L 10/04 Unknown COMPREHENSIVE METABOLIC 59212 AGAP 10 mmol/L 2019 Unknown FREE T4 10263 T4 Free 0.81 ng/dL 10/14/2020 Unknown HEMOGLOBIN A1C (GLYCOSYLATED) 0262160 Hgb A1c 89710-5 4.4 % 10/14/2020 Unknown HEMOGLOBIN A1C (GLYCOSYLATED) 0740909 Calc Mean Gluc 80 mg /dL 10/14/2020 Unknown COMPLETE BLOOD COUNT 4579121 WBC 5.4 10e9/L 10/14/20 20 Unknown COMPLETE BLOOD COUNT 8782438 RBC 4.40 10e12/L 2019 Unknown COMPLETE BLOOD COUNT 6239822 HEMOGLOBIN 14.4 g/dL 10/14/20 20 Unknown COMPLETE BLOOD COUNT [id number] HEMATOCRIT 42.4 % 10/14/20 20 Unknown COMPLETE BLOOD COUNT [id number] MCV 96.4 fL 0 Unknown COMPLETE BLOOD COUNT 4952084 MCH 32.7 pg 0 Unknown COMPLETE BLOOD COUNT 6825901 MCHC 34.0 g/dL 0 Unknown COMPLETE BLOOD COUNT 7901081 PLATELET COUNT 216 10e9/L 09/2020 Unknown COMPLETE BLOOD COUNT 7259202 Mean Plt Volume 9.5 fL 09/2020 Unknown COMPLETE BLOOD COUNT 1760327 Neut Auto 57.6 % 0 Unknown COMPLETE BLOOD COUNT [id number] Lymph Auto 31.5 % 10/14/20 20 Unknown COMPLETE BLOOD COUNT 8161543 [place] Auto 9.0 % 0 Unknown COMPLETE BLOOD COUNT 3043158 RDW 12.4 % 0 Unknown COMPLETE BLOOD COUNT 2550008 Eos Auto 1.7 % 0 Unknown COMPLETE BLOOD COUNT 9476696 Baso Auto 0.2 % 0 Unknown COMPLETE BLOOD COUNT 6835473 Neutrophil Abs 3.11 10e9/L Unknown COMPLETE BLOOD COUNT 2050059 Lymphocyte Abs 1.70 10e9/L Unknown COMPLETE BLOOD COUNT 3123764 Monocyte Abs 0.49 10e9/L 10/04 Unknown COMPLETE BLOOD COUNT 3060647 Eosinophil Abs 0.09 10e9/L Unknown COMPLETE BLOOD COUNT [id number] RDW-SD 42.4 fL 0 Unknown COMPLETE BLOOD COUNT [id number] Basophil Abs 0.01 10e9/L 10/04 Unknown THYROID STIMULATING HORMONE 14727 TSH 2.071 uIU/mL 10/14/2020 Unknown LIPID GROUP 71432 Cholesterol 217 mg/dL 10/14/2020 Unkno wn LIPID GROUP 69560 Triglyceride 108 mg/dL 10/14/2020 Unkn own LIPID GROUP 86889 HDL CHOLESTEROL 46 mg/dL 10/14/2020 U nknown LIPID GROUP 65643 Chol/HDL Ratio 4.72 ratio 10/14/2020 U nknown LIPID GROUP 95684 NON-HDL Chol 171 mg/dL 10/14/2020 Unkn own LIPID GROUP 08787 LDL Cholesterol 149 mg/dL 10/14/2020 U nknown GFR CALC 0808831 GFR Non Afr Amr >60 mL/min 10/14/2020 Un known GFR CALC 5500219 GFR Afr Amr >60 mL/min 10/14/2020 Unknow n COMPLETE BLOOD COUNT 9456428 WBC 7.6 10e9/L 04/06/20 20 Unknown COMPLETE BLOOD COUNT [id number] RBC 3.90 10e12/L 2019 Unknown COMPLETE BLOOD COUNT 5134742 HEMOGLOBIN 12.0 g/dL 04/06/20 20 Unknown COMPLETE BLOOD COUNT 7148649 HEMATOCRIT 36.9 % 04/06/20 20 Unknown COMPLETE BLOOD COUNT 5807640 MCV 94.6 fL 0 Unknown COMPLETE BLOOD COUNT 3826218 MCH 30.8 pg 0 Unknown COMPLETE BLOOD COUNT 0169412 MCHC 32.5 g/dL 0 Unknown COMPLETE BLOOD COUNT 4399543 PLATELET COUNT 257 10e9/L 01/2020 Unknown COMPLETE BLOOD COUNT 2134786 Mean Plt Volume 8.6 fL 01/2020 Unknown COMPLETE BLOOD COUNT 6977997 Neut Auto 68.7 % 0 Unknown COMPLETE BLOOD COUNT 5113985 Lymph Auto 22.0 % 04/06/20 20 Unknown COMPLETE BLOOD COUNT 5176621 [place] Auto 8.3 % 0 Unknown COMPLETE BLOOD COUNT 7792941 RDW 12.7 % 0 Unknown COMPLETE BLOOD COUNT 0508250 Eos Auto 0.7 % 0 Unknown COMPLETE BLOOD COUNT 1633848 Baso Auto 0.3 % 0 Unknown COMPLETE BLOOD COUNT 6796308 Neutrophil Abs 5.22 10e9/L Unknown COMPLETE BLOOD COUNT 9747817 Lymphocyte Abs 1.67 10e9/L Unknown COMPLETE BLOOD COUNT 4810158 Monocyte Abs 0.63 10e9/L 01/2020 Unknown COMPLETE BLOOD COUNT 2327242 Eosinophil Abs 0.05 10e9/L Unknown COMPLETE BLOOD COUNT 4016653 RDW-SD 42.6 fL 0 Unknown COMPLETE BLOOD COUNT [id number] Basophil Abs 0.02 10e9/L 01/2020 Unknown PT [id number] PT 19.3 Seconds 04/06/2020 Unknow n PT [id number] INR 1.6 04/06/2020 Unknown COMPREHENSIVE METABOLIC 08359 AST 12 U/L 2019 Unknown COMPREHENSIVE METABOLIC 60033 ALT 7 U/L 2019 Unknown COMPREHENSIVE METABOLIC 30653 BUN 19 mg/dL 2019 Unknown COMPREHENSIVE METABOLIC 03146 ALBUMIN 3.8 g/dL 2019 Unknown COMPREHENSIVE METABOLIC 47128 CHLORIDE 103 mmol/L 04/06 Unknown COMPREHENSIVE METABOLIC 22609 Bili Total 0.4 mg/dL 04/06 Unknown COMPREHENSIVE METABOLIC 95581 ALK PHOS 78 U/L 2019 Unknown COMPREHENSIVE METABOLIC 04759 SODIUM 141 mmol/L 04/06 Unknown COMPREHENSIVE METABOLIC 23436 CREATININE 0.90 mg/dL 01/2020 Unknown COMPREHENSIVE METABOLIC 37042 CALCIUM 9.0 mg/dL 2019 Unknown COMPREHENSIVE METABOLIC 22120 POTASSIUM 3.8 mmol/L 04/06 Unknown COMPREHENSIVE METABOLIC 71546 Total Protein 6.1 g/dL Unknown COMPREHENSIVE METABOLIC 48293 Glucose 125 mg/dL 2019 Unknown COMPREHENSIVE METABOLIC 92703 Bicarbonate 27 mmol/L 01/2020 Unknown COMPREHENSIVE METABOLIC 17052 AGAP 11 mmol/L 2019 Unknown GFR CALC 9710820 GFR Non Afr Amr >60 mL/min 04/06/2020 Un known GFR CALC 5571375 GFR Afr Amr >60 mL/min 04/06/2020 Unknow n PT [id number] PT 25.2 Seconds 09/02/2019 Unknow n PT [id number] INR 2.2 09/02/2019 Unknown PT [id number] PT 26.5 Seconds 04/22/2019 Unknow n PT 6287008 INR 2.3 04/22/2019 Unknown FERRITIN 93889 FERRITIN 240.3 ng/mL 04/22/2019 Unknown COMPLETE BLOOD COUNT 6273160 WBC 7.7 10e9/L 04/22/20 19 Unknown COMPLETE BLOOD COUNT 2205227 RBC 4.19 10e12/L 2018 Unknown COMPLETE BLOOD COUNT 1151270 HEMOGLOBIN 13.5 g/dL 04/22/20 19 Unknown COMPLETE BLOOD COUNT [id number] HEMATOCRIT 39.6 % 04/22/20 19 Unknown COMPLETE BLOOD COUNT [id number] MCV 94.5 fL 9 Unknown COMPLETE BLOOD COUNT [id number] MCH 32.2 pg 9 Unknown COMPLETE BLOOD COUNT [id number] MCHC 34.1 g/dL 9 Unknown COMPLETE BLOOD COUNT [id number] PLATELET COUNT 235 10e9/L Unknown COMPLETE BLOOD COUNT [id number] Mean Plt Volume 9.8 fL Unknown COMPLETE BLOOD COUNT [id number] Neut Auto 68.5 % 9 Unknown COMPLETE BLOOD COUNT [id number] Lymph Auto 22.4 % 04/22/20 19 Unknown COMPLETE BLOOD COUNT 8179697 [place] Auto 8.3 % 9 Unknown COMPLETE BLOOD COUNT 1472526 RDW 12.4 % 9 Unknown COMPLETE BLOOD COUNT [id number] Eos Auto 0.5 % 9 Unknown COMPLETE BLOOD COUNT [id number] Baso Auto 0.3 % 9 Unknown COMPLETE BLOOD COUNT [id number] Neutrophil Abs 5.27 10e9/L Unknown COMPLETE BLOOD COUNT [id number] Lymphocyte Abs 1.72 10e9/L Unknown COMPLETE BLOOD COUNT [id number] Monocyte Abs 0.64 10e9/L 04/04 Unknown COMPLETE BLOOD COUNT [id number] Eosinophil Abs 0.04 10e9/L Unknown COMPLETE BLOOD COUNT [id number] RDW-SD 41.6 fL 9 Unknown COMPLETE BLOOD COUNT [id number] Basophil Abs 0.02 10e9/L 04/04 Unknown IRON 89170 Iron 95 ug/dL 04/22/2019 Unknown GFR CALC [id number] GFR Non Afr Amr >60 mL/min 01/05/2019 Un known GFR CALC [id number] GFR Afr Amr >60 mL/min 01/05/2019 Unknow n COMPREHENSIVE METABOLIC 30112 AST 15 U/L 2018 Unknown COMPREHENSIVE METABOLIC 42632 ALT 11 U/L 2018 Unknown COMPREHENSIVE METABOLIC 56328 BUN 16 mg/dL 2018 Unknown COMPREHENSIVE METABOLIC 03457 ALBUMIN 3.9 g/dL 2018 Unknown COMPREHENSIVE METABOLIC 68302 CHLORIDE 106 mmol/L 01/05 Unknown COMPREHENSIVE METABOLIC 02476 Bili Total 0.7 mg/dL 01/05 Unknown COMPREHENSIVE METABOLIC 16704 ALK PHOS 50 U/L 2018 Unknown COMPREHENSIVE METABOLIC 93584 SODIUM 138 mmol/L 01/05 Unknown COMPREHENSIVE METABOLIC 15178 CREATININE 0.74 mg/dL 02/2019 Unknown COMPREHENSIVE METABOLIC 71347 CALCIUM 9.0 mg/dL 2018 Unknown COMPREHENSIVE METABOLIC 14126 POTASSIUM 4.3 mmol/L 01/05 Unknown COMPREHENSIVE METABOLIC 89415 Total Protein 6.4 g/dL Unknown COMPREHENSIVE METABOLIC 26145 Glucose 114 mg/dL 2018 Unknown COMPREHENSIVE METABOLIC 74552 Bicarbonate 26 mmol/L 02/2019 Unknown COMPREHENSIVE METABOLIC 38068 AGAP 6 mmol/L 2018 Unknown COMPLETE BLOOD COUNT [id number] WBC 5.5 10e9/L 01/06/20 19 Unknown COMPLETE BLOOD COUNT [id number] RBC 4.27 10e12/L 2018 Unknown COMPLETE BLOOD COUNT [id number] HEMOGLOBIN 14.0 g/dL 01/06/20 19 Unknown COMPLETE BLOOD COUNT [id number] HEMATOCRIT 40.6 % 01/06/20 19 Unknown COMPLETE BLOOD COUNT [id number] MCV 95.1 fL 9 Unknown COMPLETE BLOOD COUNT [id number] MCH 32.8 pg 9 Unknown COMPLETE BLOOD COUNT [id number] MCHC 34.5 g/dL 9 Unknown COMPLETE BLOOD COUNT [id number] PLATELET COUNT 211 10e9/L 02/2019 Unknown COMPLETE BLOOD COUNT [id number] Mean Plt Volume 9.8 fL 02/2019 Unknown COMPLETE BLOOD COUNT [id number] Neut Auto 64.7 % 9 Unknown COMPLETE BLOOD COUNT [id number] Lymph Auto 24.3 % 01/06/20 19 Unknown COMPLETE BLOOD COUNT 1969251 [place] Auto 9.7 % 9 Unknown COMPLETE BLOOD COUNT 2245404 RDW 12.2 % 9 Unknown COMPLETE BLOOD COUNT 2686019 Eos Auto 1.1 % 9 Unknown COMPLETE BLOOD COUNT [id number] Baso Auto 0.2 % 9 Unknown COMPLETE BLOOD COUNT [id number] Neutrophil Abs 3.56 10e9/L Unknown COMPLETE BLOOD COUNT [id number] Lymphocyte Abs 1.34 10e9/L Unknown COMPLETE BLOOD COUNT [id number] Monocyte Abs 0.53 10e9/L 02/2019 Unknown COMPLETE BLOOD COUNT [id number] Eosinophil Abs 0.06 10e9/L Unknown COMPLETE BLOOD COUNT [id number] RDW-SD 41.3 fL 9 Unknown COMPLETE BLOOD COUNT [id number] Basophil Abs 0.01 10e9/L 02/2019 Unknown LIP[facility] GROUP 61020 Cholesterol 145 mg/dL 01/05/2019 Unkno wn LIPID GROUP 76008 Triglyceride 153 mg/dL 01/05/2019 Unkn own LIP[facility] GROUP 64476 HDL CHOLESTEROL 39 mg/dL 01/05/2019 U nknown L[facility] GROUP 63140 Chol/HDL Ratio 3.72 ratio 01/05/2019 U nknown [facility] 39149 NON-HDL Chol 106 mg/dL 01/05/2019 Unkn own [facility] GROUP 06948 LDL Cholesterol 75 mg/dL 01/05/2019 U nknown PT [id number] PT 30.5 Seconds 12/15/2018 Unknow n PT [id number] INR 2.9 12/15/2018 Unknown PT 1885304 PT 17.2 Seconds 09/08/2018 Unknow n PT [id number] INR 1.4 09/08/2018 Unknown L[facility] GROUP 27486 Cholesterol 190 mg/dL 07/08/2018 Unkno wn L[facility] GROUP 68121 Triglyceride 402 mg/dL 07/08/2018 Unkn own [facility] GROUP 72438 HDL CHOLESTEROL 36 mg/dL 07/08/2018 U nknown [facility] 62539 Chol/HDL Ratio 5.28 ratio 07/08/2018 U nknown [facility] 17941 NON-HDL Chol 154 mg/dL 07/08/2018 Unkn own [facility] 67468 LDL Cholesterol N/A Trig >400 018 Unknown GFR CALC 5281041 GFR Non Afr Amr >60 mL/min 07/08/2018 Un known GFR CALC 0250390 GFR Afr Amr >60 mL/min 07/08/2018 Unknow n COMPLETE BLOOD COUNT [id number] WBC 5.0 10e9/L 07/08/20 18 Unknown COMPLETE BLOOD COUNT [id number] RBC 4.08 10e12/L 2017 Unknown COMPLETE BLOOD COUNT [id number] HEMOGLOBIN 13.3 g/dL 07/08/20 18 Unknown COMPLETE BLOOD COUNT [id number] HEMATOCRIT 38.6 % 07/08/20 18 Unknown COMPLETE BLOOD COUNT [id number] MCV 94.6 fL 8 Unknown COMPLETE BLOOD COUNT 6288248 MCH 32.6 pg 8 Unknown COMPLETE BLOOD COUNT 2526984 MCHC 34.5 g/dL 8 Unknown COMPLETE BLOOD COUNT [id number] PLATELET COUNT 205 10e9/L 02/2018 Unknown COMPLETE BLOOD COUNT 8580178 Mean Plt Volume 9.8 fL 02/2018 Unknown COMPLETE BLOOD COUNT 1363405 Neut Auto 52.8 % 8 Unknown COMPLETE BLOOD COUNT 1982922 Lymph Auto 33.2 % 07/08/20 18 Unknown COMPLETE BLOOD COUNT 6853672 [place] Auto 11.6 % 8 Unknown COMPLETE BLOOD COUNT 1974230 RDW 12.5 % 8 Unknown COMPLETE BLOOD COUNT 1926659 Eos Auto 2.0 % 8 Unknown COMPLETE BLOOD COUNT 7759922 Baso Auto 0.4 % 8 Unknown COMPLETE BLOOD COUNT [id number] Neutrophil Abs 2.64 10e9/L Unknown COMPLETE BLOOD COUNT [id number] Lymphocyte Abs 1.66 10e9/L Unknown COMPLETE BLOOD COUNT [id number] Monocyte Abs 0.58 10e9/L 02/2018 Unknown COMPLETE BLOOD COUNT [id number] Eosinophil Abs 0.10 10e9/L Unknown COMPLETE BLOOD COUNT [id number] RDW-SD 41.8 fL 8 Unknown COMPLETE BLOOD COUNT [id number] Basophil Abs 0.02 10e9/L 02/2018 Unknown PT [id number] PT 32.9 Seconds 07/08/2018 Unknow n PT [id number] INR 3.2 07/08/2018 Unknown PT [id number] PT TNP:Duplicate Order 8 Unknown PT [id number] INR TNP:Duplicate Order 8 Unknown COMPREHENSIVE METABOLIC 20539 AST TNP:Duplicate Or grace 07/08/2018 Unknown COMPREHENSIVE METABOLIC 36765 ALT TNP:Duplicate Or grace 07/08/2018 Unknown COMPREHENSIVE METABOLIC 93343 BUN TNP:Duplicate Or grace 07/08/2018 Unknown COMPREHENSIVE METABOLIC 45600 ALBUMIN TNP:Duplicate Or grace 07/08/2018 Unknown COMPREHENSIVE METABOLIC 98188 CHLORIDE TNP:Duplicate Or grace 07/08/2018 Unknown COMPREHENSIVE METABOLIC 32481 Bili Total TNP:Duplicate O rder 07/08/2018 Unknown COMPREHENSIVE METABOLIC 84222 ALK PHOS TNP:Duplicate Or grace 07/08/2018 Unknown COMPREHENSIVE METABOLIC 82060 SODIUM TNP:Duplicate Or grace 07/08/2018 Unknown COMPREHENSIVE METABOLIC 58896 CREATININE TNP:Duplicate O rder 07/08/2018 Unknown COMPREHENSIVE METABOLIC 03595 CALCIUM TNP:Duplicate Or grace 07/08/2018 Unknown COMPREHENSIVE METABOLIC 26877 POTASSIUM TNP:Duplicate Or grace 07/08/2018 Unknown COMPREHENSIVE METABOLIC 26472 Total Protein TNP:Duplicat e Order 07/08/2018 Unknown COMPREHENSIVE METABOLIC 46528 Glucose TNP:Duplicate Or grace 07/08/2018 Unknown COMPREHENSIVE METABOLIC 39276 Bicarbonate TNP:Duplicate Order 07/08/2018 Unknown COMPREHENSIVE METABOLIC 04329 AGAP TNP:Duplicate Or grace 07/08/2018 Unknown COMPREHENSIVE METABOLIC 43517 AST 17 U/L 2017 Unknown COMPREHENSIVE METABOLIC 25623 ALT 12 U/L 2017 Unknown COMPREHENSIVE METABOLIC 88124 BUN 20 mg/dL 2017 Unknown COMPREHENSIVE METABOLIC 63223 ALBUMIN 4.0 g/dL 2017 Unknown COMPREHENSIVE METABOLIC 91913 CHLORIDE 107 mmol/L 07/08 Unknown COMPREHENSIVE METABOLIC 68981 Bili Total 0.3 mg/dL 07/08 Unknown COMPREHENSIVE METABOLIC 09094 ALK PHOS 58 U/L 2017 Unknown COMPREHENSIVE METABOLIC 99172 SODIUM 139 mmol/L 07/08 Unknown COMPREHENSIVE METABOLIC 97293 CREATININE 0.72 mg/dL 02/2018 Unknown COMPREHENSIVE METABOLIC 62399 CALCIUM 7.8 mg/dL 2017 Unknown COMPREHENSIVE METABOLIC 88025 POTASSIUM 4.1 mmol/L 07/08 Unknown COMPREHENSIVE METABOLIC 28716 Total Protein 6.2 g/dL Unknown COMPREHENSIVE METABOLIC 05222 Glucose 107 mg/dL 2017 Unknown COMPREHENSIVE METABOLIC 76255 Bicarbonate 22 mmol/L 02/2018 Unknown COMPREHENSIVE METABOLIC 52824 AGAP 10 mmol/L 2017 Unknown GFR CALC 0717280 GFR Non Afr Amr >60 mL/min 11/28/2017 Un known GFR CALC 4550230 GFR Afr Amr >60 mL/min 11/28/2017 Unknow n THYROID STIMULATING HORMONE 63621 TSH 4.029 uIU/mL 11/28/2017 Unknown LIPID GROUP 52425 Cholesterol 181 mg/dL 11/28/2017 Unkno wn LIPID GROUP 25591 Triglyceride 193 mg/dL 11/28/2017 Unkn own LIPID GROUP 17633 HDL CHOLESTEROL 36 11/28/2017 U nknown LIPID GROUP 47746 Chol/HDL Ratio 5.03 ratio 11/28/2017 U nknown LIPID GROUP 58503 NON-HDL Chol 145 mg/dL 11/28/2017 Unkn own LIPID GROUP 71519 LDL Cholesterol 106 mg/dL 11/28/2017 U nknown PT 2502300 PT 22.2 Seconds 11/28/2017 Unknow n PT [id number] INR 2.0 11/28/2017 Unknown COMPREHENSIVE METABOLIC 40225 AST 19 U/L 2017 Unknown COMPREHENSIVE METABOLIC 14122 ALT 16 U/L 2017 Unknown COMPREHENSIVE METABOLIC 76123 BUN 22 mg/dL 2017 Unknown COMPREHENSIVE METABOLIC 97178 ALBUMIN 4.1 g/dL 2017 Unknown COMPREHENSIVE METABOLIC 48699 CHLORIDE 108 mmol/L 11/28 Unknown COMPREHENSIVE METABOLIC 38823 Bili Total 0.5 mg/dL 11/28 Unknown COMPREHENSIVE METABOLIC 74819 ALK PHOS 53 U/L 2017 Unknown COMPREHENSIVE METABOLIC 22343 SODIUM 141 mmol/L 11/28 Unknown COMPREHENSIVE METABOLIC 63276 CREATININE 0.83 mg/dL 11/05 Unknown COMPREHENSIVE METABOLIC 30809 CALCIUM 9.1 mg/dL 2017 Unknown COMPREHENSIVE METABOLIC 80664 POTASSIUM 4.6 mmol/L 11/28 Unknown COMPREHENSIVE METABOLIC 46820 Total Protein 6.5 g/dL Unknown COMPREHENSIVE METABOLIC 09399 Glucose 106 mg/dL 2017 Unknown COMPREHENSIVE METABOLIC 56326 Bicarbonate 26 mmol/L 11/05 Unknown COMPREHENSIVE METABOLIC 93575 AGAP 7 mmol/L 2017 Unknown COMPLETE BLOOD COUNT 6759945 WBC 5.1 10e9/L 11/28/19 18 Unknown COMPLETE BLOOD COUNT 5036550 RBC 4.22 10e12/L 2017 Unknown COMPLETE BLOOD COUNT 1128501 HEMOGLOBIN 13.5 g/dL 11/28/19 18 Unknown COMPLETE BLOOD COUNT 9185429 HEMATOCRIT 39.1 % 11/28/19 18 Unknown COMPLETE BLOOD COUNT 5417981 MCV 92.7 fL 8 Unknown COMPLETE BLOOD COUNT 7759997 MCH 32.0 pg 8 Unknown COMPLETE BLOOD COUNT 6708731 MCHC 34.5 g/dL 8 Unknown COMPLETE BLOOD COUNT 5151153 PLATELET COUNT 226 10e9/L Unknown COMPLETE BLOOD COUNT 1976662 Mean Plt Volume 9.6 fL Unknown COMPLETE BLOOD COUNT 6640587 Neut Auto 49.5 % 8 Unknown COMPLETE BLOOD COUNT 3782326 Lymph Auto 35.3 % 11/28/19 18 Unknown COMPLETE BLOOD COUNT 1104029 [place] Auto 12.4 % 8 Unknown COMPLETE BLOOD COUNT 7292639 RDW 12.4 % 8 Unknown COMPLETE BLOOD COUNT 0442488 Eos Auto 2.2 % 8 Unknown COMPLETE BLOOD COUNT 7178250 Baso Auto 0.6 % 8 Unknown COMPLETE BLOOD COUNT 9217587 Neutrophil Abs 2.52 10e9/L Unknown COMPLETE BLOOD COUNT 2225763 Lymphocyte Abs 1.80 10e9/L Unknown COMPLETE BLOOD COUNT 0506641 Monocyte Abs 0.63 10e9/L 11/05 Unknown COMPLETE BLOOD COUNT 0785917 Eosinophil Abs 0.11 10e9/L Unknown COMPLETE BLOOD COUNT 3560535 RDW-SD 41.2 fL 8 Unknown COMPLETE BLOOD COUNT 2229236 Basophil Abs 0.03 10e9/L 11/05 Unknown Procedures Procedure Codes Date SARSCOV & INF VIR A&B AG IA CPT-4: 48449 10/04/2021 FLU VACC PRSV FREE INC ANTIG 65 AND OLDER CPT-4: 93086 08/18/2021 FLU VACC PRSV FREE INC ANTIG 65 AND OLDER CPT-4: 01406 08/18/2021 ADMIN INFLUENZA VIRUS VAC CPT-4: G0008 08/18/2021 ROUTINE VENIPUNCTURE CPT-4: 62366 07/05/2021 PROTHROMBIN TIME CPT-4: 29741 07/05/2021 PPPS, subseq visit CPT-4: G0439 10/12/2020 ROUTINE VENIPUNCTURE CPT-4: 65814 04/06/2020 COMPREHEN METABOLIC PANEL CPT-4: 48710 04/06/2020 COMPLETE CBC W/AUTO DIFF WBC CPT-4: 13207 04/06/2020 PROTHROMBIN TIME CPT-4: 90236 04/06/2020 PPPS, subseq visit CPT-4: G0439 09/02/2019 ROUTINE VENIPUNCTURE CPT-4: 22058 09/02/2019 PROTHROMBIN TIME CPT-4: 98267 09/02/2019 FLU VACC PRSV FREE INC ANTIG 65 AND OLDER CPT-4: 44874 08/20/2018 PNEUMOCOCCAL VACC 23 BRIDGET IM CPT-4: 66766 08/20/2018 ADMIN INFLUENZA VIRUS VAC CPT-4: G0008 08/20/2018 ADMIN PNEUMOCOCCAL VACCINE CPT-4: G0009 08/20/2018 PPPS, subseq visit CPT-4: G0439 11/27/2017 FLU VACC PRSV FREE INC ANTIG 65 AND OLDER CPT-4: 28653 08/14/2017 PNEUMOCOCCAL VACC 13 BRIDGET IM CPT-4: 38303 08/14/2017 ADMIN INFLUENZA VIRUS VAC CPT-4: G0008 08/14/2017 ADMIN PNEUMOCOCCAL VACCINE CPT-4: G0009 08/14/2017 FLU VACC PRSV FREE INC ANTIG 65 AND OLDER CPT-4: 71021 10/03/2016 ADMIN INFLUENZA VIRUS VAC CPT-4: G0008 10/03/2016 PPPS, subseq visit CPT-4: G0439 10/10/2015 FLUZONE, 5ML (Medicare) CPT-4: Q2038 09/01/2014 ADMIN INFLUENZA VIRUS VAC CPT-4: G0008 09/01/2014 Vital Signs Date Vital 07/05/2021 Blood Pressure 1: 122/80 Code: 8480-6 Heart Rate 1: 92 bpm Respiratory Rate: 20 bpm SpO2: 96% Temperature: 36.8 (C) / 98.2 (F) We ight: 207 lbs Code: 94437-9 04/26/2021 Blood Pressure 1: 126/82 Code: 8480-6 Heart Rate 1: 104 bpm Respiratory Rate: 20 bpm SpO2: 96% Temperature: 36.7 (C) / 98.1 (F) We ight: 212 lbs Code: 64851-4 10/12/2020 Blood Pressure 1: 104/68 Code: 8480-6 BMI: 31.6 Code: 87745-3 Heart Rate 1: 96 bpm Height: 5'7" Code: 8302-2 Respiratory Rate: 20 bpm SpO2: 95% Temperature: 36.9 (C) / 98.5 (F) Weight: 202 lbs Code: 85393-3 07/13/2020 Blood Pressure 1: 128/72 Code: 8480-6 Heart Rate 1: 76 bpm Respiratory Rate: 18 bpm SpO2: 97% Temperature: 36.3 (C) / 97.3 (F) We ight: 190 lbs Code: 94972-6 04/06/2020 Blood Pressure 1: 106/68 Code: 8480-6 BMI: 29.1 Code: 63505-4 Heart Rate 1: 96 bpm Height: 5'7" Code: 8302-2 Respiratory Rate: 20 bpm SpO2: 96% Temperature: 36.8 (C) / 98.2 (F) Weight: 186 lbs Code: 10468-5 09/02/2019 Blood Pressure 1: 94/50 Code: 8480-6 BMI: 29.8 C ode: 97429-1 Heart Rate 1: 68 bpm Height: 5'7" Code: 8302-2 Respiratory Rate: 20 bpm SpO2: 96% Temperature: 36.6 (C) / 97.9 (F) Weight: 190 lbs Code: 02467-8 07/01/2019 Blood Pressure 1: 112/60 Code: 8480-6 Heart Rate 1: 88 bpm Respiratory Rate: 20 bpm SpO2: 94% Temperature: 36.8 (C) / 98.2 (F) We ight: 201 lbs Code: 39698-6 05/27/2019 Blood Pressure 1: 104/50 Code: 8480-6 Heart Rate 1: 62 bpm SpO2: 95% Temperature: 36.3 (C) / 97.4 (F) Weight: 204 lbs Code: 87874-5 04/22/2019 Blood Pressure 1: 112/72 Code: 8480-6 Heart Rate 1: 64 bpm Respiratory Rate: 20 bpm SpO2: 95% Temperature: 36.8 (C) / 98.2 (F) We ight: 207 lbs Code: 93820-2 02/09/2019 Blood Pressure 1: 104/60 Code: 8480-6 Heart Rate 1: 72 bpm Respiratory Rate: 20 bpm SpO2: 95% Temperature: 37.1 (C) / 98.8 (F) We ight: 216 lbs Code: 44948-8 01/07/2019 Blood Pressure 1: 122/74 Code: 8480-6 Heart Rate 1: 96 bpm Respiratory Rate: 20 bpm SpO2: 96% Temperature: 36.7 (C) / 98.1 (F) We ight: 219 lbs Code: 61791-1 07/09/2018 Blood Pressure 1: 118/65 Code: 8480-6 Heart Rate 1: 62 bpm SpO2: 94% Temperature: 36.2 (C) / 97.1 (F) Weight: 237 lbs Code: 45045-3 11/27/2017 Blood Pressure 1: 124/70 Code: 8480-6 BMI: 35.2 Code: 96022-9 Heart Rate 1: 64 bpm Height: 5'8" Code: 8302-2 Respiratory Rate: 20 bpm SpO2: 94% Temperature: 36.9 (C) / 98.5 (F) Weight: 235 lbs Code: 00763-0 10/10/2015 Blood Pressure 1: 126/78 Code: 8480-6 BMI: 36.0 Code: 51637-5 Heart Rate 1: 72 bpm Height: 5'8" Code: 8302-2 Respiratory Rate: 20 bpm Temperatu re: 36.9 (C) / 98.4 (F) Weight: 240 lbs Code: 77622-4 09/01/2014 Blood Pressure 1: 114/70 Code: 8480-6 BMI: 35.4 Code: 48111-0 Heart Rate 1: 76 bpm Height: 5'8" Code: 8302-2 Respiratory Rate: 20 bpm Temperatu re: 36.7 (C) / 98.1 (F) Weight: 236 lbs Code: 36875-4 07/02/2013 Blood Pressure 1: 124/90 Code: 8480-6 BMI: 33.7 Code: 86335-3 Heart Rate 1: 76 bpm Height: 5'8" Code: 8302-2 Respiratory Rate: 20 bpm Temperatu re: 36.6 (C) / 97.8 (F) Weight: 225 lbs Code: 05281-6 06/25/2012 Blood Pressure 1: 144/100 Code: 8480-6 BMI: 34.5 Code: 98003-5 Heart Rate 1: 76 bpm Height: 5'8" Code: 8302-2 Respiratory Rate: 20 bpm Temperatu re: 36.6 (C) / 97.9 (F) Weight: 230 lbs Code: 03699-3 05/15/2012 Blood Pressure 1: 112/70 Code: 8480-6 BMI: 34.6 Code: 53944-8 Heart Rate 1: 76 bpm Height: 5'8" Code: 8302-2 Respiratory Rate: 20 bpm Temperatu re: 37.0 (C) / 98.6 (F) Weight: 231 lbs Code: 72741-3 12/06/2011 Blood Pressure 1: 142/90 Code: 8480-6 BMI: 35.4 Code: 70351-8 Heart Rate 1: 72 bpm Height: 5'8" Code: 8302-2 Respiratory Rate: 20 bpm Temperatu re: 36.9 (C) / 98.4 (F) Weight: 236 lbs Code: 63106-0 10/30/2010 Blood Pressure 1: 114/78 Code: 8480-6 Heart Rate 1: 76 bpm Temperature: 36.3 (C) / 97.4 (F) Weight: 228 lbs Code: 50264-1 Functional Status No Functional Status data Reason [...] Diagnosis: Exposure to COVID-19 virus[ICD10: Z20.822] Arlyn LOPEZ [employer] CPT-4: 74469 10/04/2021 ([id number]) NURSE/OUTPATIENT VISIT EST Diagnosis: FLU VACCINE[ICD10: Z23] Arlyn MOSQUERA DO [facility] CPT-4: 51557 08/18/2021 ([id number]) OFFICE/OUTPATIENT VISIT EST Diagnosis: Parkinson disease[ICD10: G20] Diagnosis: assisted (current) use of anticoagulants[ICD10: Z79.01] Arlyn LOPEZ DO [facility] CPT-4: 47349 07/05/2021 ([id number]) OFFICE/OUTPATIENT VISIT EST Diagnosis: Parkinson disease[ICD10: G20] Diagnosis: Dementia[ICD10: F03.90] Arlyn MOSQUERA [facility] CPT-4: 17279 04/26/2021 ([id number]) OFFICE/OUTPATIENT VISIT EST Diagnosis: 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] Diagnosis: 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: G30.9] Arlyn LOPEZ [facility] CPT-4: 97110 07/13/2020 ([id number]) OFFICE/OUTPATIENT VISIT EST Diagnosis: Alzheimer's disease, unspecified[ICD10: G30.9] Arlyn LOPEZ DO [facility] CPT-4: 29267 04/06/2020 ([id number]) OFFICE/OUTPATIENT VISIT EST Diagnosis: Alzheimer's disease with late onset[ICD10: G30.1] Diagnosis: Generalized anxiety disorder[ICD10: F41.1] Diagnosis: Unspecified dementia with behavioral disturbance[ICD10: F03.91] Arlyn LOPEZ [facility] CPT-4: 74916 07/01/2019 ([id number]) OFFICE/OUTPATIENT VISIT EST Diagnosis: Alzheimer's disease with late onset[ICD10: G30.1] Diagnosis: Abnormal weight loss[ICD10: R63.4] Diagnosis: Essential (primary) hypertension[ICD10: I10] Diagnosis: Melena[ICD10: K92.1] Diagnosis: Unspecified dementia with behavioral disturbance[ICD10: F03.91] Diagnosis: Spontaneous ecchymoses[ICD10: R23.3] Arlyn LOPEZ [facility] CPT-4: 09667 05/27/2019 ([id number]) OFFICE/OUTPATIENT VISIT EST Diagnosis: 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] Diagnosis: Alzheimer's disease with late onset[ICD10: G30.1] Diagnosis: Melena[ICD10: K92.1] Diagnosis: Abnormal weight loss[ICD10: R63.4] Arlyn John BELAGINGER RUBI Krish LOPEZ [employer] CPT-4: 51009 04/22/2019 ([id number]) OFFICE/OUTPATIENT VISIT EST Diagnosis: 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] Diagnosis: Slow transit constipation[ICD10: K59.01] Diagnosis: Unspecified dementia with behavioral disturbance[ICD10: F03.91] Arlyn Corraljerryestella FERMINARLYN RmDiane JOHN [employer] CPT-4: 48806 02/09/2019 ([id number]) OFFICE/OUTPATIENT VISIT EST Diagnosis: Alzheimer's disease with late onset[ICD10: G30.1] Diagnosis: 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] Diagnosis: Nocturia[ICD10: R35.1] Diagnosis: Constipation, unspecified[ICD10: K59.00] Arlyn Corraljerryestella FERMINRALYN RmDiane JOHN [employer] CPT-4: 20477 01/07/2019 ([id number]) NURSE/OUTPATIENT VISIT EST Diagnosis: FLU VACCINE[ICD10: Z23] Diagnosis: PNEUMOCOCCAL VACCINE[ICD10: Z23] Arlyn FERMINLINE RmDiane JOHN ALVAREZ [facility] CPT-4: 01613 08/20/2018 ([id number]) OFFICE/OUTPATIENT VISIT EST Diagnosis: Mixed hyperlipidemia[ICD10: E78.2] Diagnosis: Essential (primary) hypertension[ICD10: I10] Diagnosis: Alzheimer's disease, unspecified[ICD10: G30.9] Arlyn FERMINLINE Krish LOPEZ [employer] [facility] CPT-4: 66779 07/09/2018 ([id number]) OFFICE/OUTPATIENT VISIT EST Diagnosis: PNEUMOCOCCAL VACCINE[ICD10: Z23] Diagnosis: FLU VACCINE[ICD10: Z23] Arlyn Ellisjerryestella ARLYN RmDiane BRAYDON MOSQUERA [employer] CPT-4: 20309 08/14/2017 ([id number]) OFFICE/OUTPATIENT VISIT EST Diagnosis: FLU VACCINE[ICD10: Z23] Arlyncholo FAUSTIN Krish [facility] CPT-4: 25814 10/03/2016 ([id number]) OFFICE/OUTPATIENT VISIT EST Diagnosis: HYPERTENSION[ICD9: 401.9] Diagnosis: HYPERLIPIDEMIA NEC/NOS[ICD9: 272.4] Diagnosis: MEMORY LOSS[ICD9: 780.93] Diagnosis: - I - ANXIETY STATE NOS[ICD9: 300.00] Diagnosis: FLU VACCINE[ICD10: Z23] Arlyn FAUSTIN Krish [facility] CPT-4: 63420 09/01/2014 OFFICE/OUTPATIENT VISIT EST Diagnosis: HYPERTENSION[ICD9: 401.9] Diagnosis: CAD[ICD9: 414.00] Diagnosis: HYPERLIPIDEMIA NEC/NOS[ICD9: 272.4] Diagnosis: MEMORY LOSS[ICD9: 780.93] Diagnosis: ANXIETY STATE NOS[ICD9: 300.00] Diagnosis: Testicular pain[ICD9: 608.9] Arlyn FAUSTIN RmDiane JOHN [facility] CPT-4: 07957 07/02/2013 ([id number]) OFFICE/OUTPATIENT VISIT EST Diagnosis: MEMORY LOSS[ICD9: 780.93] Arlyn FAUSTIN RmDiane ELLIS ALANIZR [facility] CPT-4: 14344 06/25/2012 ([id number]) OFFICE/OUTPATIENT VISIT EST Diagnosis: HYPERLIPIDEMIA NEC/NOS[ICD9: 272.4] Diagnosis: HYPERTENSION[ICD9: 401.9] Diagnosis: CAD[ICD9: 414.00] Diagnosis: MEMORY LOSS[ICD9: 780.93] Arlyn FAUSTIN RmDiane ELLIS NDER [facility] CPT-4: 14595 05/15/2012 PER PM REEVAL EST PAT 65+ YR Diagnosis: ROUTINE MEDICAL EXAM[ICD9: V70.0] Diagnosis: HYPERLIPIDEMIA NEC/NOS[ICD9: 272.4] Diagnosis: HYPERTENSION[ICD9: 401.9] Diagnosis: CAD[ICD9: 414.00] Diagnosis: Seborrheic dermatitis[ICD9: 690.10] Arlyn PERRY RmDiane JOHN [employer] [facility] CPT-4: 48801 12/06/2011 ([id number]) OFFICE/OUTPATIENT VISIT, EST Arlyn GENTILE RmDiane JOHN [facility] CPT-4: 67309 10/30/2010 Plan of Care Planned Activity Notes Codes Status Date Appointment: Arlyn Lopez WPtel: [address] [place], [place] [phone] [place] LAB 10/04/2021 Appointment: Arlyn Lopez WPtel: [address] [place], [place] [phone] [place] Immunizations 08/18/2021 Visit Diagnosis Plan: Parkinson disease Discussion: In crease sinemet 25/100mg 2po BID Call in 1month ICD-9 : 332.0 ICD-10 : G20 07/05/2021 Visit Diagnosis Plan: assisted (current) use of antic oagulants Discussion: PT/INR drawn ICD-9 : V58.61 ICD-10 : Z79.01 07/05/2021 Appointment: Arlyn Lopez WPtel: [address] [place], [place] [phone] [place] FOLLOW UP 07/05/2021 Visit Diagnosis Plan: Parkinson disease Discussion: Tr ial of sinemet 25/100mg po BID Fwup 2mos ICD-9 : 332.0 ICD-10 : G20 04/26/2021 Appointment: Arlyn Lopez WPtel: [address] [place], [place] [phone] US FOLLOW UP 04/26/2021 Appointment: Arlyn Lopez WPtel: [address] [place], [place] [phone] [place] CANCELED 01/11/2021 Visit Diagnosis Plan: Encounter for [facility] adult medical examination without abnormal [...] : Z79.01 10/12/2020 Appointment: Arlyn Lopez WPtel: [address] [place], [place] [phone] [place] Annual Well Visit 10/12/2020 Visit Diagnosis [...] : F02.81 07/13/2020 Appointment: Arlyn Lopez WPtel: [address] [place], [place] [phone] [place] FOLLOW UP 07/13/2020 Care Plan: PT Pending 06/27/2020 Visit Diagnosis Plan: Alzheimer's disease, unspecified Discussion: Worsening has started OTC supplements Inquiring about meals on wheels Follow Up: 3 months ICD-9 : 331.0 ICD-10 : G30.9 04/06/2020 Appointment: Arlyn Lopez WPtel: [address] [place], [place] [phone] [place] FOLLOW UP 04/06/2020 Care Plan: Referral Order SNOMED-CT : [id number] Pending 04/06/2020 Appointment: Arlyn Lopez WPtel: [address] [place], [place] [phone] [place] RESCHEDULED 02/24/2020 Care Plan: COMPREH[place] METAB[place] : 33406-9 Pending 12/14/2019 Care Plan: LIPID PANEL LOINC : 08475-1 Pending 12/14/2019 Care Plan: PT Pending 12/14/2019 [...] V58.61 ICD-10 : Z51.81 09/02/2019 Appointment: Arlyn Lopeztel: [facility] [place] [address] [place] originally 2 mo follow up Annual Well Visit 08/06 Visit Diagnosis Plan: Generalized anxiety disorder Dis cussion: Depakote already helping Follow Up: 2 months ICD-9 : 300.00 ICD-10 : F41.1 07/01/2019 Appointment: Arlyn Lopeztel: [address] [place] [address] FOLLOW UP 07/01/2019 Visit Diagnosis Plan: Spontaneous [...] : K92.1 05/27/2019 Appointment: Arlyn Lopez WPtel: [address] [place], [place] [phone] [place] FOLLOW UP 05/27/2019 Visit Diagnosis Plan: [...] 780.52 ICD-10 : F51.04 04/22/2019 Appointment: Arlyn Lopez WPtel: [address] [place], [place] [phone] [place] FOLLOW UP 04/22/2019 Visit Diagnosis Plan: [...] : K59.01 02/09/2019 Appointment: Arlyn Lopez WPtel: [address] [place], [place] [phone] [place] FOLLOW UP 02/09/2019 Patient Education: escitalopram oxalate- [employer] [facility] [id number] Completed 02/09/2019 Patient Education: doxepin- [employer] [id number] Completed 02/09/2019 Visit Diagnosis Plan: Nocturia Discussion: [...] : F51.04 01/07/2019 Appointment: Arlyn Lopez WPtel: [address] [place], [place] [phone] FOLLOW UP 01/07/2019 Patient Education: tamsulosin- [employer] [facility] [id number] Completed 01/07/2019 Patient Education: doxepin- [employer] [id number] Completed 01/07/2019 Care Plan: [place] : [address]-8 Pending 12/17/2018 Care Plan: CBC Pending 12/17/2018 Care Plan: LIPID PANEL LOINC : 47627-9 Pending 12/17/2018 Appointment: Arlyn Lopez WPtel: [address] [place], [place] [phone] [place] INJECTION 08/20/2018 Patient Education: Patient Medication [...] : I10 07/09/2018 Appointment: Arlyn Lopez WPtel: [address] [place], [place] [phone] FOLLOW UP 07/09/2018 Patient Education: Patient Medication Summary Completed 07/09/2018 Visit Diagnosis Plan: Generalized anxiety disorder Dis cussion: Add lexapro 10mg q HS ICD-9 : 300.00 ICD-10 : F41.1 11/27/2017 Visit Diagnosis Plan: Alzheimer's disease, unspecified Discussion: Change Namenda XR to Namenda 10mg po BI Follow Up: 3 months ICD-9 : 331.0 ICD-10 : G30.9 11/27/2017 Visit Diagnosis Plan: Encounter for [facility] adult medical examination without abnormal findings Discussion: Update fasting lab ICD-9 : V70.0 ICD-10 : Z00.00 11/27/2017 Appointment: Arlyn Lopez WPtel: [address] [place], [place] [phone] Annual Well Visit 11/27/2017 Patient Education: Patient Medication Summary Completed 11/27/2017 Patient Education: Patient Medication Summary Completed 11/14/2017 Care Plan: CBC Pending 11/14/2017 Care Plan: PT Pending 11/14/2017 Care Plan: COMPREHEN METABOLIC [place] : [id number] Pending 11/14/2017 Care Plan: LIPID PANEL LOINC : [id number] Pending 11/14/2017 Care Plan: ASSAY THYROID STIM HORMONE Pen ding 11/14/2017 Appointment: Arlyn Lopez WPtel: [address] [place], [place] [phone] US INJECTION 08/14/2017 Patient Education: Patient Medication Summary Completed 08/14/2017 Appointment: Arlyn Lopez WPtel: [address] [place], [place] [phone] [place] INJECTION 10/03/2016 Patient Education: Patient Medication Summary Completed 10/03/2016 Patient Education: Patient Medication Summary Completed 01/02/2016 Care Plan: CBC Ordered 01/02/2016 Visit Plan: Check fasting lab with next PT/INR Continue current meds Discussed trial of PPI but states gaviscon works if will take so will just try it 10/10/2015 Appointment: Arlyn Lopez WPtel: [address] [place], [place] [phone] 10/07/15 appt confirmed cn Annual Well Visit 05/2015 Patient Education: Patient Medication Summary Completed 10/10/2015 Appointment: Arlyn Lopez WPtel: [address] [place] [address] 08/31 no answer cell # 08/31 vm 2nd # FOLLOW UP 09/01/2014 Patient Education: Patient Medication Summary Completed 09/01/2014 Patient Education: Patient Medication Summary Completed 08/23/2014 Visit Plan: Lab discussed Check testicul ar US Change namenda to Namenda XR 23mg QD Check PSA 07/02/2013 Appointment: Arlyn Lopez WPtel: [address] [place] [address] ACUTE ILLNESS 07/02/2013 Patient Education: Patient Medication Summary Completed 07/02/2013 Visit Plan: Continue namenda 10mg po BID Discussed aricept 06/25/2012 Appointment: Arlyn Lopez WPtel: [address] [place] [address] confirmed w ACUTE ILLNESS 06/25/2012 Patient Education: Patient Medication Summary Completed 06/25/2012 Appointment: Arlyn Lopez WPtel: [address] [place] [address] FOLLOW UP 05/15/2012 Patient Education: Patient Medication Summary Completed 05/15/2012 Visit Plan: Continue current meds Lab di scussed Long discussion about meds, diet, exercise and weight loss for decreasing TG and elevating HDL Add Nystatin/TAC cream to use prn 12/06/2011 Appointment: Arlyn Lopez WPtel: [address] [place] [address] CHECK UP 12/06/2011 Patient Education: Patient Medication Summary Completed 12/06/2011 Visit Plan: Check fasting lab--CMP, lipi ds, PSA, PT/INR Loan deferment paperwork filled out 10/30/2010 Appointment: Arlyn Lopez WPtel: [address] [place] [address] ESTABLISHED PATIENT 10/30/2010 Patient Education: Patient Medication Summary Completed 10/30/2010 Referral: Angeline Arellano WPtel: [address] [id number] [place] Referral Appointment Requested Instructions Comment . [...]
--- OUTSIDE RECORDS SUMMARY | 2021-10-12 10:16 | XMS REPORT | CCD ---
Author Author Ronnie Lopez D.O. Organization [facility] Address [address] [place] [address] Phone Care Team Providers Care Senior Accountant Name Role Phone Arlyn Lopez D.O., PP Unavailable CCM Unavailable Summary Purpose Interface Exchange Insurance Providers Payer name Policy type / Coverage type Covered green party ID Effective Begin Date Effective End Date [employer] Medicare [id number] Unknown Family History Family History data not found Social History Social History Element Codes Description Effective Dates Marital status Unknown 12/06/[address]: 4382037 Former smoker 2000 12/06/2011 Allergies, Adverse Reactions, [...] VACCINE ICD-10: Z23 ICD-9: V04.81 10/02/2016 Active group home (current) use of anticoagulants ICD-10: Z79. 01 [...] 788.43 01/07/2019 Active Atherosclerotic heart disease of [place] coronary arter y without angina pectoris ICD-10: [...] Start Date Stop Date Status Fill Instructions warfarin 2 mg tablet RxNorm: 418849 TAKE 1 AND 1/2 TABL ETS ON SATURDAY, SATURDAY, SATURDAY, SATURDAY AND TAKE 2 TABLETS ON SATURDAY, SATURDAY AND Saturday08/23/2021 11/20/2021 Active memantine 10 mg tablet RxNorm: 940344 TAKE 1 TABLET TWI CE DAILY (REPLACES NAMENDA XR) 06/26/2021 09/23/2021 Inactive escitalopram 20 mg tablet RxNorm: 884861 TAKE 1 TABLET AT BEDTIME 0 06/26/2021 09/23/2021 Inactive tamsulosin 0.4 mg capsule RxNorm: 894506 TAKE 1 CAPSULE EVERY DAY 0 06/26/2021 09/23/2021 Inactive carbidopa 25 mg-levodopa 100 mg tablet RxNorm: 654876 T PHAM 1 TABLET TWICE DAILY FOR TREMORS 06/26/2021 07/04/2021 Inactive warfarin 2 mg tablet RxNorm: 464056 TAKE 1 AND 1/2 TABL ETS ON SATURDAY, SATURDAY, SATURDAY, SATURDAY AND TAKE 2 TABLETS ON SATURDAY, SATURDAY AND Saturday06/26/2021 06/26/2021 Inactive Sinemet 25 mg-100 mg tablet RxNorm: 420671 Take 1 Table t(s) Oral two times a day for tremors 04/26/2021 04/26/2021 Inactive memantine 10 mg tablet RxNorm: 725529 TAKE 1 TABLET TWI CE DAILY (REPLACES NAMENDA XR) 04/12/2021 04/12/2021 Inactive warfarin 2 mg tablet RxNorm: 851499 2 Tablet(s) Oral Mo through Saturday and 1.5 tablets on Saturday/Saturday01/19/2021 No Stop Date Active tamsulosin 0.4 mg capsule RxNorm: 601576 TAKE 1 CAPSULE EVERY DAY 0 12/19/2020 12/19/2020 Inactive warfarin 2 mg tablet RxNorm: 224022 TAKE 1 AND 1/2 TABL ETS ON SATURDAY, SATURDAY, SATURDAY, SATURDAY AND TAKE 2 TABLETS ON SATURDAY, SATURDAY AND Saturday12/12/2020 01/18/2021 Inactive escitalopram 20 mg tablet RxNorm: 650972 TAKE 1 TABLET AT BEDTIME 0 11/28/2020 11/28/2020 Inactive Namenda 10 mg tablet RxNorm: 393563 TAKE 1 TABLET TWICE DAILY (REPLACES NAMENDA XR) 10/17/2020 10/17/2020 Inactive melatonin 10 mg capsule RxNorm: 044215 1 Capsule(s) Oral QD No Stop Date Active tamsulosin 0.4 mg capsule RxNorm: 144624 TAKE 1 CAPSULE EVERY DAY 1 12/18/2020 Inactive warfarin 2 mg tablet RxNorm: 042460 TAKE 1 AND 1/2 TABL ETS ON SATURDAY, SATURDAY, SATURDAY, SATURDAY AND TAKE 2 TABLETS ON SATURDAY, SATURDAY AND Saturday07/12/2020 12/11/2020 Inactive warfarin 2 mg tablet RxNorm: 055334 TAKE 1 AND 1/2 TABL ETS ON SATURDAY, SATURDAY, SATURDAY, SATURDAY AND TAKE 2 TABLETS ON SATURDAY, SATURDAY AND Saturday06/27/2020 07/11/2020 Inactive Namenda 10 mg tablet RxNorm: 070741 TAKE 1 TABLET TWICE DAILY (REPLACES NAMENDA XR) 04/18/2020 10/16/2020 Inactive tamsulosin 0.4 mg capsule RxNorm: 758282 1 Capsule(s) Oral QD 02/1108/10/2020 Inactive Depakote ER 250 mg tablet,extended release RxNorm: 2938096 1 Tab let(s) Oral QPM 01/21/2020 04/20/2020 Inactive warfarin 2 mg tablet RxNorm: 225861 TAKE 1 AND 1/2 TABL ETS ON SATURDAY, SATURDAY, SATURDAY AND SATURDAY AND TAKE 2 TABLETS ON SATURDAY, SATURDAY AND Saturday12/14/2019 06/26/2020 Inactive escitalopram 20 mg tablet RxNorm: 447427 TAKE 1 TABLET AT BEDTIME 0 11/16/2019 11/27/2020 Inactive Namenda 10 mg tablet RxNorm: 583721 TAKE 1 TABLET TWICE DAILY (REPLACES NAMENDA XR) 10/08/2019 04/17/2020 Inactive tamsulosin 0.4 mg capsule RxNorm: 187187 1 Capsule(s) Oral QD 09/0202/11/2020 Inactive warfarin 2 mg tablet RxNorm: 289971 1.5 Tablet(s) PO on , , Sat, and Sun and 2 tablets on Sat, Sat, Sat07/13/2019 07/12/2019 Inactive Depakote ER 250 mg tablet,extended release RxNorm: 4726135 1 Tab let(s) PO BID 06/08/2019 09/05/2019 Inactive pravastatin 80 mg tablet RxNorm: 642185 TAKE 1 TABLET EVERY DAY 11/201809/01/2019 Inactive warfarin 2 mg tablet RxNorm: 577001 TAKE 1 AND 1/2 TABS ON SATURDAY,SATURDAY AND SATURDAY AND TAKE 2 TABS ON , , SAT AND SUN (NEED MD APPOINTMENT) 03/09/2019 07/13/2019 Inactive Namenda 10 mg tablet RxNorm: 994942 TAKE 1 TABLET TWICE DAILY (REPLACES NAMENDA XR) 02/09/2019 08/07/2019 Inactive doxepin 25 mg capsule RxNorm: 3572814 1 Capsule(s) PO QH S for sleep replaces 10mg dose 02/09/2019 04/21/2019 Inactive escitalopram 20 mg tablet RxNorm: 267884 1 Tablet(s) PO QHS 019 08/07/2019 Inactive tamsulosin 0.4 mg capsule RxNorm: 754496 1 Capsule(s) P O QPM for urinary frequency 01/07/2019 02/12/2020 Inactive divalproex 250 mg tablet,delayed release RxNorm: 0019587 1 Table t(s) PO QHS 01/07/2019 01/07/2019 Inactive doxepin 10 mg capsule RxNorm: 4223360 1-2 Capsule(s) PO QHS as n eeded for sleep 01/07/2019 02/08/2019 Inactive warfarin 2 mg tablet RxNorm: 292506 1 1/2 Tablet(s) PO MWF and 2 tablets on T Th Sat and Sun 12/29/2018 03/08/2019 Inactive metoprolol tartrate 50 mg tablet RxNorm: 653931 TAKE 1 TABLET T WICE DAILY 12/01/2018 06/30/2019 Inactive Namenda 10 mg tablet RxNorm: 503645 TAKE 1 TABLET TWICE DAILY (REPLACES NAMENDA XR) 09/22/2018 02/08/2019 Inactive warfarin 2 mg tablet RxNorm: 660119 1 1/2 Tablet(s) PO MWF and 2 tablets on T Th Sat and Sun 09/02/2018 09/01/2018 Inactive escitalopram 10 mg tablet RxNorm: 385935 1 Tablet(s) PO QHS 018 02/08/2019 Inactive pravastatin 80 mg tablet RxNorm: 605756 1 Tablet(s) PO QD 01/28/2018 10/24/2018 Inactive Namenda 10 mg tablet RxNorm: 903821 1 Tablet(s) PO BID 11/27/2017 Inactive escitalopram 10 mg tablet RxNorm: 744118 1 Tablet(s) PO QHS 018 06/09/2018 Inactive Namenda XR 28 mg capsule sprinkle,extended release RxNorm: 9 11501 TAKE ONE CAPSULE BY MOUTH ONCE DAILY 10/10/2017 11/26/2017 Inactive metoprolol tartrate 50 mg tablet RxNorm: 760198 Tablet( s) TAKE 1 TABLET TWICE DAILY 10/03/2017 09/27/2018 Inactive warfarin 2 mg tablet RxNorm: 067273 Tablet(s) TAKE 2 TA BLETS SATURDAY THROUGH SATURDAY AND 1 TABLET SATURDAY AND Saturday05/09/2017 09/02/2018 Inactive divalproex 250 mg tablet,delayed release RxNorm: 4442992 TAKE 1 TABLET TWICE DAILY 02/19/2017 01/06/2019 Inactive Namenda XR 28 mg capsule sprinkle,extended release RxNorm: 9 66635 TAKE 1 CAPSULE EVERY DAY 02/11/2017 10/09/2017 Inactive pravastatin 80 mg tablet RxNorm: 677574 1 Tablet(s) PO QD 01/21/2017 01/28/2018 Inactive Namenda XR 28 mg capsule sprinkle,extended release RxNorm: 9 48951 TAKE ONE CAPSULE BY MOUTH ONCE DAILY 09/24/2016 02/10/2017 Inactive metoprolol tartrate 50 mg tablet RxNorm: 080952 TAKE 1 TABLET T WICE DAILY 09/10/2016 10/03/2017 Inactive warfarin 2 mg tablet RxNorm: 914861 TAKE 2 TABLETS THROUGH SATURDAY AND 1 TABLET SATURDAY AND Saturday2016 05/09/2017 Inactive divalproex 250 mg tablet,delayed release RxNorm: 7960191 1 Table t(s) PO QHS 12/19/2015 12/12/2016 Inactive pravastatin 80 mg tablet RxNorm: 937593 1 Tablet(s) PO QD 12/19/2015 01/21/2017 Inactive Namenda XR 28 mg capsule sprinkle,extended release RxNorm: 9 52819 1 Capsule(s) PO QD 11/11/2015 09/23/2016 Inactive divalproex 250 mg tablet,delayed release RxNorm: 3804742 1 Table t(s) PO QHS 10/10/2015 12/19/2015 Inactive Namenda XR 28 mg capsule sprinkle,extended release RxNorm: 9 09343 1 Capsule(s) PO QD TAKE 1 CAPSULE EVERY DAY 11/09/2014 11/11/2015 Inactive Namenda XR 28 mg capsule sprinkle,ER 24hr RxNorm: 933698 1 PO QD TAKE ONE CAPSULE BY MOUTH ONCE DAILY 10/07/2014 11/09/2014 Inactive Namenda XR 28 mg capsule sprinkle,ER 24hr RxNorm: 682877 1 Caps ule(s) PO QD 11/10/2013 10/07/2014 Inactive metoprolol tartrate 50 mg tablet RxNorm: 458195 1 Tablet(s) PO BID 05/14/2013 05/08/2014 Inactive 1BID (REPLACES TOPROL) - [place] E ONE TABLET BY MOUTH TWICE DAILY (REPLACES TOPROL) Ativan 1 mg tablet RxNorm: 217354 1 Tablet(s) PO BID 05/01/201310/09 Inactive as needed for anxiety pravastatin 40 mg tablet RxNorm: 886166 1 Tablet(s) PO QD due for labs in late summer03/26/2013 11/10/2014 Inactive warfarin 2 mg tablet RxNorm: 308533 1 Tablet(s) PO Take 2 tablets by mouth Saturday through Saturday and 1 tablet on Saturday and Saturday10/07/2012 Inactive pravastatin 40 mg tablet RxNorm: 468566 1 Tablet(s) PO QD 08/13/2012 03/26/2013 Inactive metoprolol tartrate 50 mg tablet RxNorm: 350425 1 Tablet(s) PO BID 08/13/2012 05/14/2013 Inactive 1BID (REPLACES TOPROL) - [place] E ONE TABLET BY MOUTH TWICE DAILY (REPLACES TOPROL) warfarin 2 mg tablet RxNorm: 580411 1 Tablet(s) PO QD 08/13/201202/2012 Inactive warfarin 2 mg tablet RxNorm: 526244 Tablet(s) PO 11/07/2011 08/13/2012 Inactive 2QD - TAKE TWO TABLETS BY MOUTH EVERY DAY SATURDAY THROUGH SATURDAY AND 1 TABLET ON SATURDAY AND SATURDAY pravastatin 40 mg tablet RxNorm: 859029 1 Tablet(s) PO QD 10/15/2011 08/13/2012 Inactive Ativan 1 mg tablet RxNorm: 817574 1 Tablet(s) PO BID 10/01/201109/30 Active as needed for anxiety metoprolol tartrate 50 mg tablet RxNorm: 980553 1 Tablet(s) PO BID 08/27/2011 08/13/2012 Inactive 1BID (REPLACES TOPROL) - [place] E ONE TABLET BY MOUTH TWICE DAILY (REPLACES TOPROL) pravastatin 40 mg Tab RxNorm: 198465 1 Tablet(s) PO QD 07/10/201109/2011 Inactive Ativan 1 mg Tab RxNorm: 982513 1 Tablet(s) PO BID 07/02/2011 1 Active as needed for anxiety metoprolol tartrate 50 mg Tab RxNorm: 088087 1 Tablet(s ) PO BID 1BID (REPLACES TOPROL) - TAKE ONE TABLET BY MOUTH TWICE DAILY (REPLACES TOPROL) 03/12/2011 08/26/2011 Inactive Ativan 1 mg Tab RxNorm: 135237 1 Tablet(s) PO BID as needed for anxiety 02/26/2011 02/25/2011 Active warfarin 2 mg Tab RxNorm: 232492 Tablet(s) PO 2QD - T PHAM TWO TABLETS BY MOUTH EVERY DAY SATURDAY THROUGH SATURDAY AND 1 TABLET ON SATURDAY AND Saturday12/18/2010 11/07/2011 Inactive Ativan 1 mg Tab RxNorm: 704533 1 Tablet(s) PO BID PRN for anxiety 0 11/06/2010 01/06/2019 Inactive metoprolol tartrate 50 mg Tab RxNorm: 837708 1 Tablet(s ) PO BID 1BID (REPLACES TOPROL) - TAKE ONE TABLET BY MOUTH TWICE DAILY (REPLACES TOPROL) 09/11/2010 03/12/2011 Inactive Ativan 1 mg Tab RxNorm: 998802 1 Tablet(s) PO BID PRN for anxiety 1 11/06/2010 Inactive warfarin 2 mg Tab RxNorm: 575783 Tablet(s) PO 2QD - T PHAM TWO TABLETS BY MOUTH EVERY DAY SATURDAY THROUGH SATURDAY AND 1 TABLET ON SATURDAY AND Saturday07/24/2010 10/29/2010 Inactive metoprolol tartrate 50 mg Tab RxNorm: 789863 1 Tablet(s) PO QD 01/201009/11/2010 Inactive pravastatin 40 mg Tab RxNorm: 897164 1 Tablet(s) PO QD 06/06/201004/2011 Inactive Warfarin 2 mg Tab RxNorm: 109067 2 Tablet(s) PO QD 2 tablets by mouth Saturday through Saturday, and one tablet by mouth on Saturday and Saturday. 06/06/2010 07/23/2010 Inactive Ativan 1 mg Tab RxNorm: 272538 1 Tablet(s) PO QHS PRN for anxiety 0 06/06/2010 08/27/2010 Inactive Pravastatin 40 mg Tab RxNorm: 101789 1 Tablet(s) PO QD 04/14/201012/2009 Inactive Ativan 1 mg Tab RxNorm: 471163 1 Tablet(s) PO BID PRN for anxiety 0 02/23/2010 06/02/2010 Inactive Probiotic oral RxNorm: 6205 oral 04/07/2020 Active [place] 3 Natural Fish Oil Conc capsule RxNorm: 1 Capsule(s) PO QD 0 11/27/2017 Active turmeric-turmeric root extract oral RxNorm: 3434945 oral 11/27/19 18 Active magnesium oral RxNorm: 6574 oral 04/07/2020 Active Vitamin D3 5,000 unit tablet RxNorm: 167580 1 Tablet(s) PO QD 019 Active warfarin 2 mg tablet RxNorm: 934626 1 Tablet(s) PO QD 08/13/201207/2012 Inactive Ativan 1 mg Tab RxNorm: 769500 1 Tablet(s) PO BID as needed for anxiety 02/26/2011 02/25/2011 Inactive warfarin 2 mg Tab RxNorm: 464448 2 Tablet(s) PO QD saturday throsaturday06/06/2012 06/05/2012 Inactive Tricor 145 mg Tab RxNorm: 323592 1 Tablet(s) PO QD 12/06/2011 012 Inactive warfarin 4 mg tablet RxNorm: 753225 Tablet(s) PO 11/27/2017 11/26/2017 Inactive warfarin 2 mg Tab RxNorm: 445632 1 Tablet(s) PO QD on saturday and saturday06/06/2012 06/05/2012 Inactive warfarin 2 mg tablet RxNorm: 595372 1.5 Tablet(s) PO on , , Sat, and Sat and 2 tablets on Sat, Sat, Sat07/13/2019 07/12/2019 Inactive pravastatin 80 mg tablet RxNorm: 466952 1 Tablet(s) PO QD 12/19/2015 12/19/2015 Inactive metoprolol tartrate 50 mg tablet RxNorm: 359926 1 Tablet(s) PO QD 1 09/01/2019 Inactive Warfarin 2 mg Tab RxNorm: 272936 Tablet(s) PO 2 table ts by mouth Saturday through Saturday, and one tablet by mouth on Saturday and Saturday. 06/06/2010 08/0 12/2009 Inactive Namenda 10 mg Tab RxNorm: 462256 2 Tablet(s) PO QD 07/02/2013 013 Inactive warfarin 2 mg tablet RxNorm: 065698 1 1/2 Tablet(s) PO MWF and 2 tablets on T Th Sat and Sun 09/02/2018 09/01/2018 Inactive Ativan 1 mg Tab RxNorm: 503493 1 Tablet(s) PO BID PRN for anxiety 0 04/20/2010 04/19/2010 Inactive warfarin 2 mg Tab RxNorm: 681196 Tablet(s) PO take 2 tablets by mouth Sat-Sat and 1 tablet on Saturday and Saturday06/06/2012 06/05/2012 Inactive Depakote ER 250 mg tablet,extended release RxNorm: 7595252 1 Tab let(s) PO BID 11/27/2017 11/26/2017 Inactive warfarin 1 mg Tab RxNorm: 208037 1 Tablet(s) PO on Saturday and Saturday10/30/2010 [...] Code Result Date S ervice Location PT [id number] PT 24.4 Seconds 07/05/2021 Unknow n PT [id number] INR 2.2 07/05/2021 Unknown PT [id number] PT 25.2 Seconds 04/28/2021 Unknow n PT [id number] INR 2.3 04/28/2021 Unknown THYROID STIMULATING HORMONE 65411 TSH 2.271 uIU/mL 04/28/2021 Unknown COMPREHENSIVE METABOLIC 04292 AST 18 U/L 2020 Unknown COMPREHENSIVE METABOLIC 55973 ALT 9 U/L 2020 Unknown COMPREHENSIVE METABOLIC 01070 BUN 17 mg/dL 2020 Unknown COMPREHENSIVE METABOLIC 38672 ALBUMIN 3.8 g/dL 2020 Unknown COMPREHENSIVE METABOLIC 65762 CHLORIDE 108 mmol/L 04/28 Unknown COMPREHENSIVE METABOLIC 03625 Bili Total 0.7 mg/dL 04/28 Unknown COMPREHENSIVE METABOLIC 46740 ALK PHOS 76 U/L 2020 Unknown COMPREHENSIVE METABOLIC 55438 SODIUM 140 mmol/L 04/28 Unknown COMPREHENSIVE METABOLIC 84470 CREATININE 0.83 mg/dL 04/05 Unknown COMPREHENSIVE METABOLIC 16340 CALCIUM 9.5 mg/dL 2020 Unknown COMPREHENSIVE METABOLIC 83432 POTASSIUM 4.1 mmol/L 04/28 Unknown COMPREHENSIVE METABOLIC 92355 Total Protein 6.9 g/dL Unknown COMPREHENSIVE METABOLIC 94076 Glucose 106 mg/dL 2020 Unknown COMPREHENSIVE METABOLIC 18365 Bicarbonate 26 mmol/L 04/05 Unknown COMPREHENSIVE METABOLIC 11789 AGAP 6 mmol/L 2020 Unknown GFR CALC 6293580 GFR Non Afr Amr >60 mL/min 04/28/2021 Un known GFR CALC [id number] GFR Afr Amr >60 mL/min 04/28/2021 Unknow n COMPLETE BLOOD COUNT 7258753 WBC 4.6 10e9/L 04/28/20 21 Unknown COMPLETE BLOOD COUNT [id number] RBC 4.39 10e12/L 2020 Unknown COMPLETE BLOOD COUNT [id number] HEMOGLOBIN 14.2 g/dL 04/28/20 21 Unknown COMPLETE BLOOD COUNT [id number] HEMATOCRIT 41.1 % 04/28/20 21 Unknown COMPLETE BLOOD COUNT [id number] MCV 93.6 fL 1 Unknown COMPLETE BLOOD COUNT 4580070 MCH 32.3 pg 1 Unknown COMPLETE BLOOD COUNT [id number] MCHC 34.5 g/dL 1 Unknown COMPLETE BLOOD COUNT [id number] PLATELET COUNT 198 10e9/L Unknown COMPLETE BLOOD COUNT 6978537 Mean Plt Volume 9.3 fL Unknown COMPLETE BLOOD COUNT 9899474 Neut Auto 54.8 % 1 Unknown COMPLETE BLOOD COUNT [id number] Lymph Auto 33.7 % 04/28/20 21 Unknown COMPLETE BLOOD COUNT 2287405 [place] 9.6 % 1 Unknown COMPLETE BLOOD COUNT [id number] RDW 12.2 % 1 Unknown COMPLETE BLOOD COUNT 1389909 Eos Auto 1.7 % 1 Unknown COMPLETE BLOOD COUNT 1258905 Baso Auto 0.2 % 1 Unknown COMPLETE BLOOD COUNT [id number] Neutrophil Abs 2.52 10e9/L Unknown COMPLETE BLOOD COUNT [id number] Lymphocyte Abs 1.55 10e9/L Unknown COMPLETE BLOOD COUNT [id number] Monocyte Abs 0.44 10e9/L 04/05 Unknown COMPLETE BLOOD COUNT 6482914 Eosinophil Abs 0.08 10e9/L Unknown COMPLETE BLOOD COUNT [id number] RDW-SD 40.9 fL 1 Unknown COMPLETE BLOOD COUNT [id number] Basophil Abs 0.01 10e9/L 04/05 Unknown FREE T4 81450 T4 Free 0.81 ng/dL 04/28/2021 Unknown PT [id number] PT 19.8 Seconds 01/18/2021 Unknow n PT [id number] INR 1.6 01/18/2021 Unknown PT [id number] PT 18.7 Seconds 10/14/2020 Unknow n PT [id number] INR 1.5 10/14/2020 Unknown COMPREHENSIVE METABOLIC 56646 AST 17 U/L 2019 Unknown COMPREHENSIVE METABOLIC 27528 ALT 10 U/L 2019 Unknown COMPREHENSIVE METABOLIC 67045 BUN 19 mg/dL 2019 Unknown COMPREHENSIVE METABOLIC 02274 ALBUMIN 4.1 g/dL 2019 Unknown COMPREHENSIVE METABOLIC 89292 CHLORIDE 103 mmol/L 10/14 Unknown COMPREHENSIVE METABOLIC 87022 Bili Total 0.6 mg/dL 10/14 Unknown COMPREHENSIVE METABOLIC 79867 ALK PHOS 65 U/L 2019 Unknown COMPREHENSIVE METABOLIC 20314 SODIUM 141 mmol/L 10/14 Unknown COMPREHENSIVE METABOLIC 99963 CREATININE 0.77 mg/dL 10/04 Unknown COMPREHENSIVE METABOLIC 18935 CALCIUM 9.2 mg/dL 2019 Unknown COMPREHENSIVE METABOLIC 81678 POTASSIUM 4.2 mmol/L 10/14 Unknown COMPREHENSIVE METABOLIC 51704 Total Protein 6.7 g/dL Unknown COMPREHENSIVE METABOLIC 21841 Glucose 91 mg/dL 2019 Unknown COMPREHENSIVE METABOLIC 06215 Bicarbonate 28 mmol/L 10/04 Unknown COMPREHENSIVE METABOLIC 87769 AGAP 10 mmol/L 2019 Unknown FREE T4 77818 T4 Free 0.81 ng/dL 10/14/2020 Unknown HEMOGLOBIN A1C (GLYCOSYLATED) 6067845 Hgb A1c 91414-6 4.4 % 10/14/2020 Unknown HEMOGLOBIN A1C (GLYCOSYLATED) 1630558 Calc Mean Gluc 80 mg /dL 10/14/2020 Unknown COMPLETE BLOOD COUNT 8097409 WBC 5.4 10e9/L 10/14/20 20 Unknown COMPLETE BLOOD COUNT 2557029 RBC 4.40 10e12/L 2019 Unknown COMPLETE BLOOD COUNT 2215413 HEMOGLOBIN 14.4 g/dL 10/14/20 20 Unknown COMPLETE BLOOD COUNT 6556910 HEMATOCRIT 42.4 % 10/14/20 20 Unknown COMPLETE BLOOD COUNT 0449381 MCV 96.4 fL 0 Unknown COMPLETE BLOOD COUNT 6872232 MCH 32.7 pg 0 Unknown COMPLETE BLOOD COUNT 3094413 MCHC 34.0 g/dL 0 Unknown COMPLETE BLOOD COUNT 7048900 PLATELET COUNT 216 10e9/L 09/2020 Unknown COMPLETE BLOOD COUNT 5564849 Mean Plt Volume 9.5 fL 09/2020 Unknown COMPLETE BLOOD COUNT 5021679 Neut Auto 57.6 % 0 Unknown COMPLETE BLOOD COUNT 7965465 Lymph Auto 31.5 % 10/14/20 20 Unknown COMPLETE BLOOD COUNT 2505873 [place] 9.0 % 0 Unknown COMPLETE BLOOD COUNT 0717814 RDW 12.4 % 0 Unknown COMPLETE BLOOD COUNT 0323971 Eos Auto 1.7 % 0 Unknown COMPLETE BLOOD COUNT 4930512 Baso Auto 0.2 % 0 Unknown COMPLETE BLOOD COUNT 7239321 Neutrophil Abs 3.11 10e9/L Unknown COMPLETE BLOOD COUNT 7048527 Lymphocyte Abs 1.70 10e9/L Unknown COMPLETE BLOOD COUNT [id number] Monocyte Abs 0.49 10e9/L 10/04 Unknown COMPLETE BLOOD COUNT 5094486 Eosinophil Abs 0.09 10e9/L Unknown COMPLETE BLOOD COUNT 0753160 RDW-SD 42.4 fL 0 Unknown COMPLETE BLOOD COUNT 8650203 Basophil Abs 0.01 10e9/L 10/04 Unknown THYROID STIMULATING HORMONE 49190 TSH 2.071 uIU/mL 10/14/2020 Unknown LIPID GROUP 71806 Cholesterol 217 mg/dL 10/14/2020 Unkno wn LIPID GROUP 63560 Triglyceride 108 mg/dL 10/14/2020 Unkn own LIPID GROUP 38698 HDL CHOLESTEROL 46 mg/dL 10/14/2020 U nknown LIPID GROUP 51752 Chol/HDL Ratio 4.72 ratio 10/14/2020 U nknown LIPID GROUP 40627 NON-HDL Chol 171 mg/dL 10/14/2020 Unkn own LIPID GROUP 97241 LDL Cholesterol 149 mg/dL 10/14/2020 U nknown GFR CALC 6756061 GFR Non Afr Amr >60 mL/min 10/14/2020 Un known GFR CALC 7606270 GFR Afr Amr >60 mL/min 10/14/2020 Unknow n COMPLETE BLOOD COUNT 8633063 WBC 7.6 10e9/L 04/06/20 20 Unknown COMPLETE BLOOD COUNT [id number] RBC 3.90 10e12/L 2019 Unknown COMPLETE BLOOD COUNT 3280803 HEMOGLOBIN 12.0 g/dL 04/06/20 20 Unknown COMPLETE BLOOD COUNT 2668039 HEMATOCRIT 36.9 % 04/06/20 20 Unknown COMPLETE BLOOD COUNT [id number] MCV 94.6 fL 0 Unknown COMPLETE BLOOD COUNT 1928086 MCH 30.8 pg 0 Unknown COMPLETE BLOOD COUNT 1915278 MCHC 32.5 g/dL 0 Unknown COMPLETE BLOOD COUNT 1320451 PLATELET COUNT 257 10e9/L 01/2020 Unknown COMPLETE BLOOD COUNT 4472683 Mean Plt Volume 8.6 fL 01/2020 Unknown COMPLETE BLOOD COUNT 9246207 Neut Auto 68.7 % 0 Unknown COMPLETE BLOOD COUNT 4336995 Lymph Auto 22.0 % 04/06/20 20 Unknown COMPLETE BLOOD COUNT 4575726 [place] 8.3 % 0 Unknown COMPLETE BLOOD COUNT 2239847 RDW 12.7 % 0 Unknown COMPLETE BLOOD COUNT 6901599 Eos Auto 0.7 % 0 Unknown COMPLETE BLOOD COUNT 6562116 Baso Auto 0.3 % 0 Unknown COMPLETE BLOOD COUNT 9641035 Neutrophil Abs 5.22 10e9/L Unknown COMPLETE BLOOD COUNT 1029978 Lymphocyte Abs 1.67 10e9/L Unknown COMPLETE BLOOD COUNT 4031062 Monocyte Abs 0.63 10e9/L 01/2020 Unknown COMPLETE BLOOD COUNT 9779729 Eosinophil Abs 0.05 10e9/L Unknown COMPLETE BLOOD COUNT 9551234 RDW-SD 42.6 fL 0 Unknown COMPLETE BLOOD COUNT 4706306 Basophil Abs 0.02 10e9/L 01/2020 Unknown PT [id number] PT 19.3 Seconds 04/06/2020 Unknow n PT 0679207 INR 1.6 04/06/2020 Unknown COMPREHENSIVE METABOLIC 15837 AST 12 U/L 2019 Unknown COMPREHENSIVE METABOLIC 20441 ALT 7 U/L 2019 Unknown COMPREHENSIVE METABOLIC 52767 BUN 19 mg/dL 2019 Unknown COMPREHENSIVE METABOLIC 14421 ALBUMIN 3.8 g/dL 2019 Unknown COMPREHENSIVE METABOLIC 56936 CHLORIDE 103 mmol/L 04/06 Unknown COMPREHENSIVE METABOLIC 37929 Bili Total 0.4 mg/dL 04/06 Unknown COMPREHENSIVE METABOLIC 58225 ALK PHOS 78 U/L 2019 Unknown COMPREHENSIVE METABOLIC 50325 SODIUM 141 mmol/L 04/06 Unknown COMPREHENSIVE METABOLIC 27868 CREATININE 0.90 mg/dL 01/2020 Unknown COMPREHENSIVE METABOLIC 59274 CALCIUM 9.0 mg/dL 2019 Unknown COMPREHENSIVE METABOLIC 16487 POTASSIUM 3.8 mmol/L 04/06 Unknown COMPREHENSIVE METABOLIC 68718 Total Protein 6.1 g/dL Unknown COMPREHENSIVE METABOLIC 80272 Glucose 125 mg/dL 2019 Unknown COMPREHENSIVE METABOLIC 88398 Bicarbonate 27 mmol/L 01/2020 Unknown COMPREHENSIVE METABOLIC 95535 AGAP 11 mmol/L 2019 Unknown GFR CALC 5377590 GFR Non Afr Amr >60 mL/min 04/06/2020 Un known GFR CALC 3997040 GFR Afr Amr >60 mL/min 04/06/2020 Unknow n PT 5578525 PT 25.2 Seconds 09/02/2019 Unknow n PT 2458837 INR 2.2 09/02/2019 Unknown PT [id number] PT 26.5 Seconds 04/22/2019 Unknow n PT 2597266 INR 2.3 04/22/2019 Unknown FERRITIN 24471 FERRITIN 240.3 ng/mL 04/22/2019 Unknown COMPLETE BLOOD COUNT 1551381 WBC 7.7 10e9/L 04/22/20 19 Unknown COMPLETE BLOOD COUNT 7372465 RBC 4.19 10e12/L 2018 Unknown COMPLETE BLOOD COUNT 9088366 HEMOGLOBIN 13.5 g/dL 04/22/20 19 Unknown COMPLETE BLOOD COUNT 1250669 HEMATOCRIT 39.6 % 04/22/20 19 Unknown COMPLETE BLOOD COUNT [id number] MCV 94.5 fL 9 Unknown COMPLETE BLOOD COUNT 4473772 MCH 32.2 pg 9 Unknown COMPLETE BLOOD COUNT 9019017 MCHC 34.1 g/dL 9 Unknown COMPLETE BLOOD COUNT 8996127 PLATELET COUNT 235 10e9/L Unknown COMPLETE BLOOD COUNT 8859336 Mean Plt Volume 9.8 fL Unknown COMPLETE BLOOD COUNT 1323636 Neut Auto 68.5 % 9 Unknown COMPLETE BLOOD COUNT 3503928 Lymph Auto 22.4 % 04/22/20 19 Unknown COMPLETE BLOOD COUNT [id number] [place] 8.3 % 9 Unknown COMPLETE BLOOD COUNT 4955370 RDW 12.4 % 9 Unknown COMPLETE BLOOD COUNT 5085005 Eos Auto 0.5 % 9 Unknown COMPLETE BLOOD COUNT 1032848 Baso Auto 0.3 % 9 Unknown COMPLETE BLOOD COUNT 2813022 Neutrophil Abs 5.27 10e9/L Unknown COMPLETE BLOOD COUNT [id number] Lymphocyte Abs 1.72 10e9/L Unknown COMPLETE BLOOD COUNT [id number] Monocyte Abs 0.64 10e9/L 04/04 Unknown COMPLETE BLOOD COUNT [id number] Eosinophil Abs 0.04 10e9/L Unknown COMPLETE BLOOD COUNT [id number] RDW-SD 41.6 fL 9 Unknown COMPLETE BLOOD COUNT [id number] Basophil Abs 0.02 10e9/L 04/04 Unknown IRON 02549 Iron 95 ug/dL 04/22/2019 Unknown GFR CALC [id number] GFR Non Afr Amr >60 mL/min 01/05/2019 Un known GFR CALC [id number] GFR Afr Amr >60 mL/min 01/05/2019 Unknow n COMPREHENSIVE METABOLIC 23083 AST 15 U/L 2018 Unknown COMPREHENSIVE METABOLIC 38574 ALT 11 U/L 2018 Unknown COMPREHENSIVE METABOLIC 35380 BUN 16 mg/dL 2018 Unknown COMPREHENSIVE METABOLIC 44620 ALBUMIN 3.9 g/dL 2018 Unknown COMPREHENSIVE METABOLIC 69253 CHLORIDE 106 mmol/L 01/05 Unknown COMPREHENSIVE METABOLIC 62628 Bili Total 0.7 mg/dL 01/05 Unknown COMPREHENSIVE METABOLIC 51695 ALK PHOS 50 U/L 2018 Unknown COMPREHENSIVE METABOLIC 33306 SODIUM 138 mmol/L 01/05 Unknown COMPREHENSIVE METABOLIC 17606 CREATININE 0.74 mg/dL 02/2019 Unknown COMPREHENSIVE METABOLIC 06690 CALCIUM 9.0 mg/dL 2018 Unknown COMPREHENSIVE METABOLIC 44898 POTASSIUM 4.3 mmol/L 01/05 Unknown COMPREHENSIVE METABOLIC 99666 Total Protein 6.4 g/dL Unknown COMPREHENSIVE METABOLIC 70724 Glucose 114 mg/dL 2018 Unknown COMPREHENSIVE METABOLIC 18690 Bicarbonate 26 mmol/L 02/2019 Unknown COMPREHENSIVE METABOLIC 11669 AGAP 6 mmol/L 2018 Unknown COMPLETE BLOOD COUNT [id number] WBC 5.5 10e9/L 01/06/20 19 Unknown COMPLETE BLOOD COUNT [id number] RBC 4.27 10e12/L 2018 Unknown COMPLETE BLOOD COUNT [id number] HEMOGLOBIN 14.0 g/dL 01/06/20 19 Unknown COMPLETE BLOOD COUNT [id number] HEMATOCRIT 40.6 % 01/06/20 19 Unknown COMPLETE BLOOD COUNT [id number] MCV 95.1 fL 9 Unknown COMPLETE BLOOD COUNT [id number] MCH 32.8 pg 9 Unknown COMPLETE BLOOD COUNT [id number] MCHC 34.5 g/dL 9 Unknown COMPLETE BLOOD COUNT [id number] PLATELET COUNT 211 10e9/L 02/2019 Unknown COMPLETE BLOOD COUNT [id number] Mean Plt Volume 9.8 fL 02/2019 Unknown COMPLETE BLOOD COUNT [id number] Neut Auto 64.7 % 9 Unknown COMPLETE BLOOD COUNT [id number] Lymph Auto 24.3 % 01/06/20 19 Unknown COMPLETE BLOOD COUNT [id number] [place] Auto 9.7 % 9 Unknown COMPLETE BLOOD COUNT [id number] RDW 12.2 % 9 Unknown COMPLETE BLOOD COUNT [id number] Eos Auto 1.1 % 9 Unknown COMPLETE BLOOD COUNT 1381954 Baso Auto 0.2 % 9 Unknown COMPLETE BLOOD COUNT [id number] Neutrophil Abs 3.56 10e9/L Unknown COMPLETE BLOOD COUNT [id number] Lymphocyte Abs 1.34 10e9/L Unknown COMPLETE BLOOD COUNT [id number] Monocyte Abs 0.53 10e9/L 02/2019 Unknown COMPLETE BLOOD COUNT [id number] Eosinophil Abs 0.06 10e9/L Unknown COMPLETE BLOOD COUNT [id number] RDW-SD 41.3 fL 9 Unknown COMPLETE BLOOD COUNT [id number] Basophil Abs 0.01 10e9/L 02/2019 Unknown [facility] 12777 Cholesterol 145 mg/dL 01/05/2019 Unkno wn [facility] GROUP 83421 Triglyceride 153 mg/dL 01/05/2019 Unkn own [facility] 48893 HDL CHOLESTEROL 39 mg/dL 01/05/2019 U nknown [facility] 42439 Chol/HDL Ratio 3.72 ratio 01/05/2019 U nknown [facility] 61934 NON-HDL Chol 106 mg/dL 01/05/2019 Unkn own [facility] 35884 LDL Cholesterol 75 mg/dL 01/05/2019 U nknown PT [id number] PT 30.5 Seconds 12/15/2018 Unknow n PT [id number] INR 2.9 12/15/2018 Unknown PT [id number] PT 17.2 Seconds 09/08/2018 Unknow n PT [id number] INR 1.4 09/08/2018 Unknown [facility] 22326 Cholesterol 190 mg/dL 07/08/2018 Unkno wn [facility] 04232 Triglyceride 402 mg/dL 07/08/2018 Unkn own [facility] 92877 HDL CHOLESTEROL 36 mg/dL 07/08/2018 U nknown [facility] 29601 Chol/HDL Ratio 5.28 ratio 07/08/2018 U nknown [facility] 25052 NON-HDL Chol 154 mg/dL 07/08/2018 Unkn own [facility] 14512 LDL Cholesterol N/A Trig >400 018 Unknown GFR CALC 7983014 GFR Non Afr Amr >60 mL/min 07/08/2018 Un known GFR CALC [id number] GFR Afr Amr >60 mL/min 07/08/2018 Unknow n COMPLETE BLOOD COUNT [id number] WBC 5.0 10e9/L 07/08/20 18 Unknown COMPLETE BLOOD COUNT [id number] RBC 4.08 10e12/L 2017 Unknown COMPLETE BLOOD COUNT [id number] HEMOGLOBIN 13.3 g/dL 07/08/20 18 Unknown COMPLETE BLOOD COUNT [id number] HEMATOCRIT 38.6 % 07/08/20 18 Unknown COMPLETE BLOOD COUNT [id number] MCV 94.6 fL 8 Unknown COMPLETE BLOOD COUNT [id number] MCH 32.6 pg 8 Unknown COMPLETE BLOOD COUNT [id number] MCHC 34.5 g/dL 8 Unknown COMPLETE BLOOD COUNT [id number] PLATELET COUNT 205 10e9/L 02/2018 Unknown COMPLETE BLOOD COUNT [id number] Mean Plt Volume 9.8 fL 02/2018 Unknown COMPLETE BLOOD COUNT 6148410 Neut Auto 52.8 % 8 Unknown COMPLETE BLOOD COUNT 2385712 Lymph Auto 33.2 % 07/08/20 18 Unknown COMPLETE BLOOD COUNT 6373604 [place] Auto 11.6 % 8 Unknown COMPLETE BLOOD COUNT 0235038 RDW 12.5 % 8 Unknown COMPLETE BLOOD COUNT 1861884 Eos Auto 2.0 % 8 Unknown COMPLETE BLOOD COUNT 1945424 Baso Auto 0.4 % 8 Unknown COMPLETE BLOOD COUNT [id number] Neutrophil Abs 2.64 10e9/L Unknown COMPLETE BLOOD COUNT [id number] Lymphocyte Abs 1.66 10e9/L Unknown COMPLETE BLOOD COUNT [id number] Monocyte Abs 0.58 10e9/L 02/2018 Unknown COMPLETE BLOOD COUNT [id number] Eosinophil Abs 0.10 10e9/L Unknown COMPLETE BLOOD COUNT [id number] RDW-SD 41.8 fL 8 Unknown COMPLETE BLOOD COUNT [id number] Basophil Abs 0.02 10e9/L 02/2018 Unknown PT [id number] PT 32.9 Seconds 07/08/2018 Unknow n PT [id number] INR 3.2 07/08/2018 Unknown PT [id number] PT TNP:Duplicate Order 8 Unknown PT [id number] INR TNP:Duplicate Order 8 Unknown COMPREHENSIVE METABOLIC 31076 AST TNP:Duplicate Or grace 07/08/2018 Unknown COMPREHENSIVE METABOLIC 61996 ALT TNP:Duplicate Or grace 07/08/2018 Unknown COMPREHENSIVE METABOLIC 70639 BUN TNP:Duplicate Or grace 07/08/2018 Unknown COMPREHENSIVE METABOLIC 86355 ALBUMIN TNP:Duplicate Or grace 07/08/2018 Unknown COMPREHENSIVE METABOLIC 09997 CHLORIDE TNP:Duplicate Or grace 07/08/2018 Unknown COMPREHENSIVE METABOLIC 78908 Bili Total TNP:Duplicate O rder 07/08/2018 Unknown COMPREHENSIVE METABOLIC 36422 ALK PHOS TNP:Duplicate Or grace 07/08/2018 Unknown COMPREHENSIVE METABOLIC 57157 SODIUM TNP:Duplicate Or grace 07/08/2018 Unknown COMPREHENSIVE METABOLIC 70599 CREATININE TNP:Duplicate O rder 07/08/2018 Unknown COMPREHENSIVE METABOLIC 72304 CALCIUM TNP:Duplicate Or grace 07/08/2018 Unknown COMPREHENSIVE METABOLIC 31623 POTASSIUM TNP:Duplicate Or grace 07/08/2018 Unknown COMPREHENSIVE METABOLIC 00180 Total Protein TNP:Duplicat e Order 07/08/2018 Unknown COMPREHENSIVE METABOLIC 20486 Glucose TNP:Duplicate Or grace 07/08/2018 Unknown COMPREHENSIVE METABOLIC 53259 Bicarbonate TNP:Duplicate Order 07/08/2018 Unknown COMPREHENSIVE METABOLIC 23680 AGAP TNP:Duplicate Or grace 07/08/2018 Unknown COMPREHENSIVE METABOLIC 56558 AST 17 U/L 2017 Unknown COMPREHENSIVE METABOLIC 42087 ALT 12 U/L 2017 Unknown COMPREHENSIVE METABOLIC 56742 BUN 20 mg/dL 2017 Unknown COMPREHENSIVE METABOLIC 83548 ALBUMIN 4.0 g/dL 2017 Unknown COMPREHENSIVE METABOLIC 55241 CHLORIDE 107 mmol/L 07/08 Unknown COMPREHENSIVE METABOLIC 27428 Bili Total 0.3 mg/dL 07/08 Unknown COMPREHENSIVE METABOLIC 85590 ALK PHOS 58 U/L 2017 Unknown COMPREHENSIVE METABOLIC 46320 SODIUM 139 mmol/L 07/08 Unknown COMPREHENSIVE METABOLIC 62429 CREATININE 0.72 mg/dL 02/2018 Unknown COMPREHENSIVE METABOLIC 21710 CALCIUM 7.8 mg/dL 2017 Unknown COMPREHENSIVE METABOLIC 82233 POTASSIUM 4.1 mmol/L 07/08 Unknown COMPREHENSIVE METABOLIC 11376 Total Protein 6.2 g/dL Unknown COMPREHENSIVE METABOLIC 88133 Glucose 107 mg/dL 2017 Unknown COMPREHENSIVE METABOLIC 70704 Bicarbonate 22 mmol/L 02/2018 Unknown COMPREHENSIVE METABOLIC 01628 AGAP 10 mmol/L 2017 Unknown GFR CALC 5624126 GFR Non Afr Amr >60 mL/min 11/28/2017 Un known GFR CALC 8514276 GFR Afr Amr >60 mL/min 11/28/2017 Unknow n THYROID STIMULATING HORMONE 48609 TSH 4.029 uIU/mL 11/28/2017 Unknown LIP[facility] GROUP 49041 Cholesterol 181 mg/dL 11/28/2017 Unkno wn L[facility] GROUP 62206 Triglyceride 193 mg/dL 11/28/2017 Unkn own [facility] GROUP 89942 HDL CHOLESTEROL 36 11/28/2017 U nknown L[facility] GROUP 14135 Chol/HDL Ratio 5.03 ratio 11/28/2017 U nknown L[facility] GROUP 43446 NON-HDL Chol 145 mg/dL 11/28/2017 Unkn own [facility] 07292 LDL Cholesterol 106 mg/dL 11/28/2017 U nknown PT 6198024 PT 22.2 Seconds 11/28/2017 Unknow n PT 4514896 INR 2.0 11/28/2017 Unknown COMPREHENSIVE METABOLIC 33534 AST 19 U/L 2017 Unknown COMPREHENSIVE METABOLIC 03435 ALT 16 U/L 2017 Unknown COMPREHENSIVE METABOLIC 94637 BUN 22 mg/dL 2017 Unknown COMPREHENSIVE METABOLIC 71130 ALBUMIN 4.1 g/dL 2017 Unknown COMPREHENSIVE METABOLIC 29733 CHLORIDE 108 mmol/L 11/28 Unknown COMPREHENSIVE METABOLIC 49565 Bili Total 0.5 mg/dL 11/28 Unknown COMPREHENSIVE METABOLIC 12763 ALK PHOS 53 U/L 2017 Unknown COMPREHENSIVE METABOLIC 19353 SODIUM 141 mmol/L 11/28 Unknown COMPREHENSIVE METABOLIC 14592 CREATININE 0.83 mg/dL 11/05 Unknown COMPREHENSIVE METABOLIC 16659 CALCIUM 9.1 mg/dL 2017 Unknown COMPREHENSIVE METABOLIC 54916 POTASSIUM 4.6 mmol/L 11/28 Unknown COMPREHENSIVE METABOLIC 27121 Total Protein 6.5 g/dL Unknown COMPREHENSIVE METABOLIC 56463 Glucose 106 mg/dL 2017 Unknown COMPREHENSIVE METABOLIC 72036 Bicarbonate 26 mmol/L 11/05 Unknown COMPREHENSIVE METABOLIC 60342 AGAP 7 mmol/L 2017 Unknown COMPLETE BLOOD COUNT [id number] WBC 5.1 10e9/L 11/28/19 18 Unknown COMPLETE BLOOD COUNT [id number] RBC 4.22 10e12/L 2017 Unknown COMPLETE BLOOD COUNT 4796316 HEMOGLOBIN 13.5 g/dL 11/28/19 18 Unknown COMPLETE BLOOD COUNT 7446145 HEMATOCRIT 39.1 % 11/28/19 18 Unknown COMPLETE BLOOD COUNT 7245801 MCV 92.7 fL 8 Unknown COMPLETE BLOOD COUNT 9454170 MCH 32.0 pg 8 Unknown COMPLETE BLOOD COUNT 4404832 MCHC 34.5 g/dL 8 Unknown COMPLETE BLOOD COUNT 5910536 PLATELET COUNT 226 10e9/L Unknown COMPLETE BLOOD COUNT 6155554 Mean Plt Volume 9.6 fL Unknown COMPLETE BLOOD COUNT 2255594 Neut Auto 49.5 % 8 Unknown COMPLETE BLOOD COUNT 1744312 Lymph Auto 35.3 % 11/28/19 18 Unknown COMPLETE BLOOD COUNT 5413361 [place] Auto 12.4 % 8 Unknown COMPLETE BLOOD COUNT 8941575 RDW 12.4 % 8 Unknown COMPLETE BLOOD COUNT 1469653 Eos Auto 2.2 % 8 Unknown COMPLETE BLOOD COUNT 2381814 Baso Auto 0.6 % 8 Unknown COMPLETE BLOOD COUNT 1970734 Neutrophil Abs 2.52 10e9/L Unknown COMPLETE BLOOD COUNT 5386025 Lymphocyte Abs 1.80 10e9/L Unknown COMPLETE BLOOD COUNT 0499655 Monocyte Abs 0.63 10e9/L 11/05 Unknown COMPLETE BLOOD COUNT 9163574 Eosinophil Abs 0.11 10e9/L Unknown COMPLETE BLOOD COUNT [id number] RDW-SD 41.2 fL 8 Unknown COMPLETE BLOOD COUNT [id number] Basophil Abs 0.03 10e9/L 11/05 Unknown Procedures Procedure Codes Date SARSCOV & INF VIR A&B AG [place] CPT-4: 82712 10/04/2021 FLU VACC PRSV FREE INC ANTIG 65 AND OLDER CPT-4: 35281 08/18/2021 FLU VACC PRSV FREE INC ANTIG 65 AND OLDER CPT-4: 28904 08/18/2021 ADMIN INFLUENZA VIRUS VAC CPT-4: G0008 08/18/2021 ROUTINE VENIPUNCTURE CPT-4: 70675 07/05/2021 PROTHROMBIN TIME CPT-4: 07555 07/05/2021 PPPS, subseq visit CPT-4: G0439 10/12/2020 ROUTINE VENIPUNCTURE CPT-4: 78762 04/06/2020 COMPREHEN METABOLIC PANEL CPT-4: 09608 04/06/2020 COMPLETE CBC W/AUTO DIFF WBC CPT-4: 83621 04/06/2020 PROTHROMBIN TIME CPT-4: 66625 04/06/2020 PPPS, subseq visit CPT-4: G0439 09/02/2019 ROUTINE VENIPUNCTURE CPT-4: 97583 09/02/2019 PROTHROMBIN TIME CPT-4: 74515 09/02/2019 FLU VACC PRSV FREE INC ANTIG 65 AND OLDER CPT-4: 48683 08/20/2018 PNEUMOCOCCAL VACC 23 BRIDGET IM CPT-4: 59162 08/20/2018 ADMIN INFLUENZA VIRUS VAC CPT-4: G0008 08/20/2018 ADMIN PNEUMOCOCCAL VACCINE CPT-4: G0009 08/20/2018 PPPS, subseq visit CPT-4: G0439 11/27/2017 FLU VACC PRSV FREE INC ANTIG 65 AND OLDER CPT-4: 72656 08/14/2017 PNEUMOCOCCAL VACC 13 BRIDGET IM CPT-4: 86523 08/14/2017 ADMIN INFLUENZA VIRUS VAC CPT-4: G0008 08/14/2017 ADMIN PNEUMOCOCCAL VACCINE CPT-4: G0009 08/14/2017 FLU VACC PRSV FREE INC ANTIG 65 AND OLDER CPT-4: 28141 10/03/2016 ADMIN INFLUENZA VIRUS VAC CPT-4: G0008 10/03/2016 PPPS, subseq visit CPT-4: G0439 10/10/2015 FLUZONE, 5ML (Medicare) CPT-4: Q2038 09/01/2014 ADMIN INFLUENZA VIRUS VAC CPT-4: G0008 09/01/2014 Vital Signs Date Vital 07/05/2021 Blood Pressure 1: 122/80 Code: 8480-6 Heart Rate 1: 92 bpm Respiratory Rate: 20 bpm SpO2: 96% Temperature: 36.8 (C) / 98.2 (F) We ight: 207 lbs Code: 21326-7 04/26/2021 Blood Pressure 1: 126/82 Code: 8480-6 Heart Rate 1: 104 bpm Respiratory Rate: 20 bpm SpO2: 96% Temperature: 36.7 (C) / 98.1 (F) We ight: 212 lbs Code: 44937-2 10/12/2020 Blood Pressure 1: 104/68 Code: 8480-6 BMI: 31.6 Code: 06160-7 Heart Rate 1: 96 bpm Height: 5'7" Code: 8302-2 Respiratory Rate: 20 bpm SpO2: 95% Temperature: 36.9 (C) / 98.5 (F) Weight: 202 lbs Code: 61292-3 07/13/2020 Blood Pressure 1: 128/72 Code: 8480-6 Heart Rate 1: 76 bpm Respiratory Rate: 18 bpm SpO2: 97% Temperature: 36.3 (C) / 97.3 (F) We ight: 190 lbs Code: 87803-5 04/06/2020 Blood Pressure 1: 106/68 Code: 8480-6 BMI: 29.1 Code: 47316-8 Heart Rate 1: 96 bpm Height: 5'7" Code: 8302-2 Respiratory Rate: 20 bpm SpO2: 96% Temperature: 36.8 (C) / 98.2 (F) Weight: 186 lbs Code: 84831-7 09/02/2019 Blood Pressure 1: 94/50 Code: 8480-6 BMI: 29.8 C ode: 20665-3 Heart Rate 1: 68 bpm Height: 5'7" Code: 8302-2 Respiratory Rate: 20 bpm SpO2: 96% Temperature: 36.6 (C) / 97.9 (F) Weight: 190 lbs Code: 51366-7 07/01/2019 Blood Pressure 1: 112/60 Code: 8480-6 Heart Rate 1: 88 bpm Respiratory Rate: 20 bpm SpO2: 94% Temperature: 36.8 (C) / 98.2 (F) We ight: 201 lbs Code: 30154-1 05/27/2019 Blood Pressure 1: 104/50 Code: 8480-6 Heart Rate 1: 62 bpm SpO2: 95% Temperature: 36.3 (C) / 97.4 (F) Weight: 204 lbs Code: 48267-2 04/22/2019 Blood Pressure 1: 112/72 Code: 8480-6 Heart Rate 1: 64 bpm Respiratory Rate: 20 bpm SpO2: 95% Temperature: 36.8 (C) / 98.2 (F) We ight: 207 lbs Code: 39540-6 02/09/2019 Blood Pressure 1: 104/60 Code: 8480-6 Heart Rate 1: 72 bpm Respiratory Rate: 20 bpm SpO2: 95% Temperature: 37.1 (C) / 98.8 (F) We ight: 216 lbs Code: 40436-5 01/07/2019 Blood Pressure 1: 122/74 Code: 8480-6 Heart Rate 1: 96 bpm Respiratory Rate: 20 bpm SpO2: 96% Temperature: 36.7 (C) / 98.1 (F) We ight: 219 lbs Code: 09332-7 07/09/2018 Blood Pressure 1: 118/65 Code: 8480-6 Heart Rate 1: 62 bpm SpO2: 94% Temperature: 36.2 (C) / 97.1 (F) Weight: 237 lbs Code: 58824-2 11/27/2017 Blood Pressure 1: 124/70 Code: 8480-6 BMI: 35.2 Code: 13596-9 Heart Rate 1: 64 bpm Height: 5'8" Code: 8302-2 Respiratory Rate: 20 bpm SpO2: 94% Temperature: 36.9 (C) / 98.5 (F) Weight: 235 lbs Code: 68577-3 10/10/2015 Blood Pressure 1: 126/78 Code: 8480-6 BMI: 36.0 Code: 80589-4 Heart Rate 1: 72 bpm Height: 5'8" Code: 8302-2 Respiratory Rate: 20 bpm Temperatu re: 36.9 (C) / 98.4 (F) Weight: 240 lbs Code: 12065-1 09/01/2014 Blood Pressure 1: 114/70 Code: 8480-6 BMI: 35.4 Code: 53102-7 Heart Rate 1: 76 bpm Height: 5'8" Code: 8302-2 Respiratory Rate: 20 bpm Temperatu re: 36.7 (C) / 98.1 (F) Weight: 236 lbs Code: 64603-8 07/02/2013 Blood Pressure 1: 124/90 Code: 8480-6 BMI: 33.7 Code: 31696-0 Heart Rate 1: 76 bpm Height: 5'8" Code: 8302-2 Respiratory Rate: 20 bpm Temperatu re: 36.6 (C) / 97.8 (F) Weight: 225 lbs Code: 57721-6 06/25/2012 Blood Pressure 1: 144/100 Code: 8480-6 BMI: 34.5 Code: 96156-2 Heart Rate 1: 76 bpm Height: 5'8" Code: 8302-2 Respiratory Rate: 20 bpm Temperatu re: 36.6 (C) / 97.9 (F) Weight: 230 lbs Code: 23609-1 05/15/2012 Blood Pressure 1: 112/70 Code: 8480-6 BMI: 34.6 Code: 37381-3 Heart Rate 1: 76 bpm Height: 5'8" Code: 8302-2 Respiratory Rate: 20 bpm Temperatu re: 37.0 (C) / 98.6 (F) Weight: 231 lbs Code: 48011-4 12/06/2011 Blood Pressure 1: 142/90 Code: 8480-6 BMI: 35.4 Code: 22032-8 Heart Rate 1: 72 bpm Height: 5'8" Code: 8302-2 Respiratory Rate: 20 bpm Temperatu re: 36.9 (C) / 98.4 (F) Weight: 236 lbs Code: 38165-0 10/30/2010 Blood Pressure 1: 114/78 Code: 8480-6 Heart Rate 1: 76 bpm Temperature: 36.3 (C) / 97.4 (F) Weight: 228 lbs Code: 39377-2 Functional Status No Functional Status data Reason [...] ativan; Encounters Encounter Performer Location Codes Date ([id number]) NURSE/OUTPATIENT VISIT EST Diagnosis: Cough[ICD10: R05.9] Diagnosis: Exposure to COVID-19 virus[ICD10: Z20.822] Arlyn THOMPSONNDDEMETRI [facility] CPT-4: 58453 10/04/2021 ([id number]) NURSE/OUTPATIENT VISIT EST Diagnosis: FLU VACCINE[ICD10: Z23] Arlyn THOMPSONND DEMETRI [facility] CPT-4: 74558 08/18/2021 ([id number]) OFFICE/OUTPATIENT VISIT EST Diagnosis: Parkinson disease[ICD10: G20] 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[ICD10: Z79.01] Arlyn THOMPSONNDER DO [facility] CPT-4: 24273 07/05/2021 ([id number]) OFFICE/OUTPATIENT VISIT EST Diagnosis: Parkinson disease[ICD10: G20] Diagnosis: Dementia[ICD10: F03.90] Arlyn THOMPSONND DEMETRI [facility] CPT-4: 78949 04/26/2021 ([id number]) OFFICE/OUTPATIENT VISIT EST Diagnosis: 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] Diagnosis: 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: G30.9] Arlyn THOMPSONNDER [facility] CPT-4: 43760 07/13/2020 ([id number]) OFFICE/OUTPATIENT VISIT EST Diagnosis: Alzheimer's disease, unspecified[ICD10: G30.9] Arlyn THOMPSONNDDEMETRI DO [facility] CPT-4: 66484 04/06/2020 ([id number]) OFFICE/OUTPATIENT VISIT EST Diagnosis: Alzheimer's disease with late onset[ICD10: G30.1] Diagnosis: Generalized anxiety disorder[ICD10: F41.1] Diagnosis: Unspecified dementia with behavioral disturbance[ICD10: F03.91] Arlyn FAUSTIN RmDiane JULIO [facility] CPT-4: 13934 07/01/2019 ([id number]) OFFICE/OUTPATIENT VISIT EST Diagnosis: Alzheimer's disease with late onset[ICD10: G30.1] Diagnosis: Abnormal weight loss[ICD10: R63.4] Diagnosis: Essential (primary) hypertension[ICD10: I10] Diagnosis: Melena[ICD10: K92.1] Diagnosis: Unspecified dementia with behavioral disturbance[ICD10: F03.91] Diagnosis: Spontaneous ecchymoses[ICD10: R23.3] Arlyn ROCHE RmDiane JULIO [facility] CPT-4: 77217 05/27/2019 ([id number]) OFFICE/OUTPATIENT VISIT EST Diagnosis: 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] Diagnosis: Alzheimer's disease with late onset[ICD10: G30.1] Diagnosis: Melena[ICD10: K92.1] Diagnosis: Abnormal weight loss[ICD10: R63.4] Arlyn VENEGAS Krish LOPEZ [facility] [employer] [facility] CPT-4: 53833 04/22/2019 ([id number]) OFFICE/OUTPATIENT VISIT EST Diagnosis: 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] Diagnosis: Slow transit constipation[ICD10: K59.01] Diagnosis: Unspecified dementia with behavioral disturbance[ICD10: F03.91] Arlyn FAUSTIN RmDiane JULIO [facility] CPT-4: 58897 02/09/2019 ([id number]) OFFICE/OUTPATIENT VISIT EST Diagnosis: Alzheimer's disease with late onset[ICD10: G30.1] Diagnosis: 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] Diagnosis: Nocturia[ICD10: R35.1] Diagnosis: Constipation, unspecified[ICD10: K59.00] Arlyn FAUSTIN RmDiane JULIO [facility] CPT-4: 83792 01/07/2019 ([id number]) NURSE/OUTPATIENT VISIT EST Diagnosis: FLU VACCINE[ICD10: Z23] Diagnosis: PNEUMOCOCCAL VACCINE[ICD10: Z23] Arlyn LOPEZ DO [facility] CPT-4: 17769 08/20/2018 ([id number]) OFFICE/OUTPATIENT VISIT EST Diagnosis: Mixed hyperlipidemia[ICD10: E78.2] Diagnosis: Essential (primary) hypertension[ICD10: I10] Diagnosis: Alzheimer's disease, unspecified[ICD10: G30.9] Arlyn LOPEZ [facility] CPT-4: 06678 07/09/2018 ([id number]) OFFICE/OUTPATIENT VISIT EST Diagnosis: PNEUMOCOCCAL VACCINE[ICD10: Z23] Diagnosis: FLU VACCINE[ICD10: Z23] Arlyn BRYSON ER [facility] CPT-4: 85661 08/14/2017 ([id number]) OFFICE/OUTPATIENT VISIT EST Diagnosis: FLU VACCINE[ICD10: Z23] Arlyn BRYSON [facility] CPT-4: 44652 10/03/2016 ([id number]) OFFICE/OUTPATIENT VISIT EST Diagnosis: HYPERTENSION[ICD9: 401.9] Diagnosis: HYPERLIPIDEMIA NEC/NOS[ICD9: 272.4] Diagnosis: MEMORY LOSS[ICD9: 780.93] Diagnosis: - I - ANXIETY STATE NOS[ICD9: 300.00] Diagnosis: FLU VACCINE[ICD10: Z23] Arlyn BRYSON ER [facility] CPT-4: 57618 09/01/2014 OFFICE/OUTPATIENT VISIT EST Diagnosis: HYPERTENSION[ICD9: 401.9] Diagnosis: CAD[ICD9: 414.00] Diagnosis: HYPERLIPIDEMIA NEC/NOS[ICD9: 272.4] Diagnosis: MEMORY LOSS[ICD9: 780.93] Diagnosis: ANXIETY STATE NOS[ICD9: 300.00] Diagnosis: Testicular pain[ICD9: 608.9] Arlyn LOPEZ [facility] CPT-4: 56054 07/02/2013 ([id number]) OFFICE/OUTPATIENT VISIT EST Diagnosis: MEMORY LOSS[ICD9: 780.93] Arlyn ALANIZR [facility] CPT-4: 32189 06/25/2012 ([id number]) OFFICE/OUTPATIENT VISIT EST Diagnosis: HYPERLIPIDEMIA NEC/NOS[ICD9: 272.4] Diagnosis: HYPERTENSION[ICD9: 401.9] Diagnosis: CAD[ICD9: 414.00] Diagnosis: MEMORY LOSS[ICD9: 780.93] Arlyn SIMMONS [facility] CPT-4: 66681 05/15/2012 PER PM REEVAL EST PAT 65+ YR Diagnosis: ROUTINE MEDICAL EXAM[ICD9: V70.0] Diagnosis: HYPERLIPIDEMIA NEC/NOS[ICD9: 272.4] Diagnosis: HYPERTENSION[ICD9: 401.9] Diagnosis: CAD[ICD9: 414.00] Diagnosis: Seborrheic dermatitis[ICD9: 690.10] Arlyn Rutherford DONNATROY [facility] CPT-4: 65500 12/06/2011 ([id number]) OFFICE/OUTPATIENT VISIT, EST Arlyn LOPEZ [facility] [employer] [facility] CPT-4: 96100 10/30/2010 Plan of Care Planned Activity Notes Codes Status Date Appointment: Arlyn Lopeztel: [address] [place] [address] Immunizations 08/18/2021 Visit Diagnosis Plan: Parkinson disease Discussion: In crease sinemet 25/100mg 2po BID Call in 1month ICD-9 : 332.0 ICD-10 : G20 07/05/2021 Visit Diagnosis Plan: joint terminal attack controller (current) use of antic oagulants Discussion: PT/INR drawn ICD-9 : V58.61 ICD-10 : Z79.01 07/05/2021 Appointment: Arlyn Lopeztel: [address] [place], [place] [phone] [place] FOLLOW UP 07/05/2021 Visit Diagnosis Plan: Parkinson disease Discussion: Tr ial of sinemet 25/100mg po BID Fwup 2mos ICD-9 : 332.0 ICD-10 : G20 04/26/2021 Appointment: Arlyn Lopez WPtel: [address] [place], [place] [phone] [place] FOLLOW UP 04/26/2021 Appointment: Arlyn Lopez WPtel: [address] [place], [place] [phone] [place] CANCELED 01/11/2021 Visit Diagnosis Plan: Encounter for [facility] adult medical examination without abnormal findings [...] ICD-10 : G30.1 10/12/2020 Visit Diagnosis Plan: group home (current) use of antic oagulants Discussion: Update PT/INR ICD-9 : V58.61 ICD-10 : Z79.01 10/12/2020 Appointment: Arlyn Lopez WPtel: [address] [place], [place] [phone] Annual Well Visit 10/12/2020 Visit Diagnosis Plan: [...] : F02.81 07/13/2020 Appointment: Arlyn Lopez WPtel: [address] [place], [place] [phone] [place] FOLLOW UP 07/13/2020 Care Plan: PT Pending 06/27/2020 Visit Diagnosis Plan: Alzheimer's disease, unspecified Discussion: Worsening has started OTC supplements Inquiring about meals on wheels Follow Up: 3 months ICD-9 : 331.0 ICD-10 : G30.9 04/06/2020 Appointment: Arlyn Lopez WPtel: [address] [place], [place] [phone] [place] FOLLOW UP 04/06/2020 Care Plan: Referral Order SNOMED-CT : [id number] Pending 04/06/2020 Appointment: Arlyn Lopez WPtel: [address] [place] [address] RESCHEDULED 02/24/2020 Care Plan: COMPREH[place] METAB[place] : 67798-4 Pending 12/14/2019 Care Plan: LIPID PANEL LOINC : 02724-6 Pending 12/14/2019 Care Plan: PT Pending 12/14/2019 [...] : Z51.81 09/02/2019 Appointment: Arlyn Lopez WPtel: [address] [place], [place] [phone] [place] originally 2 mo follow up Annual Well Visit 08/06 Visit Diagnosis Plan: Generalized anxiety disorder Dis cussion: Depakote already helping Follow Up: 2 months ICD-9 : 300.00 ICD-10 : F41.1 07/01/2019 Appointment: Arlyn Lopez WPtel: [address] [place] [address] [place] FOLLOW UP 07/01/2019 Visit Diagnosis Plan: [...] 578.1 ICD-10 : K92.1 05/27/2019 Appointment: Arlyn Lopeztel: [address] [place] [address] [place] FOLLOW UP 05/27/2019 Visit Diagnosis Plan: [...] : F51.04 04/22/2019 Appointment: Arlyn Lopez WPtel: [address] [place] [address] [place] FOLLOW UP 04/22/2019 Visit Diagnosis Plan: [...] : K59.01 02/09/2019 Appointment: Arlyn Lopez WPtel: [address] [place], [place] [phone] FOLLOW UP 02/09/2019 Patient Education: escitalopram oxalate- [employer] [id number] Completed 02/09/2019 Patient Education: doxepin- [employer] [id number] Completed 02/09/2019 Visit Diagnosis Plan: Nocturia Discussion: [...] : F51.04 01/07/2019 Appointment: Arlyn Lopez WPtel: [address] [place], [place] [phone] FOLLOW UP 01/07/2019 Patient Education: tamsulosin- [employer] [id number] Completed 01/07/2019 Patient Education: doxepin- [employer] [id number] Completed 01/07/2019 Care Plan: COMPREH[place] METABOLIC [place]EL [place] : 04522-0 Pending 12/17/2018 Care Plan: CBC Pending 12/17/2018 Care Plan: LIPID PANEL LOINC : 53035-2 Pending 12/17/2018 Appointment: Arlyn Lopez WPtel: [address] [place], [place] [phone] [place] INJECTION 08/20/2018 Patient Education: Patient Medication [...] : I10 07/09/2018 Appointment: Arlyn Lopez WPtel: [address] [place], [place] [phone] [place] FOLLOW UP 07/09/2018 Patient Education: Patient Medication Summary Completed 07/09/2018 Visit Diagnosis Plan: Generalized anxiety disorder Dis cussion: Add lexapro 10mg q HS ICD-9 : 300.00 ICD-10 : F41.1 11/27/2017 Visit Diagnosis Plan: Alzheimer's disease, unspecified Discussion: Change Namenda XR to Namenda 10mg po BI Follow Up: 3 months ICD-9 : 331.0 ICD-10 : G30.9 11/27/2017 Visit Diagnosis Plan: Encounter for [facility] medical examination without abnormal findings Discussion: Update fasting lab ICD-9 : V70.0 ICD-10 : Z00.00 11/27/2017 Appointment: Arlyn Lopez WPtel: [address] [place] [address] Annual Well Visit 11/27/2017 Patient Education: Patient Medication Summary Completed 11/27/2017 Patient Education: Patient Medication Summary Completed 11/14/2017 Care Plan: CBC Pending 11/14/2017 Care Plan: PT Pending 11/14/2017 Care Plan: COMPREH[place] METAB[place] : 28592-6 Pending 11/14/2017 Care Plan: LIPID PANEL LOINC : 59108-8 Pending 11/14/2017 Care Plan: ASSAY THYROID STIM HORMONE Pen ding 11/14/2017 Appointment: Arlyn Lopez WPtel: [address] [place], [place] [phone] [place] INJECTION 08/14/2017 Patient Education: Patient Medication Summary Completed 08/14/2017 Appointment: Arlyn Lopez WPtel: [address] [place], [place] [phone] [place] INJECTION 10/03/2016 Patient Education: Patient Medication Summary Completed 10/03/2016 Patient Education: Patient Medication Summary Completed 01/02/2016 Care Plan: CBC Ordered 01/02/2016 Visit Plan: Check fasting lab with next PT/INR Continue current meds Discussed trial of PPI but states gaviscon works if will take so will just try it 10/10/2015 Appointment: Arlyn Lopeztel: [address] [place], [place] [phone] 10/07/15 appt confirmed cn Annual Well Visit 05/2015 Patient Education: Patient Medication Summary Completed 10/10/2015 Appointment: Arlyn Lopez WPtel: [address] [place], [place] [id number] 08/31 no answer cell # 08/31 vm 2nd # FOLLOW UP 09/01/2014 Patient Education: Patient Medication Summary Completed 09/01/2014 Patient Education: Patient Medication Summary Completed 08/23/2014 Visit Plan: Lab discussed Check testicul ar [place] Change namenda to Namenda XR 23mg QD Check PSA 07/02/2013 Appointment: Arlyn Lopez WPtel: [address] [place], [place] [id number] ACUTE ILLNESS 07/02/2013 Patient Education: Patient Medication Summary Completed 07/02/2013 Visit Plan: Continue namenda 10mg po BID Discussed aricept 06/25/2012 Appointment: Arlyn Lopez WPtel: [address] [place], [place] [phone] confirmed w ACUTE ILLNESS 06/25/2012 Patient Education: Patient Medication Summary Completed 06/25/2012 Appointment: Arlyn Lopez WPtel: [address] [place], [place] [phone] FOLLOW UP 05/15/2012 Patient Education: Patient Medication Summary Completed 05/15/2012 Visit Plan: Continue current meds Lab di scussed Long discussion about meds, diet, exercise and weight loss for decreasing TG and elevating HDL Add Nystatin/TAC cream to use prn 12/06/2011 Appointment: [facility] [phone] [id number] [place] [facility] UP 12/06/2011 Patient Education: Patient Medication Summary Completed 12/06/2011 Visit Plan: Check fasting lab--CMP, lipi ds, PSA, PT/INR Loan deferment paperwork filled out 10/30/2010 Appointment: Arlyn Lopez WPtel: [phone] [id number] [place] ESTABLISHED PATIENT 10/30/2010 Patient Education: Patient Medication Summary Completed 10/30/2010 Referral: Angeline Arellano WPtel: [address] [place] [address] [place] Referral Appointment Requested Instructions Comment . [...]
--- OUTSIDE RECORDS SUMMARY | 2021-10-12 10:16 | XMS REPORT | CCD ---
Author Author Ronnie Lopez D.O. Organization [facility] Address [address] [place] [address] Phone Care Team Providers Care Scientific Associate Name Role Phone Arlyn Lopez D.O., PP Unavailable CCM Unavailable Summary Purpose Interface Exchange Insurance Providers Payer name Policy type / Coverage type Covered libertarian ID Effective Begin Date Effective End Date [employer] Medicare [id number] Unknown Family History Family History data not found Social History Social History Element Codes Description Effective Dates Marital status Unknown 12/06/[address]: 9875592 Former smoker 2000 12/06/2011 Allergies, Adverse Reactions, [...] VACCINE ICD-10: Z23 ICD-9: V04.81 10/02/2016 Active [facility] (current) use of anticoagulants ICD-10: Z79. 01 [...] 788.43 01/07/2019 Active Atherosclerotic heart disease of [place] coronary arter y without angina pectoris ICD-10: [...] Fill Instructions warfarin 2 mg tablet RxNorm: 403112 TAKE 1 AND 1/2 TABL ETS ON SATURDAY, SATURDAY, SATURDAY, SATURDAY AND TAKE 2 TABLETS ON SATURDAY, SATURDAY AND Saturday08/23/2021 11/20/2021 Active memantine 10 mg tablet RxNorm: 319875 TAKE 1 TABLET TWI CE DAILY (REPLACES NAMENDA XR) 06/26/2021 09/23/2021 Inactive escitalopram 20 mg tablet RxNorm: 987088 TAKE 1 TABLET AT BEDTIME 0 06/26/2021 09/23/2021 Inactive tamsulosin 0.4 mg capsule RxNorm: 734488 TAKE 1 CAPSULE EVERY DAY 0 06/26/2021 09/23/2021 Inactive carbidopa 25 mg-levodopa 100 mg tablet RxNorm: 332369 T PHAM 1 TABLET TWICE DAILY FOR TREMORS 06/26/2021 07/04/2021 Inactive warfarin 2 mg tablet RxNorm: 536293 TAKE 1 AND 1/2 TABL ETS ON SATURDAY, SATURDAY, SATURDAY, SATURDAY AND TAKE 2 TABLETS ON SATURDAY, SATURDAY AND Saturday06/26/2021 06/26/2021 Inactive Sinemet 25 mg-100 mg tablet RxNorm: 281474 Take 1 Table t(s) Oral two times a day for tremors 04/26/2021 04/26/2021 Inactive memantine 10 mg tablet RxNorm: 427699 TAKE 1 TABLET TWI CE DAILY (REPLACES NAMENDA XR) 04/12/2021 04/12/2021 Inactive warfarin 2 mg tablet RxNorm: 522451 2 Tablet(s) Oral Mo through Saturday and 1.5 tablets on Saturday/Saturday01/19/2021 No Stop Date Active tamsulosin 0.4 mg capsule RxNorm: 771590 TAKE 1 CAPSULE EVERY DAY 0 12/19/2020 12/19/2020 Inactive warfarin 2 mg tablet RxNorm: 633743 TAKE 1 AND 1/2 TABL ETS ON SATURDAY, SATURDAY, SATURDAY, SATURDAY AND TAKE 2 TABLETS ON SATURDAY, SATURDAY AND Saturday12/12/2020 01/18/2021 Inactive escitalopram 20 mg tablet RxNorm: 444850 TAKE 1 TABLET AT BEDTIME 0 11/28/2020 11/28/2020 Inactive Namenda 10 mg tablet RxNorm: 799356 TAKE 1 TABLET TWICE DAILY (REPLACES NAMENDA XR) 10/17/2020 10/17/2020 Inactive melatonin 10 mg capsule RxNorm: 707470 1 Capsule(s) Oral QD No Stop Date Active tamsulosin 0.4 mg capsule RxNorm: 884223 TAKE 1 CAPSULE EVERY DAY 1 12/18/2020 Inactive warfarin 2 mg tablet RxNorm: 087919 TAKE 1 AND 1/2 TABL ETS ON SATURDAY, SATURDAY, SATURDAY, SATURDAY AND TAKE 2 TABLETS ON SATURDAY, SATURDAY AND Saturday07/12/2020 12/11/2020 Inactive warfarin 2 mg tablet RxNorm: 479595 TAKE 1 AND 1/2 TABL ETS ON SATURDAY, SATURDAY, SATURDAY, SATURDAY AND TAKE 2 TABLETS ON SATURDAY, SATURDAY AND Saturday06/27/2020 07/11/2020 Inactive Namenda 10 mg tablet RxNorm: 390092 TAKE 1 TABLET TWICE DAILY (REPLACES NAMENDA XR) 04/18/2020 10/16/2020 Inactive tamsulosin 0.4 mg capsule RxNorm: 308616 1 Capsule(s) Oral QD 02/1108/10/2020 Inactive Depakote ER 250 mg tablet,extended release RxNorm: 1822184 1 Tab let(s) Oral QPM 01/21/2020 04/20/2020 Inactive warfarin 2 mg tablet RxNorm: 621420 TAKE 1 AND 1/2 TABL ETS ON SATURDAY, SATURDAY, SATURDAY AND SATURDAY AND TAKE 2 TABLETS ON SATURDAY, SATURDAY AND Saturday12/14/2019 06/26/2020 Inactive escitalopram 20 mg tablet RxNorm: 896351 TAKE 1 TABLET AT BEDTIME 0 11/16/2019 11/27/2020 Inactive Namenda 10 mg tablet RxNorm: 094344 TAKE 1 TABLET TWICE DAILY (REPLACES NAMENDA XR) 10/08/2019 04/17/2020 Inactive tamsulosin 0.4 mg capsule RxNorm: 035319 1 Capsule(s) Oral QD 09/0202/11/2020 Inactive warfarin 2 mg tablet RxNorm: 754852 1.5 Tablet(s) PO on , , Sat, and Sun and 2 tablets on Sat, Sat, Sat07/13/2019 07/12/2019 Inactive Depakote ER 250 mg tablet,extended release RxNorm: 4491655 1 Tab let(s) PO BID 06/08/2019 09/05/2019 Inactive pravastatin 80 mg tablet RxNorm: 642886 TAKE 1 TABLET EVERY DAY 11/201809/01/2019 Inactive warfarin 2 mg tablet RxNorm: 983635 TAKE 1 AND 1/2 TABS ON SATURDAY,SATURDAY AND SATURDAY AND TAKE 2 TABS ON , , SAT AND SUN (NEED MD APPOINTMENT) 03/09/2019 07/13/2019 Inactive Namenda 10 mg tablet RxNorm: 091341 TAKE 1 TABLET TWICE DAILY (REPLACES NAMENDA XR) 02/09/2019 08/07/2019 Inactive doxepin 25 mg capsule RxNorm: 8744677 1 Capsule(s) PO QH S for sleep replaces 10mg dose 02/09/2019 04/21/2019 Inactive escitalopram 20 mg tablet RxNorm: 303865 1 Tablet(s) PO QHS 019 08/07/2019 Inactive tamsulosin 0.4 mg capsule RxNorm: 916498 1 Capsule(s) P O QPM for urinary frequency 01/07/2019 02/12/2020 Inactive divalproex 250 mg tablet,delayed release RxNorm: 2105836 1 Table t(s) PO QHS 01/07/2019 01/07/2019 Inactive doxepin 10 mg capsule RxNorm: 5009260 1-2 Capsule(s) PO QHS as n eeded for sleep 01/07/2019 02/08/2019 Inactive warfarin 2 mg tablet RxNorm: 165061 1 1/2 Tablet(s) PO MWF and 2 tablets on T Th Sat and Sun 12/29/2018 03/08/2019 Inactive metoprolol tartrate 50 mg tablet RxNorm: 563397 TAKE 1 TABLET T WICE DAILY 12/01/2018 06/30/2019 Inactive Namenda 10 mg tablet RxNorm: 200997 TAKE 1 TABLET TWICE DAILY (REPLACES NAMENDA XR) 09/22/2018 02/08/2019 Inactive warfarin 2 mg tablet RxNorm: 896011 1 1/2 Tablet(s) PO MWF and 2 tablets on T Th Sat and Sun 09/02/2018 09/01/2018 Inactive escitalopram 10 mg tablet RxNorm: 468832 1 Tablet(s) PO QHS 018 02/08/2019 Inactive pravastatin 80 mg tablet RxNorm: 844505 1 Tablet(s) PO QD 01/28/2018 10/24/2018 Inactive Namenda 10 mg tablet RxNorm: 772575 1 Tablet(s) PO BID 11/27/2017 Inactive escitalopram 10 mg tablet RxNorm: 833122 1 Tablet(s) PO QHS 018 06/09/2018 Inactive Namenda XR 28 mg capsule sprinkle,extended release RxNorm: 9 32842 TAKE ONE CAPSULE BY MOUTH ONCE DAILY 10/10/2017 11/26/2017 Inactive metoprolol tartrate 50 mg tablet RxNorm: 533488 Tablet( s) TAKE 1 TABLET TWICE DAILY 10/03/2017 09/27/2018 Inactive warfarin 2 mg tablet RxNorm: 342870 Tablet(s) TAKE 2 TA BLETS SATURDAY THROUGH SATURDAY AND 1 TABLET SATURDAY AND Saturday05/09/2017 09/02/2018 Inactive divalproex 250 mg tablet,delayed release RxNorm: 6116037 TAKE 1 TABLET TWICE DAILY 02/19/2017 01/06/2019 Inactive Namenda XR 28 mg capsule sprinkle,extended release RxNorm: 9 71122 TAKE 1 CAPSULE EVERY DAY 02/11/2017 10/09/2017 Inactive pravastatin 80 mg tablet RxNorm: 741652 1 Tablet(s) PO QD 01/21/2017 01/28/2018 Inactive Namenda XR 28 mg capsule sprinkle,extended release RxNorm: 9 72476 TAKE ONE CAPSULE BY MOUTH ONCE DAILY 09/24/2016 02/10/2017 Inactive metoprolol tartrate 50 mg tablet RxNorm: 016478 TAKE 1 TABLET T WICE DAILY 09/10/2016 10/03/2017 Inactive warfarin 2 mg tablet RxNorm: 536587 TAKE 2 TABLETS THROUGH SATURDAY AND 1 TABLET SATURDAY AND Saturday2016 05/09/2017 Inactive divalproex 250 mg tablet,delayed release RxNorm: 1745896 1 Table t(s) PO QHS 12/19/2015 12/12/2016 Inactive pravastatin 80 mg tablet RxNorm: 481390 1 Tablet(s) PO QD 12/19/2015 01/21/2017 Inactive Namenda XR 28 mg capsule sprinkle,extended release RxNorm: 9 37952 1 Capsule(s) PO QD 11/11/2015 09/23/2016 Inactive divalproex 250 mg tablet,delayed release RxNorm: 7694174 1 Table t(s) PO QHS 10/10/2015 12/19/2015 Inactive Namenda XR 28 mg capsule sprinkle,extended release RxNorm: 9 18749 1 Capsule(s) PO QD TAKE 1 CAPSULE EVERY DAY 11/09/2014 11/11/2015 Inactive Namenda XR 28 mg capsule sprinkle,ER 24hr RxNorm: 273338 1 PO QD TAKE ONE CAPSULE BY MOUTH ONCE DAILY 10/07/2014 11/09/2014 Inactive Namenda XR 28 mg capsule sprinkle,ER 24hr RxNorm: 455771 1 Caps ule(s) PO QD 11/10/2013 10/07/2014 Inactive metoprolol tartrate 50 mg tablet RxNorm: 991812 1 Tablet(s) PO BID 05/14/2013 05/08/2014 Inactive 1BID (REPLACES TOPROL) - [place] E ONE TABLET BY MOUTH TWICE DAILY (REPLACES TOPROL) Ativan 1 mg tablet RxNorm: 925216 1 Tablet(s) PO BID 05/01/201310/09 Inactive as needed for anxiety pravastatin 40 mg tablet RxNorm: 773802 1 Tablet(s) PO QD due for labs in late summer03/26/2013 11/10/2014 Inactive warfarin 2 mg tablet RxNorm: 025011 1 Tablet(s) PO Take 2 tablets by mouth Saturday through Saturday and 1 tablet on Saturday and Saturday10/07/2012 Inactive pravastatin 40 mg tablet RxNorm: 410086 1 Tablet(s) PO QD 08/13/2012 03/26/2013 Inactive metoprolol tartrate 50 mg tablet RxNorm: 106808 1 Tablet(s) PO BID 08/13/2012 05/14/2013 Inactive 1BID (REPLACES TOPROL) - [place] E ONE TABLET BY MOUTH TWICE DAILY (REPLACES TOPROL) warfarin 2 mg tablet RxNorm: 125746 1 Tablet(s) PO QD 08/13/201202/2012 Inactive warfarin 2 mg tablet RxNorm: 627437 Tablet(s) PO 11/07/2011 08/13/2012 Inactive 2QD - TAKE TWO TABLETS BY MOUTH EVERY DAY SATURDAY THROUGH SATURDAY AND 1 TABLET ON SATURDAY AND SATURDAY pravastatin 40 mg tablet RxNorm: 191346 1 Tablet(s) PO QD 10/15/2011 08/13/2012 Inactive Ativan 1 mg tablet RxNorm: 698697 1 Tablet(s) PO BID 10/01/201109/30 Active as needed for anxiety metoprolol tartrate 50 mg tablet RxNorm: 678480 1 Tablet(s) PO BID 08/27/2011 08/13/2012 Inactive 1BID (REPLACES TOPROL) - [place] E ONE TABLET BY MOUTH TWICE DAILY (REPLACES TOPROL) pravastatin 40 mg Tab RxNorm: 628873 1 Tablet(s) PO QD 07/10/201109/2011 Inactive Ativan 1 mg Tab RxNorm: 793739 1 Tablet(s) PO BID 07/02/2011 1 Active as needed for anxiety metoprolol tartrate 50 mg Tab RxNorm: 750845 1 Tablet(s ) PO BID 1BID (REPLACES TOPROL) - TAKE ONE TABLET BY MOUTH TWICE DAILY (REPLACES TOPROL) 03/12/2011 08/26/2011 Inactive Ativan 1 mg Tab RxNorm: 215173 1 Tablet(s) PO BID as needed for anxiety 02/26/2011 02/25/2011 Active warfarin 2 mg Tab RxNorm: 111538 Tablet(s) PO 2QD - T PHAM TWO TABLETS BY MOUTH EVERY DAY SATURDAY THROUGH SATURDAY AND 1 TABLET ON SATURDAY AND Saturday12/18/2010 11/07/2011 Inactive Ativan 1 mg Tab RxNorm: 692322 1 Tablet(s) PO BID PRN for anxiety 0 11/06/2010 01/06/2019 Inactive metoprolol tartrate 50 mg Tab RxNorm: 361861 1 Tablet(s ) PO BID 1BID (REPLACES TOPROL) - TAKE ONE TABLET BY MOUTH TWICE DAILY (REPLACES TOPROL) 09/11/2010 03/12/2011 Inactive Ativan 1 mg Tab RxNorm: 046275 1 Tablet(s) PO BID PRN for anxiety 1 11/06/2010 Inactive warfarin 2 mg Tab RxNorm: 151469 Tablet(s) PO 2QD - T PHAM TWO TABLETS BY MOUTH EVERY DAY SATURDAY THROUGH SATURDAY AND 1 TABLET ON SATURDAY AND Saturday07/24/2010 10/29/2010 Inactive metoprolol tartrate 50 mg Tab RxNorm: 266493 1 Tablet(s) PO QD 01/201009/11/2010 Inactive pravastatin 40 mg Tab RxNorm: 625323 1 Tablet(s) PO QD 06/06/201004/2011 Inactive Warfarin 2 mg Tab RxNorm: 566233 2 Tablet(s) PO QD 2 tablets by mouth Saturday through Saturday, and one tablet by mouth on Saturday and Saturday. 06/06/2010 07/23/2010 Inactive Ativan 1 mg Tab RxNorm: 225863 1 Tablet(s) PO QHS PRN for anxiety 0 06/06/2010 08/27/2010 Inactive Pravastatin 40 mg Tab RxNorm: 240846 1 Tablet(s) PO QD 04/14/201012/2009 Inactive Ativan 1 mg Tab RxNorm: 917097 1 Tablet(s) PO BID PRN for anxiety 0 02/23/2010 06/02/2010 Inactive Probiotic oral RxNorm: 6205 oral 04/07/2020 Active [place] 3 Natural Fish Oil Conc capsule RxNorm: 1 Capsule(s) PO QD 0 11/27/2017 Active turmeric-turmeric root extract oral RxNorm: 9747463 oral 11/27/19 18 Active magnesium oral RxNorm: 6574 oral 04/07/2020 Active Vitamin D3 5,000 unit tablet RxNorm: 363378 1 Tablet(s) PO QD 019 Active warfarin 2 mg tablet RxNorm: 314021 1 Tablet(s) PO QD 08/13/201207/2012 Inactive Ativan 1 mg Tab RxNorm: 638297 1 Tablet(s) PO BID as needed for anxiety 02/26/2011 02/25/2011 Inactive warfarin 2 mg Tab RxNorm: 918918 2 Tablet(s) PO QD saturday throsaturday06/06/2012 06/05/2012 Inactive Tricor 145 mg Tab RxNorm: 625062 1 Tablet(s) PO QD 12/06/2011 012 Inactive warfarin 4 mg tablet RxNorm: 373321 Tablet(s) PO 11/27/2017 11/26/2017 Inactive warfarin 2 mg Tab RxNorm: 485779 1 Tablet(s) PO QD on saturday and saturday06/06/2012 06/05/2012 Inactive warfarin 2 mg tablet RxNorm: 762128 1.5 Tablet(s) PO on , , Sat, and Sat and 2 tablets on Sat, Sat, Sat07/13/2019 07/12/2019 Inactive pravastatin 80 mg tablet RxNorm: 235341 1 Tablet(s) PO QD 12/19/2015 12/19/2015 Inactive metoprolol tartrate 50 mg tablet RxNorm: 760689 1 Tablet(s) PO QD 1 09/01/2019 Inactive Warfarin 2 mg Tab RxNorm: 476443 Tablet(s) PO 2 table ts by mouth Saturday through Saturday, and one tablet by mouth on Saturday and Saturday. 06/06/2010 08/0 12/2009 Inactive Namenda 10 mg Tab RxNorm: 693257 2 Tablet(s) PO QD 07/02/2013 013 Inactive warfarin 2 mg tablet RxNorm: 978087 1 1/2 Tablet(s) PO MWF and 2 tablets on T Th Sat and Sun 09/02/2018 09/01/2018 Inactive Ativan 1 mg Tab RxNorm: 981699 1 Tablet(s) PO BID PRN for anxiety 0 04/20/2010 04/19/2010 Inactive warfarin 2 mg Tab RxNorm: 173212 Tablet(s) PO take 2 tablets by mouth Sat-Sat and 1 tablet on Saturday and Saturday06/06/2012 06/05/2012 Inactive Depakote ER 250 mg tablet,extended release RxNorm: 0735239 1 Tab let(s) PO BID 11/27/2017 11/26/2017 Inactive warfarin 1 mg Tab RxNorm: 926747 1 Tablet(s) PO on Saturday and Saturday10/30/2010 [...] Code Result Date S ervice Location PT [id number] PT 24.4 Seconds 07/05/2021 Unknow n PT [id number] INR 2.2 07/05/2021 Unknown PT [id number] PT 25.2 Seconds 04/28/2021 Unknow n PT [id number] INR 2.3 04/28/2021 Unknown THYROID STIMULATING HORMONE 20500 TSH 2.271 uIU/mL 04/28/2021 Unknown COMPREHENSIVE METABOLIC 00470 AST 18 U/L 2020 Unknown COMPREHENSIVE METABOLIC 28107 ALT 9 U/L 2020 Unknown COMPREHENSIVE METABOLIC 24302 BUN 17 mg/dL 2020 Unknown COMPREHENSIVE METABOLIC 10240 ALBUMIN 3.8 g/dL 2020 Unknown COMPREHENSIVE METABOLIC 55656 CHLORIDE 108 mmol/L 04/28 Unknown COMPREHENSIVE METABOLIC 94145 Bili Total 0.7 mg/dL 04/28 Unknown COMPREHENSIVE METABOLIC 63590 ALK PHOS 76 U/L 2020 Unknown COMPREHENSIVE METABOLIC 41371 SODIUM 140 mmol/L 04/28 Unknown COMPREHENSIVE METABOLIC 48249 CREATININE 0.83 mg/dL 04/05 Unknown COMPREHENSIVE METABOLIC 49795 CALCIUM 9.5 mg/dL 2020 Unknown COMPREHENSIVE METABOLIC 07449 POTASSIUM 4.1 mmol/L 04/28 Unknown COMPREHENSIVE METABOLIC 50166 Total Protein 6.9 g/dL Unknown COMPREHENSIVE METABOLIC 63692 Glucose 106 mg/dL 2020 Unknown COMPREHENSIVE METABOLIC 47222 Bicarbonate 26 mmol/L 04/05 Unknown COMPREHENSIVE METABOLIC 14770 AGAP 6 mmol/L 2020 Unknown GFR CALC [id number] GFR Non Afr Amr >60 mL/min 04/28/2021 Un known GFR CALC 6584093 GFR Afr Amr >60 mL/min 04/28/2021 Unknow n COMPLETE BLOOD COUNT [id number] WBC 4.6 10e9/L 04/28/20 21 Unknown COMPLETE BLOOD COUNT 0745812 RBC 4.39 10e12/L 2020 Unknown COMPLETE BLOOD COUNT [id number] HEMOGLOBIN 14.2 g/dL 04/28/20 21 Unknown COMPLETE BLOOD COUNT [id number] HEMATOCRIT 41.1 % 04/28/20 21 Unknown COMPLETE BLOOD COUNT [id number] MCV 93.6 fL 1 Unknown COMPLETE BLOOD COUNT 2536395 MCH 32.3 pg 1 Unknown COMPLETE BLOOD COUNT 5846875 MCHC 34.5 g/dL 1 Unknown COMPLETE BLOOD COUNT [id number] PLATELET COUNT 198 10e9/L Unknown COMPLETE BLOOD COUNT 5306106 Mean Plt Volume 9.3 fL Unknown COMPLETE BLOOD COUNT 8956575 Neut Auto 54.8 % 1 Unknown COMPLETE BLOOD COUNT 5259976 Lymph Auto 33.7 % 04/28/20 21 Unknown COMPLETE BLOOD COUNT 1366294 [place] Auto 9.6 % 1 Unknown COMPLETE BLOOD COUNT 9980353 RDW 12.2 % 1 Unknown COMPLETE BLOOD COUNT 1174889 Eos Auto 1.7 % 1 Unknown COMPLETE BLOOD COUNT 2732730 Baso Auto 0.2 % 1 Unknown COMPLETE BLOOD COUNT 5641638 Neutrophil Abs 2.52 10e9/L Unknown COMPLETE BLOOD COUNT [id number] Lymphocyte Abs 1.55 10e9/L Unknown COMPLETE BLOOD COUNT 3487983 Monocyte Abs 0.44 10e9/L 04/05 Unknown COMPLETE BLOOD COUNT [id number] Eosinophil Abs 0.08 10e9/L Unknown COMPLETE BLOOD COUNT 5932907 RDW-SD 40.9 fL 1 Unknown COMPLETE BLOOD COUNT [id number] Basophil Abs 0.01 10e9/L 04/05 Unknown FREE T4 20100 T4 Free 0.81 ng/dL 04/28/2021 Unknown PT [id number] PT 19.8 Seconds 01/18/2021 Unknow n PT [id number] INR 1.6 01/18/2021 Unknown PT [id number] PT 18.7 Seconds 10/14/2020 Unknow n PT [id number] INR 1.5 10/14/2020 Unknown COMPREHENSIVE METABOLIC 40046 AST 17 U/L 2019 Unknown COMPREHENSIVE METABOLIC 29689 ALT 10 U/L 2019 Unknown COMPREHENSIVE METABOLIC 94692 BUN 19 mg/dL 2019 Unknown COMPREHENSIVE METABOLIC 31604 ALBUMIN 4.1 g/dL 2019 Unknown COMPREHENSIVE METABOLIC 12918 CHLORIDE 103 mmol/L 10/14 Unknown COMPREHENSIVE METABOLIC 54825 Bili Total 0.6 mg/dL 10/14 Unknown COMPREHENSIVE METABOLIC 89319 ALK PHOS 65 U/L 2019 Unknown COMPREHENSIVE METABOLIC 77965 SODIUM 141 mmol/L 10/14 Unknown COMPREHENSIVE METABOLIC 10128 CREATININE 0.77 mg/dL 10/04 Unknown COMPREHENSIVE METABOLIC 78772 CALCIUM 9.2 mg/dL 2019 Unknown COMPREHENSIVE METABOLIC 87201 POTASSIUM 4.2 mmol/L 10/14 Unknown COMPREHENSIVE METABOLIC 15846 Total Protein 6.7 g/dL Unknown COMPREHENSIVE METABOLIC 37227 Glucose 91 mg/dL 2019 Unknown COMPREHENSIVE METABOLIC 35432 Bicarbonate 28 mmol/L 10/04 Unknown COMPREHENSIVE METABOLIC 13829 AGAP 10 mmol/L 2019 Unknown FREE T4 81041 T4 Free 0.81 ng/dL 10/14/2020 Unknown HEMOGLOBIN A1C (GLYCOSYLATED) 1907524 Hgb A1c 51891-7 4.4 % 10/14/2020 Unknown HEMOGLOBIN A1C (GLYCOSYLATED) 5572490 Calc Mean Gluc 80 mg /dL 10/14/2020 Unknown COMPLETE BLOOD COUNT 8244029 WBC 5.4 10e9/L 10/14/20 20 Unknown COMPLETE BLOOD COUNT [id number] RBC 4.40 10e12/L 2019 Unknown COMPLETE BLOOD COUNT 5214741 HEMOGLOBIN 14.4 g/dL 10/14/20 Unknown COMPLETE BLOOD COUNT 3899202 HEMATOCRIT 42.4 % 10/14/20 20 Unknown COMPLETE BLOOD COUNT 6573616 MCV 96.4 fL 0 Unknown COMPLETE BLOOD COUNT 9347601 MCH 32.7 pg 0 Unknown COMPLETE BLOOD COUNT 8607959 MCHC 34.0 g/dL 0 Unknown COMPLETE BLOOD COUNT 7551982 PLATELET COUNT 216 10e9/L 09/2020 Unknown COMPLETE BLOOD COUNT 8293112 Mean Plt Volume 9.5 fL 09/2020 Unknown COMPLETE BLOOD COUNT 6309317 Neut Auto 57.6 % 0 Unknown COMPLETE BLOOD COUNT 8991462 Lymph Auto 31.5 % 10/14/20 20 Unknown COMPLETE BLOOD COUNT 4085047 [place] Auto 9.0 % 0 Unknown COMPLETE BLOOD COUNT [id number] RDW 12.4 % 0 Unknown COMPLETE BLOOD COUNT 0881802 Eos Auto 1.7 % 0 Unknown COMPLETE BLOOD COUNT 5485526 Baso Auto 0.2 % 0 Unknown COMPLETE BLOOD COUNT 5242780 Neutrophil Abs 3.11 10e9/L Unknown COMPLETE BLOOD COUNT 5064836 Lymphocyte Abs 1.70 10e9/L Unknown COMPLETE BLOOD COUNT 2733586 Monocyte Abs 0.49 10e9/L 10/04 Unknown COMPLETE BLOOD COUNT 7580944 Eosinophil Abs 0.09 10e9/L Unknown COMPLETE BLOOD COUNT [id number] Basophil Abs 0.01 10e9/L 10/04 Unknown COMPLETE BLOOD COUNT 6132171 RDW-SD 42.4 fL 0 Unknown THYROID STIMULATING HORMONE 24351 TSH 2.071 uIU/mL 10/14/2020 Unknown LIPID GROUP 78954 Cholesterol 217 mg/dL 10/14/2020 Unkno wn LIPID GROUP 39268 Triglyceride 108 mg/dL 10/14/2020 Unkn own LIPID GROUP 86422 HDL CHOLESTEROL 46 mg/dL 10/14/2020 U nknown LIPID GROUP 96874 Chol/HDL Ratio 4.72 ratio 10/14/2020 U nknown LIPID GROUP 81628 NON-HDL Chol 171 mg/dL 10/14/2020 Unkn own LIPID GROUP 73102 LDL Cholesterol 149 mg/dL 10/14/2020 U nknown GFR CALC 3290677 GFR Non Afr Amr >60 mL/min 10/14/2020 Un known GFR CALC 4166681 GFR Afr Amr >60 mL/min 10/14/2020 Unknow n COMPLETE BLOOD COUNT 6132164 WBC 7.6 10e9/L 04/06/20 20 Unknown COMPLETE BLOOD COUNT 9890555 RBC 3.90 10e12/L 2019 Unknown COMPLETE BLOOD COUNT 6943652 HEMOGLOBIN 12.0 g/dL 04/06/20 20 Unknown COMPLETE BLOOD COUNT 1084837 HEMATOCRIT 36.9 % 04/06/20 20 Unknown COMPLETE BLOOD COUNT 3621624 MCV 94.6 fL 0 Unknown COMPLETE BLOOD COUNT 1825882 MCH 30.8 pg 0 Unknown COMPLETE BLOOD COUNT 2838048 MCHC 32.5 g/dL 0 Unknown COMPLETE BLOOD COUNT 3726758 PLATELET COUNT 257 10e9/L 01/2020 Unknown COMPLETE BLOOD COUNT 4991424 Mean Plt Volume 8.6 fL 01/2020 Unknown COMPLETE BLOOD COUNT 8948778 Neut Auto 68.7 % 0 Unknown COMPLETE BLOOD COUNT 4699916 Lymph Auto 22.0 % 04/06/20 20 Unknown COMPLETE BLOOD COUNT 0512159 [place] Auto 8.3 % 0 Unknown COMPLETE BLOOD COUNT 6507507 Eos Auto 0.7 % 0 Unknown COMPLETE BLOOD COUNT 7521922 RDW 12.7 % 0 Unknown COMPLETE BLOOD COUNT 2629647 Baso Auto 0.3 % 0 Unknown COMPLETE BLOOD COUNT 1280214 Neutrophil Abs 5.22 10e9/L Unknown COMPLETE BLOOD COUNT 8772926 Lymphocyte Abs 1.67 10e9/L Unknown COMPLETE BLOOD COUNT 4192899 Monocyte Abs 0.63 10e9/L 01/2020 Unknown COMPLETE BLOOD COUNT 1880556 Eosinophil Abs 0.05 10e9/L Unknown COMPLETE BLOOD COUNT 5131193 RDW-SD 42.6 fL 0 Unknown COMPLETE BLOOD COUNT 8414039 Basophil Abs 0.02 10e9/L 01/2020 Unknown PT [id number] PT 19.3 Seconds 04/06/2020 Unknow n PT [id number] INR 1.6 04/06/2020 Unknown COMPREHENSIVE METABOLIC 29798 AST 12 U/L 2019 Unknown COMPREHENSIVE METABOLIC 24377 ALT 7 U/L 2019 Unknown COMPREHENSIVE METABOLIC 23467 BUN 19 mg/dL 2019 Unknown COMPREHENSIVE METABOLIC 26446 ALBUMIN 3.8 g/dL 2019 Unknown COMPREHENSIVE METABOLIC 35991 CHLORIDE 103 mmol/L 04/06 Unknown COMPREHENSIVE METABOLIC 52021 Bili Total 0.4 mg/dL 04/06 Unknown COMPREHENSIVE METABOLIC 73824 ALK PHOS 78 U/L 2019 Unknown COMPREHENSIVE METABOLIC 48189 SODIUM 141 mmol/L 04/06 Unknown COMPREHENSIVE METABOLIC 63684 CREATININE 0.90 mg/dL 01/2020 Unknown COMPREHENSIVE METABOLIC 84056 CALCIUM 9.0 mg/dL 2019 Unknown COMPREHENSIVE METABOLIC 79449 POTASSIUM 3.8 mmol/L 04/06 Unknown COMPREHENSIVE METABOLIC 66883 Total Protein 6.1 g/dL Unknown COMPREHENSIVE METABOLIC 90810 Glucose 125 mg/dL 2019 Unknown COMPREHENSIVE METABOLIC 41414 Bicarbonate 27 mmol/L 01/2020 Unknown COMPREHENSIVE METABOLIC 32976 AGAP 11 mmol/L 2019 Unknown GFR CALC 5262835 GFR Non Afr Amr >60 mL/min 04/06/2020 Un known GFR CALC 3178120 GFR Afr Amr >60 mL/min 04/06/2020 Unknow n PT 6104412 PT 25.2 Seconds 09/02/2019 Unknow n PT [id number] INR 2.2 09/02/2019 Unknown PT 1213050 PT 26.5 Seconds 04/22/2019 Unknow n PT [id number] INR 2.3 04/22/2019 Unknown FERRITIN 34308 FERRITIN 240.3 ng/mL 04/22/2019 Unknown COMPLETE BLOOD COUNT 2211208 WBC 7.7 10e9/L 04/22/20 19 Unknown COMPLETE BLOOD COUNT 6706821 RBC 4.19 10e12/L 2018 Unknown COMPLETE BLOOD COUNT 4926276 HEMOGLOBIN 13.5 g/dL 04/22/20 19 Unknown COMPLETE BLOOD COUNT 0335169 HEMATOCRIT 39.6 % 04/22/20 19 Unknown COMPLETE BLOOD COUNT 8703229 MCV 94.5 fL 9 Unknown COMPLETE BLOOD COUNT 5485918 MCH 32.2 pg 9 Unknown COMPLETE BLOOD COUNT 4590121 MCHC 34.1 g/dL 9 Unknown COMPLETE BLOOD COUNT 7748720 PLATELET COUNT 235 10e9/L Unknown COMPLETE BLOOD COUNT 5852363 Mean Plt Volume 9.8 fL Unknown COMPLETE BLOOD COUNT 2208721 Neut Auto 68.5 % 9 Unknown COMPLETE BLOOD COUNT 5145440 Lymph Auto 22.4 % 04/22/20 19 Unknown COMPLETE BLOOD COUNT 9133940 [place] Auto 8.3 % 9 Unknown COMPLETE BLOOD COUNT 2418627 Eos Auto 0.5 % 9 Unknown COMPLETE BLOOD COUNT 0952853 RDW 12.4 % 9 Unknown COMPLETE BLOOD COUNT 9560871 Baso Auto 0.3 % 9 Unknown COMPLETE BLOOD COUNT [id number] Neutrophil Abs 5.27 10e9/L Unknown COMPLETE BLOOD COUNT [id number] Lymphocyte Abs 1.72 10e9/L Unknown COMPLETE BLOOD COUNT [id number] Monocyte Abs 0.64 10e9/L 04/04 Unknown COMPLETE BLOOD COUNT [id number] Eosinophil Abs 0.04 10e9/L Unknown COMPLETE BLOOD COUNT [id number] RDW-SD 41.6 fL 9 Unknown COMPLETE BLOOD COUNT [id number] Basophil Abs 0.02 10e9/L 04/04 Unknown IRON 16627 Iron 95 ug/dL 04/22/2019 Unknown GFR CALC [id number] GFR Non Afr Amr >60 mL/min 01/05/2019 Un known GFR CALC [id number] GFR Afr Amr >60 mL/min 01/05/2019 Unknow n COMPREHENSIVE METABOLIC 71532 AST 15 U/L 2018 Unknown COMPREHENSIVE METABOLIC 65736 ALT 11 U/L 2018 Unknown COMPREHENSIVE METABOLIC 51261 BUN 16 mg/dL 2018 Unknown COMPREHENSIVE METABOLIC 70947 ALBUMIN 3.9 g/dL 2018 Unknown COMPREHENSIVE METABOLIC 10714 CHLORIDE 106 mmol/L 01/05 Unknown COMPREHENSIVE METABOLIC 62250 Bili Total 0.7 mg/dL 01/05 Unknown COMPREHENSIVE METABOLIC 92494 ALK PHOS 50 U/L 2018 Unknown COMPREHENSIVE METABOLIC 65572 SODIUM 138 mmol/L 01/05 Unknown COMPREHENSIVE METABOLIC 46344 CREATININE 0.74 mg/dL 02/2019 Unknown COMPREHENSIVE METABOLIC 74707 CALCIUM 9.0 mg/dL 2018 Unknown COMPREHENSIVE METABOLIC 40784 POTASSIUM 4.3 mmol/L 01/05 Unknown COMPREHENSIVE METABOLIC 02259 Total Protein 6.4 g/dL Unknown COMPREHENSIVE METABOLIC 21567 Glucose 114 mg/dL 2018 Unknown COMPREHENSIVE METABOLIC 96777 Bicarbonate 26 mmol/L 02/2019 Unknown COMPREHENSIVE METABOLIC 75921 AGAP 6 mmol/L 2018 Unknown COMPLETE BLOOD COUNT [id number] WBC 5.5 10e9/L 01/06/20 19 Unknown COMPLETE BLOOD COUNT [id number] RBC 4.27 10e12/L 2018 Unknown COMPLETE BLOOD COUNT [id number] HEMOGLOBIN 14.0 g/dL 01/06/20 19 Unknown COMPLETE BLOOD COUNT [id number] HEMATOCRIT 40.6 % 01/06/20 19 Unknown COMPLETE BLOOD COUNT [id number] MCV 95.1 fL 9 Unknown COMPLETE BLOOD COUNT [id number] MCH 32.8 pg 9 Unknown COMPLETE BLOOD COUNT [id number] MCHC 34.5 g/dL 9 Unknown COMPLETE BLOOD COUNT [id number] PLATELET COUNT 211 10e9/L 02/2019 Unknown COMPLETE BLOOD COUNT [id number] Mean Plt Volume 9.8 fL 02/2019 Unknown COMPLETE BLOOD COUNT [id number] Neut Auto 64.7 % 9 Unknown COMPLETE BLOOD COUNT [id number] Lymph Auto 24.3 % 01/06/20 19 Unknown COMPLETE BLOOD COUNT [id number] [place] Auto 9.7 % 9 Unknown COMPLETE BLOOD COUNT [id number] Eos Auto 1.1 % 9 Unknown COMPLETE BLOOD COUNT [id number] RDW 12.2 % 9 Unknown COMPLETE BLOOD COUNT [id number] Baso Auto 0.2 % 9 Unknown COMPLETE BLOOD COUNT [id number] Neutrophil Abs 3.56 10e9/L Unknown COMPLETE BLOOD COUNT [id number] Lymphocyte Abs 1.34 10e9/L Unknown COMPLETE BLOOD COUNT [id number] Monocyte Abs 0.53 10e9/L 02/2019 Unknown COMPLETE BLOOD COUNT [id number] Eosinophil Abs 0.06 10e9/L Unknown COMPLETE BLOOD COUNT [id number] RDW-SD 41.3 fL 9 Unknown COMPLETE BLOOD COUNT [id number] Basophil Abs 0.01 10e9/L 02/2019 Unknown LIPID GROUP 02754 Cholesterol 145 mg/dL 01/05/2019 Unkno wn LIP[facility] GROUP 44871 Triglyceride 153 mg/dL 01/05/2019 Unkn own L[facility] GROUP 47149 HDL CHOLESTEROL 39 mg/dL 01/05/2019 U nknown [facility] GROUP 23989 Chol/HDL Ratio 3.72 ratio 01/05/2019 U nknown L[facility] GROUP 13716 NON-HDL Chol 106 mg/dL 01/05/2019 Unkn own [facility] GROUP 08925 LDL Cholesterol 75 mg/dL 01/05/2019 U nknown PT [id number] PT 30.5 Seconds 12/15/2018 Unknow n PT [id number] INR 2.9 12/15/2018 Unknown PT [id number] PT 17.2 Seconds 09/08/2018 Unknow n PT [id number] INR 1.4 09/08/2018 Unknown LIP[facility] GROUP 82953 Cholesterol 190 mg/dL 07/08/2018 Unkno wn [facility] 57242 Triglyceride 402 mg/dL 07/08/2018 Unkn own [facility] 80181 HDL CHOLESTEROL 36 mg/dL 07/08/2018 U nknown [facility] 73081 Chol/HDL Ratio 5.28 ratio 07/08/2018 U nknown [facility] 30757 NON-HDL Chol 154 mg/dL 07/08/2018 Unkn own [facility] 77288 LDL Cholesterol N/A Trig >400 018 Unknown GFR CALC [id number] GFR Non Afr Amr >60 mL/min 07/08/2018 Un known GFR CALC 0701142 GFR Afr Amr >60 mL/min 07/08/2018 Unknow n COMPLETE BLOOD COUNT [id number] WBC 5.0 10e9/L 07/08/20 18 Unknown COMPLETE BLOOD COUNT [id number] RBC 4.08 10e12/L 2017 Unknown COMPLETE BLOOD COUNT [id number] HEMOGLOBIN 13.3 g/dL 07/08/20 18 Unknown COMPLETE BLOOD COUNT [id number] HEMATOCRIT 38.6 % 07/08/20 18 Unknown COMPLETE BLOOD COUNT [id number] MCV 94.6 fL 8 Unknown COMPLETE BLOOD COUNT [id number] MCH 32.6 pg 8 Unknown COMPLETE BLOOD COUNT [id number] MCHC 34.5 g/dL 8 Unknown COMPLETE BLOOD COUNT [id number] PLATELET COUNT 205 10e9/L 02/2018 Unknown COMPLETE BLOOD COUNT [id number] Mean Plt Volume 9.8 fL 02/2018 Unknown COMPLETE BLOOD COUNT [id number] Neut Auto 52.8 % 8 Unknown COMPLETE BLOOD COUNT [id number] Lymph Auto 33.2 % 07/08/20 18 Unknown COMPLETE BLOOD COUNT [id number] [place] Auto 11.6 % 8 Unknown COMPLETE BLOOD COUNT 8989063 RDW 12.5 % 8 Unknown COMPLETE BLOOD COUNT 0155447 Eos Auto 2.0 % 8 Unknown COMPLETE BLOOD COUNT 5807770 Baso Auto 0.4 % 8 Unknown COMPLETE BLOOD COUNT [id number] Neutrophil Abs 2.64 10e9/L Unknown COMPLETE BLOOD COUNT [id number] Lymphocyte Abs 1.66 10e9/L Unknown COMPLETE BLOOD COUNT [id number] Monocyte Abs 0.58 10e9/L 02/2018 Unknown COMPLETE BLOOD COUNT [id number] Eosinophil Abs 0.10 10e9/L Unknown COMPLETE BLOOD COUNT [id number] Basophil Abs 0.02 10e9/L 02/2018 Unknown COMPLETE BLOOD COUNT [id number] RDW-SD 41.8 fL 8 Unknown PT [id number] PT 32.9 Seconds 07/08/2018 Unknow n PT [id number] INR 3.2 07/08/2018 Unknown PT [id number] PT TNP:Duplicate Order 8 Unknown PT [id number] INR TNP:Duplicate Order 8 Unknown COMPREHENSIVE METABOLIC 02577 AST TNP:Duplicate Or grace 07/08/2018 Unknown COMPREHENSIVE METABOLIC 38750 ALT TNP:Duplicate Or grace 07/08/2018 Unknown COMPREHENSIVE METABOLIC 54331 BUN TNP:Duplicate Or grace 07/08/2018 Unknown COMPREHENSIVE METABOLIC 61706 ALBUMIN TNP:Duplicate Or grace 07/08/2018 Unknown COMPREHENSIVE METABOLIC 87591 CHLORIDE TNP:Duplicate Or grace 07/08/2018 Unknown COMPREHENSIVE METABOLIC 90531 Bili Total TNP:Duplicate O rder 07/08/2018 Unknown COMPREHENSIVE METABOLIC 22629 ALK PHOS TNP:Duplicate Or grace 07/08/2018 Unknown COMPREHENSIVE METABOLIC 22257 SODIUM TNP:Duplicate Or grace 07/08/2018 Unknown COMPREHENSIVE METABOLIC 26913 CREATININE TNP:Duplicate O rder 07/08/2018 Unknown COMPREHENSIVE METABOLIC 80846 CALCIUM TNP:Duplicate Or grace 07/08/2018 Unknown COMPREHENSIVE METABOLIC 18612 POTASSIUM TNP:Duplicate Or grace 07/08/2018 Unknown COMPREHENSIVE METABOLIC 56518 Total Protein TNP:Duplicat e Order 07/08/2018 Unknown COMPREHENSIVE METABOLIC 08663 Glucose TNP:Duplicate Or grace 07/08/2018 Unknown COMPREHENSIVE METABOLIC 82380 Bicarbonate TNP:Duplicate Order 07/08/2018 Unknown COMPREHENSIVE METABOLIC 04834 AGAP TNP:Duplicate Or grace 07/08/2018 Unknown COMPREHENSIVE METABOLIC 70797 AST 17 U/L 2017 Unknown COMPREHENSIVE METABOLIC 03899 ALT 12 U/L 2017 Unknown COMPREHENSIVE METABOLIC 79644 BUN 20 mg/dL 2017 Unknown COMPREHENSIVE METABOLIC 20495 ALBUMIN 4.0 g/dL 2017 Unknown COMPREHENSIVE METABOLIC 18838 CHLORIDE 107 mmol/L 07/08 Unknown COMPREHENSIVE METABOLIC 74810 Bili Total 0.3 mg/dL 07/08 Unknown COMPREHENSIVE METABOLIC 99870 ALK PHOS 58 U/L 2017 Unknown COMPREHENSIVE METABOLIC 65163 SODIUM 139 mmol/L 07/08 Unknown COMPREHENSIVE METABOLIC 07926 CREATININE 0.72 mg/dL 02/2018 Unknown COMPREHENSIVE METABOLIC 15417 CALCIUM 7.8 mg/dL 2017 Unknown COMPREHENSIVE METABOLIC 45928 POTASSIUM 4.1 mmol/L 07/08 Unknown COMPREHENSIVE METABOLIC 22719 Total Protein 6.2 g/dL Unknown COMPREHENSIVE METABOLIC 23866 Glucose 107 mg/dL 2017 Unknown COMPREHENSIVE METABOLIC 50582 Bicarbonate 22 mmol/L 02/2018 Unknown COMPREHENSIVE METABOLIC 56941 AGAP 10 mmol/L 2017 Unknown GFR CALC 0593179 GFR Afr Amr >60 mL/min 11/28/2017 Unknow n GFR CALC 5347910 GFR Non Afr Amr >60 mL/min 11/28/2017 Un known THYROID STIMULATING HORMONE 06983 TSH 4.029 uIU/mL 11/28/2017 Unknown LIP[facility] GROUP 28968 Cholesterol 181 mg/dL 11/28/2017 Unkno wn L[facility] GROUP 25570 Triglyceride 193 mg/dL 11/28/2017 Unkn own L[facility] GROUP 65826 HDL CHOLESTEROL 36 11/28/2017 U nknown LIP[facility] GROUP 68723 Chol/HDL Ratio 5.03 ratio 11/28/2017 U nknown LIP[facility] GROUP 35824 NON-HDL Chol 145 mg/dL 11/28/2017 Unkn own [facility] GROUP 64391 LDL Cholesterol 106 mg/dL 11/28/2017 U nknown PT 0935828 PT 22.2 Seconds 11/28/2017 Unknow n PT 1290566 INR 2.0 11/28/2017 Unknown COMPREHENSIVE METABOLIC 25462 AST 19 U/L 2017 Unknown COMPREHENSIVE METABOLIC 31429 ALT 16 U/L 2017 Unknown COMPREHENSIVE METABOLIC 81365 BUN 22 mg/dL 2017 Unknown COMPREHENSIVE METABOLIC 21844 ALBUMIN 4.1 g/dL 2017 Unknown COMPREHENSIVE METABOLIC 90343 CHLORIDE 108 mmol/L 11/28 Unknown COMPREHENSIVE METABOLIC 60830 Bili Total 0.5 mg/dL 11/28 Unknown COMPREHENSIVE METABOLIC 92292 ALK PHOS 53 U/L 2017 Unknown COMPREHENSIVE METABOLIC 10682 SODIUM 141 mmol/L 11/28 Unknown COMPREHENSIVE METABOLIC 46247 CREATININE 0.83 mg/dL 11/05 Unknown COMPREHENSIVE METABOLIC 93502 CALCIUM 9.1 mg/dL 2017 Unknown COMPREHENSIVE METABOLIC 18304 POTASSIUM 4.6 mmol/L 11/28 Unknown COMPREHENSIVE METABOLIC 71704 Total Protein 6.5 g/dL Unknown COMPREHENSIVE METABOLIC 52180 Glucose 106 mg/dL 2017 Unknown COMPREHENSIVE METABOLIC 96744 Bicarbonate 26 mmol/L 11/05 Unknown COMPREHENSIVE METABOLIC 16367 AGAP 7 mmol/L 2017 Unknown COMPLETE BLOOD COUNT 0651278 WBC 5.1 10e9/L 11/28/19 18 Unknown COMPLETE BLOOD COUNT [id number] RBC 4.22 10e12/L 2017 Unknown COMPLETE BLOOD COUNT 1698917 HEMOGLOBIN 13.5 g/dL 11/28/19 18 Unknown COMPLETE BLOOD COUNT [id number] HEMATOCRIT 39.1 % 11/28/19 18 Unknown COMPLETE BLOOD COUNT 4793616 MCV 92.7 fL 8 Unknown COMPLETE BLOOD COUNT 5568905 MCH 32.0 pg 8 Unknown COMPLETE BLOOD COUNT 0273795 MCHC 34.5 g/dL 8 Unknown COMPLETE BLOOD COUNT 8717946 PLATELET COUNT 226 10e9/L Unknown COMPLETE BLOOD COUNT 7642093 Mean Plt Volume 9.6 fL Unknown COMPLETE BLOOD COUNT 7113425 Neut Auto 49.5 % 8 Unknown COMPLETE BLOOD COUNT 2727121 Lymph Auto 35.3 % 11/28/19 18 Unknown COMPLETE BLOOD COUNT 3185783 [place] Auto 12.4 % 8 Unknown COMPLETE BLOOD COUNT 8398300 RDW 12.4 % 8 Unknown COMPLETE BLOOD COUNT 5352212 Eos Auto 2.2 % 8 Unknown COMPLETE BLOOD COUNT 8108355 Baso Auto 0.6 % 8 Unknown COMPLETE BLOOD COUNT 8506717 Neutrophil Abs 2.52 10e9/L Unknown COMPLETE BLOOD COUNT 5012261 Lymphocyte Abs 1.80 10e9/L Unknown COMPLETE BLOOD COUNT [id number] Monocyte Abs 0.63 10e9/L 11/05 Unknown COMPLETE BLOOD COUNT [id number] Eosinophil Abs 0.11 10e9/L Unknown COMPLETE BLOOD COUNT [id number] RDW-SD 41.2 fL 8 Unknown COMPLETE BLOOD COUNT [id number] Basophil Abs 0.03 10e9/L 11/05 Unknown Procedures Procedure Codes Date SARSCOV & INF VIR A&B AG [place] CPT-4: 32656 10/04/2021 FLU VACC PRSV FREE INC ANTIG 65 AND OLDER CPT-4: 79748 08/18/2021 FLU VACC PRSV FREE INC ANTIG 65 AND OLDER CPT-4: 35072 08/18/2021 ADMIN INFLUENZA VIRUS VAC CPT-4: G0008 08/18/2021 ROUTINE VENIPUNCTURE CPT-4: 40691 07/05/2021 PROTHROMBIN TIME CPT-4: 67300 07/05/2021 PPPS, subseq visit CPT-4: G0439 10/12/2020 ROUTINE VENIPUNCTURE CPT-4: 01074 04/06/2020 COMPREHEN METABOLIC PANEL CPT-4: 40598 04/06/2020 COMPLETE CBC W/AUTO DIFF WBC CPT-4: 01197 04/06/2020 PROTHROMBIN TIME CPT-4: 58303 04/06/2020 PPPS, subseq visit CPT-4: G0439 09/02/2019 ROUTINE VENIPUNCTURE CPT-4: 03599 09/02/2019 PROTHROMBIN TIME CPT-4: 81879 09/02/2019 FLU VACC PRSV FREE INC ANTIG 65 AND OLDER CPT-4: 08537 08/20/2018 PNEUMOCOCCAL VACC 23 BRIDGET IM CPT-4: 21398 08/20/2018 ADMIN INFLUENZA VIRUS VAC CPT-4: G0008 08/20/2018 ADMIN PNEUMOCOCCAL VACCINE CPT-4: G0009 08/20/2018 PPPS, subseq visit CPT-4: G0439 11/27/2017 FLU VACC PRSV FREE INC ANTIG 65 AND OLDER CPT-4: 18370 08/14/2017 PNEUMOCOCCAL VACC 13 BRIDGET IM CPT-4: 41737 08/14/2017 ADMIN INFLUENZA VIRUS VAC CPT-4: G0008 08/14/2017 ADMIN PNEUMOCOCCAL VACCINE CPT-4: G0009 08/14/2017 FLU VACC PRSV FREE INC ANTIG 65 AND OLDER CPT-4: 42249 10/03/2016 ADMIN INFLUENZA VIRUS VAC CPT-4: G0008 10/03/2016 PPPS, subseq visit CPT-4: G0439 10/10/2015 FLUZONE, 5ML (Medicare) CPT-4: Q2038 09/01/2014 ADMIN INFLUENZA VIRUS VAC CPT-4: G0008 09/01/2014 Vital Signs Date Vital 07/05/2021 Blood Pressure 1: 122/80 Code: 8480-6 Heart Rate 1: 92 bpm Respiratory Rate: 20 bpm SpO2: 96% Temperature: 36.8 (C) / 98.2 (F) We ight: 207 lbs Code: 45306-9 04/26/2021 Blood Pressure 1: 126/82 Code: 8480-6 Heart Rate 1: 104 bpm Respiratory Rate: 20 bpm SpO2: 96% Temperature: 36.7 (C) / 98.1 (F) We ight: 212 lbs Code: 00149-4 10/12/2020 Blood Pressure 1: 104/68 Code: 8480-6 BMI: 31.6 Code: 14532-8 Heart Rate 1: 96 bpm Height: 5'7" Code: 8302-2 Respiratory Rate: 20 bpm SpO2: 95% Temperature: 36.9 (C) / 98.5 (F) Weight: 202 lbs Code: 91404-8 07/13/2020 Blood Pressure 1: 128/72 Code: 8480-6 Heart Rate 1: 76 bpm Respiratory Rate: 18 bpm SpO2: 97% Temperature: 36.3 (C) / 97.3 (F) We ight: 190 lbs Code: 15632-3 04/06/2020 Blood Pressure 1: 106/68 Code: 8480-6 BMI: 29.1 Code: 59821-5 Heart Rate 1: 96 bpm Height: 5'7" Code: 8302-2 Respiratory Rate: 20 bpm SpO2: 96% Temperature: 36.8 (C) / 98.2 (F) Weight: 186 lbs Code: 05910-7 09/02/2019 Blood Pressure 1: 94/50 Code: 8480-6 BMI: 29.8 C ode: 83666-0 Heart Rate 1: 68 bpm Height: 5'7" Code: 8302-2 Respiratory Rate: 20 bpm SpO2: 96% Temperature: 36.6 (C) / 97.9 (F) Weight: 190 lbs Code: 66036-3 07/01/2019 Blood Pressure 1: 112/60 Code: 8480-6 Heart Rate 1: 88 bpm Respiratory Rate: 20 bpm SpO2: 94% Temperature: 36.8 (C) / 98.2 (F) We ight: 201 lbs Code: 75801-3 05/27/2019 Blood Pressure 1: 104/50 Code: 8480-6 Heart Rate 1: 62 bpm SpO2: 95% Temperature: 36.3 (C) / 97.4 (F) Weight: 204 lbs Code: 38297-2 04/22/2019 Blood Pressure 1: 112/72 Code: 8480-6 Heart Rate 1: 64 bpm Respiratory Rate: 20 bpm SpO2: 95% Temperature: 36.8 (C) / 98.2 (F) We ight: 207 lbs Code: 11939-8 02/09/2019 Blood Pressure 1: 104/60 Code: 8480-6 Heart Rate 1: 72 bpm Respiratory Rate: 20 bpm SpO2: 95% Temperature: 37.1 (C) / 98.8 (F) We ight: 216 lbs Code: 54116-5 01/07/2019 Blood Pressure 1: 122/74 Code: 8480-6 Heart Rate 1: 96 bpm Respiratory Rate: 20 bpm SpO2: 96% Temperature: 36.7 (C) / 98.1 (F) We ight: 219 lbs Code: 13805-4 07/09/2018 Blood Pressure 1: 118/65 Code: 8480-6 Heart Rate 1: 62 bpm SpO2: 94% Temperature: 36.2 (C) / 97.1 (F) Weight: 237 lbs Code: 66764-4 11/27/2017 Blood Pressure 1: 124/70 Code: 8480-6 BMI: 35.2 Code: 39477-1 Heart Rate 1: 64 bpm Height: 5'8" Code: 8302-2 Respiratory Rate: 20 bpm SpO2: 94% Temperature: 36.9 (C) / 98.5 (F) Weight: 235 lbs Code: 62097-6 10/10/2015 Blood Pressure 1: 126/78 Code: 8480-6 BMI: 36.0 Code: 00419-6 Heart Rate 1: 72 bpm Height: 5'8" Code: 8302-2 Respiratory Rate: 20 bpm Temperatu re: 36.9 (C) / 98.4 (F) Weight: 240 lbs Code: 98748-0 09/01/2014 Blood Pressure 1: 114/70 Code: 8480-6 BMI: 35.4 Code: 91908-8 Heart Rate 1: 76 bpm Height: 5'8" Code: 8302-2 Respiratory Rate: 20 bpm Temperatu re: 36.7 (C) / 98.1 (F) Weight: 236 lbs Code: 13799-2 07/02/2013 Blood Pressure 1: 124/90 Code: 8480-6 BMI: 33.7 Code: 33699-6 Heart Rate 1: 76 bpm Height: 5'8" Code: 8302-2 Respiratory Rate: 20 bpm Temperatu re: 36.6 (C) / 97.8 (F) Weight: 225 lbs Code: 81555-7 06/25/2012 Blood Pressure 1: 144/100 Code: 8480-6 BMI: 34.5 Code: 02330-0 Heart Rate 1: 76 bpm Height: 5'8" Code: 8302-2 Respiratory Rate: 20 bpm Temperatu re: 36.6 (C) / 97.9 (F) Weight: 230 lbs Code: 95674-9 05/15/2012 Blood Pressure 1: 112/70 Code: 8480-6 BMI: 34.6 Code: 12245-2 Heart Rate 1: 76 bpm Height: 5'8" Code: 8302-2 Respiratory Rate: 20 bpm Temperatu re: 37.0 (C) / 98.6 (F) Weight: 231 lbs Code: 73937-2 12/06/2011 Blood Pressure 1: 142/90 Code: 8480-6 BMI: 35.4 Code: 53445-0 Heart Rate 1: 72 bpm Height: 5'8" Code: 8302-2 Respiratory Rate: 20 bpm Temperatu re: 36.9 (C) / 98.4 (F) Weight: 236 lbs Code: 40029-5 10/30/2010 Blood Pressure 1: 114/78 Code: 8480-6 Heart Rate 1: 76 bpm Temperature: 36.3 (C) / 97.4 (F) Weight: 228 lbs Code: 12937-9 Functional Status No Functional Status data Reason [...] ativan; Encounters Encounter Performer Location Codes Date ([id number]) NURSE/OUTPATIENT VISIT EST Diagnosis: Cough[ICD10: R05.9] Diagnosis: Exposure to COVID-19 virus[ICD10: Z20.822] Arlyn THOMPSONNDDEMETRI [facility] CPT-4: 81001 10/04/2021 ([id number]) NURSE/OUTPATIENT VISIT EST Diagnosis: FLU VACCINE[ICD10: Z23] Arlyn THOMPSONND DEMETRI [facility] CPT-4: 47927 08/18/2021 ([id number]) OFFICE/OUTPATIENT VISIT EST Diagnosis: Parkinson disease[ICD10: G20] 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] Arlyn THOMPSONNDER DO [facility] CPT-4: 51623 07/05/2021 ([id number]) OFFICE/OUTPATIENT VISIT EST Diagnosis: Parkinson disease[ICD10: G20] Diagnosis: Dementia[ICD10: F03.90] Arlyn THOMPSONND DEMETRI [facility] CPT-4: 64667 04/26/2021 ([id number]) OFFICE/OUTPATIENT VISIT EST Diagnosis: 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] Diagnosis: 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: G30.9] Arlyn THOMPSONNDER [facility] CPT-4: 43331 07/13/2020 ([id number]) OFFICE/OUTPATIENT VISIT EST Diagnosis: Alzheimer's disease, unspecified[ICD10: G30.9] Arlyn THOMPSONNDDEMETRI DO [facility] CPT-4: 69862 04/06/2020 ([id number]) OFFICE/OUTPATIENT VISIT EST Diagnosis: Alzheimer's disease with late onset[ICD10: G30.1] Diagnosis: Generalized anxiety disorder[ICD10: F41.1] Diagnosis: Unspecified dementia with behavioral disturbance[ICD10: F03.91] Arlyn FAUSTIN RmDiane JULIO [employer] [facility] CPT-4: 84771 07/01/2019 ([id number]) OFFICE/OUTPATIENT VISIT EST Diagnosis: Alzheimer's disease with late onset[ICD10: G30.1] Diagnosis: Abnormal weight loss[ICD10: R63.4] Diagnosis: Essential (primary) hypertension[ICD10: I10] Diagnosis: Melena[ICD10: K92.1] Diagnosis: Unspecified dementia with behavioral disturbance[ICD10: F03.91] Diagnosis: Spontaneous ecchymoses[ICD10: R23.3] Arlyn ROCHE RmDiane JULIO [employer] [facility] CPT-4: 33544 05/27/2019 ([id number]) OFFICE/OUTPATIENT VISIT EST Diagnosis: 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] Diagnosis: Alzheimer's disease with late onset[ICD10: G30.1] Diagnosis: Melena[ICD10: K92.1] Diagnosis: Abnormal weight loss[ICD10: R63.4] Arlyn VENEGAS Krish LOPEZ [facility] CPT-4: 79823 04/22/2019 ([id number]) OFFICE/OUTPATIENT VISIT EST Diagnosis: 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] Diagnosis: Slow transit constipation[ICD10: K59.01] Diagnosis: Unspecified dementia with behavioral disturbance[ICD10: F03.91] Arlyn FAUSTIN RmDiane JUL[facility] [employer] [facility] CPT-4: 50384 02/09/2019 ([id number]) OFFICE/OUTPATIENT VISIT EST Diagnosis: Alzheimer's disease with late onset[ICD10: G30.1] Diagnosis: 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] Diagnosis: Nocturia[ICD10: R35.1] Diagnosis: Constipation, unspecified[ICD10: K59.00] Arlyn FAUSTIN RmDiane JUL[facility] [employer] [facility] [employer] CPT-4: 88789 01/07/2019 ([id number]) NURSE/OUTPATIENT VISIT EST Diagnosis: FLU VACCINE[ICD10: Z23] Diagnosis: PNEUMOCOCCAL VACCINE[ICD10: Z23] Arlyn LOPEZ DO [facility] CPT-4: 96840 08/20/2018 ([id number]) OFFICE/OUTPATIENT VISIT EST Diagnosis: Mixed hyperlipidemia[ICD10: E78.2] Diagnosis: Essential (primary) hypertension[ICD10: I10] Diagnosis: Alzheimer's disease, unspecified[ICD10: G30.9] Arlyn LOPEZ [facility] CPT-4: 91510 07/09/2018 ([id number]) OFFICE/OUTPATIENT VISIT EST Diagnosis: PNEUMOCOCCAL VACCINE[ICD10: Z23] Diagnosis: FLU VACCINE[ICD10: Z23] Arlyn BRYSON ER [facility] CPT-4: 45592 08/14/2017 ([id number]) OFFICE/OUTPATIENT VISIT EST Diagnosis: FLU VACCINE[ICD10: Z23] Arlyn BRYSON [facility] CPT-4: 14861 10/03/2016 ([id number]) OFFICE/OUTPATIENT VISIT EST Diagnosis: HYPERTENSION[ICD9: 401.9] Diagnosis: HYPERLIPIDEMIA NEC/NOS[ICD9: 272.4] Diagnosis: MEMORY LOSS[ICD9: 780.93] Diagnosis: - I - ANXIETY STATE NOS[ICD9: 300.00] Diagnosis: FLU VACCINE[ICD10: Z23] Arlyn BRYSON ER [facility] CPT-4: 63678 09/01/2014 OFFICE/OUTPATIENT VISIT EST Diagnosis: HYPERTENSION[ICD9: 401.9] Diagnosis: CAD[ICD9: 414.00] Diagnosis: HYPERLIPIDEMIA NEC/NOS[ICD9: 272.4] Diagnosis: MEMORY LOSS[ICD9: 780.93] Diagnosis: ANXIETY STATE NOS[ICD9: 300.00] Diagnosis: Testicular pain[ICD9: 608.9] Arlyn LOPEZ [facility] CPT-4: 50771 07/02/2013 ([id number]) OFFICE/OUTPATIENT VISIT EST Diagnosis: MEMORY LOSS[ICD9: 780.93] Arlyn ALANIZR [facility] CPT-4: 34328 06/25/2012 ([id number]) OFFICE/OUTPATIENT VISIT EST Diagnosis: HYPERLIPIDEMIA NEC/NOS[ICD9: 272.4] Diagnosis: HYPERTENSION[ICD9: 401.9] Diagnosis: CAD[ICD9: 414.00] Diagnosis: MEMORY LOSS[ICD9: 780.93] Arlyn SIMMONS [facility] CPT-4: 88018 05/15/2012 PER PM REEVAL EST PAT 65+ YR Diagnosis: ROUTINE MEDICAL EXAM[ICD9: V70.0] Diagnosis: HYPERLIPIDEMIA NEC/NOS[ICD9: 272.4] Diagnosis: HYPERTENSION[ICD9: 401.9] Diagnosis: CAD[ICD9: 414.00] Diagnosis: Seborrheic dermatitis[ICD9: 690.10] Arlyn Rutherford DONNATROY [facility] CPT-4: 19565 12/06/2011 ([id number]) OFFICE/OUTPATIENT VISIT, EST Arlyn LOPEZ [employer] [facility] CPT-4: 97738 10/30/2010 Plan of Care Planned Activity Notes Codes Status Date Appointment: Arlyn Lopeztel: [address] [place] [address] Immunizations 08/18/2021 Visit Diagnosis Plan: Parkinson disease Discussion: In crease sinemet 25/100mg 2po BID Call in 1month ICD-9 : 332.0 ICD-10 : G20 07/05/2021 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 Discussion: PT/INR drawn ICD-9 : V58.61 ICD-10 : Z79.01 07/05/2021 Appointment: Arlyn Lopeztel: [address] [place], [place] [phone] US FOLLOW UP 07/05/2021 Visit Diagnosis Plan: Parkinson disease Discussion: Tr ial of sinemet 25/100mg po BID Fwup 2mos ICD-9 : 332.0 ICD-10 : G20 04/26/2021 Appointment: Arlyn Lopez WPtel: [address] [place], [place] [phone] US FOLLOW UP 04/26/2021 Appointment: Arlyn Lopez WPtel: [address] [place], [place] [id number] [place] CANCELED 01/11/2021 Visit Diagnosis Plan: Encounter for [facility] adult medical examination without abnormal findings Discussion: [...] ICD-10 : G30.1 10/12/2020 Visit Diagnosis Plan: [facility] (current) use of antic oagulants Discussion: Update PT/INR ICD-9 : V58.61 ICD-10 : Z79.01 10/12/2020 Appointment: Arlyn Lopez WPtel: [address] [place], [place] [phone] Annual Well Visit 10/12/2020 Visit Diagnosis Plan: [...] : F02.81 07/13/2020 Appointment: Arlyn Lopez WPtel: [address] [place], [place] [phone] US FOLLOW UP 07/13/2020 Care Plan: PT Pending 06/27/2020 Visit Diagnosis Plan: Alzheimer's disease, unspecified Discussion: Worsening has started OTC supplements Inquiring about meals on wheels Follow Up: 3 months ICD-9 : 331.0 ICD-10 : G30.9 04/06/2020 Appointment: Arlyn Lopez WPtel: [address] [place], [place] [phone] [place] FOLLOW UP 04/06/2020 Care Plan: Referral Order SNOMED-CT : [id number] Pending 04/06/2020 Appointment: Arlyn Lopez WPtel: [address] [place] [address] RESCHEDULED 02/24/2020 Care Plan: COMPREHEN METABOLIC PANEL [place] : 57460-9 Pending 12/14/2019 Care Plan: LIPID PANEL LOINC : 23958-4 Pending 12/14/2019 Care Plan: PT Pending 12/14/2019 [...] : Z51.81 09/02/2019 Appointment: Arlyn Lopez WPtel: [address] [place], [place] [phone] [place] originally 2 mo follow up Annual Well Visit 08/06 Visit Diagnosis Plan: Generalized anxiety disorder Dis cussion: Depakote already helping Follow Up: 2 months ICD-9 : 300.00 ICD-10 : F41.1 07/01/2019 Appointment: Arlyn Lopez WPtel: [address] [place] [address] US FOLLOW UP 07/01/2019 Visit Diagnosis Plan: [...] ICD-10 : K92.1 05/27/2019 Appointment: Arlyn Lopeztel: [address] [place] [address] US FOLLOW UP 05/27/2019 Visit Diagnosis Plan: [...] : F51.04 04/22/2019 Appointment: Arlyn Lopez WPtel: [address] [place] [address] US FOLLOW UP 04/22/2019 Visit Diagnosis Plan: [...] : K59.01 02/09/2019 Appointment: Arlyn Lopez WPtel: [address] [place], [place] [phone] FOLLOW UP 02/09/2019 Patient Education: escitalopram oxalate- [employer] [phone] Completed 02/09/2019 Patient Education: doxepin- [employer] [id number] Completed 02/09/2019 Visit Diagnosis Plan: Nocturia Discussion: [...] : F51.04 01/07/2019 Appointment: Arlyn Lopez WPtel: [address] [place], [place] [phone] FOLLOW UP 01/07/2019 Patient Education: tamsulosin- [employer] [id number] Completed 01/07/2019 Patient Education: doxepin- [employer] [id number] Completed 01/07/2019 Care Plan: COMPREH[place] METABOLIC [place]EL [place] : 10171-3 Pending 12/17/2018 Care Plan: CBC Pending 12/17/2018 Care Plan: LIPID PANEL LOINC : 41932-8 Pending 12/17/2018 Appointment: Arlyn Lopez WPtel: [address] [place], [place] [phone] [place] INJECTION 08/20/2018 Patient Education: Patient Medication [...] : I10 07/09/2018 Appointment: Arlyn Lopez WPtel: [address] [place], [place] [phone] [place] FOLLOW UP 07/09/2018 Patient Education: Patient Medication Summary Completed 07/09/2018 Visit Diagnosis Plan: Generalized anxiety disorder Dis cussion: Add lexapro 10mg q HS ICD-9 : 300.00 ICD-10 : F41.1 11/27/2017 Visit Diagnosis Plan: Alzheimer's disease, unspecified Discussion: Change Namenda XR to Namenda 10mg po BI Follow Up: 3 months ICD-9 : 331.0 ICD-10 : G30.9 11/27/2017 Visit Diagnosis Plan: Encounter for [facility] medical examination without abnormal findings Discussion: Update fasting lab ICD-9 : V70.0 ICD-10 : Z00.00 11/27/2017 Appointment: Arlyn Lopez WPtel: [address] [place] [address] Annual Well Visit 11/27/2017 Patient Education: Patient Medication Summary Completed 11/27/2017 Patient Education: Patient Medication Summary Completed 11/14/2017 Care Plan: CBC Pending 11/14/2017 Care Plan: PT Pending 11/14/2017 Care Plan: [place] : 35897-0 Pending 11/14/2017 Care Plan: LIPID PANEL LOINC : 59584-7 Pending 11/14/2017 Care Plan: ASSAY THYROID STIM HORMONE Pen ding 11/14/2017 Appointment: Arlyn Lopez WPtel: [address] [place], [place] [phone] [place] INJECTION 08/14/2017 Patient Education: Patient Medication Summary Completed 08/14/2017 Appointment: Arlyn Lopez WPtel: [address] [place], [place] [phone] [place] INJECTION 10/03/2016 Patient Education: Patient Medication Summary Completed 10/03/2016 Patient Education: Patient Medication Summary Completed 01/02/2016 Care Plan: CBC Ordered 01/02/2016 Visit Plan: Check fasting lab with next PT/INR Continue current meds Discussed trial of PPI but states gaviscon works if will take so will just try it 10/10/2015 Appointment: Arlyn Lopeztel: [address] [place], [place] [phone] 10/07/15 appt confirmed cn Annual Well Visit 05/2015 Patient Education: Patient Medication Summary Completed 10/10/2015 Appointment: Arlyn Lopez WPtel: [address] [place], [place] [phone] 08/31 no answer cell # 08/31 vm 2nd # FOLLOW UP 09/01/2014 Patient Education: Patient Medication Summary Completed 09/01/2014 Patient Education: Patient Medication Summary Completed 08/23/2014 Visit Plan: Lab discussed Check testicul ar US Change namenda to Namenda XR 23mg QD Check PSA 07/02/2013 Appointment: Arlyn Lopez WPtel: [address] [place], [place] [phone] ACUTE ILLNESS 07/02/2013 Patient Education: Patient Medication Summary Completed 07/02/2013 Visit Plan: Continue namenda 10mg po BID Discussed aricept 06/25/2012 Appointment: Arlyn Lopez WPtel: [address] [place], [place] [phone] confirmed w ACUTE ILLNESS 06/25/2012 Patient Education: Patient Medication Summary Completed 06/25/2012 Appointment: Arlyn Lopez WPtel: [address] [place], [place] [phone] FOLLOW UP 05/15/2012 Patient Education: Patient Medication Summary Completed 05/15/2012 Visit Plan: Continue current meds Lab di scussed Long discussion about meds, diet, exercise and weight loss for decreasing TG and elevating HDL Add Nystatin/TAC cream to use prn 12/06/2011 App[facility]ment: [facility] [phone] [id number] [place] CHECK UP 12/06/2011 Patient Education: Patient Medication Summary Completed 12/06/2011 Visit Plan: Check fasting lab--CMP, lipi ds, PSA, PT/INR Loan deferment paperwork filled out 10/30/2010 Appointment: Arlyn Lopez WPtel: [phone] [id number] [place] ESTABLISHED PATIENT 10/30/2010 Patient Education: Patient Medication Summary Completed 10/30/2010 Referral: Angeline Arellano WPtel: [address] [place] [address] [place] Referral Appointment Requested Instructions Comment . [...]
--- OUTSIDE RECORDS SUMMARY | 2021-10-12 10:16 | XMS REPORT | CCD ---
Author Author Ronnie Lopez D.O. Organization [facility] Address [address] [place] [address] Phone Care Team Providers Care Accounting Policy Consultant Name Role Phone Arlyn Lopez D.O., PP Unavailable CCM Unavailable Summary Purpose Interface Exchange Insurance Providers Payer name Policy type / Coverage type Covered libertarian ID Effective Begin Date Effective End Date [employer] Medicare [id number] Unknown Family History Family History data not found Social History Social History Element Codes Description Effective Dates Marital status Unknown 12/06/[address]: 3857643 Former smoker 2000 12/06/2011 Allergies, Adverse Reactions, [...] VACCINE ICD-10: Z23 ICD-9: V04.81 10/02/2016 Active [facility] (current) use of anticoagulants ICD-10: Z79. 01 [...] 788.43 01/07/2019 Active Atherosclerotic heart disease of [place] coronary arter y without angina pectoris ICD-10: [...] Fill Instructions memantine 10 mg tablet RxNorm: 736289 TAKE 1 TABLET TWI CE DAILY (REPLACES NAMENDA XR) 10/04/2021 04/01/2022 Active escitalopram 20 mg tablet RxNorm: 687303 TAKE 1 TABLET AT BEDTIME 1 12/05/2020 04/01/2022 Active warfarin 2 mg tablet RxNorm: 259931 TAKE 1 AND 1/2 TABL ETS ON SATURDAY, SATURDAY, SATURDAY, SATURDAY AND TAKE 2 TABLETS ON SATURDAY, SATURDAY AND Saturday08/23/2021 11/20/2021 Active tamsulosin 0.4 mg capsule RxNorm: 463642 TAKE 1 CAPSULE EVERY DAY 0 06/26/2021 09/23/2021 Inactive carbidopa 25 mg-levodopa 100 mg tablet RxNorm: 143857 T PHAM 1 TABLET TWICE DAILY FOR TREMORS 06/26/2021 07/04/2021 Inactive memantine 10 mg tablet RxNorm: 370072 TAKE 1 TABLET TWI CE DAILY (REPLACES NAMENDA XR) 06/26/2021 06/26/2021 Inactive escitalopram 20 mg tablet RxNorm: 564616 TAKE 1 TABLET AT BEDTIME 0 06/26/2021 06/26/2021 Inactive warfarin 2 mg tablet RxNorm: 289983 TAKE 1 AND 1/2 TABL ETS ON SATURDAY, SATURDAY, SATURDAY, SATURDAY AND TAKE 2 TABLETS ON SATURDAY, SATURDAY AND Saturday06/26/2021 06/26/2021 Inactive Sinemet 25 mg-100 mg tablet RxNorm: 260829 Take 1 Table t(s) Oral two times a day for tremors 04/26/2021 04/26/2021 Inactive memantine 10 mg tablet RxNorm: 733996 TAKE 1 TABLET TWI CE DAILY (REPLACES NAMENDA XR) 04/12/2021 04/12/2021 Inactive warfarin 2 mg tablet RxNorm: 138929 2 Tablet(s) Oral Mo through Saturday and 1.5 tablets on Saturday/Saturday01/19/2021 No Stop Date Active tamsulosin 0.4 mg capsule RxNorm: 147886 TAKE 1 CAPSULE EVERY DAY 0 12/19/2020 12/19/2020 Inactive warfarin 2 mg tablet RxNorm: 697144 TAKE 1 AND 1/2 TABL ETS ON SATURDAY, SATURDAY, SATURDAY, SATURDAY AND TAKE 2 TABLETS ON SATURDAY, SATURDAY AND Saturday12/12/2020 01/18/2021 Inactive escitalopram 20 mg tablet RxNorm: 689089 TAKE 1 TABLET AT BEDTIME 0 11/28/2020 11/28/2020 Inactive Namenda 10 mg tablet RxNorm: 575340 TAKE 1 TABLET TWICE DAILY (REPLACES NAMENDA XR) 10/17/2020 10/17/2020 Inactive melatonin 10 mg capsule RxNorm: 389267 1 Capsule(s) Oral QD 020 No Stop Date Active tamsulosin 0.4 mg capsule RxNorm: 460471 TAKE 1 CAPSULE EVERY DAY 1 12/18/2020 Inactive warfarin 2 mg tablet RxNorm: 702836 TAKE 1 AND 1/2 TABL ETS ON SATURDAY, SATURDAY, SATURDAY, SATURDAY AND TAKE 2 TABLETS ON SATURDAY, SATURDAY AND Saturday07/12/2020 12/11/2020 Inactive warfarin 2 mg tablet RxNorm: 643568 TAKE 1 AND 1/2 TABL ETS ON SATURDAY, SATURDAY, SATURDAY, SATURDAY AND TAKE 2 TABLETS ON SATURDAY, SATURDAY AND Saturday06/27/2020 07/11/2020 Inactive Namenda 10 mg tablet RxNorm: 765074 TAKE 1 TABLET TWICE DAILY (REPLACES NAMENDA XR) 04/18/2020 10/16/2020 Inactive tamsulosin 0.4 mg capsule RxNorm: 912192 1 Capsule(s) Oral QD 02/1108/10/2020 Inactive Depakote ER 250 mg tablet,extended release RxNorm: 0291202 1 Tab let(s) Oral QPM 01/21/2020 04/20/2020 Inactive warfarin 2 mg tablet RxNorm: 689571 TAKE 1 AND 1/2 TABL ETS ON SATURDAY, SATURDAY, SATURDAY AND SATURDAY AND TAKE 2 TABLETS ON SATURDAY, SATURDAY AND Saturday12/14/2019 06/26/2020 Inactive escitalopram 20 mg tablet RxNorm: 162056 TAKE 1 TABLET AT BEDTIME 0 11/16/2019 11/27/2020 Inactive Namenda 10 mg tablet RxNorm: 174056 TAKE 1 TABLET TWICE DAILY (REPLACES NAMENDA XR) 10/08/2019 04/17/2020 Inactive tamsulosin 0.4 mg capsule RxNorm: 801744 1 Capsule(s) Oral QD 09/0202/11/2020 Inactive warfarin 2 mg tablet RxNorm: 439046 1.5 Tablet(s) PO on , Th, Sat, and Sun and 2 tablets on Sat, Sat, Sat07/13/2019 07/12/2019 Inactive Depakote ER 250 mg tablet,extended release RxNorm: 0807902 1 Tab let(s) PO BID 06/08/2019 09/05/2019 Inactive pravastatin 80 mg tablet RxNorm: 677607 TAKE 1 TABLET EVERY DAY 11/201809/01/2019 Inactive warfarin 2 mg tablet RxNorm: 520456 TAKE 1 AND 1/2 TABS ON SATURDAY,SATURDAY AND SATURDAY AND TAKE 2 TABS ON , TH, SAT AND SUN (NEED MD APPOINTMENT) 03/09/2019 07/13/2019 Inactive Namenda 10 mg tablet RxNorm: 979803 TAKE 1 TABLET TWICE DAILY (REPLACES NAMENDA XR) 02/09/2019 08/07/2019 Inactive doxepin 25 mg capsule RxNorm: 3218294 1 Capsule(s) PO QH S for sleep replaces 10mg dose 02/09/2019 04/21/2019 Inactive escitalopram 20 mg tablet RxNorm: 515420 1 Tablet(s) PO QHS 019 08/07/2019 Inactive tamsulosin 0.4 mg capsule RxNorm: 783010 1 Capsule(s) P O QPM for urinary frequency 01/07/2019 02/12/2020 Inactive divalproex 250 mg tablet,delayed release RxNorm: 6282574 1 Table t(s) PO QHS 01/07/2019 01/07/2019 Inactive doxepin 10 mg capsule RxNorm: 8872750 1-2 Capsule(s) PO QHS as n eeded for sleep 01/07/2019 02/08/2019 Inactive warfarin 2 mg tablet RxNorm: 712854 1 1/2 Tablet(s) PO MWF and 2 tablets on T Th Sat and Sun 12/29/2018 03/08/2019 Inactive metoprolol tartrate 50 mg tablet RxNorm: 169035 TAKE 1 TABLET T WICE DAILY 12/01/2018 06/30/2019 Inactive Namenda 10 mg tablet RxNorm: 321875 TAKE 1 TABLET TWICE DAILY (REPLACES NAMENDA XR) 09/22/2018 02/08/2019 Inactive warfarin 2 mg tablet RxNorm: 444476 1 1/2 Tablet(s) PO MWF and 2 tablets on T Th Sat and Sun 09/02/2018 09/01/2018 Inactive escitalopram 10 mg tablet RxNorm: 108342 1 Tablet(s) PO QHS 018 02/08/2019 Inactive pravastatin 80 mg tablet RxNorm: 597046 1 Tablet(s) PO QD 01/28/2018 10/24/2018 Inactive Namenda 10 mg tablet RxNorm: 680355 1 Tablet(s) PO BID 11/27/2017 Inactive escitalopram 10 mg tablet RxNorm: 668974 1 Tablet(s) PO QHS 018 06/09/2018 Inactive Namenda XR 28 mg capsule sprinkle,extended release RxNorm: 9 79638 TAKE ONE CAPSULE BY MOUTH ONCE DAILY 10/10/2017 11/26/2017 Inactive metoprolol tartrate 50 mg tablet RxNorm: 678872 Tablet( s) TAKE 1 TABLET TWICE DAILY 10/03/2017 09/27/2018 Inactive warfarin 2 mg tablet RxNorm: 830055 Tablet(s) TAKE 2 TA BLETS SATURDAY THROUGH SATURDAY AND 1 TABLET SATURDAY AND Saturday05/09/2017 09/02/2018 Inactive divalproex 250 mg tablet,delayed release RxNorm: 7688756 TAKE 1 TABLET TWICE DAILY 02/19/2017 01/06/2019 Inactive Namenda XR 28 mg capsule sprinkle,extended release RxNorm: 9 28888 TAKE 1 CAPSULE EVERY DAY 02/11/2017 10/09/2017 Inactive pravastatin 80 mg tablet RxNorm: 270273 1 Tablet(s) PO QD 01/21/2017 01/28/2018 Inactive Namenda XR 28 mg capsule sprinkle,extended release RxNorm: 9 29769 TAKE ONE CAPSULE BY MOUTH ONCE DAILY 09/24/2016 02/10/2017 Inactive metoprolol tartrate 50 mg tablet RxNorm: 287626 TAKE 1 TABLET T WICE DAILY 09/10/2016 10/03/2017 Inactive warfarin 2 mg tablet RxNorm: 988021 TAKE 2 TABLETS THROUGH SATURDAY AND 1 TABLET SATURDAY AND Saturday2016 05/09/2017 Inactive divalproex 250 mg tablet,delayed release RxNorm: 6656536 1 Table t(s) PO QHS 12/19/2015 12/12/2016 Inactive pravastatin 80 mg tablet RxNorm: 094081 1 Tablet(s) PO QD 12/19/2015 01/21/2017 Inactive Namenda XR 28 mg capsule sprinkle,extended release RxNorm: 9 04789 1 Capsule(s) PO QD 11/11/2015 09/23/2016 Inactive divalproex 250 mg tablet,delayed release RxNorm: 4720673 1 Table t(s) PO QHS 10/10/2015 12/19/2015 Inactive Namenda XR 28 mg capsule sprinkle,extended release RxNorm: 9 07045 1 Capsule(s) PO QD TAKE 1 CAPSULE EVERY DAY 11/09/2014 11/11/2015 Inactive Namenda XR 28 mg capsule sprinkle,ER 24hr RxNorm: 840005 1 PO QD TAKE ONE CAPSULE BY MOUTH ONCE DAILY 10/07/2014 11/09/2014 Inactive Namenda XR 28 mg capsule sprinkle,ER 24hr RxNorm: 039245 1 Caps ule(s) PO QD 11/10/2013 10/07/2014 Inactive metoprolol tartrate 50 mg tablet RxNorm: 160293 1 Tablet(s) PO BID 05/14/2013 05/08/2014 Inactive 1BID (REPLACES TOPROL) - [place] E ONE TABLET BY MOUTH TWICE DAILY (REPLACES TOPROL) Ativan 1 mg tablet RxNorm: 876750 1 Tablet(s) PO BID 05/01/201310/09 Inactive as needed for anxiety pravastatin 40 mg tablet RxNorm: 106604 1 Tablet(s) PO QD due for labs in late summer03/26/2013 11/10/2014 Inactive warfarin 2 mg tablet RxNorm: 880070 1 Tablet(s) PO Take 2 tablets by mouth Saturday through Saturday and 1 tablet on Saturday and Saturday10/07/2012 Inactive pravastatin 40 mg tablet RxNorm: 927529 1 Tablet(s) PO QD 08/13/2012 03/26/2013 Inactive metoprolol tartrate 50 mg tablet RxNorm: 468038 1 Tablet(s) PO BID 08/13/2012 05/14/2013 Inactive 1BID (REPLACES TOPROL) - [place] E ONE TABLET BY MOUTH TWICE DAILY (REPLACES TOPROL) warfarin 2 mg tablet RxNorm: 009136 1 Tablet(s) PO QD 08/13/201202/2012 Inactive warfarin 2 mg tablet RxNorm: 822863 Tablet(s) PO 11/07/2011 08/13/2012 Inactive 2QD - TAKE TWO TABLETS BY MOUTH EVERY DAY SATURDAY THROUGH SATURDAY AND 1 TABLET ON SATURDAY AND SATURDAY pravastatin 40 mg tablet RxNorm: 241650 1 Tablet(s) PO QD 10/15/2011 08/13/2012 Inactive Ativan 1 mg tablet RxNorm: 258753 1 Tablet(s) PO BID 10/01/201109/30 Active as needed for anxiety metoprolol tartrate 50 mg tablet RxNorm: 114620 1 Tablet(s) PO BID 08/27/2011 08/13/2012 Inactive 1BID (REPLACES TOPROL) - [place] E ONE TABLET BY MOUTH TWICE DAILY (REPLACES TOPROL) pravastatin 40 mg Tab RxNorm: 324264 1 Tablet(s) PO QD 07/10/201109/2011 Inactive Ativan 1 mg Tab RxNorm: 183778 1 Tablet(s) PO BID 07/02/2011 1 Active as needed for anxiety metoprolol tartrate 50 mg Tab RxNorm: 915924 1 Tablet(s ) PO BID 1BID (REPLACES TOPROL) - TAKE ONE TABLET BY MOUTH TWICE DAILY (REPLACES TOPROL) 03/12/2011 08/26/2011 Inactive Ativan 1 mg Tab RxNorm: 575011 1 Tablet(s) PO BID as needed for anxiety 02/26/2011 02/25/2011 Active warfarin 2 mg Tab RxNorm: 932364 Tablet(s) PO 2QD - T PHAM TWO TABLETS BY MOUTH EVERY DAY SATURDAY THROUGH SATURDAY AND 1 TABLET ON SATURDAY AND Saturday12/18/2010 11/07/2011 Inactive Ativan 1 mg Tab RxNorm: 869607 1 Tablet(s) PO BID PRN for anxiety 0 11/06/2010 01/06/2019 Inactive metoprolol tartrate 50 mg Tab RxNorm: 908555 1 Tablet(s ) PO BID 1BID (REPLACES TOPROL) - TAKE ONE TABLET BY MOUTH TWICE DAILY (REPLACES TOPROL) 09/11/2010 03/12/2011 Inactive Ativan 1 mg Tab RxNorm: 989597 1 Tablet(s) PO BID PRN for anxiety 1 11/06/2010 Inactive warfarin 2 mg Tab RxNorm: 334229 Tablet(s) PO 2QD - T PHAM TWO TABLETS BY MOUTH EVERY DAY SATURDAY THROUGH SATURDAY AND 1 TABLET ON SATURDAY AND Saturday07/24/2010 10/29/2010 Inactive metoprolol tartrate 50 mg Tab RxNorm: 715702 1 Tablet(s) PO QD 01/201009/11/2010 Inactive pravastatin 40 mg Tab RxNorm: 004222 1 Tablet(s) PO QD 06/06/201004/2011 Inactive Warfarin 2 mg Tab RxNorm: 062743 2 Tablet(s) PO QD 2 tablets by mouth Saturday through Saturday, and one tablet by mouth on Saturday and Saturday. 06/06/2010 07/23/2010 Inactive Ativan 1 mg Tab RxNorm: 245927 1 Tablet(s) PO QHS PRN for anxiety 0 06/06/2010 08/27/2010 Inactive Pravastatin 40 mg Tab RxNorm: 102321 1 Tablet(s) PO QD 04/14/201012/2009 Inactive Ativan 1 mg Tab RxNorm: 875065 1 Tablet(s) PO BID PRN for anxiety 0 02/23/2010 06/02/2010 Inactive Probiotic oral RxNorm: 6205 oral 04/07/2020 Active [place] 3 Natural Fish Oil Conc capsule RxNorm: 1 Capsule(s) PO QD 0 11/27/2017 Active turmeric-turmeric root extract oral RxNorm: 3092700 oral 11/27/19 18 Active magnesium oral RxNorm: 6574 oral 04/07/2020 Active Vitamin D3 5,000 unit tablet RxNorm: 921119 1 Tablet(s) PO QD 019 Active warfarin 2 mg tablet RxNorm: 266420 1 Tablet(s) PO QD 08/13/201207/2012 Inactive Ativan 1 mg Tab RxNorm: 398020 1 Tablet(s) PO BID as needed for anxiety 02/26/2011 02/25/2011 Inactive warfarin 2 mg Tab RxNorm: 679170 2 Tablet(s) PO QD saturday06/06/2012 06/05/2012 Inactive Tricor 145 mg Tab RxNorm: 677416 1 Tablet(s) PO QD 12/06/2011 012 Inactive warfarin 4 mg tablet RxNorm: 941318 Tablet(s) PO 11/27/2017 11/26/2017 Inactive warfarin 2 mg Tab RxNorm: 828687 1 Tablet(s) PO QD on saturday and saturday06/06/2012 06/05/2012 Inactive warfarin 2 mg tablet RxNorm: 126678 1.5 Tablet(s) PO on , , Sat, and Sun and 2 tablets on Sat, Sat, Sat07/13/2019 07/12/2019 Inactive pravastatin 80 mg tablet RxNorm: 070610 1 Tablet(s) PO QD 12/19/2015 12/19/2015 Inactive metoprolol tartrate 50 mg tablet RxNorm: 708910 1 Tablet(s) PO QD 1 09/01/2019 Inactive Warfarin 2 mg Tab RxNorm: 481119 Tablet(s) PO 2 table ts by mouth Saturday through Saturday, and one tablet by mouth on Saturday and Saturday. 06/06/2010 08/0 12/2009 Inactive Namenda 10 mg Tab RxNorm: 140748 2 Tablet(s) PO QD 07/02/2013 013 Inactive warfarin 2 mg tablet RxNorm: 783221 1 1/2 Tablet(s) PO MWF and 2 tablets on Sat and Sun 09/02/2018 09/01/2018 Inactive Ativan 1 mg Tab RxNorm: 829861 1 Tablet(s) PO BID PRN for anxiety 0 04/20/2010 04/19/2010 Inactive warfarin 2 mg Tab RxNorm: 499400 Tablet(s) PO take 2 tablets by mouth Sat-Sat and 1 tablet on Saturday and Saturday06/06/2012 06/05/2012 Inactive Depakote ER 250 mg tablet,extended release RxNorm: 4559536 1 Tab let(s) PO BID 11/27/2017 11/26/2017 Inactive warfarin 1 mg Tab RxNorm: 589405 1 Tablet(s) PO on Saturday and Saturday10/30/2010 [...] Code Result Date S ervice Location PT 1051140 PT 24.4 Seconds 07/05/2021 Unknow n PT [id number] INR 2.2 07/05/2021 Unknown PT [id number] PT 25.2 Seconds 04/28/2021 Unknow n PT [id number] INR 2.3 04/28/2021 Unknown THYROID STIMULATING HORMONE 29123 TSH 2.271 uIU/mL 04/28/2021 Unknown COMPREHENSIVE METABOLIC 53737 AST 18 U/L 2020 Unknown COMPREHENSIVE METABOLIC 93682 ALT 9 U/L 2020 Unknown COMPREHENSIVE METABOLIC 87454 BUN 17 mg/dL 2020 Unknown COMPREHENSIVE METABOLIC 31018 ALBUMIN 3.8 g/dL 2020 Unknown COMPREHENSIVE METABOLIC 72045 CHLORIDE 108 mmol/L 04/28 Unknown COMPREHENSIVE METABOLIC 83327 Bili Total 0.7 mg/dL 04/28 Unknown COMPREHENSIVE METABOLIC 31194 ALK PHOS 76 U/L 2020 Unknown COMPREHENSIVE METABOLIC 12703 SODIUM 140 mmol/L 04/28 Unknown COMPREHENSIVE METABOLIC 09898 CREATININE 0.83 mg/dL 04/05 Unknown COMPREHENSIVE METABOLIC 58351 CALCIUM 9.5 mg/dL 2020 Unknown COMPREHENSIVE METABOLIC 83697 POTASSIUM 4.1 mmol/L 04/28 Unknown COMPREHENSIVE METABOLIC 92327 Total Protein 6.9 g/dL Unknown COMPREHENSIVE METABOLIC 84559 Glucose 106 mg/dL 2020 Unknown COMPREHENSIVE METABOLIC 35971 Bicarbonate 26 mmol/L 04/05 Unknown COMPREHENSIVE METABOLIC 65966 AGAP 6 mmol/L 2020 Unknown GFR CALC [id number] GFR Non Afr Amr >60 mL/min 04/28/2021 Un known GFR CALC 9644072 GFR Afr Amr >60 mL/min 04/28/2021 Unknow n COMPLETE BLOOD COUNT 6977295 WBC 4.6 10e9/L 04/28/20 21 Unknown COMPLETE BLOOD COUNT [id number] RBC 4.39 10e12/L 2020 Unknown COMPLETE BLOOD COUNT [id number] HEMOGLOBIN 14.2 g/dL 04/28/20 21 Unknown COMPLETE BLOOD COUNT [id number] HEMATOCRIT 41.1 % 04/28/20 21 Unknown COMPLETE BLOOD COUNT [id number] MCV 93.6 fL 1 Unknown COMPLETE BLOOD COUNT 8609079 MCH 32.3 pg 1 Unknown COMPLETE BLOOD COUNT 9286619 MCHC 34.5 g/dL 1 Unknown COMPLETE BLOOD COUNT [id number] PLATELET COUNT 198 10e9/L Unknown COMPLETE BLOOD COUNT 8774861 Mean Plt Volume 9.3 fL Unknown COMPLETE BLOOD COUNT [id number] Neut Auto 54.8 % 1 Unknown COMPLETE BLOOD COUNT [id number] Lymph Auto 33.7 % 04/28/20 21 Unknown COMPLETE BLOOD COUNT [id number] Johnson Auto 9.6 % 1 Unknown COMPLETE BLOOD COUNT [id number] RDW 12.2 % 1 Unknown COMPLETE BLOOD COUNT 9438790 Eos Auto 1.7 % 1 Unknown COMPLETE BLOOD COUNT [id number] Baso Auto 0.2 % 1 Unknown COMPLETE BLOOD COUNT 7135538 Neutrophil Abs 2.52 10e9/L Unknown COMPLETE BLOOD COUNT [id number] Lymphocyte Abs 1.55 10e9/L Unknown COMPLETE BLOOD COUNT [id number] Monocyte Abs 0.44 10e9/L 04/05 Unknown COMPLETE BLOOD COUNT [id number] Eosinophil Abs 0.08 10e9/L Unknown COMPLETE BLOOD COUNT [id number] RDW-SD 40.9 fL 1 Unknown COMPLETE BLOOD COUNT [id number] Basophil Abs 0.01 10e9/L 04/05 Unknown FREE T4 03141 T4 Free 0.81 ng/dL 04/28/2021 Unknown PT [id number] PT 19.8 Seconds 01/18/2021 Unknow n PT [id number] INR 1.6 01/18/2021 Unknown PT [id number] PT 18.7 Seconds 10/14/2020 Unknow n PT [id number] INR 1.5 10/14/2020 Unknown COMPREHENSIVE METABOLIC 14074 AST 17 U/L 2019 Unknown COMPREHENSIVE METABOLIC 05810 ALT 10 U/L 2019 Unknown COMPREHENSIVE METABOLIC 68446 BUN 19 mg/dL 2019 Unknown COMPREHENSIVE METABOLIC 37839 ALBUMIN 4.1 g/dL 2019 Unknown COMPREHENSIVE METABOLIC 27095 CHLORIDE 103 mmol/L 10/14 Unknown COMPREHENSIVE METABOLIC 06746 Bili Total 0.6 mg/dL 10/14 Unknown COMPREHENSIVE METABOLIC 86400 ALK PHOS 65 U/L 2019 Unknown COMPREHENSIVE METABOLIC 90946 SODIUM 141 mmol/L 10/14 Unknown COMPREHENSIVE METABOLIC 53311 CREATININE 0.77 mg/dL 10/04 Unknown COMPREHENSIVE METABOLIC 25628 CALCIUM 9.2 mg/dL 2019 Unknown COMPREHENSIVE METABOLIC 66957 POTASSIUM 4.2 mmol/L 10/14 Unknown COMPREHENSIVE METABOLIC 07845 Total Protein 6.7 g/dL Unknown COMPREHENSIVE METABOLIC 23030 Glucose 91 mg/dL 2019 Unknown COMPREHENSIVE METABOLIC 35620 Bicarbonate 28 mmol/L 10/04 Unknown COMPREHENSIVE METABOLIC 25430 AGAP 10 mmol/L 2019 Unknown FREE T4 06145 T4 Free 0.81 ng/dL 10/14/2020 Unknown HEMOGLOBIN A1C (GLYCOSYLATED) 9419236 Hgb A1c 86764-2 4.4 % 10/14/2020 Unknown HEMOGLOBIN A1C (GLYCOSYLATED) 5431357 Calc Mean Gluc 80 mg /dL 10/14/2020 Unknown COMPLETE BLOOD COUNT 2451317 WBC 5.4 10e9/L 10/14/20 20 Unknown COMPLETE BLOOD COUNT 6949718 RBC 4.40 10e12/L 2019 Unknown COMPLETE BLOOD COUNT 6185884 HEMOGLOBIN 14.4 g/dL 10/14/20 20 Unknown COMPLETE BLOOD COUNT [id number] HEMATOCRIT 42.4 % 10/14/20 20 Unknown COMPLETE BLOOD COUNT 1285801 MCV 96.4 fL 0 Unknown COMPLETE BLOOD COUNT [id number] MCH 32.7 pg 0 Unknown COMPLETE BLOOD COUNT 1210410 MCHC 34.0 g/dL 0 Unknown COMPLETE BLOOD COUNT 3020135 PLATELET COUNT 216 10e9/L 09/2020 Unknown COMPLETE BLOOD COUNT 4762933 Mean Plt Volume 9.5 fL 09/2020 Unknown COMPLETE BLOOD COUNT 9801563 Neut Auto 57.6 % 0 Unknown COMPLETE BLOOD COUNT 6978470 Lymph Auto 31.5 % 10/14/20 20 Unknown COMPLETE BLOOD COUNT [id number] Johnson Auto 9.0 % 0 Unknown COMPLETE BLOOD COUNT 0865072 RDW 12.4 % 0 Unknown COMPLETE BLOOD COUNT 3060454 Eos Auto 1.7 % 0 Unknown COMPLETE BLOOD COUNT 3570404 Baso Auto 0.2 % 0 Unknown COMPLETE BLOOD COUNT 9391280 Neutrophil Abs 3.11 10e9/L Unknown COMPLETE BLOOD COUNT 5905648 Lymphocyte Abs 1.70 10e9/L Unknown COMPLETE BLOOD COUNT 0910226 Monocyte Abs 0.49 10e9/L 10/04 Unknown COMPLETE BLOOD COUNT [id number] Eosinophil Abs 0.09 10e9/L Unknown COMPLETE BLOOD COUNT 0488164 RDW-SD 42.4 fL 0 Unknown COMPLETE BLOOD COUNT 2475135 Basophil Abs 0.01 10e9/L 10/04 Unknown THYROID STIMULATING HORMONE 70415 TSH 2.071 uIU/mL 10/14/2020 Unknown LIPID GROUP 40396 Cholesterol 217 mg/dL 10/14/2020 Unkno wn LIPID GROUP 55578 Triglyceride 108 mg/dL 10/14/2020 Unkn own LIPID GROUP 73764 HDL CHOLESTEROL 46 mg/dL 10/14/2020 U nknown LIPID GROUP 20089 Chol/HDL Ratio 4.72 ratio 10/14/2020 U nknown LIPID GROUP 23504 NON-HDL Chol 171 mg/dL 10/14/2020 Unkn own LIPID GROUP 14277 LDL Cholesterol 149 mg/dL 10/14/2020 U nknown GFR CALC 7252983 GFR Non Afr Amr >60 mL/min 10/14/2020 Un known GFR CALC 7749973 GFR Afr Amr >60 mL/min 10/14/2020 Unknow n COMPLETE BLOOD COUNT 1529804 WBC 7.6 10e9/L 04/06/20 20 Unknown COMPLETE BLOOD COUNT 2923732 RBC 3.90 10e12/L 2019 Unknown COMPLETE BLOOD COUNT 1536308 HEMOGLOBIN 12.0 g/dL 04/06/20 20 Unknown COMPLETE BLOOD COUNT 9744141 HEMATOCRIT 36.9 % 04/06/20 20 Unknown COMPLETE BLOOD COUNT 6184674 MCV 94.6 fL 0 Unknown COMPLETE BLOOD COUNT 4233363 MCH 30.8 pg 0 Unknown COMPLETE BLOOD COUNT 0454624 MCHC 32.5 g/dL 0 Unknown COMPLETE BLOOD COUNT 2832517 PLATELET COUNT 257 10e9/L 01/2020 Unknown COMPLETE BLOOD COUNT 3073021 Mean Plt Volume 8.6 fL 01/2020 Unknown COMPLETE BLOOD COUNT 1420210 Neut Auto 68.7 % 0 Unknown COMPLETE BLOOD COUNT 6558834 Lymph Auto 22.0 % 04/06/20 20 Unknown COMPLETE BLOOD COUNT 4887969 Johnson Auto 8.3 % 0 Unknown COMPLETE BLOOD COUNT 6543586 Eos Auto 0.7 % 0 Unknown COMPLETE BLOOD COUNT 9327148 RDW 12.7 % 0 Unknown COMPLETE BLOOD COUNT 0009895 Baso Auto 0.3 % 0 Unknown COMPLETE BLOOD COUNT 3329369 Neutrophil Abs 5.22 10e9/L Unknown COMPLETE BLOOD COUNT 6313330 Lymphocyte Abs 1.67 10e9/L Unknown COMPLETE BLOOD COUNT 6685691 Monocyte Abs 0.63 10e9/L 01/2020 Unknown COMPLETE BLOOD COUNT 3490115 Eosinophil Abs 0.05 10e9/L Unknown COMPLETE BLOOD COUNT 7942036 Basophil Abs 0.02 10e9/L 01/2020 Unknown COMPLETE BLOOD COUNT [id number] RDW-SD 42.6 fL 0 Unknown PT [id number] PT 19.3 Seconds 04/06/2020 Unknow n PT [id number] INR 1.6 04/06/2020 Unknown COMPREHENSIVE METABOLIC 82766 AST 12 U/L 2019 Unknown COMPREHENSIVE METABOLIC 55429 ALT 7 U/L 2019 Unknown COMPREHENSIVE METABOLIC 66500 BUN 19 mg/dL 2019 Unknown COMPREHENSIVE METABOLIC 65745 ALBUMIN 3.8 g/dL 2019 Unknown COMPREHENSIVE METABOLIC 02336 CHLORIDE 103 mmol/L 04/06 Unknown COMPREHENSIVE METABOLIC 29888 Bili Total 0.4 mg/dL 04/06 Unknown COMPREHENSIVE METABOLIC 56061 ALK PHOS 78 U/L 2019 Unknown COMPREHENSIVE METABOLIC 21954 SODIUM 141 mmol/L 04/06 Unknown COMPREHENSIVE METABOLIC 70789 CREATININE 0.90 mg/dL 01/2020 Unknown COMPREHENSIVE METABOLIC 85994 CALCIUM 9.0 mg/dL 2019 Unknown COMPREHENSIVE METABOLIC 97222 POTASSIUM 3.8 mmol/L 04/06 Unknown COMPREHENSIVE METABOLIC 25629 Total Protein 6.1 g/dL Unknown COMPREHENSIVE METABOLIC 13693 Glucose 125 mg/dL 2019 Unknown COMPREHENSIVE METABOLIC 84500 Bicarbonate 27 mmol/L 01/2020 Unknown COMPREHENSIVE METABOLIC 38040 AGAP 11 mmol/L 2019 Unknown GFR CALC 3414041 GFR Afr Amr >60 mL/min 04/06/2020 Unknow n GFR CALC [id number] GFR Non Afr Amr >60 mL/min 04/06/2020 Un known PT [id number] PT 25.2 Seconds 09/02/2019 Unknow n PT [id number] INR 2.2 09/02/2019 Unknown PT 6658434 PT 26.5 Seconds 04/22/2019 Unknow n PT [id number] INR 2.3 04/22/2019 Unknown FERRITIN 74768 FERRITIN 240.3 ng/mL 04/22/2019 Unknown COMPLETE BLOOD COUNT 7718858 WBC 7.7 10e9/L 04/22/20 19 Unknown COMPLETE BLOOD COUNT 1775031 RBC 4.19 10e12/L 2018 Unknown COMPLETE BLOOD COUNT 6202986 HEMOGLOBIN 13.5 g/dL 04/22/20 19 Unknown COMPLETE BLOOD COUNT 7090454 HEMATOCRIT 39.6 % 04/22/20 19 Unknown COMPLETE BLOOD COUNT 6459932 MCV 94.5 fL 9 Unknown COMPLETE BLOOD COUNT 3718989 MCH 32.2 pg 9 Unknown COMPLETE BLOOD COUNT 7758097 MCHC 34.1 g/dL 9 Unknown COMPLETE BLOOD COUNT 3478451 PLATELET COUNT 235 10e9/L Unknown COMPLETE BLOOD COUNT 3285290 Mean Plt Volume 9.8 fL Unknown COMPLETE BLOOD COUNT 6637275 Neut Auto 68.5 % 9 Unknown COMPLETE BLOOD COUNT 7769621 Lymph Auto 22.4 % 04/22/20 19 Unknown COMPLETE BLOOD COUNT [id number] Johnson Auto 8.3 % 9 Unknown COMPLETE BLOOD COUNT [id number] Eos Auto 0.5 % 9 Unknown COMPLETE BLOOD COUNT [id number] RDW 12.4 % 9 Unknown COMPLETE BLOOD COUNT [id number] Baso Auto 0.3 % 9 Unknown COMPLETE BLOOD COUNT [id number] Neutrophil Abs 5.27 10e9/L Unknown COMPLETE BLOOD COUNT [id number] Lymphocyte Abs 1.72 10e9/L Unknown COMPLETE BLOOD COUNT [id number] Monocyte Abs 0.64 10e9/L 04/04 Unknown COMPLETE BLOOD COUNT [id number] Eosinophil Abs 0.04 10e9/L Unknown COMPLETE BLOOD COUNT [id number] Basophil Abs 0.02 10e9/L 04/04 Unknown COMPLETE BLOOD COUNT [id number] RDW-SD 41.6 fL 9 Unknown IRON 97835 Iron 95 ug/dL 04/22/2019 Unknown GFR CALC [id number] GFR Afr Amr >60 mL/min 01/05/2019 Unknow n GFR CALC [id number] GFR Non Afr Amr >60 mL/min 01/05/2019 Un known COMPREHENSIVE METABOLIC 01440 AST 15 U/L 2018 Unknown COMPREHENSIVE METABOLIC 71179 ALT 11 U/L 2018 Unknown COMPREHENSIVE METABOLIC 90302 BUN 16 mg/dL 2018 Unknown COMPREHENSIVE METABOLIC 71915 ALBUMIN 3.9 g/dL 2018 Unknown COMPREHENSIVE METABOLIC 19731 CHLORIDE 106 mmol/L 01/05 Unknown COMPREHENSIVE METABOLIC 36061 Bili Total 0.7 mg/dL 01/05 Unknown COMPREHENSIVE METABOLIC 69770 ALK PHOS 50 U/L 2018 Unknown COMPREHENSIVE METABOLIC 91190 SODIUM 138 mmol/L 01/05 Unknown COMPREHENSIVE METABOLIC 85182 CREATININE 0.74 mg/dL 02/2019 Unknown COMPREHENSIVE METABOLIC 14720 CALCIUM 9.0 mg/dL 2018 Unknown COMPREHENSIVE METABOLIC 38123 POTASSIUM 4.3 mmol/L 01/05 Unknown COMPREHENSIVE METABOLIC 19102 Total Protein 6.4 g/dL Unknown COMPREHENSIVE METABOLIC 27088 Glucose 114 mg/dL 2018 Unknown COMPREHENSIVE METABOLIC 62433 Bicarbonate 26 mmol/L 02/2019 Unknown COMPREHENSIVE METABOLIC 30580 AGAP 6 mmol/L 2018 Unknown COMPLETE BLOOD COUNT [id number] WBC 5.5 10e9/L 01/06/20 19 Unknown COMPLETE BLOOD COUNT [id number] RBC 4.27 10e12/L 2018 Unknown COMPLETE BLOOD COUNT [id number] HEMOGLOBIN 14.0 g/dL 01/06/20 19 Unknown COMPLETE BLOOD COUNT [id number] HEMATOCRIT 40.6 % 01/06/20 19 Unknown COMPLETE BLOOD COUNT [id number] MCV 95.1 fL 9 Unknown COMPLETE BLOOD COUNT [id number] MCH 32.8 pg 9 Unknown COMPLETE BLOOD COUNT [id number] MCHC 34.5 g/dL 9 Unknown COMPLETE BLOOD COUNT [id number] PLATELET COUNT 211 10e9/L 02/2019 Unknown COMPLETE BLOOD COUNT [id number] Mean Plt Volume 9.8 fL 02/2019 Unknown COMPLETE BLOOD COUNT [id number] Neut Auto 64.7 % 9 Unknown COMPLETE BLOOD COUNT [id number] Lymph Auto 24.3 % 01/06/20 19 Unknown COMPLETE BLOOD COUNT [id number] Johnson Auto 9.7 % 9 Unknown COMPLETE BLOOD COUNT 2174103 Eos Auto 1.1 % 9 Unknown COMPLETE BLOOD COUNT [id number] RDW 12.2 % 9 Unknown COMPLETE BLOOD COUNT [id number] Baso Auto 0.2 % 9 Unknown COMPLETE BLOOD COUNT [id number] Neutrophil Abs 3.56 10e9/L Unknown COMPLETE BLOOD COUNT [id number] Lymphocyte Abs 1.34 10e9/L Unknown COMPLETE BLOOD COUNT [id number] Monocyte Abs 0.53 10e9/L 02/2019 Unknown COMPLETE BLOOD COUNT [id number] Eosinophil Abs 0.06 10e9/L Unknown COMPLETE BLOOD COUNT [id number] Basophil Abs 0.01 10e9/L 02/2019 Unknown COMPLETE BLOOD COUNT [id number] RDW-SD 41.3 fL 9 Unknown LIPID GROUP 87210 Cholesterol 145 mg/dL 01/05/2019 Unkno wn LIPID GROUP 96304 Triglyceride 153 mg/dL 01/05/2019 Unkn own LIPID GROUP 93729 HDL CHOLESTEROL 39 mg/dL 01/05/2019 U nknown LIPID GROUP 37246 Chol/HDL Ratio 3.72 ratio 01/05/2019 U nknown LIPID GROUP 96615 NON-HDL Chol 106 mg/dL 01/05/2019 Unkn own LIPID GROUP 69897 LDL Cholesterol 75 mg/dL 01/05/2019 U nknown PT [id number] PT 30.5 Seconds 12/15/2018 Unknow n PT [id number] INR 2.9 12/15/2018 Unknown PT [id number] PT 17.2 Seconds 09/08/2018 Unknow n PT [id number] INR 1.4 09/08/2018 Unknown LIPID GROUP 68062 Cholesterol 190 mg/dL 07/08/2018 Unkno wn LIPID GROUP 78133 Triglyceride 402 mg/dL 07/08/2018 Unkn own L[facility] GROUP 36465 HDL CHOLESTEROL 36 mg/dL 07/08/2018 U nknown LIP[facility] GROUP 76905 Chol/HDL Ratio 5.28 ratio 07/08/2018 U nknown LIP[facility] GROUP 23957 NON-HDL Chol 154 mg/dL 07/08/2018 Unkn own LIP[facility] GROUP 25602 LDL Cholesterol N/A Trig >400 018 Unknown GFR CALC [id number] GFR Non Afr Amr >60 mL/min 07/08/2018 Un known GFR CALC 3665105 GFR Afr Amr >60 mL/min 07/08/2018 Unknow n COMPLETE BLOOD COUNT [id number] WBC 5.0 10e9/L 07/08/20 18 Unknown COMPLETE BLOOD COUNT [id number] RBC 4.08 10e12/L 2017 Unknown COMPLETE BLOOD COUNT [id number] HEMOGLOBIN 13.3 g/dL 07/08/20 18 Unknown COMPLETE BLOOD COUNT 5808127 HEMATOCRIT 38.6 % 07/08/20 18 Unknown COMPLETE BLOOD COUNT [id number] MCV 94.6 fL 8 Unknown COMPLETE BLOOD COUNT [id number] MCH 32.6 pg 8 Unknown COMPLETE BLOOD COUNT 5632237 MCHC 34.5 g/dL 8 Unknown COMPLETE BLOOD COUNT [id number] PLATELET COUNT 205 10e9/L 02/2018 Unknown COMPLETE BLOOD COUNT [id number] Mean Plt Volume 9.8 fL 02/2018 Unknown COMPLETE BLOOD COUNT 0338173 Neut Auto 52.8 % 8 Unknown COMPLETE BLOOD COUNT [id number] Lymph Auto 33.2 % 07/08/20 18 Unknown COMPLETE BLOOD COUNT [id number] Johnson Auto 11.6 % 8 Unknown COMPLETE BLOOD COUNT 4239788 RDW 12.5 % 8 Unknown COMPLETE BLOOD COUNT 2857098 Eos Auto 2.0 % 8 Unknown COMPLETE BLOOD COUNT 1401490 Baso Auto 0.4 % 8 Unknown COMPLETE BLOOD COUNT [id number] Neutrophil Abs 2.64 10e9/L Unknown COMPLETE BLOOD COUNT [id number] Lymphocyte Abs 1.66 10e9/L Unknown COMPLETE BLOOD COUNT [id number] Monocyte Abs 0.58 10e9/L 02/2018 Unknown COMPLETE BLOOD COUNT [id number] Eosinophil Abs 0.10 10e9/L Unknown COMPLETE BLOOD COUNT [id number] RDW-SD 41.8 fL 8 Unknown COMPLETE BLOOD COUNT [id number] Basophil Abs 0.02 10e9/L 02/2018 Unknown PT [id number] PT 32.9 Seconds 07/08/2018 Unknow n PT [id number] INR 3.2 07/08/2018 Unknown PT 4081935 PT TNP:Duplicate Order 8 Unknown PT [id number] INR TNP:Duplicate Order 8 Unknown COMPREHENSIVE METABOLIC 52592 AST TNP:Duplicate Or grace 07/08/2018 Unknown COMPREHENSIVE METABOLIC 25865 ALT TNP:Duplicate Or grace 07/08/2018 Unknown COMPREHENSIVE METABOLIC 79707 BUN TNP:Duplicate Or grace 07/08/2018 Unknown COMPREHENSIVE METABOLIC 15792 ALBUMIN TNP:Duplicate Or grace 07/08/2018 Unknown COMPREHENSIVE METABOLIC 77656 CHLORIDE TNP:Duplicate Or grace 07/08/2018 Unknown COMPREHENSIVE METABOLIC 69058 Bili Total TNP:Duplicate O rder 07/08/2018 Unknown COMPREHENSIVE METABOLIC 19460 ALK PHOS TNP:Duplicate Or grace 07/08/2018 Unknown COMPREHENSIVE METABOLIC 25655 SODIUM TNP:Duplicate Or grace 07/08/2018 Unknown COMPREHENSIVE METABOLIC 66261 CREATININE TNP:Duplicate O rder 07/08/2018 Unknown COMPREHENSIVE METABOLIC 27968 CALCIUM TNP:Duplicate Or grace 07/08/2018 Unknown COMPREHENSIVE METABOLIC 65631 POTASSIUM TNP:Duplicate Or grace 07/08/2018 Unknown COMPREHENSIVE METABOLIC 86247 Total Protein TNP:Duplicat e Order 07/08/2018 Unknown COMPREHENSIVE METABOLIC 22822 Glucose TNP:Duplicate Or grace 07/08/2018 Unknown COMPREHENSIVE METABOLIC 43070 Bicarbonate TNP:Duplicate Order 07/08/2018 Unknown COMPREHENSIVE METABOLIC 61435 AGAP TNP:Duplicate Or grace 07/08/2018 Unknown COMPREHENSIVE METABOLIC 70528 AST 17 U/L 2017 Unknown COMPREHENSIVE METABOLIC 84593 ALT 12 U/L 2017 Unknown COMPREHENSIVE METABOLIC 95800 BUN 20 mg/dL 2017 Unknown COMPREHENSIVE METABOLIC 11851 ALBUMIN 4.0 g/dL 2017 Unknown COMPREHENSIVE METABOLIC 74753 CHLORIDE 107 mmol/L 07/08 Unknown COMPREHENSIVE METABOLIC 99866 Bili Total 0.3 mg/dL 07/08 Unknown COMPREHENSIVE METABOLIC 12069 ALK PHOS 58 U/L 2017 Unknown COMPREHENSIVE METABOLIC 69617 SODIUM 139 mmol/L 07/08 Unknown COMPREHENSIVE METABOLIC 88240 CREATININE 0.72 mg/dL 02/2018 Unknown COMPREHENSIVE METABOLIC 76283 CALCIUM 7.8 mg/dL 2017 Unknown COMPREHENSIVE METABOLIC 32677 POTASSIUM 4.1 mmol/L 07/08 Unknown COMPREHENSIVE METABOLIC 22101 Total Protein 6.2 g/dL Unknown COMPREHENSIVE METABOLIC 99663 Glucose 107 mg/dL 2017 Unknown COMPREHENSIVE METABOLIC 33622 Bicarbonate 22 mmol/L 02/2018 Unknown COMPREHENSIVE METABOLIC 65514 AGAP 10 mmol/L 2017 Unknown GFR CALC 4963009 GFR Non Afr Amr >60 mL/min 11/28/2017 Un known GFR CALC 7538894 GFR Afr Amr >60 mL/min 11/28/2017 Unknow n THYROID STIMULATING HORMONE 56146 TSH 4.029 uIU/mL 11/28/2017 Unknown LIPID GROUP 86987 Cholesterol 181 mg/dL 11/28/2017 Unkno wn LIPID GROUP 35726 Triglyceride 193 mg/dL 11/28/2017 Unkn own LIPID GROUP 82336 HDL CHOLESTEROL 36 11/28/2017 U nknown LIPID GROUP 07359 Chol/HDL Ratio 5.03 ratio 11/28/2017 U nknown LIPID GROUP 89808 NON-HDL Chol 145 mg/dL 11/28/2017 Unkn own LIPID GROUP 32296 LDL Cholesterol 106 mg/dL 11/28/2017 U nknown PT 1629520 PT 22.2 Seconds 11/28/2017 Unknow n PT 9285737 INR 2.0 11/28/2017 Unknown COMPREHENSIVE METABOLIC 40266 AST 19 U/L 2017 Unknown COMPREHENSIVE METABOLIC 30914 ALT 16 U/L 2017 Unknown COMPREHENSIVE METABOLIC 60949 BUN 22 mg/dL 2017 Unknown COMPREHENSIVE METABOLIC 33050 ALBUMIN 4.1 g/dL 2017 Unknown COMPREHENSIVE METABOLIC 06906 CHLORIDE 108 mmol/L 11/28 Unknown COMPREHENSIVE METABOLIC 70961 Bili Total 0.5 mg/dL 11/28 Unknown COMPREHENSIVE METABOLIC 07997 ALK PHOS 53 U/L 2017 Unknown COMPREHENSIVE METABOLIC 07533 SODIUM 141 mmol/L 11/28 Unknown COMPREHENSIVE METABOLIC 99573 CREATININE 0.83 mg/dL 11/05 Unknown COMPREHENSIVE METABOLIC 33852 CALCIUM 9.1 mg/dL 2017 Unknown COMPREHENSIVE METABOLIC 43960 POTASSIUM 4.6 mmol/L 11/28 Unknown COMPREHENSIVE METABOLIC 63518 Total Protein 6.5 g/dL Unknown COMPREHENSIVE METABOLIC 84354 Glucose 106 mg/dL 2017 Unknown COMPREHENSIVE METABOLIC 70869 Bicarbonate 26 mmol/L 11/05 Unknown COMPREHENSIVE METABOLIC 77930 AGAP 7 mmol/L 2017 Unknown COMPLETE BLOOD COUNT 1192090 WBC 5.1 10e9/L 11/28/19 18 Unknown COMPLETE BLOOD COUNT 7461689 RBC 4.22 10e12/L 2017 Unknown COMPLETE BLOOD COUNT 3416200 HEMOGLOBIN 13.5 g/dL 11/28/19 18 Unknown COMPLETE BLOOD COUNT 3393566 HEMATOCRIT 39.1 % 11/28/19 18 Unknown COMPLETE BLOOD COUNT 7697507 MCV 92.7 fL 8 Unknown COMPLETE BLOOD COUNT 2669104 MCH 32.0 pg 8 Unknown COMPLETE BLOOD COUNT 8817017 MCHC 34.5 g/dL 8 Unknown COMPLETE BLOOD COUNT 4531211 PLATELET COUNT 226 10e9/L Unknown COMPLETE BLOOD COUNT 2066100 Mean Plt Volume 9.6 fL Unknown COMPLETE BLOOD COUNT 0761015 Neut Auto 49.5 % 8 Unknown COMPLETE BLOOD COUNT 0509109 Lymph Auto 35.3 % 11/28/19 18 Unknown COMPLETE BLOOD COUNT 1534603 Johnson Auto 12.4 % 8 Unknown COMPLETE BLOOD COUNT 3696246 Eos Auto 2.2 % 8 Unknown COMPLETE BLOOD COUNT 4070903 RDW 12.4 % 8 Unknown COMPLETE BLOOD COUNT 7009881 Baso Auto 0.6 % 8 Unknown COMPLETE BLOOD COUNT 9366612 Neutrophil Abs 2.52 10e9/L Unknown COMPLETE BLOOD COUNT 9871495 Lymphocyte Abs 1.80 10e9/L Unknown COMPLETE BLOOD COUNT 9962063 Monocyte Abs 0.63 10e9/L 11/05 Unknown COMPLETE BLOOD COUNT 6278599 Eosinophil Abs 0.11 10e9/L Unknown COMPLETE BLOOD COUNT 1961211 RDW-SD 41.2 fL 8 Unknown COMPLETE BLOOD COUNT 2456524 Basophil Abs 0.03 10e9/L 11/05 Unknown Procedures Procedure Codes Date SARSCOV & INF VIR A&B AG IA CPT-4: 10353 10/04/2021 FLU VACC PRSV FREE INC ANTIG 65 AND OLDER CPT-4: 49682 08/18/2021 FLU VACC PRSV FREE INC ANTIG 65 AND OLDER CPT-4: 76338 08/18/2021 ADMIN INFLUENZA VIRUS VAC CPT-4: G0008 08/18/2021 ROUTINE VENIPUNCTURE CPT-4: 94900 07/05/2021 PROTHROMBIN TIME CPT-4: 56599 07/05/2021 PPPS, subseq visit CPT-4: G0439 10/12/2020 ROUTINE VENIPUNCTURE CPT-4: 47810 04/06/2020 COMPREHEN METABOLIC PANEL CPT-4: 96101 04/06/2020 COMPLETE CBC W/AUTO DIFF WBC CPT-4: 10288 04/06/2020 PROTHROMBIN TIME CPT-4: 69903 04/06/2020 PPPS, subseq visit CPT-4: G0439 09/02/2019 ROUTINE VENIPUNCTURE CPT-4: 58078 09/02/2019 PROTHROMBIN TIME CPT-4: 57752 09/02/2019 FLU VACC PRSV FREE INC ANTIG 65 AND OLDER CPT-4: 19479 08/20/2018 PNEUMOCOCCAL VACC 23 BRIDGET IM CPT-4: 98604 08/20/2018 ADMIN INFLUENZA VIRUS VAC CPT-4: G0008 08/20/2018 ADMIN PNEUMOCOCCAL VACCINE CPT-4: G0009 08/20/2018 PPPS, subseq visit CPT-4: G0439 11/27/2017 FLU VACC PRSV FREE INC ANTIG 65 AND OLDER CPT-4: 57009 08/14/2017 PNEUMOCOCCAL VACC 13 BRIDGET IM CPT-4: 68871 08/14/2017 ADMIN INFLUENZA VIRUS VAC CPT-4: G0008 08/14/2017 ADMIN PNEUMOCOCCAL VACCINE CPT-4: G0009 08/14/2017 FLU VACC PRSV FREE INC ANTIG 65 AND OLDER CPT-4: 95104 10/03/2016 ADMIN INFLUENZA VIRUS VAC CPT-4: G0008 10/03/2016 PPPS, subseq visit CPT-4: G0439 10/10/2015 FLUZONE, 5ML (Medicare) CPT-4: Q2038 09/01/2014 ADMIN INFLUENZA VIRUS VAC CPT-4: G0008 09/01/2014 Vital Signs Date Vital 07/05/2021 Blood Pressure 1: 122/80 Code: 8480-6 Heart Rate 1: 92 bpm Respiratory Rate: 20 bpm SpO2: 96% Temperature: 36.8 (C) / 98.2 (F) We ight: 207 lbs Code: 31338-5 04/26/2021 Blood Pressure 1: 126/82 Code: 8480-6 Heart Rate 1: 104 bpm Respiratory Rate: 20 bpm SpO2: 96% Temperature: 36.7 (C) / 98.1 (F) We ight: 212 lbs Code: 89289-8 10/12/2020 Blood Pressure 1: 104/68 Code: 8480-6 BMI: 31.6 Code: 30768-4 Heart Rate 1: 96 bpm Height: 5'7" Code: 8302-2 Respiratory Rate: 20 bpm SpO2: 95% Temperature: 36.9 (C) / 98.5 (F) Weight: 202 lbs Code: 32664-7 07/13/2020 Blood Pressure 1: 128/72 Code: 8480-6 Heart Rate 1: 76 bpm Respiratory Rate: 18 bpm SpO2: 97% Temperature: 36.3 (C) / 97.3 (F) We ight: 190 lbs Code: 45001-6 04/06/2020 Blood Pressure 1: 106/68 Code: 8480-6 BMI: 29.1 Code: 80785-2 Heart Rate 1: 96 bpm Height: 5'7" Code: 8302-2 Respiratory Rate: 20 bpm SpO2: 96% Temperature: 36.8 (C) / 98.2 (F) Weight: 186 lbs Code: 14296-9 09/02/2019 Blood Pressure 1: 94/50 Code: 8480-6 BMI: 29.8 C ode: 60178-9 Heart Rate 1: 68 bpm Height: 5'7" Code: 8302-2 Respiratory Rate: 20 bpm SpO2: 96% Temperature: 36.6 (C) / 97.9 (F) Weight: 190 lbs Code: 35937-3 07/01/2019 Blood Pressure 1: 112/60 Code: 8480-6 Heart Rate 1: 88 bpm Respiratory Rate: 20 bpm SpO2: 94% Temperature: 36.8 (C) / 98.2 (F) We ight: 201 lbs Code: 35250-8 05/27/2019 Blood Pressure 1: 104/50 Code: 8480-6 Heart Rate 1: 62 bpm SpO2: 95% Temperature: 36.3 (C) / 97.4 (F) Weight: 204 lbs Code: 00758-6 04/22/2019 Blood Pressure 1: 112/72 Code: 8480-6 Heart Rate 1: 64 bpm Respiratory Rate: 20 bpm SpO2: 95% Temperature: 36.8 (C) / 98.2 (F) We ight: 207 lbs Code: 99979-1 02/09/2019 Blood Pressure 1: 104/60 Code: 8480-6 Heart Rate 1: 72 bpm Respiratory Rate: 20 bpm SpO2: 95% Temperature: 37.1 (C) / 98.8 (F) We ight: 216 lbs Code: 81609-3 01/07/2019 Blood Pressure 1: 122/74 Code: 8480-6 Heart Rate 1: 96 bpm Respiratory Rate: 20 bpm SpO2: 96% Temperature: 36.7 (C) / 98.1 (F) We ight: 219 lbs Code: 77102-5 07/09/2018 Blood Pressure 1: 118/65 Code: 8480-6 Heart Rate 1: 62 bpm SpO2: 94% Temperature: 36.2 (C) / 97.1 (F) Weight: 237 lbs Code: 74837-2 11/27/2017 Blood Pressure 1: 124/70 Code: 8480-6 BMI: 35.2 Code: 20473-6 Heart Rate 1: 64 bpm Height: 5'8" Code: 8302-2 Respiratory Rate: 20 bpm SpO2: 94% Temperature: 36.9 (C) / 98.5 (F) Weight: 235 lbs Code: 18841-0 10/10/2015 Blood Pressure 1: 126/78 Code: 8480-6 BMI: 36.0 Code: 97096-6 Heart Rate 1: 72 bpm Height: 5'8" Code: 8302-2 Respiratory Rate: 20 bpm Temperatu re: 36.9 (C) / 98.4 (F) Weight: 240 lbs Code: 83348-5 09/01/2014 Blood Pressure 1: 114/70 Code: 8480-6 BMI: 35.4 Code: 28021-5 Heart Rate 1: 76 bpm Height: 5'8" Code: 8302-2 Respiratory Rate: 20 bpm Temperatu re: 36.7 (C) / 98.1 (F) Weight: 236 lbs Code: 66187-1 07/02/2013 Blood Pressure 1: 124/90 Code: 8480-6 BMI: 33.7 Code: 66685-6 Heart Rate 1: 76 bpm Height: 5'8" Code: 8302-2 Respiratory Rate: 20 bpm Temperatu re: 36.6 (C) / 97.8 (F) Weight: 225 lbs Code: 44472-9 06/25/2012 Blood Pressure 1: 144/100 Code: 8480-6 BMI: 34.5 Code: 56553-7 Heart Rate 1: 76 bpm Height: 5'8" Code: 8302-2 Respiratory Rate: 20 bpm Temperatu re: 36.6 (C) / 97.9 (F) Weight: 230 lbs Code: 56360-7 05/15/2012 Blood Pressure 1: 112/70 Code: 8480-6 BMI: 34.6 Code: 82605-5 Heart Rate 1: 76 bpm Height: 5'8" Code: 8302-2 Respiratory Rate: 20 bpm Temperatu re: 37.0 (C) / 98.6 (F) Weight: 231 lbs Code: 45752-7 12/06/2011 Blood Pressure 1: 142/90 Code: 8480-6 BMI: 35.4 Code: 40363-8 Heart Rate 1: 72 bpm Height: 5'8" Code: 8302-2 Respiratory Rate: 20 bpm Temperatu re: 36.9 (C) / 98.4 (F) Weight: 236 lbs Code: 36496-0 10/30/2010 Blood Pressure 1: 114/78 Code: 8480-6 Heart Rate 1: 76 bpm Temperature: 36.3 (C) / 97.4 (F) Weight: 228 lbs Code: 41233-9 Functional Status No Functional Status data Reason [...] COVID-19 virus[ICD10: Z20.822] Arlyn FAUSTIN RmDiane JULIO [facility]io CPT-4: 82927 10/04/2021 ([id number]) NURSE/OUTPATIENT VISIT EST Diagnosis: FLU VACCINE[ICD10: Z23] Arlyn CRAMERQUELINE RmDiane BRAYDON MOSQUERA [facility]io CPT-4: 88202 08/18/2021 ([id number]) OFFICE/OUTPATIENT VISIT EST Diagnosis: Parkinson disease[ICD10: G20] Diagnosis: FCI (current) use of anticoagulants[ICD10: Z79.01] Arlyn Ellisjerryestella ARLYN RmDiane JULIO [facility] CPT-4: 65505 07/05/2021 ([id number]) OFFICE/OUTPATIENT VISIT EST Diagnosis: Parkinson disease[ICD10: G20] Diagnosis: Dementia[ICD10: F03.90] Arlyn FAUSTIN RmDiane BRAYDON MOSQUERA [facility] CPT-4: 93989 04/26/2021 ([id number]) OFFICE/OUTPATIENT VISIT EST Diagnosis: 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] Diagnosis: 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: G30.9] Arlyn FAUSTIN RmDiane JULIO [facility]io CPT-4: 61733 07/13/2020 ([id number]) OFFICE/OUTPATIENT VISIT EST Diagnosis: Alzheimer's disease, unspecified[ICD10: G30.9] Arlyn LOPEZ [facility] CPT-4: 98376 04/06/2020 ([id number]) OFFICE/OUTPATIENT VISIT EST Diagnosis: Alzheimer's disease with late onset[ICD10: G30.1] Diagnosis: Generalized anxiety disorder[ICD10: F41.1] Diagnosis: Unspecified dementia with behavioral disturbance[ICD10: F03.91] Arlyn Corraljerryestella FERMINARLYN RmDiane JULIO [facility] CPT-4: 33025 07/01/2019 ([id number]) OFFICE/OUTPATIENT VISIT EST Diagnosis: Alzheimer's disease with late onset[ICD10: G30.1] Diagnosis: Abnormal weight loss[ICD10: R63.4] Diagnosis: Essential (primary) hypertension[ICD10: I10] Diagnosis: Melena[ICD10: K92.1] Diagnosis: Unspecified dementia with behavioral disturbance[ICD10: F03.91] Diagnosis: Spontaneous ecchymoses[ICD10: R23.3] Arlyn Ellisjerryestella JENY KALEY Krish BRYSON [facility] CPT-4: 23848 05/27/2019 ([id number]) OFFICE/OUTPATIENT VISIT EST Diagnosis: 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] Diagnosis: Alzheimer's disease with late onset[ICD10: G30.1] Diagnosis: Melena[ICD10: K92.1] Diagnosis: Abnormal weight loss[ICD10: R63.4] Arlyn VENEGAS Krish LOPEZ [facility] CPT-4: 74845 04/22/2019 ([id number]) OFFICE/OUTPATIENT VISIT EST Diagnosis: 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] Diagnosis: Slow transit constipation[ICD10: K59.01] Diagnosis: Unspecified dementia with behavioral disturbance[ICD10: F03.91] Arlyn FAUSTIN RmDiane JULIO [facility] CPT-4: 77446 02/09/2019 ([id number]) OFFICE/OUTPATIENT VISIT EST Diagnosis: Alzheimer's disease with late onset[ICD10: G30.1] Diagnosis: 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] Diagnosis: Nocturia[ICD10: R35.1] Diagnosis: Constipation, unspecified[ICD10: K59.00] Arlyn LOPEZ [facility] CPT-4: 32978 01/07/2019 ([id number]) NURSE/OUTPATIENT VISIT EST Diagnosis: FLU VACCINE[ICD10: Z23] Diagnosis: PNEUMOCOCCAL VACCINE[ICD10: Z23] Arlyn LOPEZ [facility] CPT-4: 82122 08/20/2018 ([id number]) OFFICE/OUTPATIENT VISIT EST Diagnosis: Mixed hyperlipidemia[ICD10: E78.2] Diagnosis: Essential (primary) hypertension[ICD10: I10] Diagnosis: Alzheimer's disease, unspecified[ICD10: G30.9] Arlyn LOPEZ [facility] CPT-4: 08247 07/09/2018 ([id number]) OFFICE/OUTPATIENT VISIT EST Diagnosis: PNEUMOCOCCAL VACCINE[ICD10: Z23] Diagnosis: FLU VACCINE[ICD10: Z23] Arlyn MOSQUERA [facility] CPT-4: 63651 08/14/2017 ([id number]) OFFICE/OUTPATIENT VISIT EST Diagnosis: FLU VACCINE[ICD10: Z23] Arlyn MOSQUERA [facility] CPT-4: 67243 10/03/2016 ([id number]) OFFICE/OUTPATIENT VISIT EST Diagnosis: HYPERTENSION[ICD9: 401.9] Diagnosis: HYPERLIPIDEMIA NEC/NOS[ICD9: 272.4] Diagnosis: MEMORY LOSS[ICD9: 780.93] Diagnosis: - I - ANXIETY STATE NOS[ICD9: 300.00] Diagnosis: FLU VACCINE[ICD10: Z23] Arlyn MOSQUERA [facility] CPT-4: 43540 09/01/2014 OFFICE/OUTPATIENT VISIT EST Diagnosis: HYPERTENSION[ICD9: 401.9] Diagnosis: CAD[ICD9: 414.00] Diagnosis: HYPERLIPIDEMIA NEC/NOS[ICD9: 272.4] Diagnosis: MEMORY LOSS[ICD9: 780.93] Diagnosis: ANXIETY STATE NOS[ICD9: 300.00] Diagnosis: Testicular pain[ICD9: 608.9] Arlyn LOPEZ [facility] CPT-4: 57412 07/02/2013 ([id number]) OFFICE/OUTPATIENT VISIT EST Diagnosis: MEMORY LOSS[ICD9: 780.93] Arlyn FAUSTIN RmDiane ELLIS NDER [facility] CPT-4: 14326 06/25/2012 ([id number]) OFFICE/OUTPATIENT VISIT EST Diagnosis: HYPERLIPIDEMIA NEC/NOS[ICD9: 272.4] Diagnosis: HYPERTENSION[ICD9: 401.9] Diagnosis: CAD[ICD9: 414.00] Diagnosis: MEMORY LOSS[ICD9: 780.93] Arlyn FAUSTIN RmDiane ELLIS NDER [facility] CPT-4: 93176 05/15/2012 PER PM REEVAL EST PAT 65+ YR Diagnosis: ROUTINE MEDICAL EXAM[ICD9: V70.0] Diagnosis: HYPERLIPIDEMIA NEC/NOS[ICD9: 272.4] Diagnosis: HYPERTENSION[ICD9: 401.9] Diagnosis: CAD[ICD9: 414.00] Diagnosis: Seborrheic dermatitis[ICD9: 690.10] Arlyn Rutherford [facility] CPT-4: 99275 12/06/2011 ([id number]) OFFICE/OUTPATIENT VISIT, EST Arlyn GENTILE RmDiane JULIO [facility] CPT-4: 98350 10/30/2010 Plan of Care Planned Activity Notes Codes Status Date Appointment: Arlyn Lopezl: [address] [place], [place] [phone] US LAB 10/04/2021 Appointment: Arlyn Lopez WPtel: [address] [place], [place] [phone] Immunizations 08/18/2021 Visit Diagnosis Plan: Parkinson disease Discussion: In crease sinemet 25/100mg 2po BID Call in 1month ICD-9 : 332.0 ICD-10 : G20 07/05/2021 Visit Diagnosis Plan: [facility]CI (current) use of antic oagulants Discussion: PT/INR drawn ICD-9 : V58.61 ICD-10 : Z79.01 07/05/2021 Appointment: Arlyn Lopez WPtel: [address] [place], [place] [phone] US FOLLOW UP 07/05/2021 Visit Diagnosis Plan: Parkinson disease Discussion: Tr ial of sinemet 25/100mg po BID Fwup 2mos ICD-9 : 332.0 ICD-10 : G20 04/26/2021 Appointment: Arlyn Lopez WPtel: [address] [place], [place] [id number] US FOLLOW UP 04/26/2021 Appointment: Arlyn Lopez WPtel: [address] [place], [place] [id number] US CANCELED 01/11/2021 Visit Diagnosis Plan: Encounter for [facility] [place] adult medical examination without abnormal findings Discussion: [...] ICD-10 : G30.1 10/12/2020 Visit Diagnosis Plan: [facility]CI (current) use of antic oagulants Discussion: Update PT/INR ICD-9 : V58.61 ICD-10 : Z79.01 10/12/2020 Appointment: Arlyn Lopez WPtel: [address] [place], [place] [phone] [place] Annual Well Visit 10/12/2020 Visit Diagnosis [...] : F02.81 07/13/2020 Appointment: Arlyn Lopez WPtel: [address] [place], [place] [id number] US FOLLOW UP 07/13/2020 Care Plan: PT Pending 06/27/2020 Visit Diagnosis Plan: Alzheimer's disease, unspecified Discussion: Worsening has started OTC supplements Inquiring about meals on wheels Follow Up: 3 months ICD-9 : 331.0 ICD-10 : G30.9 04/06/2020 Appointment: [facility] Lopez [facility]el[facility] [phone] [id number] [facility] 04/06/2020 Care Plan: Referral Order SNOMED-CT : [id number] Pending 04/06/2020 Appointment: Arlyn Lopez WPtel: [phone] [facility] US RESCHEDULED 02/24/2020 Care Plan: COMPREH[place] METAB[place] : 04897-7 Pending 12/14/2019 Care Plan: LIPID PANEL LOINC : 69757-0 Pending 12/14/2019 Care Plan: PT Pending 12/14/2019 [...] Z51.81 09/02/2019 Appointment: Arlyn Lopez WPtel[facility] [phone] [id number] [facility] 2 mo follow up Annual Well Visit 08/06 Visit Diagnosis Plan: Generalized anxiety disorder Dis cussion: Depakote already helping Follow Up: 2 months ICD-9 : 300.00 ICD-10 : F41.1 07/01/2019 Appointment: Arlyn Lopez WPtel: [address] [place] [address] US FOLLOW UP 07/01/2019 Visit Diagnosis Plan: [...] : K92.1 05/27/2019 Appointment: Arlyn Lopez WPtel: [address] [place] [address] US FOLLOW UP 05/27/2019 Visit Diagnosis Plan: [...] ICD-10 : F51.04 04/22/2019 Appointment: Arlyn Lopeztel: [address] [place] [address] US FOLLOW UP 04/22/2019 Visit Diagnosis Plan: [...] : K59.01 02/09/2019 Appointment: Arlyn Lopez WPtel: [facility] [place] FO[place] UP 02/09/2019 Patient Education: escitalopram oxalate- [employer] [id number] Completed 02/09/2019 Patient Education: doxepin- [employer] [id number] Completed 02/09/2019 Visit Diagnosis Plan: Nocturia Discussion: [...] : F51.04 01/07/2019 Appointment: Arlyn Lopez WPtel: [facility] [place] FOLLOW UP 01/07/2019 Patient Education: tamsulosin- [employer] [id number] Completed 01/07/2019 Patient Education: doxepin- [employer] [id number] Completed 01/07/2019 Care Plan: COMPREH[place] METAB[place] : 97420-5 Pending 12/17/2018 Care Plan: CBC Pending 12/17/2018 Care Plan: LIPID PANEL LOINC : 68769-5 Pending 12/17/2018 Appointment: Arlyn Lopez WPtel: [phone] [facility] [place] [place] INJECTION 08/20/2018 Patient Education: Patient Medication [...] : I10 07/09/2018 Appointment: Arlyn Lopez WPtel: [facility] FOLLOW UP 07/09/2018 Patient Education: Patient Medication Summary Completed 07/09/2018 Visit Diagnosis Plan: Generalized anxiety disorder Dis cussion: Add lexapro 10mg q HS ICD-9 : 300.00 ICD-10 : F41.1 11/27/2017 Visit Diagnosis Plan: Alzheimer's disease, unspecified Discussion: Change Namenda XR to Namenda 10mg po BI Follow Up: 3 months ICD-9 : 331.0 ICD-10 : G30.9 11/27/2017 Visit Diagnosis Plan: Encounter for [facility] medical examination without abnormal findings Discussion: Update fasting lab ICD-9 : V70.0 ICD-10 : Z00.00 11/27/2017 Appointment: Arlyn Lopez WPtel: [phone] [facility] [place] Annual Well Visit 11/27/2017 Patient Education: Patient Medication Summary Completed 11/27/2017 Patient Education: Patient Medication Summary Completed 11/14/2017 Care Plan: CBC Pending 11/14/2017 Care Plan: PT Pending 11/14/2017 Care Plan: COMPREHEN METABOLIC PANEL [place] : [id number] Pending 11/14/2017 Care Plan: LIPID PANEL LOINC : [id number] Pending 11/14/2017 Care Plan: ASSAY THYROID STIM HORMONE Pen ding 11/14/2017 Appointment: Arlyn Lopez WPtel: [address] [place], [place] [phone] [place] INJECTION 08/14/2017 Patient Education: Patient Medication Summary Completed 08/14/2017 Appointment: Arlyn Lopez WPtel: [address] [place], [place] [phone] [place] INJECTION 10/03/2016 Patient Education: Patient Medication Summary Completed 10/03/2016 Patient Education: Patient Medication Summary Completed 01/02/2016 Care Plan: CBC Ordered 01/02/2016 Visit Plan: Check fasting lab with next PT/INR Continue current meds Discussed trial of PPI but states gaviscon works if will take so will just try it 10/10/2015 Appointment: Arlyn Lopez WPtel: [address] [place], [place] [id number] 10/07/15 appt confirmed cn Annual Well Visit 05/2015 Patient Education: Patient Medication Summary Completed 10/10/2015 Appointment: Arlyn Lopez WPtel: [address] [place] [address] 08/31 no answer cell # 08/31 vm 2nd # FOLLOW UP 09/01/2014 Patient Education: Patient Medication Summary Completed 09/01/2014 Patient Education: Patient Medication Summary Completed 08/23/2014 Visit Plan: Lab discussed Check testicul ar US Change namenda to Namenda XR 23mg QD Check PSA 07/02/2013 Appointment: Arlyn Lopez WPtel: [address] [place], [place] [phone] ACUTE ILLNESS 07/02/2013 Patient Education: Patient Medication Summary Completed 07/02/2013 Visit Plan: Continue namenda 10mg po BID Discussed aricept 06/25/2012 Appointment: Arlyn Lopez WPtel: [address] [place], [place] [phone] [place] confirmed w ACUTE ILLNESS 06/25/2012 Patient Education: Patient Medication Summary Completed 06/25/2012 Appointment: Arlyn Lopez WPtel: [address] [place] [address] [place] FOLLOW UP 05/15/2012 Patient Education: Patient Medication Summary Completed 05/15/2012 Visit Plan: Continue current meds Lab di scussed Long discussion about meds, diet, exercise and weight loss for decreasing TG and elevating HDL Add Nystatin/TAC cream to use prn 12/06/2011 Appointment: Arlyn Lopez WPtel: [address] [place] [address] CHECK UP 12/06/2011 Patient Education: Patient Medication Summary Completed 12/06/2011 Visit Plan: Check fasting lab--CMP, lipi ds, PSA, PT/INR Loan deferment paperwork filled out 10/30/2010 Appointment: Arlyn Lopez WPtel: [address] [place] [address] [place] ESTABLISHED PATIENT 10/30/2010 Patient Education: Patient Medication Summary Completed 10/30/2010 Referral: Angeline Arellano WPtel: [address] [place] [address] [place] Referral Appointment Requested Instructions Comment . [...]
--- OUTSIDE RECORDS SUMMARY | 2021-10-12 10:16 | XMS REPORT | CCD ---
Author Author Ronnie Lopez D.O. Organization [facility] Address [address] [place] [address] Phone Care Team Providers Care Wrapping Checker Name Role Phone Arlyn Lopez D.O., PP Unavailable CCM Unavailable Summary Purpose Interface Exchange Insurance Providers Payer name Policy type / Coverage type Covered alliance party ID Effective Begin Date Effective End Date [employer] Medicare [id number] Unknown Family History Family History data not found Social History Social History Element Codes Description Effective Dates Marital status Unknown 12/06/[address]: 3666261 Former smoker 2000 12/06/2011 Allergies, Adverse Reactions, [...] VACCINE ICD-10: Z23 ICD-9: V04.81 10/02/2016 Active FDC (current) use of anticoagulants ICD-10: Z79. 01 [...] 788.43 01/07/2019 Active Atherosclerotic heart disease of [place] coronary arter y without angina pectoris ICD-10: [...] Fill Instructions memantine 10 mg tablet RxNorm: 207200 TAKE 1 TABLET TWI CE DAILY (REPLACES NAMENDA XR) 10/04/2021 04/01/2022 Active escitalopram 20 mg tablet RxNorm: 610335 TAKE 1 TABLET AT BEDTIME 1 12/05/2020 04/01/2022 Active warfarin 2 mg tablet RxNorm: 582111 TAKE 1 AND 1/2 TABL ETS ON SATURDAY, SATURDAY, SATURDAY, SATURDAY AND TAKE 2 TABLETS ON SATURDAY, SATURDAY AND Saturday08/23/2021 11/20/2021 Active tamsulosin 0.4 mg capsule RxNorm: 143982 TAKE 1 CAPSULE EVERY DAY 0 06/26/2021 09/23/2021 Inactive carbidopa 25 mg-levodopa 100 mg tablet RxNorm: 118205 T PHAM 1 TABLET TWICE DAILY FOR TREMORS 06/26/2021 07/04/2021 Inactive memantine 10 mg tablet RxNorm: 882686 TAKE 1 TABLET TWI CE DAILY (REPLACES NAMENDA XR) 06/26/2021 06/26/2021 Inactive escitalopram 20 mg tablet RxNorm: 865874 TAKE 1 TABLET AT BEDTIME 0 06/26/2021 06/26/2021 Inactive warfarin 2 mg tablet RxNorm: 837759 TAKE 1 AND 1/2 TABL ETS ON SATURDAY, SATURDAY, SATURDAY, SATURDAY AND TAKE 2 TABLETS ON SATURDAY, SATURDAY AND Saturday06/26/2021 06/26/2021 Inactive Sinemet 25 mg-100 mg tablet RxNorm: 783439 Take 1 Table t(s) Oral two times a day for tremors 04/26/2021 04/26/2021 Inactive memantine 10 mg tablet RxNorm: 312639 TAKE 1 TABLET TWI CE DAILY (REPLACES NAMENDA XR) 04/12/2021 04/12/2021 Inactive warfarin 2 mg tablet RxNorm: 393694 2 Tablet(s) Oral Mo through Saturday and 1.5 tablets on Saturday/Saturday01/19/2021 No Stop Date Active tamsulosin 0.4 mg capsule RxNorm: 529697 TAKE 1 CAPSULE EVERY DAY 0 12/19/2020 12/19/2020 Inactive warfarin 2 mg tablet RxNorm: 736266 TAKE 1 AND 1/2 TABL ETS ON SATURDAY, SATURDAY, SATURDAY, SATURDAY AND TAKE 2 TABLETS ON SATURDAY, SATURDAY AND Saturday12/12/2020 01/18/2021 Inactive escitalopram 20 mg tablet RxNorm: 686286 TAKE 1 TABLET AT BEDTIME 0 11/28/2020 11/28/2020 Inactive Namenda 10 mg tablet RxNorm: 155544 TAKE 1 TABLET TWICE DAILY (REPLACES NAMENDA XR) 10/17/2020 10/17/2020 Inactive melatonin 10 mg capsule RxNorm: 642028 1 Capsule(s) Oral QD 020 No Stop Date Active tamsulosin 0.4 mg capsule RxNorm: 570922 TAKE 1 CAPSULE EVERY DAY 1 12/18/2020 Inactive warfarin 2 mg tablet RxNorm: 836911 TAKE 1 AND 1/2 TABL ETS ON SATURDAY, SATURDAY, SATURDAY, SATURDAY AND TAKE 2 TABLETS ON SATURDAY, SATURDAY AND Saturday07/12/2020 12/11/2020 Inactive warfarin 2 mg tablet RxNorm: 519871 TAKE 1 AND 1/2 TABL ETS ON SATURDAY, SATURDAY, SATURDAY, SATURDAY AND TAKE 2 TABLETS ON SATURDAY, SATURDAY AND Saturday06/27/2020 07/11/2020 Inactive Namenda 10 mg tablet RxNorm: 049193 TAKE 1 TABLET TWICE DAILY (REPLACES NAMENDA XR) 04/18/2020 10/16/2020 Inactive tamsulosin 0.4 mg capsule RxNorm: 463486 1 Capsule(s) Oral QD 02/1108/10/2020 Inactive Depakote ER 250 mg tablet,extended release RxNorm: 4183413 1 Tab let(s) Oral QPM 01/21/2020 04/20/2020 Inactive warfarin 2 mg tablet RxNorm: 173403 TAKE 1 AND 1/2 TABL ETS ON SATURDAY, SATURDAY, SATURDAY AND SATURDAY AND TAKE 2 TABLETS ON SATURDAY, SATURDAY AND Saturday12/14/2019 06/26/2020 Inactive escitalopram 20 mg tablet RxNorm: 623934 TAKE 1 TABLET AT BEDTIME 0 11/16/2019 11/27/2020 Inactive Namenda 10 mg tablet RxNorm: 455324 TAKE 1 TABLET TWICE DAILY (REPLACES NAMENDA XR) 10/08/2019 04/17/2020 Inactive tamsulosin 0.4 mg capsule RxNorm: 346426 1 Capsule(s) Oral QD 09/0202/11/2020 Inactive warfarin 2 mg tablet RxNorm: 786859 1.5 Tablet(s) PO on , Th, Sat, and Sun and 2 tablets on Sat, Sat, Sat07/13/2019 07/12/2019 Inactive Depakote ER 250 mg tablet,extended release RxNorm: 2881607 1 Tab let(s) PO BID 06/08/2019 09/05/2019 Inactive pravastatin 80 mg tablet RxNorm: 053382 TAKE 1 TABLET EVERY DAY 11/201809/01/2019 Inactive warfarin 2 mg tablet RxNorm: 597213 TAKE 1 AND 1/2 TABS ON SATURDAY,SATURDAY AND SATURDAY AND TAKE 2 TABS ON , TH, SAT AND SUN (NEED MD APPOINTMENT) 03/09/2019 07/13/2019 Inactive Namenda 10 mg tablet RxNorm: 802823 TAKE 1 TABLET TWICE DAILY (REPLACES NAMENDA XR) 02/09/2019 08/07/2019 Inactive doxepin 25 mg capsule RxNorm: 2260441 1 Capsule(s) PO QH S for sleep replaces 10mg dose 02/09/2019 04/21/2019 Inactive escitalopram 20 mg tablet RxNorm: 641888 1 Tablet(s) PO QHS 019 08/07/2019 Inactive tamsulosin 0.4 mg capsule RxNorm: 714689 1 Capsule(s) P O QPM for urinary frequency 01/07/2019 02/12/2020 Inactive divalproex 250 mg tablet,delayed release RxNorm: 2746510 1 Table t(s) PO QHS 01/07/2019 01/07/2019 Inactive doxepin 10 mg capsule RxNorm: 1836837 1-2 Capsule(s) PO QHS as n eeded for sleep 01/07/2019 02/08/2019 Inactive warfarin 2 mg tablet RxNorm: 830062 1 1/2 Tablet(s) PO MWF and 2 tablets on T Th Sat and Sun 12/29/2018 03/08/2019 Inactive metoprolol tartrate 50 mg tablet RxNorm: 892995 TAKE 1 TABLET T WICE DAILY 12/01/2018 06/30/2019 Inactive Namenda 10 mg tablet RxNorm: 654775 TAKE 1 TABLET TWICE DAILY (REPLACES NAMENDA XR) 09/22/2018 02/08/2019 Inactive warfarin 2 mg tablet RxNorm: 917517 1 1/2 Tablet(s) PO MWF and 2 tablets on T Th Sat and Sun 09/02/2018 09/01/2018 Inactive escitalopram 10 mg tablet RxNorm: 831291 1 Tablet(s) PO QHS 018 02/08/2019 Inactive pravastatin 80 mg tablet RxNorm: 276025 1 Tablet(s) PO QD 01/28/2018 10/24/2018 Inactive Namenda 10 mg tablet RxNorm: 812748 1 Tablet(s) PO BID 11/27/2017 Inactive escitalopram 10 mg tablet RxNorm: 860579 1 Tablet(s) PO QHS 018 06/09/2018 Inactive Namenda XR 28 mg capsule sprinkle,extended release RxNorm: 9 39895 TAKE ONE CAPSULE BY MOUTH ONCE DAILY 10/10/2017 11/26/2017 Inactive metoprolol tartrate 50 mg tablet RxNorm: 990641 Tablet( s) TAKE 1 TABLET TWICE DAILY 10/03/2017 09/27/2018 Inactive warfarin 2 mg tablet RxNorm: 947672 Tablet(s) TAKE 2 TA BLETS SATURDAY THROUGH SATURDAY AND 1 TABLET SATURDAY AND Saturday05/09/2017 09/02/2018 Inactive divalproex 250 mg tablet,delayed release RxNorm: 6353211 TAKE 1 TABLET TWICE DAILY 02/19/2017 01/06/2019 Inactive Namenda XR 28 mg capsule sprinkle,extended release RxNorm: 9 12803 TAKE 1 CAPSULE EVERY DAY 02/11/2017 10/09/2017 Inactive pravastatin 80 mg tablet RxNorm: 149169 1 Tablet(s) PO QD 01/21/2017 01/28/2018 Inactive Namenda XR 28 mg capsule sprinkle,extended release RxNorm: 9 66797 TAKE ONE CAPSULE BY MOUTH ONCE DAILY 09/24/2016 02/10/2017 Inactive metoprolol tartrate 50 mg tablet RxNorm: 870771 TAKE 1 TABLET T WICE DAILY 09/10/2016 10/03/2017 Inactive warfarin 2 mg tablet RxNorm: 374324 TAKE 2 TABLETS THROUGH SATURDAY AND 1 TABLET SATURDAY AND Saturday2016 05/09/2017 Inactive divalproex 250 mg tablet,delayed release RxNorm: 0425787 1 Table t(s) PO QHS 12/19/2015 12/12/2016 Inactive pravastatin 80 mg tablet RxNorm: 478334 1 Tablet(s) PO QD 12/19/2015 01/21/2017 Inactive Namenda XR 28 mg capsule sprinkle,extended release RxNorm: 9 59880 1 Capsule(s) PO QD 11/11/2015 09/23/2016 Inactive divalproex 250 mg tablet,delayed release RxNorm: 1930645 1 Table t(s) PO QHS 10/10/2015 12/19/2015 Inactive Namenda XR 28 mg capsule sprinkle,extended release RxNorm: 9 50774 1 Capsule(s) PO QD TAKE 1 CAPSULE EVERY DAY 11/09/2014 11/11/2015 Inactive Namenda XR 28 mg capsule sprinkle,ER 24hr RxNorm: 564960 1 PO QD TAKE ONE CAPSULE BY MOUTH ONCE DAILY 10/07/2014 11/09/2014 Inactive Namenda XR 28 mg capsule sprinkle,ER 24hr RxNorm: 902372 1 Caps ule(s) PO QD 11/10/2013 10/07/2014 Inactive metoprolol tartrate 50 mg tablet RxNorm: 673267 1 Tablet(s) PO BID 05/14/2013 05/08/2014 Inactive 1BID (REPLACES TOPROL) - [place] E ONE TABLET BY MOUTH TWICE DAILY (REPLACES TOPROL) Ativan 1 mg tablet RxNorm: 733037 1 Tablet(s) PO BID 05/01/201310/09 Inactive as needed for anxiety pravastatin 40 mg tablet RxNorm: 994182 1 Tablet(s) PO QD due for labs in late summer03/26/2013 11/10/2014 Inactive warfarin 2 mg tablet RxNorm: 662523 1 Tablet(s) PO Take 2 tablets by mouth Saturday through Saturday and 1 tablet on Saturday and Saturday10/07/2012 Inactive pravastatin 40 mg tablet RxNorm: 667025 1 Tablet(s) PO QD 08/13/2012 03/26/2013 Inactive metoprolol tartrate 50 mg tablet RxNorm: 045703 1 Tablet(s) PO BID 08/13/2012 05/14/2013 Inactive 1BID (REPLACES TOPROL) - [place] E ONE TABLET BY MOUTH TWICE DAILY (REPLACES TOPROL) warfarin 2 mg tablet RxNorm: 099764 1 Tablet(s) PO QD 08/13/201202/2012 Inactive warfarin 2 mg tablet RxNorm: 495150 Tablet(s) PO 11/07/2011 08/13/2012 Inactive 2QD - TAKE TWO TABLETS BY MOUTH EVERY DAY SATURDAY THROUGH SATURDAY AND 1 TABLET ON SATURDAY AND SATURDAY pravastatin 40 mg tablet RxNorm: 005818 1 Tablet(s) PO QD 10/15/2011 08/13/2012 Inactive Ativan 1 mg tablet RxNorm: 819489 1 Tablet(s) PO BID 10/01/201109/30 Active as needed for anxiety metoprolol tartrate 50 mg tablet RxNorm: 152043 1 Tablet(s) PO BID 08/27/2011 08/13/2012 Inactive 1BID (REPLACES TOPROL) - [place] E ONE TABLET BY MOUTH TWICE DAILY (REPLACES TOPROL) pravastatin 40 mg Tab RxNorm: 098893 1 Tablet(s) PO QD 07/10/201109/2011 Inactive Ativan 1 mg Tab RxNorm: 626773 1 Tablet(s) PO BID 07/02/2011 1 Active as needed for anxiety metoprolol tartrate 50 mg Tab RxNorm: 686963 1 Tablet(s ) PO BID 1BID (REPLACES TOPROL) - TAKE ONE TABLET BY MOUTH TWICE DAILY (REPLACES TOPROL) 03/12/2011 08/26/2011 Inactive Ativan 1 mg Tab RxNorm: 983109 1 Tablet(s) PO BID as needed for anxiety 02/26/2011 02/25/2011 Active warfarin 2 mg Tab RxNorm: 951625 Tablet(s) PO 2QD - T PHAM TWO TABLETS BY MOUTH EVERY DAY SATURDAY THROUGH SATURDAY AND 1 TABLET ON SATURDAY AND Saturday12/18/2010 11/07/2011 Inactive Ativan 1 mg Tab RxNorm: 351691 1 Tablet(s) PO BID PRN for anxiety 0 11/06/2010 01/06/2019 Inactive metoprolol tartrate 50 mg Tab RxNorm: 980507 1 Tablet(s ) PO BID 1BID (REPLACES TOPROL) - TAKE ONE TABLET BY MOUTH TWICE DAILY (REPLACES TOPROL) 09/11/2010 03/12/2011 Inactive Ativan 1 mg Tab RxNorm: 923251 1 Tablet(s) PO BID PRN for anxiety 1 11/06/2010 Inactive warfarin 2 mg Tab RxNorm: 030693 Tablet(s) PO 2QD - T PHAM TWO TABLETS BY MOUTH EVERY DAY SATURDAY THROUGH SATURDAY AND 1 TABLET ON SATURDAY AND Saturday07/24/2010 10/29/2010 Inactive metoprolol tartrate 50 mg Tab RxNorm: 425100 1 Tablet(s) PO QD 01/201009/11/2010 Inactive pravastatin 40 mg Tab RxNorm: 792463 1 Tablet(s) PO QD 06/06/201004/2011 Inactive Warfarin 2 mg Tab RxNorm: 656222 2 Tablet(s) PO QD 2 tablets by mouth Saturday through Saturday, and one tablet by mouth on Saturday and Saturday. 06/06/2010 07/23/2010 Inactive Ativan 1 mg Tab RxNorm: 642607 1 Tablet(s) PO QHS PRN for anxiety 0 06/06/2010 08/27/2010 Inactive Pravastatin 40 mg Tab RxNorm: 403641 1 Tablet(s) PO QD 04/14/201012/2009 Inactive Ativan 1 mg Tab RxNorm: 356383 1 Tablet(s) PO BID PRN for anxiety 0 02/23/2010 06/02/2010 Inactive Probiotic oral RxNorm: 6205 oral 04/07/2020 Active [place] 3 Natural Fish Oil Conc capsule RxNorm: 1 Capsule(s) PO QD 0 11/27/2017 Active turmeric-turmeric root extract oral RxNorm: 8682540 oral 11/27/19 18 Active magnesium oral RxNorm: 6574 oral 04/07/2020 Active Vitamin D3 5,000 unit tablet RxNorm: 310296 1 Tablet(s) PO QD 019 Active warfarin 2 mg tablet RxNorm: 902169 1 Tablet(s) PO QD 08/13/201207/2012 Inactive Ativan 1 mg Tab RxNorm: 880077 1 Tablet(s) PO BID as needed for anxiety 02/26/2011 02/25/2011 Inactive warfarin 2 mg Tab RxNorm: 325493 2 Tablet(s) PO QD saturday06/06/2012 06/05/2012 Inactive Tricor 145 mg Tab RxNorm: 550266 1 Tablet(s) PO QD 12/06/2011 012 Inactive warfarin 4 mg tablet RxNorm: 476685 Tablet(s) PO 11/27/2017 11/26/2017 Inactive warfarin 2 mg Tab RxNorm: 204973 1 Tablet(s) PO QD on saturday and saturday06/06/2012 06/05/2012 Inactive warfarin 2 mg tablet RxNorm: 629594 1.5 Tablet(s) PO on , , Sat, and Sun and 2 tablets on Sat, Sat, Sat07/13/2019 07/12/2019 Inactive pravastatin 80 mg tablet RxNorm: 173621 1 Tablet(s) PO QD 12/19/2015 12/19/2015 Inactive metoprolol tartrate 50 mg tablet RxNorm: 397923 1 Tablet(s) PO QD 1 09/01/2019 Inactive Warfarin 2 mg Tab RxNorm: 865223 Tablet(s) PO 2 table ts by mouth Saturday through Saturday, and one tablet by mouth on Saturday and Saturday. 06/06/2010 08/0 12/2009 Inactive Namenda 10 mg Tab RxNorm: 761172 2 Tablet(s) PO QD 07/02/2013 013 Inactive warfarin 2 mg tablet RxNorm: 849325 1 1/2 Tablet(s) PO MWF and 2 tablets on Sat and Sun 09/02/2018 09/01/2018 Inactive Ativan 1 mg Tab RxNorm: 924409 1 Tablet(s) PO BID PRN for anxiety 0 04/20/2010 04/19/2010 Inactive warfarin 2 mg Tab RxNorm: 372195 Tablet(s) PO take 2 tablets by mouth Sat-Sat and 1 tablet on Saturday and Saturday06/06/2012 06/05/2012 Inactive Depakote ER 250 mg tablet,extended release RxNorm: 7856189 1 Tab let(s) PO BID 11/27/2017 11/26/2017 Inactive warfarin 1 mg Tab RxNorm: 754388 1 Tablet(s) PO on Saturday and Saturday10/30/2010 [...] Code Result Date S ervice Location PT [id number] PT 24.4 Seconds 07/05/2021 Unknow n PT [id number] INR 2.2 07/05/2021 Unknown PT [id number] PT 25.2 Seconds 04/28/2021 Unknow n PT [id number] INR 2.3 04/28/2021 Unknown THYROID STIMULATING HORMONE 70983 TSH 2.271 uIU/mL 04/28/2021 Unknown COMPREHENSIVE METABOLIC 25612 AST 18 U/L 2020 Unknown COMPREHENSIVE METABOLIC 99039 ALT 9 U/L 2020 Unknown COMPREHENSIVE METABOLIC 39052 BUN 17 mg/dL 2020 Unknown COMPREHENSIVE METABOLIC 99644 ALBUMIN 3.8 g/dL 2020 Unknown COMPREHENSIVE METABOLIC 99519 CHLORIDE 108 mmol/L 04/28 Unknown COMPREHENSIVE METABOLIC 82421 Bili Total 0.7 mg/dL 04/28 Unknown COMPREHENSIVE METABOLIC 35704 ALK PHOS 76 U/L 2020 Unknown COMPREHENSIVE METABOLIC 53656 SODIUM 140 mmol/L 04/28 Unknown COMPREHENSIVE METABOLIC 55663 CREATININE 0.83 mg/dL 04/05 Unknown COMPREHENSIVE METABOLIC 27530 CALCIUM 9.5 mg/dL 2020 Unknown COMPREHENSIVE METABOLIC 38977 POTASSIUM 4.1 mmol/L 04/28 Unknown COMPREHENSIVE METABOLIC 76753 Total Protein 6.9 g/dL Unknown COMPREHENSIVE METABOLIC 21898 Glucose 106 mg/dL 2020 Unknown COMPREHENSIVE METABOLIC 36426 Bicarbonate 26 mmol/L 04/05 Unknown COMPREHENSIVE METABOLIC 26443 AGAP 6 mmol/L 2020 Unknown GFR CALC 9163583 GFR Non Afr Amr >60 mL/min 04/28/2021 Un known GFR CALC [id number] GFR Afr Amr >60 mL/min 04/28/2021 Unknow n COMPLETE BLOOD COUNT [id number] WBC 4.6 10e9/L 04/28/20 21 Unknown COMPLETE BLOOD COUNT [id number] RBC 4.39 10e12/L 2020 Unknown COMPLETE BLOOD COUNT [id number] HEMOGLOBIN 14.2 g/dL 04/28/20 21 Unknown COMPLETE BLOOD COUNT [id number] HEMATOCRIT 41.1 % 04/28/20 21 Unknown COMPLETE BLOOD COUNT [id number] MCV 93.6 fL 1 Unknown COMPLETE BLOOD COUNT [id number] MCH 32.3 pg 1 Unknown COMPLETE BLOOD COUNT [id number] MCHC 34.5 g/dL 1 Unknown COMPLETE BLOOD COUNT 1454511 PLATELET COUNT 198 10e9/L Unknown COMPLETE BLOOD COUNT 4164880 Mean Plt Volume 9.3 fL Unknown COMPLETE BLOOD COUNT 6759140 Neut Auto 54.8 % 1 Unknown COMPLETE BLOOD COUNT [id number] Lymph Auto 33.7 % 04/28/20 21 Unknown COMPLETE BLOOD COUNT [id number] [place] Auto 9.6 % 1 Unknown COMPLETE BLOOD COUNT [id number] RDW 12.2 % 1 Unknown COMPLETE BLOOD COUNT 0995363 Eos Auto 1.7 % 1 Unknown COMPLETE BLOOD COUNT [id number] Baso Auto 0.2 % 1 Unknown COMPLETE BLOOD COUNT [id number] Neutrophil Abs 2.52 10e9/L Unknown COMPLETE BLOOD COUNT [id number] Lymphocyte Abs 1.55 10e9/L Unknown COMPLETE BLOOD COUNT [id number] Monocyte Abs 0.44 10e9/L 04/05 Unknown COMPLETE BLOOD COUNT [id number] Eosinophil Abs 0.08 10e9/L Unknown COMPLETE BLOOD COUNT [id number] RDW-SD 40.9 fL 1 Unknown COMPLETE BLOOD COUNT [id number] Basophil Abs 0.01 10e9/L 04/05 Unknown FREE T4 62734 T4 Free 0.81 ng/dL 04/28/2021 Unknown PT [id number] PT 19.8 Seconds 01/18/2021 Unknow n PT [id number] INR 1.6 01/18/2021 Unknown PT [id number] PT 18.7 Seconds 10/14/2020 Unknow n PT [id number] INR 1.5 10/14/2020 Unknown COMPREHENSIVE METABOLIC 63777 AST 17 U/L 2019 Unknown COMPREHENSIVE METABOLIC 22046 ALT 10 U/L 2019 Unknown COMPREHENSIVE METABOLIC 05161 BUN 19 mg/dL 2019 Unknown COMPREHENSIVE METABOLIC 65827 ALBUMIN 4.1 g/dL 2019 Unknown COMPREHENSIVE METABOLIC 87494 CHLORIDE 103 mmol/L 10/14 Unknown COMPREHENSIVE METABOLIC 34318 Bili Total 0.6 mg/dL 10/14 Unknown COMPREHENSIVE METABOLIC 41893 ALK PHOS 65 U/L 2019 Unknown COMPREHENSIVE METABOLIC 45332 SODIUM 141 mmol/L 10/14 Unknown COMPREHENSIVE METABOLIC 67132 CREATININE 0.77 mg/dL 10/04 Unknown COMPREHENSIVE METABOLIC 05739 CALCIUM 9.2 mg/dL 2019 Unknown COMPREHENSIVE METABOLIC 48091 POTASSIUM 4.2 mmol/L 10/14 Unknown COMPREHENSIVE METABOLIC 12540 Total Protein 6.7 g/dL Unknown COMPREHENSIVE METABOLIC 15394 Glucose 91 mg/dL 2019 Unknown COMPREHENSIVE METABOLIC 89304 Bicarbonate 28 mmol/L 10/04 Unknown COMPREHENSIVE METABOLIC 96825 AGAP 10 mmol/L 2019 Unknown FREE T4 87934 T4 Free 0.81 ng/dL 10/14/2020 Unknown HEMOGLOBIN A1C (GLYCOSYLATED) 1068997 Hgb A1c 18455-5 4.4 % 10/14/2020 Unknown HEMOGLOBIN A1C (GLYCOSYLATED) 6744634 Calc Mean Gluc 80 mg /dL 10/14/2020 Unknown COMPLETE BLOOD COUNT [id number] WBC 5.4 10e9/L 10/14/20 20 Unknown COMPLETE BLOOD COUNT [id number] RBC 4.40 10e12/L 2019 Unknown COMPLETE BLOOD COUNT [id number] HEMOGLOBIN 14.4 g/dL 10/14/20 20 Unknown COMPLETE BLOOD COUNT 2455783 HEMATOCRIT 42.4 % 10/14/20 20 Unknown COMPLETE BLOOD COUNT [id number] MCV 96.4 fL 0 Unknown COMPLETE BLOOD COUNT [id number] MCH 32.7 pg 0 Unknown COMPLETE BLOOD COUNT [id number] MCHC 34.0 g/dL 0 Unknown COMPLETE BLOOD COUNT 7745315 PLATELET COUNT 216 10e9/L 09/2020 Unknown COMPLETE BLOOD COUNT 6773406 Mean Plt Volume 9.5 fL 09/2020 Unknown COMPLETE BLOOD COUNT 3728848 Neut Auto 57.6 % 0 Unknown COMPLETE BLOOD COUNT [id number] Lymph Auto 31.5 % 10/14/20 20 Unknown COMPLETE BLOOD COUNT [id number] [place] Auto 9.0 % 0 Unknown COMPLETE BLOOD COUNT 8678413 RDW 12.4 % 0 Unknown COMPLETE BLOOD COUNT 8075955 Eos Auto 1.7 % 0 Unknown COMPLETE BLOOD COUNT 7463417 Baso Auto 0.2 % 0 Unknown COMPLETE BLOOD COUNT 9980899 Neutrophil Abs 3.11 10e9/L Unknown COMPLETE BLOOD COUNT 8530140 Lymphocyte Abs 1.70 10e9/L Unknown COMPLETE BLOOD COUNT [id number] Monocyte Abs 0.49 10e9/L 10/04 Unknown COMPLETE BLOOD COUNT 3453263 Eosinophil Abs 0.09 10e9/L Unknown COMPLETE BLOOD COUNT 0753439 RDW-SD 42.4 fL 0 Unknown COMPLETE BLOOD COUNT [id number] Basophil Abs 0.01 10e9/L 10/04 Unknown THYROID STIMULATING HORMONE 18632 TSH 2.071 uIU/mL 10/14/2020 Unknown LIPID GROUP 03303 Cholesterol 217 mg/dL 10/14/2020 Unkno wn LIPID GROUP 91349 Triglyceride 108 mg/dL 10/14/2020 Unkn own LIPID GROUP 96980 HDL CHOLESTEROL 46 mg/dL 10/14/2020 U nknown LIPID GROUP 62150 Chol/HDL Ratio 4.72 ratio 10/14/2020 U nknown LIPID GROUP 93467 NON-HDL Chol 171 mg/dL 10/14/2020 Unkn own LIPID GROUP 91533 LDL Cholesterol 149 mg/dL 10/14/2020 U nknown GFR CALC [id number] GFR Non Afr Amr >60 mL/min 10/14/2020 Un known GFR CALC 9963645 GFR Afr Amr >60 mL/min 10/14/2020 Unknow n COMPLETE BLOOD COUNT [id number] WBC 7.6 10e9/L 04/06/20 20 Unknown COMPLETE BLOOD COUNT [id number] RBC 3.90 10e12/L 2019 Unknown COMPLETE BLOOD COUNT 6664903 HEMOGLOBIN 12.0 g/dL 04/06/20 20 Unknown COMPLETE BLOOD COUNT 8011940 HEMATOCRIT 36.9 % 04/06/20 20 Unknown COMPLETE BLOOD COUNT 0005554 MCV 94.6 fL 0 Unknown COMPLETE BLOOD COUNT 3549188 MCH 30.8 pg 0 Unknown COMPLETE BLOOD COUNT 0462493 MCHC 32.5 g/dL 0 Unknown COMPLETE BLOOD COUNT 5075968 PLATELET COUNT 257 10e9/L 01/2020 Unknown COMPLETE BLOOD COUNT 1383329 Mean Plt Volume 8.6 fL 01/2020 Unknown COMPLETE BLOOD COUNT 1116686 Neut Auto 68.7 % 0 Unknown COMPLETE BLOOD COUNT [id number] Lymph Auto 22.0 % 04/06/20 20 Unknown COMPLETE BLOOD COUNT 2850833 [place] Auto 8.3 % 0 Unknown COMPLETE BLOOD COUNT 7917936 RDW 12.7 % 0 Unknown COMPLETE BLOOD COUNT 7557325 Eos Auto 0.7 % 0 Unknown COMPLETE BLOOD COUNT 9936638 Baso Auto 0.3 % 0 Unknown COMPLETE BLOOD COUNT 1589848 Neutrophil Abs 5.22 10e9/L Unknown COMPLETE BLOOD COUNT 2201057 Lymphocyte Abs 1.67 10e9/L Unknown COMPLETE BLOOD COUNT [id number] Monocyte Abs 0.63 10e9/L 01/2020 Unknown COMPLETE BLOOD COUNT 1220917 Eosinophil Abs 0.05 10e9/L Unknown COMPLETE BLOOD COUNT 1036704 RDW-SD 42.6 fL 0 Unknown COMPLETE BLOOD COUNT [id number] Basophil Abs 0.02 10e9/L 01/2020 Unknown PT [id number] PT 19.3 Seconds 04/06/2020 Unknow n PT [id number] INR 1.6 04/06/2020 Unknown COMPREHENSIVE METABOLIC 44458 AST 12 U/L 2019 Unknown COMPREHENSIVE METABOLIC 05175 ALT 7 U/L 2019 Unknown COMPREHENSIVE METABOLIC 70156 BUN 19 mg/dL 2019 Unknown COMPREHENSIVE METABOLIC 05952 ALBUMIN 3.8 g/dL 2019 Unknown COMPREHENSIVE METABOLIC 08287 CHLORIDE 103 mmol/L 04/06 Unknown COMPREHENSIVE METABOLIC 72455 Bili Total 0.4 mg/dL 04/06 Unknown COMPREHENSIVE METABOLIC 86122 ALK PHOS 78 U/L 2019 Unknown COMPREHENSIVE METABOLIC 16711 SODIUM 141 mmol/L 04/06 Unknown COMPREHENSIVE METABOLIC 70576 CREATININE 0.90 mg/dL 01/2020 Unknown COMPREHENSIVE METABOLIC 52162 CALCIUM 9.0 mg/dL 2019 Unknown COMPREHENSIVE METABOLIC 73971 POTASSIUM 3.8 mmol/L 04/06 Unknown COMPREHENSIVE METABOLIC 59102 Total Protein 6.1 g/dL Unknown COMPREHENSIVE METABOLIC 64246 Glucose 125 mg/dL 2019 Unknown COMPREHENSIVE METABOLIC 49822 Bicarbonate 27 mmol/L 01/2020 Unknown COMPREHENSIVE METABOLIC 92623 AGAP 11 mmol/L 2019 Unknown GFR CALC 2425063 GFR Non Afr Amr >60 mL/min 04/06/2020 Un known GFR CALC [id number] GFR Afr Amr >60 mL/min 04/06/2020 Unknow n PT [id number] PT 25.2 Seconds 09/02/2019 Unknow n PT [id number] INR 2.2 09/02/2019 Unknown PT [id number] PT 26.5 Seconds 04/22/2019 Unknow n PT [id number] INR 2.3 04/22/2019 Unknown FERRITIN 76918 FERRITIN 240.3 ng/mL 04/22/2019 Unknown COMPLETE BLOOD COUNT [id number] WBC 7.7 10e9/L 04/22/20 19 Unknown COMPLETE BLOOD COUNT 8015490 RBC 4.19 10e12/L 2018 Unknown COMPLETE BLOOD COUNT 4843274 HEMOGLOBIN 13.5 g/dL 04/22/20 19 Unknown COMPLETE BLOOD COUNT [id number] HEMATOCRIT 39.6 % 04/22/20 19 Unknown COMPLETE BLOOD COUNT 4563403 MCV 94.5 fL 9 Unknown COMPLETE BLOOD COUNT [id number] MCH 32.2 pg 9 Unknown COMPLETE BLOOD COUNT 7563574 MCHC 34.1 g/dL 9 Unknown COMPLETE BLOOD COUNT 6289062 PLATELET COUNT 235 10e9/L Unknown COMPLETE BLOOD COUNT 9586948 Mean Plt Volume 9.8 fL Unknown COMPLETE BLOOD COUNT 6787844 Neut Auto 68.5 % 9 Unknown COMPLETE BLOOD COUNT 3896899 Lymph Auto 22.4 % 04/22/20 19 Unknown COMPLETE BLOOD COUNT [id number] [place] Auto 8.3 % 9 Unknown COMPLETE BLOOD COUNT [id number] RDW 12.4 % 9 Unknown COMPLETE BLOOD COUNT [id number] Eos Auto 0.5 % 9 Unknown COMPLETE BLOOD COUNT [id number] Baso Auto 0.3 % 9 Unknown COMPLETE BLOOD COUNT [id number] Neutrophil Abs 5.27 10e9/L Unknown COMPLETE BLOOD COUNT [id number] Lymphocyte Abs 1.72 10e9/L Unknown COMPLETE BLOOD COUNT [id number] Monocyte Abs 0.64 10e9/L 04/04 Unknown COMPLETE BLOOD COUNT [id number] Eosinophil Abs 0.04 10e9/L Unknown COMPLETE BLOOD COUNT [id number] RDW-SD 41.6 fL 9 Unknown COMPLETE BLOOD COUNT [id number] Basophil Abs 0.02 10e9/L 04/04 Unknown IRON 23872 Iron 95 ug/dL 04/22/2019 Unknown GFR CALC [id number] GFR Non Afr Amr >60 mL/min 01/05/2019 Un known GFR CALC [id number] GFR Afr Amr >60 mL/min 01/05/2019 Unknow n COMPREHENSIVE METABOLIC 28330 AST 15 U/L 2018 Unknown COMPREHENSIVE METABOLIC 00990 ALT 11 U/L 2018 Unknown COMPREHENSIVE METABOLIC 60693 BUN 16 mg/dL 2018 Unknown COMPREHENSIVE METABOLIC 38797 ALBUMIN 3.9 g/dL 2018 Unknown COMPREHENSIVE METABOLIC 85791 CHLORIDE 106 mmol/L 01/05 Unknown COMPREHENSIVE METABOLIC 42808 Bili Total 0.7 mg/dL 01/05 Unknown COMPREHENSIVE METABOLIC 88506 ALK PHOS 50 U/L 2018 Unknown COMPREHENSIVE METABOLIC 91056 SODIUM 138 mmol/L 01/05 Unknown COMPREHENSIVE METABOLIC 86659 CREATININE 0.74 mg/dL 02/2019 Unknown COMPREHENSIVE METABOLIC 20290 CALCIUM 9.0 mg/dL 2018 Unknown COMPREHENSIVE METABOLIC 60290 POTASSIUM 4.3 mmol/L 01/05 Unknown COMPREHENSIVE METABOLIC 11761 Total Protein 6.4 g/dL Unknown COMPREHENSIVE METABOLIC 02337 Glucose 114 mg/dL 2018 Unknown COMPREHENSIVE METABOLIC 53898 Bicarbonate 26 mmol/L 02/2019 Unknown COMPREHENSIVE METABOLIC 74170 AGAP 6 mmol/L 2018 Unknown COMPLETE BLOOD COUNT [id number] WBC 5.5 10e9/L 01/06/20 19 Unknown COMPLETE BLOOD COUNT [id number] RBC 4.27 10e12/L 2018 Unknown COMPLETE BLOOD COUNT [id number] HEMOGLOBIN 14.0 g/dL 01/06/20 19 Unknown COMPLETE BLOOD COUNT [id number] HEMATOCRIT 40.6 % 01/06/20 19 Unknown COMPLETE BLOOD COUNT [id number] MCV 95.1 fL 9 Unknown COMPLETE BLOOD COUNT [id number] MCH 32.8 pg 9 Unknown COMPLETE BLOOD COUNT [id number] MCHC 34.5 g/dL 9 Unknown COMPLETE BLOOD COUNT [id number] PLATELET COUNT 211 10e9/L 02/2019 Unknown COMPLETE BLOOD COUNT [id number] Mean Plt Volume 9.8 fL 02/2019 Unknown COMPLETE BLOOD COUNT [id number] Neut Auto 64.7 % 9 Unknown COMPLETE BLOOD COUNT [id number] Lymph Auto 24.3 % 01/06/20 19 Unknown COMPLETE BLOOD COUNT [id number] [place] Auto 9.7 % 9 Unknown COMPLETE BLOOD COUNT [id number] RDW 12.2 % 9 Unknown COMPLETE BLOOD COUNT [id number] Eos Auto 1.1 % 9 Unknown COMPLETE BLOOD COUNT [id number] Baso Auto 0.2 % 9 Unknown COMPLETE BLOOD COUNT [id number] Neutrophil Abs 3.56 10e9/L Unknown COMPLETE BLOOD COUNT [id number] Lymphocyte Abs 1.34 10e9/L Unknown COMPLETE BLOOD COUNT [id number] Monocyte Abs 0.53 10e9/L 02/2019 Unknown COMPLETE BLOOD COUNT [id number] Eosinophil Abs 0.06 10e9/L Unknown COMPLETE BLOOD COUNT [id number] RDW-SD 41.3 fL 9 Unknown COMPLETE BLOOD COUNT [id number] Basophil Abs 0.01 10e9/L 02/2019 Unknown LIPID GROUP 35847 Cholesterol 145 mg/dL 01/05/2019 Unkno wn LIPID GROUP 36180 Triglyceride 153 mg/dL 01/05/2019 Unkn own LIPID GROUP 76118 HDL CHOLESTEROL 39 mg/dL 01/05/2019 U nknown LIPID GROUP 06722 Chol/HDL Ratio 3.72 ratio 01/05/2019 U nknown LIPID GROUP 59054 NON-HDL Chol 106 mg/dL 01/05/2019 Unkn own LIPID GROUP 33718 LDL Cholesterol 75 mg/dL 01/05/2019 U nknown PT [id number] PT 30.5 Seconds 12/15/2018 Unknow n PT [id number] INR 2.9 12/15/2018 Unknown PT [id number] PT 17.2 Seconds 09/08/2018 Unknow n PT [id number] INR 1.4 09/08/2018 Unknown LIPID GROUP 00472 Cholesterol 190 mg/dL 07/08/2018 Unkno wn LIPID GROUP 01534 Triglyceride 402 mg/dL 07/08/2018 Unkn own LIPID GROUP 67855 HDL CHOLESTEROL 36 mg/dL 07/08/2018 U nknown LIPID GROUP 00933 Chol/HDL Ratio 5.28 ratio 07/08/2018 U nknown LIPID GROUP 18283 NON-HDL Chol 154 mg/dL 07/08/2018 Unkn own LIPID GROUP 85215 LDL Cholesterol N/A Trig >400 018 Unknown GFR CALC [id number] GFR Non Afr Amr >60 mL/min 07/08/2018 Un known GFR CALC [id number] GFR Afr Amr >60 mL/min 07/08/2018 Unknow n COMPLETE BLOOD COUNT [id number] WBC 5.0 10e9/L 07/08/20 18 Unknown COMPLETE BLOOD COUNT [id number] RBC 4.08 10e12/L 2017 Unknown COMPLETE BLOOD COUNT [id number] HEMOGLOBIN 13.3 g/dL 07/08/20 18 Unknown COMPLETE BLOOD COUNT [id number] HEMATOCRIT 38.6 % 07/08/20 18 Unknown COMPLETE BLOOD COUNT [id number] MCV 94.6 fL 8 Unknown COMPLETE BLOOD COUNT [id number] MCH 32.6 pg 8 Unknown COMPLETE BLOOD COUNT [id number] MCHC 34.5 g/dL 8 Unknown COMPLETE BLOOD COUNT [id number] PLATELET COUNT 205 10e9/L 02/2018 Unknown COMPLETE BLOOD COUNT [id number] Mean Plt Volume 9.8 fL 02/2018 Unknown COMPLETE BLOOD COUNT 8799842 Neut Auto 52.8 % 8 Unknown COMPLETE BLOOD COUNT 6177486 Lymph Auto 33.2 % 07/08/20 18 Unknown COMPLETE BLOOD COUNT 7589716 [place] Auto 11.6 % 8 Unknown COMPLETE BLOOD COUNT 1893011 RDW 12.5 % 8 Unknown COMPLETE BLOOD COUNT 0987383 Eos Auto 2.0 % 8 Unknown COMPLETE BLOOD COUNT 4015613 Baso Auto 0.4 % 8 Unknown COMPLETE BLOOD COUNT [id number] Neutrophil Abs 2.64 10e9/L Unknown COMPLETE BLOOD COUNT [id number] Lymphocyte Abs 1.66 10e9/L Unknown COMPLETE BLOOD COUNT [id number] Monocyte Abs 0.58 10e9/L 02/2018 Unknown COMPLETE BLOOD COUNT [id number] Eosinophil Abs 0.10 10e9/L Unknown COMPLETE BLOOD COUNT [id number] RDW-SD 41.8 fL 8 Unknown COMPLETE BLOOD COUNT [id number] Basophil Abs 0.02 10e9/L 02/2018 Unknown PT [id number] PT 32.9 Seconds 07/08/2018 Unknow n PT [id number] INR 3.2 07/08/2018 Unknown PT [id number] PT TNP:Duplicate Order 8 Unknown PT [id number] INR TNP:Duplicate Order 8 Unknown COMPREHENSIVE METABOLIC 74486 AST TNP:Duplicate Or grace 07/08/2018 Unknown COMPREHENSIVE METABOLIC 94509 ALT TNP:Duplicate Or grace 07/08/2018 Unknown COMPREHENSIVE METABOLIC 70881 BUN TNP:Duplicate Or grace 07/08/2018 Unknown COMPREHENSIVE METABOLIC 79986 ALBUMIN TNP:Duplicate Or grace 07/08/2018 Unknown COMPREHENSIVE METABOLIC 56221 CHLORIDE TNP:Duplicate Or grace 07/08/2018 Unknown COMPREHENSIVE METABOLIC 08416 Bili Total TNP:Duplicate O rder 07/08/2018 Unknown COMPREHENSIVE METABOLIC 19160 ALK PHOS TNP:Duplicate Or grace 07/08/2018 Unknown COMPREHENSIVE METABOLIC 05098 SODIUM TNP:Duplicate Or grace 07/08/2018 Unknown COMPREHENSIVE METABOLIC 45040 CREATININE TNP:Duplicate O rder 07/08/2018 Unknown COMPREHENSIVE METABOLIC 04922 CALCIUM TNP:Duplicate Or grace 07/08/2018 Unknown COMPREHENSIVE METABOLIC 56489 POTASSIUM TNP:Duplicate Or grace 07/08/2018 Unknown COMPREHENSIVE METABOLIC 39689 Total Protein TNP:Duplicat e Order 07/08/2018 Unknown COMPREHENSIVE METABOLIC 29640 Glucose TNP:Duplicate Or grace 07/08/2018 Unknown COMPREHENSIVE METABOLIC 35362 Bicarbonate TNP:Duplicate Order 07/08/2018 Unknown COMPREHENSIVE METABOLIC 43315 AGAP TNP:Duplicate Or grace 07/08/2018 Unknown COMPREHENSIVE METABOLIC 98638 AST 17 U/L 2017 Unknown COMPREHENSIVE METABOLIC 77537 ALT 12 U/L 2017 Unknown COMPREHENSIVE METABOLIC 44999 BUN 20 mg/dL 2017 Unknown COMPREHENSIVE METABOLIC 78390 ALBUMIN 4.0 g/dL 2017 Unknown COMPREHENSIVE METABOLIC 77169 CHLORIDE 107 mmol/L 07/08 Unknown COMPREHENSIVE METABOLIC 97270 Bili Total 0.3 mg/dL 07/08 Unknown COMPREHENSIVE METABOLIC 21952 ALK PHOS 58 U/L 2017 Unknown COMPREHENSIVE METABOLIC 89225 SODIUM 139 mmol/L 07/08 Unknown COMPREHENSIVE METABOLIC 35749 CREATININE 0.72 mg/dL 02/2018 Unknown COMPREHENSIVE METABOLIC 25389 CALCIUM 7.8 mg/dL 2017 Unknown COMPREHENSIVE METABOLIC 42111 POTASSIUM 4.1 mmol/L 07/08 Unknown COMPREHENSIVE METABOLIC 06277 Total Protein 6.2 g/dL Unknown COMPREHENSIVE METABOLIC 35050 Glucose 107 mg/dL 2017 Unknown COMPREHENSIVE METABOLIC 52107 Bicarbonate 22 mmol/L 02/2018 Unknown COMPREHENSIVE METABOLIC 38763 AGAP 10 mmol/L 2017 Unknown GFR CALC 2391781 GFR Non Afr Amr >60 mL/min 11/28/2017 Un known GFR CALC 6675407 GFR Afr Amr >60 mL/min 11/28/2017 Unknow n THYROID STIMULATING HORMONE 66309 TSH 4.029 uIU/mL 11/28/2017 Unknown LIPID GROUP 23751 Cholesterol 181 mg/dL 11/28/2017 Unkno wn LIPID GROUP 26678 Triglyceride 193 mg/dL 11/28/2017 Unkn own LIPID GROUP 48014 HDL CHOLESTEROL 36 11/28/2017 U nknown LIPID GROUP 43997 Chol/HDL Ratio 5.03 ratio 11/28/2017 U nknown LIPID GROUP 24560 NON-HDL Chol 145 mg/dL 11/28/2017 Unkn own LIPID GROUP 64886 LDL Cholesterol 106 mg/dL 11/28/2017 U nknown PT 6571827 PT 22.2 Seconds 11/28/2017 Unknow n PT 1704619 INR 2.0 11/28/2017 Unknown COMPREHENSIVE METABOLIC 91526 AST 19 U/L 2017 Unknown COMPREHENSIVE METABOLIC 83798 ALT 16 U/L 2017 Unknown COMPREHENSIVE METABOLIC 94364 BUN 22 mg/dL 2017 Unknown COMPREHENSIVE METABOLIC 78822 ALBUMIN 4.1 g/dL 2017 Unknown COMPREHENSIVE METABOLIC 70690 CHLORIDE 108 mmol/L 11/28 Unknown COMPREHENSIVE METABOLIC 08952 Bili Total 0.5 mg/dL 11/28 Unknown COMPREHENSIVE METABOLIC 67473 ALK PHOS 53 U/L 2017 Unknown COMPREHENSIVE METABOLIC 40047 SODIUM 141 mmol/L 11/28 Unknown COMPREHENSIVE METABOLIC 09638 CREATININE 0.83 mg/dL 11/05 Unknown COMPREHENSIVE METABOLIC 24542 CALCIUM 9.1 mg/dL 2017 Unknown COMPREHENSIVE METABOLIC 34593 POTASSIUM 4.6 mmol/L 11/28 Unknown COMPREHENSIVE METABOLIC 03296 Total Protein 6.5 g/dL Unknown COMPREHENSIVE METABOLIC 49766 Glucose 106 mg/dL 2017 Unknown COMPREHENSIVE METABOLIC 09830 Bicarbonate 26 mmol/L 11/05 Unknown COMPREHENSIVE METABOLIC 24769 AGAP 7 mmol/L 2017 Unknown COMPLETE BLOOD COUNT [id number] WBC 5.1 10e9/L 11/28/19 18 Unknown COMPLETE BLOOD COUNT 8201418 RBC 4.22 10e12/L 2017 Unknown COMPLETE BLOOD COUNT 5229047 HEMOGLOBIN 13.5 g/dL 11/28/19 18 Unknown COMPLETE BLOOD COUNT [id number] HEMATOCRIT 39.1 % 11/28/19 18 Unknown COMPLETE BLOOD COUNT 0467241 MCV 92.7 fL 8 Unknown COMPLETE BLOOD COUNT 7261561 MCH 32.0 pg 8 Unknown COMPLETE BLOOD COUNT 9672543 MCHC 34.5 g/dL 8 Unknown COMPLETE BLOOD COUNT 8230772 PLATELET COUNT 226 10e9/L Unknown COMPLETE BLOOD COUNT 5517949 Mean Plt Volume 9.6 fL Unknown COMPLETE BLOOD COUNT 7824058 Neut Auto 49.5 % 8 Unknown COMPLETE BLOOD COUNT 5071684 Lymph Auto 35.3 % 11/28/19 18 Unknown COMPLETE BLOOD COUNT 8860018 [place] Auto 12.4 % 8 Unknown COMPLETE BLOOD COUNT 1282597 RDW 12.4 % 8 Unknown COMPLETE BLOOD COUNT 0883305 Eos Auto 2.2 % 8 Unknown COMPLETE BLOOD COUNT 5327797 Baso Auto 0.6 % 8 Unknown COMPLETE BLOOD COUNT 9663201 Neutrophil Abs 2.52 10e9/L Unknown COMPLETE BLOOD COUNT 4685855 Lymphocyte Abs 1.80 10e9/L Unknown COMPLETE BLOOD COUNT [id number] Monocyte Abs 0.63 10e9/L 11/05 Unknown COMPLETE BLOOD COUNT [id number] Eosinophil Abs 0.11 10e9/L Unknown COMPLETE BLOOD COUNT 9117635 RDW-SD 41.2 fL 8 Unknown COMPLETE BLOOD COUNT 7481944 Basophil Abs 0.03 10e9/L 11/05 Unknown Procedures Procedure Codes Date SARSCOV & INF VIR A&B AG IA CPT-4: 11028 10/04/2021 FLU VACC PRSV FREE INC ANTIG 65 AND OLDER CPT-4: 06836 08/18/2021 FLU VACC PRSV FREE INC ANTIG 65 AND OLDER CPT-4: 79152 08/18/2021 ADMIN INFLUENZA VIRUS VAC CPT-4: G0008 08/18/2021 ROUTINE VENIPUNCTURE CPT-4: 64767 07/05/2021 PROTHROMBIN TIME CPT-4: 58344 07/05/2021 PPPS, subseq visit CPT-4: G0439 10/12/2020 ROUTINE VENIPUNCTURE CPT-4: 40054 04/06/2020 COMPREHEN METABOLIC PANEL CPT-4: 55826 04/06/2020 COMPLETE CBC W/AUTO DIFF WBC CPT-4: 14496 04/06/2020 PROTHROMBIN TIME CPT-4: 85096 04/06/2020 PPPS, subseq visit CPT-4: G0439 09/02/2019 ROUTINE VENIPUNCTURE CPT-4: 74584 09/02/2019 PROTHROMBIN TIME CPT-4: 16243 09/02/2019 FLU VACC PRSV FREE INC ANTIG 65 AND OLDER CPT-4: 77280 08/20/2018 PNEUMOCOCCAL VACC 23 BRIDGET IM CPT-4: 98790 08/20/2018 ADMIN INFLUENZA VIRUS VAC CPT-4: G0008 08/20/2018 ADMIN PNEUMOCOCCAL VACCINE CPT-4: G0009 08/20/2018 PPPS, subseq visit CPT-4: G0439 11/27/2017 FLU VACC PRSV FREE INC ANTIG 65 AND OLDER CPT-4: 49659 08/14/2017 PNEUMOCOCCAL VACC 13 BRIDGET IM CPT-4: 18440 08/14/2017 ADMIN INFLUENZA VIRUS VAC CPT-4: G0008 08/14/2017 ADMIN PNEUMOCOCCAL VACCINE CPT-4: G0009 08/14/2017 FLU VACC PRSV FREE INC ANTIG 65 AND OLDER CPT-4: 25554 10/03/2016 ADMIN INFLUENZA VIRUS VAC CPT-4: G0008 10/03/2016 PPPS, subseq visit CPT-4: G0439 10/10/2015 FLUZONE, 5ML (Medicare) CPT-4: Q2038 09/01/2014 ADMIN INFLUENZA VIRUS VAC CPT-4: G0008 09/01/2014 Vital Signs Date Vital 07/05/2021 Blood Pressure 1: 122/80 Code: 8480-6 Heart Rate 1: 92 bpm Respiratory Rate: 20 bpm SpO2: 96% Temperature: 36.8 (C) / 98.2 (F) We ight: 207 lbs Code: 05100-8 04/26/2021 Blood Pressure 1: 126/82 Code: 8480-6 Heart Rate 1: 104 bpm Respiratory Rate: 20 bpm SpO2: 96% Temperature: 36.7 (C) / 98.1 (F) We ight: 212 lbs Code: 18906-7 10/12/2020 Blood Pressure 1: 104/68 Code: 8480-6 BMI: 31.6 Code: 64873-9 Heart Rate 1: 96 bpm Height: 5'7" Code: 8302-2 Respiratory Rate: 20 bpm SpO2: 95% Temperature: 36.9 (C) / 98.5 (F) Weight: 202 lbs Code: 99607-2 07/13/2020 Blood Pressure 1: 128/72 Code: 8480-6 Heart Rate 1: 76 bpm Respiratory Rate: 18 bpm SpO2: 97% Temperature: 36.3 (C) / 97.3 (F) We ight: 190 lbs Code: 80952-4 04/06/2020 Blood Pressure 1: 106/68 Code: 8480-6 BMI: 29.1 Code: 23427-3 Heart Rate 1: 96 bpm Height: 5'7" Code: 8302-2 Respiratory Rate: 20 bpm SpO2: 96% Temperature: 36.8 (C) / 98.2 (F) Weight: 186 lbs Code: 03511-3 09/02/2019 Blood Pressure 1: 94/50 Code: 8480-6 BMI: 29.8 C ode: 19701-8 Heart Rate 1: 68 bpm Height: 5'7" Code: 8302-2 Respiratory Rate: 20 bpm SpO2: 96% Temperature: 36.6 (C) / 97.9 (F) Weight: 190 lbs Code: 28039-4 07/01/2019 Blood Pressure 1: 112/60 Code: 8480-6 Heart Rate 1: 88 bpm Respiratory Rate: 20 bpm SpO2: 94% Temperature: 36.8 (C) / 98.2 (F) We ight: 201 lbs Code: 44101-2 05/27/2019 Blood Pressure 1: 104/50 Code: 8480-6 Heart Rate 1: 62 bpm SpO2: 95% Temperature: 36.3 (C) / 97.4 (F) Weight: 204 lbs Code: 21259-1 04/22/2019 Blood Pressure 1: 112/72 Code: 8480-6 Heart Rate 1: 64 bpm Respiratory Rate: 20 bpm SpO2: 95% Temperature: 36.8 (C) / 98.2 (F) We ight: 207 lbs Code: 09214-3 02/09/2019 Blood Pressure 1: 104/60 Code: 8480-6 Heart Rate 1: 72 bpm Respiratory Rate: 20 bpm SpO2: 95% Temperature: 37.1 (C) / 98.8 (F) We ight: 216 lbs Code: 84292-0 01/07/2019 Blood Pressure 1: 122/74 Code: 8480-6 Heart Rate 1: 96 bpm Respiratory Rate: 20 bpm SpO2: 96% Temperature: 36.7 (C) / 98.1 (F) We ight: 219 lbs Code: 47415-0 07/09/2018 Blood Pressure 1: 118/65 Code: 8480-6 Heart Rate 1: 62 bpm SpO2: 94% Temperature: 36.2 (C) / 97.1 (F) Weight: 237 lbs Code: 92888-9 11/27/2017 Blood Pressure 1: 124/70 Code: 8480-6 BMI: 35.2 Code: 19203-0 Heart Rate 1: 64 bpm Height: 5'8" Code: 8302-2 Respiratory Rate: 20 bpm SpO2: 94% Temperature: 36.9 (C) / 98.5 (F) Weight: 235 lbs Code: 10194-0 10/10/2015 Blood Pressure 1: 126/78 Code: 8480-6 BMI: 36.0 Code: 57434-9 Heart Rate 1: 72 bpm Height: 5'8" Code: 8302-2 Respiratory Rate: 20 bpm Temperatu re: 36.9 (C) / 98.4 (F) Weight: 240 lbs Code: 34200-6 09/01/2014 Blood Pressure 1: 114/70 Code: 8480-6 BMI: 35.4 Code: 56558-7 Heart Rate 1: 76 bpm Height: 5'8" Code: 8302-2 Respiratory Rate: 20 bpm Temperatu re: 36.7 (C) / 98.1 (F) Weight: 236 lbs Code: 95749-2 07/02/2013 Blood Pressure 1: 124/90 Code: 8480-6 BMI: 33.7 Code: 99011-2 Heart Rate 1: 76 bpm Height: 5'8" Code: 8302-2 Respiratory Rate: 20 bpm Temperatu re: 36.6 (C) / 97.8 (F) Weight: 225 lbs Code: 75080-9 06/25/2012 Blood Pressure 1: 144/100 Code: 8480-6 BMI: 34.5 Code: 98038-3 Heart Rate 1: 76 bpm Height: 5'8" Code: 8302-2 Respiratory Rate: 20 bpm Temperatu re: 36.6 (C) / 97.9 (F) Weight: 230 lbs Code: 61047-2 05/15/2012 Blood Pressure 1: 112/70 Code: 8480-6 BMI: 34.6 Code: 13389-4 Heart Rate 1: 76 bpm Height: 5'8" Code: 8302-2 Respiratory Rate: 20 bpm Temperatu re: 37.0 (C) / 98.6 (F) Weight: 231 lbs Code: 36248-1 12/06/2011 Blood Pressure 1: 142/90 Code: 8480-6 BMI: 35.4 Code: 13728-4 Heart Rate 1: 72 bpm Height: 5'8" Code: 8302-2 Respiratory Rate: 20 bpm Temperatu re: 36.9 (C) / 98.4 (F) Weight: 236 lbs Code: 46997-4 10/30/2010 Blood Pressure 1: 114/78 Code: 8480-6 Heart Rate 1: 76 bpm Temperature: 36.3 (C) / 97.4 (F) Weight: 228 lbs Code: 54908-3 Functional Status No Functional Status data Reason [...] COVID-19 virus[ICD10: Z20.822] Arlyn FAUSTIN RmDiane JULIO Tablo CPT-4: 03912 10/04/2021 ([id number]) NURSE/OUTPATIENT VISIT EST Diagnosis: FLU VACCINE[ICD10: Z23] Arlyn CRAMERQUELINE RmDiane BRAYDON MOSQUERA [place] CPT-4: 89932 08/18/2021 ([id number]) OFFICE/OUTPATIENT VISIT EST Diagnosis: Parkinson disease[ICD10: G20] Diagnosis: FDC (current) use of anticoagulants[ICD10: Z79.01] Arlyn Ellisjerryestella ARLYN RmDiane JULIO [place] CPT-4: 58885 07/05/2021 ([id number]) OFFICE/OUTPATIENT VISIT EST Diagnosis: Parkinson disease[ICD10: G20] Diagnosis: Dementia[ICD10: F03.90] Arlyn FAUSTIN RmDiane BRAYDON MOSQUERA [place] CPT-4: 07856 04/26/2021 ([id number]) OFFICE/OUTPATIENT VISIT EST Diagnosis: 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] Diagnosis: 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: G30.9] Arlyn FAUSTIN RmDiane JULIO [place] CPT-4: 87978 07/13/2020 ([id number]) OFFICE/OUTPATIENT VISIT EST Diagnosis: Alzheimer's disease, unspecified[ICD10: G30.9] Arlyn LOPEZ Myndnet [facility] CPT-4: 85996 04/06/2020 ([id number]) OFFICE/OUTPATIENT VISIT EST Diagnosis: Alzheimer's disease with late onset[ICD10: G30.1] Diagnosis: Generalized anxiety disorder[ICD10: F41.1] Diagnosis: Unspecified dementia with behavioral disturbance[ICD10: F03.91] Arlyn Corraljerryestella FERMINARLYN RmDiane JULIO [facility] CPT-4: 27394 07/01/2019 ([id number]) OFFICE/OUTPATIENT VISIT EST Diagnosis: Alzheimer's disease with late onset[ICD10: G30.1] Diagnosis: Abnormal weight loss[ICD10: R63.4] Diagnosis: Essential (primary) hypertension[ICD10: I10] Diagnosis: Melena[ICD10: K92.1] Diagnosis: Unspecified dementia with behavioral disturbance[ICD10: F03.91] Diagnosis: Spontaneous ecchymoses[ICD10: R23.3] Arlyn Ellisjerryestella JENY KALEY Krish BRYSON [employer] CPT-4: 30013 05/27/2019 ([id number]) OFFICE/OUTPATIENT VISIT EST Diagnosis: 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] Diagnosis: Alzheimer's disease with late onset[ICD10: G30.1] Diagnosis: Melena[ICD10: K92.1] Diagnosis: Abnormal weight loss[ICD10: R63.4] Arlyn VENEGAS Krish LOPEZ [employer] [facility] CPT-4: 76283 04/22/2019 ([id number]) OFFICE/OUTPATIENT VISIT EST Diagnosis: 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] Diagnosis: Slow transit constipation[ICD10: K59.01] Diagnosis: Unspecified dementia with behavioral disturbance[ICD10: F03.91] Arlyn FAUSTIN RmDiane JULIO [place] [facility] CPT-4: 88009 02/09/2019 ([id number]) OFFICE/OUTPATIENT VISIT EST Diagnosis: Alzheimer's disease with late onset[ICD10: G30.1] Diagnosis: 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] Diagnosis: Nocturia[ICD10: R35.1] Diagnosis: Constipation, unspecified[ICD10: K59.00] Arlyn LOPEZ DO [facility] CPT-4: 99514 01/07/2019 ([id number]) NURSE/OUTPATIENT VISIT EST Diagnosis: FLU VACCINE[ICD10: Z23] Diagnosis: PNEUMOCOCCAL VACCINE[ICD10: Z23] Arlyn LOPEZ DO [facility] CPT-4: 75243 08/20/2018 ([id number]) OFFICE/OUTPATIENT VISIT EST Diagnosis: Mixed hyperlipidemia[ICD10: E78.2] Diagnosis: Essential (primary) hypertension[ICD10: I10] Diagnosis: Alzheimer's disease, unspecified[ICD10: G30.9] Arlyn LOPEZ DO [facility] CPT-4: 96990 07/09/2018 ([id number]) OFFICE/OUTPATIENT VISIT EST Diagnosis: PNEUMOCOCCAL VACCINE[ICD10: Z23] Diagnosis: FLU VACCINE[ICD10: Z23] Arlyn MOSQUERA [facility] CPT-4: 46484 08/14/2017 ([id number]) OFFICE/OUTPATIENT VISIT EST Diagnosis: FLU VACCINE[ICD10: Z23] Arlyn MOSQUERA [facility] CPT-4: 07134 10/03/2016 ([id number]) OFFICE/OUTPATIENT VISIT EST Diagnosis: HYPERTENSION[ICD9: 401.9] Diagnosis: HYPERLIPIDEMIA NEC/NOS[ICD9: 272.4] Diagnosis: MEMORY LOSS[ICD9: 780.93] Diagnosis: - I - ANXIETY STATE NOS[ICD9: 300.00] Diagnosis: FLU VACCINE[ICD10: Z23] Arlyn MOSQUERA [facility] CPT-4: 61023 09/01/2014 OFFICE/OUTPATIENT VISIT EST Diagnosis: HYPERTENSION[ICD9: 401.9] Diagnosis: CAD[ICD9: 414.00] Diagnosis: HYPERLIPIDEMIA NEC/NOS[ICD9: 272.4] Diagnosis: MEMORY LOSS[ICD9: 780.93] Diagnosis: ANXIETY STATE NOS[ICD9: 300.00] Diagnosis: Testicular pain[ICD9: 608.9] Arlyn LOPEZ DO [facility] CPT-4: 81096 07/02/2013 ([id number]) OFFICE/OUTPATIENT VISIT EST Diagnosis: MEMORY LOSS[ICD9: 780.93] Arlyn FAUSTIN RmDiane ELLIS SIMMONS [place] CPT-4: 42755 06/25/2012 ([id number]) OFFICE/OUTPATIENT VISIT EST Diagnosis: HYPERLIPIDEMIA NEC/NOS[ICD9: 272.4] Diagnosis: HYPERTENSION[ICD9: 401.9] Diagnosis: CAD[ICD9: 414.00] Diagnosis: MEMORY LOSS[ICD9: 780.93] Arlyn FAUSTIN RmDiane ELLIS SIMMONS [place] CPT-4: 12059 05/15/2012 PER PM REEVAL EST PAT 65+ YR Diagnosis: ROUTINE MEDICAL EXAM[ICD9: V70.0] Diagnosis: HYPERLIPIDEMIA NEC/NOS[ICD9: 272.4] Diagnosis: HYPERTENSION[ICD9: 401.9] Diagnosis: CAD[ICD9: 414.00] Diagnosis: Seborrheic dermatitis[ICD9: 690.10] Arlyn PERRY RmDiane JULIO [facility] CPT-4: 71565 12/06/2011 ([id number]) OFFICE/OUTPATIENT VISIT, EST Arlyn GENTILE RmDiane JULIO [facility] CPT-4: 19815 10/30/2010 Plan of Care Planned Activity Notes Codes Status Date Appointment: Arlyn Lopez WPtel: [phone] [facility] [id number] [place] Immunizations 08/18/2021 Visit Diagnosis Plan: Parkinson disease Discussion: In crease sinemet 25/100mg 2po BID Call in 1month ICD-9 : 332.0 ICD-10 : G20 07/05/2021 Visit Diagnosis Plan: weathercaster (current) use of antic oagulants Discussion: PT/INR drawn ICD-9 : V58.61 ICD-10 : Z79.01 07/05/2021 Appointment: Arlyn Lopez WPtel: [phone] [facility] [id number] [place] FOLLOW UP 07/05/2021 Visit Diagnosis Plan: Parkinson disease Discussion: Tr ial of sinemet 25/100mg po BID Fwup 2mos ICD-9 : 332.0 ICD-10 : G20 04/26/2021 Appointment: Arlyn Lopez WPtel: [address] [place], [place] [phone] US FOLLOW UP 04/26/2021 Appointment: Arlyn Lopez WPtel: [address] [place], [place] [phone] US CANCELED 01/11/2021 Visit Diagnosis Plan: Encounter for [facility] adult medical examination without abnormal findings [...] ICD-10 : G30.1 10/12/2020 Visit Diagnosis Plan: FDC (current) use of antic oagulants Discussion: Update PT/INR ICD-9 : V58.61 ICD-10 : Z79.01 10/12/2020 Appointment: Arlyn Lopez WPtel: [address] [place], [place] [phone] Annual Well Visit 10/12/2020 Visit Diagnosis Plan: [...] : F02.81 07/13/2020 Appointment: Arlyn Lopez WPtel: [address] [place], [place] [phone] US FOLLOW UP 07/13/2020 Care Plan: PT Pending 06/27/2020 Visit Diagnosis Plan: Alzheimer's disease, unspecified Discussion: Worsening has started OTC supplements Inquiring about meals on wheels Follow Up: 3 months ICD-9 : 331.0 ICD-10 : G30.9 04/06/2020 Appointment: Arlyn Lopeztel: [address] [place], [place] [id number] FOLLOW UP 04/06/2020 Care Plan: Referral Order SNOMED-CT : [id number] Pending 04/06/2020 Appointment: Arlyn Lopez WPtel: [phone] [facility] [id number] RESCHEDULED 02/24/2020 Care Plan: COMPREH[place] MET[place] : 49028-3 Pending 12/14/2019 Care Plan: LIPID PANEL LOINC : 04873-7 Pending 12/14/2019 Care Plan: PT Pending 12/14/2019 [...] : Z51.81 09/02/2019 Appointment: Arlyn Lopez WPtel: [facility] [place] [id number] originally 2 mo follow up Annual Well Visit 08/06 Visit Diagnosis Plan: Generalized anxiety disorder Dis cussion: Depakote already helping Follow Up: 2 months ICD-9 : 300.00 ICD-10 : F41.1 07/01/2019 Appointment: Arlyn Lopez WPtel: [address] [place], [place] [phone] [place] FOLLOW UP 07/01/2019 Visit Diagnosis Plan: [...] : K92.1 05/27/2019 Appointment: Arlyn Lopez WPtel: [address] [place], [place] [phone] US FOLLOW UP 05/27/2019 Visit Diagnosis Plan: [...] : F51.04 04/22/2019 Appointment: Arlyn Lopez WPtel: [address] [place], [place] [phone] [place] FOLLOW UP 04/22/2019 Visit Diagnosis Plan: [...] : K59.01 02/09/2019 Appointment: Arlyn Lopez WPtel: [address] [place], [place] [phone] FOLLOW UP 02/09/2019 Patient Education: escitalopram oxalate- [employer] [id number] Completed 02/09/2019 Patient Education: doxepin- [employer] [id number] Completed 02/09/2019 Visit Diagnosis Plan: Nocturia Discussion: [...] : F51.04 01/07/2019 Appointment: Arlyn Lopez WPtel: [address] [place], [place] [phone] FOLLOW UP 01/07/2019 Patient Education: tamsulosin- [employer] [id number] Completed 01/07/2019 Patient Education: doxepin- [employer] [id number] Completed 01/07/2019 Care Plan: COMPREH[place]AB[place] : 61970-4 Pending 12/17/2018 Care Plan: CBC Pending 12/17/2018 Care Plan: LIPID PANEL LOINC : 87483-2 Pending 12/17/2018 Appointment: Arlyn Lopez WPtel: [address] [place], [place] [phone] [place] INJECTION 08/20/2018 Patient Education: Patient Medication [...] : I10 07/09/2018 Appointment: Arlyn Lopez WPtel: [address] [place], [place] [phone] FOLLOW UP 07/09/2018 Patient Education: Patient Medication Summary Completed 07/09/2018 Visit Diagnosis Plan: Generalized anxiety disorder Dis cussion: Add lexapro 10mg q HS ICD-9 : 300.00 ICD-10 : F41.1 11/27/2017 Visit Diagnosis Plan: Alzheimer's disease, unspecified Discussion: Change Namenda XR to Namenda 10mg po BI Follow Up: 3 months ICD-9 : 331.0 ICD-10 : G30.9 11/27/2017 Visit Diagnosis Plan: Encounter for [facility] adult medical examination without abnormal findings Discussion: Update fasting lab ICD-9 : V70.0 ICD-10 : Z00.00 11/27/2017 Appointment: Arlyn Lopez WPtel: [address] [place], [place] [phone] Annual Well Visit 11/27/2017 Patient Education: Patient Medication Summary Completed 11/27/2017 Patient Education: Patient Medication Summary Completed 11/14/2017 Care Plan: CBC Pending 11/14/2017 Care Plan: PT Pending 11/14/2017 Care Plan: [place] : 28[address]-1 Pending 11/14/2017 Care Plan: LIPID PANEL LOINC : [id number] Pending 11/14/2017 Care Plan: ASSAY THYROID STIM HORMONE Pen ding 11/14/2017 Appointment: Arlyn Lopez WPtel: [address] [place], [place] [phone] [place] INJECTION 08/14/2017 Patient Education: Patient Medication Summary Completed 08/14/2017 Appointment: Arlyn Lopez WPtel: [address] [place] [address] [place] INJECTION 10/03/2016 Patient Education: Patient Medication Summary Completed 10/03/2016 Patient Education: Patient Medication Summary Completed 01/02/2016 Care Plan: CBC Ordered 01/02/2016 Visit Plan: Check fasting lab with next PT/INR Continue current meds Discussed trial of PPI but states gaviscon works if will take so will just try it 10/10/2015 Appointment: Arlyn Lopez WPtel: [address] [place] [address] 10/07/15 appt confirmed cn Annual Well Visit 05/2015 Patient Education: Patient Medication Summary Completed 10/10/2015 Appointment: Arlyn Lopez WPtel: [address] [place] [address] 08/31 no answer cell # 08/31 vm 2nd # FOLLOW UP 09/01/2014 Patient Education: Patient Medication Summary Completed 09/01/2014 Patient Education: Patient Medication Summary Completed 08/23/2014 Visit Plan: Lab discussed Check testicul ar US Change namenda to Namenda XR 23mg QD Check PSA 07/02/2013 Appointment: Arlyn Lopez WPtel: [address] [place] [address] ACUTE ILLNESS 07/02/2013 Patient Education: Patient Medication Summary Completed 07/02/2013 Visit Plan: Continue namenda 10mg po BID Discussed aricept 06/25/2012 Appointment: Arlyn Lopez WPtel: [address] [place] [address] confirmed w ACUTE ILLNESS 06/25/2012 Patient Education: Patient Medication Summary Completed 06/25/2012 Appointment: Arlyn Lopez WPtel: [address] [place] [address] FOLLOW UP 05/15/2012 Patient Education: Patient Medication Summary Completed 05/15/2012 Visit Plan: Continue current meds Lab di scussed Long discussion about meds, diet, exercise and weight loss for decreasing TG and elevating HDL Add Nystatin/TAC cream to use prn 12/06/2011 Appointment: Arlyn Lopez WPtel: [phone] [place] [address] [place] CHECK UP 12/06/2011 Patient Education: Patient Medication Summary Completed 12/06/2011 Visit Plan: Check fasting lab--CMP, lipi ds, PSA, PT/INR Loan deferment paperwork filled out 10/30/2010 Appointment: Arlyn Lopez WPtel: [address] [place] [address] [place] ESTABLISHED PATIENT 10/30/2010 Patient Education: Patient Medication Summary Completed 10/30/2010 Referral: Angeline Arellano WPtel: [address] [place] [address] [place] Referral Appointment Requested Instructions Comment . [...]
--- OUTSIDE RECORDS SUMMARY | 2021-10-12 10:17 | XMS REPORT | CCD ---
Author Author Ronnie Lopez D.O. Organization [facility] Address [address] [place] [address] Phone Care Team Providers Care Vendor Management Specialist Name Role Phone Roxie Lopez D.O., PP Unavailable CCM Unavailable Summary Purpose Interface Exchange Insurance Providers Payer name Policy type / Coverage type Covered republican ID Effective Begin Date Effective End Date [employer] Medicare [id number] Unknown Family History Family History data not found Social History Social History Element Codes Description Effective Dates Marital status Unknown 12/06/[address]: 3763705 Former smoker 2000 12/06/2011 Allergies, Adverse Reactions, Alerts Substance Reaction Codes Entered Date Inactivated Date Status * NO KNOWN FOOD ALLERGIES Unknown 10/30/2010 No Inactiv e Date Active PENICILLINS Unknown 10/30/2010 No Inactive Date Active * NO KNOWN ENVIRONMENTAL ALLERGIES Unknown 10/30/2010 N o Inactive Date Active Problems Condition Codes Effective Dates Condition Status FLU VACCINE ICD-10: Z23 ICD-9: V04.81 10/02/2016 Active longterm (current) use of anticoagulants ICD-10: Z79. 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-10: [...] Fill Instructions memantine 10 mg tablet RxNorm: 687522 TAKE 1 TABLET TWI CE DAILY (REPLACES NAMENDA XR) 06/26/2021 09/23/2021 Active escitalopram 20 mg tablet RxNorm: 110171 TAKE 1 TABLET AT BEDTIME 0 06/26/2021 09/23/2021 Active warfarin 2 mg tablet RxNorm: 979861 TAKE 1 AND 1/2 TABL ETS ON SATURDAY, SATURDAY, SATURDAY, SATURDAY AND TAKE 2 TABLETS ON SATURDAY, SATURDAY AND Saturday06/26/2021 09/23/2021 Active tamsulosin 0.4 mg capsule RxNorm: 301392 TAKE 1 CAPSULE EVERY DAY 0 06/26/2021 09/23/2021 Active carbidopa 25 mg-levodopa 100 mg tablet RxNorm: 468255 T PHAM 1 TABLET TWICE DAILY FOR TREMORS 06/26/2021 07/04/2021 Inactive Sinemet 25 mg-100 mg tablet RxNorm: 063749 Take 1 Table t(s) Oral two times a day for tremors 04/26/2021 04/26/2021 Inactive memantine 10 mg tablet RxNorm: 300041 TAKE 1 TABLET TWI CE DAILY (REPLACES NAMENDA XR) 04/12/2021 04/12/2021 Inactive warfarin 2 mg tablet RxNorm: 230792 2 Tablet(s) Oral Mo through Saturday and 1.5 tablets on Saturday/Saturday01/19/2021 No Stop Date Active tamsulosin 0.4 mg capsule RxNorm: 662921 TAKE 1 CAPSULE EVERY DAY 0 12/19/2020 12/19/2020 Inactive warfarin 2 mg tablet RxNorm: 895393 TAKE 1 AND 1/2 TABL ETS ON SATURDAY, SATURDAY, SATURDAY, SATURDAY AND TAKE 2 TABLETS ON SATURDAY, SATURDAY AND Saturday12/12/2020 01/18/2021 Inactive escitalopram 20 mg tablet RxNorm: 298449 TAKE 1 TABLET AT BEDTIME 0 11/28/2020 11/28/2020 Inactive Namenda 10 mg tablet RxNorm: 360989 TAKE 1 TABLET TWICE DAILY (REPLACES NAMENDA XR) 10/17/2020 10/17/2020 Inactive melatonin 10 mg capsule RxNorm: 257741 1 Capsule(s) Oral QD 020 No Stop Date Active tamsulosin 0.4 mg capsule RxNorm: 953163 TAKE 1 CAPSULE EVERY DAY 1 12/18/2020 Inactive warfarin 2 mg tablet RxNorm: 945471 TAKE 1 AND 1/2 TABL ETS ON SATURDAY, SATURDAY, SATURDAY, SATURDAY AND TAKE 2 TABLETS ON SATURDAY, SATURDAY AND Saturday07/12/2020 12/11/2020 Inactive warfarin 2 mg tablet RxNorm: 989526 TAKE 1 AND 1/2 TABL ETS ON SATURDAY, SATURDAY, SATURDAY, SATURDAY AND TAKE 2 TABLETS ON SATURDAY, SATURDAY AND Saturday06/27/2020 07/11/2020 Inactive Namenda 10 mg tablet RxNorm: 430301 TAKE 1 TABLET TWICE DAILY (REPLACES NAMENDA XR) 04/18/2020 10/16/2020 Inactive tamsulosin 0.4 mg capsule RxNorm: 234231 1 Capsule(s) Oral QD 02/1108/10/2020 Inactive Depakote ER 250 mg tablet,extended release RxNorm: 8697150 1 Tab let(s) Oral QPM 01/21/2020 04/20/2020 Inactive warfarin 2 mg tablet RxNorm: 233174 TAKE 1 AND 1/2 TABL ETS ON SATURDAY, SATURDAY, SATURDAY AND SATURDAY AND TAKE 2 TABLETS ON SATURDAY, SATURDAY AND Saturday12/14/2019 06/26/2020 Inactive escitalopram 20 mg tablet RxNorm: 489741 TAKE 1 TABLET AT BEDTIME 0 11/16/2019 11/27/2020 Inactive Namenda 10 mg tablet RxNorm: 594336 TAKE 1 TABLET TWICE DAILY (REPLACES NAMENDA XR) 10/08/2019 04/17/2020 Inactive tamsulosin 0.4 mg capsule RxNorm: 645928 1 Capsule(s) Oral QD 09/0202/11/2020 Inactive warfarin 2 mg tablet RxNorm: 908664 1.5 Tablet(s) PO on , , Sat, and Sun and 2 tablets on Sat, Sat, Sat07/13/2019 07/12/2019 Inactive Depakote ER 250 mg tablet,extended release RxNorm: 4578558 1 Tab let(s) PO BID 06/08/2019 09/05/2019 Inactive pravastatin 80 mg tablet RxNorm: 559665 TAKE 1 TABLET EVERY DAY 11/201809/01/2019 Inactive warfarin 2 mg tablet RxNorm: 486950 TAKE 1 AND 1/2 TABS ON SATURDAY,SATURDAY AND SATURDAY AND TAKE 2 TABS ON , , SAT AND SUN (NEED MD APPOINTMENT) 03/09/2019 07/13/2019 Inactive Namenda 10 mg tablet RxNorm: 205606 TAKE 1 TABLET TWICE DAILY (REPLACES NAMENDA XR) 02/09/2019 08/07/2019 Inactive doxepin 25 mg capsule RxNorm: 5495419 1 Capsule(s) PO QH S for sleep replaces 10mg dose 02/09/2019 04/21/2019 Inactive escitalopram 20 mg tablet RxNorm: 072134 1 Tablet(s) PO QHS 019 08/07/2019 Inactive tamsulosin 0.4 mg capsule RxNorm: 149365 1 Capsule(s) P O QPM for urinary frequency 01/07/2019 02/12/2020 Inactive divalproex 250 mg tablet,delayed release RxNorm: 0557344 1 Table t(s) PO QHS 01/07/2019 01/07/2019 Inactive doxepin 10 mg capsule RxNorm: 2149978 1-2 Capsule(s) PO QHS as n eeded for sleep 01/07/2019 02/08/2019 Inactive warfarin 2 mg tablet RxNorm: 923199 1 1/2 Tablet(s) PO MWF and 2 tablets on T Th Sat and Sun 12/29/2018 03/08/2019 Inactive metoprolol tartrate 50 mg tablet RxNorm: 502919 TAKE 1 TABLET T WICE DAILY 12/01/2018 06/30/2019 Inactive Namenda 10 mg tablet RxNorm: 407388 TAKE 1 TABLET TWICE DAILY (REPLACES NAMENDA XR) 09/22/2018 02/08/2019 Inactive warfarin 2 mg tablet RxNorm: 951435 1 1/2 Tablet(s) PO MWF and 2 tablets on T Th Sat and Sun 09/02/2018 09/01/2018 Inactive escitalopram 10 mg tablet RxNorm: 329551 1 Tablet(s) PO QHS 018 02/08/2019 Inactive pravastatin 80 mg tablet RxNorm: 799456 1 Tablet(s) PO QD 01/28/2018 10/24/2018 Inactive Namenda 10 mg tablet RxNorm: 609635 1 Tablet(s) PO BID 11/27/2017 Inactive escitalopram 10 mg tablet RxNorm: 358314 1 Tablet(s) PO QHS 018 06/09/2018 Inactive Namenda XR 28 mg capsule sprinkle,extended release RxNorm: 9 00265 TAKE ONE CAPSULE BY MOUTH ONCE DAILY 10/10/2017 11/26/2017 Inactive metoprolol tartrate 50 mg tablet RxNorm: 879813 Tablet( s) TAKE 1 TABLET TWICE DAILY 10/03/2017 09/27/2018 Inactive warfarin 2 mg tablet RxNorm: 645979 Tablet(s) TAKE 2 TA BLETS SATURDAY THROUGH SATURDAY AND 1 TABLET SATURDAY AND Saturday05/09/2017 09/02/2018 Inactive divalproex 250 mg tablet,delayed release RxNorm: 6370539 TAKE 1 TABLET TWICE DAILY 02/19/2017 01/06/2019 Inactive Namenda XR 28 mg capsule sprinkle,extended release RxNorm: 9 29314 TAKE 1 CAPSULE EVERY DAY 02/11/2017 10/09/2017 Inactive pravastatin 80 mg tablet RxNorm: 680327 1 Tablet(s) PO QD 01/21/2017 01/28/2018 Inactive Namenda XR 28 mg capsule sprinkle,extended release RxNorm: 9 85931 TAKE ONE CAPSULE BY MOUTH ONCE DAILY 09/24/2016 02/10/2017 Inactive metoprolol tartrate 50 mg tablet RxNorm: 900305 TAKE 1 TABLET T WICE DAILY 09/10/2016 10/03/2017 Inactive warfarin 2 mg tablet RxNorm: 799320 TAKE 2 TABLETS THROUGH SATURDAY AND 1 TABLET SATURDAY AND Saturday2016 05/09/2017 Inactive divalproex 250 mg tablet,delayed release RxNorm: 9778950 1 Table t(s) PO QHS 12/19/2015 12/12/2016 Inactive pravastatin 80 mg tablet RxNorm: 828865 1 Tablet(s) PO QD 12/19/2015 01/21/2017 Inactive Namenda XR 28 mg capsule sprinkle,extended release RxNorm: 9 09784 1 Capsule(s) PO QD 11/11/2015 09/23/2016 Inactive divalproex 250 mg tablet,delayed release RxNorm: 1349152 1 Table t(s) PO QHS 10/10/2015 12/19/2015 Inactive Namenda XR 28 mg capsule sprinkle,extended release RxNorm: 9 82596 1 Capsule(s) PO QD TAKE 1 CAPSULE EVERY DAY 11/09/2014 11/11/2015 Inactive Namenda XR 28 mg capsule sprinkle,ER 24hr RxNorm: 556668 1 PO QD TAKE ONE CAPSULE BY MOUTH ONCE DAILY 10/07/2014 11/09/2014 Inactive Namenda XR 28 mg capsule sprinkle,ER 24hr RxNorm: 182728 1 Caps ule(s) PO QD 11/10/2013 10/07/2014 Inactive metoprolol tartrate 50 mg tablet RxNorm: 307530 1 Tablet(s) PO BID 05/14/2013 05/08/2014 Inactive 1BID (REPLACES TOPROL) - [place]IMBER[place] E ONE TABLET BY MOUTH TWICE DAILY (REPLACES TOPROL) Ativan 1 mg tablet RxNorm: 310767 1 Tablet(s) PO BID 05/01/201310/09 Inactive as needed for anxiety pravastatin 40 mg tablet RxNorm: 513130 1 Tablet(s) PO QD due for labs in late summer03/26/2013 11/10/2014 Inactive warfarin 2 mg tablet RxNorm: 124011 1 Tablet(s) PO Take 2 tablets by mouth Saturday through Saturday and 1 tablet on Saturday and Saturday10/07/2012 Inactive pravastatin 40 mg tablet RxNorm: 532428 1 Tablet(s) PO QD 08/13/2012 03/26/2013 Inactive metoprolol tartrate 50 mg tablet RxNorm: 048968 1 Tablet(s) PO BID 08/13/2012 05/14/2013 Inactive 1BID (REPLACES TOPROL) - [place] E ONE TABLET BY MOUTH TWICE DAILY (REPLACES TOPROL) warfarin 2 mg tablet RxNorm: 435776 1 Tablet(s) PO QD 08/13/201202/2012 Inactive warfarin 2 mg tablet RxNorm: 020056 Tablet(s) PO 11/07/2011 08/13/2012 Inactive 2QD - TAKE TWO TABLETS BY MOUTH EVERY DAY SATURDAY THROUGH SATURDAY AND 1 TABLET ON SATURDAY AND SATURDAY pravastatin 40 mg tablet RxNorm: 647318 1 Tablet(s) PO QD 10/15/2011 08/13/2012 Inactive Ativan 1 mg tablet RxNorm: 538582 1 Tablet(s) PO BID 10/01/201109/30 Active as needed for anxiety metoprolol tartrate 50 mg tablet RxNorm: 907645 1 Tablet(s) PO BID 08/27/2011 08/13/2012 Inactive 1BID (REPLACES TOPROL) - [place] E ONE TABLET BY MOUTH TWICE DAILY (REPLACES TOPROL) pravastatin 40 mg Tab RxNorm: 795722 1 Tablet(s) PO QD 07/10/201109/2011 Inactive Ativan 1 mg Tab RxNorm: 338342 1 Tablet(s) PO BID 07/02/2011 1 Active as needed for anxiety metoprolol tartrate 50 mg Tab RxNorm: 158902 1 Tablet(s ) PO BID 1BID (REPLACES TOPROL) - TAKE ONE TABLET BY MOUTH TWICE DAILY (REPLACES TOPROL) 03/12/2011 08/26/2011 Inactive Ativan 1 mg Tab RxNorm: 739767 1 Tablet(s) PO BID as needed for anxiety 02/26/2011 02/25/2011 Active warfarin 2 mg Tab RxNorm: 905997 Tablet(s) PO 2QD - T PHAM TWO TABLETS BY MOUTH EVERY DAY SATURDAY THROUGH SATURDAY AND 1 TABLET ON SATURDAY AND Saturday12/18/2010 11/07/2011 Inactive Ativan 1 mg Tab RxNorm: 699303 1 Tablet(s) PO BID PRN for anxiety 0 11/06/2010 01/06/2019 Inactive metoprolol tartrate 50 mg Tab RxNorm: 763093 1 Tablet(s ) PO BID 1BID (REPLACES TOPROL) - TAKE ONE TABLET BY MOUTH TWICE DAILY (REPLACES TOPROL) 09/11/2010 03/12/2011 Inactive Ativan 1 mg Tab RxNorm: 005478 1 Tablet(s) PO BID PRN for anxiety 1 11/06/2010 Inactive warfarin 2 mg Tab RxNorm: 778382 Tablet(s) PO 2QD - T PHAM TWO TABLETS BY MOUTH EVERY DAY SATURDAY THROUGH SATURDAY AND 1 TABLET ON SATURDAY AND Saturday07/24/2010 10/29/2010 Inactive metoprolol tartrate 50 mg Tab RxNorm: 304062 1 Tablet(s) PO QD 01/201009/11/2010 Inactive pravastatin 40 mg Tab RxNorm: 288755 1 Tablet(s) PO QD 06/06/201004/2011 Inactive Warfarin 2 mg Tab RxNorm: 068262 2 Tablet(s) PO QD 2 tablets by mouth Saturday through Saturday, and one tablet by mouth on Saturday and Saturday. 06/06/2010 07/23/2010 Inactive Ativan 1 mg Tab RxNorm: 391988 1 Tablet(s) PO QHS PRN for anxiety 0 06/06/2010 08/27/2010 Inactive Pravastatin 40 mg Tab RxNorm: 092808 1 Tablet(s) PO QD 04/14/201012/2009 Inactive Ativan 1 mg Tab RxNorm: 491799 1 Tablet(s) PO BID PRN for anxiety 0 02/23/2010 06/02/2010 Inactive Probiotic oral RxNorm: 6205 oral 04/07/2020 Active [place] 3 Natural Fish Oil Conc capsule RxNorm: 1 Capsule(s) PO QD 0 11/27/2017 Active turmeric-turmeric root extract oral RxNorm: 8307907 oral 11/27/19 18 Active magnesium oral RxNorm: 6574 oral 04/07/2020 Active Vitamin D3 5,000 unit tablet RxNorm: 329059 1 Tablet(s) PO QD 019 Active warfarin 2 mg tablet RxNorm: 866538 1 Tablet(s) PO QD 08/13/201207/2012 Inactive Ativan 1 mg Tab RxNorm: 722872 1 Tablet(s) PO BID as needed for anxiety 02/26/2011 02/25/2011 Inactive warfarin 2 mg Tab RxNorm: 253962 2 Tablet(s) PO QD saturday06/06/2012 06/05/2012 Inactive Tricor 145 mg Tab RxNorm: 417085 1 Tablet(s) PO QD 12/06/2011 012 Inactive warfarin 4 mg tablet RxNorm: 695852 Tablet(s) PO 11/27/2017 11/26/2017 Inactive warfarin 2 mg Tab RxNorm: 683818 1 Tablet(s) PO QD on saturday and saturday06/06/2012 06/05/2012 Inactive warfarin 2 mg tablet RxNorm: 873126 1.5 Tablet(s) PO on , , Sat, and Sun and 2 tablets on Sat, Sat, Sat07/13/2019 07/12/2019 Inactive pravastatin 80 mg tablet RxNorm: 615601 1 Tablet(s) PO QD 12/19/2015 12/19/2015 Inactive metoprolol tartrate 50 mg tablet RxNorm: 184504 1 Tablet(s) PO QD 1 09/01/2019 Inactive Warfarin 2 mg Tab RxNorm: 134095 Tablet(s) PO 2 table ts by mouth Saturday through Saturday, and one tablet by mouth on Saturday and Saturday. 06/06/201012/2009 Inactive Namenda 10 mg Tab RxNorm: 361846 2 Tablet(s) PO QD 07/02/2013 013 Inactive warfarin 2 mg tablet RxNorm: 411374 1 1/2 Tablet(s) PO MWF and 2 tablets on Sat and Sun 09/02/2018 09/01/2018 Inactive Ativan 1 mg Tab RxNorm: 610468 1 Tablet(s) PO BID PRN for anxiety 04/20/2010 04/19/2010 Inactive warfarin 2 mg Tab RxNorm: 868373 Tablet(s) PO take 2 tablets by mouth Sat-Sat and 1 tablet on Saturday and Saturday06/06/2012 06/05/2012 Inactive Depakote ER 250 mg tablet,extended release RxNorm: 4172929 1 Tab let(s) PO BID 11/27/2017 11/26/2017 Inactive warfarin 1 mg Tab RxNorm: 954176 1 Tablet(s) PO on Saturday and Saturday10/30/2010 [...] Code Result Date S ervice Location PT [id number] PT 24.4 Seconds 07/05/2021 Unknow n PT [id number] INR 2.2 07/05/2021 Unknown PT [id number] PT 25.2 Seconds 04/28/2021 Unknow n PT [id number] INR 2.3 04/28/2021 Unknown THYROID STIMULATING HORMONE 60937 TSH 2.271 uIU/mL 04/28/2021 Unknown COMPREHENSIVE METABOLIC 88219 AST 18 U/L 2020 Unknown COMPREHENSIVE METABOLIC 73066 ALT 9 U/L 2020 Unknown COMPREHENSIVE METABOLIC 17831 BUN 17 mg/dL 2020 Unknown COMPREHENSIVE METABOLIC 43988 ALBUMIN 3.8 g/dL 2020 Unknown COMPREHENSIVE METABOLIC 95168 CHLORIDE 108 mmol/L 04/28 Unknown COMPREHENSIVE METABOLIC 68660 Bili Total 0.7 mg/dL 04/28 Unknown COMPREHENSIVE METABOLIC 48109 ALK PHOS 76 U/L 2020 Unknown COMPREHENSIVE METABOLIC 88921 SODIUM 140 mmol/L 04/28 Unknown COMPREHENSIVE METABOLIC 06072 CREATININE 0.83 mg/dL 04/05 Unknown COMPREHENSIVE METABOLIC 86601 CALCIUM 9.5 mg/dL 2020 Unknown COMPREHENSIVE METABOLIC 17374 POTASSIUM 4.1 mmol/L 04/28 Unknown COMPREHENSIVE METABOLIC 93797 Total Protein 6.9 g/dL Unknown COMPREHENSIVE METABOLIC 46686 Glucose 106 mg/dL 2020 Unknown COMPREHENSIVE METABOLIC 46246 Bicarbonate 26 mmol/L 04/05 Unknown COMPREHENSIVE METABOLIC 51935 AGAP 6 mmol/L 2020 Unknown GFR CALC 3070048 GFR Non Afr Amr >60 mL/min 04/28/2021 Un known GFR CALC [id number] GFR Afr Amr >60 mL/min 04/28/2021 Unknow n COMPLETE BLOOD COUNT [id number] WBC 4.6 10e9/L 04/28/20 21 Unknown COMPLETE BLOOD COUNT [id number] RBC 4.39 10e12/L 2020 Unknown COMPLETE BLOOD COUNT [id number] HEMOGLOBIN 14.2 g/dL 04/28/20 21 Unknown COMPLETE BLOOD COUNT [id number] HEMATOCRIT 41.1 % 04/28/20 21 Unknown COMPLETE BLOOD COUNT [id number] MCV 93.6 fL 1 Unknown COMPLETE BLOOD COUNT [id number] MCH 32.3 pg 1 Unknown COMPLETE BLOOD COUNT [id number] MCHC 34.5 g/dL 1 Unknown COMPLETE BLOOD COUNT [id number] PLATELET COUNT 198 10e9/L Unknown COMPLETE BLOOD COUNT [id number] Mean Plt Volume 9.3 fL Unknown COMPLETE BLOOD COUNT [id number] Neut Auto 54.8 % 1 Unknown COMPLETE BLOOD COUNT [id number] Lymph Auto 33.7 % 04/28/20 21 Unknown COMPLETE BLOOD COUNT [id number] Mobile Auto 9.6 % 1 Unknown COMPLETE BLOOD COUNT [id number] RDW 12.2 % 1 Unknown COMPLETE BLOOD COUNT [id number] Eos Auto 1.7 % 1 Unknown COMPLETE BLOOD COUNT [id number] Baso Auto 0.2 % 1 Unknown COMPLETE BLOOD COUNT [id number] Neutrophil Abs 2.52 10e9/L Unknown COMPLETE BLOOD COUNT [id number] Lymphocyte Abs 1.55 10e9/L Unknown COMPLETE BLOOD COUNT [id number] Monocyte Abs 0.44 10e9/L 04/05 Unknown COMPLETE BLOOD COUNT [id number] Eosinophil Abs 0.08 10e9/L Unknown COMPLETE BLOOD COUNT [id number] RDW-SD 40.9 fL Unknown COMPLETE BLOOD COUNT [id number] Basophil Abs 0.01 10e9/L 04/05 Unknown FREE T4 69942 T4 Free 0.81 ng/dL 04/28/2021 Unknown PT [id number] PT 19.8 Seconds 01/18/2021 Unknow n PT [id number] INR 1.6 01/18/2021 Unknown PT [id number] PT 18.7 Seconds 10/14/2020 Unknow n PT [id number] INR 1.5 10/14/2020 Unknown COMPREHENSIVE METABOLIC 77797 AST 17 U/L 2019 Unknown COMPREHENSIVE METABOLIC 73240 ALT 10 U/L 2019 Unknown COMPREHENSIVE METABOLIC 17063 BUN 19 mg/dL 2019 Unknown COMPREHENSIVE METABOLIC 79233 ALBUMIN 4.1 g/dL 2019 Unknown COMPREHENSIVE METABOLIC 40832 CHLORIDE 103 mmol/L 10/14 Unknown COMPREHENSIVE METABOLIC 70642 Bili Total 0.6 mg/dL 10/14 Unknown COMPREHENSIVE METABOLIC 21808 ALK PHOS 65 U/L 2019 Unknown COMPREHENSIVE METABOLIC 73054 SODIUM 141 mmol/L 10/14 Unknown COMPREHENSIVE METABOLIC 55103 CREATININE 0.77 mg/dL 10/04 Unknown COMPREHENSIVE METABOLIC 85516 CALCIUM 9.2 mg/dL 2019 Unknown COMPREHENSIVE METABOLIC 96087 POTASSIUM 4.2 mmol/L 10/14 Unknown COMPREHENSIVE METABOLIC 95104 Total Protein 6.7 g/dL Unknown COMPREHENSIVE METABOLIC 65944 Glucose 91 mg/dL 2019 Unknown COMPREHENSIVE METABOLIC 14032 Bicarbonate 28 mmol/L 10/04 Unknown COMPREHENSIVE METABOLIC 44682 AGAP 10 mmol/L 2019 Unknown FREE T4 70220 T4 Free 0.81 ng/dL 10/14/2020 Unknown HEMOGLOBIN A1C (GLYCOSYLATED) 2157591 Hgb A1c 74936-9 4.4 % 10/14/2020 Unknown HEMOGLOBIN A1C (GLYCOSYLATED) 3217174 Calc Mean Gluc 80 mg /dL 10/14/2020 Unknown COMPLETE BLOOD COUNT 7796204 WBC 5.4 10e9/L 10/14/20 20 Unknown COMPLETE BLOOD COUNT [id number] RBC 4.40 10e12/L 2019 Unknown COMPLETE BLOOD COUNT 9351350 HEMOGLOBIN 14.4 g/dL 10/14/20 20 Unknown COMPLETE BLOOD COUNT [id number] HEMATOCRIT 42.4 % 10/14/20 20 Unknown COMPLETE BLOOD COUNT [id number] MCV 96.4 fL 0 Unknown COMPLETE BLOOD COUNT 3270114 MCH 32.7 pg 0 Unknown COMPLETE BLOOD COUNT 1597690 MCHC 34.0 g/dL 0 Unknown COMPLETE BLOOD COUNT [id number] PLATELET COUNT 216 10e9/L 09/2020 Unknown COMPLETE BLOOD COUNT [id number] Mean Plt Volume 9.5 fL 09/2020 Unknown COMPLETE BLOOD COUNT [id number] Neut Auto 57.6 % 0 Unknown COMPLETE BLOOD COUNT [id number] Lymph Auto 31.5 % 10/14/20 20 Unknown COMPLETE BLOOD COUNT [id number] Mobile Auto 9.0 % 0 Unknown COMPLETE BLOOD COUNT [id number] RDW 12.4 % 0 Unknown COMPLETE BLOOD COUNT 3764464 Eos Auto 1.7 % 0 Unknown COMPLETE BLOOD COUNT 1344498 Baso Auto 0.2 % 0 Unknown COMPLETE BLOOD COUNT 0095384 Neutrophil Abs 3.11 10e9/L Unknown COMPLETE BLOOD COUNT [id number] Lymphocyte Abs 1.70 10e9/L Unknown COMPLETE BLOOD COUNT [id number] Monocyte Abs 0.49 10e9/L 10/04 Unknown COMPLETE BLOOD COUNT 3554490 Eosinophil Abs 0.09 10e9/L Unknown COMPLETE BLOOD COUNT [id number] RDW-SD 42.4 fL 0 Unknown COMPLETE BLOOD COUNT [id number] Basophil Abs 0.01 10e9/L 10/04 Unknown THYROID STIMULATING HORMONE 48776 TSH 2.071 uIU/mL 10/14/2020 Unknown LIPID GROUP 73112 Cholesterol 217 mg/dL 10/14/2020 Unkno wn LIPID GROUP 09873 Triglyceride 108 mg/dL 10/14/2020 Unkn own LIPID GROUP 25011 HDL CHOLESTEROL 46 mg/dL 10/14/2020 U nknown LIPID GROUP 22239 Chol/HDL Ratio 4.72 ratio 10/14/2020 U nknown LIPID GROUP 42830 NON-HDL Chol 171 mg/dL 10/14/2020 Unkn own LIPID GROUP 61611 LDL Cholesterol 149 mg/dL 10/14/2020 U nknown GFR CALC 5960678 GFR Non Afr Amr >60 mL/min 10/14/2020 Un known GFR CALC 9917034 GFR Afr Amr >60 mL/min 10/14/2020 Unknow n COMPLETE BLOOD COUNT 9183562 WBC 7.6 10e9/L 04/06/20 20 Unknown COMPLETE BLOOD COUNT [id number] RBC 3.90 10e12/L 2019 Unknown COMPLETE BLOOD COUNT [id number] HEMOGLOBIN 12.0 g/dL 04/06/20 20 Unknown COMPLETE BLOOD COUNT [id number] HEMATOCRIT 36.9 % 04/06/20 20 Unknown COMPLETE BLOOD COUNT 6445987 MCV 94.6 fL 0 Unknown COMPLETE BLOOD COUNT [id number] MCH 30.8 pg 0 Unknown COMPLETE BLOOD COUNT 4886177 MCHC 32.5 g/dL 0 Unknown COMPLETE BLOOD COUNT [id number] PLATELET COUNT 257 10e9/L 01/2020 Unknown COMPLETE BLOOD COUNT [id number] Mean Plt Volume 8.6 fL 01/2020 Unknown COMPLETE BLOOD COUNT [id number] Neut Auto 68.7 % 0 Unknown COMPLETE BLOOD COUNT 5177785 Lymph Auto 22.0 % 04/06/20 20 Unknown COMPLETE BLOOD COUNT [id number] Mobile Auto 8.3 % 0 Unknown COMPLETE BLOOD COUNT 1269252 RDW 12.7 % 0 Unknown COMPLETE BLOOD COUNT [id number] Eos Auto 0.7 % 0 Unknown COMPLETE BLOOD COUNT [id number] Baso Auto 0.3 % 0 Unknown COMPLETE BLOOD COUNT 5495982 Neutrophil Abs 5.22 10e9/L Unknown COMPLETE BLOOD COUNT 6933688 Lymphocyte Abs 1.67 10e9/L Unknown COMPLETE BLOOD COUNT [id number] Monocyte Abs 0.63 10e9/L 01/2020 Unknown COMPLETE BLOOD COUNT [id number] Eosinophil Abs 0.05 10e9/L Unknown COMPLETE BLOOD COUNT [id number] RDW-SD 42.6 fL 0 Unknown COMPLETE BLOOD COUNT [id number] Basophil Abs 0.02 10e9/L 01/2020 Unknown PT [id number] PT 19.3 Seconds 04/06/2020 Unknow n PT [id number] INR 1.6 04/06/2020 Unknown COMPREHENSIVE METABOLIC 01885 AST 12 U/L 2019 Unknown COMPREHENSIVE METABOLIC 17181 ALT 7 U/L 2019 Unknown COMPREHENSIVE METABOLIC 64751 BUN 19 mg/dL 2019 Unknown COMPREHENSIVE METABOLIC 81312 ALBUMIN 3.8 g/dL 2019 Unknown COMPREHENSIVE METABOLIC 75727 CHLORIDE 103 mmol/L 04/06 Unknown COMPREHENSIVE METABOLIC 14190 Bili Total 0.4 mg/dL 04/06 Unknown COMPREHENSIVE METABOLIC 52488 ALK PHOS 78 U/L 2019 Unknown COMPREHENSIVE METABOLIC 23848 SODIUM 141 mmol/L 04/06 Unknown COMPREHENSIVE METABOLIC 26622 CREATININE 0.90 mg/dL 01/2020 Unknown COMPREHENSIVE METABOLIC 45026 CALCIUM 9.0 mg/dL 2019 Unknown COMPREHENSIVE METABOLIC 54887 POTASSIUM 3.8 mmol/L 04/06 Unknown COMPREHENSIVE METABOLIC 89664 Total Protein 6.1 g/dL Unknown COMPREHENSIVE METABOLIC 29039 Glucose 125 mg/dL 2019 Unknown COMPREHENSIVE METABOLIC 96778 Bicarbonate 27 mmol/L 01/2020 Unknown COMPREHENSIVE METABOLIC 20544 AGAP 11 mmol/L 2019 Unknown GFR CALC [id number] GFR Non Afr Amr >60 mL/min 04/06/2020 Un known GFR CALC [id number] GFR Afr Amr >60 mL/min 04/06/2020 Unknow n PT [id number] PT 25.2 Seconds 09/02/2019 Unknow n PT [id number] INR 2.2 09/02/2019 Unknown PT [id number] PT 26.5 Seconds 04/22/2019 Unknow n PT [id number] INR 2.3 04/22/2019 Unknown FERRITIN 23391 FERRITIN 240.3 ng/mL 04/22/2019 Unknown COMPLETE BLOOD COUNT 1066667 WBC 7.7 10e9/L 04/22/20 19 Unknown COMPLETE BLOOD COUNT [id number] RBC 4.19 10e12/L 2018 Unknown COMPLETE BLOOD COUNT [id number] HEMOGLOBIN 13.5 g/dL 04/22/20 19 Unknown COMPLETE BLOOD COUNT [id number] HEMATOCRIT 39.6 % 04/22/20 19 Unknown COMPLETE BLOOD COUNT [id number] MCV 94.5 fL 9 Unknown COMPLETE BLOOD COUNT [id number] MCH 32.2 pg 9 Unknown COMPLETE BLOOD COUNT 4582761 MCHC 34.1 g/dL 9 Unknown COMPLETE BLOOD COUNT [id number] PLATELET COUNT 235 10e9/L Unknown COMPLETE BLOOD COUNT 0301805 Mean Plt Volume 9.8 fL Unknown COMPLETE BLOOD COUNT [id number] Neut Auto 68.5 % 9 Unknown COMPLETE BLOOD COUNT [id number] Lymph Auto 22.4 % 04/22/20 19 Unknown COMPLETE BLOOD COUNT [id number] Mobile Auto 8.3 % 9 Unknown COMPLETE BLOOD COUNT 3022728 RDW 12.4 % 9 Unknown COMPLETE BLOOD COUNT 8203062 Eos Auto 0.5 % 9 Unknown COMPLETE BLOOD COUNT 2478296 Baso Auto 0.3 % 9 Unknown COMPLETE BLOOD COUNT [id number] Neutrophil Abs 5.27 10e9/L Unknown COMPLETE BLOOD COUNT [id number] Lymphocyte Abs 1.72 10e9/L Unknown COMPLETE BLOOD COUNT [id number] Monocyte Abs 0.64 10e9/L 04/04 Unknown COMPLETE BLOOD COUNT [id number] Eosinophil Abs 0.04 10e9/L Unknown COMPLETE BLOOD COUNT [id number] RDW-SD 41.6 fL 9 Unknown COMPLETE BLOOD COUNT [id number] Basophil Abs 0.02 10e9/L 04/04 Unknown IRON 05644 Iron 95 ug/dL 04/22/2019 Unknown GFR CALC [id number] GFR Non Afr Amr >60 mL/min 01/05/2019 Un known GFR CALC [id number] GFR Afr Amr >60 mL/min 01/05/2019 Unknow n COMPREHENSIVE METABOLIC 49845 AST 15 U/L 2018 Unknown COMPREHENSIVE METABOLIC 91155 ALT 11 U/L 2018 Unknown COMPREHENSIVE METABOLIC 88556 BUN 16 mg/dL 2018 Unknown COMPREHENSIVE METABOLIC 77448 ALBUMIN 3.9 g/dL 2018 Unknown COMPREHENSIVE METABOLIC 13766 CHLORIDE 106 mmol/L 01/05 Unknown COMPREHENSIVE METABOLIC 52539 Bili Total 0.7 mg/dL 01/05 Unknown COMPREHENSIVE METABOLIC 44720 ALK PHOS 50 U/L 2018 Unknown COMPREHENSIVE METABOLIC 41817 SODIUM 138 mmol/L 01/05 Unknown COMPREHENSIVE METABOLIC 43799 CREATININE 0.74 mg/dL 02/2019 Unknown COMPREHENSIVE METABOLIC 22792 CALCIUM 9.0 mg/dL 2018 Unknown COMPREHENSIVE METABOLIC 15150 POTASSIUM 4.3 mmol/L 01/05 Unknown COMPREHENSIVE METABOLIC 98830 Total Protein 6.4 g/dL Unknown COMPREHENSIVE METABOLIC 46504 Glucose 114 mg/dL 2018 Unknown COMPREHENSIVE METABOLIC 47034 Bicarbonate 26 mmol/L 02/2019 Unknown COMPREHENSIVE METABOLIC 04481 AGAP 6 mmol/L 2018 Unknown COMPLETE BLOOD COUNT [id number] WBC 5.5 10e9/L 01/06/20 19 Unknown COMPLETE BLOOD COUNT [id number] RBC 4.27 10e12/L 2018 Unknown COMPLETE BLOOD COUNT [id number] HEMOGLOBIN 14.0 g/dL 01/06/20 19 Unknown COMPLETE BLOOD COUNT [id number] HEMATOCRIT 40.6 % 01/06/20 19 Unknown COMPLETE BLOOD COUNT [id number] MCV 95.1 fL 9 Unknown COMPLETE BLOOD COUNT [id number] MCH 32.8 pg 9 Unknown COMPLETE BLOOD COUNT [id number] MCHC 34.5 g/dL 9 Unknown COMPLETE BLOOD COUNT [id number] PLATELET COUNT 211 10e9/L 02/2019 Unknown COMPLETE BLOOD COUNT [id number] Mean Plt Volume 9.8 fL 02/2019 Unknown COMPLETE BLOOD COUNT [id number] Neut Auto 64.7 % 9 Unknown COMPLETE BLOOD COUNT [id number] Lymph Auto 24.3 % 01/06/20 19 Unknown COMPLETE BLOOD COUNT [id number] Mobile Auto 9.7 % 9 Unknown COMPLETE BLOOD COUNT [id number] RDW 12.2 % 9 Unknown COMPLETE BLOOD COUNT [id number] Eos Auto 1.1 % 9 Unknown COMPLETE BLOOD COUNT [id number] Baso Auto 0.2 % 9 Unknown COMPLETE BLOOD COUNT [id number] Neutrophil Abs 3.56 10e9/L Unknown COMPLETE BLOOD COUNT [id number] Lymphocyte Abs 1.34 10e9/L Unknown COMPLETE BLOOD COUNT [id number] Monocyte Abs 0.53 10e9/L 02/2019 Unknown COMPLETE BLOOD COUNT [id number] Eosinophil Abs 0.06 10e9/L Unknown COMPLETE BLOOD COUNT [id number] RDW-SD 41.3 fL 9 Unknown COMPLETE BLOOD COUNT [id number] Basophil Abs 0.01 10e9/L 02/2019 Unknown [facility] 15023 Cholesterol 145 mg/dL 01/05/2019 Unkno wn L[facility] GROUP 13636 Triglyceride 153 mg/dL 01/05/2019 Unkn own [facility] 58055 HDL CHOLESTEROL 39 mg/dL 01/05/2019 U nknown L[facility] 93009 Chol/HDL Ratio 3.72 ratio 01/05/2019 U nknown [facility] 41580 NON-HDL Chol 106 mg/dL 01/05/2019 Unkn own [facility] 35490 LDL Cholesterol 75 mg/dL 01/05/2019 U nknown PT [id number] PT 30.5 Seconds 12/15/2018 Unknow n PT [id number] INR 2.9 12/15/2018 Unknown PT [id number] PT 17.2 Seconds 09/08/2018 Unknow n PT [id number] INR 1.4 09/08/2018 Unknown [facility] 88445 Cholesterol 190 mg/dL 07/08/2018 Unkno wn [facility] 34168 Triglyceride 402 mg/dL 07/08/2018 Unkn own [facility] 40163 HDL CHOLESTEROL 36 mg/dL 07/08/2018 U nknown [facility] 59729 Chol/HDL Ratio 5.28 ratio 07/08/2018 U nknown [facility] 41321 NON-HDL Chol 154 mg/dL 07/08/2018 Unkn own [facility] 05620 LDL Cholesterol N/A Trig >400 018 Unknown GFR CALC [id number] GFR Non Afr Amr >60 mL/min 07/08/2018 Un known GFR CALC [id number] GFR Afr Amr >60 mL/min 07/08/2018 Unknow n COMPLETE BLOOD COUNT [id number] WBC 5.0 10e9/L 07/08/20 18 Unknown COMPLETE BLOOD COUNT [id number] RBC 4.08 10e12/L 2017 Unknown COMPLETE BLOOD COUNT [id number] HEMOGLOBIN 13.3 g/dL 07/08/20 18 Unknown COMPLETE BLOOD COUNT [id number] HEMATOCRIT 38.6 % 07/08/20 18 Unknown COMPLETE BLOOD COUNT [id number] MCV 94.6 fL 8 Unknown COMPLETE BLOOD COUNT [id number] MCH 32.6 pg 8 Unknown COMPLETE BLOOD COUNT [id number] MCHC 34.5 g/dL 8 Unknown COMPLETE BLOOD COUNT [id number] PLATELET COUNT 205 10e9/L 02/2018 Unknown COMPLETE BLOOD COUNT [id number] Mean Plt Volume 9.8 fL 02/2018 Unknown COMPLETE BLOOD COUNT [id number] Neut Auto 52.8 % 8 Unknown COMPLETE BLOOD COUNT [id number] Lymph Auto 33.2 % 07/08/20 18 Unknown COMPLETE BLOOD COUNT 0432016 Mobile Auto 11.6 % 8 Unknown COMPLETE BLOOD COUNT [id number] RDW 12.5 % 8 Unknown COMPLETE BLOOD COUNT [id number] Eos Auto 2.0 % 8 Unknown COMPLETE BLOOD COUNT [id number] Baso Auto 0.4 % 8 Unknown COMPLETE BLOOD COUNT [id number] Neutrophil Abs 2.64 10e9/L Unknown COMPLETE BLOOD COUNT [id number] Lymphocyte Abs 1.66 10e9/L Unknown COMPLETE BLOOD COUNT [id number] Monocyte Abs 0.58 10e9/L 02/2018 Unknown COMPLETE BLOOD COUNT [id number] Eosinophil Abs 0.10 10e9/L Unknown COMPLETE BLOOD COUNT [id number] RDW-SD 41.8 fL 8 Unknown COMPLETE BLOOD COUNT [id number] Basophil Abs 0.02 10e9/L 02/2018 Unknown PT [id number] PT 32.9 Seconds 07/08/2018 Unknow n PT [id number] INR 3.2 07/08/2018 Unknown PT [id number] PT TNP:Duplicate Order 8 Unknown PT [id number] INR TNP:Duplicate Order 8 Unknown COMPREHENSIVE METABOLIC 83433 AST TNP:Duplicate Or garce 07/08/2018 Unknown COMPREHENSIVE METABOLIC 69755 ALT TNP:Duplicate Or grace 07/08/2018 Unknown COMPREHENSIVE METABOLIC 63761 BUN TNP:Duplicate Or grace 07/08/2018 Unknown COMPREHENSIVE METABOLIC 24007 ALBUMIN TNP:Duplicate Or grace 07/08/2018 Unknown COMPREHENSIVE METABOLIC 78901 CHLORIDE TNP:Duplicate Or grace 07/08/2018 Unknown COMPREHENSIVE METABOLIC 44795 Bili Total TNP:Duplicate O rder 07/08/2018 Unknown COMPREHENSIVE METABOLIC 14096 ALK PHOS TNP:Duplicate Or grace 07/08/2018 Unknown COMPREHENSIVE METABOLIC 30621 SODIUM TNP:Duplicate Or grace 07/08/2018 Unknown COMPREHENSIVE METABOLIC 03160 CREATININE TNP:Duplicate O rder 07/08/2018 Unknown COMPREHENSIVE METABOLIC 70725 CALCIUM TNP:Duplicate Or grace 07/08/2018 Unknown COMPREHENSIVE METABOLIC 67231 POTASSIUM TNP:Duplicate Or grace 07/08/2018 Unknown COMPREHENSIVE METABOLIC 85276 Total Protein TNP:Duplicat e Order 07/08/2018 Unknown COMPREHENSIVE METABOLIC 06979 Glucose TNP:Duplicate Or grace 07/08/2018 Unknown COMPREHENSIVE METABOLIC 87479 Bicarbonate TNP:Duplicate Order 07/08/2018 Unknown COMPREHENSIVE METABOLIC 74917 AGAP TNP:Duplicate Or grace 07/08/2018 Unknown COMPREHENSIVE METABOLIC 57064 AST 17 U/L 2017 Unknown COMPREHENSIVE METABOLIC 74295 ALT 12 U/L 2017 Unknown COMPREHENSIVE METABOLIC 87334 BUN 20 mg/dL 2017 Unknown COMPREHENSIVE METABOLIC 49755 ALBUMIN 4.0 g/dL 2017 Unknown COMPREHENSIVE METABOLIC 89963 CHLORIDE 107 mmol/L 07/08 Unknown COMPREHENSIVE METABOLIC 51803 Bili Total 0.3 mg/dL 07/08 Unknown COMPREHENSIVE METABOLIC 85150 ALK PHOS 58 U/L 2017 Unknown COMPREHENSIVE METABOLIC 28864 SODIUM 139 mmol/L 07/08 Unknown COMPREHENSIVE METABOLIC 14069 CREATININE 0.72 mg/dL 02/2018 Unknown COMPREHENSIVE METABOLIC 73966 CALCIUM 7.8 mg/dL 2017 Unknown COMPREHENSIVE METABOLIC 14144 POTASSIUM 4.1 mmol/L 07/08 Unknown COMPREHENSIVE METABOLIC 02911 Total Protein 6.2 g/dL Unknown COMPREHENSIVE METABOLIC 82026 Glucose 107 mg/dL 2017 Unknown COMPREHENSIVE METABOLIC 09543 Bicarbonate 22 mmol/L 02/2018 Unknown COMPREHENSIVE METABOLIC 88250 AGAP 10 mmol/L 2017 Unknown GFR CALC 3870628 GFR Non Afr Amr >60 mL/min 11/28/2017 Un known GFR CALC 2245843 GFR Afr Amr >60 mL/min 11/28/2017 Unknow n THYROID STIMULATING HORMONE 18887 TSH 4.029 uIU/mL 11/28/2017 Unknown LIPID GROUP 34841 Cholesterol 181 mg/dL 11/28/2017 Unkno wn LIP[facility] GROUP 98868 Triglyceride 193 mg/dL 11/28/2017 Unkn own LIP[facility] GROUP 10945 HDL CHOLESTEROL 36 11/28/2017 U nknown L[facility] GROUP 55673 Chol/HDL Ratio 5.03 ratio 11/28/2017 U nknown LIP[facility] GROUP 52224 NON-HDL Chol 145 mg/dL 11/28/2017 Unkn own [facility] GROUP 13959 LDL Cholesterol 106 mg/dL 11/28/2017 U nknown PT 2508457 PT 22.2 Seconds 11/28/2017 Unknow n PT 4290152 INR 2.0 11/28/2017 Unknown COMPREHENSIVE METABOLIC 07846 AST 19 U/L 2017 Unknown COMPREHENSIVE METABOLIC 00172 ALT 16 U/L 2017 Unknown COMPREHENSIVE METABOLIC 47454 BUN 22 mg/dL 2017 Unknown COMPREHENSIVE METABOLIC 20172 ALBUMIN 4.1 g/dL 2017 Unknown COMPREHENSIVE METABOLIC 00618 CHLORIDE 108 mmol/L 11/28 Unknown COMPREHENSIVE METABOLIC 98637 Bili Total 0.5 mg/dL 11/28 Unknown COMPREHENSIVE METABOLIC 01676 ALK PHOS 53 U/L 2017 Unknown COMPREHENSIVE METABOLIC 17764 SODIUM 141 mmol/L 11/28 Unknown COMPREHENSIVE METABOLIC 03598 CREATININE 0.83 mg/dL 11/05 Unknown COMPREHENSIVE METABOLIC 30516 CALCIUM 9.1 mg/dL 2017 Unknown COMPREHENSIVE METABOLIC 54596 POTASSIUM 4.6 mmol/L 11/28 Unknown COMPREHENSIVE METABOLIC 02511 Total Protein 6.5 g/dL Unknown COMPREHENSIVE METABOLIC 82340 Glucose 106 mg/dL 2017 Unknown COMPREHENSIVE METABOLIC 76595 Bicarbonate 26 mmol/L 11/05 Unknown COMPREHENSIVE METABOLIC 66863 AGAP 7 mmol/L 2017 Unknown COMPLETE BLOOD COUNT [id number] WBC 5.1 10e9/L 11/28/19 18 Unknown COMPLETE BLOOD COUNT [id number] RBC 4.22 10e12/L 2017 Unknown COMPLETE BLOOD COUNT [id number] HEMOGLOBIN 13.5 g/dL 11/28/19 18 Unknown COMPLETE BLOOD COUNT [id number] HEMATOCRIT 39.1 % 11/28/19 18 Unknown COMPLETE BLOOD COUNT [id number] MCV 92.7 fL 8 Unknown COMPLETE BLOOD COUNT [id number] MCH 32.0 pg 8 Unknown COMPLETE BLOOD COUNT 0237096 MCHC 34.5 g/dL 8 Unknown COMPLETE BLOOD COUNT [id number] PLATELET COUNT 226 10e9/L Unknown COMPLETE BLOOD COUNT 8077625 Mean Plt Volume 9.6 fL Unknown COMPLETE BLOOD COUNT [id number] Neut Auto 49.5 % 8 Unknown COMPLETE BLOOD COUNT [id number] Lymph Auto 35.3 % 11/28/19 18 Unknown COMPLETE BLOOD COUNT 1238978 Mobile Auto 12.4 % 8 Unknown COMPLETE BLOOD COUNT 1601680 RDW 12.4 % 8 Unknown COMPLETE BLOOD COUNT 4676229 Eos Auto 2.2 % 8 Unknown COMPLETE BLOOD COUNT 7571942 Baso Auto 0.6 % 8 Unknown COMPLETE BLOOD COUNT 9553282 Neutrophil Abs 2.52 10e9/L Unknown COMPLETE BLOOD COUNT 5361005 Lymphocyte Abs 1.80 10e9/L Unknown COMPLETE BLOOD COUNT [id number] Monocyte Abs 0.63 10e9/L 11/05 Unknown COMPLETE BLOOD COUNT 8437474 Eosinophil Abs 0.11 10e9/L Unknown COMPLETE BLOOD COUNT [id number] RDW-SD 41.2 fL 8 Unknown COMPLETE BLOOD COUNT [id number] Basophil Abs 0.03 10e9/L 11/05 Unknown Procedures Procedure Codes Date FLU VACC PRSV FREE INC ANTIG 65 AND OLDER CPT-4: 69956 08/18/2021 FLU VACC PRSV FREE INC ANTIG 65 AND OLDER CPT-4: 92014 08/18/2021 ADMIN INFLUENZA VIRUS VAC CPT-4: G0008 08/18/2021 ROUTINE VENIPUNCTURE CPT-4: 28500 07/05/2021 PROTHROMBIN TIME CPT-4: 28537 07/05/2021 PPPS, subseq visit CPT-4: G0439 10/12/2020 ROUTINE VENIPUNCTURE CPT-4: 60866 04/06/2020 COMPREHEN METABOLIC PANEL CPT-4: 11428 04/06/2020 COMPLETE CBC W/AUTO DIFF WBC CPT-4: 83965 04/06/2020 PROTHROMBIN TIME CPT-4: 10871 04/06/2020 PPPS, subseq visit CPT-4: G0439 09/02/2019 ROUTINE VENIPUNCTURE CPT-4: 28215 09/02/2019 PROTHROMBIN TIME CPT-4: 88771 09/02/2019 FLU VACC PRSV FREE INC ANTIG 65 AND OLDER CPT-4: 05419 08/20/2018 PNEUMOCOCCAL VACC 23 BRIDGET IM CPT-4: 55770 08/20/2018 ADMIN INFLUENZA VIRUS VAC CPT-4: G0008 08/20/2018 ADMIN PNEUMOCOCCAL VACCINE CPT-4: G0009 08/20/2018 PPPS, subseq visit CPT-4: G0439 11/27/2017 FLU VACC PRSV FREE INC ANTIG 65 AND OLDER CPT-4: 09704 08/14/2017 PNEUMOCOCCAL VACC 13 BRIDGET IM CPT-4: 50340 08/14/2017 ADMIN INFLUENZA VIRUS VAC CPT-4: G0008 08/14/2017 ADMIN PNEUMOCOCCAL VACCINE CPT-4: G0009 08/14/2017 FLU VACC PRSV FREE INC ANTIG 65 AND OLDER CPT-4: 90933 10/03/2016 ADMIN INFLUENZA VIRUS VAC CPT-4: G0008 10/03/2016 PPPS, subseq visit CPT-4: G0439 10/10/2015 FLUZONE, 5ML (Medicare) CPT-4: Q2038 09/01/2014 ADMIN INFLUENZA VIRUS VAC CPT-4: G0008 09/01/2014 Vital Signs Date Vital 07/05/2021 Blood Pressure 1: 122/80 Code: 8480-6 Heart Rate 1: 92 bpm Respiratory Rate: 20 bpm SpO2: 96% Temperature: 36.8 (C) / 98.2 (F) We ight: 207 lbs Code: 35598-2 04/26/2021 Blood Pressure 1: 126/82 Code: 8480-6 Heart Rate 1: 104 bpm Respiratory Rate: 20 bpm SpO2: 96% Temperature: 36.7 (C) / 98.1 (F) We ight: 212 lbs Code: 16303-2 10/12/2020 Blood Pressure 1: 104/68 Code: 8480-6 BMI: 31.6 Code: 59690-1 Heart Rate 1: 96 bpm Height: 5'7" Code: 8302-2 Respiratory Rate: 20 bpm SpO2: 95% Temperature: 36.9 (C) / 98.5 (F) Weight: 202 lbs Code: 93133-6 07/13/2020 Blood Pressure 1: 128/72 Code: 8480-6 Heart Rate 1: 76 bpm Respiratory Rate: 18 bpm SpO2: 97% Temperature: 36.3 (C) / 97.3 (F) We ight: 190 lbs Code: 48274-8 04/06/2020 Blood Pressure 1: 106/68 Code: 8480-6 BMI: 29.1 Code: 83735-1 Heart Rate 1: 96 bpm Height: 5'7" Code: 8302-2 Respiratory Rate: 20 bpm SpO2: 96% Temperature: 36.8 (C) / 98.2 (F) Weight: 186 lbs Code: 36193-5 09/02/2019 Blood Pressure 1: 94/50 Code: 8480-6 BMI: 29.8 C ode: 33481-3 Heart Rate 1: 68 bpm Height: 5'7" Code: 8302-2 Respiratory Rate: 20 bpm SpO2: 96% Temperature: 36.6 (C) / 97.9 (F) Weight: 190 lbs Code: 90886-7 07/01/2019 Blood Pressure 1: 112/60 Code: 8480-6 Heart Rate 1: 88 bpm Respiratory Rate: 20 bpm SpO2: 94% Temperature: 36.8 (C) / 98.2 (F) We ight: 201 lbs Code: 52283-0 05/27/2019 Blood Pressure 1: 104/50 Code: 8480-6 Heart Rate 1: 62 bpm SpO2: 95% Temperature: 36.3 (C) / 97.4 (F) Weight: 204 lbs Code: 02673-6 04/22/2019 Blood Pressure 1: 112/72 Code: 8480-6 Heart Rate 1: 64 bpm Respiratory Rate: 20 bpm SpO2: 95% Temperature: 36.8 (C) / 98.2 (F) We ight: 207 lbs Code: 18482-5 02/09/2019 Blood Pressure 1: 104/60 Code: 8480-6 Heart Rate 1: 72 bpm Respiratory Rate: 20 bpm SpO2: 95% Temperature: 37.1 (C) / 98.8 (F) We ight: 216 lbs Code: 11742-8 01/07/2019 Blood Pressure 1: 122/74 Code: 8480-6 Heart Rate 1: 96 bpm Respiratory Rate: 20 bpm SpO2: 96% Temperature: 36.7 (C) / 98.1 (F) We ight: 219 lbs Code: 83971-3 07/09/2018 Blood Pressure 1: 118/65 Code: 8480-6 Heart Rate 1: 62 bpm SpO2: 94% Temperature: 36.2 (C) / 97.1 (F) Weight: 237 lbs Code: 84612-5 11/27/2017 Blood Pressure 1: 124/70 Code: 8480-6 BMI: 35.2 Code: 36651-7 Heart Rate 1: 64 bpm Height: 5'8" Code: 8302-2 Respiratory Rate: 20 bpm SpO2: 94% Temperature: 36.9 (C) / 98.5 (F) Weight: 235 lbs Code: 20552-7 10/10/2015 Blood Pressure 1: 126/78 Code: 8480-6 BMI: 36.0 Code: 92380-2 Heart Rate 1: 72 bpm Height: 5'8" Code: 8302-2 Respiratory Rate: 20 bpm Temperatu re: 36.9 (C) / 98.4 (F) Weight: 240 lbs Code: 24309-3 09/01/2014 Blood Pressure 1: 114/70 Code: 8480-6 BMI: 35.4 Code: 11140-6 Heart Rate 1: 76 bpm Height: 5'8" Code: 8302-2 Respiratory Rate: 20 bpm Temperatu re: 36.7 (C) / 98.1 (F) Weight: 236 lbs Code: 73095-3 07/02/2013 Blood Pressure 1: 124/90 Code: 8480-6 BMI: 33.7 Code: 68529-5 Heart Rate 1: 76 bpm Height: 5'8" Code: 8302-2 Respiratory Rate: 20 bpm Temperatu re: 36.6 (C) / 97.8 (F) Weight: 225 lbs Code: 20292-6 06/25/2012 Blood Pressure 1: 144/100 Code: 8480-6 BMI: 34.5 Code: 95383-7 Heart Rate 1: 76 bpm Height: 5'8" Code: 8302-2 Respiratory Rate: 20 bpm Temperatu re: 36.6 (C) / 97.9 (F) Weight: 230 lbs Code: 57919-2 05/15/2012 Blood Pressure 1: 112/70 Code: 8480-6 BMI: 34.6 Code: 49445-9 Heart Rate 1: 76 bpm Height: 5'8" Code: 8302-2 Respiratory Rate: 20 bpm Temperatu re: 37.0 (C) / 98.6 (F) Weight: 231 lbs Code: 02650-2 12/06/2011 Blood Pressure 1: 142/90 Code: 8480-6 BMI: 35.4 Code: 07249-8 Heart Rate 1: 72 bpm Height: 5'8" Code: 8302-2 Respiratory Rate: 20 bpm Temperatu re: 36.9 (C) / 98.4 (F) Weight: 236 lbs Code: 68335-5 10/30/2010 Blood Pressure 1: 114/78 Code: 8480-6 Heart Rate 1: 76 bpm Temperature: 36.3 (C) / 97.4 (F) Weight: 228 lbs Code: 52071-7 Functional Status No Functional Status data Reason For Visit Reason For Visit Effective Dates Notes injection(s) 08/18/2021 flu shot follow up 07/05/2021 [...] Codes Date () NURSE/OUTPATIENT VISIT EST Diagnosis: FLU VACCINE[ICD10: Z23] [facility] CPT-4: 72635 08/18/2021 ([id number]) OFFICE/OUTPATIENT VISIT EST Diagnosis: Parkinson disease[ICD10: G20] 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 CPT-4: 29350 07/05/2021 ([id number]) OFFICE/OUTPATIENT VISIT EST Diagnosis: Parkinson disease[ICD10: G20] Diagnosis: Dementia[ICD10: F03.90] Roxie MOSQUERA DO [facility] CPT-4: 99028 04/26/2021 ([id number]) OFFICE/OUTPATIENT VISIT EST Diagnosis: 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] Diagnosis: 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: G30.9] Roxie LOPEZ DO [facility] CPT-4: 50142 07/13/2020 ([id number]) OFFICE/OUTPATIENT VISIT EST Diagnosis: Alzheimer's disease, unspecified[ICD10: G30.9] Roxie LOPEZ DO [facility] CPT-4: 50750 04/06/2020 ([id number]) OFFICE/OUTPATIENT VISIT EST Diagnosis: Alzheimer's disease with late onset[ICD10: G30.1] Diagnosis: Generalized anxiety disorder[ICD10: F41.1] Diagnosis: Unspecified dementia with behavioral disturbance[ICD10: F03.91] Roxie LOPEZ DO [facility] CPT-4: 49660 07/01/2019 ([id number]) OFFICE/OUTPATIENT VISIT EST Diagnosis: Alzheimer's disease with late onset[ICD10: G30.1] Diagnosis: Abnormal weight loss[ICD10: R63.4] Diagnosis: Essential (primary) hypertension[ICD10: I10] Diagnosis: Melena[ICD10: K92.1] Diagnosis: Unspecified dementia with behavioral disturbance[ICD10: F03.91] Diagnosis: Spontaneous ecchymoses[ICD10: R23.3] Roxie LOPEZ Frodio 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 CPT-4: 12241 04/22/2019 ([id number]) OFFICE/OUTPATIENT VISIT EST Diagnosis: 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] Diagnosis: Slow transit constipation[ICD10: K59.01] Diagnosis: Unspecified dementia with behavioral disturbance[ICD10: F03.91] Roxie LOPEZ [facility] CPT-4: 97424 02/09/2019 ([id number]) OFFICE/OUTPATIENT VISIT EST Diagnosis: Alzheimer's disease with late onset[ICD10: G30.1] Diagnosis: 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] Diagnosis: Nocturia[ICD10: R35.1] Diagnosis: Constipation, unspecified[ICD10: K59.00] Roxie LOPEZ [facility] CPT-4: 11853 01/07/2019 ([id number]) NURSE/OUTPATIENT VISIT EST Diagnosis: FLU VACCINE[ICD10: Z23] Diagnosis: PNEUMOCOCCAL VACCINE[ICD10: Z23] Roxie LOPEZ [facility] CPT-4: 47311 08/20/2018 ([id number]) OFFICE/OUTPATIENT VISIT EST Diagnosis: Mixed hyperlipidemia[ICD10: E78.2] Diagnosis: Essential (primary) hypertension[ICD10: I10] Diagnosis: Alzheimer's disease, unspecified[ICD10: G30.9] Roxie LOPEZ [facility] CPT-4: 36606 07/09/2018 ([id number]) OFFICE/OUTPATIENT VISIT EST Diagnosis: PNEUMOCOCCAL VACCINE[ICD10: Z23] Diagnosis: FLU VACCINE[ICD10: Z23] Roxie BRYSON [facility] CPT-4: 32567 08/14/2017 ([id number]) OFFICE/OUTPATIENT VISIT EST Diagnosis: FLU VACCINE[ICD10: Z23] Roxie BRYSON [facility] CPT-4: 78545 10/03/2016 ([id number]) OFFICE/OUTPATIENT VISIT EST Diagnosis: HYPERTENSION[ICD9: 401.9] Diagnosis: HYPERLIPIDEMIA NEC/NOS[ICD9: 272.4] Diagnosis: MEMORY LOSS[ICD9: 780.93] Diagnosis: - I - ANXIETY STATE NOS[ICD9: 300.00] Diagnosis: FLU VACCINE[ICD10: Z23] Roxie FAUSTIN RmDiane BRAYDON ER [facility] CPT-4: 75860 09/01/2014 OFFICE/OUTPATIENT VISIT EST Diagnosis: HYPERTENSION[ICD9: 401.9] Diagnosis: CAD[ICD9: 414.00] Diagnosis: HYPERLIPIDEMIA NEC/NOS[ICD9: 272.4] Diagnosis: MEMORY LOSS[ICD9: 780.93] Diagnosis: ANXIETY STATE NOS[ICD9: 300.00] Diagnosis: Testicular pain[ICD9: 608.9] Roxie FAUSTIN RmDiane JULIO [facility] CPT-4: 12533 07/02/2013 ([id number]) OFFICE/OUTPATIENT VISIT EST Diagnosis: MEMORY LOSS[ICD9: 780.93] Roxie FAUSTIN RmDiane DONNA SIMMONS [facility] CPT-4: 44839 06/25/2012 ([id number]) OFFICE/OUTPATIENT VISIT EST Diagnosis: HYPERLIPIDEMIA NEC/NOS[ICD9: 272.4] Diagnosis: HYPERTENSION[ICD9: 401.9] Diagnosis: CAD[ICD9: 414.00] Diagnosis: MEMORY LOSS[ICD9: 780.93] Rxoie FAUSTIN RmDiane DONNA SIMMONS [facility] CPT-4: 43801 05/15/2012 PER PM REEVAL EST PAT 65+ YR Diagnosis: ROUTINE MEDICAL EXAM[ICD9: V70.0] Diagnosis: HYPERLIPIDEMIA NEC/NOS[ICD9: 272.4] Diagnosis: HYPERTENSION[ICD9: 401.9] Diagnosis: CAD[ICD9: 414.00] Diagnosis: Seborrheic dermatitis[ICD9: 690.10] Roxie PERRY RmDiane JULIO Frodio [facility] CPT-4: 05575 12/06/2011 ([id number]) OFFICE/OUTPATIENT VISIT, EST Roxie GENTILE RmDiane JULIO Frodio [facility] CPT-4: 21463 10/30/2010 Plan of Care Planned Activity Notes Codes Status Date Visit Diagnosis Plan: Parkinson disease Discussion: In crease sinemet 25/100mg 2po BID Call in 1month ICD-9 : 332.0 ICD-10 : G20 07/05/2021 Visit Diagnosis Plan: longterm (current) use of antic oagulants Discussion: PT/INR drawn ICD-9 : V58.61 ICD-10 : Z79.01 07/05/2021 Appointment: Roxie Lopeztel: [address] [place] [address] [place] FOLLOW UP 07/05/2021 Visit Diagnosis Plan: Parkinson disease Discussion: Tr ial of sinemet 25/100mg po BID Fwup 2mos ICD-9 : 332.0 ICD-10 : G20 04/26/2021 Appointment: Roxie Lopez WPtel: [address] [place], [place] [phone] [place] FOLLOW UP 04/26/2021 Appointment: Roxie Lopeztel: [address] [place] [address] [place] CANCELED 01/11/2021 Visit Diagnosis Plan: [facility] abnormal [...] ICD-10 : G30.1 10/12/2020 Visit Diagnosis 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: 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 Discussion: Update PT/INR ICD-9 : V58.61 ICD-10 : Z79.01 10/12/2020 Appointment: Roxie Lopeztel: [address] [place], [place] [phone] [place] Annual Well Visit 10/12/2020 Visit Diagnosis [...] : F02.81 07/13/2020 Appointment: Roxie Lopez WPtel: [address] [place], [place] [phone] [place] FOLLOW UP 07/13/2020 Care Plan: PT Pending 06/27/2020 Visit Diagnosis Plan: Alzheimer's disease, unspecified Discussion: Worsening has started OTC supplements Inquiring about meals on wheels Follow Up: 3 months ICD-9 : 331.0 ICD-10 : G30.9 04/06/2020 Appointment: Roxie Lopez WPtel: [id number] [place] FOLLOW UP 04/06/2020 Care Plan: Referral Order SNOMED-CT : [id number] Pending 04/06/2020 Appointment: Roxie Lopez WPtel: [address] [place], [place] [phone] [place] RESCHEDULED 02/24/2020 Care Plan: COMPREH[place] : 32195-9 Pending 12/14/2019 Care Plan: LIPID PANEL LOINC : 06497-3 Pending 12/14/2019 Care Plan: PT Pending 12/14/2019 [...] 09/02/2019 Visit Diagnosis Plan: Hypotension Discussion: DC nishant peteol ICD-9 : 458.9 ICD-10 : I95.9 09/02/2019 Visit Diagnosis Plan: Encounter for gene [facility] adult medical examination without abnormal findings Discussion: Mediterranean diet Combinati on of cardio and weight bearing exercise DC pravastatin ICD-9 : V70.0 ICD-10 : Z00.00 09/02/2019 Visit Diagnosis Plan: Encounter for therapeutic drug l evel monitoring Discussion: Check PT/INR ICD-9 : V58.61 ICD-10 : Z51.81 09/02/2019 Appointment: Roxie Lopez WPtel: [address] [place] [address] [place] originally 2 mo follow up Annual Well Visit 08/06 Visit Diagnosis Plan: Generalized anxiety disorder Dis cussion: Depakote already helping Follow Up: 2 months ICD-9 : 300.00 ICD-10 : F41.1 07/01/2019 Appointment: Roxie Lopez WPtel: [address] [place] [address] [place] FOLLOW UP 07/01/2019 Visit Diagnosis Plan: [...] : K92.1 05/27/2019 Appointment: Roxie Lopez WPtel: [address] [place] [address] [place] FOLLOW UP 05/27/2019 Visit Diagnosis Plan: [...] : F51.04 04/22/2019 Appointment: Roxie Lopez WPtel: [address] [place], [place] [phone] FOLLOW UP 04/22/2019 Visit Diagnosis Plan: Unspecified [...] : K59.01 02/09/2019 Appointment: Roxie Lopez WPtel: [address] [place], [place] [phone] FOLLOW UP 02/09/2019 Patient Education: escitalopram oxalate- [employer] [id number] Completed 02/09/2019 Patient Education: doxepin- [employer] [id number] Completed 02/09/2019 Visit Diagnosis Plan: Nocturia Discussion: [...] : F51.04 01/07/2019 Appointment: Roxie Lopez WPtel: [address] [place], [place] [phone] FOLLOW UP 01/07/2019 Patient Education: tamsulosin- [employer] [id number] Completed 01/07/2019 Patient Education: doxepin- [employer] [id number] Completed 01/07/2019 Care Plan: COMPREH[place] : 65817-6 Pending 12/17/2018 Care Plan: CBC Pending 12/17/2018 Care Plan: LIPID PANEL LOINC : 11649-6 Pending 12/17/2018 Appointment: Roxie Lopez WPtel: [address] [place] [address] [place] INJECTION 08/20/2018 Patient Education: Patient Medication [...] : I10 07/09/2018 Appointment: Roxie Lopez WPtel: [address] [place] [address] FOLLOW UP 07/09/2018 Patient Education: Patient Medication Summary Completed 07/09/2018 Visit Diagnosis Plan: Generalized anxiety disorder Dis cussion: Add lexapro 10mg q HS ICD-9 : 300.00 ICD-10 : F41.1 11/27/2017 Visit Diagnosis Plan: Alzheimer's disease, unspecified Discussion: Change Namenda XR to Namenda 10mg po BI Follow Up: 3 months ICD-9 : 331.0 ICD-10 : G30.9 11/27/2017 Visit Diagnosis Plan: [facility] findings Discussion: Update fasting lab ICD-9 : V70.0 ICD-10 : Z00.00 11/27/2017 Appointment: Roxie Lopez WPtel: [address] [place], [place] [address] Annual Well Visit 11/27/2017 Patient Education: Patient Medication Summary Completed 11/27/2017 Patient Education: Patient Medication Summary Completed 11/14/2017 Care Plan: CBC Pending 11/14/2017 Care Plan: PT Pending 11/14/2017 Care Plan: COMPREHEN METABOLIC PANEL TRU[place] : [id number] Pending 11/14/2017 Care Plan: LIPID PANEL LOINC : [id number] Pending 11/14/2017 Care Plan: ASSAY THYROID STIM HORMONE Pen ding 11/14/2017 Appointment: Roxie Lopez WPtel: [address] [place], [place] [phone] [place] INJECTION 08/14/2017 Patient Education: Patient Medication Summary Completed 08/14/2017 Appointment: Roxie Lopez WPtel: [address] [place], [place] [phone] [place] INJECTION 10/03/2016 Patient Education: Patient Medication Summary Completed 10/03/2016 Patient Education: Patient Medication Summary Completed 01/02/2016 Care Plan: CBC Ordered 01/02/2016 Visit Plan: Check fasting lab with next PT/INR Continue current meds Discussed trial of PPI but states gaviscon works if will take so will just try it 10/10/2015 Appointment: Roxie Lopez WPtel: [address] [place], [place] [phone] 10/07/15 appt confirmed cn Annual Well Visit 05/2015 Patient Education: Patient Medication Summary Completed 10/10/2015 Appointment: Roxie Lopez WPtel: [address] [place], [place] [phone] 08/31 no answer cell # 08/31 vm 2nd # FOLLOW UP 09/01/2014 Patient Education: Patient Medication Summary Completed 09/01/2014 Patient Education: Patient Medication Summary Completed 08/23/2014 Visit Plan: Lab discussed Check testicul ar US Change namenda to Namenda XR 23mg QD Check PSA 07/02/2013 Appointment: Roxie Lopez WPtel: [address] [place] [address] ACUTE ILLNESS 07/02/2013 Patient Education: Patient Medication Summary Completed 07/02/2013 Visit Plan: Continue namenda 10mg po BID Discussed aricept 06/25/2012 Appointment: Roxie Lopez WPtel: [address] [place] [address] confirmed w ACUTE ILLNESS 06/25/2012 Patient Education: Patient Medication Summary Completed 06/25/2012 Appointment: Roxie Lopez WPtel: [address] [place] [address] FOLLOW UP 05/15/2012 Patient Education: Patient Medication Summary Completed 05/15/2012 Visit Plan: Continue current meds Lab di scussed Long discussion about meds, diet, exercise and weight loss for decreasing TG and elevating HDL Add Nystatin/TAC cream to use prn 12/06/2011 Appointment: Roxie Lopez WPtel: [address] [place] [address] CHECK UP 12/06/2011 Patient Education: Patient Medication Summary Completed 12/06/2011 Visit Plan: Check fasting lab--CMP, lipi ds, PSA, PT/INR Loan deferment paperwork filled out 10/30/2010 Appointment: Roxie Lopez WPtel: [address] [place] [address] ESTABLISHED PATIENT 10/30/2010 Patient Education: Patient Medication Summary Completed 10/30/2010 Referral: Angeline Arellano WPtel: [address] [place] [address] Referral Appointment Requested Instructions Comment . Check [...]
--- OUTSIDE RECORDS SUMMARY | 2021-10-12 10:17 | XMS REPORT | CCD ---
Author Author Ronnie Lopez D.O. Organization [facility] Address [address] [place] [address] Phone Care Team Providers Care Film Casting Operator Name Role Phone Arlyn Lopez D.O., PP Unavailable CCM Unavailable Summary Purpose Interface Exchange Insurance Providers Payer name Policy type / Coverage type Covered alliance party ID Effective Begin Date Effective End Date [employer] Medicare [id number] Unknown Family History Family History data not found Social History Social History Element Codes Description Effective Dates Marital status Unknown 12/06/[address]: 9687942 Former smoker 2000 12/06/2011 Allergies, Adverse Reactions, Alerts Substance Reaction Codes Entered Date Inactivated Date Status * NO KNOWN FOOD ALLERGIES Unknown 10/30/2010 No Inactiv e Date Active PENICILLINS Unknown 10/30/2010 No Inactive Date Active * NO KNOWN ENVIRONMENTAL ALLERGIES Unknown 10/30/2010 N o Inactive Date Active Problems Condition Codes Effective Dates Condition Status FLU VACCINE ICD-10: Z23 ICD-9: V04.81 10/02/2016 Active long-term (current) use of anticoagulants ICD-10: Z79. 01 [...] 788.43 01/07/2019 Active Atherosclerotic heart disease of [place] coronary arter y without angina pectoris ICD-10: [...] Fill Instructions warfarin 2 mg tablet RxNorm: 192045 TAKE 1 AND 1/2 TABL ETS ON SATURDAY, SATURDAY, SATURDAY, SATURDAY AND TAKE 2 TABLETS ON SATURDAY, SATURDAY AND Saturday08/23/2021 11/20/2021 Active memantine 10 mg tablet RxNorm: 727574 TAKE 1 TABLET TWI CE DAILY (REPLACES NAMENDA XR) 06/26/2021 09/23/2021 Active escitalopram 20 mg tablet RxNorm: 513657 TAKE 1 TABLET AT BEDTIME 0 06/26/2021 09/23/2021 Active tamsulosin 0.4 mg capsule RxNorm: 856799 TAKE 1 CAPSULE EVERY DAY 0 06/26/2021 09/23/2021 Active carbidopa 25 mg-levodopa 100 mg tablet RxNorm: 098903 T PHAM 1 TABLET TWICE DAILY FOR TREMORS 06/26/2021 07/04/2021 Inactive warfarin 2 mg tablet RxNorm: 101340 TAKE 1 AND 1/2 TABL ETS ON SATURDAY, SATURDAY, SATURDAY, SATURDAY AND TAKE 2 TABLETS ON SATURDAY, SATURDAY AND Saturday06/26/2021 06/26/2021 Inactive Sinemet 25 mg-100 mg tablet RxNorm: 366784 Take 1 Table t(s) Oral two times a day for tremors 04/26/2021 04/26/2021 Inactive memantine 10 mg tablet RxNorm: 053400 TAKE 1 TABLET TWI CE DAILY (REPLACES NAMENDA XR) 04/12/2021 04/12/2021 Inactive warfarin 2 mg tablet RxNorm: 004306 2 Tablet(s) Oral Mo through Saturday and 1.5 tablets on Saturday/Saturday01/19/2021 No Stop Date Active tamsulosin 0.4 mg capsule RxNorm: 783530 TAKE 1 CAPSULE EVERY DAY 0 12/19/2020 12/19/2020 Inactive warfarin 2 mg tablet RxNorm: 398798 TAKE 1 AND 1/2 TABL ETS ON SATURDAY, SATURDAY, SATURDAY, SATURDAY AND TAKE 2 TABLETS ON SATURDAY, SATURDAY AND Saturday12/12/2020 01/18/2021 Inactive escitalopram 20 mg tablet RxNorm: 055064 TAKE 1 TABLET AT BEDTIME 0 11/28/2020 11/28/2020 Inactive Namenda 10 mg tablet RxNorm: 363434 TAKE 1 TABLET TWICE DAILY (REPLACES NAMENDA XR) 10/17/2020 10/17/2020 Inactive melatonin 10 mg capsule RxNorm: 195363 1 Capsule(s) Oral QD 020 No Stop Date Active tamsulosin 0.4 mg capsule RxNorm: 397554 TAKE 1 CAPSULE EVERY DAY 1 12/18/2020 Inactive warfarin 2 mg tablet RxNorm: 435793 TAKE 1 AND 1/2 TABL ETS ON SATURDAY, SATURDAY, SATURDAY, SATURDAY AND TAKE 2 TABLETS ON SATURDAY, SATURDAY AND Saturday07/12/2020 12/11/2020 Inactive warfarin 2 mg tablet RxNorm: 614934 TAKE 1 AND 1/2 TABL ETS ON SATURDAY, SATURDAY, SATURDAY, SATURDAY AND TAKE 2 TABLETS ON SATURDAY, SATURDAY AND Saturday06/27/2020 07/11/2020 Inactive Namenda 10 mg tablet RxNorm: 005176 TAKE 1 TABLET TWICE DAILY (REPLACES NAMENDA XR) 04/18/2020 10/16/2020 Inactive tamsulosin 0.4 mg capsule RxNorm: 471219 1 Capsule(s) Oral QD 02/1108/10/2020 Inactive Depakote ER 250 mg tablet,extended release RxNorm: 3024030 1 Tab let(s) Oral QPM 01/21/2020 04/20/2020 Inactive warfarin 2 mg tablet RxNorm: 854696 TAKE 1 AND 1/2 TABL ETS ON SATURDAY, SATURDAY, SATURDAY AND SATURDAY AND TAKE 2 TABLETS ON SATURDAY, SATURDAY AND Saturday12/14/2019 06/26/2020 Inactive escitalopram 20 mg tablet RxNorm: 033891 TAKE 1 TABLET AT BEDTIME 0 11/16/2019 11/27/2020 Inactive Namenda 10 mg tablet RxNorm: 921896 TAKE 1 TABLET TWICE DAILY (REPLACES NAMENDA XR) 10/08/2019 04/17/2020 Inactive tamsulosin 0.4 mg capsule RxNorm: 738651 1 Capsule(s) Oral QD 09/0202/11/2020 Inactive warfarin 2 mg tablet RxNorm: 248543 1.5 Tablet(s) PO on , , Sat, and Sun and 2 tablets on Sat, Sat, Sat07/13/2019 07/12/2019 Inactive Depakote ER 250 mg tablet,extended release RxNorm: 0046841 1 Tab let(s) PO BID 06/08/2019 09/05/2019 Inactive pravastatin 80 mg tablet RxNorm: 320196 TAKE 1 TABLET EVERY DAY 11/201809/01/2019 Inactive warfarin 2 mg tablet RxNorm: 327492 TAKE 1 AND 1/2 TABS ON SATURDAY,SATURDAY AND SATURDAY AND TAKE 2 TABS ON , , SAT AND SUN (NEED MD APPOINTMENT) 03/09/2019 07/13/2019 Inactive Namenda 10 mg tablet RxNorm: 462049 TAKE 1 TABLET TWICE DAILY (REPLACES NAMENDA XR) 02/09/2019 08/07/2019 Inactive doxepin 25 mg capsule RxNorm: 9273337 1 Capsule(s) PO QH S for sleep replaces 10mg dose 02/09/2019 04/21/2019 Inactive escitalopram 20 mg tablet RxNorm: 876767 1 Tablet(s) PO QHS 019 08/07/2019 Inactive tamsulosin 0.4 mg capsule RxNorm: 704978 1 Capsule(s) P O QPM for urinary frequency 01/07/2019 02/12/2020 Inactive divalproex 250 mg tablet,delayed release RxNorm: 9463598 1 Table t(s) PO QHS 01/07/2019 01/07/2019 Inactive doxepin 10 mg capsule RxNorm: 7882964 1-2 Capsule(s) PO QHS as n eeded for sleep 01/07/2019 02/08/2019 Inactive warfarin 2 mg tablet RxNorm: 371494 1 1/2 Tablet(s) PO MWF and 2 tablets on T Th Sat and Sun 12/29/2018 03/08/2019 Inactive metoprolol tartrate 50 mg tablet RxNorm: 295132 TAKE 1 TABLET T WICE DAILY 12/01/2018 06/30/2019 Inactive Namenda 10 mg tablet RxNorm: 093384 TAKE 1 TABLET TWICE DAILY (REPLACES NAMENDA XR) 09/22/2018 02/08/2019 Inactive warfarin 2 mg tablet RxNorm: 488574 1 1/2 Tablet(s) PO MWF and 2 tablets on T Th Sat and Sun 09/02/2018 09/01/2018 Inactive escitalopram 10 mg tablet RxNorm: 201841 1 Tablet(s) PO QHS 018 02/08/2019 Inactive pravastatin 80 mg tablet RxNorm: 233422 1 Tablet(s) PO QD 01/28/2018 10/24/2018 Inactive Namenda 10 mg tablet RxNorm: 683732 1 Tablet(s) PO BID 11/27/2017 Inactive escitalopram 10 mg tablet RxNorm: 130392 1 Tablet(s) PO QHS 018 06/09/2018 Inactive Namenda XR 28 mg capsule sprinkle,extended release RxNorm: 9 80698 TAKE ONE CAPSULE BY MOUTH ONCE DAILY 10/10/2017 11/26/2017 Inactive metoprolol tartrate 50 mg tablet RxNorm: 765226 Tablet( s) TAKE 1 TABLET TWICE DAILY 10/03/2017 09/27/2018 Inactive warfarin 2 mg tablet RxNorm: 989021 Tablet(s) TAKE 2 TA BLETS SATURDAY THROUGH SATURDAY AND 1 TABLET SATURDAY AND Saturday05/09/2017 09/02/2018 Inactive divalproex 250 mg tablet,delayed release RxNorm: 3454628 TAKE 1 TABLET TWICE DAILY 02/19/2017 01/06/2019 Inactive Namenda XR 28 mg capsule sprinkle,extended release RxNorm: 9 07895 TAKE 1 CAPSULE EVERY DAY 02/11/2017 10/09/2017 Inactive pravastatin 80 mg tablet RxNorm: 925160 1 Tablet(s) PO QD 01/21/2017 01/28/2018 Inactive Namenda XR 28 mg capsule sprinkle,extended release RxNorm: 9 00348 TAKE ONE CAPSULE BY MOUTH ONCE DAILY 09/24/2016 02/10/2017 Inactive metoprolol tartrate 50 mg tablet RxNorm: 111444 TAKE 1 TABLET T WICE DAILY 09/10/2016 10/03/2017 Inactive warfarin 2 mg tablet RxNorm: 718042 TAKE 2 TABLETS THROUGH SATURDAY AND 1 TABLET SATURDAY AND Saturday2016 05/09/2017 Inactive divalproex 250 mg tablet,delayed release RxNorm: 3244457 1 Table t(s) PO QHS 12/19/2015 12/12/2016 Inactive pravastatin 80 mg tablet RxNorm: 678776 1 Tablet(s) PO QD 12/19/2015 01/21/2017 Inactive Namenda XR 28 mg capsule sprinkle,extended release RxNorm: 9 77302 1 Capsule(s) PO QD 11/11/2015 09/23/2016 Inactive divalproex 250 mg tablet,delayed release RxNorm: 4014246 1 Table t(s) PO QHS 10/10/2015 12/19/2015 Inactive Namenda XR 28 mg capsule sprinkle,extended release RxNorm: 9 87982 1 Capsule(s) PO QD TAKE 1 CAPSULE EVERY DAY 11/09/2014 11/11/2015 Inactive Namenda XR 28 mg capsule sprinkle,ER 24hr RxNorm: 607616 1 PO QD TAKE ONE CAPSULE BY MOUTH ONCE DAILY 10/07/2014 11/09/2014 Inactive Namenda XR 28 mg capsule sprinkle,ER 24hr RxNorm: 366259 1 Caps ule(s) PO QD 11/10/2013 10/07/2014 Inactive metoprolol tartrate 50 mg tablet RxNorm: 961193 1 Tablet(s) PO BID 05/14/2013 05/08/2014 Inactive 1BID (REPLACES TOPROL) - KIMBERLEY E ONE TABLET BY MOUTH TWICE DAILY (REPLACES TOPROL) Ativan 1 mg tablet RxNorm: 767396 1 Tablet(s) PO BID 05/01/201310/09 Inactive as needed for anxiety pravastatin 40 mg tablet RxNorm: 797029 1 Tablet(s) PO QD due for labs in late summer03/26/2013 11/10/2014 Inactive warfarin 2 mg tablet RxNorm: 023711 1 Tablet(s) PO Take 2 tablets by mouth Saturday through Saturday and 1 tablet on Saturday and Saturday10/07/2012 Inactive pravastatin 40 mg tablet RxNorm: 509953 1 Tablet(s) PO QD 08/13/2012 03/26/2013 Inactive metoprolol tartrate 50 mg tablet RxNorm: 640403 1 Tablet(s) PO BID 08/13/2012 05/14/2013 Inactive 1BID (REPLACES TOPROL) - KIMBERELY E ONE TABLET BY MOUTH TWICE DAILY (REPLACES TOPROL) warfarin 2 mg tablet RxNorm: 827363 1 Tablet(s) PO QD 08/13/201202/2012 Inactive warfarin 2 mg tablet RxNorm: 188346 Tablet(s) PO 11/07/2011 08/13/2012 Inactive 2QD - TAKE TWO TABLETS BY MOUTH EVERY DAY SATURDAY THROUGH SATURDAY AND 1 TABLET ON SATURDAY AND SATURDAY pravastatin 40 mg tablet RxNorm: 752008 1 Tablet(s) PO QD 10/15/2011 08/13/2012 Inactive Ativan 1 mg tablet RxNorm: 818319 1 Tablet(s) PO BID 10/01/201109/30 Active as needed for anxiety metoprolol tartrate 50 mg tablet RxNorm: 743891 1 Tablet(s) PO BID 08/27/2011 08/13/2012 Inactive 1BID (REPLACES TOPROL) - [place] E ONE TABLET BY MOUTH TWICE DAILY (REPLACES TOPROL) pravastatin 40 mg Tab RxNorm: 206752 1 Tablet(s) PO QD 07/10/201109/2011 Inactive Ativan 1 mg Tab RxNorm: 493888 1 Tablet(s) PO BID 07/02/2011 1 Active as needed for anxiety metoprolol tartrate 50 mg Tab RxNorm: 290933 1 Tablet(s ) PO BID 1BID (REPLACES TOPROL) - TAKE ONE TABLET BY MOUTH TWICE DAILY (REPLACES TOPROL) 03/12/2011 08/26/2011 Inactive Ativan 1 mg Tab RxNorm: 412098 1 Tablet(s) PO BID as needed for anxiety 02/26/2011 02/25/2011 Active warfarin 2 mg Tab RxNorm: 652325 Tablet(s) PO 2QD - T PHAM TWO TABLETS BY MOUTH EVERY DAY SATURDAY THROUGH SATURDAY AND 1 TABLET ON SATURDAY AND Saturday12/18/2010 11/07/2011 Inactive Ativan 1 mg Tab RxNorm: 007705 1 Tablet(s) PO BID PRN for anxiety 0 11/06/2010 01/06/2019 Inactive metoprolol tartrate 50 mg Tab RxNorm: 897914 1 Tablet(s ) PO BID 1BID (REPLACES TOPROL) - TAKE ONE TABLET BY MOUTH TWICE DAILY (REPLACES TOPROL) 09/11/2010 03/12/2011 Inactive Ativan 1 mg Tab RxNorm: 435456 1 Tablet(s) PO BID PRN for anxiety 1 11/06/2010 Inactive warfarin 2 mg Tab RxNorm: 778786 Tablet(s) PO 2QD - T PHAM TWO TABLETS BY MOUTH EVERY DAY SATURDAY THROUGH SATURDAY AND 1 TABLET ON SATURDAY AND Saturday07/24/2010 10/29/2010 Inactive metoprolol tartrate 50 mg Tab RxNorm: 993259 1 Tablet(s) PO QD 01/201009/11/2010 Inactive pravastatin 40 mg Tab RxNorm: 597044 1 Tablet(s) PO QD 06/06/201004/2011 Inactive Warfarin 2 mg Tab RxNorm: 277576 2 Tablet(s) PO QD 2 tablets by mouth Saturday through Saturday, and one tablet by mouth on Saturday and Saturday. 06/06/2010 07/23/2010 Inactive Ativan 1 mg Tab RxNorm: 144430 1 Tablet(s) PO QHS PRN for anxiety 0 06/06/2010 08/27/2010 Inactive Pravastatin 40 mg Tab RxNorm: 044060 1 Tablet(s) PO QD 04/14/201012/2009 Inactive Ativan 1 mg Tab RxNorm: 795413 1 Tablet(s) PO BID PRN for anxiety 0 02/23/2010 06/02/2010 Inactive Probiotic oral RxNorm: 6205 oral 04/07/2020 Active Stopover 3 Natural Fish Oil Conc capsule RxNorm: 1 Capsule(s) PO QD 0 11/27/2017 Active turmeric-turmeric root extract oral RxNorm: 3897960 oral 11/27/19 18 Active magnesium oral RxNorm: 6574 oral 04/07/2020 Active Vitamin D3 5,000 unit tablet RxNorm: 476242 1 Tablet(s) PO QD 019 Active warfarin 2 mg tablet RxNorm: 967553 1 Tablet(s) PO QD 08/13/201207/2012 Inactive Ativan 1 mg Tab RxNorm: 237382 1 Tablet(s) PO BID as needed for anxiety 02/26/2011 02/25/2011 Inactive warfarin 2 mg Tab RxNorm: 031031 2 Tablet(s) PO QD saturday06/06/2012 06/05/2012 Inactive Tricor 145 mg Tab RxNorm: 902885 1 Tablet(s) PO QD 12/06/2011 012 Inactive warfarin 4 mg tablet RxNorm: 210637 Tablet(s) PO 11/27/2017 11/26/2017 Inactive warfarin 2 mg Tab RxNorm: 048290 1 Tablet(s) PO QD on saturday and saturday06/06/2012 06/05/2012 Inactive warfarin 2 mg tablet RxNorm: 055720 1.5 Tablet(s) PO on , , Sat, and Sat and 2 tablets on Sat, Sat, Sat07/13/2019 07/12/2019 Inactive pravastatin 80 mg tablet RxNorm: 082175 1 Tablet(s) PO QD 12/19/2015 12/19/2015 Inactive metoprolol tartrate 50 mg tablet RxNorm: 093966 1 Tablet(s) PO QD 1 09/01/2019 Inactive Warfarin 2 mg Tab RxNorm: 554905 Tablet(s) PO 2 table ts by mouth Saturday through Saturday, and one tablet by mouth on Saturday and Saturday. 06/06/201012/2009 Inactive Namenda 10 mg Tab RxNorm: 117584 2 Tablet(s) PO QD 07/02/2013 013 Inactive warfarin 2 mg tablet RxNorm: 223125 1 1/2 Tablet(s) PO MWF and 2 tablets on Sat and Sun 09/02/2018 09/01/2018 Inactive Ativan 1 mg Tab RxNorm: 419988 1 Tablet(s) PO BID PRN for anxiety 0 04/20/2010 04/19/2010 Inactive warfarin 2 mg Tab RxNorm: 380916 Tablet(s) PO take 2 tablets by mouth Sat-Sat and 1 tablet on Saturday and Saturday06/06/2012 06/05/2012 Inactive Depakote ER 250 mg tablet,extended release RxNorm: 8008638 1 Tab let(s) PO BID 11/27/2017 11/26/2017 Inactive warfarin 1 mg Tab RxNorm: 253251 1 Tablet(s) PO on Saturday and Saturday10/30/2010 [...] Code Result Date S ervice Location PT [id number] PT 24.4 Seconds 07/05/2021 Unknow n PT [id number] INR 2.2 07/05/2021 Unknown PT [id number] PT 25.2 Seconds 04/28/2021 Unknow n PT [id number] INR 2.3 04/28/2021 Unknown THYROID STIMULATING HORMONE 05869 TSH 2.271 uIU/mL 04/28/2021 Unknown COMPREHENSIVE METABOLIC 55815 AST 18 U/L 2020 Unknown COMPREHENSIVE METABOLIC 47284 ALT 9 U/L 2020 Unknown COMPREHENSIVE METABOLIC 05216 BUN 17 mg/dL 2020 Unknown COMPREHENSIVE METABOLIC 54314 ALBUMIN 3.8 g/dL 2020 Unknown COMPREHENSIVE METABOLIC 99218 CHLORIDE 108 mmol/L 04/28 Unknown COMPREHENSIVE METABOLIC 34982 Bili Total 0.7 mg/dL 04/28 Unknown COMPREHENSIVE METABOLIC 59615 ALK PHOS 76 U/L 2020 Unknown COMPREHENSIVE METABOLIC 41947 SODIUM 140 mmol/L 04/28 Unknown COMPREHENSIVE METABOLIC 29154 CREATININE 0.83 mg/dL 04/05 Unknown COMPREHENSIVE METABOLIC 61373 CALCIUM 9.5 mg/dL 2020 Unknown COMPREHENSIVE METABOLIC 14522 POTASSIUM 4.1 mmol/L 04/28 Unknown COMPREHENSIVE METABOLIC 11896 Total Protein 6.9 g/dL Unknown COMPREHENSIVE METABOLIC 26846 Glucose 106 mg/dL 2020 Unknown COMPREHENSIVE METABOLIC 47600 Bicarbonate 26 mmol/L 04/05 Unknown COMPREHENSIVE METABOLIC 72671 AGAP 6 mmol/L 2020 Unknown GFR CALC [id number] GFR Non Afr Amr >60 mL/min 04/28/2021 Un known GFR CALC [id number] GFR Afr Amr >60 mL/min 04/28/2021 Unknow n COMPLETE BLOOD COUNT [id number] WBC 4.6 10e9/L 04/28/20 21 Unknown COMPLETE BLOOD COUNT [id number] RBC 4.39 10e12/L 2020 Unknown COMPLETE BLOOD COUNT [id number] HEMOGLOBIN 14.2 g/dL 04/28/20 21 Unknown COMPLETE BLOOD COUNT [id number] HEMATOCRIT 41.1 % 04/28/20 21 Unknown COMPLETE BLOOD COUNT [id number] MCV 93.6 fL 1 Unknown COMPLETE BLOOD COUNT [id number] MCH 32.3 pg 1 Unknown COMPLETE BLOOD COUNT [id number] MCHC 34.5 g/dL 1 Unknown COMPLETE BLOOD COUNT [id number] PLATELET COUNT 198 10e9/L Unknown COMPLETE BLOOD COUNT [id number] Mean Plt Volume 9.3 fL Unknown COMPLETE BLOOD COUNT 0324703 Neut Auto 54.8 % 1 Unknown COMPLETE BLOOD COUNT [id number] Lymph Auto 33.7 % 04/28/20 21 Unknown COMPLETE BLOOD COUNT [id number] Dupage Auto 9.6 % 1 Unknown COMPLETE BLOOD COUNT [id number] RDW 12.2 % 1 Unknown COMPLETE BLOOD COUNT [id number] Eos Auto 1.7 % 1 Unknown COMPLETE BLOOD COUNT [id number] Baso Auto 0.2 % 1 Unknown COMPLETE BLOOD COUNT [id number] Neutrophil Abs 2.52 10e9/L Unknown COMPLETE BLOOD COUNT [id number] Lymphocyte Abs 1.55 10e9/L Unknown COMPLETE BLOOD COUNT [id number] Monocyte Abs 0.44 10e9/L 04/05 Unknown COMPLETE BLOOD COUNT [id number] Eosinophil Abs 0.08 10e9/L Unknown COMPLETE BLOOD COUNT [id number] RDW-SD 40.9 fL Unknown COMPLETE BLOOD COUNT [id number] Basophil Abs 0.01 10e9/L 04/05 Unknown FREE T4 39011 T4 Free 0.81 ng/dL 04/28/2021 Unknown PT [id number] PT 19.8 Seconds 01/18/2021 Unknow n PT [id number] INR 1.6 01/18/2021 Unknown PT [id number] PT 18.7 Seconds 10/14/2020 Unknow n PT [id number] INR 1.5 10/14/2020 Unknown COMPREHENSIVE METABOLIC 87832 AST 17 U/L 2019 Unknown COMPREHENSIVE METABOLIC 54859 ALT 10 U/L 2019 Unknown COMPREHENSIVE METABOLIC 24333 BUN 19 mg/dL 2019 Unknown COMPREHENSIVE METABOLIC 19011 ALBUMIN 4.1 g/dL 2019 Unknown COMPREHENSIVE METABOLIC 81573 CHLORIDE 103 mmol/L 10/14 Unknown COMPREHENSIVE METABOLIC 80593 Bili Total 0.6 mg/dL 10/14 Unknown COMPREHENSIVE METABOLIC 24793 ALK PHOS 65 U/L 2019 Unknown COMPREHENSIVE METABOLIC 91559 SODIUM 141 mmol/L 10/14 Unknown COMPREHENSIVE METABOLIC 17057 CREATININE 0.77 mg/dL 10/04 Unknown COMPREHENSIVE METABOLIC 86933 CALCIUM 9.2 mg/dL 2019 Unknown COMPREHENSIVE METABOLIC 85803 POTASSIUM 4.2 mmol/L 10/14 Unknown COMPREHENSIVE METABOLIC 01036 Total Protein 6.7 g/dL Unknown COMPREHENSIVE METABOLIC 91549 Glucose 91 mg/dL 2019 Unknown COMPREHENSIVE METABOLIC 51505 Bicarbonate 28 mmol/L 10/04 Unknown COMPREHENSIVE METABOLIC 19572 AGAP 10 mmol/L 2019 Unknown FREE T4 21029 T4 Free 0.81 ng/dL 10/14/2020 Unknown HEMOGLOBIN A1C (GLYCOSYLATED) 4698934 Hgb A1c 58470-9 4.4 % 10/14/2020 Unknown HEMOGLOBIN A1C (GLYCOSYLATED) 7931215 Calc Mean Gluc 80 mg /dL 10/14/2020 Unknown COMPLETE BLOOD COUNT [id number] WBC 5.4 10e9/L 10/14/20 20 Unknown COMPLETE BLOOD COUNT [id number] RBC 4.40 10e12/L 2019 Unknown COMPLETE BLOOD COUNT 7579754 HEMOGLOBIN 14.4 g/dL 10/14/20 20 Unknown COMPLETE BLOOD COUNT [id number] HEMATOCRIT 42.4 % 10/14/20 20 Unknown COMPLETE BLOOD COUNT 7056393 MCV 96.4 fL 0 Unknown COMPLETE BLOOD COUNT [id number] MCH 32.7 pg 0 Unknown COMPLETE BLOOD COUNT 4496906 MCHC 34.0 g/dL 0 Unknown COMPLETE BLOOD COUNT 7387551 PLATELET COUNT 216 10e9/L 09/2020 Unknown COMPLETE BLOOD COUNT 4775735 Mean Plt Volume 9.5 fL 09/2020 Unknown COMPLETE BLOOD COUNT 3375872 Neut Auto 57.6 % 0 Unknown COMPLETE BLOOD COUNT [id number] Lymph Auto 31.5 % 10/14/20 20 Unknown COMPLETE BLOOD COUNT [id number] Dupage Auto 9.0 % 0 Unknown COMPLETE BLOOD COUNT [id number] RDW 12.4 % 0 Unknown COMPLETE BLOOD COUNT 1441056 Eos Auto 1.7 % 0 Unknown COMPLETE BLOOD COUNT 0156138 Baso Auto 0.2 % 0 Unknown COMPLETE BLOOD COUNT [id number] Neutrophil Abs 3.11 10e9/L Unknown COMPLETE BLOOD COUNT [id number] Lymphocyte Abs 1.70 10e9/L Unknown COMPLETE BLOOD COUNT [id number] Monocyte Abs 0.49 10e9/L 10/04 Unknown COMPLETE BLOOD COUNT [id number] Eosinophil Abs 0.09 10e9/L Unknown COMPLETE BLOOD COUNT [id number] RDW-SD 42.4 fL 0 Unknown COMPLETE BLOOD COUNT [id number] Basophil Abs 0.01 10e9/L 10/04 Unknown THYROID STIMULATING HORMONE 86018 TSH 2.071 uIU/mL 10/14/2020 Unknown LIPID GROUP 98984 Cholesterol 217 mg/dL 10/14/2020 Unkno wn LIPID GROUP 72674 Triglyceride 108 mg/dL 10/14/2020 Unkn own LIPID GROUP 10769 HDL CHOLESTEROL 46 mg/dL 10/14/2020 U nknown LIPID GROUP 86181 Chol/HDL Ratio 4.72 ratio 10/14/2020 U nknown LIPID GROUP 49087 NON-HDL Chol 171 mg/dL 10/14/2020 Unkn own LIPID GROUP 84760 LDL Cholesterol 149 mg/dL 10/14/2020 U nknown GFR CALC 2321174 GFR Non Afr Amr >60 mL/min 10/14/2020 Un known GFR CALC 7674123 GFR Afr Amr >60 mL/min 10/14/2020 Unknow n COMPLETE BLOOD COUNT 9070944 WBC 7.6 10e9/L 04/06/20 20 Unknown COMPLETE BLOOD COUNT 7105745 RBC 3.90 10e12/L 2019 Unknown COMPLETE BLOOD COUNT [id number] HEMOGLOBIN 12.0 g/dL 04/06/20 20 Unknown COMPLETE BLOOD COUNT 9711934 HEMATOCRIT 36.9 % 04/06/20 20 Unknown COMPLETE BLOOD COUNT [id number] MCV 94.6 fL 0 Unknown COMPLETE BLOOD COUNT [id number] MCH 30.8 pg 0 Unknown COMPLETE BLOOD COUNT 5131358 MCHC 32.5 g/dL 0 Unknown COMPLETE BLOOD COUNT [id number] PLATELET COUNT 257 10e9/L 01/2020 Unknown COMPLETE BLOOD COUNT [id number] Mean Plt Volume 8.6 fL 01/2020 Unknown COMPLETE BLOOD COUNT 3167073 Neut Auto 68.7 % 0 Unknown COMPLETE BLOOD COUNT 5853679 Lymph Auto 22.0 % 04/06/20 20 Unknown COMPLETE BLOOD COUNT [id number] Dupage Auto 8.3 % 0 Unknown COMPLETE BLOOD COUNT 2601985 RDW 12.7 % 0 Unknown COMPLETE BLOOD COUNT 8884049 Eos Auto 0.7 % 0 Unknown COMPLETE BLOOD COUNT 7924757 Baso Auto 0.3 % 0 Unknown COMPLETE BLOOD COUNT 7938135 Neutrophil Abs 5.22 10e9/L Unknown COMPLETE BLOOD COUNT [id number] Lymphocyte Abs 1.67 10e9/L Unknown COMPLETE BLOOD COUNT [id number] Monocyte Abs 0.63 10e9/L 01/2020 Unknown COMPLETE BLOOD COUNT [id number] Eosinophil Abs 0.05 10e9/L Unknown COMPLETE BLOOD COUNT [id number] RDW-SD 42.6 fL 0 Unknown COMPLETE BLOOD COUNT [id number] Basophil Abs 0.02 10e9/L 01/2020 Unknown PT [id number] PT 19.3 Seconds 04/06/2020 Unknow n PT [id number] INR 1.6 04/06/2020 Unknown COMPREHENSIVE METABOLIC 98072 AST 12 U/L 2019 Unknown COMPREHENSIVE METABOLIC 33804 ALT 7 U/L 2019 Unknown COMPREHENSIVE METABOLIC 52187 BUN 19 mg/dL 2019 Unknown COMPREHENSIVE METABOLIC 79435 ALBUMIN 3.8 g/dL 2019 Unknown COMPREHENSIVE METABOLIC 36527 CHLORIDE 103 mmol/L 04/06 Unknown COMPREHENSIVE METABOLIC 53566 Bili Total 0.4 mg/dL 04/06 Unknown COMPREHENSIVE METABOLIC 96352 ALK PHOS 78 U/L 2019 Unknown COMPREHENSIVE METABOLIC 52448 SODIUM 141 mmol/L 04/06 Unknown COMPREHENSIVE METABOLIC 34745 CREATININE 0.90 mg/dL 01/2020 Unknown COMPREHENSIVE METABOLIC 78264 CALCIUM 9.0 mg/dL 2019 Unknown COMPREHENSIVE METABOLIC 79644 POTASSIUM 3.8 mmol/L 04/06 Unknown COMPREHENSIVE METABOLIC 94086 Total Protein 6.1 g/dL Unknown COMPREHENSIVE METABOLIC 41107 Glucose 125 mg/dL 2019 Unknown COMPREHENSIVE METABOLIC 15108 Bicarbonate 27 mmol/L 01/2020 Unknown COMPREHENSIVE METABOLIC 91669 AGAP 11 mmol/L 2019 Unknown GFR CALC 2312888 GFR Non Afr Amr >60 mL/min 04/06/2020 Un known GFR CALC 2393640 GFR Afr Amr >60 mL/min 04/06/2020 Unknow n PT [id number] PT 25.2 Seconds 09/02/2019 Unknow n PT [id number] INR 2.2 09/02/2019 Unknown PT [id number] PT 26.5 Seconds 04/22/2019 Unknow n PT [id number] INR 2.3 04/22/2019 Unknown FERRITIN 62109 FERRITIN 240.3 ng/mL 04/22/2019 Unknown COMPLETE BLOOD COUNT 0350469 WBC 7.7 10e9/L 04/22/20 19 Unknown COMPLETE BLOOD COUNT [id number] RBC 4.19 10e12/L 2018 Unknown COMPLETE BLOOD COUNT [id number] HEMOGLOBIN 13.5 g/dL 04/22/20 19 Unknown COMPLETE BLOOD COUNT 8694342 HEMATOCRIT 39.6 % 04/22/20 19 Unknown COMPLETE BLOOD COUNT [id number] MCV 94.5 fL 9 Unknown COMPLETE BLOOD COUNT 7013631 MCH 32.2 pg 9 Unknown COMPLETE BLOOD COUNT 8543155 MCHC 34.1 g/dL 9 Unknown COMPLETE BLOOD COUNT 3771603 PLATELET COUNT 235 10e9/L Unknown COMPLETE BLOOD COUNT 7842676 Mean Plt Volume 9.8 fL Unknown COMPLETE BLOOD COUNT 8601958 Neut Auto 68.5 % 9 Unknown COMPLETE BLOOD COUNT 7519703 Lymph Auto 22.4 % 04/22/20 19 Unknown COMPLETE BLOOD COUNT [id number] Dupage Auto 8.3 % 9 Unknown COMPLETE BLOOD COUNT [id number] RDW 12.4 % 9 Unknown COMPLETE BLOOD COUNT [id number] Eos Auto 0.5 % 9 Unknown COMPLETE BLOOD COUNT [id number] Baso Auto 0.3 % 9 Unknown COMPLETE BLOOD COUNT [id number] Neutrophil Abs 5.27 10e9/L Unknown COMPLETE BLOOD COUNT [id number] Lymphocyte Abs 1.72 10e9/L Unknown COMPLETE BLOOD COUNT [id number] Monocyte Abs 0.64 10e9/L 04/04 Unknown COMPLETE BLOOD COUNT [id number] Eosinophil Abs 0.04 10e9/L Unknown COMPLETE BLOOD COUNT [id number] RDW-SD 41.6 fL 9 Unknown COMPLETE BLOOD COUNT [id number] Basophil Abs 0.02 10e9/L 04/04 Unknown IRON 04834 Iron 95 ug/dL 04/22/2019 Unknown GFR CALC [id number] GFR Non Afr Amr >60 mL/min 01/05/2019 Un known GFR CALC [id number] GFR Afr Amr >60 mL/min 01/05/2019 Unknow n COMPREHENSIVE METABOLIC 52149 AST 15 U/L 2018 Unknown COMPREHENSIVE METABOLIC 81055 ALT 11 U/L 2018 Unknown COMPREHENSIVE METABOLIC 14524 BUN 16 mg/dL 2018 Unknown COMPREHENSIVE METABOLIC 66935 ALBUMIN 3.9 g/dL 2018 Unknown COMPREHENSIVE METABOLIC 81143 CHLORIDE 106 mmol/L 01/05 Unknown COMPREHENSIVE METABOLIC 73344 Bili Total 0.7 mg/dL 01/05 Unknown COMPREHENSIVE METABOLIC 34405 ALK PHOS 50 U/L 2018 Unknown COMPREHENSIVE METABOLIC 44097 SODIUM 138 mmol/L 01/05 Unknown COMPREHENSIVE METABOLIC 34411 CREATININE 0.74 mg/dL 02/2019 Unknown COMPREHENSIVE METABOLIC 29127 CALCIUM 9.0 mg/dL 2018 Unknown COMPREHENSIVE METABOLIC 23753 POTASSIUM 4.3 mmol/L 01/05 Unknown COMPREHENSIVE METABOLIC 28295 Total Protein 6.4 g/dL Unknown COMPREHENSIVE METABOLIC 86886 Glucose 114 mg/dL 2018 Unknown COMPREHENSIVE METABOLIC 46953 Bicarbonate 26 mmol/L 02/2019 Unknown COMPREHENSIVE METABOLIC 84650 AGAP 6 mmol/L 2018 Unknown COMPLETE BLOOD COUNT [id number] WBC 5.5 10e9/L 01/06/20 19 Unknown COMPLETE BLOOD COUNT [id number] RBC 4.27 10e12/L 2018 Unknown COMPLETE BLOOD COUNT [id number] HEMOGLOBIN 14.0 g/dL 01/06/20 19 Unknown COMPLETE BLOOD COUNT [id number] HEMATOCRIT 40.6 % 01/06/20 19 Unknown COMPLETE BLOOD COUNT [id number] MCV 95.1 fL 9 Unknown COMPLETE BLOOD COUNT [id number] MCH 32.8 pg 9 Unknown COMPLETE BLOOD COUNT [id number] MCHC 34.5 g/dL 9 Unknown COMPLETE BLOOD COUNT [id number] PLATELET COUNT 211 10e9/L 02/2019 Unknown COMPLETE BLOOD COUNT [id number] Mean Plt Volume 9.8 fL 02/2019 Unknown COMPLETE BLOOD COUNT [id number] Neut Auto 64.7 % 9 Unknown COMPLETE BLOOD COUNT [id number] Lymph Auto 24.3 % 01/06/20 19 Unknown COMPLETE BLOOD COUNT [id number] Dupage Auto 9.7 % 9 Unknown COMPLETE BLOOD COUNT [id number] RDW 12.2 % 9 Unknown COMPLETE BLOOD COUNT [id number] Eos Auto 1.1 % 9 Unknown COMPLETE BLOOD COUNT [id number] Baso Auto 0.2 % 9 Unknown COMPLETE BLOOD COUNT [id number] Neutrophil Abs 3.56 10e9/L Unknown COMPLETE BLOOD COUNT [id number] Lymphocyte Abs 1.34 10e9/L Unknown COMPLETE BLOOD COUNT [id number] Monocyte Abs 0.53 10e9/L 02/2019 Unknown COMPLETE BLOOD COUNT [id number] Eosinophil Abs 0.06 10e9/L Unknown COMPLETE BLOOD COUNT [id number] RDW-SD 41.3 fL 9 Unknown COMPLETE BLOOD COUNT [id number] Basophil Abs 0.01 10e9/L 02/2019 Unknown L[facility] 31580 Cholesterol 145 mg/dL 01/05/2019 Unkno wn LIPID GROUP 32413 Triglyceride 153 mg/dL 01/05/2019 Unkn own LIP[facility] GROUP 93185 HDL CHOLESTEROL 39 mg/dL 01/05/2019 U nknown L[facility] GROUP 97370 Chol/HDL Ratio 3.72 ratio 01/05/2019 U nknown [facility] 62582 NON-HDL Chol 106 mg/dL 01/05/2019 Unkn own [facility] 55427 LDL Cholesterol 75 mg/dL 01/05/2019 U nknown PT [id number] PT 30.5 Seconds 12/15/2018 Unknow n PT [id number] INR 2.9 12/15/2018 Unknown PT [id number] PT 17.2 Seconds 09/08/2018 Unknow n PT [id number] INR 1.4 09/08/2018 Unknown L[facility] GROUP 48699 Cholesterol 190 mg/dL 07/08/2018 Unkno wn L[facility] 43911 Triglyceride 402 mg/dL 07/08/2018 Unkn own [facility] GROUP 81334 HDL CHOLESTEROL 36 mg/dL 07/08/2018 U nknown [facility] 70963 Chol/HDL Ratio 5.28 ratio 07/08/2018 U nknown [facility] 26525 NON-HDL Chol 154 mg/dL 07/08/2018 Unkn own [facility] 50106 LDL Cholesterol N/A Trig >400 018 Unknown GFR CALC [id number] GFR Non Afr Amr >60 mL/min 07/08/2018 Un known GFR CALC [id number] GFR Afr Amr >60 mL/min 07/08/2018 Unknow n COMPLETE BLOOD COUNT [id number] WBC 5.0 10e9/L 07/08/20 18 Unknown COMPLETE BLOOD COUNT [id number] RBC 4.08 10e12/L 2017 Unknown COMPLETE BLOOD COUNT [id number] HEMOGLOBIN 13.3 g/dL 07/08/20 18 Unknown COMPLETE BLOOD COUNT [id number] HEMATOCRIT 38.6 % 07/08/20 18 Unknown COMPLETE BLOOD COUNT [id number] MCV 94.6 fL 8 Unknown COMPLETE BLOOD COUNT [id number] MCH 32.6 pg 8 Unknown COMPLETE BLOOD COUNT [id number] MCHC 34.5 g/dL 8 Unknown COMPLETE BLOOD COUNT [id number] PLATELET COUNT 205 10e9/L 02/2018 Unknown COMPLETE BLOOD COUNT [id number] Mean Plt Volume 9.8 fL 02/2018 Unknown COMPLETE BLOOD COUNT 9101276 Neut Auto 52.8 % 8 Unknown COMPLETE BLOOD COUNT [id number] Lymph Auto 33.2 % 07/08/20 18 Unknown COMPLETE BLOOD COUNT 4777168 Dupage Auto 11.6 % 8 Unknown COMPLETE BLOOD COUNT 7177126 RDW 12.5 % 8 Unknown COMPLETE BLOOD COUNT 5098580 Eos Auto 2.0 % 8 Unknown COMPLETE BLOOD COUNT 7166261 Baso Auto 0.4 % 8 Unknown COMPLETE BLOOD COUNT [id number] Neutrophil Abs 2.64 10e9/L Unknown COMPLETE BLOOD COUNT [id number] Lymphocyte Abs 1.66 10e9/L Unknown COMPLETE BLOOD COUNT [id number] Monocyte Abs 0.58 10e9/L 02/2018 Unknown COMPLETE BLOOD COUNT [id number] Eosinophil Abs 0.10 10e9/L Unknown COMPLETE BLOOD COUNT [id number] RDW-SD 41.8 fL 8 Unknown COMPLETE BLOOD COUNT [id number] Basophil Abs 0.02 10e9/L 02/2018 Unknown PT [id number] PT 32.9 Seconds 07/08/2018 Unknow n PT [id number] INR 3.2 07/08/2018 Unknown PT [id number] PT TNP:Duplicate Order 8 Unknown PT [id number] INR TNP:Duplicate Order 8 Unknown COMPREHENSIVE METABOLIC 35301 AST TNP:Duplicate Or grace 07/08/2018 Unknown COMPREHENSIVE METABOLIC 99982 ALT TNP:Duplicate Or grace 07/08/2018 Unknown COMPREHENSIVE METABOLIC 71276 BUN TNP:Duplicate Or grace 07/08/2018 Unknown COMPREHENSIVE METABOLIC 55944 ALBUMIN TNP:Duplicate Or grace 07/08/2018 Unknown COMPREHENSIVE METABOLIC 44409 CHLORIDE TNP:Duplicate Or grace 07/08/2018 Unknown COMPREHENSIVE METABOLIC 23035 Bili Total TNP:Duplicate O rder 07/08/2018 Unknown COMPREHENSIVE METABOLIC 62243 ALK PHOS TNP:Duplicate Or grace 07/08/2018 Unknown COMPREHENSIVE METABOLIC 94058 SODIUM TNP:Duplicate Or grace 07/08/2018 Unknown COMPREHENSIVE METABOLIC 39134 CREATININE TNP:Duplicate O rder 07/08/2018 Unknown COMPREHENSIVE METABOLIC 31142 CALCIUM TNP:Duplicate Or grace 07/08/2018 Unknown COMPREHENSIVE METABOLIC 66281 POTASSIUM TNP:Duplicate Or grace 07/08/2018 Unknown COMPREHENSIVE METABOLIC 32075 Total Protein TNP:Duplicat e Order 07/08/2018 Unknown COMPREHENSIVE METABOLIC 11324 Glucose TNP:Duplicate Or grace 07/08/2018 Unknown COMPREHENSIVE METABOLIC 74985 Bicarbonate TNP:Duplicate Order 07/08/2018 Unknown COMPREHENSIVE METABOLIC 67283 AGAP TNP:Duplicate Or grace 07/08/2018 Unknown COMPREHENSIVE METABOLIC 99661 AST 17 U/L 2017 Unknown COMPREHENSIVE METABOLIC 38059 ALT 12 U/L 2017 Unknown COMPREHENSIVE METABOLIC 92944 BUN 20 mg/dL 2017 Unknown COMPREHENSIVE METABOLIC 69525 ALBUMIN 4.0 g/dL 2017 Unknown COMPREHENSIVE METABOLIC 37610 CHLORIDE 107 mmol/L 07/08 Unknown COMPREHENSIVE METABOLIC 50240 Bili Total 0.3 mg/dL 07/08 Unknown COMPREHENSIVE METABOLIC 04614 ALK PHOS 58 U/L 2017 Unknown COMPREHENSIVE METABOLIC 48013 SODIUM 139 mmol/L 07/08 Unknown COMPREHENSIVE METABOLIC 61309 CREATININE 0.72 mg/dL 02/2018 Unknown COMPREHENSIVE METABOLIC 86618 CALCIUM 7.8 mg/dL 2017 Unknown COMPREHENSIVE METABOLIC 08373 POTASSIUM 4.1 mmol/L 07/08 Unknown COMPREHENSIVE METABOLIC 14179 Total Protein 6.2 g/dL Unknown COMPREHENSIVE METABOLIC 09361 Glucose 107 mg/dL 2017 Unknown COMPREHENSIVE METABOLIC 13677 Bicarbonate 22 mmol/L 02/2018 Unknown COMPREHENSIVE METABOLIC 99532 AGAP 10 mmol/L 2017 Unknown GFR CALC 8299745 GFR Non Afr Amr >60 mL/min 11/28/2017 Un known GFR CALC 1776852 GFR Afr Amr >60 mL/min 11/28/2017 Unknow n THYROID STIMULATING HORMONE 58672 TSH 4.029 uIU/mL 11/28/2017 Unknown LIP[facility] GROUP 22347 Cholesterol 181 mg/dL 11/28/2017 Unkno wn LIPID GROUP 54398 Triglyceride 193 mg/dL 11/28/2017 Unkn own LIPID GROUP 06701 HDL CHOLESTEROL 36 11/28/2017 U nknown LIPID GROUP 86208 Chol/HDL Ratio 5.03 ratio 11/28/2017 U nknown LIPID GROUP 07807 NON-HDL Chol 145 mg/dL 11/28/2017 Unkn own LIP[facility] GROUP 69384 LDL Cholesterol 106 mg/dL 11/28/2017 U nknown PT 0265240 PT 22.2 Seconds 11/28/2017 Unknow n PT 7427764 INR 2.0 11/28/2017 Unknown COMPREHENSIVE METABOLIC 82049 AST 19 U/L 2017 Unknown COMPREHENSIVE METABOLIC 93851 ALT 16 U/L 2017 Unknown COMPREHENSIVE METABOLIC 45786 BUN 22 mg/dL 2017 Unknown COMPREHENSIVE METABOLIC 25304 ALBUMIN 4.1 g/dL 2017 Unknown COMPREHENSIVE METABOLIC 97116 CHLORIDE 108 mmol/L 11/28 Unknown COMPREHENSIVE METABOLIC 97806 Bili Total 0.5 mg/dL 11/28 Unknown COMPREHENSIVE METABOLIC 04647 ALK PHOS 53 U/L 2017 Unknown COMPREHENSIVE METABOLIC 94640 SODIUM 141 mmol/L 11/28 Unknown COMPREHENSIVE METABOLIC 13782 CREATININE 0.83 mg/dL 11/05 Unknown COMPREHENSIVE METABOLIC 25183 CALCIUM 9.1 mg/dL 2017 Unknown COMPREHENSIVE METABOLIC 03683 POTASSIUM 4.6 mmol/L 11/28 Unknown COMPREHENSIVE METABOLIC 07754 Total Protein 6.5 g/dL Unknown COMPREHENSIVE METABOLIC 57827 Glucose 106 mg/dL 2017 Unknown COMPREHENSIVE METABOLIC 10470 Bicarbonate 26 mmol/L 11/05 Unknown COMPREHENSIVE METABOLIC 49162 AGAP 7 mmol/L 2017 Unknown COMPLETE BLOOD COUNT 2004154 WBC 5.1 10e9/L 11/28/19 18 Unknown COMPLETE BLOOD COUNT [id number] RBC 4.22 10e12/L 2017 Unknown COMPLETE BLOOD COUNT 9479005 HEMOGLOBIN 13.5 g/dL 11/28/19 18 Unknown COMPLETE BLOOD COUNT 2244627 HEMATOCRIT 39.1 % 11/28/19 18 Unknown COMPLETE BLOOD COUNT [id number] MCV 92.7 fL 8 Unknown COMPLETE BLOOD COUNT 5573756 MCH 32.0 pg 8 Unknown COMPLETE BLOOD COUNT 3637131 MCHC 34.5 g/dL 8 Unknown COMPLETE BLOOD COUNT 9537690 PLATELET COUNT 226 10e9/L Unknown COMPLETE BLOOD COUNT 5906925 Mean Plt Volume 9.6 fL Unknown COMPLETE BLOOD COUNT 4867411 Neut Auto 49.5 % 8 Unknown COMPLETE BLOOD COUNT 1990178 Lymph Auto 35.3 % 11/28/19 18 Unknown COMPLETE BLOOD COUNT 0672688 Dupage Auto 12.4 % 8 Unknown COMPLETE BLOOD COUNT 1614306 RDW 12.4 % 8 Unknown COMPLETE BLOOD COUNT 7169707 Eos Auto 2.2 % 8 Unknown COMPLETE BLOOD COUNT 2019217 Baso Auto 0.6 % 8 Unknown COMPLETE BLOOD COUNT 8643844 Neutrophil Abs 2.52 10e9/L Unknown COMPLETE BLOOD COUNT 2475452 Lymphocyte Abs 1.80 10e9/L Unknown COMPLETE BLOOD COUNT 7397293 Monocyte Abs 0.63 10e9/L 11/05 Unknown COMPLETE BLOOD COUNT 9283047 Eosinophil Abs 0.11 10e9/L Unknown COMPLETE BLOOD COUNT [id number] RDW-SD 41.2 fL 8 Unknown COMPLETE BLOOD COUNT [id number] Basophil Abs 0.03 10e9/L 11/05 Unknown Procedures Procedure Codes Date FLU VACC PRSV FREE INC ANTIG 65 AND OLDER CPT-4: 85271 08/18/2021 FLU VACC PRSV FREE INC ANTIG 65 AND OLDER CPT-4: 33642 08/18/2021 ADMIN INFLUENZA VIRUS VAC CPT-4: G0008 08/18/2021 ROUTINE VENIPUNCTURE CPT-4: 02566 07/05/2021 PROTHROMBIN TIME CPT-4: 44439 07/05/2021 PPPS, subseq visit CPT-4: G0439 10/12/2020 ROUTINE VENIPUNCTURE CPT-4: 45693 04/06/2020 COMPREHEN METABOLIC PANEL CPT-4: 10692 04/06/2020 COMPLETE CBC W/AUTO DIFF WBC CPT-4: 28562 04/06/2020 PROTHROMBIN TIME CPT-4: 80548 04/06/2020 PPPS, subseq visit CPT-4: G0439 09/02/2019 ROUTINE VENIPUNCTURE CPT-4: 89318 09/02/2019 PROTHROMBIN TIME CPT-4: 62981 09/02/2019 FLU VACC PRSV FREE INC ANTIG 65 AND OLDER CPT-4: 63789 08/20/2018 PNEUMOCOCCAL VACC 23 BRIDGET IM CPT-4: 31991 08/20/2018 ADMIN INFLUENZA VIRUS VAC CPT-4: G0008 08/20/2018 ADMIN PNEUMOCOCCAL VACCINE CPT-4: G0009 08/20/2018 PPPS, subseq visit CPT-4: G0439 11/27/2017 FLU VACC PRSV FREE INC ANTIG 65 AND OLDER CPT-4: 39404 08/14/2017 PNEUMOCOCCAL VACC 13 BRIDGET IM CPT-4: 45565 08/14/2017 ADMIN INFLUENZA VIRUS VAC CPT-4: G0008 08/14/2017 ADMIN PNEUMOCOCCAL VACCINE CPT-4: G0009 08/14/2017 FLU VACC PRSV FREE INC ANTIG 65 AND OLDER CPT-4: 77760 10/03/2016 ADMIN INFLUENZA VIRUS VAC CPT-4: G0008 10/03/2016 PPPS, subseq visit CPT-4: G0439 10/10/2015 FLUZONE, 5ML (Medicare) CPT-4: Q2038 09/01/2014 ADMIN INFLUENZA VIRUS VAC CPT-4: G0008 09/01/2014 Vital Signs Date Vital 07/05/2021 Blood Pressure 1: 122/80 Code: 8480-6 Heart Rate 1: 92 bpm Respiratory Rate: 20 bpm SpO2: 96% Temperature: 36.8 (C) / 98.2 (F) We ight: 207 lbs Code: 16323-0 04/26/2021 Blood Pressure 1: 126/82 Code: 8480-6 Heart Rate 1: 104 bpm Respiratory Rate: 20 bpm SpO2: 96% Temperature: 36.7 (C) / 98.1 (F) We ight: 212 lbs Code: 41586-0 10/12/2020 Blood Pressure 1: 104/68 Code: 8480-6 BMI: 31.6 Code: 23375-6 Heart Rate 1: 96 bpm Height: 5'7" Code: 8302-2 Respiratory Rate: 20 bpm SpO2: 95% Temperature: 36.9 (C) / 98.5 (F) Weight: 202 lbs Code: 99953-6 07/13/2020 Blood Pressure 1: 128/72 Code: 8480-6 Heart Rate 1: 76 bpm Respiratory Rate: 18 bpm SpO2: 97% Temperature: 36.3 (C) / 97.3 (F) We ight: 190 lbs Code: 45357-8 04/06/2020 Blood Pressure 1: 106/68 Code: 8480-6 BMI: 29.1 Code: 63220-4 Heart Rate 1: 96 bpm Height: 5'7" Code: 8302-2 Respiratory Rate: 20 bpm SpO2: 96% Temperature: 36.8 (C) / 98.2 (F) Weight: 186 lbs Code: 58759-8 09/02/2019 Blood Pressure 1: 94/50 Code: 8480-6 BMI: 29.8 C ode: 21648-9 Heart Rate 1: 68 bpm Height: 5'7" Code: 8302-2 Respiratory Rate: 20 bpm SpO2: 96% Temperature: 36.6 (C) / 97.9 (F) Weight: 190 lbs Code: 91298-7 07/01/2019 Blood Pressure 1: 112/60 Code: 8480-6 Heart Rate 1: 88 bpm Respiratory Rate: 20 bpm SpO2: 94% Temperature: 36.8 (C) / 98.2 (F) We ight: 201 lbs Code: 41546-6 05/27/2019 Blood Pressure 1: 104/50 Code: 8480-6 Heart Rate 1: 62 bpm SpO2: 95% Temperature: 36.3 (C) / 97.4 (F) Weight: 204 lbs Code: 66020-4 04/22/2019 Blood Pressure 1: 112/72 Code: 8480-6 Heart Rate 1: 64 bpm Respiratory Rate: 20 bpm SpO2: 95% Temperature: 36.8 (C) / 98.2 (F) We ight: 207 lbs Code: 91910-0 02/09/2019 Blood Pressure 1: 104/60 Code: 8480-6 Heart Rate 1: 72 bpm Respiratory Rate: 20 bpm SpO2: 95% Temperature: 37.1 (C) / 98.8 (F) We ight: 216 lbs Code: 38713-5 01/07/2019 Blood Pressure 1: 122/74 Code: 8480-6 Heart Rate 1: 96 bpm Respiratory Rate: 20 bpm SpO2: 96% Temperature: 36.7 (C) / 98.1 (F) We ight: 219 lbs Code: 69713-4 07/09/2018 Blood Pressure 1: 118/65 Code: 8480-6 Heart Rate 1: 62 bpm SpO2: 94% Temperature: 36.2 (C) / 97.1 (F) Weight: 237 lbs Code: 17957-5 11/27/2017 Blood Pressure 1: 124/70 Code: 8480-6 BMI: 35.2 Code: 91432-6 Heart Rate 1: 64 bpm Height: 5'8" Code: 8302-2 Respiratory Rate: 20 bpm SpO2: 94% Temperature: 36.9 (C) / 98.5 (F) Weight: 235 lbs Code: 14442-4 10/10/2015 Blood Pressure 1: 126/78 Code: 8480-6 BMI: 36.0 Code: 37768-4 Heart Rate 1: 72 bpm Height: 5'8" Code: 8302-2 Respiratory Rate: 20 bpm Temperatu re: 36.9 (C) / 98.4 (F) Weight: 240 lbs Code: 03041-9 09/01/2014 Blood Pressure 1: 114/70 Code: 8480-6 BMI: 35.4 Code: 82476-9 Heart Rate 1: 76 bpm Height: 5'8" Code: 8302-2 Respiratory Rate: 20 bpm Temperatu re: 36.7 (C) / 98.1 (F) Weight: 236 lbs Code: 34388-5 07/02/2013 Blood Pressure 1: 124/90 Code: 8480-6 BMI: 33.7 Code: 18296-4 Heart Rate 1: 76 bpm Height: 5'8" Code: 8302-2 Respiratory Rate: 20 bpm Temperatu re: 36.6 (C) / 97.8 (F) Weight: 225 lbs Code: 52459-5 06/25/2012 Blood Pressure 1: 144/100 Code: 8480-6 BMI: 34.5 Code: 17460-3 Heart Rate 1: 76 bpm Height: 5'8" Code: 8302-2 Respiratory Rate: 20 bpm Temperatu re: 36.6 (C) / 97.9 (F) Weight: 230 lbs Code: 84018-4 05/15/2012 Blood Pressure 1: 112/70 Code: 8480-6 BMI: 34.6 Code: 28361-1 Heart Rate 1: 76 bpm Height: 5'8" Code: 8302-2 Respiratory Rate: 20 bpm Temperatu re: 37.0 (C) / 98.6 (F) Weight: 231 lbs Code: 12001-5 12/06/2011 Blood Pressure 1: 142/90 Code: 8480-6 BMI: 35.4 Code: 44709-6 Heart Rate 1: 72 bpm Height: 5'8" Code: 8302-2 Respiratory Rate: 20 bpm Temperatu re: 36.9 (C) / 98.4 (F) Weight: 236 lbs Code: 91768-0 10/30/2010 Blood Pressure 1: 114/78 Code: 8480-6 Heart Rate 1: 76 bpm Temperature: 36.3 (C) / 97.4 (F) Weight: 228 lbs Code: 01540-8 Functional Status No Functional Status data Reason [...] ativan; Encounters Encounter Performer Location Codes Date ([id number]) NURSE/OUTPATIENT VISIT EST Diagnosis: FLU VACCINE[ICD10: Z23] Arlyn MOSQUERA DO [facility] CPT-4: 07742 08/18/2021 ([id number]) OFFICE/OUTPATIENT VISIT EST Diagnosis: Parkinson disease[ICD10: G20] 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[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: Z79.01] Arlyn LOPEZ DO [facility] CPT-4: 52436 07/05/2021 ([id number]) OFFICE/OUTPATIENT VISIT EST Diagnosis: Parkinson disease[ICD10: G20] Diagnosis: Dementia[ICD10: F03.90] Arlyn MOSQUERA DO [facility] CPT-4: 78080 04/26/2021 ([id number]) OFFICE/OUTPATIENT VISIT EST Diagnosis: 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] Diagnosis: 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: G30.9] Arlyn OLPEZ DO [facility] CPT-4: 62259 07/13/2020 ([id number]) OFFICE/OUTPATIENT VISIT EST Diagnosis: Alzheimer's disease, unspecified[ICD10: G30.9] Arlyn LOPEZ DO [facility] CPT-4: 99350 04/06/2020 ([id number]) OFFICE/OUTPATIENT VISIT EST Diagnosis: Alzheimer's disease with late onset[ICD10: G30.1] Diagnosis: Generalized anxiety disorder[ICD10: F41.1] Diagnosis: Unspecified dementia with behavioral disturbance[ICD10: F03.91] Arlyn LOPEZ DO [facility] CPT-4: 23409 07/01/2019 ([id number]) OFFICE/OUTPATIENT VISIT EST Diagnosis: Alzheimer's disease with late onset[ICD10: G30.1] Diagnosis: Abnormal weight loss[ICD10: R63.4] Diagnosis: Essential (primary) hypertension[ICD10: I10] Diagnosis: Melena[ICD10: K92.1] Diagnosis: Unspecified dementia with behavioral disturbance[ICD10: F03.91] Diagnosis: Spontaneous ecchymoses[ICD10: R23.3] Arlyn Orenddemetri LOPEZ [facility] CPT-4: 22691 05/27/2019 ([id number]) OFFICE/OUTPATIENT VISIT EST Diagnosis: 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] Diagnosis: Alzheimer's disease with late onset[ICD10: G30.1] Diagnosis: Melena[ICD10: K92.1] Diagnosis: Abnormal weight loss[ICD10: R63.4] Arlyn Lopez INDIRA LOPEZ [facility] CPT-4: 83519 04/22/2019 ([id number]) OFFICE/OUTPATIENT VISIT EST Diagnosis: 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] Diagnosis: Slow transit constipation[ICD10: K59.01] Diagnosis: Unspecified dementia with behavioral disturbance[ICD10: F03.91] Arlyn LOPEZ [facility] CPT-4: 40079 02/09/2019 ([id number]) OFFICE/OUTPATIENT VISIT EST Diagnosis: Alzheimer's disease with late onset[ICD10: G30.1] Diagnosis: 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] Diagnosis: Nocturia[ICD10: R35.1] Diagnosis: Constipation, unspecified[ICD10: K59.00] Arlyn Corraljerrydemetri FERMINARLYN RmDiane JULIO [facility] CPT-4: 63647 01/07/2019 ([id number]) NURSE/OUTPATIENT VISIT EST Diagnosis: FLU VACCINE[ICD10: Z23] Diagnosis: PNEUMOCOCCAL VACCINE[ICD10: Z23] Arlyn Corraljerrydemetri FERMINARLYN RmDiane [facility] CPT-4: 41164 08/20/2018 ([id number]) OFFICE/OUTPATIENT VISIT EST Diagnosis: Mixed hyperlipidemia[ICD10: E78.2] Diagnosis: Essential (primary) hypertension[ICD10: I10] Diagnosis: Alzheimer's disease, unspecified[ICD10: G30.9] Arlyn Ellisjerrydemetri FERMINARLYN RmDiane [facility] CPT-4: 62457 07/09/2018 ([id number]) OFFICE/OUTPATIENT VISIT EST Diagnosis: PNEUMOCOCCAL VACCINE[ICD10: Z23] Diagnosis: FLU VACCINE[ICD10: Z23] Arlyn Ellisnoemi CRAMERARLNY RmDiane BRAYDON [facility] CPT-4: 65873 08/14/2017 ([id number]) OFFICE/OUTPATIENT VISIT EST Diagnosis: FLU VACCINE[ICD10: Z23] Arlyn BRYSON ER [facility] CPT-4: 75871 10/03/2016 ([id number]) OFFICE/OUTPATIENT VISIT EST Diagnosis: HYPERTENSION[ICD9: 401.9] Diagnosis: HYPERLIPIDEMIA NEC/NOS[ICD9: 272.4] Diagnosis: MEMORY LOSS[ICD9: 780.93] Diagnosis: - I - ANXIETY STATE NOS[ICD9: 300.00] Diagnosis: FLU VACCINE[ICD10: Z23] Arlyn BRYSON ER [facility] CPT-4: 72819 09/01/2014 OFFICE/OUTPATIENT VISIT EST Diagnosis: HYPERTENSION[ICD9: 401.9] Diagnosis: CAD[ICD9: 414.00] Diagnosis: HYPERLIPIDEMIA NEC/NOS[ICD9: 272.4] Diagnosis: MEMORY LOSS[ICD9: 780.93] Diagnosis: ANXIETY STATE NOS[ICD9: 300.00] Diagnosis: Testicular pain[ICD9: 608.9] Arlyn LOPEZ [facility] CPT-4: 67023 07/02/2013 ([id number]) OFFICE/OUTPATIENT VISIT EST Diagnosis: MEMORY LOSS[ICD9: 780.93] Arlyn CORRAL NDER [facility] CPT-4: 18493 06/25/2012 ([id number]) OFFICE/OUTPATIENT VISIT EST Diagnosis: HYPERLIPIDEMIA NEC/NOS[ICD9: 272.4] Diagnosis: HYPERTENSION[ICD9: 401.9] Diagnosis: CAD[ICD9: 414.00] Diagnosis: MEMORY LOSS[ICD9: 780.93] Arlyn CORRAL NDER [facility] CPT-4: 20815 05/15/2012 PER PM REEVAL EST PAT 65+ YR Diagnosis: ROUTINE MEDICAL EXAM[ICD9: V70.0] Diagnosis: HYPERLIPIDEMIA NEC/NOS[ICD9: 272.4] Diagnosis: HYPERTENSION[ICD9: 401.9] Diagnosis: CAD[ICD9: 414.00] Diagnosis: Seborrheic dermatitis[ICD9: 690.10] Arlyn Corraljerrydemetri CRAMERHAWAViviane [place] Krish CORRALNDDEMETRI [facility] CPT-4: 16566 12/06/2011 ([id number]) OFFICE/OUTPATIENT VISIT, EST Arlyn LOPEZ DO [facility] CPT-4: 90042 10/30/2010 Plan of Care Planned Activity Notes Codes Status Date Appointment: Arlyn Lopez WPtel: [address] [place] [address] [place] Immunizations 08/18/2021 Visit Diagnosis Plan: Parkinson disease Discussion: In crease sinemet 25/100mg 2po BID Call in 1month ICD-9 : 332.0 ICD-10 : G20 07/05/2021 Visit Diagnosis Plan: long-term (current) use of antic oagulants Discussion: PT/INR drawn ICD-9 : V58.61 ICD-10 : Z79.01 07/05/2021 Appointment: Arlyn Lopez WPtel: [address] [place] [address] [place] FOLLOW UP 07/05/2021 Visit Diagnosis Plan: Parkinson disease Discussion: Tr ial of sinemet 25/100mg po BID Fwup 2mos ICD-9 : 332.0 ICD-10 : G20 04/26/2021 Appointment: Arlyn Lopez WPtel: [address] [place] [address] [place] FOLLOW UP 04/26/2021 Appointment: Arlyn Lopez WPtel: [address] [place] [address] [place] CANCELED 01/11/2021 Visit Diagnosis Plan: Encounter for [facility] adult medical examination without abnormal [...] ICD-10 : G30.1 10/12/2020 Visit Diagnosis Plan: long-term (current) use of antic oagulants Discussion: Update PT/INR ICD-9 : V58.61 ICD-10 : Z79.01 10/12/2020 Appointment: Arlyn Lopez WPtel: [address] [place], [place] [phone] [place] Annual Well Visit 10/12/2020 Visit Diagnosis [...] : F02.81 07/13/2020 Appointment: Arlyn Lopez WPtel: [address] [place], [place] [phone] [place] FOLLOW UP 07/13/2020 Care Plan: PT Pending 06/27/2020 Visit Diagnosis Plan: Alzheimer's disease, unspecified Discussion: Worsening has started OTC supplements Inquiring about meals on wheels Follow Up: 3 months ICD-9 : 331.0 ICD-10 : G30.9 04/06/2020 Appointment: Arlyn Lopez WPtel: [address] [place], [place] [phone] [place] FOLLOW UP 04/06/2020 Care Plan: Referral Order SNOMED-CT : [id number] [phone] Pending 04/06/2020 Appointment: Arlyn Lopez WPtel: [address] [place], [place] [phone] [place] RESCHEDULED 02/24/2020 Care Plan: COMPREH[place] : 01900-6 Pending 12/14/2019 Care Plan: LIPID PANEL LOINC : 16933-1 Pending 12/14/2019 Care Plan: PT Pending 12/14/2019 [...] ICD-10 : Z51.81 09/02/2019 Appointment: Arlyn Lopeztel: [address] [place] [address] originally 2 mo follow up Annual Well Visit 08/06 Visit Diagnosis Plan: Generalized anxiety disorder Dis cussion: Depakote already helping Follow Up: 2 months ICD-9 : 300.00 ICD-10 : F41.1 07/01/2019 Appointment: Arlyn Lopeztel: [address] [place] [address] FOLLOW UP 07/01/2019 Visit Diagnosis Plan: Spontaneous [...] : K92.1 05/27/2019 Appointment: Arlyn Lopez WPtel: [address] [place], [place] [phone] [place] FOLLOW UP 05/27/2019 Visit Diagnosis Plan: [...] : F51.04 04/22/2019 Appointment: Arlyn Lopez WPtel: [address] [place], [place] [phone] [place] FOLLOW UP 04/22/2019 Visit Diagnosis Plan: [...] : K59.01 02/09/2019 Appointment: Arlyn Lopez WPtel: [address] [place], [place] [phone] [place] FOLLOW UP 02/09/2019 Patient Education: escitalopram oxalate- [employer] [id number] Completed 02/09/2019 Patient Education: doxepin- [employer] [id number] Completed 02/09/2019 Visit Diagnosis Plan: Nocturia Discussion: [...] : F51.04 01/07/2019 Appointment: Arlyn Lopez WPtel: [address] [place], [place] [id number] FOLLOW UP 01/07/2019 Patient Education: tamsulosin- [employer] [id number] Completed 01/07/2019 Patient Education: doxepin- [employer] [id number] Completed 01/07/2019 Care Plan: COMPREH[place]AB[place] : 27036-5 Pending 12/17/2018 Care Plan: CBC Pending 12/17/2018 Care Plan: LIPID PANEL LOINC : 11280-3 Pending 12/17/2018 Appointment: Arlyn Lopez WPtel: [address] [place] [address] [place] INJECTION 08/20/2018 Patient Education: Patient Medication [...] : I10 07/09/2018 Appointment: Arlyn Lopez WPtel: [address] [place], [place] [address] FOLLOW UP 07/09/2018 Patient Education: Patient Medication Summary Completed 07/09/2018 Visit Diagnosis Plan: Generalized anxiety disorder Dis cussion: Add lexapro 10mg q HS ICD-9 : 300.00 ICD-10 : F41.1 11/27/2017 Visit Diagnosis Plan: Alzheimer's disease, unspecified Discussion: Change Namenda XR to Namenda 10mg po BI Follow Up: 3 months ICD-9 : 331.0 ICD-10 : G30.9 11/27/2017 Visit Diagnosis Plan: Encounter for gene ral adult medical examination without abnormal findings Discussion: Update fasting lab ICD-9 : V70.0 ICD-10 : Z00.00 11/27/2017 Appointment: Arlyn Lopez WPtel: [address] [place], [place] [phone] Annual Well Visit 11/27/2017 Patient Education: Patient Medication Summary Completed 11/27/2017 Patient Education: Patient Medication Summary Completed 11/14/2017 Care Plan: CBC Pending 11/14/2017 Care Plan: PT Pending 11/14/2017 Care Plan: COMPREH[place]AB[place]IC [place] : 86637-6 Pending 11/14/2017 Care Plan: LIPID PANEL LOINC : 87606-5 Pending 11/14/2017 Care Plan: ASSAY THYROID STIM HORMONE Pen ding 11/14/2017 Appointment: Arlyn Lopez WPtel: [address] [place], [place] [id number] [place] INJECTION 08/14/2017 Patient Education: Patient Medication Summary Completed 08/14/2017 Appointment: Arlyn Lopez WPtel: [address] [place], [place] [phone] [place] INJECTION 10/03/2016 Patient Education: Patient Medication Summary Completed 10/03/2016 Patient Education: Patient Medication Summary Completed 01/02/2016 Care Plan: CBC Ordered 01/02/2016 Visit Plan: Check fasting lab with next PT/INR Continue current meds Discussed trial of PPI but states gaviscon works if will take so will just try it 10/10/2015 Appointment: Arlyn Lopez WPtel: [address] [place], [place] [phone] 10/07/15 appt confirmed cn Annual Well Visit 05/2015 Patient Education: Patient Medication Summary Completed 10/10/2015 Appointment: Arlyn Lopez WPtel: [address] [place], [place] [phone] 08/31 no answer cell # 08/31 vm 2nd # FOLLOW UP 09/01/2014 Patient Education: Patient Medication Summary Completed 09/01/2014 Patient Education: Patient Medication Summary Completed 08/23/2014 Visit Plan: Lab discussed Check testicul ar US Change namenda to Namenda XR 23mg QD Check PSA 07/02/2013 Appointment: Arlyn Lopez WPtel: [address] [place] [address] ACUTE ILLNESS 07/02/2013 Patient Education: Patient Medication Summary Completed 07/02/2013 Visit Plan: Continue namenda 10mg po BID Discussed aricept 06/25/2012 Appointment: Arlyn Lopez WPtel: [address] [place] [address] confirmed w ACUTE ILLNESS 06/25/2012 Patient Education: Patient Medication Summary Completed 06/25/2012 Appointment: Arlyn Lopez WPtel: [address] [place] [address] FOLLOW UP 05/15/2012 Patient Education: Patient Medication Summary Completed 05/15/2012 Visit Plan: Continue current meds Lab di scussed Long discussion about meds, diet, exercise and weight loss for decreasing TG and elevating HDL Add Nystatin/TAC cream to use prn 12/06/2011 Appointment: Arlyn Lopez WPtel: [address] [place] [address] CHECK UP 12/06/2011 Patient Education: Patient Medication Summary Completed 12/06/2011 Visit Plan: Check fasting lab--CMP, lipi ds, PSA, PT/INR Loan deferment paperwork filled out 10/30/2010 Appointment: Arlyn Lopez WPtel: [address] [place] [address] ESTABLISHED PATIENT 10/30/2010 Patient Education: Patient Medication Summary Completed 10/30/2010 Referral: Angeline Arellano WPtel: [address] [place] [address] Referral Appointment Requested Instructions Comment . Check [...]
--- OUTSIDE RECORDS SUMMARY | 2021-10-12 10:17 | XMS REPORT | CCD ---
Author Author Ronnie Lopez D.O. Organization [facility] Address [address] [place] [address] Phone Care Team Providers Care Tooth Cutter Name Role Phone Roxie Lopez D.O., PP Unavailable CCM Unavailable Summary Purpose Interface Exchange Insurance Providers Payer name Policy type / Coverage type Covered democrat ID Effective Begin Date Effective End Date [employer] Medicare [id number] Unknown Family History Family History data not found Social History Social History Element Codes Description Effective Dates Marital status Unknown 12/06/[address]: 9387713 Former smoker 2000 12/06/2011 Allergies, Adverse Reactions, Alerts Substance Reaction Codes Entered Date Inactivated Date Status * NO KNOWN FOOD ALLERGIES Unknown 10/30/2010 No Inactiv e Date Active PENICILLINS Unknown 10/30/2010 No Inactive Date Active * NO KNOWN ENVIRONMENTAL ALLERGIES Unknown 10/30/2010 N o Inactive Date Active Problems Condition Codes Effective Dates Condition Status FLU VACCINE ICD-10: Z23 ICD-9: V04.81 10/02/2016 Active assisted (current) use of anticoagulants ICD-10: Z79. 01 [...] for screening for malignant neoplasm of pros qauino ICD-10: Z12.5 ICD-9: V76.44 08/23/2014 Active Essential [...] 788.43 01/07/2019 Active Atherosclerotic heart disease of [place] coronary arter y without angina pectoris ICD-10: [...] Fill Instructions memantine 10 mg tablet RxNorm: 643266 TAKE 1 TABLET TWI CE DAILY (REPLACES NAMENDA XR) 06/26/2021 09/23/2021 Active escitalopram 20 mg tablet RxNorm: 826066 TAKE 1 TABLET AT BEDTIME 0 06/26/2021 09/23/2021 Active warfarin 2 mg tablet RxNorm: 597467 TAKE 1 AND 1/2 TABL ETS ON SATURDAY, SATURDAY, SATURDAY, SATURDAY AND TAKE 2 TABLETS ON SATURDAY, SATURDAY AND Saturday06/26/2021 09/23/2021 Active tamsulosin 0.4 mg capsule RxNorm: 890848 TAKE 1 CAPSULE EVERY DAY 0 06/26/2021 09/23/2021 Active carbidopa 25 mg-levodopa 100 mg tablet RxNorm: 068430 T PHAM 1 TABLET TWICE DAILY FOR TREMORS 06/26/2021 07/04/2021 Inactive Sinemet 25 mg-100 mg tablet RxNorm: 286139 Take 1 Table t(s) Oral two times a day for tremors 04/26/2021 04/26/2021 Inactive memantine 10 mg tablet RxNorm: 338078 TAKE 1 TABLET TWI CE DAILY (REPLACES NAMENDA XR) 04/12/2021 04/12/2021 Inactive warfarin 2 mg tablet RxNorm: 869545 2 Tablet(s) Oral Mo through Saturday and 1.5 tablets on Saturday/Saturday01/19/2021 No Stop Date Active tamsulosin 0.4 mg capsule RxNorm: 222631 TAKE 1 CAPSULE EVERY DAY 0 12/19/2020 12/19/2020 Inactive warfarin 2 mg tablet RxNorm: 302694 TAKE 1 AND 1/2 TABL ETS ON SATURDAY, SATURDAY, SATURDAY, SATURDAY AND TAKE 2 TABLETS ON SATURDAY, SATURDAY AND Saturday12/12/2020 01/18/2021 Inactive escitalopram 20 mg tablet RxNorm: 682674 TAKE 1 TABLET AT BEDTIME 0 11/28/2020 11/28/2020 Inactive Namenda 10 mg tablet RxNorm: 846786 TAKE 1 TABLET TWICE DAILY (REPLACES NAMENDA XR) 10/17/2020 10/17/2020 Inactive melatonin 10 mg capsule RxNorm: 477585 1 Capsule(s) Oral QD 020 No Stop Date Active tamsulosin 0.4 mg capsule RxNorm: 940673 TAKE 1 CAPSULE EVERY DAY 1 12/18/2020 Inactive warfarin 2 mg tablet RxNorm: 564724 TAKE 1 AND 1/2 TABL ETS ON SATURDAY, SATURDAY, SATURDAY, SATURDAY AND TAKE 2 TABLETS ON SATURDAY, SATURDAY AND Saturday07/12/2020 12/11/2020 Inactive warfarin 2 mg tablet RxNorm: 247176 TAKE 1 AND 1/2 TABL ETS ON SATURDAY, SATURDAY, SATURDAY, SATURDAY AND TAKE 2 TABLETS ON SATURDAY, SATURDAY AND Saturday06/27/2020 07/11/2020 Inactive Namenda 10 mg tablet RxNorm: 846695 TAKE 1 TABLET TWICE DAILY (REPLACES NAMENDA XR) 04/18/2020 10/16/2020 Inactive tamsulosin 0.4 mg capsule RxNorm: 599580 1 Capsule(s) Oral QD 02/1108/10/2020 Inactive Depakote ER 250 mg tablet,extended release RxNorm: 4186699 1 Tab let(s) Oral QPM 01/21/2020 04/20/2020 Inactive warfarin 2 mg tablet RxNorm: 682094 TAKE 1 AND 1/2 TABL ETS ON SATURDAY, SATURDAY, SATURDAY AND SATURDAY AND TAKE 2 TABLETS ON SATURDAY, SATURDAY AND Saturday12/14/2019 06/26/2020 Inactive escitalopram 20 mg tablet RxNorm: 640392 TAKE 1 TABLET AT BEDTIME 0 11/16/2019 11/27/2020 Inactive Namenda 10 mg tablet RxNorm: 695215 TAKE 1 TABLET TWICE DAILY (REPLACES NAMENDA XR) 10/08/2019 04/17/2020 Inactive tamsulosin 0.4 mg capsule RxNorm: 371261 1 Capsule(s) Oral QD 09/0202/11/2020 Inactive warfarin 2 mg tablet RxNorm: 171532 1.5 Tablet(s) PO on , , Sat, and Sun and 2 tablets on Sat, Sat, Sat07/13/2019 07/12/2019 Inactive Depakote ER 250 mg tablet,extended release RxNorm: 5357962 1 Tab let(s) PO BID 06/08/2019 09/05/2019 Inactive pravastatin 80 mg tablet RxNorm: 666740 TAKE 1 TABLET EVERY DAY 11/201809/01/2019 Inactive warfarin 2 mg tablet RxNorm: 910132 TAKE 1 AND 1/2 TABS ON SATURDAY,SATURDAY AND SATURDAY AND TAKE 2 TABS ON , , SAT AND SUN (NEED MD APPOINTMENT) 03/09/2019 07/13/2019 Inactive Namenda 10 mg tablet RxNorm: 399186 TAKE 1 TABLET TWICE DAILY (REPLACES NAMENDA XR) 02/09/2019 08/07/2019 Inactive doxepin 25 mg capsule RxNorm: 0992263 1 Capsule(s) PO QH S for sleep replaces 10mg dose 02/09/2019 04/21/2019 Inactive escitalopram 20 mg tablet RxNorm: 801286 1 Tablet(s) PO QHS 019 08/07/2019 Inactive tamsulosin 0.4 mg capsule RxNorm: 878080 1 Capsule(s) P O QPM for urinary frequency 01/07/2019 02/12/2020 Inactive divalproex 250 mg tablet,delayed release RxNorm: 5549572 1 Table t(s) PO QHS 01/07/2019 01/07/2019 Inactive doxepin 10 mg capsule RxNorm: 9523375 1-2 Capsule(s) PO QHS as n eeded for sleep 01/07/2019 02/08/2019 Inactive warfarin 2 mg tablet RxNorm: 598472 1 1/2 Tablet(s) PO MWF and 2 tablets on T Th Sat and Sun 12/29/2018 03/08/2019 Inactive metoprolol tartrate 50 mg tablet RxNorm: 242935 TAKE 1 TABLET T WICE DAILY 12/01/2018 06/30/2019 Inactive Namenda 10 mg tablet RxNorm: 527406 TAKE 1 TABLET TWICE DAILY (REPLACES NAMENDA XR) 09/22/2018 02/08/2019 Inactive warfarin 2 mg tablet RxNorm: 096879 1 1/2 Tablet(s) PO MWF and 2 tablets on T Th Sat and Sun 09/02/2018 09/01/2018 Inactive escitalopram 10 mg tablet RxNorm: 097602 1 Tablet(s) PO QHS 018 02/08/2019 Inactive pravastatin 80 mg tablet RxNorm: 470544 1 Tablet(s) PO QD 01/28/2018 10/24/2018 Inactive Namenda 10 mg tablet RxNorm: 846350 1 Tablet(s) PO BID 11/27/2017 Inactive escitalopram 10 mg tablet RxNorm: 955843 1 Tablet(s) PO QHS 018 06/09/2018 Inactive Namenda XR 28 mg capsule sprinkle,extended release RxNorm: 9 93393 TAKE ONE CAPSULE BY MOUTH ONCE DAILY 10/10/2017 11/26/2017 Inactive metoprolol tartrate 50 mg tablet RxNorm: 770752 Tablet( s) TAKE 1 TABLET TWICE DAILY 10/03/2017 09/27/2018 Inactive warfarin 2 mg tablet RxNorm: 218612 Tablet(s) TAKE 2 TA BLETS SATURDAY THROUGH SATURDAY AND 1 TABLET SATURDAY AND Saturday05/09/2017 09/02/2018 Inactive divalproex 250 mg tablet,delayed release RxNorm: 1506364 TAKE 1 TABLET TWICE DAILY 02/19/2017 01/06/2019 Inactive Namenda XR 28 mg capsule sprinkle,extended release RxNorm: 9 07074 TAKE 1 CAPSULE EVERY DAY 02/11/2017 10/09/2017 Inactive pravastatin 80 mg tablet RxNorm: 530100 1 Tablet(s) PO QD 01/21/2017 01/28/2018 Inactive Namenda XR 28 mg capsule sprinkle,extended release RxNorm: 9 04748 TAKE ONE CAPSULE BY MOUTH ONCE DAILY 09/24/2016 02/10/2017 Inactive metoprolol tartrate 50 mg tablet RxNorm: 002966 TAKE 1 TABLET T WICE DAILY 09/10/2016 10/03/2017 Inactive warfarin 2 mg tablet RxNorm: 048405 TAKE 2 TABLETS THROUGH SATURDAY AND 1 TABLET SATURDAY AND Saturday2016 05/09/2017 Inactive divalproex 250 mg tablet,delayed release RxNorm: 0164932 1 Table t(s) PO QHS 12/19/2015 12/12/2016 Inactive pravastatin 80 mg tablet RxNorm: 111686 1 Tablet(s) PO QD 12/19/2015 01/21/2017 Inactive Namenda XR 28 mg capsule sprinkle,extended release RxNorm: 9 36575 1 Capsule(s) PO QD 11/11/2015 09/23/2016 Inactive divalproex 250 mg tablet,delayed release RxNorm: 1244653 1 Table t(s) PO QHS 10/10/2015 12/19/2015 Inactive Namenda XR 28 mg capsule sprinkle,extended release RxNorm: 9 67659 1 Capsule(s) PO QD TAKE 1 CAPSULE EVERY DAY 11/09/2014 11/11/2015 Inactive Namenda XR 28 mg capsule sprinkle,ER 24hr RxNorm: 593152 1 PO QD TAKE ONE CAPSULE BY MOUTH ONCE DAILY 10/07/2014 11/09/2014 Inactive Namenda XR 28 mg capsule sprinkle,ER 24hr RxNorm: 759736 1 Caps ule(s) PO QD 11/10/2013 10/07/2014 Inactive metoprolol tartrate 50 mg tablet RxNorm: 819701 1 Tablet(s) PO BID 05/14/2013 05/08/2014 Inactive 1BID (REPLACES TOPROL) - [place] E ONE TABLET BY MOUTH TWICE DAILY (REPLACES TOPROL) Ativan 1 mg tablet RxNorm: 742160 1 Tablet(s) PO BID 05/01/201310/09 Inactive as needed for anxiety pravastatin 40 mg tablet RxNorm: 667041 1 Tablet(s) PO QD due for labs in late summer03/26/2013 11/10/2014 Inactive warfarin 2 mg tablet RxNorm: 785166 1 Tablet(s) PO Take 2 tablets by mouth Saturday through Saturday and 1 tablet on Saturday and Saturday10/07/2012 Inactive pravastatin 40 mg tablet RxNorm: 466688 1 Tablet(s) PO QD 08/13/2012 03/26/2013 Inactive metoprolol tartrate 50 mg tablet RxNorm: 033613 1 Tablet(s) PO BID 08/13/2012 05/14/2013 Inactive 1BID (REPLACES TOPROL) - [place] E ONE TABLET BY MOUTH TWICE DAILY (REPLACES TOPROL) warfarin 2 mg tablet RxNorm: 137731 1 Tablet(s) PO QD 08/13/201202/2012 Inactive warfarin 2 mg tablet RxNorm: 563257 Tablet(s) PO 11/07/2011 08/13/2012 Inactive 2QD - TAKE TWO TABLETS BY MOUTH EVERY DAY SATURDAY THROUGH SATURDAY AND 1 TABLET ON SATURDAY AND SATURDAY pravastatin 40 mg tablet RxNorm: 285062 1 Tablet(s) PO QD 10/15/2011 08/13/2012 Inactive Ativan 1 mg tablet RxNorm: 649971 1 Tablet(s) PO BID 10/01/201109/30 Active as needed for anxiety metoprolol tartrate 50 mg tablet RxNorm: 877541 1 Tablet(s) PO BID 08/27/2011 08/13/2012 Inactive 1BID (REPLACES TOPROL) - [place] E ONE TABLET BY MOUTH TWICE DAILY (REPLACES TOPROL) pravastatin 40 mg Tab RxNorm: 529158 1 Tablet(s) PO QD 07/10/201109/2011 Inactive Ativan 1 mg Tab RxNorm: 826388 1 Tablet(s) PO BID 07/02/2011 1 Active as needed for anxiety metoprolol tartrate 50 mg Tab RxNorm: 414295 1 Tablet(s ) PO BID 1BID (REPLACES TOPROL) - TAKE ONE TABLET BY MOUTH TWICE DAILY (REPLACES TOPROL) 03/12/2011 08/26/2011 Inactive Ativan 1 mg Tab RxNorm: 322551 1 Tablet(s) PO BID as needed for anxiety 02/26/2011 02/25/2011 Active warfarin 2 mg Tab RxNorm: 089443 Tablet(s) PO 2QD - T PHAM TWO TABLETS BY MOUTH EVERY DAY SATURDAY THROUGH SATURDAY AND 1 TABLET ON SATURDAY AND Saturday12/18/2010 11/07/2011 Inactive Ativan 1 mg Tab RxNorm: 044628 1 Tablet(s) PO BID PRN for anxiety 0 11/06/2010 01/06/2019 Inactive metoprolol tartrate 50 mg Tab RxNorm: 931749 1 Tablet(s ) PO BID 1BID (REPLACES TOPROL) - TAKE ONE TABLET BY MOUTH TWICE DAILY (REPLACES TOPROL) 09/11/2010 03/12/2011 Inactive Ativan 1 mg Tab RxNorm: 481357 1 Tablet(s) PO BID PRN for anxiety 1 11/06/2010 Inactive warfarin 2 mg Tab RxNorm: 899360 Tablet(s) PO 2QD - T PHAM TWO TABLETS BY MOUTH EVERY DAY SATURDAY THROUGH SATURDAY AND 1 TABLET ON SATURDAY AND Saturday07/24/2010 10/29/2010 Inactive metoprolol tartrate 50 mg Tab RxNorm: 310146 1 Tablet(s) PO QD 01/201009/11/2010 Inactive pravastatin 40 mg Tab RxNorm: 490243 1 Tablet(s) PO QD 06/06/201004/2011 Inactive Warfarin 2 mg Tab RxNorm: 466775 2 Tablet(s) PO QD 2 tablets by mouth Saturday through Saturday, and one tablet by mouth on Saturday and Saturday. 06/06/2010 07/23/2010 Inactive Ativan 1 mg Tab RxNorm: 808993 1 Tablet(s) PO QHS PRN for anxiety 0 06/06/2010 08/27/2010 Inactive Pravastatin 40 mg Tab RxNorm: 506751 1 Tablet(s) PO QD 04/14/201012/2009 Inactive Ativan 1 mg Tab RxNorm: 282979 1 Tablet(s) PO BID PRN for anxiety 0 02/23/2010 06/02/2010 Inactive Probiotic oral RxNorm: 6205 oral 04/07/2020 Active [place] 3 Natural Fish Oil Conc capsule RxNorm: 1 Capsule(s) PO QD 0 11/27/2017 Active turmeric-turmeric root extract oral RxNorm: 3552767 oral 11/27/19 18 Active magnesium oral RxNorm: 6574 oral 04/07/2020 Active Vitamin D3 5,000 unit tablet RxNorm: 227305 1 Tablet(s) PO QD 019 Active warfarin 2 mg tablet RxNorm: 744367 1 Tablet(s) PO QD 08/13/201207/2012 Inactive Ativan 1 mg Tab RxNorm: 132286 1 Tablet(s) PO BID as needed for anxiety 02/26/2011 02/25/2011 Inactive warfarin 2 mg Tab RxNorm: 377400 2 Tablet(s) PO QD saturday06/06/2012 06/05/2012 Inactive Tricor 145 mg Tab RxNorm: 841769 1 Tablet(s) PO QD 12/06/2011 012 Inactive warfarin 4 mg tablet RxNorm: 027701 Tablet(s) PO 11/27/2017 11/26/2017 Inactive warfarin 2 mg Tab RxNorm: 147813 1 Tablet(s) PO QD on saturday and saturday06/06/2012 06/05/2012 Inactive warfarin 2 mg tablet RxNorm: 964043 1.5 Tablet(s) PO on , , Sat, and Sun and 2 tablets on Sat, Sat, Sat07/13/2019 07/12/2019 Inactive pravastatin 80 mg tablet RxNorm: 651806 1 Tablet(s) PO QD 12/19/2015 12/19/2015 Inactive metoprolol tartrate 50 mg tablet RxNorm: 920762 1 Tablet(s) PO QD 1 09/01/2019 Inactive Warfarin 2 mg Tab RxNorm: 493316 Tablet(s) PO 2 table ts by mouth Saturday through Saturday, and one tablet by mouth on Saturday and Saturday. 06/06/201012/2009 Inactive Namenda 10 mg Tab RxNorm: 630187 2 Tablet(s) PO QD 07/02/2013 013 Inactive warfarin 2 mg tablet RxNorm: 744355 1 1/2 Tablet(s) PO MWF and 2 tablets on Sat and Sun 09/02/2018 09/01/2018 Inactive Ativan 1 mg Tab RxNorm: 321005 1 Tablet(s) PO BID PRN for anxiety 04/20/2010 04/19/2010 Inactive warfarin 2 mg Tab RxNorm: 229781 Tablet(s) PO take 2 tablets by mouth Sat-Sat and 1 tablet on Saturday and Saturday06/06/2012 06/05/2012 Inactive Depakote ER 250 mg tablet,extended release RxNorm: 2781041 1 Tab let(s) PO BID 11/27/2017 11/26/2017 Inactive warfarin 1 mg Tab RxNorm: 021146 1 Tablet(s) PO on Saturday and Saturday10/30/2010 [...] Code Result Date S ervice Location PT [id number] PT 24.4 Seconds 07/05/2021 Unknow n PT [id number] INR 2.2 07/05/2021 Unknown PT [id number] PT 25.2 Seconds 04/28/2021 Unknow n PT [id number] INR 2.3 04/28/2021 Unknown THYROID STIMULATING HORMONE 96145 TSH 2.271 uIU/mL 04/28/2021 Unknown COMPREHENSIVE METABOLIC 88348 AST 18 U/L 2020 Unknown COMPREHENSIVE METABOLIC 14886 ALT 9 U/L 2020 Unknown COMPREHENSIVE METABOLIC 02223 BUN 17 mg/dL 2020 Unknown COMPREHENSIVE METABOLIC 91185 ALBUMIN 3.8 g/dL 2020 Unknown COMPREHENSIVE METABOLIC 94711 CHLORIDE 108 mmol/L 04/28 Unknown COMPREHENSIVE METABOLIC 96201 Bili Total 0.7 mg/dL 04/28 Unknown COMPREHENSIVE METABOLIC 91122 ALK PHOS 76 U/L 2020 Unknown COMPREHENSIVE METABOLIC 44479 SODIUM 140 mmol/L 04/28 Unknown COMPREHENSIVE METABOLIC 98094 CREATININE 0.83 mg/dL 04/05 Unknown COMPREHENSIVE METABOLIC 22450 CALCIUM 9.5 mg/dL 2020 Unknown COMPREHENSIVE METABOLIC 70264 POTASSIUM 4.1 mmol/L 04/28 Unknown COMPREHENSIVE METABOLIC 65406 Total Protein 6.9 g/dL Unknown COMPREHENSIVE METABOLIC 86897 Glucose 106 mg/dL 2020 Unknown COMPREHENSIVE METABOLIC 55692 Bicarbonate 26 mmol/L 04/05 Unknown COMPREHENSIVE METABOLIC 02422 AGAP 6 mmol/L 2020 Unknown GFR CALC [id number] GFR Afr Amr >60 mL/min 04/28/2021 Unknow n GFR CALC [id number] GFR Non Afr Amr >60 mL/min 04/28/2021 Un known COMPLETE BLOOD COUNT [id number] WBC 4.6 10e9/L 04/28/20 21 Unknown COMPLETE BLOOD COUNT [id number] RBC 4.39 10e12/L 2020 Unknown COMPLETE BLOOD COUNT [id number] HEMOGLOBIN 14.2 g/dL 04/28/20 21 Unknown COMPLETE BLOOD COUNT [id number] HEMATOCRIT 41.1 % 04/28/20 21 Unknown COMPLETE BLOOD COUNT [id number] MCV 93.6 fL 1 Unknown COMPLETE BLOOD COUNT [id number] MCH 32.3 pg 1 Unknown COMPLETE BLOOD COUNT [id number] MCHC 34.5 g/dL 1 Unknown COMPLETE BLOOD COUNT [id number] PLATELET COUNT 198 10e9/L Unknown COMPLETE BLOOD COUNT [id number] Mean Plt Volume 9.3 fL Unknown COMPLETE BLOOD COUNT [id number] Neut Auto 54.8 % 1 Unknown COMPLETE BLOOD COUNT [id number] Lymph Auto 33.7 % 04/28/20 21 Unknown COMPLETE BLOOD COUNT [id number] Coffee Auto 9.6 % 1 Unknown COMPLETE BLOOD COUNT [id number] RDW 12.2 % 1 Unknown COMPLETE BLOOD COUNT [id number] Eos Auto 1.7 % 1 Unknown COMPLETE BLOOD COUNT [id number] Baso Auto 0.2 % 1 Unknown COMPLETE BLOOD COUNT [id number] Neutrophil Abs 2.52 10e9/L Unknown COMPLETE BLOOD COUNT 9114719 Lymphocyte Abs 1.55 10e9/L Unknown COMPLETE BLOOD COUNT [id number] Monocyte Abs 0.44 10e9/L 04/05 Unknown COMPLETE BLOOD COUNT [id number] Eosinophil Abs 0.08 10e9/L Unknown COMPLETE BLOOD COUNT [id number] RDW-SD 40.9 fL Unknown COMPLETE BLOOD COUNT [id number] Basophil Abs 0.01 10e9/L 04/05 Unknown FREE T4 97469 T4 Free 0.81 ng/dL 04/28/2021 Unknown PT [id number] PT 19.8 Seconds 01/18/2021 Unknow n PT [id number] INR 1.6 01/18/2021 Unknown PT [id number] PT 18.7 Seconds 10/14/2020 Unknow n PT [id number] INR 1.5 10/14/2020 Unknown COMPREHENSIVE METABOLIC 25039 AST 17 U/L 2019 Unknown COMPREHENSIVE METABOLIC 39574 ALT 10 U/L 2019 Unknown COMPREHENSIVE METABOLIC 52258 BUN 19 mg/dL 2019 Unknown COMPREHENSIVE METABOLIC 63141 ALBUMIN 4.1 g/dL 2019 Unknown COMPREHENSIVE METABOLIC 49373 CHLORIDE 103 mmol/L 10/14 Unknown COMPREHENSIVE METABOLIC 75832 Bili Total 0.6 mg/dL 10/14 Unknown COMPREHENSIVE METABOLIC 34769 ALK PHOS 65 U/L 2019 Unknown COMPREHENSIVE METABOLIC 82048 SODIUM 141 mmol/L 10/14 Unknown COMPREHENSIVE METABOLIC 35963 CREATININE 0.77 mg/dL 10/04 Unknown COMPREHENSIVE METABOLIC 68052 CALCIUM 9.2 mg/dL 2019 Unknown COMPREHENSIVE METABOLIC 91164 POTASSIUM 4.2 mmol/L 10/14 Unknown COMPREHENSIVE METABOLIC 57072 Total Protein 6.7 g/dL Unknown COMPREHENSIVE METABOLIC 42322 Glucose 91 mg/dL 2019 Unknown COMPREHENSIVE METABOLIC 74480 Bicarbonate 28 mmol/L 10/04 Unknown COMPREHENSIVE METABOLIC 05632 AGAP 10 mmol/L 2019 Unknown FREE T4 37367 T4 Free 0.81 ng/dL 10/14/2020 Unknown HEMOGLOBIN A1C (GLYCOSYLATED) 3049694 Hgb A1c 31473-6 4.4 % 10/14/2020 Unknown HEMOGLOBIN A1C (GLYCOSYLATED) 5746911 Calc Mean Gluc 80 mg /dL 10/14/2020 Unknown COMPLETE BLOOD COUNT [id number] WBC 5.4 10e9/L 10/14/20 20 Unknown COMPLETE BLOOD COUNT [id number] RBC 4.40 10e12/L 2019 Unknown COMPLETE BLOOD COUNT 0470589 HEMOGLOBIN 14.4 g/dL 10/14/20 20 Unknown COMPLETE BLOOD COUNT [id number] HEMATOCRIT 42.4 % 10/14/20 20 Unknown COMPLETE BLOOD COUNT [id number] MCV 96.4 fL 0 Unknown COMPLETE BLOOD COUNT 1874846 MCH 32.7 pg 0 Unknown COMPLETE BLOOD COUNT [id number] MCHC 34.0 g/dL 0 Unknown COMPLETE BLOOD COUNT [id number] PLATELET COUNT 216 10e9/L 09/2020 Unknown COMPLETE BLOOD COUNT [id number] Mean Plt Volume 9.5 fL 09/2020 Unknown COMPLETE BLOOD COUNT 5628900 Neut Auto 57.6 % 0 Unknown COMPLETE BLOOD COUNT 2659679 Lymph Auto 31.5 % 10/14/20 20 Unknown COMPLETE BLOOD COUNT 3324231 Coffee Auto 9.0 % 0 Unknown COMPLETE BLOOD COUNT [id number] RDW 12.4 % 0 Unknown COMPLETE BLOOD COUNT 2151456 Eos Auto 1.7 % 0 Unknown COMPLETE BLOOD COUNT 5796933 Baso Auto 0.2 % 0 Unknown COMPLETE BLOOD COUNT [id number] Neutrophil Abs 3.11 10e9/L Unknown COMPLETE BLOOD COUNT [id number] Lymphocyte Abs 1.70 10e9/L Unknown COMPLETE BLOOD COUNT [id number] Monocyte Abs 0.49 10e9/L 10/04 Unknown COMPLETE BLOOD COUNT [id number] Eosinophil Abs 0.09 10e9/L Unknown COMPLETE BLOOD COUNT [id number] Basophil Abs 0.01 10e9/L 10/04 Unknown COMPLETE BLOOD COUNT 1677322 RDW-SD 42.4 fL 0 Unknown THYROID STIMULATING HORMONE 60080 TSH 2.071 uIU/mL 10/14/2020 Unknown LIPID GROUP 53143 Cholesterol 217 mg/dL 10/14/2020 Unkno wn LIPID GROUP 70627 Triglyceride 108 mg/dL 10/14/2020 Unkn own LIPID GROUP 45995 HDL CHOLESTEROL 46 mg/dL 10/14/2020 U nknown LIPID GROUP 34042 Chol/HDL Ratio 4.72 ratio 10/14/2020 U nknown LIPID GROUP 39901 NON-HDL Chol 171 mg/dL 10/14/2020 Unkn own LIPID GROUP 36008 LDL Cholesterol 149 mg/dL 10/14/2020 U nknown GFR CALC 3376919 GFR Afr Amr >60 mL/min 10/14/2020 Unknow n GFR CALC 1575893 GFR Non Afr Amr >60 mL/min 10/14/2020 Un known COMPLETE BLOOD COUNT 6740953 WBC 7.6 10e9/L 04/06/20 20 Unknown COMPLETE BLOOD COUNT [id number] RBC 3.90 10e12/L 2019 Unknown COMPLETE BLOOD COUNT 0353254 HEMOGLOBIN 12.0 g/dL 04/06/20 20 Unknown COMPLETE BLOOD COUNT [id number] HEMATOCRIT 36.9 % 04/06/20 20 Unknown COMPLETE BLOOD COUNT [id number] MCV 94.6 fL 0 Unknown COMPLETE BLOOD COUNT 8001278 MCH 30.8 pg 0 Unknown COMPLETE BLOOD COUNT 6565817 MCHC 32.5 g/dL 0 Unknown COMPLETE BLOOD COUNT 8705883 PLATELET COUNT 257 10e9/L 01/2020 Unknown COMPLETE BLOOD COUNT 5517633 Mean Plt Volume 8.6 fL 01/2020 Unknown COMPLETE BLOOD COUNT 9735144 Neut Auto 68.7 % 0 Unknown COMPLETE BLOOD COUNT 7309817 Lymph Auto 22.0 % 04/06/20 20 Unknown COMPLETE BLOOD COUNT [id number] Coffee Auto 8.3 % 0 Unknown COMPLETE BLOOD COUNT 1249701 RDW 12.7 % 0 Unknown COMPLETE BLOOD COUNT 4447279 Eos Auto 0.7 % 0 Unknown COMPLETE BLOOD COUNT 5004302 Baso Auto 0.3 % 0 Unknown COMPLETE BLOOD COUNT [id number] Neutrophil Abs 5.22 10e9/L Unknown COMPLETE BLOOD COUNT 5810862 Lymphocyte Abs 1.67 10e9/L Unknown COMPLETE BLOOD COUNT 0507578 Monocyte Abs 0.63 10e9/L 01/2020 Unknown COMPLETE BLOOD COUNT [id number] Eosinophil Abs 0.05 10e9/L Unknown COMPLETE BLOOD COUNT 4594830 RDW-SD 42.6 fL 0 Unknown COMPLETE BLOOD COUNT [id number] Basophil Abs 0.02 10e9/L 01/2020 Unknown PT [id number] PT 19.3 Seconds 04/06/2020 Unknow n PT [id number] INR 1.6 04/06/2020 Unknown COMPREHENSIVE METABOLIC 85016 AST 12 U/L 2019 Unknown COMPREHENSIVE METABOLIC 99579 ALT 7 U/L 2019 Unknown COMPREHENSIVE METABOLIC 44989 BUN 19 mg/dL 2019 Unknown COMPREHENSIVE METABOLIC 18057 ALBUMIN 3.8 g/dL 2019 Unknown COMPREHENSIVE METABOLIC 87229 CHLORIDE 103 mmol/L 04/06 Unknown COMPREHENSIVE METABOLIC 32649 Bili Total 0.4 mg/dL 04/06 Unknown COMPREHENSIVE METABOLIC 82204 ALK PHOS 78 U/L 2019 Unknown COMPREHENSIVE METABOLIC 60222 SODIUM 141 mmol/L 04/06 Unknown COMPREHENSIVE METABOLIC 46107 CREATININE 0.90 mg/dL 01/2020 Unknown COMPREHENSIVE METABOLIC 57188 CALCIUM 9.0 mg/dL 2019 Unknown COMPREHENSIVE METABOLIC 25945 POTASSIUM 3.8 mmol/L 04/06 Unknown COMPREHENSIVE METABOLIC 09456 Total Protein 6.1 g/dL Unknown COMPREHENSIVE METABOLIC 19467 Glucose 125 mg/dL 2019 Unknown COMPREHENSIVE METABOLIC 55585 Bicarbonate 27 mmol/L 01/2020 Unknown COMPREHENSIVE METABOLIC 67742 AGAP 11 mmol/L 2019 Unknown GFR CALC [id number] GFR Non Afr Amr >60 mL/min 04/06/2020 Un known GFR CALC [id number] GFR Afr Amr >60 mL/min 04/06/2020 Unknow n PT [id number] PT 25.2 Seconds 09/02/2019 Unknow n PT [id number] INR 2.2 09/02/2019 Unknown PT 5813928 PT 26.5 Seconds 04/22/2019 Unknow n PT [id number] INR 2.3 04/22/2019 Unknown FERRITIN 34528 FERRITIN 240.3 ng/mL 04/22/2019 Unknown COMPLETE BLOOD COUNT 1102035 WBC 7.7 10e9/L 04/22/20 19 Unknown COMPLETE BLOOD COUNT 6668352 RBC 4.19 10e12/L 2018 Unknown COMPLETE BLOOD COUNT 6426250 HEMOGLOBIN 13.5 g/dL 04/22/20 19 Unknown COMPLETE BLOOD COUNT 6344582 HEMATOCRIT 39.6 % 04/22/20 19 Unknown COMPLETE BLOOD COUNT [id number] MCV 94.5 fL 9 Unknown COMPLETE BLOOD COUNT [id number] MCH 32.2 pg 9 Unknown COMPLETE BLOOD COUNT 1449803 MCHC 34.1 g/dL 9 Unknown COMPLETE BLOOD COUNT 9631469 PLATELET COUNT 235 10e9/L Unknown COMPLETE BLOOD COUNT [id number] Mean Plt Volume 9.8 fL Unknown COMPLETE BLOOD COUNT 1285432 Neut Auto 68.5 % 9 Unknown COMPLETE BLOOD COUNT 5308734 Lymph Auto 22.4 % 04/22/20 19 Unknown COMPLETE BLOOD COUNT [id number] Coffee Auto 8.3 % 9 Unknown COMPLETE BLOOD COUNT 5781485 RDW 12.4 % 9 Unknown COMPLETE BLOOD COUNT [id number] Eos Auto 0.5 % 9 Unknown COMPLETE BLOOD COUNT [id number] Baso Auto 0.3 % 9 Unknown COMPLETE BLOOD COUNT [id number] Neutrophil Abs 5.27 10e9/L Unknown COMPLETE BLOOD COUNT [id number] Lymphocyte Abs 1.72 10e9/L Unknown COMPLETE BLOOD COUNT [id number] Monocyte Abs 0.64 10e9/L 04/04 Unknown COMPLETE BLOOD COUNT [id number] Eosinophil Abs 0.04 10e9/L Unknown COMPLETE BLOOD COUNT [id number] Basophil Abs 0.02 10e9/L 04/04 Unknown COMPLETE BLOOD COUNT [id number] RDW-SD 41.6 fL 9 Unknown IRON 00363 Iron 95 ug/dL 04/22/2019 Unknown GFR CALC [id number] GFR Non Afr Amr >60 mL/min 01/05/2019 Un known GFR CALC [id number] GFR Afr Amr >60 mL/min 01/05/2019 Unknow n COMPREHENSIVE METABOLIC 60862 AST 15 U/L 2018 Unknown COMPREHENSIVE METABOLIC 57553 ALT 11 U/L 2018 Unknown COMPREHENSIVE METABOLIC 49429 BUN 16 mg/dL 2018 Unknown COMPREHENSIVE METABOLIC 30639 ALBUMIN 3.9 g/dL 2018 Unknown COMPREHENSIVE METABOLIC 47448 CHLORIDE 106 mmol/L 01/05 Unknown COMPREHENSIVE METABOLIC 77158 Bili Total 0.7 mg/dL 01/05 Unknown COMPREHENSIVE METABOLIC 18183 ALK PHOS 50 U/L 2018 Unknown COMPREHENSIVE METABOLIC 28106 SODIUM 138 mmol/L 01/05 Unknown COMPREHENSIVE METABOLIC 97592 CREATININE 0.74 mg/dL 02/2019 Unknown COMPREHENSIVE METABOLIC 82955 CALCIUM 9.0 mg/dL 2018 Unknown COMPREHENSIVE METABOLIC 81434 POTASSIUM 4.3 mmol/L 01/05 Unknown COMPREHENSIVE METABOLIC 51033 Total Protein 6.4 g/dL Unknown COMPREHENSIVE METABOLIC 34006 Glucose 114 mg/dL 2018 Unknown COMPREHENSIVE METABOLIC 99579 Bicarbonate 26 mmol/L 02/2019 Unknown COMPREHENSIVE METABOLIC 34591 AGAP 6 mmol/L 2018 Unknown COMPLETE BLOOD COUNT [id number] WBC 5.5 10e9/L 01/06/20 19 Unknown COMPLETE BLOOD COUNT [id number] RBC 4.27 10e12/L 2018 Unknown COMPLETE BLOOD COUNT [id number] HEMOGLOBIN 14.0 g/dL 01/06/20 19 Unknown COMPLETE BLOOD COUNT [id number] HEMATOCRIT 40.6 % 01/06/20 19 Unknown COMPLETE BLOOD COUNT [id number] MCV 95.1 fL 9 Unknown COMPLETE BLOOD COUNT [id number] MCH 32.8 pg 9 Unknown COMPLETE BLOOD COUNT [id number] MCHC 34.5 g/dL 9 Unknown COMPLETE BLOOD COUNT [id number] PLATELET COUNT 211 10e9/L 02/2019 Unknown COMPLETE BLOOD COUNT [id number] Mean Plt Volume 9.8 fL 02/2019 Unknown COMPLETE BLOOD COUNT [id number] Neut Auto 64.7 % 9 Unknown COMPLETE BLOOD COUNT [id number] Lymph Auto 24.3 % 01/06/20 19 Unknown COMPLETE BLOOD COUNT [id number] Coffee Auto 9.7 % 9 Unknown COMPLETE BLOOD COUNT [id number] Eos Auto 1.1 % 9 Unknown COMPLETE BLOOD COUNT [id number] RDW 12.2 % 9 Unknown COMPLETE BLOOD COUNT [id number] Baso Auto 0.2 % 9 Unknown COMPLETE BLOOD COUNT [id number] Neutrophil Abs 3.56 10e9/L Unknown COMPLETE BLOOD COUNT [id number] Lymphocyte Abs 1.34 10e9/L Unknown COMPLETE BLOOD COUNT [id number] Monocyte Abs 0.53 10e9/L 02/2019 Unknown COMPLETE BLOOD COUNT [id number] Eosinophil Abs 0.06 10e9/L Unknown COMPLETE BLOOD COUNT [id number] Basophil Abs 0.01 10e9/L 03/0 02/2019 Unknown COMPLETE BLOOD COUNT [id number] RDW-SD 41.3 fL 9 Unknown [facility] 48454 Cholesterol 145 mg/dL 01/05/2019 Unkno wn LIPID GROUP 89008 Triglyceride 153 mg/dL 01/05/2019 Unkn own L[facility] GROUP 58028 HDL CHOLESTEROL 39 mg/dL 01/05/2019 U nknown L[facility] GROUP 89024 Chol/HDL Ratio 3.72 ratio 01/05/2019 U nknown [facility] 65097 NON-HDL Chol 106 mg/dL 01/05/2019 Unkn own [facility] 96719 LDL Cholesterol 75 mg/dL 01/05/2019 U nknown PT [id number] PT 30.5 Seconds 12/15/2018 Unknow n PT 1005103 INR 2.9 12/15/2018 Unknown PT [id number] PT 17.2 Seconds 09/08/2018 Unknow n PT [id number] INR 1.4 09/08/2018 Unknown L[facility] 41063 Cholesterol 190 mg/dL 07/08/2018 Unkno wn [facility] 48184 Triglyceride 402 mg/dL 07/08/2018 Unkn own [facility] 94565 HDL CHOLESTEROL 36 mg/dL 07/08/2018 U nknown [facility] 91374 Chol/HDL Ratio 5.28 ratio 07/08/2018 U nknown [facility] 51245 NON-HDL Chol 154 mg/dL 07/08/2018 Unkn own [facility] 33556 LDL Cholesterol N/A Trig >400 018 Unknown GFR CALC 8467451 GFR Non Afr Amr >60 mL/min 07/08/2018 Un known GFR CALC 3573056 GFR Afr Amr >60 mL/min 07/08/2018 Unknow n COMPLETE BLOOD COUNT [id number] WBC 5.0 10e9/L 07/08/20 18 Unknown COMPLETE BLOOD COUNT [id number] RBC 4.08 10e12/L 2017 Unknown COMPLETE BLOOD COUNT [id number] HEMOGLOBIN 13.3 g/dL 07/08/20 18 Unknown COMPLETE BLOOD COUNT [id number] HEMATOCRIT 38.6 % 07/08/20 18 Unknown COMPLETE BLOOD COUNT [id number] MCV 94.6 fL 8 Unknown COMPLETE BLOOD COUNT [id number] MCH 32.6 pg 8 Unknown COMPLETE BLOOD COUNT [id number] MCHC 34.5 g/dL 8 Unknown COMPLETE BLOOD COUNT [id number] PLATELET COUNT 205 10e9/L 02/2018 Unknown COMPLETE BLOOD COUNT [id number] Mean Plt Volume 9.8 fL 02/2018 Unknown COMPLETE BLOOD COUNT [id number] Neut Auto 52.8 % 8 Unknown COMPLETE BLOOD COUNT 1059575 Lymph Auto 33.2 % 07/08/20 18 Unknown COMPLETE BLOOD COUNT [id number] Coffee Auto 11.6 % 8 Unknown COMPLETE BLOOD COUNT 6489943 Eos Auto 2.0 % 8 Unknown COMPLETE BLOOD COUNT 9741837 RDW 12.5 % 8 Unknown COMPLETE BLOOD COUNT 9232689 Baso Auto 0.4 % 8 Unknown COMPLETE BLOOD COUNT 2329448 Neutrophil Abs 2.64 10e9/L Unknown COMPLETE BLOOD COUNT [id number] Lymphocyte Abs 1.66 10e9/L Unknown COMPLETE BLOOD COUNT [id number] Monocyte Abs 0.58 10e9/L 02/2018 Unknown COMPLETE BLOOD COUNT [id number] Eosinophil Abs 0.10 10e9/L Unknown COMPLETE BLOOD COUNT 5328677 RDW-SD 41.8 fL 8 Unknown COMPLETE BLOOD COUNT [id number] Basophil Abs 0.02 10e9/L 02/2018 Unknown PT [id number] PT 32.9 Seconds 07/08/2018 Unknow n PT [id number] INR 3.2 07/08/2018 Unknown PT [id number] PT TNP:Duplicate Order 8 Unknown PT [id number] INR TNP:Duplicate Order 8 Unknown COMPREHENSIVE METABOLIC 29151 AST TNP:Duplicate Or grace 07/08/2018 Unknown COMPREHENSIVE METABOLIC 52125 ALT TNP:Duplicate Or grace 07/08/2018 Unknown COMPREHENSIVE METABOLIC 53538 BUN TNP:Duplicate Or grace 07/08/2018 Unknown COMPREHENSIVE METABOLIC 86093 ALBUMIN TNP:Duplicate Or grace 07/08/2018 Unknown COMPREHENSIVE METABOLIC 09678 CHLORIDE TNP:Duplicate Or grace 07/08/2018 Unknown COMPREHENSIVE METABOLIC 18960 Bili Total TNP:Duplicate O rder 07/08/2018 Unknown COMPREHENSIVE METABOLIC 16318 ALK PHOS TNP:Duplicate Or grace 07/08/2018 Unknown COMPREHENSIVE METABOLIC 51581 SODIUM TNP:Duplicate Or grace 07/08/2018 Unknown COMPREHENSIVE METABOLIC 73671 CREATININE TNP:Duplicate O rder 07/08/2018 Unknown COMPREHENSIVE METABOLIC 54588 CALCIUM TNP:Duplicate Or grace 07/08/2018 Unknown COMPREHENSIVE METABOLIC 35366 POTASSIUM TNP:Duplicate Or grace 07/08/2018 Unknown COMPREHENSIVE METABOLIC 45320 Total Protein TNP:Duplicat e Order 07/08/2018 Unknown COMPREHENSIVE METABOLIC 76187 Glucose TNP:Duplicate Or grace 07/08/2018 Unknown COMPREHENSIVE METABOLIC 10050 Bicarbonate TNP:Duplicate Order 07/08/2018 Unknown COMPREHENSIVE METABOLIC 81659 AGAP TNP:Duplicate Or grace 07/08/2018 Unknown COMPREHENSIVE METABOLIC 68035 AST 17 U/L 2017 Unknown COMPREHENSIVE METABOLIC 74995 ALT 12 U/L 2017 Unknown COMPREHENSIVE METABOLIC 26773 BUN 20 mg/dL 2017 Unknown COMPREHENSIVE METABOLIC 47868 ALBUMIN 4.0 g/dL 2017 Unknown COMPREHENSIVE METABOLIC 07641 CHLORIDE 107 mmol/L 07/08 Unknown COMPREHENSIVE METABOLIC 24130 Bili Total 0.3 mg/dL 07/08 Unknown COMPREHENSIVE METABOLIC 06063 ALK PHOS 58 U/L 2017 Unknown COMPREHENSIVE METABOLIC 17905 SODIUM 139 mmol/L 07/08 Unknown COMPREHENSIVE METABOLIC 86487 CREATININE 0.72 mg/dL 02/2018 Unknown COMPREHENSIVE METABOLIC 84463 CALCIUM 7.8 mg/dL 2017 Unknown COMPREHENSIVE METABOLIC 58133 POTASSIUM 4.1 mmol/L 07/08 Unknown COMPREHENSIVE METABOLIC 20966 Total Protein 6.2 g/dL Unknown COMPREHENSIVE METABOLIC 84459 Glucose 107 mg/dL 2017 Unknown COMPREHENSIVE METABOLIC 42675 Bicarbonate 22 mmol/L 02/2018 Unknown COMPREHENSIVE METABOLIC 41843 AGAP 10 mmol/L 2017 Unknown GFR CALC 0474374 GFR Afr Amr >60 mL/min 11/28/2017 Unknow n GFR CALC 3772125 GFR Non Afr Amr >60 mL/min 11/28/2017 Un known THYROID STIMULATING HORMONE 31660 TSH 4.029 uIU/mL 11/28/2017 Unknown LIPID GROUP 65448 Cholesterol 181 mg/dL 11/28/2017 Unkno wn LIPID GROUP 78021 Triglyceride 193 mg/dL 11/28/2017 Unkn own LIPID GROUP 26268 HDL CHOLESTEROL 36 11/28/2017 U nknown LIPID GROUP 05795 Chol/HDL Ratio 5.03 ratio 11/28/2017 U nknown LIPID GROUP 69829 NON-HDL Chol 145 mg/dL 11/28/2017 Unkn own [facility] GROUP 60059 LDL Cholesterol 106 mg/dL 11/28/2017 U nknown PT 1613036 PT 22.2 Seconds 11/28/2017 Unknow n PT 2818294 INR 2.0 11/28/2017 Unknown COMPREHENSIVE METABOLIC 41306 AST 19 U/L 2017 Unknown COMPREHENSIVE METABOLIC 78323 ALT 16 U/L 2017 Unknown COMPREHENSIVE METABOLIC 95257 BUN 22 mg/dL 2017 Unknown COMPREHENSIVE METABOLIC 48696 ALBUMIN 4.1 g/dL 2017 Unknown COMPREHENSIVE METABOLIC 83791 CHLORIDE 108 mmol/L 11/28 Unknown COMPREHENSIVE METABOLIC 59958 Bili Total 0.5 mg/dL 11/28 Unknown COMPREHENSIVE METABOLIC 01174 ALK PHOS 53 U/L 2017 Unknown COMPREHENSIVE METABOLIC 65699 SODIUM 141 mmol/L 11/28 Unknown COMPREHENSIVE METABOLIC 19578 CREATININE 0.83 mg/dL 11/05 Unknown COMPREHENSIVE METABOLIC 08715 CALCIUM 9.1 mg/dL 2017 Unknown COMPREHENSIVE METABOLIC 79485 POTASSIUM 4.6 mmol/L 11/28 Unknown COMPREHENSIVE METABOLIC 59567 Total Protein 6.5 g/dL Unknown COMPREHENSIVE METABOLIC 84124 Glucose 106 mg/dL 2017 Unknown COMPREHENSIVE METABOLIC 30130 Bicarbonate 26 mmol/L 11/05 Unknown COMPREHENSIVE METABOLIC 64540 AGAP 7 mmol/L 2017 Unknown COMPLETE BLOOD COUNT 5149924 WBC 5.1 10e9/L 11/28/19 18 Unknown COMPLETE BLOOD COUNT 5309409 RBC 4.22 10e12/L 2017 Unknown COMPLETE BLOOD COUNT 3054558 HEMOGLOBIN 13.5 g/dL 11/28/19 18 Unknown COMPLETE BLOOD COUNT [id number] HEMATOCRIT 39.1 % 11/28/19 18 Unknown COMPLETE BLOOD COUNT 8278779 MCV 92.7 fL 8 Unknown COMPLETE BLOOD COUNT 5639153 MCH 32.0 pg 8 Unknown COMPLETE BLOOD COUNT 8254203 MCHC 34.5 g/dL 8 Unknown COMPLETE BLOOD COUNT 7346498 PLATELET COUNT 226 10e9/L Unknown COMPLETE BLOOD COUNT 4922748 Mean Plt Volume 9.6 fL Unknown COMPLETE BLOOD COUNT 4362872 Neut Auto 49.5 % 8 Unknown COMPLETE BLOOD COUNT 1656159 Lymph Auto 35.3 % 11/28/19 18 Unknown COMPLETE BLOOD COUNT 8756851 Coffee Auto 12.4 % 8 Unknown COMPLETE BLOOD COUNT 6724676 RDW 12.4 % 8 Unknown COMPLETE BLOOD COUNT 8599496 Eos Auto 2.2 % 8 Unknown COMPLETE BLOOD COUNT 2637871 Baso Auto 0.6 % 8 Unknown COMPLETE BLOOD COUNT 9024730 Neutrophil Abs 2.52 10e9/L Unknown COMPLETE BLOOD COUNT 5849557 Lymphocyte Abs 1.80 10e9/L Unknown COMPLETE BLOOD COUNT [id number] Monocyte Abs 0.63 10e9/L 11/05 Unknown COMPLETE BLOOD COUNT 8666813 Eosinophil Abs 0.11 10e9/L Unknown COMPLETE BLOOD COUNT 7407735 RDW-SD 41.2 fL 8 Unknown COMPLETE BLOOD COUNT [id number] Basophil Abs 0.03 10e9/L 11/05 Unknown Procedures Procedure Codes Date FLU VACC PRSV FREE INC ANTIG 65 AND OLDER CPT-4: 36075 08/18/2021 FLU VACC PRSV FREE INC ANTIG 65 AND OLDER CPT-4: 48068 08/18/2021 ADMIN INFLUENZA VIRUS VAC CPT-4: G0008 08/18/2021 ROUTINE VENIPUNCTURE CPT-4: 96476 07/05/2021 PROTHROMBIN TIME CPT-4: 28311 07/05/2021 PPPS, subseq visit CPT-4: G0439 10/12/2020 ROUTINE VENIPUNCTURE CPT-4: 37985 04/06/2020 COMPREHEN METABOLIC PANEL CPT-4: 10253 04/06/2020 COMPLETE CBC W/AUTO DIFF WBC CPT-4: 68484 04/06/2020 PROTHROMBIN TIME CPT-4: 68770 04/06/2020 PPPS, subseq visit CPT-4: G0439 09/02/2019 ROUTINE VENIPUNCTURE CPT-4: 48039 09/02/2019 PROTHROMBIN TIME CPT-4: 58282 09/02/2019 FLU VACC PRSV FREE INC ANTIG 65 AND OLDER CPT-4: 91665 08/20/2018 PNEUMOCOCCAL VACC 23 BRIDGET IM CPT-4: 22543 08/20/2018 ADMIN INFLUENZA VIRUS VAC CPT-4: G0008 08/20/2018 ADMIN PNEUMOCOCCAL VACCINE CPT-4: G0009 08/20/2018 PPPS, subseq visit CPT-4: G0439 11/27/2017 FLU VACC PRSV FREE INC ANTIG 65 AND OLDER CPT-4: 01518 08/14/2017 PNEUMOCOCCAL VACC 13 BRIDGET IM CPT-4: 07115 08/14/2017 ADMIN INFLUENZA VIRUS VAC CPT-4: G0008 08/14/2017 ADMIN PNEUMOCOCCAL VACCINE CPT-4: G0009 08/14/2017 FLU VACC PRSV FREE INC ANTIG 65 AND OLDER CPT-4: 30838 10/03/2016 ADMIN INFLUENZA VIRUS VAC CPT-4: G0008 10/03/2016 PPPS, subseq visit CPT-4: G0439 10/10/2015 FLUZONE, 5ML (Medicare) CPT-4: Q2038 09/01/2014 ADMIN INFLUENZA VIRUS VAC CPT-4: G0008 09/01/2014 Vital Signs Date Vital 07/05/2021 Blood Pressure 1: 122/80 Code: 8480-6 Heart Rate 1: 92 bpm Respiratory Rate: 20 bpm SpO2: 96% Temperature: 36.8 (C) / 98.2 (F) We ight: 207 lbs Code: 22688-7 04/26/2021 Blood Pressure 1: 126/82 Code: 8480-6 Heart Rate 1: 104 bpm Respiratory Rate: 20 bpm SpO2: 96% Temperature: 36.7 (C) / 98.1 (F) We ight: 212 lbs Code: 36429-6 10/12/2020 Blood Pressure 1: 104/68 Code: 8480-6 BMI: 31.6 Code: 75856-8 Heart Rate 1: 96 bpm Height: 5'7" Code: 8302-2 Respiratory Rate: 20 bpm SpO2: 95% Temperature: 36.9 (C) / 98.5 (F) Weight: 202 lbs Code: 56095-3 07/13/2020 Blood Pressure 1: 128/72 Code: 8480-6 Heart Rate 1: 76 bpm Respiratory Rate: 18 bpm SpO2: 97% Temperature: 36.3 (C) / 97.3 (F) We ight: 190 lbs Code: 59265-6 04/06/2020 Blood Pressure 1: 106/68 Code: 8480-6 BMI: 29.1 Code: 14933-6 Heart Rate 1: 96 bpm Height: 5'7" Code: 8302-2 Respiratory Rate: 20 bpm SpO2: 96% Temperature: 36.8 (C) / 98.2 (F) Weight: 186 lbs Code: 70256-0 09/02/2019 Blood Pressure 1: 94/50 Code: 8480-6 BMI: 29.8 C ode: 10106-3 Heart Rate 1: 68 bpm Height: 5'7" Code: 8302-2 Respiratory Rate: 20 bpm SpO2: 96% Temperature: 36.6 (C) / 97.9 (F) Weight: 190 lbs Code: 76352-8 07/01/2019 Blood Pressure 1: 112/60 Code: 8480-6 Heart Rate 1: 88 bpm Respiratory Rate: 20 bpm SpO2: 94% Temperature: 36.8 (C) / 98.2 (F) We ight: 201 lbs Code: 14744-0 05/27/2019 Blood Pressure 1: 104/50 Code: 8480-6 Heart Rate 1: 62 bpm SpO2: 95% Temperature: 36.3 (C) / 97.4 (F) Weight: 204 lbs Code: 49864-7 04/22/2019 Blood Pressure 1: 112/72 Code: 8480-6 Heart Rate 1: 64 bpm Respiratory Rate: 20 bpm SpO2: 95% Temperature: 36.8 (C) / 98.2 (F) We ight: 207 lbs Code: 75962-7 02/09/2019 Blood Pressure 1: 104/60 Code: 8480-6 Heart Rate 1: 72 bpm Respiratory Rate: 20 bpm SpO2: 95% Temperature: 37.1 (C) / 98.8 (F) We ight: 216 lbs Code: 56166-9 01/07/2019 Blood Pressure 1: 122/74 Code: 8480-6 Heart Rate 1: 96 bpm Respiratory Rate: 20 bpm SpO2: 96% Temperature: 36.7 (C) / 98.1 (F) We ight: 219 lbs Code: 19436-7 07/09/2018 Blood Pressure 1: 118/65 Code: 8480-6 Heart Rate 1: 62 bpm SpO2: 94% Temperature: 36.2 (C) / 97.1 (F) Weight: 237 lbs Code: 55754-4 11/27/2017 Blood Pressure 1: 124/70 Code: 8480-6 BMI: 35.2 Code: 16193-6 Heart Rate 1: 64 bpm Height: 5'8" Code: 8302-2 Respiratory Rate: 20 bpm SpO2: 94% Temperature: 36.9 (C) / 98.5 (F) Weight: 235 lbs Code: 92276-2 10/10/2015 Blood Pressure 1: 126/78 Code: 8480-6 BMI: 36.0 Code: 79552-7 Heart Rate 1: 72 bpm Height: 5'8" Code: 8302-2 Respiratory Rate: 20 bpm Temperatu re: 36.9 (C) / 98.4 (F) Weight: 240 lbs Code: 10804-2 09/01/2014 Blood Pressure 1: 114/70 Code: 8480-6 BMI: 35.4 Code: 40150-9 Heart Rate 1: 76 bpm Height: 5'8" Code: 8302-2 Respiratory Rate: 20 bpm Temperatu re: 36.7 (C) / 98.1 (F) Weight: 236 lbs Code: 90208-3 07/02/2013 Blood Pressure 1: 124/90 Code: 8480-6 BMI: 33.7 Code: 09464-4 Heart Rate 1: 76 bpm Height: 5'8" Code: 8302-2 Respiratory Rate: 20 bpm Temperatu re: 36.6 (C) / 97.8 (F) Weight: 225 lbs Code: 26500-2 06/25/2012 Blood Pressure 1: 144/100 Code: 8480-6 BMI: 34.5 Code: 64963-2 Heart Rate 1: 76 bpm Height: 5'8" Code: 8302-2 Respiratory Rate: 20 bpm Temperatu re: 36.6 (C) / 97.9 (F) Weight: 230 lbs Code: 16933-5 05/15/2012 Blood Pressure 1: 112/70 Code: 8480-6 BMI: 34.6 Code: 78151-3 Heart Rate 1: 76 bpm Height: 5'8" Code: 8302-2 Respiratory Rate: 20 bpm Temperatu re: 37.0 (C) / 98.6 (F) Weight: 231 lbs Code: 65944-3 12/06/2011 Blood Pressure 1: 142/90 Code: 8480-6 BMI: 35.4 Code: 24796-0 Heart Rate 1: 72 bpm Height: 5'8" Code: 8302-2 Respiratory Rate: 20 bpm Temperatu re: 36.9 (C) / 98.4 (F) Weight: 236 lbs Code: 05687-6 10/30/2010 Blood Pressure 1: 114/78 Code: 8480-6 Heart Rate 1: 76 bpm Temperature: 36.3 (C) / 97.4 (F) Weight: 228 lbs Code: 55432-1 Functional Status No Functional Status data Reason [...] Z23] [facility] CPT-4: 25433 08/18/2021 ([id number]) OFFICE/OUTPATIENT VISIT EST Diagnosis: Parkinson disease[ICD10: G20] 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] Roxie LOPEZ DO [facility] CPT-4: 82235 07/05/2021 ([id number]) OFFICE/OUTPATIENT VISIT EST Diagnosis: Parkinson disease[ICD10: G20] Diagnosis: Dementia[ICD10: F03.90] Roxie MOSQUERA DO [facility] CPT-4: 82215 04/26/2021 ([id number]) OFFICE/OUTPATIENT VISIT EST Diagnosis: 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] Diagnosis: 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: G30.9] Roxie LOPEZ DO [facility] CPT-4: 11983 07/13/2020 ([id number]) OFFICE/OUTPATIENT VISIT EST Diagnosis: Alzheimer's disease, unspecified[ICD10: G30.9] Roxie LOPEZ DO [facility] CPT-4: 42935 04/06/2020 ([id number]) OFFICE/OUTPATIENT VISIT EST Diagnosis: Alzheimer's disease with late onset[ICD10: G30.1] Diagnosis: Generalized anxiety disorder[ICD10: F41.1] Diagnosis: Unspecified dementia with behavioral disturbance[ICD10: F03.91] Roxie LOPEZ DO [facility] CPT-4: 66930 07/01/2019 ([id number]) OFFICE/OUTPATIENT VISIT EST Diagnosis: Alzheimer's disease with late onset[ICD10: G30.1] Diagnosis: Abnormal weight loss[ICD10: R63.4] Diagnosis: Essential (primary) hypertension[ICD10: I10] Diagnosis: Melena[ICD10: K92.1] Diagnosis: Unspecified dementia with behavioral disturbance[ICD10: F03.91] Diagnosis: Spontaneous ecchymoses[ICD10: R23.3] Roxie LOPEZ [place] [facility] CPT-4: 16298 05/27/2019 ([id number]) OFFICE/OUTPATIENT VISIT EST Diagnosis: 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] Diagnosis: Alzheimer's disease with late onset[ICD10: G30.1] Diagnosis: Melena[ICD10: K92.1] Diagnosis: Abnormal weight loss[ICD10: R63.4] Roxie LOPEZ [facility] CPT-4: 85009 04/22/2019 ([id number]) OFFICE/OUTPATIENT VISIT EST Diagnosis: 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] Diagnosis: Slow transit constipation[ICD10: K59.01] Diagnosis: Unspecified dementia with behavioral disturbance[ICD10: F03.91] Roxie LOPEZ [facility] CPT-4: 19874 02/09/2019 ([id number]) OFFICE/OUTPATIENT VISIT EST Diagnosis: Alzheimer's disease with late onset[ICD10: G30.1] Diagnosis: 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] Diagnosis: Nocturia[ICD10: R35.1] Diagnosis: Constipation, unspecified[ICD10: K59.00] Roxie LOPEZ [facility] CPT-4: 10291 01/07/2019 ([id number]) NURSE/OUTPATIENT VISIT EST Diagnosis: FLU VACCINE[ICD10: Z23] Diagnosis: PNEUMOCOCCAL VACCINE[ICD10: Z23] Roxie LOPEZ [facility] CPT-4: 72616 08/20/2018 ([id number]) OFFICE/OUTPATIENT VISIT EST Diagnosis: Mixed hyperlipidemia[ICD10: E78.2] Diagnosis: Essential (primary) hypertension[ICD10: I10] Diagnosis: Alzheimer's disease, unspecified[ICD10: G30.9] Roxie LOPEZ [facility] CPT-4: 70571 07/09/2018 ([id number]) OFFICE/OUTPATIENT VISIT EST Diagnosis: PNEUMOCOCCAL VACCINE[ICD10: Z23] Diagnosis: FLU VACCINE[ICD10: Z23] Roxie BRYSON [facility] CPT-4: 22863 08/14/2017 ([id number]) OFFICE/OUTPATIENT VISIT EST Diagnosis: FLU VACCINE[ICD10: Z23] Roxie BRYSON [facility] CPT-4: 93079 10/03/2016 ([id number]) OFFICE/OUTPATIENT VISIT EST Diagnosis: HYPERTENSION[ICD9: 401.9] Diagnosis: HYPERLIPIDEMIA NEC/NOS[ICD9: 272.4] Diagnosis: MEMORY LOSS[ICD9: 780.93] Diagnosis: - I - ANXIETY STATE NOS[ICD9: 300.00] Diagnosis: FLU VACCINE[ICD10: Z23] Roxie FAUSTIN RmDiane BRAYDON ER [facility] CPT-4: 48601 09/01/2014 OFFICE/OUTPATIENT VISIT EST Diagnosis: HYPERTENSION[ICD9: 401.9] Diagnosis: CAD[ICD9: 414.00] Diagnosis: HYPERLIPIDEMIA NEC/NOS[ICD9: 272.4] Diagnosis: MEMORY LOSS[ICD9: 780.93] Diagnosis: ANXIETY STATE NOS[ICD9: 300.00] Diagnosis: Testicular pain[ICD9: 608.9] Roxie FAUSTIN RmDiane JULIO [facility] CPT-4: 70086 07/02/2013 ([id number]) OFFICE/OUTPATIENT VISIT EST Diagnosis: MEMORY LOSS[ICD9: 780.93] Roxie FAUSTIN RmDiane DONNA SIMMONS [facility] CPT-4: 00801 06/25/2012 ([id number]) OFFICE/OUTPATIENT VISIT EST Diagnosis: HYPERLIPIDEMIA NEC/NOS[ICD9: 272.4] Diagnosis: HYPERTENSION[ICD9: 401.9] Diagnosis: CAD[ICD9: 414.00] Diagnosis: MEMORY LOSS[ICD9: 780.93] Roxie FAUSTIN RmDiane DONNA SIMMONS [facility] CPT-4: 42695 05/15/2012 PER PM REEVAL EST PAT 65+ YR Diagnosis: ROUTINE MEDICAL EXAM[ICD9: V70.0] Diagnosis: HYPERLIPIDEMIA NEC/NOS[ICD9: 272.4] Diagnosis: HYPERTENSION[ICD9: 401.9] Diagnosis: CAD[ICD9: 414.00] Diagnosis: Seborrheic dermatitis[ICD9: 690.10] Roxie PERRY RmDiane JULIO [place] [facility] CPT-4: 58832 12/06/2011 ([id number]) OFFICE/OUTPATIENT VISIT, EST Roxie GENTILE RmDiane JULIO [place] [facility] CPT-4: 25508 10/30/2010 Plan of Care Planned Activity Notes Codes Status Date Visit Diagnosis Plan: Parkinson disease Discussion: In crease sinemet 25/100mg 2po BID Call in 1month ICD-9 : 332.0 ICD-10 : G20 07/05/2021 Visit Diagnosis Plan: assisted (current) use of antic oagulants Discussion: PT/INR drawn ICD-9 : V58.61 ICD-10 : Z79.01 07/05/2021 Appointment: Roxie Lopeztel: [address] [place] [address] [place] FOLLOW UP 07/05/2021 Visit Diagnosis Plan: Parkinson disease Discussion: Tr ial of sinemet 25/100mg po BID Fwup 2mos ICD-9 : 332.0 ICD-10 : G20 04/26/2021 Appointment: Roxie Lopez WPtel: [address] [place], [place] [phone] [place] FOLLOW UP 04/26/2021 Appointment: Roxie Lopeztel: [address] [place] [address] [place] CANCELED 01/11/2021 Visit Diagnosis Plan: Encounter for [facility] adult medical examination without abnormal [...] ICD-10 : G30.1 10/12/2020 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 Discussion: Update PT/INR ICD-9 : V58.61 ICD-10 : Z79.01 10/12/2020 Appointment: Roxie Lopeztel: [address] [place], [place] [phone] [place] Annual Well Visit 10/12/2020 Visit Diagnosis [...] F02.81 07/13/2020 Appointment: Roxie Lopez WPtel: [address] [place], [place] [phone] [place] FOLLOW UP 07/13/2020 Care Plan: PT Pending 06/27/2020 Visit Diagnosis Plan: Alzheimer's disease, unspecified Discussion: Worsening has started OTC supplements Inquiring about meals on wheels Follow Up: 3 months ICD-9 : 331.0 ICD-10 : G30.9 04/06/2020 Appointment: Roxie Lopez WPtel: Formerly named [facility] [place] FOLLOW UP 04/06/2020 Care Plan: Referral Order SNOMED-CT : [id number] Pending 04/06/2020 Appointment: Roxie Lopez WPtel: [address] [place], [place] [phone] [place] RESCHEDULED 02/24/2020 Care Plan: COMPREH[place] METAB[place] : 72161-7 Pending 12/14/2019 Care Plan: LIPID PANEL LOINC : 37577-1 Pending 12/14/2019 Care Plan: PT Pending 12/14/2019 [...] 09/02/2019 Visit Diagnosis Plan: Encounter for [facility] adult medical examination without abnormal findings Discussion: Mediterranean diet Combinati on of cardio and weight bearing exercise DC pravastatin ICD-9 : V70.0 ICD-10 : Z00.00 09/02/2019 Visit Diagnosis Plan: Encounter for therapeutic drug l evel monitoring Discussion: Check PT/INR ICD-9 : V58.61 ICD-10 : Z51.81 09/02/2019 Appointment: Roxie Lopez WPtel: [address] [place] [address] [place] originally 2 mo follow up Annual Well Visit 08/06 Visit Diagnosis Plan: Generalized anxiety disorder Dis cussion: Depakote already helping Follow Up: 2 months ICD-9 : 300.00 ICD-10 : F41.1 07/01/2019 Appointment: Roxie Lopez WPtel: [address] [place] [address] [place] FOLLOW UP 07/01/2019 Visit Diagnosis Plan: [...] : K92.1 05/27/2019 Appointment: Roxie Lopez WPtel: [address] [place] [address] US FOLLOW UP 05/27/2019 Visit Diagnosis Plan: [...] : F51.04 04/22/2019 Appointment: Roxie Lopez WPtel: [address] [place], [place] [phone] FOLLOW UP 04/22/2019 Visit Diagnosis Plan: Unspecified [...] : K59.01 02/09/2019 Appointment: Roxie Lopez WPtel: [address] [place], [place] [phone] FOLLOW UP 02/09/2019 Patient Education: escitalopram oxalate- [employer] [id number] Completed 02/09/2019 Patient Education: doxepin- [employer] [id number] Completed 02/09/2019 Visit Diagnosis Plan: Nocturia Discussion: [...] : F51.04 01/07/2019 Appointment: Roxie Lopez WPtel: [address] [place], [place] [phone] FOLLOW UP 01/07/2019 Patient Education: tamsulosin- [employer] [facility] [id number] Completed 01/07/2019 Patient Education: doxepin- [employer] [id number] Completed 01/07/2019 Care Plan: COMPREHEN METABOLIC PANEL [place] : 13400-7 Pending 12/17/2018 Care Plan: CBC Pending 12/17/2018 Care Plan: LIPID PANEL LOINC : 82007-9 Pending 12/17/2018 Appointment: Roxie Lopez WPtel: [address] [place] [address] [place] INJECTION 08/20/2018 Patient Education: Patient Medication [...] : I10 07/09/2018 Appointment: Roxie Lopez WPtel: [address] [place] [address] FOLLOW UP 07/09/2018 Patient Education: Patient Medication Summary Completed 07/09/2018 Visit Diagnosis Plan: Generalized anxiety disorder Dis cussion: Add lexapro 10mg q HS ICD-9 : 300.00 ICD-10 : F41.1 11/27/2017 Visit Diagnosis Plan: Alzheimer's disease, unspecified Discussion: Change Namenda XR to Namenda 10mg po BI Follow Up: 3 months ICD-9 : 331.0 ICD-10 : G30.9 11/27/2017 Visit Diagnosis Plan: Encounter for [facility] adult medical examination without abnormal findings Discussion: Update fasting lab ICD-9 : V70.0 ICD-10 : Z00.00 11/27/2017 Appointment: Roxie Lopez WPtel: [address] [place], [place] [address] Annual Well Visit 11/27/2017 Patient Education: Patient Medication Summary Completed 11/27/2017 Patient Education: Patient Medication Summary Completed 11/14/2017 Care Plan: CBC Pending 11/14/2017 Care Plan: PT Pending 11/14/2017 Care Plan: COMPREH[place] METABOLIC PANEL [place] : 71850-9 Pending 11/14/2017 Care Plan: LIPID PANEL LOINC : 76500-6 Pending 11/14/2017 Care Plan: ASSAY THYROID STIM HORMONE [place] 11/14/2017 Appointment: Roxie Lopez WPtel: [address] [place], [place] [phone] [place] INJECTION 08/14/2017 Patient Education: Patient Medication Summary Completed 08/14/2017 Appointment: Roxie Lopez WPtel: [address] [place], [place] [phone] [place] INJECTION 10/03/2016 Patient Education: Patient Medication Summary Completed 10/03/2016 Patient Education: Patient Medication Summary Completed 01/02/2016 Care Plan: CBC Ordered 01/02/2016 Visit Plan: Check fasting lab with next PT/INR Continue current meds Discussed trial of PPI but states gaviscon works if will take so will just try it 10/10/2015 Appointment: Roxie Lopez WPtel: [address] [place], [place] [phone] 10/07/15 appt confirmed cn Annual Well Visit 05/2015 Patient Education: Patient Medication Summary Completed 10/10/2015 Appointment: Roxie Lopez WPtel: [address] [place], [place] [phone] 08/31 no answer cell # 08/31 vm 2nd # FOLLOW UP 09/01/2014 Patient Education: Patient Medication Summary Completed 09/01/2014 Patient Education: Patient Medication Summary Completed 08/23/2014 Visit Plan: Lab discussed Check testicul ar US Change namenda to Namenda XR 23mg QD Check PSA 07/02/2013 Appointment: Roxie Lopez WPtel: [address] [place] [address] ACUTE ILLNESS 07/02/2013 Patient Education: Patient Medication Summary Completed 07/02/2013 Visit Plan: Continue namenda 10mg po BID Discussed aricept 06/25/2012 Appointment: Roxie Lopez WPtel: [address] [place] [address] confirmed w ACUTE ILLNESS 06/25/2012 Patient Education: Patient Medication Summary Completed 06/25/2012 Appointment: Roxie Lopez WPtel: [address] [place] [address] FOLLOW UP 05/15/2012 Patient Education: Patient Medication Summary Completed 05/15/2012 Visit Plan: Continue current meds Lab di scussed Long discussion about meds, diet, exercise and weight loss for decreasing TG and elevating HDL Add Nystatin/TAC cream to use prn 12/06/2011 Appointment: Roxie Lopez WPtel: [address] [place] [address] CHECK UP 12/06/2011 Patient Education: Patient Medication Summary Completed 12/06/2011 Visit Plan: Check fasting lab--CMP, lipi ds, PSA, PT/INR Loan deferment paperwork filled out 10/30/2010 Appointment: Roxie Lopez WPtel: [address] [place] [address] ESTABLISHED PATIENT 10/30/2010 Patient Education: Patient Medication Summary Completed 10/30/2010 Referral: Angeline Arellano WPtel: [address] [place] [address] Referral Appointment Requested Instructions Comment . Check [...]
--- OUTSIDE RECORDS SUMMARY | 2021-10-12 10:17 | XMS REPORT | CCD ---
Author Author Ronnie Lopez D.O. Organization [facility] Address [address] [place] [address] Phone Care Team Providers Care Director Volunteer Services Name Role Phone Roxie Lopez D.O., PP Unavailable CCM Unavailable Summary Purpose Interface Exchange Insurance Providers Payer name Policy type / Coverage type Covered libertarian ID Effective Begin Date Effective End Date [employer] Medicare [id number] Unknown Family History Family History data not found Social History Social History Element Codes Description Effective Dates Marital status Unknown 12/06/[address]: 0621472 Former smoker 2000 12/06/2011 Allergies, Adverse Reactions, Alerts Substance Reaction Codes Entered Date Inactivated Date Status * NO KNOWN FOOD ALLERGIES Unknown 10/30/2010 No Inactiv e Date Active PENICILLINS Unknown 10/30/2010 No Inactive Date Active * NO KNOWN ENVIRONMENTAL ALLERGIES Unknown 10/30/2010 N o Inactive Date Active Problems Condition Codes Effective Dates Condition Status FLU VACCINE ICD-10: Z23 ICD-9: V04.81 10/02/2016 Active intermediate (current) use of anticoagulants ICD-10: Z79. 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-10: [...] Fill Instructions memantine 10 mg tablet RxNorm: 602003 TAKE 1 TABLET TWI CE DAILY (REPLACES NAMENDA XR) 06/26/2021 09/23/2021 Active escitalopram 20 mg tablet RxNorm: 551130 TAKE 1 TABLET AT BEDTIME 0 06/26/2021 09/23/2021 Active warfarin 2 mg tablet RxNorm: 822896 TAKE 1 AND 1/2 TABL ETS ON SATURDAY, SATURDAY, SATURDAY, SATURDAY AND TAKE 2 TABLETS ON SATURDAY, SATURDAY AND Saturday06/26/2021 09/23/2021 Active tamsulosin 0.4 mg capsule RxNorm: 893193 TAKE 1 CAPSULE EVERY DAY 0 06/26/2021 09/23/2021 Active carbidopa 25 mg-levodopa 100 mg tablet RxNorm: 880440 T PHAM 1 TABLET TWICE DAILY FOR TREMORS 06/26/2021 07/04/2021 Inactive Sinemet 25 mg-100 mg tablet RxNorm: 057216 Take 1 Table t(s) Oral two times a day for tremors 04/26/2021 04/26/2021 Inactive memantine 10 mg tablet RxNorm: 345432 TAKE 1 TABLET TWI CE DAILY (REPLACES NAMENDA XR) 04/12/2021 04/12/2021 Inactive warfarin 2 mg tablet RxNorm: 321216 2 Tablet(s) Oral Mo through Saturday and 1.5 tablets on Saturday/Saturday01/19/2021 No Stop Date Active tamsulosin 0.4 mg capsule RxNorm: 406785 TAKE 1 CAPSULE EVERY DAY 0 12/19/2020 12/19/2020 Inactive warfarin 2 mg tablet RxNorm: 494666 TAKE 1 AND 1/2 TABL ETS ON SATURDAY, SATURDAY, SATURDAY, SATURDAY AND TAKE 2 TABLETS ON SATURDAY, SATURDAY AND Saturday12/12/2020 01/18/2021 Inactive escitalopram 20 mg tablet RxNorm: 109616 TAKE 1 TABLET AT BEDTIME 0 11/28/2020 11/28/2020 Inactive Namenda 10 mg tablet RxNorm: 752268 TAKE 1 TABLET TWICE DAILY (REPLACES NAMENDA XR) 10/17/2020 10/17/2020 Inactive melatonin 10 mg capsule RxNorm: 454850 1 Capsule(s) Oral QD 020 No Stop Date Active tamsulosin 0.4 mg capsule RxNorm: 192808 TAKE 1 CAPSULE EVERY DAY 1 12/18/2020 Inactive warfarin 2 mg tablet RxNorm: 100115 TAKE 1 AND 1/2 TABL ETS ON SATURDAY, SATURDAY, SATURDAY, SATURDAY AND TAKE 2 TABLETS ON SATURDAY, SATURDAY AND Saturday07/12/2020 12/11/2020 Inactive warfarin 2 mg tablet RxNorm: 997240 TAKE 1 AND 1/2 TABL ETS ON SATURDAY, SATURDAY, SATURDAY, SATURDAY AND TAKE 2 TABLETS ON SATURDAY, SATURDAY AND Saturday06/27/2020 07/11/2020 Inactive Namenda 10 mg tablet RxNorm: 497284 TAKE 1 TABLET TWICE DAILY (REPLACES NAMENDA XR) 04/18/2020 10/16/2020 Inactive tamsulosin 0.4 mg capsule RxNorm: 536152 1 Capsule(s) Oral QD 02/1108/10/2020 Inactive Depakote ER 250 mg tablet,extended release RxNorm: 9758473 1 Tab let(s) Oral QPM 01/21/2020 04/20/2020 Inactive warfarin 2 mg tablet RxNorm: 712498 TAKE 1 AND 1/2 TABL ETS ON SATURDAY, SATURDAY, SATURDAY AND SATURDAY AND TAKE 2 TABLETS ON SATURDAY, SATURDAY AND Saturday12/14/2019 06/26/2020 Inactive escitalopram 20 mg tablet RxNorm: 059467 TAKE 1 TABLET AT BEDTIME 0 11/16/2019 11/27/2020 Inactive Namenda 10 mg tablet RxNorm: 884048 TAKE 1 TABLET TWICE DAILY (REPLACES NAMENDA XR) 10/08/2019 04/17/2020 Inactive tamsulosin 0.4 mg capsule RxNorm: 497965 1 Capsule(s) Oral QD 09/0202/11/2020 Inactive warfarin 2 mg tablet RxNorm: 421545 1.5 Tablet(s) PO on , , Sat, and Sun and 2 tablets on Sat, Sat, Sat07/13/2019 07/12/2019 Inactive Depakote ER 250 mg tablet,extended release RxNorm: 5117259 1 Tab let(s) PO BID 06/08/2019 09/05/2019 Inactive pravastatin 80 mg tablet RxNorm: 858224 TAKE 1 TABLET EVERY DAY 11/201809/01/2019 Inactive warfarin 2 mg tablet RxNorm: 919533 TAKE 1 AND 1/2 TABS ON SATURDAY,SATURDAY AND SATURDAY AND TAKE 2 TABS ON , , SAT AND SUN (NEED MD APPOINTMENT) 03/09/2019 07/13/2019 Inactive Namenda 10 mg tablet RxNorm: 402284 TAKE 1 TABLET TWICE DAILY (REPLACES NAMENDA XR) 02/09/2019 08/07/2019 Inactive doxepin 25 mg capsule RxNorm: 0021741 1 Capsule(s) PO QH S for sleep replaces 10mg dose 02/09/2019 04/21/2019 Inactive escitalopram 20 mg tablet RxNorm: 813586 1 Tablet(s) PO QHS 019 08/07/2019 Inactive tamsulosin 0.4 mg capsule RxNorm: 109898 1 Capsule(s) P O QPM for urinary frequency 01/07/2019 02/12/2020 Inactive divalproex 250 mg tablet,delayed release RxNorm: 5520954 1 Table t(s) PO QHS 01/07/2019 01/07/2019 Inactive doxepin 10 mg capsule RxNorm: 4648472 1-2 Capsule(s) PO QHS as n eeded for sleep 01/07/2019 02/08/2019 Inactive warfarin 2 mg tablet RxNorm: 888428 1 1/2 Tablet(s) PO MWF and 2 tablets on T Th Sat and Sun 12/29/2018 03/08/2019 Inactive metoprolol tartrate 50 mg tablet RxNorm: 207460 TAKE 1 TABLET T WICE DAILY 12/01/2018 06/30/2019 Inactive Namenda 10 mg tablet RxNorm: 913110 TAKE 1 TABLET TWICE DAILY (REPLACES NAMENDA XR) 09/22/2018 02/08/2019 Inactive warfarin 2 mg tablet RxNorm: 702507 1 1/2 Tablet(s) PO MWF and 2 tablets on T Th Sat and Sun 09/02/2018 09/01/2018 Inactive escitalopram 10 mg tablet RxNorm: 640155 1 Tablet(s) PO QHS 018 02/08/2019 Inactive pravastatin 80 mg tablet RxNorm: 021466 1 Tablet(s) PO QD 01/28/2018 10/24/2018 Inactive Namenda 10 mg tablet RxNorm: 384671 1 Tablet(s) PO BID 11/27/2017 Inactive escitalopram 10 mg tablet RxNorm: 223951 1 Tablet(s) PO QHS 018 06/09/2018 Inactive Namenda XR 28 mg capsule sprinkle,extended release RxNorm: 9 89876 TAKE ONE CAPSULE BY MOUTH ONCE DAILY 10/10/2017 11/26/2017 Inactive metoprolol tartrate 50 mg tablet RxNorm: 793529 Tablet( s) TAKE 1 TABLET TWICE DAILY 10/03/2017 09/27/2018 Inactive warfarin 2 mg tablet RxNorm: 847520 Tablet(s) TAKE 2 TA BLETS SATURDAY THROUGH SATURDAY AND 1 TABLET SATURDAY AND Saturday05/09/2017 09/02/2018 Inactive divalproex 250 mg tablet,delayed release RxNorm: 6435633 TAKE 1 TABLET TWICE DAILY 02/19/2017 01/06/2019 Inactive Namenda XR 28 mg capsule sprinkle,extended release RxNorm: 9 24535 TAKE 1 CAPSULE EVERY DAY 02/11/2017 10/09/2017 Inactive pravastatin 80 mg tablet RxNorm: 482680 1 Tablet(s) PO QD 01/21/2017 01/28/2018 Inactive Namenda XR 28 mg capsule sprinkle,extended release RxNorm: 9 07766 TAKE ONE CAPSULE BY MOUTH ONCE DAILY 09/24/2016 02/10/2017 Inactive metoprolol tartrate 50 mg tablet RxNorm: 992022 TAKE 1 TABLET T WICE DAILY 09/10/2016 10/03/2017 Inactive warfarin 2 mg tablet RxNorm: 764535 TAKE 2 TABLETS THROUGH SATURDAY AND 1 TABLET SATURDAY AND Saturday2016 05/09/2017 Inactive divalproex 250 mg tablet,delayed release RxNorm: 3853264 1 Table t(s) PO QHS 12/19/2015 12/12/2016 Inactive pravastatin 80 mg tablet RxNorm: 156416 1 Tablet(s) PO QD 12/19/2015 01/21/2017 Inactive Namenda XR 28 mg capsule sprinkle,extended release RxNorm: 9 30309 1 Capsule(s) PO QD 11/11/2015 09/23/2016 Inactive divalproex 250 mg tablet,delayed release RxNorm: 9962880 1 Table t(s) PO QHS 10/10/2015 12/19/2015 Inactive Namenda XR 28 mg capsule sprinkle,extended release RxNorm: 9 38026 1 Capsule(s) PO QD TAKE 1 CAPSULE EVERY DAY 11/09/2014 11/11/2015 Inactive Namenda XR 28 mg capsule sprinkle,ER 24hr RxNorm: 531355 1 PO QD TAKE ONE CAPSULE BY MOUTH ONCE DAILY 10/07/2014 11/09/2014 Inactive Namenda XR 28 mg capsule sprinkle,ER 24hr RxNorm: 493090 1 Caps ule(s) PO QD 11/10/2013 10/07/2014 Inactive metoprolol tartrate 50 mg tablet RxNorm: 786473 1 Tablet(s) PO BID 05/14/2013 05/08/2014 Inactive 1BID (REPLACES TOPROL) - [place] E ONE TABLET BY MOUTH TWICE DAILY (REPLACES TOPROL) Ativan 1 mg tablet RxNorm: 945751 1 Tablet(s) PO BID 05/01/201310/09 Inactive as needed for anxiety pravastatin 40 mg tablet RxNorm: 723967 1 Tablet(s) PO QD due for labs in late summer03/26/2013 11/10/2014 Inactive warfarin 2 mg tablet RxNorm: 103658 1 Tablet(s) PO Take 2 tablets by mouth Saturday through Saturday and 1 tablet on Saturday and Saturday10/07/2012 Inactive pravastatin 40 mg tablet RxNorm: 299138 1 Tablet(s) PO QD 08/13/2012 03/26/2013 Inactive metoprolol tartrate 50 mg tablet RxNorm: 572377 1 Tablet(s) PO BID 08/13/2012 05/14/2013 Inactive 1BID (REPLACES TOPROL) - [place] E ONE TABLET BY MOUTH TWICE DAILY (REPLACES TOPROL) warfarin 2 mg tablet RxNorm: 699763 1 Tablet(s) PO QD 08/13/201202/2012 Inactive warfarin 2 mg tablet RxNorm: 550356 Tablet(s) PO 11/07/2011 08/13/2012 Inactive 2QD - TAKE TWO TABLETS BY MOUTH EVERY DAY SATURDAY THROUGH SATURDAY AND 1 TABLET ON SATURDAY AND SATURDAY pravastatin 40 mg tablet RxNorm: 383606 1 Tablet(s) PO QD 10/15/2011 08/13/2012 Inactive Ativan 1 mg tablet RxNorm: 104503 1 Tablet(s) PO BID 10/01/201109/30 Active as needed for anxiety metoprolol tartrate 50 mg tablet RxNorm: 909998 1 Tablet(s) PO BID 08/27/2011 08/13/2012 Inactive 1BID (REPLACES TOPROL) - [place] E ONE TABLET BY MOUTH TWICE DAILY (REPLACES TOPROL) pravastatin 40 mg Tab RxNorm: 771114 1 Tablet(s) PO QD 07/10/201109/2011 Inactive Ativan 1 mg Tab RxNorm: 246165 1 Tablet(s) PO BID 07/02/2011 1 Active as needed for anxiety metoprolol tartrate 50 mg Tab RxNorm: 530093 1 Tablet(s ) PO BID 1BID (REPLACES TOPROL) - TAKE ONE TABLET BY MOUTH TWICE DAILY (REPLACES TOPROL) 03/12/2011 08/26/2011 Inactive Ativan 1 mg Tab RxNorm: 025176 1 Tablet(s) PO BID as needed for anxiety 02/26/2011 02/25/2011 Active warfarin 2 mg Tab RxNorm: 588508 Tablet(s) PO 2QD - T PHAM TWO TABLETS BY MOUTH EVERY DAY SATURDAY THROUGH SATURDAY AND 1 TABLET ON SATURDAY AND Saturday12/18/2010 11/07/2011 Inactive Ativan 1 mg Tab RxNorm: 982263 1 Tablet(s) PO BID PRN for anxiety 0 11/06/2010 01/06/2019 Inactive metoprolol tartrate 50 mg Tab RxNorm: 803291 1 Tablet(s ) PO BID 1BID (REPLACES TOPROL) - TAKE ONE TABLET BY MOUTH TWICE DAILY (REPLACES TOPROL) 09/11/2010 03/12/2011 Inactive Ativan 1 mg Tab RxNorm: 800107 1 Tablet(s) PO BID PRN for anxiety 1 11/06/2010 Inactive warfarin 2 mg Tab RxNorm: 177072 Tablet(s) PO 2QD - T PHAM TWO TABLETS BY MOUTH EVERY DAY SATURDAY THROUGH SATURDAY AND 1 TABLET ON SATURDAY AND Saturday07/24/2010 10/29/2010 Inactive metoprolol tartrate 50 mg Tab RxNorm: 083470 1 Tablet(s) PO QD 01/201009/11/2010 Inactive pravastatin 40 mg Tab RxNorm: 240053 1 Tablet(s) PO QD 06/06/201004/2011 Inactive Warfarin 2 mg Tab RxNorm: 581682 2 Tablet(s) PO QD 2 tablets by mouth Saturday through Saturday, and one tablet by mouth on Saturday and Saturday. 06/06/2010 07/23/2010 Inactive Ativan 1 mg Tab RxNorm: 800249 1 Tablet(s) PO QHS PRN for anxiety 0 06/06/2010 08/27/2010 Inactive Pravastatin 40 mg Tab RxNorm: 979205 1 Tablet(s) PO QD 04/14/201012/2009 Inactive Ativan 1 mg Tab RxNorm: 017174 1 Tablet(s) PO BID PRN for anxiety 0 02/23/2010 06/02/2010 Inactive Probiotic oral RxNorm: 6205 oral 04/07/2020 Active [place] 3 Natural Fish Oil Conc capsule RxNorm: 1 Capsule(s) PO QD 0 11/27/2017 Active turmeric-turmeric root extract oral RxNorm: 7490846 oral 11/27/19 18 Active magnesium oral RxNorm: 6574 oral 04/07/2020 Active Vitamin D3 5,000 unit tablet RxNorm: 209952 1 Tablet(s) PO QD 019 Active warfarin 2 mg tablet RxNorm: 712137 1 Tablet(s) PO QD 08/13/201207/2012 Inactive Ativan 1 mg Tab RxNorm: 148893 1 Tablet(s) PO BID as needed for anxiety 02/26/2011 02/25/2011 Inactive warfarin 2 mg Tab RxNorm: 290551 2 Tablet(s) PO QD saturday06/06/2012 06/05/2012 Inactive Tricor 145 mg Tab RxNorm: 312018 1 Tablet(s) PO QD 12/06/2011 012 Inactive warfarin 4 mg tablet RxNorm: 148089 Tablet(s) PO 11/27/2017 11/26/2017 Inactive warfarin 2 mg Tab RxNorm: 975320 1 Tablet(s) PO QD on saturday and saturday06/06/2012 06/05/2012 Inactive warfarin 2 mg tablet RxNorm: 045167 1.5 Tablet(s) PO on , , Sat, and Sun and 2 tablets on Sat, Sat, Sat07/13/2019 07/12/2019 Inactive pravastatin 80 mg tablet RxNorm: 474481 1 Tablet(s) PO QD 12/19/2015 12/19/2015 Inactive metoprolol tartrate 50 mg tablet RxNorm: 264892 1 Tablet(s) PO QD 1 09/01/2019 Inactive Warfarin 2 mg Tab RxNorm: 738421 Tablet(s) PO 2 table ts by mouth Saturday through Saturday, and one tablet by mouth on Saturday and Saturday. 06/06/201012/2009 Inactive Namenda 10 mg Tab RxNorm: 047801 2 Tablet(s) PO QD 07/02/2013 013 Inactive warfarin 2 mg tablet RxNorm: 067669 1 1/2 Tablet(s) PO MWF and 2 tablets on Sat and Sun 09/02/2018 09/01/2018 Inactive Ativan 1 mg Tab RxNorm: 833826 1 Tablet(s) PO BID PRN for anxiety 04/20/2010 04/19/2010 Inactive warfarin 2 mg Tab RxNorm: 731253 Tablet(s) PO take 2 tablets by mouth Sat-Sat and 1 tablet on Saturday and Saturday06/06/2012 06/05/2012 Inactive Depakote ER 250 mg tablet,extended release RxNorm: 3072446 1 Tab let(s) PO BID 11/27/2017 11/26/2017 Inactive warfarin 1 mg Tab RxNorm: 393707 1 Tablet(s) PO on Saturday and Saturday10/30/2010 [...] Code Result Date S ervice Location PT [id number] PT 24.4 Seconds 07/05/2021 Unknow n PT [id number] INR 2.2 07/05/2021 Unknown PT [id number] PT 25.2 Seconds 04/28/2021 Unknow n PT [id number] INR 2.3 04/28/2021 Unknown THYROID STIMULATING HORMONE 40850 TSH 2.271 uIU/mL 04/28/2021 Unknown COMPREHENSIVE METABOLIC 96664 AST 18 U/L 2020 Unknown COMPREHENSIVE METABOLIC 11838 ALT 9 U/L 2020 Unknown COMPREHENSIVE METABOLIC 82116 BUN 17 mg/dL 2020 Unknown COMPREHENSIVE METABOLIC 00063 ALBUMIN 3.8 g/dL 2020 Unknown COMPREHENSIVE METABOLIC 81711 CHLORIDE 108 mmol/L 04/28 Unknown COMPREHENSIVE METABOLIC 89907 Bili Total 0.7 mg/dL 04/28 Unknown COMPREHENSIVE METABOLIC 96284 ALK PHOS 76 U/L 2020 Unknown COMPREHENSIVE METABOLIC 14850 SODIUM 140 mmol/L 04/28 Unknown COMPREHENSIVE METABOLIC 04018 CREATININE 0.83 mg/dL 04/05 Unknown COMPREHENSIVE METABOLIC 72380 CALCIUM 9.5 mg/dL 2020 Unknown COMPREHENSIVE METABOLIC 65115 POTASSIUM 4.1 mmol/L 04/28 Unknown COMPREHENSIVE METABOLIC 77436 Total Protein 6.9 g/dL Unknown COMPREHENSIVE METABOLIC 83472 Glucose 106 mg/dL 2020 Unknown COMPREHENSIVE METABOLIC 38705 Bicarbonate 26 mmol/L 04/05 Unknown COMPREHENSIVE METABOLIC 65923 AGAP 6 mmol/L 2020 Unknown GFR CALC 8367828 GFR Non Afr Amr >60 mL/min 04/28/2021 Un known GFR CALC [id number] GFR Afr Amr >60 mL/min 04/28/2021 Unknow n COMPLETE BLOOD COUNT [id number] WBC 4.6 10e9/L 04/28/20 21 Unknown COMPLETE BLOOD COUNT [id number] RBC 4.39 10e12/L 2020 Unknown COMPLETE BLOOD COUNT [id number] HEMOGLOBIN 14.2 g/dL 04/28/20 21 Unknown COMPLETE BLOOD COUNT [id number] HEMATOCRIT 41.1 % 04/28/20 21 Unknown COMPLETE BLOOD COUNT [id number] MCV 93.6 fL 1 Unknown COMPLETE BLOOD COUNT [id number] MCH 32.3 pg 1 Unknown COMPLETE BLOOD COUNT [id number] MCHC 34.5 g/dL 1 Unknown COMPLETE BLOOD COUNT [id number] PLATELET COUNT 198 10e9/L Unknown COMPLETE BLOOD COUNT 3260648 Mean Plt Volume 9.3 fL Unknown COMPLETE BLOOD COUNT 9340408 Neut Auto 54.8 % 1 Unknown COMPLETE BLOOD COUNT [id number] Lymph Auto 33.7 % 04/28/20 21 Unknown COMPLETE BLOOD COUNT 9057541 [place] Auto 9.6 % 1 Unknown COMPLETE BLOOD COUNT 7581330 RDW 12.2 % 1 Unknown COMPLETE BLOOD COUNT 3330931 Eos Auto 1.7 % 1 Unknown COMPLETE BLOOD COUNT 3258959 Baso Auto 0.2 % 1 Unknown COMPLETE BLOOD COUNT [id number] Neutrophil Abs 2.52 10e9/L Unknown COMPLETE BLOOD COUNT [id number] Lymphocyte Abs 1.55 10e9/L Unknown COMPLETE BLOOD COUNT [id number] Monocyte Abs 0.44 10e9/L 04/05 Unknown COMPLETE BLOOD COUNT [id number] Eosinophil Abs 0.08 10e9/L Unknown COMPLETE BLOOD COUNT 9879778 RDW-SD 40.9 fL Unknown COMPLETE BLOOD COUNT [id number] Basophil Abs 0.01 10e9/L 04/05 Unknown FREE T4 75087 T4 Free 0.81 ng/dL 04/28/2021 Unknown PT [id number] PT 19.8 Seconds 01/18/2021 Unknow n PT [id number] INR 1.6 01/18/2021 Unknown PT [id number] PT 18.7 Seconds 10/14/2020 Unknow n PT [id number] INR 1.5 10/14/2020 Unknown COMPREHENSIVE METABOLIC 74541 AST 17 U/L 2019 Unknown COMPREHENSIVE METABOLIC 82713 ALT 10 U/L 2019 Unknown COMPREHENSIVE METABOLIC 35291 BUN 19 mg/dL 2019 Unknown COMPREHENSIVE METABOLIC 78574 ALBUMIN 4.1 g/dL 2019 Unknown COMPREHENSIVE METABOLIC 64364 CHLORIDE 103 mmol/L 10/14 Unknown COMPREHENSIVE METABOLIC 52730 Bili Total 0.6 mg/dL 10/14 Unknown COMPREHENSIVE METABOLIC 05957 ALK PHOS 65 U/L 2019 Unknown COMPREHENSIVE METABOLIC 55956 SODIUM 141 mmol/L 10/14 Unknown COMPREHENSIVE METABOLIC 07504 CREATININE 0.77 mg/dL 10/04 Unknown COMPREHENSIVE METABOLIC 65253 CALCIUM 9.2 mg/dL 2019 Unknown COMPREHENSIVE METABOLIC 39973 POTASSIUM 4.2 mmol/L 10/14 Unknown COMPREHENSIVE METABOLIC 00867 Total Protein 6.7 g/dL Unknown COMPREHENSIVE METABOLIC 24510 Glucose 91 mg/dL 2019 Unknown COMPREHENSIVE METABOLIC 87447 Bicarbonate 28 mmol/L 10/04 Unknown COMPREHENSIVE METABOLIC 72009 AGAP 10 mmol/L 2019 Unknown FREE T4 74557 T4 Free 0.81 ng/dL 10/14/2020 Unknown HEMOGLOBIN A1C (GLYCOSYLATED) 0741285 Hgb A1c 15419-3 4.4 % 10/14/2020 Unknown HEMOGLOBIN A1C (GLYCOSYLATED) 1233418 Calc Mean Gluc 80 mg /dL 10/14/2020 Unknown COMPLETE BLOOD COUNT 3615615 WBC 5.4 10e9/L 10/14/20 20 Unknown COMPLETE BLOOD COUNT [id number] RBC 4.40 10e12/L 2019 Unknown COMPLETE BLOOD COUNT [id number] HEMOGLOBIN 14.4 g/dL 10/14/20 20 Unknown COMPLETE BLOOD COUNT [id number] HEMATOCRIT 42.4 % 10/14/20 20 Unknown COMPLETE BLOOD COUNT [id number] MCV 96.4 fL 0 Unknown COMPLETE BLOOD COUNT 5191140 MCH 32.7 pg 0 Unknown COMPLETE BLOOD COUNT [id number] MCHC 34.0 g/dL 0 Unknown COMPLETE BLOOD COUNT 0565503 PLATELET COUNT 216 10e9/L 09/2020 Unknown COMPLETE BLOOD COUNT 2302949 Mean Plt Volume 9.5 fL 09/2020 Unknown COMPLETE BLOOD COUNT 9017605 Neut Auto 57.6 % 0 Unknown COMPLETE BLOOD COUNT 2324071 Lymph Auto 31.5 % 10/14/20 20 Unknown COMPLETE BLOOD COUNT 1538432 [place] Auto 9.0 % 0 Unknown COMPLETE BLOOD COUNT 7381152 RDW 12.4 % 0 Unknown COMPLETE BLOOD COUNT 1054428 Eos Auto 1.7 % 0 Unknown COMPLETE BLOOD COUNT 5976181 Baso Auto 0.2 % 0 Unknown COMPLETE BLOOD COUNT 7394294 Neutrophil Abs 3.11 10e9/L Unknown COMPLETE BLOOD COUNT [id number] Lymphocyte Abs 1.70 10e9/L Unknown COMPLETE BLOOD COUNT 5843999 Monocyte Abs 0.49 10e9/L 10/04 Unknown COMPLETE BLOOD COUNT [id number] Eosinophil Abs 0.09 10e9/L Unknown COMPLETE BLOOD COUNT [id number] RDW-SD 42.4 fL 0 Unknown COMPLETE BLOOD COUNT 8327318 Basophil Abs 0.01 10e9/L 10/04 Unknown THYROID STIMULATING HORMONE 08000 TSH 2.071 uIU/mL 10/14/2020 Unknown LIPID GROUP 84681 Cholesterol 217 mg/dL 10/14/2020 Unkno wn LIPID GROUP 11254 Triglyceride 108 mg/dL 10/14/2020 Unkn own LIPID GROUP 14754 HDL CHOLESTEROL 46 mg/dL 10/14/2020 U nknown LIPID GROUP 41838 Chol/HDL Ratio 4.72 ratio 10/14/2020 U nknown LIPID GROUP 50840 NON-HDL Chol 171 mg/dL 10/14/2020 Unkn own LIPID GROUP 97786 LDL Cholesterol 149 mg/dL 10/14/2020 U nknown GFR CALC 1557893 GFR Non Afr Amr >60 mL/min 10/14/2020 Un known GFR CALC 9417620 GFR Afr Amr >60 mL/min 10/14/2020 Unknow n COMPLETE BLOOD COUNT 0473130 WBC 7.6 10e9/L 04/06/20 20 Unknown COMPLETE BLOOD COUNT 9135354 RBC 3.90 10e12/L 2019 Unknown COMPLETE BLOOD COUNT [id number] HEMOGLOBIN 12.0 g/dL 04/06/20 20 Unknown COMPLETE BLOOD COUNT [id number] HEMATOCRIT 36.9 % 04/06/20 20 Unknown COMPLETE BLOOD COUNT 7485416 MCV 94.6 fL 0 Unknown COMPLETE BLOOD COUNT 4583223 MCH 30.8 pg 0 Unknown COMPLETE BLOOD COUNT 9069655 MCHC 32.5 g/dL 0 Unknown COMPLETE BLOOD COUNT 3816688 PLATELET COUNT 257 10e9/L 01/2020 Unknown COMPLETE BLOOD COUNT 9457763 Mean Plt Volume 8.6 fL 01/2020 Unknown COMPLETE BLOOD COUNT 0811528 Neut Auto 68.7 % 0 Unknown COMPLETE BLOOD COUNT 5995087 Lymph Auto 22.0 % 04/06/20 20 Unknown COMPLETE BLOOD COUNT 6675941 [place] Auto 8.3 % 0 Unknown COMPLETE BLOOD COUNT 0704904 RDW 12.7 % 0 Unknown COMPLETE BLOOD COUNT 2076866 Eos Auto 0.7 % 0 Unknown COMPLETE BLOOD COUNT 0585673 Baso Auto 0.3 % 0 Unknown COMPLETE BLOOD COUNT 3684714 Neutrophil Abs 5.22 10e9/L Unknown COMPLETE BLOOD COUNT 2940285 Lymphocyte Abs 1.67 10e9/L Unknown COMPLETE BLOOD COUNT [id number] Monocyte Abs 0.63 10e9/L 01/2020 Unknown COMPLETE BLOOD COUNT 1614854 Eosinophil Abs 0.05 10e9/L Unknown COMPLETE BLOOD COUNT 4657108 RDW-SD 42.6 fL 0 Unknown COMPLETE BLOOD COUNT [id number] Basophil Abs 0.02 10e9/L 01/2020 Unknown PT [id number] PT 19.3 Seconds 04/06/2020 Unknow n PT 1756607 INR 1.6 04/06/2020 Unknown COMPREHENSIVE METABOLIC 03186 AST 12 U/L 2019 Unknown COMPREHENSIVE METABOLIC 64790 ALT 7 U/L 2019 Unknown COMPREHENSIVE METABOLIC 40758 BUN 19 mg/dL 2019 Unknown COMPREHENSIVE METABOLIC 58224 ALBUMIN 3.8 g/dL 2019 Unknown COMPREHENSIVE METABOLIC 47778 CHLORIDE 103 mmol/L 04/06 Unknown COMPREHENSIVE METABOLIC 23754 Bili Total 0.4 mg/dL 04/06 Unknown COMPREHENSIVE METABOLIC 65784 ALK PHOS 78 U/L 2019 Unknown COMPREHENSIVE METABOLIC 10483 SODIUM 141 mmol/L 04/06 Unknown COMPREHENSIVE METABOLIC 03850 CREATININE 0.90 mg/dL 01/2020 Unknown COMPREHENSIVE METABOLIC 26240 CALCIUM 9.0 mg/dL 2019 Unknown COMPREHENSIVE METABOLIC 14780 POTASSIUM 3.8 mmol/L 04/06 Unknown COMPREHENSIVE METABOLIC 16412 Total Protein 6.1 g/dL Unknown COMPREHENSIVE METABOLIC 03018 Glucose 125 mg/dL 2019 Unknown COMPREHENSIVE METABOLIC 53360 Bicarbonate 27 mmol/L 01/2020 Unknown COMPREHENSIVE METABOLIC 96723 AGAP 11 mmol/L 2019 Unknown GFR CALC 5136616 GFR Non Afr Amr >60 mL/min 04/06/2020 Un known GFR CALC [id number] GFR Afr Amr >60 mL/min 04/06/2020 Unknow n PT [id number] PT 25.2 Seconds 09/02/2019 Unknow n PT [id number] INR 2.2 09/02/2019 Unknown PT [id number] PT 26.5 Seconds 04/22/2019 Unknow n PT [id number] INR 2.3 04/22/2019 Unknown FERRITIN 04766 FERRITIN 240.3 ng/mL 04/22/2019 Unknown COMPLETE BLOOD COUNT 1719668 WBC 7.7 10e9/L 04/22/20 19 Unknown COMPLETE BLOOD COUNT [id number] RBC 4.19 10e12/L 2018 Unknown COMPLETE BLOOD COUNT [id number] HEMOGLOBIN 13.5 g/dL 04/22/20 19 Unknown COMPLETE BLOOD COUNT [id number] HEMATOCRIT 39.6 % 04/22/20 19 Unknown COMPLETE BLOOD COUNT 5940267 MCV 94.5 fL 9 Unknown COMPLETE BLOOD COUNT 1271643 MCH 32.2 pg 9 Unknown COMPLETE BLOOD COUNT 1750372 MCHC 34.1 g/dL 9 Unknown COMPLETE BLOOD COUNT 4487237 PLATELET COUNT 235 10e9/L Unknown COMPLETE BLOOD COUNT 9746780 Mean Plt Volume 9.8 fL Unknown COMPLETE BLOOD COUNT 8734188 Neut Auto 68.5 % 9 Unknown COMPLETE BLOOD COUNT 8563664 Lymph Auto 22.4 % 04/22/20 19 Unknown COMPLETE BLOOD COUNT 9626075 [place] Auto 8.3 % 9 Unknown COMPLETE BLOOD COUNT 1526228 RDW 12.4 % 9 Unknown COMPLETE BLOOD COUNT 2320842 Eos Auto 0.5 % 9 Unknown COMPLETE BLOOD COUNT [id number] Baso Auto 0.3 % 9 Unknown COMPLETE BLOOD COUNT [id number] Neutrophil Abs 5.27 10e9/L Unknown COMPLETE BLOOD COUNT [id number] Lymphocyte Abs 1.72 10e9/L Unknown COMPLETE BLOOD COUNT [id number] Monocyte Abs 0.64 10e9/L 04/04 Unknown COMPLETE BLOOD COUNT [id number] Eosinophil Abs 0.04 10e9/L Unknown COMPLETE BLOOD COUNT [id number] RDW-SD 41.6 fL 9 Unknown COMPLETE BLOOD COUNT [id number] Basophil Abs 0.02 10e9/L 04/04 Unknown IRON 55999 Iron 95 ug/dL 04/22/2019 Unknown GFR CALC [id number] GFR Non Afr Amr >60 mL/min 01/05/2019 Un known GFR CALC [id number] GFR Afr Amr >60 mL/min 01/05/2019 Unknow n COMPREHENSIVE METABOLIC 56395 AST 15 U/L 2018 Unknown COMPREHENSIVE METABOLIC 42408 ALT 11 U/L 2018 Unknown COMPREHENSIVE METABOLIC 96366 BUN 16 mg/dL 2018 Unknown COMPREHENSIVE METABOLIC 96681 ALBUMIN 3.9 g/dL 2018 Unknown COMPREHENSIVE METABOLIC 02403 CHLORIDE 106 mmol/L 01/05 Unknown COMPREHENSIVE METABOLIC 80179 Bili Total 0.7 mg/dL 01/05 Unknown COMPREHENSIVE METABOLIC 46993 ALK PHOS 50 U/L 2018 Unknown COMPREHENSIVE METABOLIC 55269 SODIUM 138 mmol/L 01/05 Unknown COMPREHENSIVE METABOLIC 10550 CREATININE 0.74 mg/dL 02/2019 Unknown COMPREHENSIVE METABOLIC 77847 CALCIUM 9.0 mg/dL 2018 Unknown COMPREHENSIVE METABOLIC 05876 POTASSIUM 4.3 mmol/L 01/05 Unknown COMPREHENSIVE METABOLIC 57811 Total Protein 6.4 g/dL Unknown COMPREHENSIVE METABOLIC 55809 Glucose 114 mg/dL 2018 Unknown COMPREHENSIVE METABOLIC 74427 Bicarbonate 26 mmol/L 02/2019 Unknown COMPREHENSIVE METABOLIC 56787 AGAP 6 mmol/L 2018 Unknown COMPLETE BLOOD COUNT [id number] WBC 5.5 10e9/L 01/06/20 19 Unknown COMPLETE BLOOD COUNT [id number] RBC 4.27 10e12/L 2018 Unknown COMPLETE BLOOD COUNT [id number] HEMOGLOBIN 14.0 g/dL 01/06/20 19 Unknown COMPLETE BLOOD COUNT [id number] HEMATOCRIT 40.6 % 01/06/20 19 Unknown COMPLETE BLOOD COUNT [id number] MCV 95.1 fL 9 Unknown COMPLETE BLOOD COUNT [id number] MCH 32.8 pg 9 Unknown COMPLETE BLOOD COUNT [id number] MCHC 34.5 g/dL 9 Unknown COMPLETE BLOOD COUNT [id number] PLATELET COUNT 211 10e9/L 02/2019 Unknown COMPLETE BLOOD COUNT [id number] Mean Plt Volume 9.8 fL 02/2019 Unknown COMPLETE BLOOD COUNT [id number] Neut Auto 64.7 % 9 Unknown COMPLETE BLOOD COUNT [id number] Lymph Auto 24.3 % 01/06/20 19 Unknown COMPLETE BLOOD COUNT [id number] [place] Auto 9.7 % 9 Unknown COMPLETE BLOOD COUNT [id number] RDW 12.2 % 9 Unknown COMPLETE BLOOD COUNT [id number] Eos Auto 1.1 % 9 Unknown COMPLETE BLOOD COUNT [id number] Baso Auto 0.2 % 9 Unknown COMPLETE BLOOD COUNT [id number] Neutrophil Abs 3.56 10e9/L Unknown COMPLETE BLOOD COUNT [id number] Lymphocyte Abs 1.34 10e9/L Unknown COMPLETE BLOOD COUNT [id number] Monocyte Abs 0.53 10e9/L 02/2019 Unknown COMPLETE BLOOD COUNT [id number] Eosinophil Abs 0.06 10e9/L Unknown COMPLETE BLOOD COUNT [id number] RDW-SD 41.3 fL 9 Unknown COMPLETE BLOOD COUNT [id number] Basophil Abs 0.01 10e9/L 02/2019 Unknown LIPID GROUP 45191 Cholesterol 145 mg/dL 01/05/2019 Unkno wn LIP[facility] GROUP 25228 Triglyceride 153 mg/dL 01/05/2019 Unkn own L[facility] GROUP 80300 HDL CHOLESTEROL 39 mg/dL 01/05/2019 U nknown L[facility] GROUP 27114 Chol/HDL Ratio 3.72 ratio 01/05/2019 U nknown [facility] 05140 NON-HDL Chol 106 mg/dL 01/05/2019 Unkn own [facility] 02774 LDL Cholesterol 75 mg/dL 01/05/2019 U nknown PT [id number] PT 30.5 Seconds 12/15/2018 Unknow n PT [id number] INR 2.9 12/15/2018 Unknown PT [id number] PT 17.2 Seconds 09/08/2018 Unknow n PT 7843566 INR 1.4 09/08/2018 Unknown L[facility] GROUP 39025 Cholesterol 190 mg/dL 07/08/2018 Unkno wn [facility] 14170 Triglyceride 402 mg/dL 07/08/2018 Unkn own [facility] 45374 HDL CHOLESTEROL 36 mg/dL 07/08/2018 U nknown [facility] 85321 Chol/HDL Ratio 5.28 ratio 07/08/2018 U nknown [facility] 57004 NON-HDL Chol 154 mg/dL 07/08/2018 Unkn own [facility] 77311 LDL Cholesterol N/A Trig >400 018 Unknown GFR CALC 7700167 GFR Non Afr Amr >60 mL/min 07/08/2018 Un known GFR CALC 8004804 GFR Afr Amr >60 mL/min 07/08/2018 Unknow n COMPLETE BLOOD COUNT [id number] WBC 5.0 10e9/L 07/08/20 18 Unknown COMPLETE BLOOD COUNT [id number] RBC 4.08 10e12/L 2017 Unknown COMPLETE BLOOD COUNT [id number] HEMOGLOBIN 13.3 g/dL 07/08/20 18 Unknown COMPLETE BLOOD COUNT [id number] HEMATOCRIT 38.6 % 07/08/20 18 Unknown COMPLETE BLOOD COUNT [id number] MCV 94.6 fL 8 Unknown COMPLETE BLOOD COUNT [id number] MCH 32.6 pg 8 Unknown COMPLETE BLOOD COUNT [id number] MCHC 34.5 g/dL 8 Unknown COMPLETE BLOOD COUNT [id number] PLATELET COUNT 205 10e9/L 02/2018 Unknown COMPLETE BLOOD COUNT [id number] Mean Plt Volume 9.8 fL 02/2018 Unknown COMPLETE BLOOD COUNT [id number] Neut Auto 52.8 % 8 Unknown COMPLETE BLOOD COUNT [id number] Lymph Auto 33.2 % 07/08/20 18 Unknown COMPLETE BLOOD COUNT [id number] [place] Auto 11.6 % 8 Unknown COMPLETE BLOOD COUNT 6225530 RDW 12.5 % 8 Unknown COMPLETE BLOOD COUNT 7283156 Eos Auto 2.0 % 8 Unknown COMPLETE BLOOD COUNT [id number] Baso Auto 0.4 % 8 Unknown COMPLETE BLOOD COUNT [id number] Neutrophil Abs 2.64 10e9/L Unknown COMPLETE BLOOD COUNT [id number] Lymphocyte Abs 1.66 10e9/L Unknown COMPLETE BLOOD COUNT [id number] Monocyte Abs 0.58 10e9/L 02/2018 Unknown COMPLETE BLOOD COUNT [id number] Eosinophil Abs 0.10 10e9/L Unknown COMPLETE BLOOD COUNT [id number] RDW-SD 41.8 fL 8 Unknown COMPLETE BLOOD COUNT [id number] Basophil Abs 0.02 10e9/L 02/2018 Unknown PT [id number] PT 32.9 Seconds 07/08/2018 Unknow n PT [id number] INR 3.2 07/08/2018 Unknown PT [id number] PT TNP:Duplicate Order 8 Unknown PT [id number] INR TNP:Duplicate Order 8 Unknown COMPREHENSIVE METABOLIC 36485 AST TNP:Duplicate Or grace 07/08/2018 Unknown COMPREHENSIVE METABOLIC 21800 ALT TNP:Duplicate Or grace 07/08/2018 Unknown COMPREHENSIVE METABOLIC 48945 BUN TNP:Duplicate Or grace 07/08/2018 Unknown COMPREHENSIVE METABOLIC 68905 ALBUMIN TNP:Duplicate Or grace 07/08/2018 Unknown COMPREHENSIVE METABOLIC 39716 CHLORIDE TNP:Duplicate Or grace 07/08/2018 Unknown COMPREHENSIVE METABOLIC 80296 Bili Total TNP:Duplicate O rder 07/08/2018 Unknown COMPREHENSIVE METABOLIC 76578 ALK PHOS TNP:Duplicate Or grace 07/08/2018 Unknown COMPREHENSIVE METABOLIC 02595 SODIUM TNP:Duplicate Or grace 07/08/2018 Unknown COMPREHENSIVE METABOLIC 92956 CREATININE TNP:Duplicate O rder 07/08/2018 Unknown COMPREHENSIVE METABOLIC 73271 CALCIUM TNP:Duplicate Or grace 07/08/2018 Unknown COMPREHENSIVE METABOLIC 15708 POTASSIUM TNP:Duplicate Or grace 07/08/2018 Unknown COMPREHENSIVE METABOLIC 08935 Total Protein TNP:Duplicat e Order 07/08/2018 Unknown COMPREHENSIVE METABOLIC 82830 Glucose TNP:Duplicate Or grace 07/08/2018 Unknown COMPREHENSIVE METABOLIC 64425 Bicarbonate TNP:Duplicate Order 07/08/2018 Unknown COMPREHENSIVE METABOLIC 96037 AGAP TNP:Duplicate Or grace 07/08/2018 Unknown COMPREHENSIVE METABOLIC 48016 AST 17 U/L 2017 Unknown COMPREHENSIVE METABOLIC 47518 ALT 12 U/L 2017 Unknown COMPREHENSIVE METABOLIC 21290 BUN 20 mg/dL 2017 Unknown COMPREHENSIVE METABOLIC 81467 ALBUMIN 4.0 g/dL 2017 Unknown COMPREHENSIVE METABOLIC 06032 CHLORIDE 107 mmol/L 07/08 Unknown COMPREHENSIVE METABOLIC 55328 Bili Total 0.3 mg/dL 07/08 Unknown COMPREHENSIVE METABOLIC 72361 ALK PHOS 58 U/L 2017 Unknown COMPREHENSIVE METABOLIC 57408 SODIUM 139 mmol/L 07/08 Unknown COMPREHENSIVE METABOLIC 09386 CREATININE 0.72 mg/dL 02/2018 Unknown COMPREHENSIVE METABOLIC 23079 CALCIUM 7.8 mg/dL 2017 Unknown COMPREHENSIVE METABOLIC 13246 POTASSIUM 4.1 mmol/L 07/08 Unknown COMPREHENSIVE METABOLIC 86272 Total Protein 6.2 g/dL Unknown COMPREHENSIVE METABOLIC 51460 Glucose 107 mg/dL 2017 Unknown COMPREHENSIVE METABOLIC 42554 Bicarbonate 22 mmol/L 02/2018 Unknown COMPREHENSIVE METABOLIC 21057 AGAP 10 mmol/L 2017 Unknown GFR CALC 7243165 GFR Non Afr Amr >60 mL/min 11/28/2017 Un known GFR CALC 1240074 GFR Afr Amr >60 mL/min 11/28/2017 Unknow n THYROID STIMULATING HORMONE 60951 TSH 4.029 uIU/mL 11/28/2017 Unknown LIPID GROUP 61554 Cholesterol 181 mg/dL 11/28/2017 Unkno wn LIP[facility] GROUP 92798 Triglyceride 193 mg/dL 11/28/2017 Unkn own LIP[facility] GROUP 45645 HDL CHOLESTEROL 36 11/28/2017 U nknown LIP[facility] GROUP 40283 Chol/HDL Ratio 5.03 ratio 11/28/2017 U nknown LIPID GROUP 40729 NON-HDL Chol 145 mg/dL 11/28/2017 Unkn own L[facility] GROUP 28783 LDL Cholesterol 106 mg/dL 11/28/2017 U nknown PT 1275999 PT 22.2 Seconds 11/28/2017 Unknow n PT 6034130 INR 2.0 11/28/2017 Unknown COMPREHENSIVE METABOLIC 14304 AST 19 U/L 2017 Unknown COMPREHENSIVE METABOLIC 65103 ALT 16 U/L 2017 Unknown COMPREHENSIVE METABOLIC 10055 BUN 22 mg/dL 2017 Unknown COMPREHENSIVE METABOLIC 35502 ALBUMIN 4.1 g/dL 2017 Unknown COMPREHENSIVE METABOLIC 54429 CHLORIDE 108 mmol/L 11/28 Unknown COMPREHENSIVE METABOLIC 77905 Bili Total 0.5 mg/dL 11/28 Unknown COMPREHENSIVE METABOLIC 92309 ALK PHOS 53 U/L 2017 Unknown COMPREHENSIVE METABOLIC 89399 SODIUM 141 mmol/L 11/28 Unknown COMPREHENSIVE METABOLIC 64396 CREATININE 0.83 mg/dL 11/05 Unknown COMPREHENSIVE METABOLIC 24658 CALCIUM 9.1 mg/dL 2017 Unknown COMPREHENSIVE METABOLIC 30279 POTASSIUM 4.6 mmol/L 11/28 Unknown COMPREHENSIVE METABOLIC 56588 Total Protein 6.5 g/dL Unknown COMPREHENSIVE METABOLIC 70378 Glucose 106 mg/dL 2017 Unknown COMPREHENSIVE METABOLIC 87111 Bicarbonate 26 mmol/L 11/05 Unknown COMPREHENSIVE METABOLIC 17717 AGAP 7 mmol/L 2017 Unknown COMPLETE BLOOD COUNT [id number] WBC 5.1 10e9/L 11/28/19 18 Unknown COMPLETE BLOOD COUNT [id number] RBC 4.22 10e12/L 2017 Unknown COMPLETE BLOOD COUNT [id number] HEMOGLOBIN 13.5 g/dL 11/28/19 18 Unknown COMPLETE BLOOD COUNT 1642075 HEMATOCRIT 39.1 % 11/28/19 18 Unknown COMPLETE BLOOD COUNT [id number] MCV 92.7 fL 8 Unknown COMPLETE BLOOD COUNT 2059571 MCH 32.0 pg 8 Unknown COMPLETE BLOOD COUNT 9646996 MCHC 34.5 g/dL 8 Unknown COMPLETE BLOOD COUNT 0299343 PLATELET COUNT 226 10e9/L Unknown COMPLETE BLOOD COUNT 8752684 Mean Plt Volume 9.6 fL Unknown COMPLETE BLOOD COUNT 5114221 Neut Auto 49.5 % 8 Unknown COMPLETE BLOOD COUNT 2307472 Lymph Auto 35.3 % 11/28/19 18 Unknown COMPLETE BLOOD COUNT 4541096 [place] Auto 12.4 % 8 Unknown COMPLETE BLOOD COUNT 5777805 RDW 12.4 % 8 Unknown COMPLETE BLOOD COUNT 8446716 Eos Auto 2.2 % 8 Unknown COMPLETE BLOOD COUNT 9870348 Baso Auto 0.6 % 8 Unknown COMPLETE BLOOD COUNT [id number] Neutrophil Abs 2.52 10e9/L Unknown COMPLETE BLOOD COUNT 4812841 Lymphocyte Abs 1.80 10e9/L Unknown COMPLETE BLOOD COUNT 4750549 Monocyte Abs 0.63 10e9/L 11/05 Unknown COMPLETE BLOOD COUNT 9501427 Eosinophil Abs 0.11 10e9/L Unknown COMPLETE BLOOD COUNT [id number] RDW-SD 41.2 fL 8 Unknown COMPLETE BLOOD COUNT [id number] Basophil Abs 0.03 10e9/L 11/05 Unknown Procedures Procedure Codes Date FLU VACC PRSV FREE INC ANTIG 65 AND OLDER CPT-4: 49410 08/18/2021 FLU VACC PRSV FREE INC ANTIG 65 AND OLDER CPT-4: 11497 08/18/2021 ADMIN INFLUENZA VIRUS VAC CPT-4: G0008 08/18/2021 ROUTINE VENIPUNCTURE CPT-4: 49945 07/05/2021 PROTHROMBIN TIME CPT-4: 38721 07/05/2021 PPPS, subseq visit CPT-4: G0439 10/12/2020 ROUTINE VENIPUNCTURE CPT-4: 44089 04/06/2020 COMPREHEN METABOLIC PANEL CPT-4: 64947 04/06/2020 COMPLETE CBC W/AUTO DIFF WBC CPT-4: 85312 04/06/2020 PROTHROMBIN TIME CPT-4: 52913 04/06/2020 PPPS, subseq visit CPT-4: G0439 09/02/2019 ROUTINE VENIPUNCTURE CPT-4: 71566 09/02/2019 PROTHROMBIN TIME CPT-4: 79238 09/02/2019 FLU VACC PRSV FREE INC ANTIG 65 AND OLDER CPT-4: 87683 08/20/2018 PNEUMOCOCCAL VACC 23 BRIDGET IM CPT-4: 02401 08/20/2018 ADMIN INFLUENZA VIRUS VAC CPT-4: G0008 08/20/2018 ADMIN PNEUMOCOCCAL VACCINE CPT-4: G0009 08/20/2018 PPPS, subseq visit CPT-4: G0439 11/27/2017 FLU VACC PRSV FREE INC ANTIG 65 AND OLDER CPT-4: 83706 08/14/2017 PNEUMOCOCCAL VACC 13 BRIDGET IM CPT-4: 21498 08/14/2017 ADMIN INFLUENZA VIRUS VAC CPT-4: G0008 08/14/2017 ADMIN PNEUMOCOCCAL VACCINE CPT-4: G0009 08/14/2017 FLU VACC PRSV FREE INC ANTIG 65 AND OLDER CPT-4: 32136 10/03/2016 ADMIN INFLUENZA VIRUS VAC CPT-4: G0008 10/03/2016 PPPS, subseq visit CPT-4: G0439 10/10/2015 FLUZONE, 5ML (Medicare) CPT-4: Q2038 09/01/2014 ADMIN INFLUENZA VIRUS VAC CPT-4: G0008 09/01/2014 Vital Signs Date Vital 07/05/2021 Blood Pressure 1: 122/80 Code: 8480-6 Heart Rate 1: 92 bpm Respiratory Rate: 20 bpm SpO2: 96% Temperature: 36.8 (C) / 98.2 (F) We ight: 207 lbs Code: 16132-4 04/26/2021 Blood Pressure 1: 126/82 Code: 8480-6 Heart Rate 1: 104 bpm Respiratory Rate: 20 bpm SpO2: 96% Temperature: 36.7 (C) / 98.1 (F) We ight: 212 lbs Code: 25458-0 10/12/2020 Blood Pressure 1: 104/68 Code: 8480-6 BMI: 31.6 Code: 47065-0 Heart Rate 1: 96 bpm Height: 5'7" Code: 8302-2 Respiratory Rate: 20 bpm SpO2: 95% Temperature: 36.9 (C) / 98.5 (F) Weight: 202 lbs Code: 88205-9 07/13/2020 Blood Pressure 1: 128/72 Code: 8480-6 Heart Rate 1: 76 bpm Respiratory Rate: 18 bpm SpO2: 97% Temperature: 36.3 (C) / 97.3 (F) We ight: 190 lbs Code: 69976-8 04/06/2020 Blood Pressure 1: 106/68 Code: 8480-6 BMI: 29.1 Code: 81235-4 Heart Rate 1: 96 bpm Height: 5'7" Code: 8302-2 Respiratory Rate: 20 bpm SpO2: 96% Temperature: 36.8 (C) / 98.2 (F) Weight: 186 lbs Code: 46731-0 09/02/2019 Blood Pressure 1: 94/50 Code: 8480-6 BMI: 29.8 C ode: 23724-1 Heart Rate 1: 68 bpm Height: 5'7" Code: 8302-2 Respiratory Rate: 20 bpm SpO2: 96% Temperature: 36.6 (C) / 97.9 (F) Weight: 190 lbs Code: 22934-3 07/01/2019 Blood Pressure 1: 112/60 Code: 8480-6 Heart Rate 1: 88 bpm Respiratory Rate: 20 bpm SpO2: 94% Temperature: 36.8 (C) / 98.2 (F) We ight: 201 lbs Code: 76278-4 05/27/2019 Blood Pressure 1: 104/50 Code: 8480-6 Heart Rate 1: 62 bpm SpO2: 95% Temperature: 36.3 (C) / 97.4 (F) Weight: 204 lbs Code: 86213-0 04/22/2019 Blood Pressure 1: 112/72 Code: 8480-6 Heart Rate 1: 64 bpm Respiratory Rate: 20 bpm SpO2: 95% Temperature: 36.8 (C) / 98.2 (F) We ight: 207 lbs Code: 93124-0 02/09/2019 Blood Pressure 1: 104/60 Code: 8480-6 Heart Rate 1: 72 bpm Respiratory Rate: 20 bpm SpO2: 95% Temperature: 37.1 (C) / 98.8 (F) We ight: 216 lbs Code: 61185-7 01/07/2019 Blood Pressure 1: 122/74 Code: 8480-6 Heart Rate 1: 96 bpm Respiratory Rate: 20 bpm SpO2: 96% Temperature: 36.7 (C) / 98.1 (F) We ight: 219 lbs Code: 25214-8 07/09/2018 Blood Pressure 1: 118/65 Code: 8480-6 Heart Rate 1: 62 bpm SpO2: 94% Temperature: 36.2 (C) / 97.1 (F) Weight: 237 lbs Code: 95442-3 11/27/2017 Blood Pressure 1: 124/70 Code: 8480-6 BMI: 35.2 Code: 68982-8 Heart Rate 1: 64 bpm Height: 5'8" Code: 8302-2 Respiratory Rate: 20 bpm SpO2: 94% Temperature: 36.9 (C) / 98.5 (F) Weight: 235 lbs Code: 35618-5 10/10/2015 Blood Pressure 1: 126/78 Code: 8480-6 BMI: 36.0 Code: 72949-5 Heart Rate 1: 72 bpm Height: 5'8" Code: 8302-2 Respiratory Rate: 20 bpm Temperatu re: 36.9 (C) / 98.4 (F) Weight: 240 lbs Code: 67606-4 09/01/2014 Blood Pressure 1: 114/70 Code: 8480-6 BMI: 35.4 Code: 40896-5 Heart Rate 1: 76 bpm Height: 5'8" Code: 8302-2 Respiratory Rate: 20 bpm Temperatu re: 36.7 (C) / 98.1 (F) Weight: 236 lbs Code: 26437-5 07/02/2013 Blood Pressure 1: 124/90 Code: 8480-6 BMI: 33.7 Code: 57340-6 Heart Rate 1: 76 bpm Height: 5'8" Code: 8302-2 Respiratory Rate: 20 bpm Temperatu re: 36.6 (C) / 97.8 (F) Weight: 225 lbs Code: 02017-2 06/25/2012 Blood Pressure 1: 144/100 Code: 8480-6 BMI: 34.5 Code: 91923-8 Heart Rate 1: 76 bpm Height: 5'8" Code: 8302-2 Respiratory Rate: 20 bpm Temperatu re: 36.6 (C) / 97.9 (F) Weight: 230 lbs Code: 76273-4 05/15/2012 Blood Pressure 1: 112/70 Code: 8480-6 BMI: 34.6 Code: 21278-1 Heart Rate 1: 76 bpm Height: 5'8" Code: 8302-2 Respiratory Rate: 20 bpm Temperatu re: 37.0 (C) / 98.6 (F) Weight: 231 lbs Code: 21583-5 12/06/2011 Blood Pressure 1: 142/90 Code: 8480-6 BMI: 35.4 Code: 82676-9 Heart Rate 1: 72 bpm Height: 5'8" Code: 8302-2 Respiratory Rate: 20 bpm Temperatu re: 36.9 (C) / 98.4 (F) Weight: 236 lbs Code: 51330-4 10/30/2010 Blood Pressure 1: 114/78 Code: 8480-6 Heart Rate 1: 76 bpm Temperature: 36.3 (C) / 97.4 (F) Weight: 228 lbs Code: 32629-1 Functional Status No Functional Status data Reason [...] Z23] [facility] CPT-4: 23701 08/18/2021 ([id number]) OFFICE/OUTPATIENT VISIT EST Diagnosis: Parkinson disease[ICD10: G20] 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[ICD10: Z79.01] Roxie LOPEZ DO [facility] CPT-4: 73308 07/05/2021 ([id number]) OFFICE/OUTPATIENT VISIT EST Diagnosis: Parkinson disease[ICD10: G20] Diagnosis: Dementia[ICD10: F03.90] Roxie MOSQUERA DO [facility] CPT-4: 14792 04/26/2021 ([id number]) OFFICE/OUTPATIENT VISIT EST Diagnosis: 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] Diagnosis: 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: G30.9] Roxie LOPEZ DO [facility] CPT-4: 66914 07/13/2020 ([id number]) OFFICE/OUTPATIENT VISIT EST Diagnosis: Alzheimer's disease, unspecified[ICD10: G30.9] Roxie LOPEZ DO [facility] CPT-4: 74401 04/06/2020 ([id number]) OFFICE/OUTPATIENT VISIT EST Diagnosis: Alzheimer's disease with late onset[ICD10: G30.1] Diagnosis: Generalized anxiety disorder[ICD10: F41.1] Diagnosis: Unspecified dementia with behavioral disturbance[ICD10: F03.91] Roxie LOPEZ DO [facility] CPT-4: 51762 07/01/2019 ([id number]) OFFICE/OUTPATIENT VISIT EST Diagnosis: Alzheimer's disease with late onset[ICD10: G30.1] Diagnosis: Abnormal weight loss[ICD10: R63.4] Diagnosis: Essential (primary) hypertension[ICD10: I10] Diagnosis: Melena[ICD10: K92.1] Diagnosis: Unspecified dementia with behavioral disturbance[ICD10: F03.91] Diagnosis: Spontaneous ecchymoses[ICD10: R23.3] Roxie LOPEZ [employer] [facility] CPT-4: 05557 05/27/2019 ([id number]) OFFICE/OUTPATIENT VISIT EST Diagnosis: 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] Diagnosis: Alzheimer's disease with late onset[ICD10: G30.1] Diagnosis: Melena[ICD10: K92.1] Diagnosis: Abnormal weight loss[ICD10: R63.4] Roxie LOPEZ [facility] CPT-4: 76634 04/22/2019 ([id number]) OFFICE/OUTPATIENT VISIT EST Diagnosis: 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] Diagnosis: Slow transit constipation[ICD10: K59.01] Diagnosis: Unspecified dementia with behavioral disturbance[ICD10: F03.91] Roxie LOPEZ [facility] CPT-4: 85147 02/09/2019 ([id number]) OFFICE/OUTPATIENT VISIT EST Diagnosis: Alzheimer's disease with late onset[ICD10: G30.1] Diagnosis: 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] Diagnosis: Nocturia[ICD10: R35.1] Diagnosis: Constipation, unspecified[ICD10: K59.00] Roxie LOPEZ [facility] CPT-4: 28249 01/07/2019 ([id number]) NURSE/OUTPATIENT VISIT EST Diagnosis: FLU VACCINE[ICD10: Z23] Diagnosis: PNEUMOCOCCAL VACCINE[ICD10: Z23] Roxie LOPEZ [facility] CPT-4: 80664 08/20/2018 ([id number]) OFFICE/OUTPATIENT VISIT EST Diagnosis: Mixed hyperlipidemia[ICD10: E78.2] Diagnosis: Essential (primary) hypertension[ICD10: I10] Diagnosis: Alzheimer's disease, unspecified[ICD10: G30.9] Roxie LOPEZ [facility] CPT-4: 32543 07/09/2018 ([id number]) OFFICE/OUTPATIENT VISIT EST Diagnosis: PNEUMOCOCCAL VACCINE[ICD10: Z23] Diagnosis: FLU VACCINE[ICD10: Z23] Roxie BRSYON [facility] CPT-4: 75947 08/14/2017 ([id number]) OFFICE/OUTPATIENT VISIT EST Diagnosis: FLU VACCINE[ICD10: Z23] Roxie BRYSON [facility] CPT-4: 05955 10/03/2016 ([id number]) OFFICE/OUTPATIENT VISIT EST Diagnosis: HYPERTENSION[ICD9: 401.9] Diagnosis: HYPERLIPIDEMIA NEC/NOS[ICD9: 272.4] Diagnosis: MEMORY LOSS[ICD9: 780.93] Diagnosis: - I - ANXIETY STATE NOS[ICD9: 300.00] Diagnosis: FLU VACCINE[ICD10: Z23] Roxie FAUSTIN RmDiane BRAYDON [facility] CPT-4: 51898 09/01/2014 OFFICE/OUTPATIENT VISIT EST Diagnosis: HYPERTENSION[ICD9: 401.9] Diagnosis: CAD[ICD9: 414.00] Diagnosis: HYPERLIPIDEMIA NEC/NOS[ICD9: 272.4] Diagnosis: MEMORY LOSS[ICD9: 780.93] Diagnosis: ANXIETY STATE NOS[ICD9: 300.00] Diagnosis: Testicular pain[ICD9: 608.9] Roxie FAUSTIN RmDiane JULIO [facility] CPT-4: 08279 07/02/2013 ([id number]) OFFICE/OUTPATIENT VISIT EST Diagnosis: MEMORY LOSS[ICD9: 780.93] Roxie FAUSTIN RmDiane DONNA SIMMONS [facility] CPT-4: 38514 06/25/2012 ([id number]) OFFICE/OUTPATIENT VISIT EST Diagnosis: HYPERLIPIDEMIA NEC/NOS[ICD9: 272.4] Diagnosis: HYPERTENSION[ICD9: 401.9] Diagnosis: CAD[ICD9: 414.00] Diagnosis: MEMORY LOSS[ICD9: 780.93] Roxie FAUSTIN RmDiane DONNA SIMMONS [facility] CPT-4: 88671 05/15/2012 PER PM REEVAL EST PAT 65+ YR Diagnosis: ROUTINE MEDICAL EXAM[ICD9: V70.0] Diagnosis: HYPERLIPIDEMIA NEC/NOS[ICD9: 272.4] Diagnosis: HYPERTENSION[ICD9: 401.9] Diagnosis: CAD[ICD9: 414.00] Diagnosis: Seborrheic dermatitis[ICD9: 690.10] Roxie PERRY RmDiane JULIO [employer] [facility] CPT-4: 13766 12/06/2011 ([id number]) OFFICE/OUTPATIENT VISIT, EST Roxie GENTILE RmDiane JULIO [employer] [facility] CPT-4: 17684 10/30/2010 Plan of Care Planned Activity Notes Codes Status Date Visit Diagnosis Plan: Parkinson disease Discussion: In crease sinemet 25/100mg 2po BID Call in 1month ICD-9 : 332.0 ICD-10 : G20 07/05/2021 Visit Diagnosis Plan: intermediate (current) use of antic oagulants Discussion: PT/INR drawn ICD-9 : V58.61 ICD-10 : Z79.01 07/05/2021 Appointment: Roxie Lopeztel: [address] [place] [address] [place] FOLLOW UP 07/05/2021 Visit Diagnosis Plan: Parkinson disease Discussion: Tr ial of sinemet 25/100mg po BID Fwup 2mos ICD-9 : 332.0 ICD-10 : G20 04/26/2021 Appointment: Roxie Lopez WPtel: [address] [place], [place] [phone] [place] FOLLOW UP 04/26/2021 Appointment: Roxie Lopeztel: [address] [place] [address] [place] CANCELED 01/11/2021 Visit Diagnosis Plan: Encounter for [facility] adult medical examination without abnormal findings Discussion: [...] ICD-10 : G30.1 10/12/2020 Visit Diagnosis Plan: terminal clerk (current) use of antic oagulants Discussion: Update PT/INR ICD-9 : V58.61 ICD-10 : Z79.01 10/12/2020 Appointment: Roxie Lopeztel: [address] [place], [place] [phone] [place] Annual Well Visit 10/12/2020 Visit Diagnosis [...] : F02.81 07/13/2020 Appointment: Roxie Lopez WPtel: [address] [place], [place] [phone] [place] FOLLOW UP 07/13/2020 Care Plan: PT Pending 06/27/2020 Visit Diagnosis Plan: Alzheimer's disease, unspecified Discussion: Worsening has started OTC supplements Inquiring about meals on wheels Follow Up: 3 months ICD-9 : 331.0 ICD-10 : G30.9 04/06/2020 Appointment: Roxie Lopez WPtel: [facility] [place] FOLLOW UP 04/06/2020 Care Plan: Referral Order SNOMED-CT : [id number] Pending 04/06/2020 Appointment: Roxie Lopez WPtel: [address] [place], [place] [phone] [place] RESCHEDULED 02/24/2020 Care Plan: COMPREH[place]AB[place] : 93226-7 Pending 12/14/2019 Care Plan: LIPID PANEL LOINC : 18007-7 Pending 12/14/2019 Care Plan: PT Pending 12/14/2019 [...] 09/02/2019 Visit Diagnosis Plan: Encounter for [facility] adult medical examination without abnormal findings Discussion: Mediterranean diet Combinati on of cardio and weight bearing exercise DC pravastatin ICD-9 : V70.0 ICD-10 : Z00.00 09/02/2019 Visit Diagnosis Plan: Encounter for therapeutic drug l evel monitoring Discussion: Check PT/INR ICD-9 : V58.61 ICD-10 : Z51.81 09/02/2019 Appointment: Roxie Lopez WPtel: [address] [place] [address] [place] originally 2 mo follow up Annual Well Visit 08/06 Visit Diagnosis Plan: Generalized anxiety disorder Dis cussion: Depakote already helping Follow Up: 2 months ICD-9 : 300.00 ICD-10 : F41.1 07/01/2019 Appointment: Roxie Lopez WPtel: [address] [place] [address] [place] FOLLOW UP 07/01/2019 Visit Diagnosis Plan: [...] : K92.1 05/27/2019 Appointment: Roxie Lopez WPtel: [address] [place] [address] [place] FOLLOW UP 05/27/2019 Visit Diagnosis Plan: [...] : F51.04 04/22/2019 Appointment: Roxie Lopez WPtel: [address] [place], [place] [phone] FOLLOW UP 04/22/2019 Visit Diagnosis Plan: Unspecified [...] : K59.01 02/09/2019 Appointment: Roxie Lopez WPtel: [address] [place], [place] [phone] FOLLOW UP 02/09/2019 Patient Education: escitalopram oxalate- [employer] [id number] Completed 02/09/2019 Patient Education: doxepin- [employer] [id number] Completed 02/09/2019 Visit Diagnosis Plan: Nocturia Discussion: [...] : F51.04 01/07/2019 Appointment: Roxie Lopez WPtel: [address] [place], [place] [phone] FOLLOW UP 01/07/2019 Patient Education: tamsulosin- [employer] [id number] Completed 01/07/2019 Patient Education: doxepin- [employer] [id number] Completed 01/07/2019 Care Plan: [place]PRE[place] : 607[address]-9 Pending 12/17/2018 Care Plan: CBC Pending 12/17/2018 Care Plan: LIPID PANEL LOINC : 43284-0 Pending 12/17/2018 Appointment: Roxie Lopez WPtel: [address] [place] [address] [place] INJECTION 08/20/2018 Patient Education: Patient Medication [...] : I10 07/09/2018 Appointment: Roxie Lopez WPtel: [address] [place] [address] FOLLOW UP 07/09/2018 Patient Education: Patient Medication Summary Completed 07/09/2018 Visit Diagnosis Plan: Generalized anxiety disorder Dis cussion: Add lexapro 10mg q HS ICD-9 : 300.00 ICD-10 : F41.1 11/27/2017 Visit Diagnosis Plan: Alzheimer's disease, unspecified Discussion: Change Namenda XR to Namenda 10mg po BI Follow Up: 3 months ICD-9 : 331.0 ICD-10 : G30.9 11/27/2017 Visit Diagnosis Plan: Encounter for [facility] adult medical examination without abnormal findings Discussion: Update fasting lab ICD-9 : V70.0 ICD-10 : Z00.00 11/27/2017 Appointment: Roxie Lopez WPtel: [address] [place], [place] [address] Annual Well Visit 11/27/2017 Patient Education: Patient Medication Summary Completed 11/27/2017 Patient Education: Patient Medication Summary Completed 11/14/2017 Care Plan: CBC Pending 11/14/2017 Care Plan: PT Pending 11/14/2017 Care Plan: COMPREH[place]AB[place]IC [place] : 05082-2 Pending 11/14/2017 Care Plan: LIPID PANEL LOINC : 52776-7 Pending 11/14/2017 Care Plan: ASSAY THYROID STIM HORMONE Pen ding 11/14/2017 Appointment: Roxie Lopez WPtel: [address] [place], [place] [phone] [place] INJECTION 08/14/2017 Patient Education: Patient Medication Summary Completed 08/14/2017 Appointment: Roxie Lopez WPtel: [address] [place], [place] [phone] [place] INJECTION 10/03/2016 Patient Education: Patient Medication Summary Completed 10/03/2016 Patient Education: Patient Medication Summary Completed 01/02/2016 Care Plan: CBC Ordered 01/02/2016 Visit Plan: Check fasting lab with next PT/INR Continue current meds Discussed trial of PPI but states gaviscon works if will take so will just try it 10/10/2015 Appointment: Roxie Lopez WPtel: [address] [place], [place] [phone] 10/07/15 appt confirmed cn Annual Well Visit 05/2015 Patient Education: Patient Medication Summary Completed 10/10/2015 Appointment: Roxie Lopez WPtel: [address] [place], [place] [phone] 08/31 no answer cell # 08/31 vm 2nd # FOLLOW UP 09/01/2014 Patient Education: Patient Medication Summary Completed 09/01/2014 Patient Education: Patient Medication Summary Completed 08/23/2014 Visit Plan: Lab discussed Check testicul ar US Change namenda to Namenda XR 23mg QD Check PSA 07/02/2013 Appointment: Roxie Lopez WPtel: [address] [place] [address] ACUTE ILLNESS 07/02/2013 Patient Education: Patient Medication Summary Completed 07/02/2013 Visit Plan: Continue namenda 10mg po BID Discussed aricept 06/25/2012 Appointment: Roxie Lopez WPtel: [address] [place] [address] confirmed w ACUTE ILLNESS 06/25/2012 Patient Education: Patient Medication Summary Completed 06/25/2012 Appointment: Roxie Lopez WPtel: [address] [place] [address] FOLLOW UP 05/15/2012 Patient Education: Patient Medication Summary Completed 05/15/2012 Visit Plan: Continue current meds Lab di scussed Long discussion about meds, diet, exercise and weight loss for decreasing TG and elevating HDL Add Nystatin/TAC cream to use prn 12/06/2011 Appointment: Roxie Lopez WPtel: [address] [place] [address] CHECK UP 12/06/2011 Patient Education: Patient Medication Summary Completed 12/06/2011 Visit Plan: Check fasting lab--CMP, lipi ds, PSA, PT/INR Loan deferment paperwork filled out 10/30/2010 Appointment: Roxie Lopez WPtel: [address] [place] [address] ESTABLISHED PATIENT 10/30/2010 Patient Education: Patient Medication Summary Completed 10/30/2010 Referral: Angeline Arellano WPtel: [address] [place] [address] Referral Appointment Requested Instructions Comment . Check [...]
--- OUTSIDE RECORDS SUMMARY | 2021-10-12 10:18 | XMS REPORT | CCD ---
Author Author Ronnie Lopez D.O. Organization [facility] Address [address] [place] [address] Phone Care Team Providers Care Supervisor Core Shop Name Role Phone Roxie Lopez D.O., PP Unavailable CCM Unavailable Summary Purpose Interface Exchange Insurance Providers Payer name Policy type / Coverage type Covered republican ID Effective Begin Date Effective End Date [employer] Medicare [id number] Unknown Family History Family History data not found Social History Social History Element Codes Description Effective Dates Marital status Unknown 12/06/[address]: 3066413 Former smoker 2000 12/06/2011 Allergies, Adverse Reactions, Alerts Substance Reaction Codes Entered Date Inactivated Date Status * NO KNOWN FOOD ALLERGIES Unknown 10/30/2010 No Inactiv e Date Active PENICILLINS Unknown 10/30/2010 No Inactive Date Active * NO KNOWN ENVIRONMENTAL ALLERGIES Unknown 10/30/2010 N o Inactive Date Active Problems Condition Codes Effective Dates Condition Status FLU VACCINE ICD-10: Z23 ICD-9: V04.81 10/02/2016 Active [facility] (current) use of anticoagulants ICD-10: Z79. 01 [...] 788.43 01/07/2019 Active Atherosclerotic heart disease of [place] coronary arter y without angina pectoris ICD-10: [...] Fill Instructions memantine 10 mg tablet RxNorm: 865168 TAKE 1 TABLET TWI CE DAILY (REPLACES NAMENDA XR) 06/26/2021 09/23/2021 Active escitalopram 20 mg tablet RxNorm: 008763 TAKE 1 TABLET AT BEDTIME 0 06/26/2021 09/23/2021 Active warfarin 2 mg tablet RxNorm: 438503 TAKE 1 AND 1/2 TABL ETS ON SATURDAY, SATURDAY, SATURDAY, SATURDAY AND TAKE 2 TABLETS ON SATURDAY, SATURDAY AND Saturday06/26/2021 09/23/2021 Active tamsulosin 0.4 mg capsule RxNorm: 081051 TAKE 1 CAPSULE EVERY DAY 0 06/26/2021 09/23/2021 Active carbidopa 25 mg-levodopa 100 mg tablet RxNorm: 186225 T PHAM 1 TABLET TWICE DAILY FOR TREMORS 06/26/2021 07/04/2021 Inactive Sinemet 25 mg-100 mg tablet RxNorm: 284883 Take 1 Table t(s) Oral two times a day for tremors 04/26/2021 04/26/2021 Inactive memantine 10 mg tablet RxNorm: 574311 TAKE 1 TABLET TWI CE DAILY (REPLACES NAMENDA XR) 04/12/2021 04/12/2021 Inactive warfarin 2 mg tablet RxNorm: 888059 2 Tablet(s) Oral Mo through Saturday and 1.5 tablets on Saturday/Saturday01/19/2021 No Stop Date Active tamsulosin 0.4 mg capsule RxNorm: 253369 TAKE 1 CAPSULE EVERY DAY 0 12/19/2020 12/19/2020 Inactive warfarin 2 mg tablet RxNorm: 189777 TAKE 1 AND 1/2 TABL ETS ON SATURDAY, SATURDAY, SATURDAY, SATURDAY AND TAKE 2 TABLETS ON SATURDAY, SATURDAY AND Saturday12/12/2020 01/18/2021 Inactive escitalopram 20 mg tablet RxNorm: 876936 TAKE 1 TABLET AT BEDTIME 0 11/28/2020 11/28/2020 Inactive Namenda 10 mg tablet RxNorm: 908486 TAKE 1 TABLET TWICE DAILY (REPLACES NAMENDA XR) 10/17/2020 10/17/2020 Inactive melatonin 10 mg capsule RxNorm: 137856 1 Capsule(s) Oral QD 020 No Stop Date Active tamsulosin 0.4 mg capsule RxNorm: 606900 TAKE 1 CAPSULE EVERY DAY 1 12/18/2020 Inactive warfarin 2 mg tablet RxNorm: 006625 TAKE 1 AND 1/2 TABL ETS ON SATURDAY, SATURDAY, SATURDAY, SATURDAY AND TAKE 2 TABLETS ON SATURDAY, SATURDAY AND Saturday07/12/2020 12/11/2020 Inactive warfarin 2 mg tablet RxNorm: 229975 TAKE 1 AND 1/2 TABL ETS ON SATURDAY, SATURDAY, SATURDAY, SATURDAY AND TAKE 2 TABLETS ON SATURDAY, SATURDAY AND Saturday06/27/2020 07/11/2020 Inactive Namenda 10 mg tablet RxNorm: 049933 TAKE 1 TABLET TWICE DAILY (REPLACES NAMENDA XR) 04/18/2020 10/16/2020 Inactive tamsulosin 0.4 mg capsule RxNorm: 459663 1 Capsule(s) Oral QD 02/1108/10/2020 Inactive Depakote ER 250 mg tablet,extended release RxNorm: 8124721 1 Tab let(s) Oral QPM 01/21/2020 04/20/2020 Inactive warfarin 2 mg tablet RxNorm: 421476 TAKE 1 AND 1/2 TABL ETS ON SATURDAY, SATURDAY, SATURDAY AND SATURDAY AND TAKE 2 TABLETS ON SATURDAY, SATURDAY AND Saturday12/14/2019 06/26/2020 Inactive escitalopram 20 mg tablet RxNorm: 593633 TAKE 1 TABLET AT BEDTIME 0 11/16/2019 11/27/2020 Inactive Namenda 10 mg tablet RxNorm: 844758 TAKE 1 TABLET TWICE DAILY (REPLACES NAMENDA XR) 10/08/2019 04/17/2020 Inactive tamsulosin 0.4 mg capsule RxNorm: 106899 1 Capsule(s) Oral QD 09/0202/11/2020 Inactive warfarin 2 mg tablet RxNorm: 124312 1.5 Tablet(s) PO on , , Sat, and Sun and 2 tablets on Sat, Sat, Sat07/13/2019 07/12/2019 Inactive Depakote ER 250 mg tablet,extended release RxNorm: 7403718 1 Tab let(s) PO BID 06/08/2019 09/05/2019 Inactive pravastatin 80 mg tablet RxNorm: 420586 TAKE 1 TABLET EVERY DAY 11/201809/01/2019 Inactive warfarin 2 mg tablet RxNorm: 360492 TAKE 1 AND 1/2 TABS ON SATURDAY,SATURDAY AND SATURDAY AND TAKE 2 TABS ON , , SAT AND SUN (NEED MD APPOINTMENT) 03/09/2019 07/13/2019 Inactive Namenda 10 mg tablet RxNorm: 621149 TAKE 1 TABLET TWICE DAILY (REPLACES NAMENDA XR) 02/09/2019 08/07/2019 Inactive doxepin 25 mg capsule RxNorm: 4192777 1 Capsule(s) PO QH S for sleep replaces 10mg dose 02/09/2019 04/21/2019 Inactive escitalopram 20 mg tablet RxNorm: 693832 1 Tablet(s) PO QHS 019 08/07/2019 Inactive tamsulosin 0.4 mg capsule RxNorm: 903878 1 Capsule(s) P O QPM for urinary frequency 01/07/2019 02/12/2020 Inactive divalproex 250 mg tablet,delayed release RxNorm: 5178759 1 Table t(s) PO QHS 01/07/2019 01/07/2019 Inactive doxepin 10 mg capsule RxNorm: 5594318 1-2 Capsule(s) PO QHS as n eeded for sleep 01/07/2019 02/08/2019 Inactive warfarin 2 mg tablet RxNorm: 673928 1 1/2 Tablet(s) PO MWF and 2 tablets on T Th Sat and Sun 12/29/2018 03/08/2019 Inactive metoprolol tartrate 50 mg tablet RxNorm: 344429 TAKE 1 TABLET T WICE DAILY 12/01/2018 06/30/2019 Inactive Namenda 10 mg tablet RxNorm: 043084 TAKE 1 TABLET TWICE DAILY (REPLACES NAMENDA XR) 09/22/2018 02/08/2019 Inactive warfarin 2 mg tablet RxNorm: 549146 1 1/2 Tablet(s) PO MWF and 2 tablets on T Th Sat and Sun 09/02/2018 09/01/2018 Inactive escitalopram 10 mg tablet RxNorm: 455963 1 Tablet(s) PO QHS 018 02/08/2019 Inactive pravastatin 80 mg tablet RxNorm: 964345 1 Tablet(s) PO QD 01/28/2018 10/24/2018 Inactive Namenda 10 mg tablet RxNorm: 598527 1 Tablet(s) PO BID 11/27/2017 Inactive escitalopram 10 mg tablet RxNorm: 377388 1 Tablet(s) PO QHS 018 06/09/2018 Inactive Namenda XR 28 mg capsule sprinkle,extended release RxNorm: 9 30051 TAKE ONE CAPSULE BY MOUTH ONCE DAILY 10/10/2017 11/26/2017 Inactive metoprolol tartrate 50 mg tablet RxNorm: 806645 Tablet( s) TAKE 1 TABLET TWICE DAILY 10/03/2017 09/27/2018 Inactive warfarin 2 mg tablet RxNorm: 819227 Tablet(s) TAKE 2 TA BLETS SATURDAY THROUGH SATURDAY AND 1 TABLET SATURDAY AND Saturday05/09/2017 09/02/2018 Inactive divalproex 250 mg tablet,delayed release RxNorm: 2401468 TAKE 1 TABLET TWICE DAILY 02/19/2017 01/06/2019 Inactive Namenda XR 28 mg capsule sprinkle,extended release RxNorm: 9 29510 TAKE 1 CAPSULE EVERY DAY 02/11/2017 10/09/2017 Inactive pravastatin 80 mg tablet RxNorm: 691583 1 Tablet(s) PO QD 01/21/2017 01/28/2018 Inactive Namenda XR 28 mg capsule sprinkle,extended release RxNorm: 9 24710 TAKE ONE CAPSULE BY MOUTH ONCE DAILY 09/24/2016 02/10/2017 Inactive metoprolol tartrate 50 mg tablet RxNorm: 711477 TAKE 1 TABLET T WICE DAILY 09/10/2016 10/03/2017 Inactive warfarin 2 mg tablet RxNorm: 205788 TAKE 2 TABLETS THROUGH SATURDAY AND 1 TABLET SATURDAY AND Saturday2016 05/09/2017 Inactive divalproex 250 mg tablet,delayed release RxNorm: 7846541 1 Table t(s) PO QHS 12/19/2015 12/12/2016 Inactive pravastatin 80 mg tablet RxNorm: 631135 1 Tablet(s) PO QD 12/19/2015 01/21/2017 Inactive Namenda XR 28 mg capsule sprinkle,extended release RxNorm: 9 18517 1 Capsule(s) PO QD 11/11/2015 09/23/2016 Inactive divalproex 250 mg tablet,delayed release RxNorm: 7719082 1 Table t(s) PO QHS 10/10/2015 12/19/2015 Inactive Namenda XR 28 mg capsule sprinkle,extended release RxNorm: 9 47893 1 Capsule(s) PO QD TAKE 1 CAPSULE EVERY DAY 11/09/2014 11/11/2015 Inactive Namenda XR 28 mg capsule sprinkle,ER 24hr RxNorm: 271976 1 PO QD TAKE ONE CAPSULE BY MOUTH ONCE DAILY 10/07/2014 11/09/2014 Inactive Namenda XR 28 mg capsule sprinkle,ER 24hr RxNorm: 208392 1 Caps ule(s) PO QD 11/10/2013 10/07/2014 Inactive metoprolol tartrate 50 mg tablet RxNorm: 745823 1 Tablet(s) PO BID 05/14/2013 05/08/2014 Inactive 1BID (REPLACES TOPROL) - [place] E ONE TABLET BY MOUTH TWICE DAILY (REPLACES TOPROL) Ativan 1 mg tablet RxNorm: 416063 1 Tablet(s) PO BID 05/01/201310/09 Inactive as needed for anxiety pravastatin 40 mg tablet RxNorm: 692600 1 Tablet(s) PO QD due for labs in late summer03/26/2013 11/10/2014 Inactive warfarin 2 mg tablet RxNorm: 941563 1 Tablet(s) PO Take 2 tablets by mouth Saturday through Saturday and 1 tablet on Saturday and Saturday10/07/2012 Inactive pravastatin 40 mg tablet RxNorm: 112229 1 Tablet(s) PO QD 08/13/2012 03/26/2013 Inactive metoprolol tartrate 50 mg tablet RxNorm: 797391 1 Tablet(s) PO BID 08/13/2012 05/14/2013 Inactive 1BID (REPLACES TOPROL) - [place] E ONE TABLET BY MOUTH TWICE DAILY (REPLACES TOPROL) warfarin 2 mg tablet RxNorm: 507083 1 Tablet(s) PO QD 08/13/201202/2012 Inactive warfarin 2 mg tablet RxNorm: 852040 Tablet(s) PO 11/07/2011 08/13/2012 Inactive 2QD - TAKE TWO TABLETS BY MOUTH EVERY DAY SATURDAY THROUGH SATURDAY AND 1 TABLET ON SATURDAY AND SATURDAY pravastatin 40 mg tablet RxNorm: 929966 1 Tablet(s) PO QD 10/15/2011 08/13/2012 Inactive Ativan 1 mg tablet RxNorm: 704701 1 Tablet(s) PO BID 10/01/201109/30 Active as needed for anxiety metoprolol tartrate 50 mg tablet RxNorm: 812277 1 Tablet(s) PO BID 08/27/2011 08/13/2012 Inactive 1BID (REPLACES TOPROL) - [place] E ONE TABLET BY MOUTH TWICE DAILY (REPLACES TOPROL) pravastatin 40 mg Tab RxNorm: 499140 1 Tablet(s) PO QD 07/10/201109/2011 Inactive Ativan 1 mg Tab RxNorm: 003034 1 Tablet(s) PO BID 07/02/2011 1 Active as needed for anxiety metoprolol tartrate 50 mg Tab RxNorm: 465620 1 Tablet(s ) PO BID 1BID (REPLACES TOPROL) - TAKE ONE TABLET BY MOUTH TWICE DAILY (REPLACES TOPROL) 03/12/2011 08/26/2011 Inactive Ativan 1 mg Tab RxNorm: 448743 1 Tablet(s) PO BID as needed for anxiety 02/26/2011 02/25/2011 Active warfarin 2 mg Tab RxNorm: 960734 Tablet(s) PO 2QD - T PHAM TWO TABLETS BY MOUTH EVERY DAY SATURDAY THROUGH SATURDAY AND 1 TABLET ON SATURDAY AND Saturday12/18/2010 11/07/2011 Inactive Ativan 1 mg Tab RxNorm: 552312 1 Tablet(s) PO BID PRN for anxiety 0 11/06/2010 01/06/2019 Inactive metoprolol tartrate 50 mg Tab RxNorm: 041420 1 Tablet(s ) PO BID 1BID (REPLACES TOPROL) - TAKE ONE TABLET BY MOUTH TWICE DAILY (REPLACES TOPROL) 09/11/2010 03/12/2011 Inactive Ativan 1 mg Tab RxNorm: 934174 1 Tablet(s) PO BID PRN for anxiety 1 11/06/2010 Inactive warfarin 2 mg Tab RxNorm: 484952 Tablet(s) PO 2QD - T PHAM TWO TABLETS BY MOUTH EVERY DAY SATURDAY THROUGH SATURDAY AND 1 TABLET ON SATURDAY AND Saturday07/24/2010 10/29/2010 Inactive metoprolol tartrate 50 mg Tab RxNorm: 160742 1 Tablet(s) PO QD 01/201009/11/2010 Inactive pravastatin 40 mg Tab RxNorm: 866831 1 Tablet(s) PO QD 06/06/201004/2011 Inactive Warfarin 2 mg Tab RxNorm: 176880 2 Tablet(s) PO QD 2 tablets by mouth Saturday through Saturday, and one tablet by mouth on Saturday and Saturday. 06/06/2010 07/23/2010 Inactive Ativan 1 mg Tab RxNorm: 824950 1 Tablet(s) PO QHS PRN for anxiety 0 06/06/2010 08/27/2010 Inactive Pravastatin 40 mg Tab RxNorm: 905969 1 Tablet(s) PO QD 04/14/201012/2009 Inactive Ativan 1 mg Tab RxNorm: 623523 1 Tablet(s) PO BID PRN for anxiety 0 02/23/2010 06/02/2010 Inactive Probiotic oral RxNorm: 6205 oral 04/07/2020 Active [place] 3 Natural Fish Oil Conc capsule RxNorm: 1 Capsule(s) PO QD 0 11/27/2017 Active turmeric-turmeric root extract oral RxNorm: 3577547 oral 11/27/19 18 Active magnesium oral RxNorm: 6574 oral 04/07/2020 Active Vitamin D3 5,000 unit tablet RxNorm: 273654 1 Tablet(s) PO QD 019 Active warfarin 2 mg tablet RxNorm: 901421 1 Tablet(s) PO QD 08/13/201207/2012 Inactive Ativan 1 mg Tab RxNorm: 071247 1 Tablet(s) PO BID as needed for anxiety 02/26/2011 02/25/2011 Inactive warfarin 2 mg Tab RxNorm: 446983 2 Tablet(s) PO QD saturday06/06/2012 06/05/2012 Inactive Tricor 145 mg Tab RxNorm: 909068 1 Tablet(s) PO QD 12/06/2011 012 Inactive warfarin 4 mg tablet RxNorm: 111479 Tablet(s) PO 11/27/2017 11/26/2017 Inactive warfarin 2 mg Tab RxNorm: 242484 1 Tablet(s) PO QD on saturday and saturday06/06/2012 06/05/2012 Inactive warfarin 2 mg tablet RxNorm: 623549 1.5 Tablet(s) PO on , , Sat, and Sun and 2 tablets on Sat, Sat, Sat07/13/2019 07/12/2019 Inactive pravastatin 80 mg tablet RxNorm: 869890 1 Tablet(s) PO QD 12/19/2015 12/19/2015 Inactive metoprolol tartrate 50 mg tablet RxNorm: 641363 1 Tablet(s) PO QD 1 09/01/2019 Inactive Warfarin 2 mg Tab RxNorm: 803437 Tablet(s) PO 2 table ts by mouth Saturday through Saturday, and one tablet by mouth on Saturday and Saturday. 06/06/201012/2009 Inactive Namenda 10 mg Tab RxNorm: 050425 2 Tablet(s) PO QD 07/02/2013 013 Inactive warfarin 2 mg tablet RxNorm: 305687 1 1/2 Tablet(s) PO MWF and 2 tablets on Sat and Sun 09/02/2018 09/01/2018 Inactive Ativan 1 mg Tab RxNorm: 720339 1 Tablet(s) PO BID PRN for anxiety 04/20/2010 04/19/2010 Inactive warfarin 2 mg Tab RxNorm: 131593 Tablet(s) PO take 2 tablets by mouth Sat-Sat and 1 tablet on Saturday and Saturday06/06/2012 06/05/2012 Inactive Depakote ER 250 mg tablet,extended release RxNorm: 8275951 1 Tab let(s) PO BID 11/27/2017 11/26/2017 Inactive warfarin 1 mg Tab RxNorm: 241391 1 Tablet(s) PO on Saturday and Saturday10/30/2010 [...] Code Result Date S ervice Location PT [id number] PT 24.4 Seconds 07/05/2021 Unknow n PT [id number] INR 2.2 07/05/2021 Unknown PT [id number] PT 25.2 Seconds 04/28/2021 Unknow n PT [id number] INR 2.3 04/28/2021 Unknown THYROID STIMULATING HORMONE 23035 TSH 2.271 uIU/mL 04/28/2021 Unknown COMPREHENSIVE METABOLIC 57770 AST 18 U/L 2020 Unknown COMPREHENSIVE METABOLIC 75062 ALT 9 U/L 2020 Unknown COMPREHENSIVE METABOLIC 91326 BUN 17 mg/dL 2020 Unknown COMPREHENSIVE METABOLIC 42872 ALBUMIN 3.8 g/dL 2020 Unknown COMPREHENSIVE METABOLIC 81310 CHLORIDE 108 mmol/L 04/28 Unknown COMPREHENSIVE METABOLIC 59477 Bili Total 0.7 mg/dL 04/28 Unknown COMPREHENSIVE METABOLIC 75297 ALK PHOS 76 U/L 2020 Unknown COMPREHENSIVE METABOLIC 40093 SODIUM 140 mmol/L 04/28 Unknown COMPREHENSIVE METABOLIC 83935 CREATININE 0.83 mg/dL 04/05 Unknown COMPREHENSIVE METABOLIC 94155 CALCIUM 9.5 mg/dL 2020 Unknown COMPREHENSIVE METABOLIC 26401 POTASSIUM 4.1 mmol/L 04/28 Unknown COMPREHENSIVE METABOLIC 53925 Total Protein 6.9 g/dL Unknown COMPREHENSIVE METABOLIC 88465 Glucose 106 mg/dL 2020 Unknown COMPREHENSIVE METABOLIC 26303 Bicarbonate 26 mmol/L 04/05 Unknown COMPREHENSIVE METABOLIC 38530 AGAP 6 mmol/L 2020 Unknown GFR CALC [id number] GFR Non Afr Amr >60 mL/min 04/28/2021 Un known GFR CALC [id number] GFR Afr Amr >60 mL/min 04/28/2021 Unknow n COMPLETE BLOOD COUNT [id number] WBC 4.6 10e9/L 04/28/20 21 Unknown COMPLETE BLOOD COUNT [id number] RBC 4.39 10e12/L 2020 Unknown COMPLETE BLOOD COUNT [id number] HEMOGLOBIN 14.2 g/dL 04/28/20 21 Unknown COMPLETE BLOOD COUNT [id number] HEMATOCRIT 41.1 % 04/28/20 21 Unknown COMPLETE BLOOD COUNT [id number] MCV 93.6 fL 1 Unknown COMPLETE BLOOD COUNT [id number] MCH 32.3 pg 1 Unknown COMPLETE BLOOD COUNT [id number] MCHC 34.5 g/dL 1 Unknown COMPLETE BLOOD COUNT [id number] PLATELET COUNT 198 10e9/L Unknown COMPLETE BLOOD COUNT [id number] Mean Plt Volume 9.3 fL Unknown COMPLETE BLOOD COUNT 8387450 Neut Auto 54.8 % 1 Unknown COMPLETE BLOOD COUNT [id number] Lymph Auto 33.7 % 04/28/20 21 Unknown COMPLETE BLOOD COUNT [id number] [place] Auto 9.6 % 1 Unknown COMPLETE BLOOD COUNT [id number] RDW 12.2 % 1 Unknown COMPLETE BLOOD COUNT [id number] Eos Auto 1.7 % 1 Unknown COMPLETE BLOOD COUNT [id number] Baso Auto 0.2 % 1 Unknown COMPLETE BLOOD COUNT [id number] Neutrophil Abs 2.52 10e9/L Unknown COMPLETE BLOOD COUNT [id number] Lymphocyte Abs 1.55 10e9/L Unknown COMPLETE BLOOD COUNT [id number] Monocyte Abs 0.44 10e9/L 04/05 Unknown COMPLETE BLOOD COUNT [id number] Eosinophil Abs 0.08 10e9/L Unknown COMPLETE BLOOD COUNT [id number] RDW-SD 40.9 fL Unknown COMPLETE BLOOD COUNT [id number] Basophil Abs 0.01 10e9/L 04/05 Unknown FREE T4 36921 T4 Free 0.81 ng/dL 04/28/2021 Unknown PT [id number] PT 19.8 Seconds 01/18/2021 Unknow n PT [id number] INR 1.6 01/18/2021 Unknown PT [id number] PT 18.7 Seconds 10/14/2020 Unknow n PT [id number] INR 1.5 10/14/2020 Unknown COMPREHENSIVE METABOLIC 61319 AST 17 U/L 2019 Unknown COMPREHENSIVE METABOLIC 97650 ALT 10 U/L 2019 Unknown COMPREHENSIVE METABOLIC 66679 BUN 19 mg/dL 2019 Unknown COMPREHENSIVE METABOLIC 32356 ALBUMIN 4.1 g/dL 2019 Unknown COMPREHENSIVE METABOLIC 01782 CHLORIDE 103 mmol/L 10/14 Unknown COMPREHENSIVE METABOLIC 23260 Bili Total 0.6 mg/dL 10/14 Unknown COMPREHENSIVE METABOLIC 06669 ALK PHOS 65 U/L 2019 Unknown COMPREHENSIVE METABOLIC 13451 SODIUM 141 mmol/L 10/14 Unknown COMPREHENSIVE METABOLIC 84792 CREATININE 0.77 mg/dL 10/04 Unknown COMPREHENSIVE METABOLIC 92113 CALCIUM 9.2 mg/dL 2019 Unknown COMPREHENSIVE METABOLIC 32907 POTASSIUM 4.2 mmol/L 10/14 Unknown COMPREHENSIVE METABOLIC 48569 Total Protein 6.7 g/dL Unknown COMPREHENSIVE METABOLIC 31051 Glucose 91 mg/dL 2019 Unknown COMPREHENSIVE METABOLIC 52928 Bicarbonate 28 mmol/L 10/04 Unknown COMPREHENSIVE METABOLIC 22191 AGAP 10 mmol/L 2019 Unknown FREE T4 49432 T4 Free 0.81 ng/dL 10/14/2020 Unknown HEMOGLOBIN A1C (GLYCOSYLATED) 9768734 Hgb A1c 84857-6 4.4 % 10/14/2020 Unknown HEMOGLOBIN A1C (GLYCOSYLATED) 3207841 Calc Mean Gluc 80 mg /dL 10/14/2020 Unknown COMPLETE BLOOD COUNT 3080025 WBC 5.4 10e9/L 10/14/20 20 Unknown COMPLETE BLOOD COUNT [id number] RBC 4.40 10e12/L 2019 Unknown COMPLETE BLOOD COUNT [id number] HEMOGLOBIN 14.4 g/dL 10/14/20 20 Unknown COMPLETE BLOOD COUNT [id number] HEMATOCRIT 42.4 % 10/14/20 20 Unknown COMPLETE BLOOD COUNT [id number] MCV 96.4 fL 0 Unknown COMPLETE BLOOD COUNT [id number] MCH 32.7 pg 0 Unknown COMPLETE BLOOD COUNT 7595654 MCHC 34.0 g/dL 0 Unknown COMPLETE BLOOD COUNT [id number] PLATELET COUNT 216 10e9/L 09/2020 Unknown COMPLETE BLOOD COUNT 7368207 Mean Plt Volume 9.5 fL 09/2020 Unknown COMPLETE BLOOD COUNT 3872006 Neut Auto 57.6 % 0 Unknown COMPLETE BLOOD COUNT [id number] Lymph Auto 31.5 % 10/14/20 20 Unknown COMPLETE BLOOD COUNT [id number] [place] Auto 9.0 % 0 Unknown COMPLETE BLOOD COUNT [id number] RDW 12.4 % 0 Unknown COMPLETE BLOOD COUNT 6141736 Eos Auto 1.7 % 0 Unknown COMPLETE BLOOD COUNT [id number] Baso Auto 0.2 % 0 Unknown COMPLETE BLOOD COUNT [id number] Neutrophil Abs 3.11 10e9/L Unknown COMPLETE BLOOD COUNT 5953529 Lymphocyte Abs 1.70 10e9/L Unknown COMPLETE BLOOD COUNT [id number] Monocyte Abs 0.49 10e9/L 10/04 Unknown COMPLETE BLOOD COUNT [id number] Eosinophil Abs 0.09 10e9/L Unknown COMPLETE BLOOD COUNT [id number] RDW-SD 42.4 fL 0 Unknown COMPLETE BLOOD COUNT [id number] Basophil Abs 0.01 10e9/L 10/04 Unknown THYROID STIMULATING HORMONE 31460 TSH 2.071 uIU/mL 10/14/2020 Unknown LIPID GROUP 97858 Cholesterol 217 mg/dL 10/14/2020 Unkno wn LIPID GROUP 94459 Triglyceride 108 mg/dL 10/14/2020 Unkn own LIPID GROUP 72293 HDL CHOLESTEROL 46 mg/dL 10/14/2020 U nknown LIPID GROUP 16394 Chol/HDL Ratio 4.72 ratio 10/14/2020 U nknown LIPID GROUP 70601 NON-HDL Chol 171 mg/dL 10/14/2020 Unkn own LIPID GROUP 39444 LDL Cholesterol 149 mg/dL 10/14/2020 U nknown GFR CALC 5205502 GFR Non Afr Amr >60 mL/min 10/14/2020 Un known GFR CALC 1842928 GFR Afr Amr >60 mL/min 10/14/2020 Unknow n COMPLETE BLOOD COUNT 8206249 WBC 7.6 10e9/L 04/06/20 20 Unknown COMPLETE BLOOD COUNT [id number] RBC 3.90 10e12/L 2019 Unknown COMPLETE BLOOD COUNT [id number] HEMOGLOBIN 12.0 g/dL 04/06/20 20 Unknown COMPLETE BLOOD COUNT 8374482 HEMATOCRIT 36.9 % 04/06/20 20 Unknown COMPLETE BLOOD COUNT [id number] MCV 94.6 fL 0 Unknown COMPLETE BLOOD COUNT [id number] MCH 30.8 pg 0 Unknown COMPLETE BLOOD COUNT [id number] MCHC 32.5 g/dL 0 Unknown COMPLETE BLOOD COUNT 7383287 PLATELET COUNT 257 10e9/L 01/2020 Unknown COMPLETE BLOOD COUNT 7020081 Mean Plt Volume 8.6 fL 01/2020 Unknown COMPLETE BLOOD COUNT [id number] Neut Auto 68.7 % 0 Unknown COMPLETE BLOOD COUNT 7339797 Lymph Auto 22.0 % 04/06/20 20 Unknown COMPLETE BLOOD COUNT 7984082 [place] Auto 8.3 % 0 Unknown COMPLETE BLOOD COUNT [id number] RDW 12.7 % 0 Unknown COMPLETE BLOOD COUNT 2858139 Eos Auto 0.7 % 0 Unknown COMPLETE BLOOD COUNT 7921484 Baso Auto 0.3 % 0 Unknown COMPLETE BLOOD COUNT [id number] Neutrophil Abs 5.22 10e9/L Unknown COMPLETE BLOOD COUNT 8240357 Lymphocyte Abs 1.67 10e9/L Unknown COMPLETE BLOOD COUNT [id number] Monocyte Abs 0.63 10e9/L 01/2020 Unknown COMPLETE BLOOD COUNT 8570534 Eosinophil Abs 0.05 10e9/L Unknown COMPLETE BLOOD COUNT 5056106 RDW-SD 42.6 fL 0 Unknown COMPLETE BLOOD COUNT 0752201 Basophil Abs 0.02 10e9/L 01/2020 Unknown PT [id number] PT 19.3 Seconds 04/06/2020 Unknow n PT [id number] INR 1.6 04/06/2020 Unknown COMPREHENSIVE METABOLIC 70885 AST 12 U/L 2019 Unknown COMPREHENSIVE METABOLIC 92801 ALT 7 U/L 2019 Unknown COMPREHENSIVE METABOLIC 35804 BUN 19 mg/dL 2019 Unknown COMPREHENSIVE METABOLIC 68645 ALBUMIN 3.8 g/dL 2019 Unknown COMPREHENSIVE METABOLIC 10866 CHLORIDE 103 mmol/L 04/06 Unknown COMPREHENSIVE METABOLIC 74710 Bili Total 0.4 mg/dL 04/06 Unknown COMPREHENSIVE METABOLIC 60474 ALK PHOS 78 U/L 2019 Unknown COMPREHENSIVE METABOLIC 14638 SODIUM 141 mmol/L 04/06 Unknown COMPREHENSIVE METABOLIC 72998 CREATININE 0.90 mg/dL 01/2020 Unknown COMPREHENSIVE METABOLIC 21235 CALCIUM 9.0 mg/dL 2019 Unknown COMPREHENSIVE METABOLIC 27883 POTASSIUM 3.8 mmol/L 04/06 Unknown COMPREHENSIVE METABOLIC 57811 Total Protein 6.1 g/dL Unknown COMPREHENSIVE METABOLIC 27746 Glucose 125 mg/dL 2019 Unknown COMPREHENSIVE METABOLIC 00730 Bicarbonate 27 mmol/L 01/2020 Unknown COMPREHENSIVE METABOLIC 56484 AGAP 11 mmol/L 2019 Unknown GFR CALC 9519110 GFR Non Afr Amr >60 mL/min 04/06/2020 Un known GFR CALC [id number] GFR Afr Amr >60 mL/min 04/06/2020 Unknow n PT [id number] PT 25.2 Seconds 09/02/2019 Unknow n PT [id number] INR 2.2 09/02/2019 Unknown PT [id number] PT 26.5 Seconds 04/22/2019 Unknow n PT [id number] INR 2.3 04/22/2019 Unknown FERRITIN 06231 FERRITIN 240.3 ng/mL 04/22/2019 Unknown COMPLETE BLOOD COUNT 2714794 WBC 7.7 10e9/L 04/22/20 19 Unknown COMPLETE BLOOD COUNT 9214743 RBC 4.19 10e12/L 2018 Unknown COMPLETE BLOOD COUNT [id number] HEMOGLOBIN 13.5 g/dL 04/22/20 19 Unknown COMPLETE BLOOD COUNT [id number] HEMATOCRIT 39.6 % 04/22/20 19 Unknown COMPLETE BLOOD COUNT [id number] MCV 94.5 fL 9 Unknown COMPLETE BLOOD COUNT 6673383 MCH 32.2 pg 9 Unknown COMPLETE BLOOD COUNT 0569677 MCHC 34.1 g/dL 9 Unknown COMPLETE BLOOD COUNT 6829158 PLATELET COUNT 235 10e9/L Unknown COMPLETE BLOOD COUNT 3332236 Mean Plt Volume 9.8 fL Unknown COMPLETE BLOOD COUNT 0605669 Neut Auto 68.5 % 9 Unknown COMPLETE BLOOD COUNT 4083911 Lymph Auto 22.4 % 04/22/20 19 Unknown COMPLETE BLOOD COUNT 6589392 [place] Auto 8.3 % 9 Unknown COMPLETE BLOOD COUNT [id number] RDW 12.4 % 9 Unknown COMPLETE BLOOD COUNT 6445755 Eos Auto 0.5 % 9 Unknown COMPLETE BLOOD COUNT 1813405 Baso Auto 0.3 % 9 Unknown COMPLETE BLOOD COUNT [id number] Neutrophil Abs 5.27 10e9/L Unknown COMPLETE BLOOD COUNT [id number] Lymphocyte Abs 1.72 10e9/L Unknown COMPLETE BLOOD COUNT [id number] Monocyte Abs 0.64 10e9/L 04/04 Unknown COMPLETE BLOOD COUNT [id number] Eosinophil Abs 0.04 10e9/L Unknown COMPLETE BLOOD COUNT [id number] RDW-SD 41.6 fL 9 Unknown COMPLETE BLOOD COUNT [id number] Basophil Abs 0.02 10e9/L 04/04 Unknown IRON [id number] Iron 95 ug/dL 04/22/2019 Unknown GFR CALC [id number] GFR Non Afr Amr >60 mL/min 01/05/2019 Un known GFR CALC [id number] GFR Afr Amr >60 mL/min 01/05/2019 Unknow n COMPREHENSIVE METABOLIC 75183 AST 15 U/L 2018 Unknown COMPREHENSIVE METABOLIC 43431 ALT 11 U/L 2018 Unknown COMPREHENSIVE METABOLIC 94404 BUN 16 mg/dL 2018 Unknown COMPREHENSIVE METABOLIC 53934 ALBUMIN 3.9 g/dL 2018 Unknown COMPREHENSIVE METABOLIC 55422 CHLORIDE 106 mmol/L 01/05 Unknown COMPREHENSIVE METABOLIC 47579 Bili Total 0.7 mg/dL 01/05 Unknown COMPREHENSIVE METABOLIC 59326 ALK PHOS 50 U/L 2018 Unknown COMPREHENSIVE METABOLIC 34221 SODIUM 138 mmol/L 01/05 Unknown COMPREHENSIVE METABOLIC 75302 CREATININE 0.74 mg/dL 02/2019 Unknown COMPREHENSIVE METABOLIC 65551 CALCIUM 9.0 mg/dL 2018 Unknown COMPREHENSIVE METABOLIC 34056 POTASSIUM 4.3 mmol/L 01/05 Unknown COMPREHENSIVE METABOLIC 70229 Total Protein 6.4 g/dL Unknown COMPREHENSIVE METABOLIC 70302 Glucose 114 mg/dL 2018 Unknown COMPREHENSIVE METABOLIC 25496 Bicarbonate 26 mmol/L 02/2019 Unknown COMPREHENSIVE METABOLIC 44197 AGAP 6 mmol/L 2018 Unknown COMPLETE BLOOD COUNT [id number] WBC 5.5 10e9/L 01/06/20 19 Unknown COMPLETE BLOOD COUNT [id number] RBC 4.27 10e12/L 2018 Unknown COMPLETE BLOOD COUNT [id number] HEMOGLOBIN 14.0 g/dL 01/06/20 19 Unknown COMPLETE BLOOD COUNT [id number] HEMATOCRIT 40.6 % 01/06/20 19 Unknown COMPLETE BLOOD COUNT [id number] MCV 95.1 fL 9 Unknown COMPLETE BLOOD COUNT [id number] MCH 32.8 pg 9 Unknown COMPLETE BLOOD COUNT [id number] MCHC 34.5 g/dL 9 Unknown COMPLETE BLOOD COUNT [id number] PLATELET COUNT 211 10e9/L 02/2019 Unknown COMPLETE BLOOD COUNT [id number] Mean Plt Volume 9.8 fL 02/2019 Unknown COMPLETE BLOOD COUNT [id number] Neut Auto 64.7 % 9 Unknown COMPLETE BLOOD COUNT [id number] Lymph Auto 24.3 % 01/06/20 19 Unknown COMPLETE BLOOD COUNT [id number] [place] Auto 9.7 % 9 Unknown COMPLETE BLOOD COUNT [id number] RDW 12.2 % 9 Unknown COMPLETE BLOOD COUNT [id number] Eos Auto 1.1 % 9 Unknown COMPLETE BLOOD COUNT [id number] Baso Auto 0.2 % 9 Unknown COMPLETE BLOOD COUNT [id number] Neutrophil Abs 3.56 10e9/L Unknown COMPLETE BLOOD COUNT [id number] Lymphocyte Abs 1.34 10e9/L Unknown COMPLETE BLOOD COUNT [id number] Monocyte Abs 0.53 10e9/L 02/2019 Unknown COMPLETE BLOOD COUNT [id number] Eosinophil Abs 0.06 10e9/L Unknown COMPLETE BLOOD COUNT [id number] RDW-SD 41.3 fL 9 Unknown COMPLETE BLOOD COUNT [id number] Basophil Abs 0.01 10e9/L 02/2019 Unknown LIPID GROUP 69545 Cholesterol 145 mg/dL 01/05/2019 Unkno wn LIPID GROUP 43174 Triglyceride 153 mg/dL 01/05/2019 Unkn own LIPID GROUP 70380 HDL CHOLESTEROL 39 mg/dL 01/05/2019 U nknown LIP[facility] GROUP 40164 Chol/HDL Ratio 3.72 ratio 01/05/2019 U nknown L[facility] GROUP 93338 NON-HDL Chol 106 mg/dL 01/05/2019 Unkn own L[facility] GROUP 55058 LDL Cholesterol 75 mg/dL 01/05/2019 U nknown PT [id number] PT 30.5 Seconds 12/15/2018 Unknow n PT [id number] INR 2.9 12/15/2018 Unknown PT [id number] PT 17.2 Seconds 09/08/2018 Unknow n PT 8269224 INR 1.4 09/08/2018 Unknown LIPID GROUP 33799 Cholesterol 190 mg/dL 07/08/2018 Unkno wn L[facility] GROUP 90463 Triglyceride 402 mg/dL 07/08/2018 Unkn own [facility] 44593 HDL CHOLESTEROL 36 mg/dL 07/08/2018 U nknown [facility] 85371 Chol/HDL Ratio 5.28 ratio 07/08/2018 U nknown LIP[facility] GROUP 09552 NON-HDL Chol 154 mg/dL 07/08/2018 Unkn own [facility] 52959 LDL Cholesterol N/A Trig >400 018 Unknown GFR CALC 0762881 GFR Non Afr Amr >60 mL/min 07/08/2018 Un known GFR CALC 9429585 GFR Afr Amr >60 mL/min 07/08/2018 Unknow n COMPLETE BLOOD COUNT [id number] WBC 5.0 10e9/L 07/08/20 18 Unknown COMPLETE BLOOD COUNT [id number] RBC 4.08 10e12/L 2017 Unknown COMPLETE BLOOD COUNT [id number] HEMOGLOBIN 13.3 g/dL 07/08/20 18 Unknown COMPLETE BLOOD COUNT [id number] HEMATOCRIT 38.6 % 07/08/20 18 Unknown COMPLETE BLOOD COUNT [id number] MCV 94.6 fL 8 Unknown COMPLETE BLOOD COUNT [id number] MCH 32.6 pg 8 Unknown COMPLETE BLOOD COUNT [id number] MCHC 34.5 g/dL 8 Unknown COMPLETE BLOOD COUNT [id number] PLATELET COUNT 205 10e9/L 02/2018 Unknown COMPLETE BLOOD COUNT [id number] Mean Plt Volume 9.8 fL 02/2018 Unknown COMPLETE BLOOD COUNT [id number] Neut Auto 52.8 % 8 Unknown COMPLETE BLOOD COUNT 6494902 Lymph Auto 33.2 % 07/08/20 18 Unknown COMPLETE BLOOD COUNT 9201481 [place] Auto 11.6 % 8 Unknown COMPLETE BLOOD COUNT 1181296 RDW 12.5 % 8 Unknown COMPLETE BLOOD COUNT 4973506 Eos Auto 2.0 % 8 Unknown COMPLETE BLOOD COUNT 9431672 Baso Auto 0.4 % 8 Unknown COMPLETE BLOOD COUNT [id number] Neutrophil Abs 2.64 10e9/L Unknown COMPLETE BLOOD COUNT 4129009 Lymphocyte Abs 1.66 10e9/L Unknown COMPLETE BLOOD COUNT [id number] Monocyte Abs 0.58 10e9/L 02/2018 Unknown COMPLETE BLOOD COUNT [id number] Eosinophil Abs 0.10 10e9/L Unknown COMPLETE BLOOD COUNT [id number] RDW-SD 41.8 fL 8 Unknown COMPLETE BLOOD COUNT [id number] Basophil Abs 0.02 10e9/L 02/2018 Unknown PT [id number] PT 32.9 Seconds 07/08/2018 Unknow n PT [id number] INR 3.2 07/08/2018 Unknown PT [id number] PT TNP:Duplicate Order 8 Unknown PT 3771200 INR TNP:Duplicate Order 8 Unknown COMPREHENSIVE METABOLIC 02491 AST TNP:Duplicate Or grace 07/08/2018 Unknown COMPREHENSIVE METABOLIC 69432 ALT TNP:Duplicate Or grace 07/08/2018 Unknown COMPREHENSIVE METABOLIC 87300 BUN TNP:Duplicate Or grace 07/08/2018 Unknown COMPREHENSIVE METABOLIC 77554 ALBUMIN TNP:Duplicate Or grace 07/08/2018 Unknown COMPREHENSIVE METABOLIC 61126 CHLORIDE TNP:Duplicate Or grace 07/08/2018 Unknown COMPREHENSIVE METABOLIC 25994 Bili Total TNP:Duplicate O rder 07/08/2018 Unknown COMPREHENSIVE METABOLIC 47331 ALK PHOS TNP:Duplicate Or grace 07/08/2018 Unknown COMPREHENSIVE METABOLIC 42254 SODIUM TNP:Duplicate Or grace 07/08/2018 Unknown COMPREHENSIVE METABOLIC 41150 CREATININE TNP:Duplicate O rder 07/08/2018 Unknown COMPREHENSIVE METABOLIC 79586 CALCIUM TNP:Duplicate Or grace 07/08/2018 Unknown COMPREHENSIVE METABOLIC 11648 POTASSIUM TNP:Duplicate Or grace 07/08/2018 Unknown COMPREHENSIVE METABOLIC 90542 Total Protein TNP:Duplicat e Order 07/08/2018 Unknown COMPREHENSIVE METABOLIC 65105 Glucose TNP:Duplicate Or grace 07/08/2018 Unknown COMPREHENSIVE METABOLIC 73433 Bicarbonate TNP:Duplicate Order 07/08/2018 Unknown COMPREHENSIVE METABOLIC 79060 AGAP TNP:Duplicate Or grace 07/08/2018 Unknown COMPREHENSIVE METABOLIC 22837 AST 17 U/L 2017 Unknown COMPREHENSIVE METABOLIC 74828 ALT 12 U/L 2017 Unknown COMPREHENSIVE METABOLIC 92317 BUN 20 mg/dL 2017 Unknown COMPREHENSIVE METABOLIC 89853 ALBUMIN 4.0 g/dL 2017 Unknown COMPREHENSIVE METABOLIC 32436 CHLORIDE 107 mmol/L 07/08 Unknown COMPREHENSIVE METABOLIC 54502 Bili Total 0.3 mg/dL 07/08 Unknown COMPREHENSIVE METABOLIC 09986 ALK PHOS 58 U/L 2017 Unknown COMPREHENSIVE METABOLIC 09562 SODIUM 139 mmol/L 07/08 Unknown COMPREHENSIVE METABOLIC 39195 CREATININE 0.72 mg/dL 02/2018 Unknown COMPREHENSIVE METABOLIC 03414 CALCIUM 7.8 mg/dL 2017 Unknown COMPREHENSIVE METABOLIC 06088 POTASSIUM 4.1 mmol/L 07/08 Unknown COMPREHENSIVE METABOLIC 61173 Total Protein 6.2 g/dL Unknown COMPREHENSIVE METABOLIC 95729 Glucose 107 mg/dL 2017 Unknown COMPREHENSIVE METABOLIC 33708 Bicarbonate 22 mmol/L 02/2018 Unknown COMPREHENSIVE METABOLIC 22852 AGAP 10 mmol/L 2017 Unknown GFR CALC 9994156 GFR Non Afr Amr >60 mL/min 11/28/2017 Un known GFR CALC 3767363 GFR Afr Amr >60 mL/min 11/28/2017 Unknow n THYROID STIMULATING HORMONE 40354 TSH 4.029 uIU/mL 11/28/2017 Unknown LIPID GROUP 54610 Cholesterol 181 mg/dL 11/28/2017 Unkno wn LIPID GROUP 78856 Triglyceride 193 mg/dL 11/28/2017 Unkn own LIPID GROUP 48841 HDL CHOLESTEROL 36 11/28/2017 U nknown LIPID GROUP 66189 Chol/HDL Ratio 5.03 ratio 11/28/2017 U nknown LIPID GROUP 95399 NON-HDL Chol 145 mg/dL 11/28/2017 Unkn own LIPID GROUP 54686 LDL Cholesterol 106 mg/dL 11/28/2017 U nknown PT 1611760 PT 22.2 Seconds 11/28/2017 Unknow n PT 3489508 INR 2.0 11/28/2017 Unknown COMPREHENSIVE METABOLIC 09718 AST 19 U/L 2017 Unknown COMPREHENSIVE METABOLIC 62326 ALT 16 U/L 2017 Unknown COMPREHENSIVE METABOLIC 71400 BUN 22 mg/dL 2017 Unknown COMPREHENSIVE METABOLIC 03227 ALBUMIN 4.1 g/dL 2017 Unknown COMPREHENSIVE METABOLIC 21322 CHLORIDE 108 mmol/L 11/28 Unknown COMPREHENSIVE METABOLIC 71789 Bili Total 0.5 mg/dL 11/28 Unknown COMPREHENSIVE METABOLIC 18728 ALK PHOS 53 U/L 2017 Unknown COMPREHENSIVE METABOLIC 87161 SODIUM 141 mmol/L 11/28 Unknown COMPREHENSIVE METABOLIC 02992 CREATININE 0.83 mg/dL 11/05 Unknown COMPREHENSIVE METABOLIC 74662 CALCIUM 9.1 mg/dL 2017 Unknown COMPREHENSIVE METABOLIC 90979 POTASSIUM 4.6 mmol/L 11/28 Unknown COMPREHENSIVE METABOLIC 08147 Total Protein 6.5 g/dL Unknown COMPREHENSIVE METABOLIC 61103 Glucose 106 mg/dL 2017 Unknown COMPREHENSIVE METABOLIC 73768 Bicarbonate 26 mmol/L 11/05 Unknown COMPREHENSIVE METABOLIC 72206 AGAP 7 mmol/L 2017 Unknown COMPLETE BLOOD COUNT 2992314 WBC 5.1 10e9/L 11/28/19 18 Unknown COMPLETE BLOOD COUNT [id number] RBC 4.22 10e12/L 2017 Unknown COMPLETE BLOOD COUNT 0384175 HEMOGLOBIN 13.5 g/dL 11/28/19 18 Unknown COMPLETE BLOOD COUNT 3959099 HEMATOCRIT 39.1 % 11/28/19 18 Unknown COMPLETE BLOOD COUNT 0000518 MCV 92.7 fL 8 Unknown COMPLETE BLOOD COUNT 6197898 MCH 32.0 pg 8 Unknown COMPLETE BLOOD COUNT 9883678 MCHC 34.5 g/dL 8 Unknown COMPLETE BLOOD COUNT 2454213 PLATELET COUNT 226 10e9/L Unknown COMPLETE BLOOD COUNT 0038721 Mean Plt Volume 9.6 fL Unknown COMPLETE BLOOD COUNT 7386437 Neut Auto 49.5 % 8 Unknown COMPLETE BLOOD COUNT 1665658 Lymph Auto 35.3 % 11/28/19 18 Unknown COMPLETE BLOOD COUNT 8712864 [place] Auto 12.4 % 8 Unknown COMPLETE BLOOD COUNT 7424792 RDW 12.4 % 8 Unknown COMPLETE BLOOD COUNT 7932606 Eos Auto 2.2 % 8 Unknown COMPLETE BLOOD COUNT 6243659 Baso Auto 0.6 % 8 Unknown COMPLETE BLOOD COUNT 7675869 Neutrophil Abs 2.52 10e9/L Unknown COMPLETE BLOOD COUNT 8373142 Lymphocyte Abs 1.80 10e9/L Unknown COMPLETE BLOOD COUNT [id number] Monocyte Abs 0.63 10e9/L 11/05 Unknown COMPLETE BLOOD COUNT [id number] Eosinophil Abs 0.11 10e9/L Unknown COMPLETE BLOOD COUNT [id number] RDW-SD 41.2 fL 8 Unknown COMPLETE BLOOD COUNT [id number] Basophil Abs 0.03 10e9/L 11/05 Unknown Procedures Procedure Codes Date FLU VACC PRSV FREE INC ANTIG 65 AND OLDER CPT-4: 24611 08/18/2021 FLU VACC PRSV FREE INC ANTIG 65 AND OLDER CPT-4: 19449 08/18/2021 ADMIN INFLUENZA VIRUS VAC CPT-4: G0008 08/18/2021 ROUTINE VENIPUNCTURE CPT-4: 01900 07/05/2021 PROTHROMBIN TIME CPT-4: 29680 07/05/2021 PPPS, subseq visit CPT-4: G0439 10/12/2020 ROUTINE VENIPUNCTURE CPT-4: 75397 04/06/2020 COMPREHEN METABOLIC PANEL CPT-4: 96867 04/06/2020 COMPLETE CBC W/AUTO DIFF WBC CPT-4: 43477 04/06/2020 PROTHROMBIN TIME CPT-4: 67243 04/06/2020 PPPS, subseq visit CPT-4: G0439 09/02/2019 ROUTINE VENIPUNCTURE CPT-4: 08249 09/02/2019 PROTHROMBIN TIME CPT-4: 82194 09/02/2019 FLU VACC PRSV FREE INC ANTIG 65 AND OLDER CPT-4: 16837 08/20/2018 PNEUMOCOCCAL VACC 23 BRIDGET IM CPT-4: 11330 08/20/2018 ADMIN INFLUENZA VIRUS VAC CPT-4: G0008 08/20/2018 ADMIN PNEUMOCOCCAL VACCINE CPT-4: G0009 08/20/2018 PPPS, subseq visit CPT-4: G0439 11/27/2017 FLU VACC PRSV FREE INC ANTIG 65 AND OLDER CPT-4: 35601 08/14/2017 PNEUMOCOCCAL VACC 13 BRIDGET IM CPT-4: 48407 08/14/2017 ADMIN INFLUENZA VIRUS VAC CPT-4: G0008 08/14/2017 ADMIN PNEUMOCOCCAL VACCINE CPT-4: G0009 08/14/2017 FLU VACC PRSV FREE INC ANTIG 65 AND OLDER CPT-4: 10043 10/03/2016 ADMIN INFLUENZA VIRUS VAC CPT-4: G0008 10/03/2016 PPPS, subseq visit CPT-4: G0439 10/10/2015 FLUZONE, 5ML (Medicare) CPT-4: Q2038 09/01/2014 ADMIN INFLUENZA VIRUS VAC CPT-4: G0008 09/01/2014 Vital Signs Date Vital 07/05/2021 Blood Pressure 1: 122/80 Code: 8480-6 Heart Rate 1: 92 bpm Respiratory Rate: 20 bpm SpO2: 96% Temperature: 36.8 (C) / 98.2 (F) We ight: 207 lbs Code: 35515-4 04/26/2021 Blood Pressure 1: 126/82 Code: 8480-6 Heart Rate 1: 104 bpm Respiratory Rate: 20 bpm SpO2: 96% Temperature: 36.7 (C) / 98.1 (F) We ight: 212 lbs Code: 47498-3 10/12/2020 Blood Pressure 1: 104/68 Code: 8480-6 BMI: 31.6 Code: 11055-5 Heart Rate 1: 96 bpm Height: 5'7" Code: 8302-2 Respiratory Rate: 20 bpm SpO2: 95% Temperature: 36.9 (C) / 98.5 (F) Weight: 202 lbs Code: 27693-6 07/13/2020 Blood Pressure 1: 128/72 Code: 8480-6 Heart Rate 1: 76 bpm Respiratory Rate: 18 bpm SpO2: 97% Temperature: 36.3 (C) / 97.3 (F) We ight: 190 lbs Code: 41985-4 04/06/2020 Blood Pressure 1: 106/68 Code: 8480-6 BMI: 29.1 Code: 22502-2 Heart Rate 1: 96 bpm Height: 5'7" Code: 8302-2 Respiratory Rate: 20 bpm SpO2: 96% Temperature: 36.8 (C) / 98.2 (F) Weight: 186 lbs Code: 70807-6 09/02/2019 Blood Pressure 1: 94/50 Code: 8480-6 BMI: 29.8 C ode: 19401-0 Heart Rate 1: 68 bpm Height: 5'7" Code: 8302-2 Respiratory Rate: 20 bpm SpO2: 96% Temperature: 36.6 (C) / 97.9 (F) Weight: 190 lbs Code: 39806-7 07/01/2019 Blood Pressure 1: 112/60 Code: 8480-6 Heart Rate 1: 88 bpm Respiratory Rate: 20 bpm SpO2: 94% Temperature: 36.8 (C) / 98.2 (F) We ight: 201 lbs Code: 59542-0 05/27/2019 Blood Pressure 1: 104/50 Code: 8480-6 Heart Rate 1: 62 bpm SpO2: 95% Temperature: 36.3 (C) / 97.4 (F) Weight: 204 lbs Code: 42687-9 04/22/2019 Blood Pressure 1: 112/72 Code: 8480-6 Heart Rate 1: 64 bpm Respiratory Rate: 20 bpm SpO2: 95% Temperature: 36.8 (C) / 98.2 (F) We ight: 207 lbs Code: 79825-9 02/09/2019 Blood Pressure 1: 104/60 Code: 8480-6 Heart Rate 1: 72 bpm Respiratory Rate: 20 bpm SpO2: 95% Temperature: 37.1 (C) / 98.8 (F) We ight: 216 lbs Code: 02160-3 01/07/2019 Blood Pressure 1: 122/74 Code: 8480-6 Heart Rate 1: 96 bpm Respiratory Rate: 20 bpm SpO2: 96% Temperature: 36.7 (C) / 98.1 (F) We ight: 219 lbs Code: 21558-8 07/09/2018 Blood Pressure 1: 118/65 Code: 8480-6 Heart Rate 1: 62 bpm SpO2: 94% Temperature: 36.2 (C) / 97.1 (F) Weight: 237 lbs Code: 15766-5 11/27/2017 Blood Pressure 1: 124/70 Code: 8480-6 BMI: 35.2 Code: 45297-1 Heart Rate 1: 64 bpm Height: 5'8" Code: 8302-2 Respiratory Rate: 20 bpm SpO2: 94% Temperature: 36.9 (C) / 98.5 (F) Weight: 235 lbs Code: 99051-5 10/10/2015 Blood Pressure 1: 126/78 Code: 8480-6 BMI: 36.0 Code: 95773-3 Heart Rate 1: 72 bpm Height: 5'8" Code: 8302-2 Respiratory Rate: 20 bpm Temperatu re: 36.9 (C) / 98.4 (F) Weight: 240 lbs Code: 82165-5 09/01/2014 Blood Pressure 1: 114/70 Code: 8480-6 BMI: 35.4 Code: 95355-9 Heart Rate 1: 76 bpm Height: 5'8" Code: 8302-2 Respiratory Rate: 20 bpm Temperatu re: 36.7 (C) / 98.1 (F) Weight: 236 lbs Code: 79150-4 07/02/2013 Blood Pressure 1: 124/90 Code: 8480-6 BMI: 33.7 Code: 94211-5 Heart Rate 1: 76 bpm Height: 5'8" Code: 8302-2 Respiratory Rate: 20 bpm Temperatu re: 36.6 (C) / 97.8 (F) Weight: 225 lbs Code: 92652-2 06/25/2012 Blood Pressure 1: 144/100 Code: 8480-6 BMI: 34.5 Code: 49068-2 Heart Rate 1: 76 bpm Height: 5'8" Code: 8302-2 Respiratory Rate: 20 bpm Temperatu re: 36.6 (C) / 97.9 (F) Weight: 230 lbs Code: 66609-1 05/15/2012 Blood Pressure 1: 112/70 Code: 8480-6 BMI: 34.6 Code: 69569-7 Heart Rate 1: 76 bpm Height: 5'8" Code: 8302-2 Respiratory Rate: 20 bpm Temperatu re: 37.0 (C) / 98.6 (F) Weight: 231 lbs Code: 12551-0 12/06/2011 Blood Pressure 1: 142/90 Code: 8480-6 BMI: 35.4 Code: 46622-7 Heart Rate 1: 72 bpm Height: 5'8" Code: 8302-2 Respiratory Rate: 20 bpm Temperatu re: 36.9 (C) / 98.4 (F) Weight: 236 lbs Code: 68931-2 10/30/2010 Blood Pressure 1: 114/78 Code: 8480-6 Heart Rate 1: 76 bpm Temperature: 36.3 (C) / 97.4 (F) Weight: 228 lbs Code: 52878-9 Functional Status No Functional Status data Reason [...] Z23] [facility] CPT-4: 55253 08/18/2021 ([id number]) OFFICE/OUTPATIENT VISIT EST Diagnosis: Parkinson disease[ICD10: G20] 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[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: Z79.01] Roxie LOPEZ DO [facility] CPT-4: 55342 07/05/2021 ([id number]) OFFICE/OUTPATIENT VISIT EST Diagnosis: Parkinson disease[ICD10: G20] Diagnosis: Dementia[ICD10: F03.90] Roxie MOSQUERA DO [facility] CPT-4: 78485 04/26/2021 ([id number]) OFFICE/OUTPATIENT VISIT EST Diagnosis: 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] Diagnosis: 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: G30.9] Roxie LOPEZ DO [facility] CPT-4: 47663 07/13/2020 ([id number]) OFFICE/OUTPATIENT VISIT EST Diagnosis: Alzheimer's disease, unspecified[ICD10: G30.9] Roxie LOPEZ DO [facility] CPT-4: 49093 04/06/2020 ([id number]) OFFICE/OUTPATIENT VISIT EST Diagnosis: Alzheimer's disease with late onset[ICD10: G30.1] Diagnosis: Generalized anxiety disorder[ICD10: F41.1] Diagnosis: Unspecified dementia with behavioral disturbance[ICD10: F03.91] Roxie LOPEZ DO [facility] CPT-4: 18844 07/01/2019 ([id number]) OFFICE/OUTPATIENT VISIT EST Diagnosis: Alzheimer's disease with late onset[ICD10: G30.1] Diagnosis: Abnormal weight loss[ICD10: R63.4] Diagnosis: Essential (primary) hypertension[ICD10: I10] Diagnosis: Melena[ICD10: K92.1] Diagnosis: Unspecified dementia with behavioral disturbance[ICD10: F03.91] Diagnosis: Spontaneous ecchymoses[ICD10: R23.3] Roxie LOPEZ [place] [facility] CPT-4: 75338 05/27/2019 ([id number]) OFFICE/OUTPATIENT VISIT EST Diagnosis: 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] Diagnosis: Alzheimer's disease with late onset[ICD10: G30.1] Diagnosis: Melena[ICD10: K92.1] Diagnosis: Abnormal weight loss[ICD10: R63.4] Roxie LOPEZ [facility] CPT-4: 74651 04/22/2019 ([id number]) OFFICE/OUTPATIENT VISIT EST Diagnosis: 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] Diagnosis: Slow transit constipation[ICD10: K59.01] Diagnosis: Unspecified dementia with behavioral disturbance[ICD10: F03.91] Roxie LOPEZ [facility] CPT-4: 72065 02/09/2019 ([id number]) OFFICE/OUTPATIENT VISIT EST Diagnosis: Alzheimer's disease with late onset[ICD10: G30.1] Diagnosis: 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] Diagnosis: Nocturia[ICD10: R35.1] Diagnosis: Constipation, unspecified[ICD10: K59.00] Roxie LOPEZ [facility] CPT-4: 14106 01/07/2019 ([id number]) NURSE/OUTPATIENT VISIT EST Diagnosis: FLU VACCINE[ICD10: Z23] Diagnosis: PNEUMOCOCCAL VACCINE[ICD10: Z23] Roxie LOPEZ [facility] CPT-4: 56896 08/20/2018 ([id number]) OFFICE/OUTPATIENT VISIT EST Diagnosis: Mixed hyperlipidemia[ICD10: E78.2] Diagnosis: Essential (primary) hypertension[ICD10: I10] Diagnosis: Alzheimer's disease, unspecified[ICD10: G30.9] Roxie LOPEZ [facility] CPT-4: 41466 07/09/2018 ([id number]) OFFICE/OUTPATIENT VISIT EST Diagnosis: PNEUMOCOCCAL VACCINE[ICD10: Z23] Diagnosis: FLU VACCINE[ICD10: Z23] Roxie BRYSON [facility] CPT-4: 40928 08/14/2017 ([id number]) OFFICE/OUTPATIENT VISIT EST Diagnosis: FLU VACCINE[ICD10: Z23] Roxie BRYSON [facility] CPT-4: 54236 10/03/2016 ([id number]) OFFICE/OUTPATIENT VISIT EST Diagnosis: HYPERTENSION[ICD9: 401.9] Diagnosis: HYPERLIPIDEMIA NEC/NOS[ICD9: 272.4] Diagnosis: MEMORY LOSS[ICD9: 780.93] Diagnosis: - I - ANXIETY STATE NOS[ICD9: 300.00] Diagnosis: FLU VACCINE[ICD10: Z23] Roxie FAUSTIN RmDiane BRAYDON ER [facility] CPT-4: 41548 09/01/2014 OFFICE/OUTPATIENT VISIT EST Diagnosis: HYPERTENSION[ICD9: 401.9] Diagnosis: CAD[ICD9: 414.00] Diagnosis: HYPERLIPIDEMIA NEC/NOS[ICD9: 272.4] Diagnosis: MEMORY LOSS[ICD9: 780.93] Diagnosis: ANXIETY STATE NOS[ICD9: 300.00] Diagnosis: Testicular pain[ICD9: 608.9] Roxie FAUSTIN RmDiane JULIO [facility] CPT-4: 34603 07/02/2013 ([id number]) OFFICE/OUTPATIENT VISIT EST Diagnosis: MEMORY LOSS[ICD9: 780.93] Roxie FAUSTIN RmDiane DONNA SIMMONS [facility] CPT-4: 25106 06/25/2012 ([id number]) OFFICE/OUTPATIENT VISIT EST Diagnosis: HYPERLIPIDEMIA NEC/NOS[ICD9: 272.4] Diagnosis: HYPERTENSION[ICD9: 401.9] Diagnosis: CAD[ICD9: 414.00] Diagnosis: MEMORY LOSS[ICD9: 780.93] Roxie FAUSTIN RmDiane DONNA SIMMONS [facility] CPT-4: 76149 05/15/2012 PER PM REEVAL EST PAT 65+ YR Diagnosis: ROUTINE MEDICAL EXAM[ICD9: V70.0] Diagnosis: HYPERLIPIDEMIA NEC/NOS[ICD9: 272.4] Diagnosis: HYPERTENSION[ICD9: 401.9] Diagnosis: CAD[ICD9: 414.00] Diagnosis: Seborrheic dermatitis[ICD9: 690.10] Roxie PERRY RmDiane JULIO [facility] CPT-4: 20044 12/06/2011 ([id number]) OFFICE/OUTPATIENT VISIT, EST Roxie GENTILE RmDiane JULIO [employer] [facility] CPT-4: 76505 10/30/2010 Plan of Care Planned Activity Notes Codes Status Date Visit Diagnosis Plan: Parkinson disease Discussion: In crease sinemet 25/100mg 2po BID Call in 1month ICD-9 : 332.0 ICD-10 : G20 07/05/2021 Visit Diagnosis Plan: [facility] (current) use of antic oagulants Discussion: PT/INR drawn ICD-9 : V58.61 ICD-10 : Z79.01 07/05/2021 Appointment: Roxie Lopeztel: [address] [place] [address] [place] FOLLOW UP 07/05/2021 Visit Diagnosis Plan: Parkinson disease Discussion: Tr ial of sinemet 25/100mg po BID Fwup 2mos ICD-9 : 332.0 ICD-10 : G20 04/26/2021 Appointment: Roxie Lopez WPtel: [address] [place], [place] [phone] [place] FOLLOW UP 04/26/2021 Appointment: Roxie Lopeztel: [address] [place] [address] [place] CANCELED 01/11/2021 Visit Diagnosis Plan: Encounter for [facility] adult medical examination without abnormal [...] ICD-10 : G30.1 10/12/2020 Visit Diagnosis 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: 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 Discussion: Update PT/INR ICD-9 : V58.61 ICD-10 : Z79.01 10/12/2020 Appointment: Roxie Lopeztel: [address] [place], [place] [phone] [place] Annual Well Visit 10/12/2020 Visit Diagnosis [...] : F02.81 07/13/2020 Appointment: Roxie Lopez WPtel: [address] [place], [place] [phone] [place] FOLLOW UP 07/13/2020 Care Plan: PT Pending 06/27/2020 Visit Diagnosis Plan: Alzheimer's disease, unspecified Discussion: Worsening has started OTC supplements Inquiring about meals on wheels Follow Up: 3 months ICD-9 : 331.0 ICD-10 : G30.9 04/06/2020 Appointment: Roxie Lopez WPtel: [facility] [place] FOLLOW UP 04/06/2020 Care Plan: Referral Order SNOMED-CT : [id number] [phone] Pending 04/06/2020 Appointment: Roxie Lopez WPtel: [address] [place], [place] [phone] [place] RESCHEDULED 02/24/2020 Care Plan: COMPREHEN METABOLIC PANEL [place] : 15692-1 Pending 12/14/2019 Care Plan: LIPID PANEL LOINC : 14345-9 Pending 12/14/2019 Care Plan: PT Pending 12/14/2019 [...] 09/02/2019 Visit Diagnosis Plan: Encounter for [facility] adult medical examination without abnormal findings Discussion: Mediterranean diet Combinati on of cardio and weight bearing exercise DC pravastatin ICD-9 : V70.0 ICD-10 : Z00.00 09/02/2019 Visit Diagnosis Plan: Encounter for therapeutic drug l evel monitoring Discussion: Check PT/INR ICD-9 : V58.61 ICD-10 : Z51.81 09/02/2019 Appointment: Roxie Lopez WPtel: [address] [place] [address] [place] originally 2 mo follow up Annual Well Visit 08/06 Visit Diagnosis Plan: Generalized anxiety disorder Dis cussion: Depakote already helping Follow Up: 2 months ICD-9 : 300.00 ICD-10 : F41.1 07/01/2019 Appointment: Roxie Lopez WPtel: [address] [place] [address] US FOLLOW UP 07/01/2019 Visit Diagnosis Plan: [...] : K92.1 05/27/2019 Appointment: Roxie Lopez WPtel: [address] [place] [address] [place] FOLLOW UP 05/27/2019 Visit Diagnosis Plan: [...] : F51.04 04/22/2019 Appointment: Roxie Lopez WPtel: [address] [place], [place] [phone] FOLLOW UP 04/22/2019 Visit Diagnosis Plan: Unspecified [...] : K59.01 02/09/2019 Appointment: Roxie Lopez WPtel: [address] [place], [place] [phone] FOLLOW UP 02/09/2019 Patient Education: escitalopram oxalate- [employer] [id number] Completed 02/09/2019 Patient Education: doxepin- [employer] [id number] Completed 02/09/2019 Visit Diagnosis Plan: Nocturia Discussion: [...] : F51.04 01/07/2019 Appointment: Roxie Lopez WPtel: [address] [place], [place] [phone] FOLLOW UP 01/07/2019 Patient Education: tamsulosin- [employer] [id number] Completed 01/07/2019 Patient Education: doxepin- [employer] [id number] Completed 01/07/2019 Care Plan: COMPREHEN METABOLIC [place]EL [place] : 13496-4 Pending 12/17/2018 Care Plan: CBC Pending 12/17/2018 Care Plan: LIPID PANEL LOINC : 41834-9 Pending 12/17/2018 Appointment: Roxie Lopez WPtel: [address] [place] [address] [place] INJECTION 08/20/2018 Patient Education: Patient Medication [...] : I10 07/09/2018 Appointment: Roxie Lopez WPtel: [address] [place] [address] FOLLOW UP 07/09/2018 Patient Education: Patient Medication Summary Completed 07/09/2018 Visit Diagnosis Plan: Generalized anxiety disorder Dis cussion: Add lexapro 10mg q HS ICD-9 : 300.00 ICD-10 : F41.1 11/27/2017 Visit Diagnosis Plan: Alzheimer's disease, unspecified Discussion: Change Namenda XR to Namenda 10mg po BI Follow Up: 3 months ICD-9 : 331.0 ICD-10 : G30.9 11/27/2017 Visit Diagnosis Plan: Encounter for [facility] adult medical examination without abnormal findings Discussion: Update fasting lab ICD-9 : V70.0 ICD-10 : Z00.00 11/27/2017 Appointment: Roxie Lopez WPtel: [address] [place], [place] [id number] Annual Well Visit 11/27/2017 Patient Education: Patient Medication Summary Completed 11/27/2017 Patient Education: Patient Medication Summary Completed 11/14/2017 Care Plan: CBC Pending 11/14/2017 Care Plan: PT Pending 11/14/2017 Care Plan: COMPREH[place] METAB[place] : 27740-3 Pending 11/14/2017 Care Plan: LIPID PANEL LOINC : 16251-4 Pending 11/14/2017 Care Plan: ASSAY THYROID STIM HORMONE Pen ding 11/14/2017 Appointment: Roxie Lopez WPtel: [address] [place], [place] [phone] [place] INJECTION 08/14/2017 Patient Education: Patient Medication Summary Completed 08/14/2017 Appointment: Roxie Lopez WPtel: [address] [place], [place] [phone] [place] INJECTION 10/03/2016 Patient Education: Patient Medication Summary Completed 10/03/2016 Patient Education: Patient Medication Summary Completed 01/02/2016 Care Plan: CBC Ordered 01/02/2016 Visit Plan: Check fasting lab with next PT/INR Continue current meds Discussed trial of PPI but states gaviscon works if will take so will just try it 10/10/2015 Appointment: Roxie Lopez WPtel: [address] [place], [place] [id number] 10/07/15 appt confirmed cn Annual Well Visit 05/2015 Patient Education: Patient Medication Summary Completed 10/10/2015 Appointment: Roxie Lopez WPtel: [address] [place], [place] [phone] 08/31 no answer cell # 08/31 vm 2nd # FOLLOW UP 09/01/2014 Patient Education: Patient Medication Summary Completed 09/01/2014 Patient Education: Patient Medication Summary Completed 08/23/2014 Visit Plan: Lab discussed Check testicul ar US Change namenda to Namenda XR 23mg QD Check PSA 07/02/2013 Appointment: Roxie Lopez WPtel: [address] [place] [address] ACUTE ILLNESS 07/02/2013 Patient Education: Patient Medication Summary Completed 07/02/2013 Visit Plan: Continue namenda 10mg po BID Discussed aricept 06/25/2012 Appointment: Roxie Lopez WPtel: [address] [place] [address] confirmed w ACUTE ILLNESS 06/25/2012 Patient Education: Patient Medication Summary Completed 06/25/2012 Appointment: Roxie Lopez WPtel: [address] [place] [address] FOLLOW UP 05/15/2012 Patient Education: Patient Medication Summary Completed 05/15/2012 Visit Plan: Continue current meds Lab di scussed Long discussion about meds, diet, exercise and weight loss for decreasing TG and elevating HDL Add Nystatin/TAC cream to use prn 12/06/2011 Appointment: Roxie Lopez WPtel: [address] [place] [address] CHECK UP 12/06/2011 Patient Education: Patient Medication Summary Completed 12/06/2011 Visit Plan: Check fasting lab--CMP, lipi ds, PSA, PT/INR Loan deferment paperwork filled out 10/30/2010 Appointment: Roxie Lopez WPtel: [address] [place] [address] ESTABLISHED PATIENT 10/30/2010 Patient Education: Patient Medication Summary Completed 10/30/2010 Referral: Angeline Arellano WPtel: [address] [place] [address] Referral Appointment Requested Instructions Comment . Check [...]
--- NOTE | 2021-10-12 10:24 | ED General ---
General Chief Complaint: Altered Mental Status Stated Complaint: WEAKNESS Source of Information: Patient Exam Limitations: No Limitations History of Present Illness Date Seen by Provider: Oct 12, 2021 Time Seen by Provider: 10:10 Initial Comments Patient to the ER by EMS from home with chief complaint of shortness of breath altered mental status. He is 10 days status post duction of COVID-19 and was doing better until today. He is fairly noncontributory to his history with a background of dementia and most history is by EMS from family. He denies having any pain nausea fevers chills diarrhea or constipation. Allergies and Home Medications Allergies Coded Allergies: Penicillins (Unverified Allergy, Mild, 03/01/09) penicillin G (Verified Allergy, Unknown, 10/30/08) Patient Home Medication List Home Medication List Reviewed: Yes Ciprofloxacin (Cipro Tablet (Non-Formulary)) 500 Mg Tab, 500 MG PO BID, (Reported) Entered as Reported by: KRISTAL CUEVA on 07/29/13 1342 Lorazepam (Ativan) 1 Mg Tablet, 1 MG PO BID PRN, (Reported) Entered as Reported by: ROSANNA WILLSON on 07/31/13 1620 Metoprolol Tartrate (Metoprolol Tartrate 50 Mg) 50 Mg Tablet, 100 MG PO HS, (Reported) Entered as Reported by: ROSANNA WILLSON on 07/31/13 1621 Oxycodone Hcl/Acetaminophen (Tylox 5/325 Mg) 1 Tab Tablet, 1 TAB PO Q4H PRN, (Reported) Entered as Reported by: KRISTAL CUEVA on 07/29/13 1342 Pravastatin Sodium (Pravachol) 40 Mg Tablet, 40 MG PO HS, (Reported) Entered as Reported by: JESSICA GARCIA on 07/24/13 1132 Senna (Senokot S) 1 Ea Tablet, 2 EA PO BID, (Reported) Entered as Reported by: TONE ESPINOZA on 08/02/13 1032 Warfarin Sod (Coumadin 2 Mg) 2 Mg Tab, 3 MG PO HS, (Reported) Entered as Reported by: FLORENCIA OSCAR on 03/01/09 1648 [Namenda Xr 21MG] , 28 MG PO HS, (Reported) Entered as Reported by: ROSANNA WILLSON on 07/31/13 1629 Review of Systems Review of Systems Constitutional: see HPI (Patient provides very little history, history and review of systems per family and EMS), fever, malaise, weakness EENTM: No ear discharge, No ear pain Respiratory: cough, short of breath Cardiovascular: No chest pain, No edema Gastrointestinal: No abdominal pain, No nausea, No vomiting Genitourinary: No discharge, No dysuria Musculoskeletal: No back pain, No joint pain Skin: No pruritus, No rash Psychiatric/Neurological: Denies Headache, Denies Numbness All Other Systems Reviewed Negative Unless Noted: Yes Past Lzlkiyr-Igctuh-Nyjoji Hx Patient Social History Tobacco Use?: No Use of E-Cig and/or Vaping dev: No Past Medical History Reproductive Disorders: No Physical Exam Vital Signs Vital Signs - First Documented Capillary Refill : Height, Weight, BMI Height: '" Weight: 228lbs. oz. 103.445238cl; BMI Method: General Appearance: WD/WN, Chronically ill, Mild Distress Eyes: Bilateral Eye Normal Inspection, Bilateral Eye PERRL, Bilateral Eye EOMI HEENT: PERRL/EOMI, Pharynx Normal; No Moist Mucous Membranes Neck: Full Range of Motion, Normal Inspection Respiratory: Lungs Clear, Normal Breath Sounds, No Accessory Muscle Use, Respiratory Distress (Mild to moderate on 2 L of oxygen he maintains 92 to 94% oxygen saturations.) Cardiovascular: Regular Rate, Rhythm, Normal Peripheral Pulses Gastrointestinal: Normal Bowel Sounds, Non Tender, Soft Extremity: Normal Capillary Refill, Normal Inspection, No Pedal Edema Neurologic/Psychiatric: Alert, No Motor/Sensory Deficits, wine merchant II-XII Norm as Tested, Other (Oriented to person only) Skin: Normal Color, Warm/Dry Progress/Results/Core Measures Suspected Sepsis SIRS Temperature: Pulse: Respiratory Rate: Laboratory Tests 10/12/21 10:18: White Blood Count 7.5 Blood Pressure / Mean: Laboratory Tests 10/12/21 10:18: Creatinine 0.70, INR Comment 3.8H, Platelet Count 312, Total Bilirubin 1.0 Results/Orders Lab Results Laboratory Tests Test 10/12/21 10:18 10/12/21 10:30 Range/Units White Blood Count 7.5 4.3-11.0 10^3/uL Red Blood Count 4.26 L 4.30-5.52 10^6/uL Hemoglobin 13.7 13.3-17.7 g/dL Hematocrit 40 40-54 % Mean Corpuscular Volume 94 80-99 fL Mean Corpuscular Hemoglobin 32 25-34 pg Mean Corpuscular Hemoglobin Concent 34 32-36 g/dL Red Cell Distribution Width 11.9 10.0-14.5 % Platelet Count 312 130-400 10^3/uL Mean Platelet Volume 9.7 9.0-12.2 fL Immature Granulocyte % (Auto) 4 % Neutrophils (%) (Auto) 67 42-75 % Lymphocytes (%) (Auto) 16 12-44 % Monocytes (%) (Auto) 12 0-12 % Eosinophils (%) (Auto) 1 0-10 % Basophils (%) (Auto) 0 0-10 % Neutrophils # (Auto) 5.0 1.8-7.8 10^3/uL Lymphocytes # (Auto) 1.2 1.0-4.0 10^3/uL Monocytes # (Auto) 0.9 0.0-1.0 10^3/uL Eosinophils # (Auto) 0.1 0.0-0.3 10^3/uL Basophils # (Auto) 0.0 0.0-0.1 10^3/uL Immature Granulocyte # (Auto) 0.3 H 0.0-0.1 10^3/uL Prothrombin Time 37.8 H 12.2-14.7 SEC INR Comment 3.8 H 0.8-1.4 D-Dimer <= 0.27 0.00-0.49 UG/ML Sodium Level 139 135-145 MMOL/L Potassium Level 4.4 3.6-5.0 MMOL/L Chloride Level 108 H 98-107 MMOL/L Carbon Dioxide Level 20 L 21-32 MMOL/L Anion Gap 11 5-14 MMOL/L Blood Urea Nitrogen 17 7-18 MG/DL Creatinine 0.70 0.60-1.30 MG/DL Estimat Glomerular Filtration Rate 110 BUN/Creatinine Ratio 24 Glucose Level 106 H 70-105 MG/DL Calcium Level 8.6 8.5-10.1 MG/DL Corrected Calcium 9.3 8.5-10.1 MG/DL Total Bilirubin 1.0 0.1-1.0 MG/DL Aspartate Amino Transf (AST/SGOT) 30 5-34 U/L Alanine Aminotransferase (ALT/SGPT) 45 0-55 U/L Alkaline Phosphatase 54 40-136 U/L C-Reactive Protein High Sensitivity 5.48 H 0.00-0.50 MG/DL Total Protein 6.5 6.4-8.2 GM/DL Albumin 3.1 L 3.2-4.5 GM/DL Procalcitonin 0.03 <0.10 NG/ML Blood Gas Puncture Site RT RAD Blood Gas Patient Temperature 35.6 Arterial Blood pH 7.47 H 7.37-7.43 Arterial Blood Partial Pressure CO2 32 L 35-45 MMHG Arterial Blood Partial Pressure O2 63 L 79-93 MMHG Arterial Blood HCO3 24 23-27 MMOL/L Arterial Blood Total CO2 24.6 21.0-31.0 MMOL/L Arterial Blood Oxygen Saturation 95 94-100 % Arterial Blood Base Excess 0.0 -2.5-2.5 MMOL/L Harley Test YES-POS Blood Gas Ventilator Setting NO Blood Gas Inspired Oxygen 2 L My Orders Orders - BRIANA ALBRIGHT Chest 1 View, Ap/Pa Only (10/12/21 10:20) Cbc With Automated Diff (10/12/21 10:20) Comprehensive Metabolic Panel (10/12/21 10:20) Hs C Reactive Protein (10/12/21 10:20) Procalcitonin (Pct) (10/12/21 10:20) Arterial Blood Gas (10/12/21 10:20) Covid-19 External Lab Results (10/12/21 10:20) Influenza A And B By Pcr (10/12/21 10:20) Isolation Central Supply Req (10/12/21 10:20) Dexamethasone Injection (Decadron Inje (10/12/21 10:30) Ed Iv/Invasive Line Start (10/12/21 10:20) Ns Iv 1000 Ml (Sodium Chloride 0.9%) (10/12/21 10:30) O2 (10/12/21 10:24) Protime With Inr (10/12/21 10:24) Fibrin Degradation Products (10/12/21 10:24) Medications Given in ED Current Medications Medications Dose Ordered Sig/Zach Route Start Time Stop Time Status Last Admin Dose Admin Dexamethasone Sodium Phosphate 6 mg ONCE ONCE IV 10/12/21 10:30 10/12/21 10:31 DC 10/12/21 10:48 6 MG Vital Signs/I&O 12/9/21 12/9/21 10:05 10:05 Temp 35.8 Pulse 83 Resp 16 B/P (MAP) 126/85 (99) Pulse Ox 94 O2 Delivery Room Air Nasal Cannula O2 Flow Rate 2.00 2.00 Capillary Refill : Progress Note #1: Time: 13:57 Progress Note Patient is resting comfortably maintaining oxygen saturations in the mid 90s on 2 to 3 L/min. No accessory muscle use for respirations. Otherwise aseptic vital signs with a heart rate in the low 80s. Labs were reviewed and his markers of inflammation and D-dimer are all low. Suspect he has hypoxemia related to the COVID-19 and a opportunistic bacterial infection does not seem very likely. We have reached out to speak to the daughter or and have not been able to make contact. Nurse did talk briefly to the . By the time this provider got out to the waiting room to look for family members they were not present. Whenever we try to call back the number just goes busy. The other number on his chart is disconnected. Progress Note #2: Time: 15:09 Progress Note The daughterLew came to the ER and we discussed the patient's case. The patient needs oxygen therapy and steroids. The patient's caregiver is his who also has COVID-19 and is unable to care for him. The daughter feels that she has not been able to care for him very well for the past few months because of his progressive dementia. She has been urging her mother to place the patient in long-term care and the mother of the patient is in agreement. They are okay with him staying in the hospital and looking for placement in long-term care. Diagnostic Imaging Diagonstic Imaging: Xray Plain Films/CT/US/NM/MRI: chest Comments [facility] [place] [place] NAME: CHARLES JEREZ [facility] REC#: [id number] PT STATUS: REG ER : 1945 PHYSICIAN: BRIANA ALBRIGHT MD ADMIT DATE: 10/12/21/ER Draft Date of Exam:10/12/21 CHEST 1 VIEW, AP/PA ONLY INDICATION: Weakness. Altered mental status. COMPARISON: 07/24/2013 FINDINGS: Single frontal radiographic view of the chest was obtained and demonstrates interval development of consolidative opacities within the lateral left mid and lower lung field. These have a somewhat nodular and masslike appearance. Reference lesion measures 2 x 2.9 cm. Right lung is relatively clear. There is no large effusion or pneumothorax on either side. Cardiac silhouette and pulmonary vasculature are within normal limits. Osseous structures show no acute abnormalities. Sternotomy wires are noted. IMPRESSION: 1. Interval development of consolidative opacities within the lateral left mid and lower lung field. Findings could be on the basis of areas of rounded pneumonia. Soft tissue lesions cannot be entirely excluded. Followup to resolution is advised. Additionally, postcontrast CT chest may be of benefit. Dictated on workstation # [id number] Dict: 10/12/21 1146 Trans: 10/12/21 1150 [facility] [id number] Interpreted by: GLADIS SALMERON MD Electronically signed by: Reviewed: Reviewed by Me Departure Communication (Admissions) Time/Spoke to Admitting Phy: 15:00 Discussed the case with Dr. Lopez and she agrees to observe the patient with consult social media marketer. Impression Primary Impression: COVID-19 Additional Impressions: Hypoxemia Dementia Qualified Codes: G30.1 - Alzheimer's disease with late onset; F02.80 - Dementia in other diseases classified elsewhere without behavioral disturbance Disposition: ADMITTED INPATIENT Condition: Stable Admissions Decision to Admit Reason: Admit from ER (General) Decision to Admit/Date: Oct 12, 2021 Time/Decision to Admit Time: 15:00 Departure-Patient Inst. Referrals: ROXIE LOPEZ DO (PCP/Family) Primary Care Physician BRIANA ALBRIGHT Oct 12, 2021 10:24
[2021-10-12] MEDS ORDERED: NS IV 1000 ML 1,000 ML IV SCH (10:30)
[2021-10-12 10:34] LABS: BASOPHILS % (AUTO) 0 % (0-10); EOSINOPHILS # (AUTO) 0.1 10^3/uL (0.0-0.3); EOSINOPHILS % (AUTO) 1 % (0-10); HEMATOCRIT 40 % (40-54); HEMOGLOBIN 13.7 g/dL (13.3-17.7); LYMPHOCYTES # (AUTO) 1.2 10^3/uL (1.0-4.0); LYMPHOCYTES % (AUTO) 16 % (12-44); MEAN CORPUSCULAR HEMOGLOBIN 32 pg (25-34); MEAN CORPUSCULAR HGB CONC 34 g/dL (32-36); MEAN CORPUSCULAR VOLUME 94 fL (80-99); MEAN PLATELET VOLUME 9.7 fL (9.0-12.2); MONOCYTES # (AUTO) 0.9 10^3/uL (0.0-1.0); MONOCYTES % (AUTO) 12 % (0-12); NEUTROPHILS % (AUTO) 67 % (42-75); PLATELET COUNT 312 10^3/uL (130-400); WHITE BLOOD COUNT 7.5 10^3/uL (4.3-11.0)
[2021-10-12 10:34] LABS: ABG OXYGEN SATURATION 95 % (94-100); ABG PCO2 32 MMHG (35-45); ABG PH 7.47 (7.37-7.43); ABG PO2 63 MMHG (79-93); ABG TCO2 24.6 MMOL/L (21.0-31.0)
[2021-10-12 10:35] LABS: ALLENS TEST YES-POS; INSPIRED O2 2 L; PATIENT TEMP 35.6; VENTILATOR NO
[2021-10-12 10:47] LABS: ALBUMIN 3.1 GM/DL (3.2-4.5); POTASSIUM 4.4 MMOL/L (3.6-5.0)
[2021-10-12 10:48] LABS: CALCIUM 8.6 MG/DL (8.5-10.1)
[2021-10-12 10:49] LABS: TOTAL PROTEIN 6.5 GM/DL (6.4-8.2)
[2021-10-12 10:53] LABS: CREATININE SERUM 0.7 MG/DL (0.60-1.30)
[2021-10-12 10:54] LABS: FIBRIN DEGRADATION PRODUCTS <= 0.27 UG/ML (0.00-0.49); INR 3.8 (0.8-1.4); PROTHROMBIN TIME PATIENT 37.8 SEC (12.2-14.7)
--- NOTE | 2021-10-12 11:51 | Diagnostic Imaging Report ---
INDICATION: Weakness. Altered mental status. COMPARISON: 07/24/2013 FINDINGS: Single frontal radiographic view of the chest was obtained and demonstrates interval development of consolidative opacities within the lateral left mid and lower lung field. These have a somewhat nodular and masslike appearance. Reference lesion measures 2 x 2.9 cm. Right lung is relatively clear. There is no large effusion or pneumothorax on either side. Cardiac silhouette and pulmonary vasculature are within normal limits. Osseous structures show no acute abnormalities. Sternotomy wires are noted. IMPRESSION: 1. Interval development of consolidative opacities within the lateral left mid and lower lung field. Findings could be on the basis of areas of rounded pneumonia. Soft tissue lesions cannot be entirely excluded. Followup to resolution is advised. Additionally, postcontrast CT chest may be of benefit. Dictated by: Dictated on workstation # [id number]
[2021-10-12 16:10] VITALS: BP 127/82
[2021-10-12] MEDS ORDERED: LORazepam INJ 2 MG/ML (ATIVAN) VIAL IV PRN (16:15)
[2021-10-12] MEDS ORDERED: ONDANSETRON 4 MG/2 ML (SDV) Z0FRAN IV PRN (16:15)
[2021-10-12 16:24] VITALS: BP 126/85
[2021-10-12] MEDS ORDERED: RT-ALBUTEROL SULF 2.5 MG/3 ML PRE-MIX VIAL INH PRN (16:30)
[2021-10-12] MEDS: NS IV 1000 ML 1,000 ML IV SCH (17:35)
[2021-10-12] MEDS ORDERED: HALOPERIDOL 5 MG/ML (HALDOL) VIAL IM PRN (19:00)
[2021-10-12 19:58] VITALS: BP 149/94
[2021-10-12] MEDS ORDERED: RT-ALBUTEROL SULF 2.5 MG/3 ML PRE-MIX VIAL INH SCH (21:00)
[2021-10-12 23:00] VITALS: BP 175/99
[2021-10-13] MEDS: NS IV 1000 ML 1,000 ML IV SCH (02:44)
[2021-10-13 03:28] VITALS: BP 147/81
[2021-10-13] MEDS: RT-ALBUTEROL HFA 8.5 GM INHALER IH SCH ×4 (03:48→21:53)
--- NOTE | 2021-10-13 05:31 | Diagnostic Imaging Report ---
EXAMINATION: Chest 1 view HISTORY: Covid-19 COMPARISON: 10/12/2021 FINDINGS: Median sternotomy wires are aligned. There is a prosthetic heart valve. Heart size is normal. Mild airspace opacities on the left. No pneumothorax. No pleural effusion. IMPRESSION: 1. Mild unchanged left-sided airspace opacities consistent with Covid-19 pneumonia. Dictated by: Dictated on workstation # [id number]
[2021-10-13 06:20] LABS: BASOPHILS % (AUTO) 0 % (0-10); EOSINOPHILS % (AUTO) 0 % (0-10); HEMATOCRIT 36 % (40-54); HEMOGLOBIN 12.5 g/dL (13.3-17.7); LYMPHOCYTES # (AUTO) 0.7 10^3/uL (1.0-4.0); LYMPHOCYTES % (AUTO) 10 % (12-44); MEAN CORPUSCULAR HEMOGLOBIN 32 pg (25-34); MEAN CORPUSCULAR HGB CONC 34 g/dL (32-36); MEAN CORPUSCULAR VOLUME 93 fL (80-99); MEAN PLATELET VOLUME 9.2 fL (9.0-12.2); MONOCYTES # (AUTO) 0.7 10^3/uL (0.0-1.0); MONOCYTES % (AUTO) 11 % (0-12); NEUTROPHILS # (AUTO) 5.1 10^3/uL (1.8-7.8); NEUTROPHILS % (AUTO) 76 % (42-75); PLATELET COUNT 290 10^3/uL (130-400); WHITE BLOOD COUNT 6.7 10^3/uL (4.3-11.0)
[2021-10-13 06:27] LABS: POTASSIUM 3.3 MMOL/L (3.6-5.0)
[2021-10-13 06:29] LABS: CALCIUM 8.4 MG/DL (8.5-10.1)
[2021-10-13 06:32] LABS: PROTHROMBIN TIME PATIENT 46.7 SEC (12.2-14.7)
[2021-10-13 06:33] LABS: CREATININE SERUM 0.64 MG/DL (0.60-1.30)
[2021-10-13 07:21] VITALS: BP 144/85
[2021-10-13] MEDS ORDERED: VITAMIN K 1 MG/ML ORAL SOLN 1 ML SYRINGE PO NR (09:00)
[2021-10-13 11:47] VITALS: BP 138/84
[2021-10-13] MEDS: cefTRIAXone 1 GM PRE-MIX 50 ML IV SCH (12:41)
[2021-10-13] MEDS: 1/2 NS W/KCL 20 MEQ/L 1,000 ML IV SCH ×2 (12:41→22:52)
--- NOTE | 2021-10-13 14:35 | History & Physical ---
History of Present Illness History of Present Illness Reason for visit/HPI This is a 76 year old male with a history of dementia and recent COVID-19 infection. He did have 2 Moderna vaccines but had not had a booster vaccine and did have monoclonal antibodies as an outpatient. However, he was becoming weaker and more confused. He was brought to the emergency room and found to be hypoxic. He did have COVID pneumonia on CXR. He was put on 3 liters of oxygen via NC and his oxygen saturation improved to mid-90s. The and daughter feel his dementia state was worsening prior to COVID and that residential placement needs to be pursued. He will be admitted for treatment of his COVID-19 infection and hypoxia with social media specialist consult for care home placement. Date of Admission Oct 13, 2021 at 12:11 Date Seen by a Provider: Oct 13, 2021 Time Seen by a Provider: 09:15 I consulted on this patient on 10/13/21 14:29 Attending Physician Roxie Lopez DO Admitting Physician Roxie Lopez DO Consult Allergies and Home Medications Allergies Coded Allergies: Penicillins (Unverified Allergy, Mild, 03/01/09) penicillin G (Verified Allergy, Unknown, 10/30/08) Patient Home Medication List Home Medication List Reviewed: Yes Ciprofloxacin (Cipro Tablet (Non-Formulary)) 500 Mg Tab, 500 MG PO BID, (Reported) Entered as Reported by: KRISTAL CUEVA on 07/29/13 1342 Lorazepam (Ativan) 1 Mg Tablet, 1 MG PO BID PRN, (Reported) Entered as Reported by: ROSANNA WILLSON on 07/31/13 1620 Metoprolol Tartrate (Metoprolol Tartrate 50 Mg) 50 Mg Tablet, 100 MG PO HS, (Reported) Entered as Reported by: ROSANNA WILLSON on 07/31/13 1621 Oxycodone Hcl/Acetaminophen (Tylox 5/325 Mg) 1 Tab Tablet, 1 TAB PO Q4H PRN, (Reported) Entered as Reported by: KRISTAL CUEVA on 07/29/13 1342 Pravastatin Sodium (Pravachol) 40 Mg Tablet, 40 MG PO HS, (Reported) Entered as Reported by: JESSICA GARCIA on 07/24/13 1132 Senna (Senokot S) 1 Ea Tablet, 2 EA PO BID, (Reported) Entered as Reported by: TONE ESPINOZA on 08/02/13 1032 Warfarin Sod (Coumadin 2 Mg) 2 Mg Tab, 3 MG PO HS, (Reported) Entered as Reported by: FLORENCIA OSCAR on 03/01/09 1648 [Namenda Xr 21MG] , 28 MG PO HS, (Reported) Entered as Reported by: ROSANNA WILLSON on 07/31/13 1629 Past Zugocun-Utknmr-Ccpwlr Hx Patient Social History Marrital Status: Employed/Student: retired Tobacco Use?: Yes Tobacco type used: Cigarettes Smoking Status: Former Smoker Smokeless Tobacco Frequency: Never a User Use of E-Cig and/or Vaping dev: No Use of E-Cig and/or Vaping Janes: Never a User Substance use?: No Alcohol Use?: No Pt feels they are or have been: No Immunizations Up To Date Date of Influenza Vaccine: Aug 02, 2013 First/Initial COVID19 Vaccinat: june COVID19 Vaccination Cristóbal: july Date of Pneumonia Vaccine: Aug 02, 2013 Current Status Advance Directives: No Communicates: Verbally Primary Language: Citizen [place] Preferred Spoken Language: Citizen [place] Is interpretation needed?: No Implanted or Applied Medical D: Heart mechanical device Review of Systems Constitutional: weakness, weight loss EENTM: nose congestion Respiratory: cough, dyspnea on exertion, short of breath Cardiovascular: No no symptoms reported, No see HPI, No chest pain, No edema, No Hx of Intervention, No palpitations, No syncope, No vascular heart diseas, No other Gastrointestinal: loss of appetite Genitourinary: hesitancy Musculoskeletal: muscle weakness Skin: No no symptoms reported, No see HPI, No change in color, No change in hair/nails, No dryness, No hx of skin cancer, No lesions, No lumps, No pruritus, No rash, No other Psychiatric/Neurological: Pre-Existing Deficit, Weakness, Other (worsening dementia) Physical Exam Vital Signs Vital Signs - First Documented Capillary Refill : Less Than 3 Seconds Height, Weight, BMI Height: '" Weight: 228lbs. oz. 103.075723vr; 26.81 BMI Method: General Appearance: Mild Distress HEENT: Normal ENT Inspection Neck: Supple Respiratory: Decreased Breath Sounds Cardiovascular: Regular Rate, Rhythm, Systolic Murmur Gastrointestinal: Normal Bowel Sounds, Non Tender, Soft Rectal: Deferred Back: Normal Inspection, No CVA Tenderness, No Vertebral Tenderness Extremity: Non Tender, No Calf Tenderness, No Pedal Edema Neurologic/Psychiatric: Alert, Oriented x3, Disoriented Skin: Warm/Dry Comments Laboratory Tests 10/13/21 05:48: White Blood Count 6.7, Red Blood Count 3.93L, Hemoglobin 12.5L, Hematocrit 36L, Mean Corpuscular Volume 93, Mean Corpuscular Hemoglobin 32, Mean Corpuscular Hemoglobin Concent 34, Red Cell Distribution Width 11.5, Platelet Count 290, Mean Platelet Volume 9.2, Immature Granulocyte % (Auto) 3, Neutrophils (%) (Auto) 76H, Lymphocytes (%) (Auto) 10L, Monocytes (%) (Auto) 11, Eosinophils (%) (Auto) 0, Basophils (%) (Auto) 0, Neutrophils # (Auto) 5.1, Lymphocytes # (Auto) 0.7L, Monocytes # (Auto) 0.7, Eosinophils # (Auto) 0.0, Basophils # (Auto) 0.0, Immature Granulocyte # (Auto) 0.2H, Prothrombin Time 46.7*H, INR Comment 5.0H, Sodium Level 138, Potassium Level 3.3L, Chloride Level 106, Carbon Dioxide Level 21, Anion Gap 11, Blood Urea Nitrogen 15, Creatinine 0.64, Estimat Glomerular Filtration Rate 122, BUN/Creatinine Ratio 23, Glucose Level 107H, Calcium Level 8.4L Assessment/Plan Assessment and Plan 1. COVID 19 Pneumonia--admit and will cover with decadron and rocephin and SVNs with albuterol, no lovenox or coumadin since INR is supratherapeutic 2. Acute Respiratory Distress/Hypoxia due to COVID 19 Pneumonia--admit on O2 at 3L NC 3. Worsening/End Stage Dementia--will look into SNF for DC 4. Weakness/Debility--start PT/OT 5. Aortic Valve Replacement--stable 6. Parkinson's--resume sinemet 7. BPH--resume tamsulosin 8. Supratherapeutic INR--hold coumadin, low dose of Vitamin K given today, repeat PT/INR in AM 9. Dehydration/Poor Oral Intake--hydrate and monitor 10. Hypokalemia--replace potassium Admission Diagnosis Admission Status: Inpatient Order (span 2 midnights) Reason for Inpatient Admission: Oxygen requirement as well as IVFs and strengthening and residential placement ROXIE LOPEZ DO Oct 13, 2021 14:35
--- NOTE | 2021-10-13 14:51 | Physical Therapy Evaluation ---
PT Evaluation-General Medical Diagnosis Admission Date Oct 13, 2021 at 12:11 Medical Diagnosis: covid 19, hypoxia Onset Date: Oct 13, 2021 Therapy Diagnosis Therapy Diagnosis: impaired mobility, endurance Height/Weight Weight (Pounds): 228 Precautions Precautions/Isolations: Contact Isolation, Droplet Isolation, Fall Prevention Referral Physician: John Reason for Referral: Evaluation/Treatment Medical History Pertinent Medical History: Dementia, Parkinson's Reviewed History: Yes Social History Current Living Status: Spouse Entry Into Home: Stairs Without Railing Prior Prior Level of Function SCALE: Activities may be completed with or without assistive devices. 5-Kdeqjvbspe-skqacsw completes the activity by him/herself with no assistance from a helper. 5-Set-up or Clean-up Assistance-helper sets up or cleans up; patient completes activity. Be[place] assists only prior to or following the activity. 4-Supervision or Touching Assistance-helper provides verbal cues and/or touching/steadying and/or contact guard assistance as patient completes activity. Assistance may be provided throughout the activity or intermittently. 3-Partial/Moderate Assistance-helper does LESS THAN HALF the effort. Beals lifts, holds or supports trunk or limbs, but provides less than half the effort. 2-Substantial/Maximal Assistance-helper does MORE THAN HALF the effort. Beals lifts or holds trunk or limbs and provides more than half the effort. 1-Srxwfnuun-lhyxff does ALL the effort. Patient does none of the effort to complete the activity. Or, the assistance of 2 or more helpers is required for the patient to complete the activity. If activity was not attempted, code reason: 7-Patient Refused. 9-Not Applicable-not attempted and the patient did not perform the activity before the current illness, exacerbation or injury. 10-Not Attempted due to Environmental Limitations-(lack of equipment, weather restraints, etc.). 88-Not Attempted due to Medical Conditions or Safety Concerns. Unsure of prior level of function. PT Evaluation-Current Subjective Patient in bed pre tx, agrees to PT, voices no complaints of pain. Pt/Family Goals none stated Objective Patient Orientation: Person, Confused, Unable to Assess Attachments: IV ROM/Strength ROM Lower Extremities WNL Strength Lower Extremities at least grossly 4/5 BLE, patient cannot follow directions for testing Transfers Roll Left to Right (QC): 6 Sit to Lying (QC): 6 Lying to Sitting/Side of Bed(Q: 6 Sit to Stand (QC): 4 Chair/Nlt-os-Ukgyq Xfer(QC): 4 Gait Does the Patient Walk?: Yes Mode of Locomotion: Walk Anticipated Mode of Locomotion: Walk Walk 10 feet (QC): 4 Distance: 20' Gait Assistive Device: Handheld Assist Balance Sitting Static: Normal Sitting Dynamic: Normal Standing Static: Fair Standing Dynamic: Fair Assessment/Needs Patient in bed post tx with nurse call, phone, tray, bed alarm on. Patient has impaired mobility, endurance. Patient is confused and has trouble communicating, cannot follow most directions, was difficult to get out of bed, he just wanted to lay down. Rehab Potential: Guarded PT Skilled Nursing Goals Skilled Nursing Goals PT Skilled Nursing Goals Time Frame: Oct 20, 2021 Roll Left & Right (QC): 6 Sit to Lying (QC): 6 Lying-Sitting on Side/Bed(QC): 6 Sit to Stand (QC): 4 (SBA) Chair/Gim-bj-Zjcrn Xfer(QC): 4 (SBA) Walk 10 feet (QC): 4 Walk 50ft with 2 Turns (QC): 4 Walk 150 ft (QC): 4 PT Plan Problem List Problem List: Activity Tolerance, Functional Strength, Safety, Balance, Gait, Transfer, ROM Treatment/Plan Treatment Plan: Continue Plan of Care Treatment Plan: Education, Functional Activity Afsaneh, Functional Strength, Gait, Safety, Therapeutic Exercise, Transfers Treatment Duration: Oct 20, 2021 Frequency: 6 times per week Estimated Hrs Per Day: .25 hour per day Patient and/or Family Agrees t: Yes Safety Risks/Education Patient Education: Gait Training, Transfer Techniques, Correct Positioning, Safety Issues Teaching Recipient: Patient Teaching Methods: Demonstration, Discussion Response to Teaching: Reinforcement Needed Discharge Recommendations Plan Patient will perform bed mobility and transfer training, balance and endurance training, functional strengthening, stair training, gait training, and edu cation, to improve functional mobility and independence at home. Therapy Discharge Recommendati: 24 Hour Supervision Time/GCodes Time In: 1421 Time Out: 143 Total Billed Treatment Time: 10 Total Billed Treatment 1 visit IRIS Juanjo' KATHIE GREGORY PT Oct 13, 2021 14:51
--- NOTE | 2021-10-13 14:53 | Occupational Therapy Eval ---
OT Evaluation-General/PLF Medical Diagnosis Admission Date Oct 13, 2021 at 12:11 Medical Diagnosis: COVID19, hyoxia Onset Date: Oct 12, 2021 Therapy Diagnosis Therapy Diagnosis: decreased ADL status, weakness Height/Weight Weight (Pounds): 228 Precautions Precautions/Isolations: Contact Isolation, Droplet Isolation, Fall Prevention Referral Physician: John Blackwell Reason: Evaluation/Treatment Medical History Pertinent Medical History: Dementia Additional Medical History Parkinson's, BPH, aortic valve replacement. Current History EMS from home c/o SOB and AMS Social History Pt unable to provide much information about PLOF. Accuracy of information unknown. Pt indicates he has some steps into his house, unable to state how many ADL-Prior Level of Function SCALE: Activities may be completed with or without assistive devices. 2-Xisgapwiee-xaghyrl completes the activity by him/herself with no assistance from a helper. 5-Set-up or Clean-up Assistance-helper sets up or cleans up; patient completes activity. [place] assists only prior to or following the activity. 4-Supervision or Touching Assistance-helper provides verbal cues and/or touchi ng/steadying and/or contact guard assistance as patient completes activity. Assistance may be provided throughout the activity or intermittently. 3-Partial/Moderate Assistance-helper does LESS THAN HALF the effort. [place] lifts, holds or supports trunk or limbs, but provides less than half the effort. 2-Substantial/Maximal Assistance-helper does MORE THAN HALF the effort. [place] lifts or holds trunk or limbs and provides more than half the effort. 1-Pskdqjohi-zxqbfr does ALL the effort. Patient does none of the effort to complete the activity. Or, the assistance of 2 or more helpers is required for the patient to complete the activity. If activity was not attempted, code reason: 7-Patient Refused. 9-Not Applicable-not attempted and the patient did not perform the activity before the current illness, exacerbation or injury. 10-Not Attempted due to Environmental Limitations-(lack of equipment, weather restraints, etc.). 88-Not Attempted due to Medical Conditions or Safety Concerns. ADL PLOF Comments Pt unable to provide much information about PLOF. Accuracy of information unknown due to history of dementia. Pt reports independent with ADLs and functional mobility, no AD. Self Care: Unknown Functional Cognition: Needed Some Help OT Current Status Subjective Pt laying in bed, agreeable to OT Tx. Pt had some difficulty following instructions. Mental Status/Objective Patient Orientation: Person, Confused Attachments: IV Current Upper Extremity ROM Unable to fully assess, as pt has difficulty following instruction Upper Extremity Coordination Unable to fully assess, as pt has difficulty following instruction Upper Extremity Strength Unable to fully assess, as pt has difficulty following instruction ADL-Treatment Lower Body Dressing (QC): 2 (Max A to change soiled brief.) Toileting Hygiene (QC): 2 (Max A changing soiled brief.) Other Treatments Pt laying in bed, instructed to transfer to EOB. Pt had difficulty following instructions, he kept crossing his feet, then uncrossing and crossing the opposite way. Pt required verbal and tactile cues in order to transfer EOB. Once EOB, he required verbal and tactile cues to maintain EOB as he attempted to return supine. Pt stood at EOB, performed functional mobility 20' with hand held assistance, then returned bedside. Pt's brief soiled, assistance to manage soiled brief down, and assistance to don tab style brief in stand. Once seated, pt attempted to doff soiled brief off of his feet, he moved feet off of floor, but unable to doff. Required assistance doffing from bilateral feet. Pt transferred supine without assistance. Post tx, pt laying in bed, call light in reach and all needs met, bed alarm activated. Education OT Patient Education: Correct positioning, Energy conservation, Exercise program, Modified ADL techniques, Progress toward Goal/Update tx plan, Purpose of tx/functional activities, Rehab process Teaching Recipient: Patient Teaching Methods: Discussion Response to Teaching: Verbalize Understanding OT Leg Breaker Goals Leg Breaker Goals Time Frame: Oct 27, 2021 Eating (QC): 5 Oral Hygiene (QC): 4 Toileting Hygiene (QC): 4 Shower/Bathe Self (QC): 3 Upper Body Dressing (QC): 3 Lower Body Dressing (QC): 2 On/Off Footwear (QC): 2 Additional Goals: 1-Demonstrate ADL Tasks, 2-Verbalize Understanding, 3- ImproveStrength/Afsaneh 1=Demonstrate adherence to instructed precautions during ADL tasks. 2=Patient will verbalize/demonstrate understanding of assistive d evices/modifications for ADL. 3=Patient will improve strength/tolerance for activity to enable patient to perform ADL's. OT Education/Plan Problem List/Assessment Assessment: Decreased Activ Tolerance, Decreased Safety Aware, Decreased UE Strength, Impaired Cognition, Impaired Coordination, Impaired Funct Balance, Impaired I ADL's, Impaired Self-Care Skills Discharge Recommendations Plan/Recommendations: Continue POC Therapy Discharge Recommendati: Post Acute OT (SNF) Treatment Plan/Plan of Care Treatment,Training & Education: Yes Patient would benefit from OT for education, treatment and training to promote independence in ADL's, mobility, safety and/or upper extremity function for ADL's. Plan of Care: ADL Retraining, Functional Mobility, Orthotic Fitting/Training Treatment Duration: Oct 27, 2021 Frequency: 3 times per week (3-5 times per week) Estimated Hrs Per Day: .25 hour per day Rehab Potential: Guarded Time/GCodes Start Time: 14:22 Stop Time: 14:32 Total Time Billed (hr/min): 10 Billed Treatment Time 1, CATRACHO DUTTON OT Oct 13, 2021 14:53
[2021-10-13 15:22] VITALS: BP_SYST 144; BP_SYST 150; BP_DIAS 68; BP_DIAS 88
[2021-10-13 19:16] VITALS: BP 158/90
[2021-10-13] MEDS: LORazepam INJ 2 MG/ML (ATIVAN) VIAL IVP PRN (22:52)
[2021-10-14] VITALS (7 sets, daily range): BP systolic 122–158; BP diastolic 70–92
[2021-10-14] MEDS: RT-ALBUTEROL HFA 8.5 GM INHALER IH SCH ×4 (03:26→20:06)
[2021-10-14 08:24] LABS: CALCIUM 8.6 MG/DL (8.5-10.1); CREATININE SERUM 0.58 MG/DL (0.60-1.30); INR 1.9 (0.8-1.4); POTASSIUM 3.7 MMOL/L (3.6-5.0)
[2021-10-14] MEDS: 1/2 NS W/KCL 20 MEQ/L 1,000 ML IV SCH ×3 (09:14→19:58)
--- NOTE | 2021-10-14 10:05 | Progress Note ---
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 STAFF REPORTS THAT HE HAS BEEN DIFFICULT TO CARE FOR BECAUSE HE IS FREQUENTLY WANDERING IN HIS ROOM AND THEY CAUGHT HIM DOWN THE ADRIAN BY THE ELEVATORS EARLY THIS MORNING. HE DENIES ANY CONCERNS WHEN I QUESTIONED HIM IN THE ROOM, HE WAS UNAWARE OF WHERE HE WAS OR WHY HE WAS IN THE HOSPITAL. Review of Systems General: No Chills; Fatigue Pulmonary: No Dyspnea; Cough Cardiovascular: No: Chest Pain Gastrointestinal: No: Nausea, Abdominal Pain Genitourinary: Incontinence Neurological: Weakness, Confusion All Other Systems Reviewed All Other Systems Reviewed: Yes Objective Exam Vital Signs Vital Signs Date Time Temp Pulse Resp B/P (MAP) Pulse Ox O2 Delivery O2 Flow Rate FiO2 10/14/21 08:00 Room Air 10/14/21 07:59 36.4 68 20 122/70 (87) 92 Room Air 10/14/21 07:51 Room Air 10/14/21 03:56 36.3 70 18 158/82 (107) 90 Room Air 10/14/21 03:27 Room Air 10/14/21 00:00 36.7 76 18 157/92 (113) 90 Room Air 10/13/21 21:53 91 Room Air 10/13/21 20:45 Room Air 10/13/21 19:16 36.5 73 18 158/90 (112) 97 Room Air 10/13/21 15:22 36.3 85 18 144/88 (106) 92 Room Air 10/13/21 14:04 92 Room Air 0.00 10/13/21 11:47 36.4 81 18 138/84 (102) 91 Room Air I & O 10/14/21 07:00 Intake Total 600 ml Output Total 300 ml Balance 300 ml General Appearance: No Apparent Distress, WD/WN Eyes: Bilateral Eye Normal Inspection, Bilateral Eye PERRL, Bilateral Eye EOMI HEENT: PERRL/EOMI, Normal ENT Inspection Neck: Non Tender, Supple Respiratory: No Accessory Muscle Use, No Respiratory Distress, Decreased Breath Sounds (POOR EFFORT, UNABLE TO FOLLOW COMMANDS) Cardiovascular: Regular Rate, Rhythm, Systolic Murmur Gastrointestinal: Normal Bowel Sounds, Non Tender, Soft Extremity: Non Tender, No Calf Tenderness, No Pedal Edema Neurologic/Psychiatric: Alert, Disoriented Skin: Warm/Dry Results Lab Laboratory Tests 10/14/21 07:40: Prothrombin Time 22.0H, INR Comment 1.9H, Sodium Level 138, Potassium Level 3.7, Chloride Level 110H, Carbon Dioxide Level 19L, Anion Gap 9, Blood Urea Nitrogen 10, Creatinine 0.58L, Estimat Glomerular Filtration Rate 137, BUN/Creatinine Ratio 17, Glucose Level 89, Calcium Level 8.6 Assessment/Plan Assessment/Plan Assessment and Plan COVID 19 PNEUMONIA ADVANCED DEMENTIA WEAKNESS SUPRATHERAPEUTIC INR ON ADMISSION ARTIFICIAL AORTIC VALVE COVID 19 PNEUMONIA - PT ON STEROIDS, ROCEPHIN, BREATHING TREATMENTS, WILL CONTINUE WITH SUPPORTIVE CARE WHILE IN HOSPITAL, PT APPEARS IMPROVED AND STABLE COMPARED TO REPORTS FROM ADMISSION. DEMENTIA -- PT WILL REQUIRE PLACEMENT FOR STRENTHENING AND SAFETY IF FAMILY IN AGREEMENT- WILL DEFER TO DR. KIM. - ATTEMPTED TO CALL PT'S , PHONE WAS UNAVAILABLE TO LEAVE A MESSAGE, "USER BUSY" SIGNAL WITH EACH CALL ATTEMPT. SUPRATHERAPEUTIC INR ON ADMISSION WITH NEED FOR COUMADIN SINCE PT HAS ARTIFICIAL AORTIC VALVE - PT WAS GIVEN A SMALL DOSE OF VITAMIN K ON ADMISSION - - INR IS 1.9 TODAY - COUMADIN RESTARTED AT 1MG, WILL MONITOR SERIAL INR DAILY ROBERTO JARVIS MD Oct 14, 2021 10:05
[2021-10-14] MEDS: cefTRIAXone 1 GM PRE-MIX 50 ML IV SCH (11:57)
--- NOTE | 2021-10-14 12:38 | Physical Therapy Daily Note ---
PT Daily Note-Current Subjective Pt. in bed, says "ok" to therapy, however has a difficult time following therapist commands/cues. Pt. is confused. Mental Status Attachments: IV Transfers SCALE: Activities may be completed with or without assistive devices. 3-Bchtviixag-sjbmvgh completes the activity by him/herself with no assistance from a helper. 5-Set-up or Clean-up Assistance-helper sets up or cleans up; patient completes activity. [place] assists only prior to or following the activity. 4-Supervision or Touching Assistance-helper provides verbal cues and/or touching/steadying and/or contact guard assistance as patient completes activity. Assistance may be provided throughout the activity or intermittently. 3-Partial/Moderate Assistance-helper does LESS THAN HALF the effort. [place] lifts, holds or supports trunk or limbs, but provides less than half the effort. 2-Substantial/Maximal Assistance-helper does MORE THAN HALF the effort. [place] lifts or holds trunk or limbs and provides more than half the effort. 7-Tqwozdddb-frkzrw does ALL the effort. Patient does none of the effort to complete the activity. Or, the assistance of 2 or more helpers is required for the patient to complete the activity. If activity was not attempted, code reason: 7-Patient Refused. 9-Not Applicable-not attempted and the patient did not perform the activity before the current illness, exacerbation or injury. 10-Not Attempted due to Environmental Limitations-(lack of equipment, weather restraints, etc.). 88-Not Attempted due to Medical Conditions or Safety Concerns. Sit to Lying (QC): 6 Lying to Sitting/Side of Bed(Q: 6 Sit to Stand (QC): 4 Gait Training Does the Patient Walk?: Yes Distance: 20 ft Walk 10 feet (QC): 4 Gait Persons Needed: 1 Gait Assistive Device: None Pt. kept letting go of walker and more unsafe with use of device. Treatments ambulation in room, static stance for pericare Assessment Current Status: Good Progress, Fair Progress Pt. had 1 loss of balance during static stance for pericare but overall did well without use of assistive device. Pt. is very confused, incontinent of BM during session and does not verbalize BM to therapist. Pt. returned to bed post sess ion with call light and all needs met. PT Cloth Printer Helper Goals Snf Goals PT Cloth Printer Helper Goals Time Frame: Oct 20, 2021 Roll Left & Right (QC): 6 Sit to Lying (QC): 6 Lying-Sitting on Side/Bed(QC): 6 Sit to Stand (QC): 4 (SBA) Chair/Fdj-pl-Fnwzn Xfer(QC): 4 (SBA) Walk 10 feet (QC): 4 Walk 50ft with 2 Turns (QC): 4 Walk 150 ft (QC): 4 PT Plan Treatment/Plan Treatment Plan: Continue Plan of Care Treatment Plan: Education, Functional Activity Afsaneh, Functional Strength, Gait, Safety, Therapeutic Exercise, Transfers Treatment Duration: Oct 20, 2021 Frequency: 6 times per week Estimated Hrs Per Day: .25 hour per day Patient and/or Family Agrees t: Yes Time/GCodes Time In: 1130 Time Out: 1146 Total Billed Treatment Time: 16 Total Billed Treatment 1, FA 16' LIAM BARRIOS PT Oct 14, 2021 12:38
[2021-10-14] MEDS ORDERED: warFARin 1 MG (COUMADIN) TAB PO SCH (18:00)
[2021-10-14] MEDS: ACETAMINOPHEN 325 MG TABLET PO PRN (21:10)
[2021-10-14] MEDS: LORazepam INJ 2 MG/ML (ATIVAN) VIAL IVP PRN (23:49)
[2021-10-15] VITALS (7 sets, daily range): BP systolic 115–164; BP diastolic 77–91
[2021-10-15] MEDS: 1/2 NS W/KCL 20 MEQ/L 1,000 ML IV SCH ×2 (05:12→15:52)
[2021-10-15 06:33] LABS: HEMATOCRIT 35 % (40-54); HEMOGLOBIN 11.9 g/dL (13.3-17.7); MEAN CORPUSCULAR HEMOGLOBIN 31 pg (25-34); MEAN CORPUSCULAR HGB CONC 34 g/dL (32-36); MEAN CORPUSCULAR VOLUME 92 fL (80-99); MEAN PLATELET VOLUME 9.1 fL (9.0-12.2); PLATELET COUNT 274 10^3/uL (130-400); WHITE BLOOD COUNT 6.4 10^3/uL (4.3-11.0)
[2021-10-15 06:43] LABS: ALBUMIN 2.9 GM/DL (3.2-4.5); INR 1.3 (0.8-1.4); PROTHROMBIN TIME PATIENT 16.6 SEC (12.2-14.7)
[2021-10-15 06:44] LABS: POTASSIUM 3.8 MMOL/L (3.6-5.0)
[2021-10-15 06:45] LABS: CALCIUM 8.5 MG/DL (8.5-10.1)
[2021-10-15 06:46] LABS: TOTAL PROTEIN 5.4 GM/DL (6.4-8.2)
[2021-10-15 06:48] LABS: BILIRUBIN,TOTAL 0.6 MG/DL (0.1-1.0)
[2021-10-15 06:50] LABS: CREATININE SERUM 0.63 MG/DL (0.60-1.30)
[2021-10-15] MEDS: RT-ALBUTEROL HFA 8.5 GM INHALER IH SCH ×3 (07:34→21:26)
--- NOTE | 2021-10-15 09:51 | Progress Note ---
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 TODAY PT HAS BEEN MORE CALM AND STAYING IN HIS ROOM COMPARED TO YESTERDAY. STAFF REPORTS HE IS DOING WELL AND SLEEPING A LOT TODAY. Review of Systems General: No Chills; Fatigue Pulmonary: No Dyspnea; Cough Cardiovascular: No: Chest Pain Gastrointestinal: No: Nausea, Abdominal Pain Genitourinary: Incontinence Neurological: Weakness, Confusion All Other Systems Reviewed All Other Systems Reviewed: Yes Objective Exam Vital Signs Vital Signs Date Time Temp Pulse Resp B/P (MAP) Pulse Ox O2 Delivery O2 Flow Rate FiO2 10/15/21 08:02 35.8 60 16 149/83 (105) 93 Room Air 10/15/21 07:34 92 Room Air 10/15/21 03:52 36.8 56 20 158/85 (109) 93 Room Air 10/15/21 02:24 93 Room Air 10/14/21 23:06 36.5 64 20 158/90 (112) 92 Room Air 10/14/21 20:07 93 Room Air 10/14/21 20:00 Room Air 10/14/21 20:00 35.5 80 20 138/92 (107) 94 Room Air 10/14/21 16:00 36.5 71 20 146/90 (108) 92 Room Air 10/14/21 15:50 91 Room Air 10/14/21 12:18 36.0 76 22 125/82 (96) 91 Room Air I & O 10/15/21 07:00 Intake Total 780 ml Output Total 725 ml Balance 55 ml General Appearance: No Apparent Distress, WD/WN Eyes: Bilateral Eye Normal Inspection, Bilateral Eye PERRL, Bilateral Eye EOMI HEENT: PERRL/EOMI, Normal ENT Inspection Neck: Non Tender, Supple Respiratory: No Accessory Muscle Use, No Respiratory Distress, Decreased Breath Sounds (POOR EFFORT, NOT GOOD AT FOLLOWING COMMANDS) Cardiovascular: Regular Rate, Rhythm, Systolic Murmur Gastrointestinal: Normal Bowel Sounds, Non Tender, Soft Extremity: Non Tender, No Calf Tenderness, No Pedal Edema Neurologic/Psychiatric: Alert, Disoriented Skin: Warm/Dry Results Lab Laboratory Tests 10/15/21 06:03: White Blood Count 6.4, Red Blood Count 3.79L, Hemoglobin 11.9L, Hematocrit 35L, Mean Corpuscular Volume 92, Mean Corpuscular Hemoglobin 31, Mean Corpuscular Hemoglobin Concent 34, Red Cell Distribution Width 11.7, Platelet Count 274, Mean Platelet Volume 9.1, Prothrombin Time 16.6H, INR Comment 1.3, Sodium Level 137, Potassium Level 3.8, Chloride Level 108H, Carbon Dioxide Level 20L, Anion Gap 9, Blood Urea Nitrogen 10, Creatinine 0.63, Estimat Glomerular Filtration Rate 124, BUN/Creatinine Ratio 16, Glucose Level 87, Calcium Level 8.5, Corrected Calcium 9.4, Total Bilirubin 0.6, Aspartate Amino Transf (AST/SGOT) 13, Alanine Aminotransferase (ALT/SGPT) 27, Alkaline Phosphatase 49, Total Protein 5.4L, Albumin 2.9L Assessment/Plan Assessment/Plan Assessment and Plan COVID 19 PNEUMONIA ADVANCED DEMENTIA WEAKNESS SUPRATHERAPEUTIC INR ON ADMISSION ARTIFICIAL AORTIC VALVE COVID 19 PNEUMONIA - PT ON STEROIDS, ROCEPHIN, BREATHING TREATMENTS, WILL CONTINUE WITH SUPPORTIVE CARE WHILE IN HOSPITAL, PT APPEARS IMPROVED AND STABLE COMPARED TO REPORTS FROM ADMISSION. DEMENTIA -- PT WILL REQUIRE PLACEMENT FOR STRENTHENING AND SAFETY IF FAMILY IN AGREEMENT- WILL DEFER TO DR. KIM. - ATTEMPTED TO CALL PT'S , PHONE WAS UNAVAILABLE TO LEAVE A MESSAGE, "YOUR CALL CANNOT BE COMPLETED THE CALLED LIBERTARIAN IS BUSY" IS THE MESSAGE WITH EACH CALL PLACED TO PATIENT'S SPOUSE. SUPRATHERAPEUTIC INR ON ADMISSION WITH NEED FOR COUMADIN SINCE PT HAS ARTIFICIAL AORTIC VALVE - PT WAS GIVEN A SMALL DOSE OF VITAMIN K ON ADMISSION - INR 1.9 YESTERDAY, 1MG COUMADIN GIVEN LAST NIGHT AND INR IS 1.3 TODAY - THEREFORE - COUMADIN INCREASED TO 2MG, AND A BOLUS OF 2MG GIVEN THIS MORNING - CONTINUE TO MONITOR SERIAL INR DAILY ROBERTO JARVIS MD Oct 15, 2021 09:51
[2021-10-15] MEDS ORDERED: warFARin 2 MG (COUMADIN) TAB PO ONE (10:00)
[2021-10-15] MEDS: cefTRIAXone 1 GM PRE-MIX 50 ML IV SCH (13:02)
[2021-10-15] MEDS ORDERED: warFARin 2 MG (COUMADIN) TAB PO SCH (18:00)
[2021-10-15] MEDS: ACETAMINOPHEN 325 MG TABLET PO PRN (20:23)
[2021-10-16] MEDS: 1/2 NS W/KCL 20 MEQ/L 1,000 ML IV SCH ×2 (01:41→14:36)
[2021-10-16] MEDS: LORazepam INJ 2 MG/ML (ATIVAN) VIAL IVP PRN (01:41)
[2021-10-16] MEDS: RT-ALBUTEROL HFA 8.5 GM INHALER IH SCH ×4 (02:42→21:22)
[2021-10-16 04:00] VITALS: BP 141/85
[2021-10-16 05:50] LABS: INR 1.1 (0.8-1.4); PROTHROMBIN TIME PATIENT 14.8 SEC (12.2-14.7)
[2021-10-16 08:00] VITALS: BP 115/72
--- NOTE | 2021-10-16 11:47 | Physical Therapy Daily Note ---
PT Daily Note-Current Subjective Pt in bed upon arrival and initially denies PT d/t fatigue but then therapist informs him he can nap following PT then agrees to PT. Pt very confused this date. Pain Numeric Pain Scale: 0-No Pain Mental Status Patient Orientation: Confused Transfers SCALE: Activities may be completed with or without assistive devices. 5-Gnrrjkbnjb-zwxsfag completes the activity by him/herself with no assistance from a helper. 5-Set-up or Clean-up Assistance-helper sets up or cleans up; patient completes activity. [place] assists only prior to or following the activity. 4-Supervision or Touching Assistance-helper provides verbal cues and/or touching/steadying and/or contact guard assistance as patient completes activi ty. Assistance may be provided throughout the activity or intermittently. 3-Partial/Moderate Assistance-helper does LESS THAN HALF the effort. [place] lifts, holds or supports trunk or limbs, but provides less than half the effort. 2-Substantial/Maximal Assistance-helper does MORE THAN HALF the effort. [place] lifts or holds trunk or limbs and provides more than half the effort. 2-Atrxwaqhd-kpkjbk does ALL the effort. Patient does none of the effort to complete the activity. Or, the assistance of 2 or more helpers is required for the patient to complete the activity. If activity was not attempted, code reason: 7-Patient Refused. 9-Not Applicable-not attempted and the patient did not perform the activity before the current illness, exacerbation or injury. 10-Not Attempted due to Environmental Limitations-(lack of equipment, weather restraints, etc.). 88-Not Attempted due to Medical Conditions or Safety Concerns. Roll Left & Right (QC): 3 Sit to Lying (QC): 3 Lying to Sitting/Side of Bed(Q: 3 Pt able to complete TFs w/ CGA/Nam but requires frequent cues to remember what he is doing. Exercises Supine Ex: Ankle pumps, Quad Set, Rolling, Glut sets, Heel Slides, Scooting, Hip abd/add Supine Reps: 10 Seated Therapy Exercises: Reaching activity Treatments Pt performs dynamic balance activity at EOB and supine exs. Pt in bed upon departure w/ all needs met and call light nearby. Assessment Current Status: Fair Progress Pt requires frequent cues in order to remember what he is doing. Requires CGA/Nam for bed mobility to initiate movement. PT Customer Support Technician Goals Care Home Goals PT Customer Support Technician Goals Time Frame: Oct 20, 2021 Roll Left & Right (QC): 6 Sit to Lying (QC): 6 Lying-Sitting on Side/Bed(QC): 6 Sit to Stand (QC): 4 (SBA) Chair/Gvu-mn-Gdtlq Xfer(QC): 4 (SBA) Walk 10 feet (QC): 4 Walk 50ft with 2 Turns (QC): 4 Walk 150 ft (QC): 4 PT Plan Problem List Problem List: Activity Tolerance, Functional Strength, Safety Treatment/Plan Treatment Plan: Continue Plan of Care Treatment Plan: Education, Functional Activity Afsaneh, Functional Strength, Gait, Safety, Therapeutic Exercise, Transfers Treatment Duration: Oct 20, 2021 Frequency: 6 times per week Estimated Hrs Per Day: .25 hour per day Patient and/or Family Agrees t: Yes Safety Risks/Education Patient Education: Transfer Techniques, Correct Positioning, Safety Issues Teaching Recipient: Patient Teaching Methods: Discussion Response to Teaching: Reinforcement Needed Time/GCodes Time In: 920 Time Out: 935 Total Billed Treatment Time: 15 Total Billed Treatment 1, NEGRITA MURILLO PTA Oct 16, 2021 11:47
[2021-10-16 12:00] VITALS: BP 128/89
[2021-10-16] MEDS: cefTRIAXone 1 GM PRE-MIX 50 ML IV SCH (12:40)
--- NOTE | 2021-10-16 13:04 | Occupational Ther Daily Note ---
OT Current Status-Daily Note Subjective Pt very confused, difficulty following directions Appearance Returned to supine in bed, all needs within reach. Mental Status/Objective Patient Orientation: Person, Confused ADL-Treatment Therapy Code Descriptions/Definitions Functional Avery Measure: 0=Not Assessed/NA 4=Minimal Assistance 1=Total Assistance 5=Supervision or Setup 2=Maximal Assistance 6=Modified Avery 3=Moderate Assistance 7=Complete IndependenceSCALE: Activities may be completed with or without assistive devices. 7-Memnbpmyfg-ulphvoa completes the activity by him/herself with no assistance from a helper. 5-Set-up or Clean-up Assistance-helper sets up or cleans up; patient completes activity. [place] assists only prior to or following the activity. 4-Supervision or Touching Assistance-helper provides verbal cues and/or touching/steadying and/or contact guard assistance as patient completes activity. Assistance may be provided throughout the activity or intermittently. 3-Partial/Moderate Assistance-helper does LESS THAN HALF the effort. [place] lifts, holds or supports trunk or limbs, but provides less than half the effort. 2-Substantial/Maximal Assistance-helper does MORE THAN HALF the effort. [place] lifts or holds trunk or limbs and provides more than half the effort. 4-Japhjxlph-yamzyu does ALL the effort. Patient does none of the effort to complete the activity. Or, the assistance of 2 or more helpers is required for the patient to complete the activity. If activity was not attempted, code reason: 7-Patient Refused. 9-Not Applicable-not attempted and the patient did not perform the activity before the current illness, exacerbation or injury. 10-Not Attempted due to Environmental Limitations-(lack of equipment, weather restraints, etc.). 88-Not Attempted due to Medical Conditions or Safety Concerns. Other Treatment Pt very confused, requires repetition and simplification of commands. Able to sit EOB with CGA and several tactile cues to continue until fully sitting up. Attempt at performing UE exercises with goal to promote increased strength and rom needed for adls. Pt easily distracted and forgetful of what he is doing. He requires several tactile cues and AAROM to finish through set. Assist not due to weakness but poor comprehension/focus. He is able to perform all joints through full ROM when cued. Education OT Patient Education: Correct positioning, Exercise program, Progress toward Goal/Update tx plan, Purpose of tx/functional activities, Safety issues, Transfer techniques Teaching Recipient: Patient Teaching Methods: Discussion Response to Teaching: Unable to Comprehend, Reinforcement Needed OT [employer] Soa Developer Goals Oracle Soa Developer Goals Time Frame: Oct 27, 2021 Eating (QC): 5 Oral Hygiene (QC): 4 Toileting Hygiene (QC): 4 Shower/Bathe Self (QC): 3 Upper Body Dressing (QC): 3 Lower Body Dressing (QC): 2 On/Off Footwear (QC): 2 Additional Goals: 1-Demonstrate ADL Tasks, 2-Verbalize Understanding, 3- ImproveStrength/Afsaneh 1=Demonstrate adherence to instructed precautions during ADL tasks. 2=Patient will verbalize/demonstrate understanding of assistive devices/modifications for ADL. 3=Patient will improve strength/tolerance for activity to enable patient to perform ADL's. OT Education/Plan Problem List/Assessment Assessment: Decreased Activ Tolerance, Decreased Safety Aware, Decreased UE Strength, Impaired Cognition, Impaired Funct Balance, Impaired Self-Care Skills, Restricted Funct UE ROM Discharge Recommendations Plan/Recommendations: Continue POC Therapy Discharge Recommendati: 24 Hour Supervision Treatment Plan/Plan of Care Treatment,Training & Education: Yes Patient would benefit from OT for education, treatment and training to promote independence in ADL's, mobility, safety and/or upper extremity function for ADL's. Plan of Care: ADL Retraining, Functional Mobility, Orthotic Fitting/Training Treatment Duration: Oct 27, 2021 Frequency: 3 times per week (3-5 times per week) Estimated Hrs Per Day: .25 hour per day Rehab Potential: Guarded Time/GCodes Start Time: 10:07 Stop Time: 10:19 Total Time Billed (hr/min): 12 Billed Treatment Time 1, EX Marlen Landis OT Oct 16, 2021 13:04
--- NOTE | 2021-10-16 13:14 | Progress Note ---
Subjective Date Seen by a Provider: Oct 16, 2021 Time Seen by a Provider: 08:25 Subjective/Events-last exam Fwup COVID-19 pneumonia, respiratory distress, hypoxia, worsening dementia, supratherapeutic INR. Resting in bed. On room air. Objective Exam Vital Signs Date Time Temp Pulse Resp B/P (MAP) Pulse Ox O2 Delivery O2 Flow Rate FiO2 10/16/21 11:16 Room Air 10/16/21 08:00 35.7 67 20 115/72 (86) 93 Room Air 10/16/21 07:26 95 Room Air 10/16/21 04:00 36.3 59 18 141/85 (103) 94 Room Air 10/16/21 02:43 95 Room Air 10/15/21 23:31 36.9 62 18 164/91 (115) 93 Room Air 10/15/21 21:26 94 Room Air 10/15/21 20:23 Room Air 10/15/21 19:09 36.0 68 18 150/77 (101) 94 Room Air 10/15/21 15:37 36.9 76 18 132/85 (101) 93 Room Air 10/15/21 15:13 35.8 80 96 10/15/21 14:37 94 Room Air I & O 10/16/21 07:00 Intake Total 1460 ml Balance 1460 ml Capillary Refill : Less Than 3 Seconds General Appearance: No Apparent Distress Neck: Supple Respiratory: Lungs Clear Cardiovascular: Regular Rate, Rhythm Gastrointestinal: normal bowel sounds, non tender, soft Extremity: Non Tender, No Calf Tenderness, No Pedal Edema Neurologic/Psychiatric: Alert, Disoriented Results Lab Laboratory Tests 10/16/21 05:15: Prothrombin Time 14.8H, INR Comment 1.1 Assessment/Plan Assessment/Plan Assess & Plan/Chief Complaint 1. COVID-19 pneumonia--improving 2. Acute Respiratory Distress/Hypoxia--resolved 3. Dehydration--improved, appetite improved 4. End Stage/Worsening Dementia--awaiting placement at SNF 5. Weakness--PT/OT started, awaiting placement as above 6. Supratherapeutic INR--now subtherapeutic so will increase warfarin dose and start lovenox until INR improved Clinical Quality Measures Admission Status Admission Dx 1. COVID 19 Pneumonia--admit and will cover with decadron and rocephin and SVNs with albuterol, no lovenox or coumadin since INR is supratherapeutic 2. Acute Respiratory Distress/Hypoxia due to COVID 19 Pneumonia--admit on O2 at 3L NC 3. Worsening/End Stage Dementia--will look into SNF for DC 4. Weakness/Debility--start PT/OT 5. Aortic Valve Replacement--stable 6. Parkinson's--resume sinemet 7. BPH--resume tamsulosin 8. Supratherapeutic INR--hold coumadin, low dose of Vitamin K given today, repeat PT/INR in AM 9. Dehydration/Poor Oral Intake--hydrate and monitor 10. Hypokalemia--replace potassium ROXIE KIM DO Oct 16, 2021 13:14
[2021-10-16] MEDS: ENOXAPARIN 40 MG/0.4 ML (LOVENOX) SYR SC SCH (14:36)
[2021-10-16 15:31] VITALS: BP 134/88
[2021-10-16] MEDS ORDERED: warFARin 5 MG (COUMADIN) TAB PO SCH (18:00)
[2021-10-16 19:01] VITALS: BP 139/88
[2021-10-17 00:04] VITALS: BP 129/86
[2021-10-17] MEDS: RT-ALBUTEROL HFA 8.5 GM INHALER IH SCH ×2 (02:58→10:01)
[2021-10-17 03:13] VITALS: BP 146/70
[2021-10-17] MEDS: 1/2 NS W/KCL 20 MEQ/L 1,000 ML IV SCH (05:49)
[2021-10-17 06:42] LABS: INR 1.2 (0.8-1.4); PROTHROMBIN TIME PATIENT 15.6 SEC (12.2-14.7)
[2021-10-17 07:34] VITALS: BP 156/90
[2021-10-17] MEDS ORDERED: WRF5T PO (08:53)
[2021-10-17] MEDS ORDERED: ACET325T49 PO (08:53)
[2021-10-17] MEDS ORDERED: LORA-404 PO (08:55)
--- NOTE | 2021-10-17 08:56 | Discharge Inst-Skilled Nursing ---
Discharge Inst-Skilled NF Reconcile Patient Problems Problems Reviewed?: Yes Patient Instructions Patient Problems: COVID-19 Pneumonia End Stage/Worsening Dementia Hypertension Hx of Aortic Valve Replacement Consult/Follow Up/Orders Follow Up Appt.: 2weeks Skilled NF Admit to: [facility] [place] Certification ([facility]) I certify that SNF services are required to be given on an inpatient basis because of the above named patient's need for senior living care on a continuing basis for the conditions(s) for which he/she was receiving inpatient hospital services prior to his/her transfer to the SNF. Fdc Facility Order: Surface Hydrologist-Evaluate & Treat, Physical Therapy-Evaluate & Treat, Speech Language-Evaluate & Treat Oxygen Delivery Method: Room Air Discharge Diet: No Restrictions Daily Activity as Tolerated: Yes Resuscitation Status: Do Not Resuscitate New & Resume Previous Orders New & Resume Previous Orders PT/INR in 6 days Arlyn Lopez Oct 17, 2021 08:55 ARLYN LOPEZ DO Oct 17, 2021 08:56
[2021-10-17 11:11] VITALS: BP 136/93
[2021-10-17] MEDS: cefTRIAXone 1 GM PRE-MIX 50 ML IV SCH (12:36)
[2021-10-17] MEDS: ENOXAPARIN 40 MG/0.4 ML (LOVENOX) SYR SC SCH (12:37)
--- NOTE | 2021-10-17 13:45 | Physical Therapy Daily Note ---
PT Daily Note-Current Subjective Pt resting in bed. Pt pleasant and agreeable. Pt says "Yes" and "okay" to all instructions and prompting. Mental Status Patient Orientation: Person, Confused Attachments: IV Transfers SCALE: Activities may be completed with or without assistive devices. 6-Ghtlipalfd-uhwvjew completes the activity by him/herself with no assistance from a helper. 5-Set-up or Clean-up Assistance-helper sets up or cleans up; patient completes activity. [place] assists only prior to or following the activity. 4-Supervision or Touching Assistance-helper provides verbal cues and/or touching/steadying and/or contact guard assistance as patient completes activity. Assistance may be provided throughout the activity or intermittently. 3-Partial/Moderate Assistance-helper does LESS THAN HALF the effort. [place] lifts, holds or supports trunk or limbs, but provides less than half the effort. 2-Substantial/Maximal Assistance-helper does MORE THAN HALF the effort. [place] lifts or holds trunk or limbs and provides more than half the effort. 9-[place]-coxwrw does ALL the effort. Patient does none of the effort to complete the activity. Or, the assistance of 2 or more helpers is required for the patient to complete the activity. If activity was not attempted, code reason: 7-Patient Refused. 9-Not Applicable-not attempted and the patient did not perform the activity before the current illness, exacerbation or injury. 10-Not Attempted due to Environmental Limitations-(lack of equipment, weather restraints, etc.). 88-Not Attempted due to Medical Conditions or Safety Concerns. Exercises Supine Ex: Heel Slides, Short Arc Quads Supine Reps: 15 Treatments Pt able to transfer to EOB and stand at bedside with prompting by taking pts hands and guiding him. Pt automatically stands when you take him by the hands. Pt amb to BR and stood to urinate. Back to bed with ambu alarm activated. Pt resting with call light and all needs met. Assessment Pt pleasant and agreeable, requires continual vc's and tactile prompting for functional mobility. Pt elfego very well. PT Penitentiary Goals Penitentiary Goals PT Infrastructure Manager Goals Time Frame: Oct 20, 2021 Roll Left & Right (QC): 6 Sit to Lying (QC): 6 Lying-Sitting on Side/Bed(QC): 6 Sit to Stand (QC): 4 (SBA) Chair/Ygq-yu-Zgwge Xfer(QC): 4 (SBA) Walk 10 feet (QC): 4 Walk 50ft with 2 Turns (QC): 4 Walk 150 ft (QC): 4 PT Plan Treatment/Plan Treatment Plan: Continue Plan of Care Treatment Plan: Education, Functional Activity Afsaneh, Functional Strength, Gait, Safety, Therapeutic Exercise, Transfers Treatment Duration: Oct 20, 2021 Frequency: 6 times per week Estimated Hrs Per Day: .25 hour per day Patient and/or Family Agrees t: Yes Time/GCodes Time In: 930 Time Out: 955 Total Billed Treatment Time: 25 Total Billed Treatment 1, ther ex 10', gait15' STEPHANIE RUSSELL CPTA Oct 17, 2021 13:45
[2021-10-17 14:45] VITALS: BP 136/93
== END 2021-10-17 14:45 | DRG 177 ==
LOC: EDUNIT# 10:05 → ER 10:06 → 4TH 15:15 → OBSVTOIN 10-13 12:11
PROVIDERS: ADMIT Family Medicine; ATTEND Family Medicine
PROC: 8E0ZXY6 Isolation (ICD-10-PCS; principal; 2021-10-13)
DX: U07.1 COVID-19 (principal); J12.82 Pneumonia due to coronavirus disease 2019; J96.01 Acute respiratory failure with hypoxia; E86.0 Dehydration; G30.1 Alzheimer's disease with late onset; F02.80 Dementia in other diseases classified elsewhere, unspecified severity, without behavioral disturbance, psychotic disturbance, mood disturbance, and anxiety; Z66 Do not resuscitate; R53.1 Weakness; N40.0 Benign prostatic hyperplasia without lower urinary tract symptoms; E87.6 Hypokalemia; Z73.0 Burn-out; Z95.2 Presence of prosthetic heart valve; Z88.0 Allergy status to penicillin; Z79.899 Other long term (current) drug therapy; Z79.01 Long term (current) use of anticoagulants; Z87.891 Personal history of nicotine dependence
CPT/HCPCS: 36415; 71045; 80048; 80053; 82805; 84145; 85025; 85027; 85379; 85610; 86141; 94640; 94664; 94760; 96374; G0378

== ENCOUNTER 2022-01-28 19:26 | Emergency (ER) | payer MEDICARE ==
[~2022-01-28 19:26] MED LIST changes: +ACET325T49 PO; +LORA-404 PO; +WRF5T PO
--- NOTE | 2022-01-28 19:41 | ED Fall/Injury ---
General Stated Complaint: FALL Source: patient, EMS, detention records Exam Limitations: clinical condition (Parkinson's dementia) History of Present Illness Date Seen by Provider: Jan 28, 2022 Time Seen by Provider: 19:22 Initial Comments Patient to the ER by EMS from [facility] [place] with a unwitnessed fall down for less than a few minutes according to staff. He has multiple histories of falls and bruises with various stages of healing along his head. He has at baseline word salad and dementia and orientation to name only. Patient is alert answers to his name but does not know where he is. He does not contribute a lot to history but states he is not having any pain anywhere. C-collar was placed by EMS. He is on warfarin for valvular atrial fibrillation. Patient of Dr. KIM. Allergies and Home Medications Allergies Coded Allergies: Penicillins (Unverified Allergy, Mild, 03/01/09) penicillin G (Verified Allergy, Unknown, 10/30/08) Patient Home Medication List Home Medication List Reviewed: Yes Acetaminophen (Acetaminophen) 325 Mg Tablet, 650 MG PO Q6H PRN for PAIN-MILD (1- 4)/TEMP Prescribed by: ROXIE KIM on 10/17/21 0853 Lorazepam (Ativan) 0.5 Mg Tablet, 0.5 MG PO TID PRN for ANXIETY Prescribed by: ROXIE KIM on 10/17/21 0855 Metoprolol Tartrate (Metoprolol Tartrate 50 Mg) 50 Mg Tablet, 100 MG PO HS, (Reported) Entered as Reported by: ROSANNA WILLSON on 07/31/13 1621 Senna (Senokot S) 1 Ea Tablet, 2 EA PO BID, (Reported) Entered as Reported by: TONE ESPINOZA on 08/02/13 1032 Warfarin Sodium (Jantoven) 5 Mg Tablet, 5 MG PO DAILY@1800 Prescribed by: ROXIE KIM on 10/17/21 0853 [Namenda Xr 21MG] , 28 MG PO HS, (Reported) Entered as Reported by: ROSANNA WILLSON on 07/31/13 1629 Review of Systems Review of Systems Constitutional: No chills, No diaphoresis Eyes: Denies Blindness, Denies Blurred Vision Ears, Nose, Mouth, Throat: denies ear pain, denies ear discharge Respiratory: No cough, No short of breath Cardiovascular: No chest pain, No edema Gastrointestinal: No abdominal pain, No nausea, No vomiting All Other Systems Reviewed Negative Unless Noted: Yes Past Ftfutwn-Cxdpfq-Yctftu Hx Patient Social History Tobacco Use?: No Substance use?: No Immunizations Up To Date First/Initial COVID19 Vaccinat: june Second COVID19 Vaccination Cristóbal: july Past Medical History Surgery/Hospitalization HX: ARTIFICIAL AORTIC VALVE DEVICE PLACED Reproductive Disorders: No Physical Exam Vital Signs Capillary Refill : Height, Weight, BMI Height: '" Weight: 228lbs. oz. 103.142864tg; 26.81 BMI Method: General Appearance: WD/WN, no apparent distress HEENT: PERRL/EOMI, pharynx normal Neck: full range of motion, normal inspection Cardiovascular: normal peripheral pulses, regular rate, rhythm Respiratory: lungs clear, normal breath sounds, no respiratory distress, no accessory muscle use Peripheral Pulses: 2+ Dorsalis Pedis (R), 2+ Left Dors-Pedis (L), 2+ Radial Pulses (R), 2+ Radial Pulses (L) Gastrointestinal: normal bowel sounds, non tender, soft Pelvic: normal external exam (Nontender to palpation bilateral hips) Back: normal inspection, no vertebral tenderness Extremities: normal range of motion, non-tender, normal inspection, pelvis stable, pedal edema (Trace bipedal edema nonerythematous) Neurologic/Psychiatric: alert, normal mood/affect, other (Oriented to person, redirectable and follows commands.) Skin: normal color, warm/dry, ecchymosis (Forehead has a couple of older ecchymoses and hematomas) Holly Coma Score Best Eye Response: (4) Open Spontaneously Best Verbal Response: (4) Confused Conversation Best Motor Response: (6) Obeys Commands Progress/Results/Core Measures Results/Orders Lab Results Laboratory Tests Test 01/28/22 20:19 01/28/22 20:45 Range/Units White Blood Count 6.5 4.3-11.0 10^3/uL Red Blood Count 3.61 L 4.30-5.52 10^6/uL Hemoglobin 11.4 L 13.3-17.7 g/dL Hematocrit 35 L 40-54 % Mean Corpuscular Volume 97 80-99 fL Mean Corpuscular Hemoglobin 32 25-34 pg Mean Corpuscular Hemoglobin Concent 33 32-36 g/dL Red Cell Distribution Width 12.5 10.0-14.5 % Platelet Count 173 130-400 10^3/uL Mean Platelet Volume 9.9 9.0-12.2 fL Immature Granulocyte % (Auto) 0 % Neutrophils (%) (Auto) 66 42-75 % Lymphocytes (%) (Auto) 23 12-44 % Monocytes (%) (Auto) 9 0-12 % Eosinophils (%) (Auto) 1 0-10 % Basophils (%) (Auto) 0 0-10 % Neutrophils # (Auto) 4.3 1.8-7.8 10^3/uL Lymphocytes # (Auto) 1.5 1.0-4.0 10^3/uL Monocytes # (Auto) 0.6 0.0-1.0 10^3/uL Eosinophils # (Auto) 0.1 0.0-0.3 10^3/uL Basophils # (Auto) 0.0 0.0-0.1 10^3/uL Immature Granulocyte # (Auto) 0.0 0.0-0.1 10^3/uL Prothrombin Time 24.3 H 12.2-14.7 SEC INR Comment 2.1 H 0.8-1.4 Sodium Level 139 135-145 MMOL/L Potassium Level 3.9 3.6-5.0 MMOL/L Chloride Level 109 H 98-107 MMOL/L Carbon Dioxide Level 20 L 21-32 MMOL/L Anion Gap 10 5-14 MMOL/L Blood Urea Nitrogen 22 H 7-18 MG/DL Creatinine 0.82 0.60-1.30 MG/DL Estimat Glomerular Filtration Rate 92 BUN/Creatinine Ratio 27 Glucose Level 99 70-105 MG/DL Calcium Level 8.9 8.5-10.1 MG/DL Corrected Calcium 9.3 8.5-10.1 MG/DL Total Bilirubin 0.4 0.1-1.0 MG/DL Aspartate Amino Transf (AST/SGOT) 22 5-34 U/L Alanine Aminotransferase (ALT/SGPT) 18 0-55 U/L Alkaline Phosphatase 54 40-136 U/L Total Protein 6.0 L 6.4-8.2 GM/DL Albumin 3.5 3.2-4.5 GM/DL Urine Color YELLOW Urine Clarity SL CLOUDY Urine pH 6.0 5-9 Urine Specific Spring 1.025 H 1.016-1.022 Urine Protein NEGATIVE NEGATIVE Urine Glucose (UA) NEGATIVE NEGATIVE Urine Ketones NEGATIVE NEGATIVE Urine Nitrite NEGATIVE NEGATIVE Urine Bilirubin NEGATIVE NEGATIVE Urine Urobilinogen 0.2 < = 1.0 MG/DL Urine Leukocyte Esterase NEGATIVE NEGATIVE Urine RBC (Auto) 2+ H NEGATIVE Urine RBC 5-10 H /HPF Urine WBC 0-2 /HPF Urine Squamous Epithelial Cells NONE /HPF Urine Renal Epithelial Cells 0-2 /HPF Urine Crystals PRESENT H /LPF Urine Calcium Oxalate Crystals FEW H /LPF Urine Bacteria NEGATIVE /HPF Urine Casts NONE /LPF Urine Mucus SMALL H /LPF Urine Culture Indicated NO My Orders Orders - BRIANA ALBRIGHT Ct Head/Cervical Spine Wo (01/28/22 19:32) Cbc With Automated Diff (01/28/22 19:32) Comprehensive Metabolic Panel (01/28/22 19:32) Protime With Inr (01/28/22 19:32) Ua Culture If Indicated (01/28/22 19:32) Progress Progress Note #1: Time: 19:[address] of the head and labs. Urine if he can provide it but he is not giving us any urinary complaints or having any suprapubic tenderness. Clinically we cleared his c-collar based on mechanism and his full range of motion and nontenderness in his neck. Progress Note #2: Time: 20:12 Progress Note The patient is redirectable but has a tendency to get up and wander. We have placed a sitter at the bedside with him after he returned from CT Diagnostic Imaging Diagonstic Imaging: CT Plain Films/CT/US/NM/MRI: c-spine, head Comments [facility] [place] NAME: CHARLES JEREZ [facility] REC#: [id number] PT STATUS: REG ER : 1945 PHYSICIAN: BRIANA ALBRIGHT MD ADMIT DATE: 01/28/22/ER Signed Date of Exam:01/28/22 CT HEAD/CERVICAL SPINE WO PROCEDURE: CT head and CT cervical spine without contrast. TECHNIQUE: Multiple contiguous axial images were obtained through the brain and cervical spine without the use of intravenous contrast. Sagittal and coronal reformations through the cervical spine were then performed. Auto Exposure Controls were utilized during the CT exam to meet ALARA standards for radiation dose reduction. INDICATION: Fall. Head and neck pain. COMPARISON: 05/21/2012. FINDINGS: CT HEAD: No large acute territorial ischemia, mass or hemorrhage. No midline shift or mass effect. Decreased attenuation is seen in the periventricular and subcortical white matter. The ventricles and cortical sulci are prominent. The basilar cisterns are patent and unremarkable. Scalp contusion is seen overlying the right frontal region. The calvarium is intact. The visualized paranasal sinuses are clear. CT CERVICAL SPINE: No acute fracture or dislocation is seen in the cervical spine. No focal osseous lesions. There is reversal of the normal lordotic curvature of the cervical spine centered at the C3 level. Vertebral body heights are well maintained. The craniocervical junction is well maintained. Mild degenerative changes are seen in the cervical spine with disc osteophyte complexes and uncovertebral arthropathy. Soft tissues of the neck are unremarkable. The included lung apices are clear. IMPRESSION: 1. No hemorrhage or focal intra-axial mass. No CT evidence of large acute territorial ischemia. 2. No acute fracture or dislocation in the cervical spine. 3. Scalp contusion overlying the right frontal region. No associated calvarial fracture. 4. Generalized parenchymal volume loss with chronic microvascular disease. Dictated by: Dictated on workstation # [id number] Dict: 01/28/221999 Trans: 01/28/222004 PJE [id number] Interpreted by: WALLACE DE JESUS DO Electronically signed by: WALLACE DE JESUS DO 01/28/222004 Reviewed: Reviewed by Me Departure Impression Primary Impression: Fall Qualified Codes: W19.XXXA - Unspecified fall, initial encounter Additional Impression: Hematoma Disposition: 01 HOME, SELF-CARE Condition: Stable Departure-Patient Inst. Decision time for Depature: 21:18 Referrals: ROXIE KIM DO (PCP/Family) Primary Care Physician Patient Instructions: Preventing Falls ED Add. Discharge Instructions: I encourage you to discuss with the primary care team the wisdom of continuing blood thinners in the presence of frequent falls. Return to the ER for decreased level of consciousness or worsening symptoms. Ice pack to hematomas as necessary for swelling and pain. BRIANA ALBRIGHT J Jan 28, 2022 19:41
--- NOTE | 2022-01-28 20:04 | Diagnostic Imaging Report ---
PROCEDURE: CT head and CT cervical spine without contrast. TECHNIQUE: Multiple contiguous axial images were obtained through the brain and cervical spine without the use of intravenous contrast. Sagittal and coronal reformations through the cervical spine were then performed. Auto Exposure Controls were utilized during the CT exam to meet ALARA standards for radiation dose reduction. INDICATION: Fall. Head and neck pain. COMPARISON: 05/21/2012. FINDINGS: CT HEAD: No large acute territorial ischemia, mass or hemorrhage. No midline shift or mass effect. Decreased attenuation is seen in the periventricular and subcortical white matter. The ventricles and cortical sulci are prominent. The basilar cisterns are patent and unremarkable. Scalp contusion is seen overlying the right frontal region. The calvarium is intact. The visualized paranasal sinuses are clear. CT CERVICAL SPINE: No acute fracture or dislocation is seen in the cervical spine. No focal osseous lesions. There is reversal of the normal lordotic curvature of the cervical spine centered at the C3 level. Vertebral body heights are well maintained. The craniocervical junction is well maintained. Mild degenerative changes are seen in the cervical spine with disc osteophyte complexes and uncovertebral arthropathy. Soft tissues of the neck are unremarkable. The included lung apices are clear. IMPRESSION: 1. No hemorrhage or focal intra-axial mass. No CT evidence of large acute territorial ischemia. 2. No acute fracture or dislocation in the cervical spine. 3. Scalp contusion overlying the right frontal region. No associated calvarial fracture. 4. Generalized parenchymal volume loss with chronic microvascular disease. Dictated by: Dictated on workstation # [id number]
[2022-01-28 20:31] LABS: BASOPHILS % (AUTO) 0 % (0-10); EOSINOPHILS # (AUTO) 0.1 10^3/uL (0.0-0.3); EOSINOPHILS % (AUTO) 1 % (0-10); HEMATOCRIT 35 % (40-54); HEMOGLOBIN 11.4 g/dL (13.3-17.7); LYMPHOCYTES # (AUTO) 1.5 10^3/uL (1.0-4.0); LYMPHOCYTES % (AUTO) 23 % (12-44); MEAN CORPUSCULAR HEMOGLOBIN 32 pg (25-34); MEAN CORPUSCULAR HGB CONC 33 g/dL (32-36); MEAN CORPUSCULAR VOLUME 97 fL (80-99); MEAN PLATELET VOLUME 9.9 fL (9.0-12.2); MONOCYTES # (AUTO) 0.6 10^3/uL (0.0-1.0); MONOCYTES % (AUTO) 9 % (0-12); NEUTROPHILS # (AUTO) 4.3 10^3/uL (1.8-7.8); NEUTROPHILS % (AUTO) 66 % (42-75); PLATELET COUNT 173 10^3/uL (130-400); WHITE BLOOD COUNT 6.5 10^3/uL (4.3-11.0)
[2022-01-28 20:37] LABS: INR 2.1 (0.8-1.4); PROTHROMBIN TIME PATIENT 24.3 SEC (12.2-14.7)
[2022-01-28 20:50] LABS: BILIRUBIN,URINE NEGATIVE (NEGATIVE); CLARITY,URINE SL CLOUDY; COLOR,URINE YELLOW; GLUCOSE, URINE (UA) NEGATIVE (NEGATIVE); KETONES,URINE NEGATIVE (NEGATIVE); LEUKOCYTE ESTERASE ,URINE NEGATIVE (NEGATIVE); NITRITE,URINE NEGATIVE (NEGATIVE); PROTEIN,URINE NEGATIVE (NEGATIVE)
[2022-01-28 20:57] LABS: ALBUMIN 3.5 GM/DL (3.2-4.5); BILIRUBIN,TOTAL 0.4 MG/DL (0.1-1.0); CALCIUM 8.9 MG/DL (8.5-10.1); CREATININE SERUM 0.82 MG/DL (0.60-1.30); POTASSIUM 3.9 MMOL/L (3.6-5.0)
[2022-01-28 21:02] LABS: BACTERIA,URINE NEGATIVE /HPF; CALCIUM OXALATE CRYSTALS,UR FEW /LPF; RENAL EPITHELIAL CELLS,URINE 0-2 /HPF; WBC,URINE 0-2 /HPF
[2022-01-28 22:00] VITALS: BP 129/78
== END 2022-01-28 22:00 | disposition home or self-care (01) ==
LOC: EDUNIT# 19:28 → ER 19:30
DX: S00.83XA Contusion of other part of head, initial encounter (principal); W19.XXXA Unspecified fall, initial encounter
CPT/HCPCS: 36415; 70450; 72125; 80053; 81000; 85025; 85610

== ENCOUNTER 2022-02-04 02:04 | Emergency (ER) | payer MEDICARE ==
--- NOTE | 2022-02-04 02:24 | ED Fall/Injury ---
General Chief Complaint: Trauma-Non Activation Stated Complaint: FALL Source: patient Exam Limitations: no limitations History of Present Illness Date Seen by Provider: Feb 04, 2022 Time Seen by Provider: 02:03 Initial Comments Patient presents ER by private conveyance with chief complaint per EMS that he was found by staff on his knees by his bed not acting like himself. Patient has late-stage dementia and is not oriented to anything but name at baseline. Coy littlejohn states he is not having any pain nausea or shortness of air right now. He is nontender on examination. He is covered in bruises from his multiple falls. He is on warfarin. Allergies and Home Medications Allergies Coded Allergies: Penicillins (Unverified Allergy, Mild, 03/01/09) penicillin G (Verified Allergy, Unknown, 10/30/08) Patient Home Medication List Home Medication List Reviewed: Yes Acetaminophen (Acetaminophen) 325 Mg Tablet, 650 MG PO Q6H PRN for PAIN-MILD (1- 4)/TEMP Prescribed by: ROXIE KIM on 10/17/21 0853 Lorazepam (Ativan) 0.5 Mg Tablet, 0.5 MG PO TID PRN for ANXIETY Prescribed by: ROXIE KIM on 10/17/21 0855 Metoprolol Tartrate (Metoprolol Tartrate 50 Mg) 50 Mg Tablet, 100 MG PO HS, (Reported) Entered as Reported by: ROSANNA WILLSON on 07/31/13 1621 Senna (Senokot S) 1 Ea Tablet, 2 EA PO BID, (Reported) Entered as Reported by: TONE ESPINOZA on 08/02/13 1032 Warfarin Sodium (Jantoven) 5 Mg Tablet, 5 MG PO DAILY@1800 Prescribed by: ROXIE KIM on 10/17/21 0853 [Namenda Xr 21MG] , 28 MG PO HS, (Reported) Entered as Reported by: ROSANNA WILLSON on 07/31/13 1629 Review of Systems Review of Systems Constitutional: No chills, No diaphoresis Eyes: Denies Blurred Vision, Denies Decreased Acuity Ears, Nose, Mouth, Throat: denies ear discharge, denies nose pain Respiratory: No dyspnea on exertion, No phlegm, No short of breath Cardiovascular: No edema, No palpitations Gastrointestinal: No abdominal pain, No nausea, No vomiting Genitourinary: No discharge, No dysuria Musculoskeletal: No back pain, No joint pain All Other Systems Reviewed Negative Unless Noted: Yes Past Ybznhho-Xdbrdr-Omfwht Hx Patient Social History Tobacco Use?: No Use of E-Cig and/or Vaping dev: No Immunizations Up To Date First/Initial COVID19 Vaccinat: june COVID19 Vaccination Cristóbal: july Past Medical History Surgery/Hospitalization HX: ARTIFICIAL AORTIC VALVE DEVICE PLACED Reproductive Disorders: No Physical Exam Vital Signs Vital Signs - First Documented 02/04/22 02:08 Temp 36.2 Pulse 65 Resp 16 B/P (MAP) 139/70 (93) Pulse Ox 96 O2 Delivery Room Air Capillary Refill : Height, Weight, BMI Height: '" Weight: 228lbs. oz. 103.814939lu; 26.81 BMI Method: General Appearance: WD/WN, no apparent distress HEENT: PERRL/EOMI (4mm), normal ENT inspection, TMs normal (Negative for macedo sign), pharynx normal, other (Ecchymoses on the face of various ages without depressed skull fracture or hematoma) Neck: non-tender, full range of motion, supple, normal inspection Cardiovascular: normal peripheral pulses, regular rate, rhythm Respiratory: chest non-tender, lungs clear, normal breath sounds, no respiratory distress, no accessory muscle use Peripheral Pulses: 2+ Radial Pulses (R), 2+ Radial Pulses (L) Gastrointestinal: normal bowel sounds, non tender, soft Extremities: normal range of motion, non-tender, normal capillary refill Neurologic/Psychiatric: alert, normal mood/affect, other (Answers to self and can answer some questions but not orienting questions. At baseline for the last time this provider saw him a few weeks ago.) Holly Coma Score Best Eye Response: (4) Open Spontaneously Best Verbal Response: (5) Oriented Best Motor Response: (6) Obeys Commands Aristes Total: 15 Progress/Results/Core Measures Results/Orders My Orders Orders - BRIANA ALBRIGHT Ct Head/Cervical Spine Wo (02/04/22 02:18) Vital Signs/I&O 02/04/22 02:08 Temp 36.2 Pulse 65 Resp 16 B/P (MAP) 139/70 (93) Pulse Ox 96 O2 Delivery Room Air Progress Progress Note : Time: 02:[address] head and C-spine. Patient is not tender when we push all over all of his joints. He giggles at jokes that he tells but it seems to be at baseline for self. We still would suggest he discontinue the use of warfarin given his frequent falls. Diagnostic Imaging Diagonstic Imaging: CT Plain Films/CT/US/NM/MRI: c-spine, head Comments No evidence of acutely displaced fracture or dislocation within the cervical spine. Degenerative changes. If further concern consider an MRI. Reviewed: Reviewed Night Hawk Study, Reviewed by Me Departure Impression Primary Impression: Fall Qualified Codes: W19.XXXA - Unspecified fall, initial encounter Disposition: HOME, SELF-CARE Condition: Stable Departure-Patient Inst. Decision time for Depature: 03:15 Referrals: ROXIE KIM DO (PCP/Family) Primary Care Physician Patient Instructions: Minor Head Injury (DC) Add. Discharge Instructions: Talk to the primary care doctor about discontinuing the use of warfarin All discharge instructions reviewed with patient and/or family. Voiced understanding. BRIANA ALBRIGHT Feb 04, 2022 02:24
[2022-02-04 04:00] VITALS: BP 133/71
--- NOTE | 2022-02-04 07:11 | Diagnostic Imaging Report ---
PROCEDURE: CT head and CT cervical spine without contrast. TECHNIQUE: Multiple contiguous axial images were obtained through the brain and cervical spine without the use of intravenous contrast. Sagittal and coronal reformations through the cervical spine were then performed. Auto Exposure Controls were utilized during the CT exam to meet ALARA standards for radiation dose reduction. INDICATION: Fall with head and neck pain. COMPARISON: 01/28/2022. DISCUSSION: HEAD: Evolving right frontal scalp hematoma is decreased. Diffuse brain volume loss is stable. White matter hypoattenuation is nonspecific though not greater than expected for age related chronic small vessel ischemic disease, stable. No acute intracranial hemorrhage, mass, midline shift, or hydrocephalus. The orbits, sinuses, mastoid air cells, and calvarium are unremarkable. CERVICAL SPINE: Straightening of the normal cervical lordosis is again noted. Grade 1 anterolisthesis of C2 on C3 is stable. Advanced degenerative disc disease and facet arthropathy are noted diffusely. No acute fracture identified. The paraspinal soft tissues are unremarkable. IMPRESSION: 1. Decreasing right forehead hematoma. No fracture. 2. Stable senescent changes as described. No acute intracranial abnormality identified. 3. Stable advanced degenerative disease within the cervical spine. No acute fracture. 4. I agree with the preliminary report. Dictated by: Dictated on workstation # [id number]
== END 2022-02-04 04:00 | disposition home or self-care (01) ==
LOC: ER 02:04 → EDUNIT# 02:04 → ER 04:00
DX: S00.83XA Contusion of other part of head, initial encounter (principal); Z79.01 Long term (current) use of anticoagulants; W19.XXXA Unspecified fall, initial encounter
CPT/HCPCS: 70450; 72125

== ENCOUNTER 2022-02-05 20:57 | Emergency (ER) | payer MEDICARE ==
--- NOTE | 2022-02-05 21:05 | ED Head Injury ---
General Stated Complaint: FALL Source: patient Exam Limitations: no limitations (EDILMA CARTAGENA APRN) History of Present Illness Date Seen by Provider: Feb 05, 2022 Time Seen by Provider: 21:02 Initial Comments To ER by [facility] from [facility] [place] with reports of a fall. He fell on 01/28 then a few days later, then again today. He hit his head during each of these. He is on warfarin for a mechanical heart valve. He is very demented and ambulates around the unit nearly constantly when he is awake Occurred: this evening Severity: moderate Location: frontal Method of Injury: fell Loss of Consciousness: no loss of consciousness Associated Systoms: Denies Symptoms (EDILMA CARTAGENA APRN) Allergies and Home Medications Allergies Coded Allergies: Penicillins (Unverified Allergy, Mild, 03/01/09) penicillin G (Verified Allergy, Unknown, 10/30/08) Patient Home Medication List Home Medication List Reviewed: Yes (EDILMA CARTAGENA APRN) Acetaminophen (Acetaminophen) 325 Mg Tablet, 650 MG PO Q6H PRN for PAIN-MILD (1- 4)/TEMP Prescribed by: ROXIE KIM on 10/17/21 0853 Lorazepam (Ativan) 0.5 Mg Tablet, 0.5 MG PO TID PRN for ANXIETY Prescribed by: ROXIE KIM on 10/17/21 0855 Metoprolol Tartrate (Metoprolol Tartrate 50 Mg) 50 Mg Tablet, 100 MG PO HS, (Reported) Entered as Reported by: ROSANNA WILLSON on 07/31/13 1621 Senna (Senokot S) 1 Ea Tablet, 2 EA PO BID, (Reported) Entered as Reported by: TONE ESPINOZA on 08/02/13 1032 Warfarin Sodium (Jantoven) 5 Mg Tablet, 5 MG PO DAILY@1800 Prescribed by: ROXIE KIM on 10/17/21 0853 [Namenda Xr 21MG] , 28 MG PO HS, (Reported) Entered as Reported by: ROSANNA WILLSON on 07/31/13 1629 Review of Systems Review of Systems Constitutional: see HPI Eyes: No Symptoms Reported Ears, Nose, Mouth, Throat: no symptoms reported Respiratory: no symptoms reported Cardiovascular: no symptoms reported Genitourinary: no symptoms reported Musculoskeletal: no symptoms reported Skin: no symptoms reported Psychiatric/Neurological: No Symptoms Reported Endocrine: No Symptoms Reported Hematologic/Lymphatic: No Symptoms Reported (EDILMA CARTAGENA APRN) Past Bqqvhmn-Tbujrk-Oqmfue Hx Immunizations Up To Date First/Initial COVID19 Vaccinat: june Second COVID19 Vaccination Cristóbal: july (EDILMA CARTAGENA APRN) Past Medical History Surgery/Hospitalization HX: ARTIFICIAL AORTIC VALVE DEVICE PLACED Reproductive Disorders: No (EDILMA CARTAGENA APRN) Physical Exam Vital Signs Vital Signs - First Documented 02/05/22 20:57 Temp 36.3 Pulse 84 Resp 16 B/P (MAP) 117/81 (93) Pulse Ox 97 O2 Delivery Room Air (DESTINY GIVENS DO) Vital Signs Capillary Refill : (EDILMA CARTAGENA APRN) Height, Weight, BMI Height: '" Weight: 228lbs. oz. 103.120061sx; 26.81 BMI Method: General Appearance: WD/WN, no apparent distress, other (Very demented, alert, smiling. Voices no complaints. Wants to ambulate around the ER, very difficult to keep in bed.) HEENT: PERRL/EOMI, normal ENT inspection Neck: non-tender, full range of motion Respiratory: no respiratory distress, no accessory muscle use Gastrointestinal: normal bowel sounds, non tender Extremities: normal range of motion, non-tender Psychiatric: alert, other (Disoriented. He knows his name but that is about it.) Crainal Nerves: normal hearing, normal speech, PERRL Motor/Sensory: no motor deficit, no sensory deficit Confused and very restless but easily redirectable (EDILMA CARTAGENA APRN) Sarles Coma Score Best Eye Response: (4) Open Spontaneously Best Verbal Response: (4) Confused Conversation Best Motor Response: (6) Obeys Commands Holly Total: 14 (EDILMA CARTAGENA APRN) Departure Impression Primary Impression: Dementia Additional Impressions: Fall Anticoagulant long-term use Disposition: 01 HOME, SELF-CARE Condition: Stable Departure-Patient Inst. Decision time for Depature: 21:05 (EDILMA CARTAGENA APRN) Referrals: ROXIE KIM DO (PCP/Family) Primary Care Physician Patient Instructions: Preventing Falls ED ATTENDING PHYSICIAN NOTE: I WAS PHYSICALLY PRESENT ER PHYSICIAN, BUT I WAS NOT INVOLVED IN ANY DECISION MAKING OR ANY CARE OF THIS PATIENT. (DESTINY GIVENS DO) EDILMA CARTAGENA [employer] INSTRUCTOR Feb 05, 2022 21:05 DESTINY GIVENS DO Feb 07, 2022 05:45
--- NOTE | 2022-02-05 21:23 | Diagnostic Imaging Report ---
PROCEDURE: CT head and CT cervical spine without contrast. TECHNIQUE: Multiple contiguous axial images were obtained through the brain and cervical spine without the use of intravenous contrast. Sagittal and coronal reformations through the cervical spine were then performed. Auto Exposure Controls were utilized during the CT exam to meet ALARA standards for radiation dose reduction. INDICATION: Fall, head and neck injury, on Coumadin COMPARISON: 02/04/2022 FINDINGS: CT HEAD: Ventricles and cortical sulci are prominent consistent with generalized parenchymal volume loss. There is no midline shift or mass effect. No acute intracranial hemorrhage is seen. There is no CT evidence of acute territorial ischemia. The calvarium appears intact. Paranasal sinuses are clear. There is a small right frontal scalp hematoma which appears stable. CERVICAL SPINE: There is mild reversal of the cervical lordosis centered at C3. There are severe degenerative changes at C3-C4, C4-C5, C5-C6 and C6-C7. There is motion artifact throughout the exam. No acute fracture is seen. No bony fragments or hyperdense fluid collections are seen in the spinal canal. There is multilevel spinal canal and foraminal stenosis which is degenerative. Soft tissues about the cervical spine demonstrate no acute abnormality. IMPRESSION: 1. No acute intracranial hemorrhage or calvarium fracture. Stable small right frontal scalp hematoma. 2. Advanced degenerative change in the cervical spine with no acute fracture seen. Dictated by: Dictated on workstation # [id number]
[2022-02-05 21:54] VITALS: BP 117/81
== END 2022-02-05 21:54 | disposition home or self-care (01) ==
LOC: ER 20:57 → EDUNIT# 20:57 → ER 21:54
DX: F03.90 Unspecified dementia, unspecified severity, without behavioral disturbance, psychotic disturbance, mood disturbance, and anxiety (principal); Z79.01 Long term (current) use of anticoagulants
CPT/HCPCS: 70450; 72125

== ENCOUNTER 2022-03-15 14:42 | Emergency (ER) | payer MEDICARE, MEDICAID ==
[~2022-03-15] VITALS: Ht 182.8 cm; Wt 104.3 kg
[2022-03-15 14:50] VITALS: BP 106/80
--- NOTE | 2022-03-15 15:03 | ED Fall/Injury ---
General Chief Complaint: Trauma-Non Activation Stated Complaint: FALL Nursing Triage Note: pt brought to ER by [facility] from [facility]. ems reports pt has bruising to right side after a fall 3 days ago. ems reports pt also fell today, causing laceration to left elbow and right side of head. ems states pt was ambulatory on scene and that pt is at baseline mentation. pt is pleasantly confused on arrival Source: patient Exam Limitations: no limitations History of Present Illness Date Seen by Provider: March 15, 2022 Time Seen by Provider: 15:01 Initial Comments Patient is a 76-year-old male who presents ED by EMS from [facility] for a fall. Patient supposedly fell a few days ago as well as today. Patient with a history of Alzheimer's, dementia, Parkinson's and currently on warfarin who presents ED with an unwitnessed fall. Has a laceration to the right head and bruising to the right leg. Also abrasion to left elbow from the fall two days ago from a fall 2 days ago. Area was Steri-Stripped. Patient is up-to-date on his tetanus. These were not a witness fall. patient fell today resulted a small laceration to the right scalp. He did fall landing on the right side but did have some bruising on the right side leg. According to staff at [facility] states he does fall quite frequently and has fallen multiple times over the past month and believes the bruising is old to the right leg.. History of falls with multiple bruising throughout the but these are old falls that have been evaluated according to staff. Patient has been able to ambulate after each fall. Patient has no current complaints. He is taking warfarin. Allergies and Home Medications Allergies Coded Allergies: Penicillins (Unverified Allergy, Mild, 03/01/09) penicillin G (Verified Allergy, Unknown, 10/30/08) Patient Home Medication List Home Medication List Reviewed: Yes Acetaminophen (Acetaminophen) 325 Mg Tablet, 650 MG PO Q6H PRN for PAIN-MILD (1- 4)/TEMP Prescribed by: ROXIE KIM on 10/17/21 0853 Lorazepam (Ativan) 0.5 Mg Tablet, 0.5 MG PO TID PRN for ANXIETY Prescribed by: ROXIE KIM on 10/17/21 0855 Metoprolol Tartrate (Metoprolol Tartrate 50 Mg) 50 Mg Tablet, 100 MG PO HS, (Reported) Entered as Reported by: ROSANNA WILLSON on 07/31/13 1621 Senna (Senokot S) 1 Ea Tablet, 2 EA PO BID, (Reported) Entered as Reported by: TONE ESPINOZA on 08/02/13 1032 Warfarin Sodium (Jantoven) 5 Mg Tablet, 5 MG PO DAILY@1800 Prescribed by: ROXIE KIM on 10/17/21 0853 [Namenda Xr 21MG] , 28 MG PO HS, (Reported) Entered as Reported by: ROSANNA WILLSON on 07/31/13 1629 Review of Systems Review of Systems Constitutional: No chills, No diaphoresis, No malaise, No weakness Eyes: Denies Blurred Vision Ears, Nose, Mouth, Throat: denies ear pain, denies ear discharge Respiratory: No cough, No dyspnea on exertion Cardiovascular: No chest pain Gastrointestinal: No abdominal pain, No diarrhea, No jaundice, No nausea, No vomiting Genitourinary: No decreased output Musculoskeletal: No back pain; joint pain, joint swelling, muscle pain, muscle stiffness All Other Systems Reviewed Negative Unless Noted: Yes Past Dwvbfjo-Wsgkxo-Vkeboq Hx Immunizations Up To Date First/Initial COVID19 Vaccinat: june COVID19 Vaccination Cristóbal: july Past Medical History Surgery/Hospitalization HX: ARTIFICIAL AORTIC VALVE DEVICE PLACED Reproductive Disorders: No Physical Exam Vital Signs Vital Signs - First Documented 03/15/22 14:50 Temp 36.6 Pulse 102 Resp 20 B/P (MAP) 106/80 (89) Pulse Ox 96 Capillary Refill : Height, Weight, BMI Height: '" Weight: 228lbs. oz. 103.210021ov; 31.00 BMI Method: General Appearance: WD/WN, no apparent distress HEENT: PERRL/EOMI, normal ENT inspection, TMs normal Neck: non-tender, full range of motion, supple, normal inspection Cardiovascular: regular rate, rhythm, no edema, no gallop, no JVD Respiratory: chest non-tender, lungs clear, normal breath sounds, no respiratory distress, no accessory muscle use Gastrointestinal: normal bowel sounds, non tender, no organomegaly, no pulsatile mass, other (Mild bruising to the mid upper abdomen light with yellowing) Back: no CVA tenderness, no vertebral tenderness, other (Mild bruising to the back that is purplish with yellowing) Extremities: other (No hip tenderness, leg tenderness. Bruising noted bilateral legs with significant bruising to the right femur with yellowing of the skin.) Neurologic/Psychiatric: other (Disoriented x1) Skin: other (Bruising to the right leg, left leg.'s skin abrasion to the left elbow. Small 1 cm superficial lack right scalp.) Holly Coma Score Best Eye Response: (4) Open Spontaneously Best Verbal Response: (4) Confused Conversation Best Motor Response: (6) Obeys Commands [place] Total: 14 Progress/Results/Core Measures Results/Orders Lab Results Laboratory Tests Test 03/15/22 15:43 Range/Units White Blood Count 9.1 4.3-11.0 10^3/uL Red Blood Count 2.81 L 4.30-5.52 10^6/uL Hemoglobin 9.2 L 13.3-17.7 g/dL Hematocrit 28 L 40-54 % Mean Corpuscular Volume 99 80-99 fL Mean Corpuscular Hemoglobin 33 25-34 pg Mean Corpuscular Hemoglobin Concent 33 32-36 g/dL Red Cell Distribution Width 13.2 10.0-14.5 % Platelet Count 211 130-400 10^3/uL Mean Platelet Volume 9.7 9.0-12.2 fL Immature Granulocyte % (Auto) 0 % Neutrophils (%) (Auto) 78 H 42-75 % Lymphocytes (%) (Auto) 10 L 12-44 % Monocytes (%) (Auto) 11 0-12 % Eosinophils (%) (Auto) 0 0-10 % Basophils (%) (Auto) 0 0-10 % Neutrophils # (Auto) 7.1 1.8-7.8 10^3/uL Lymphocytes # (Auto) 0.9 L 1.0-4.0 10^3/uL Monocytes # (Auto) 1.0 0.0-1.0 10^3/uL Eosinophils # (Auto) 0.0 0.0-0.3 10^3/uL Basophils # (Auto) 0.0 0.0-0.1 10^3/uL Immature Granulocyte # (Auto) 0.0 0.0-0.1 10^3/uL Prothrombin Time 29.5 H 12.2-14.7 SEC INR Comment 2.7 H 0.8-1.4 Activated Partial Thromboplast Time 39 H 24-35 SEC Sodium Level 141 135-145 MMOL/L Potassium Level 4.4 3.6-5.0 MMOL/L Chloride Level 107 98-107 MMOL/L Carbon Dioxide Level 21 21-32 MMOL/L Anion Gap 13 5-14 MMOL/L Blood Urea Nitrogen 26 H 7-18 MG/DL Creatinine 0.92 0.60-1.30 MG/DL Estimat Glomerular Filtration Rate 87 BUN/Creatinine Ratio 28 Glucose Level 137 H 70-105 MG/DL Calcium Level 8.9 8.5-10.1 MG/DL Corrected Calcium 9.1 8.5-10.1 MG/DL Total Bilirubin 1.5 H 0.1-1.0 MG/DL Aspartate Amino Transf (AST/SGOT) 24 5-34 U/L Alanine Aminotransferase (ALT/SGPT) 16 0-55 U/L Alkaline Phosphatase 51 40-136 U/L Total Protein 6.2 L 6.4-8.2 GM/DL Albumin 3.7 3.2-4.5 GM/DL My Orders Orders - SUKHDEV BONNER Ct Head/Cervical Spine Wo (03/15/22 14:56) Ct Pelvis Wo (03/15/22 14:56) Elbow, Left, 3 Views (03/15/22 14:56) Femur, Right, 2 Views (03/15/22 14:56) Cbc With Automated Diff (03/15/22 15:00) Comprehensive Metabolic Panel (03/15/22 15:00) Partial Thromboplastin Time (03/15/22 15:00) Protime With Inr (03/15/22 15:00) Vital Signs/I&O 03/15/22 14:50 Temp 36.6 Pulse 102 Resp 20 B/P (MAP) 106/80 (89) Pulse Ox 96 Blood Pressure Mean: 89 Departure Communication (PCP) Patient is a 76-year-old male who presents ED for a fall. History of dementia, Parkinson's. Patient fell few days ago as well today. Has a very small superficial lack of the right scalp. Skin is approximated. No active bleeding. Allow healing by secondary intention. CT scan the head and cervical neck unremarkable. Does have significant bruising throughout. Contacted [facility] states most bruising is old. He did fall injuring his left elbow resulting in skin abrasion. Skin is approximated and Steri-Stripped. X-ray was negative for fracture. Significant bruising to the right leg with yellowing of the skin. No pain on palpation. This appears to be a old injury. He is on warfarin. CT scan of the pelvis negative for acute fracture. Degenerative changes noted. Hematoma noted. Recommend compression to help with the bruising and ice. Discussed this with staff at [facility]. Patient has been ambulating. Patient ambulated to the CT scan without any difficulty. He has no current complaints such as pain. INR 2.7. Lab work otherwise unremarkable. Patient will be discharged back to the facility. According to staff patient falls frequently. He has no chest pain Arthur pain short of breath. Stable vital signs. Impression Primary Impression: Head injury Additional Impressions: Skin abrasion Frequent falls Muscle contusion Disposition: 01 HOME, SELF-CARE Condition: Stable Departure-Patient Inst. Decision time for Depature: 16:06 Referrals: ROXIE KIM DO (PCP/Family) Primary Care Physician Patient Instructions: Abrasions ED, Contusion (DC) Add. Discharge Instructions: Recommend ice, compression to the bruising sites. Neosporin topically over the skin abrasion. If any change in symptoms return back to ED for further evaluation. Recommend continue wound care at the facility. If patient having difficulty ambulating or walking recommend further imaging of the hip such as MRI All discharge instructions reviewed with patient and/or family. Voiced understanding. SUKHDEV BONNER March 15, 2022 15:03
--- NOTE | 2022-03-15 15:33 | Diagnostic Imaging Report ---
PROCEDURE: CT head and CT cervical spine without contrast. TECHNIQUE: Multiple contiguous axial images were obtained through the brain and cervical spine without the use of intravenous contrast. Sagittal and coronal reformations through the cervical spine were then performed. Auto Exposure Controls were utilized during the CT exam to meet ALARA standards for radiation dose reduction. INDICATION: Fall, bruising, lacerations and pain. COMPARISON: 02/05/2022. FINDINGS: CT head: Chronic atrophy and white matter small vessel disease as well as vascular calcifications are all stable. There is no intracerebral hemorrhage and no calvarial fracture deformity. There was no mass or mass effect. There are no abnormal extra-axial fluid collections. There are vascular calcifications, chronic. There are no findings of an elevation of the intracerebral pressures. No air-fluid levels or hemo-sinus. No skull fracture. CT cervical spine: Degenerative changes to the discs, endplates and facets throughout the cervical spine as a stable chronic finding and believed to account for unchanged grade 1 retrolisthesis of C4 on C5. There is no cervical fracture. No facet joint dislocation. No paraspinal hemorrhage. No bony destructive process. No splaying of the posterior elements. No acute finding. Craniocervical relationship and the central skull base appear intact is vascular calcifications chronic. IMPRESSION: Stable chronic findings at CT head and cervical spine. No hemorrhage, fracture or acute appearing abnormality. Dictated by: Dictated on workstation # [id number]
--- NOTE | 2022-03-15 15:40 | Diagnostic Imaging Report ---
INDICATION: Bruising to the right side status post fall. Pain. Laceration. COMPARISON: None. FINDINGS: Multiple radiographic views of the right femur were obtained and show no fractures, dislocations, or other acute bony abnormalities. Joint spaces are well maintained throughout. The soft tissues appear unremarkable. No radiopaque foreign bodies are identified. IMPRESSION: Unremarkable radiographic exam of the right femur. Dictated by: Dictated on workstation # [id number]
--- NOTE | 2022-03-15 15:40 | Diagnostic Imaging Report ---
INDICATION: Bruising and pain status post fall. Laceration. COMPARISON: None. FINDINGS: Multiple radiographic views of the left elbow were obtained. Lateral view is suboptimally positioned, but images provided show no convincing evidence of acute fracture or dislocation of the left elbow. The visualized osseous structures are intact. Joint spaces otherwise appear appropriate. While joint effusion may be obscured. No unexpected radiopaque foreign bodies are seen. IMPRESSION: 1. No acute fracture or dislocation left elbow with limitations as above. Dictated by: Dictated on workstation # [id number]
--- NOTE | 2022-03-15 15:43 | Diagnostic Imaging Report ---
EXAMINATION: CT pelvis without contrast, 03/15/2022. TECHNIQUE: Multiple contiguous axial images were obtained through the pelvis without the use of intravenous contrast. Sagittal and coronal reformations were performed. Auto Exposure Controls were utilized during the CT exam to meet ALARA standards for radiation dose reduction. INDICATION: Status post fall with right hip pain. FINDINGS: There is marked heterogeneity and diffuse enlargement throughout the right gluteus musculature with areas of internal hyperdensity suggesting hemorrhage/hematoma. Overlying subcutaneous fat stranding is noted. Intrapelvic structures demonstrate changes of constipation with atherosclerotic disease also noted. There are degenerative findings in both hips. No dislocations. No acute fractures appreciated. There are degenerative findings within the visualized lumbar spine. IMPRESSION: 1. Diffuse marked enlargement of the right gluteal musculature which contains areas of hyperdensity suggesting hemorrhage/hematoma. Follow-up is recommended to assure complete resolution. 2. No fractures appreciated with degenerative findings as noted. If pain persists or patient can bear weight, MRI recommended to evaluate for edema along an occult underlying fracture. Dictated by: Dictated on workstation # [id number]
[2022-03-15 15:56] LABS: BASOPHILS % (AUTO) 0 % (0-10); EOSINOPHILS % (AUTO) 0 % (0-10); HEMATOCRIT 28 % (40-54); HEMOGLOBIN 9.2 g/dL (13.3-17.7); LYMPHOCYTES # (AUTO) 0.9 10^3/uL (1.0-4.0); LYMPHOCYTES % (AUTO) 10 % (12-44); MEAN CORPUSCULAR HEMOGLOBIN 33 pg (25-34); MEAN CORPUSCULAR HGB CONC 33 g/dL (32-36); MEAN CORPUSCULAR VOLUME 99 fL (80-99); MEAN PLATELET VOLUME 9.7 fL (9.0-12.2); MONOCYTES % (AUTO) 11 % (0-12); NEUTROPHILS # (AUTO) 7.1 10^3/uL (1.8-7.8); NEUTROPHILS % (AUTO) 78 % (42-75); PLATELET COUNT 211 10^3/uL (130-400); WHITE BLOOD COUNT 9.1 10^3/uL (4.3-11.0)
[2022-03-15 15:59] LABS: ALBUMIN 3.7 GM/DL (3.2-4.5); POTASSIUM 4.4 MMOL/L (3.6-5.0)
[2022-03-15 16:00] LABS: CALCIUM 8.9 MG/DL (8.5-10.1)
[2022-03-15 16:02] LABS: TOTAL PROTEIN 6.2 GM/DL (6.4-8.2)
[2022-03-15 16:03] LABS: BILIRUBIN,TOTAL 1.5 MG/DL (0.1-1.0); INR 2.7 (0.8-1.4); PROTHROMBIN TIME PATIENT 29.5 SEC (12.2-14.7)
[2022-03-15 16:05] LABS: CREATININE SERUM 0.92 MG/DL (0.60-1.30)
== END 2022-03-15 16:40 | disposition home or self-care (01) ==
LOC: EDUNIT# 14:42 → ER 14:43
DX: S80.11XA Contusion of right lower leg, initial encounter (principal); S30.1XXA Contusion of abdominal wall, initial encounter; S80.12XA Contusion of left lower leg, initial encounter; S30.0XXA Contusion of lower back and pelvis, initial encounter; S50.312A Abrasion of left elbow, initial encounter; S09.90XA Unspecified injury of head, initial encounter; S01.01XA Laceration without foreign body of scalp, initial encounter; Z28.311 Partially vaccinated for COVID-19; Z79.01 Long term (current) use of anticoagulants; W19.XXXA Unspecified fall, initial encounter
CPT/HCPCS: 36415; 70450; 72125; 72192; 73080; 73552; 80053; 85025; 85610; 85730

== ENCOUNTER 2022-03-16 16:39 | Emergency (ER) | payer MEDICARE, MEDICAID ==
[~2022-03-16] VITALS: Ht 182.8 cm; Wt 99.8 kg
[2022-03-16] MEDS ORDERED: NS IV 1000 ML 1,000 ML IV STA (16:46)
[2022-03-16 16:55] LABS: BASOPHILS % (AUTO) 0 % (0-10); EOSINOPHILS % (AUTO) 0 % (0-10); HEMATOCRIT 25 % (40-54); HEMOGLOBIN 8.2 g/dL (13.3-17.7); LYMPHOCYTES # (AUTO) 1.2 10^3/uL (1.0-4.0); LYMPHOCYTES % (AUTO) 16 % (12-44); MEAN CORPUSCULAR HEMOGLOBIN 33 pg (25-34); MEAN CORPUSCULAR HGB CONC 34 g/dL (32-36); MEAN CORPUSCULAR VOLUME 98 fL (80-99); MEAN PLATELET VOLUME 9.3 fL (9.0-12.2); MONOCYTES # (AUTO) 0.9 10^3/uL (0.0-1.0); MONOCYTES % (AUTO) 12 % (0-12); NEUTROPHILS # (AUTO) 5.4 10^3/uL (1.8-7.8); NEUTROPHILS % (AUTO) 71 % (42-75); PLATELET COUNT 217 10^3/uL (130-400); WHITE BLOOD COUNT 7.6 10^3/uL (4.3-11.0)
--- NOTE | 2022-03-16 17:00 | ED Fall/Injury ---
General Chief Complaint: Trauma-Non Activation Stated Complaint: FALL Source: EMS, EMS notes reviewed Exam Limitations: no limitations History of Present Illness Date Seen by Provider: March 16, 2022 Time Seen by Provider: 16:59 Initial Comments Patient is a 76-year-old male with a history of dementia who presents ED with head injury secondary to fall. Patient was found on the ground unwitnessed this afternoon. Unclear length of time. He may have been sitting down. Patient with a history of falls. Was seen here yesterday secondary to a fall. Patient has had multiple falls over the past month. They were concerned for a blood pressure in the 90s systolic. Difficulty obtaining history from patient. History was provided by EMS and [facility] Patient is currently on warfarin. Does have several bruises to the chest, abdomen back lower extremities secondary to previous falls. No vomiting, change in mental status. Patient is eating and drinking at the facility. Allergies and Home Medications Allergies Coded Allergies: Penicillins (Unverified Allergy, Mild, 03/01/09) penicillin G (Verified Allergy, Unknown, 10/30/08) Patient Home Medication List Home Medication List Reviewed: Yes Acetaminophen (Acetaminophen) 325 Mg Tablet, 650 MG PO Q6H PRN for PAIN-MILD (1- 4)/TEMP Prescribed by: ROXIE KIM on 10/17/21 0853 Lorazepam (Ativan) 0.5 Mg Tablet, 0.5 MG PO TID PRN for ANXIETY Prescribed by: ROXIE KIM on 10/17/21 0855 Metoprolol Tartrate (Metoprolol Tartrate 50 Mg) 50 Mg Tablet, 100 MG PO HS, (Reported) Entered as Reported by: ROSANNA WILLSON on 07/31/13 1621 Senna (Senokot S) 1 Ea Tablet, 2 EA PO BID, (Reported) Entered as Reported by: TONE ESPINOZA on 08/02/13 1032 Warfarin Sodium (Jantoven) 5 Mg Tablet, 5 MG PO DAILY@1800 Prescribed by: ROXIE KIM on 10/17/21 0853 [Namenda Xr 21MG] , 28 MG PO HS, (Reported) Entered as Reported by: ROSANNA WILLSON on 07/31/13 1629 Review of Systems Review of Systems Constitutional: No chills, No diaphoresis Eyes: Denies Drainage, Denies Decreased Acuity, Denies Pain Ears, Nose, Mouth, Throat: denies see HPI, denies ear discharge Respiratory: No cough Cardiovascular: No chest pain Gastrointestinal: No abdominal pain, No diarrhea, No nausea, No vomiting Genitourinary: No decreased output, No discharge Musculoskeletal: No back pain, No joint pain Skin: other (Bruising) Psychiatric/Neurological: Headache Past Nlpmone-Jabpfn-Nesefd Hx Immunizations Up To Date First/Initial COVID19 Vaccinat: june Second COVID19 Vaccination Cristóbal: july Past Medical History Surgery/Hospitalization HX: ARTIFICIAL AORTIC VALVE DEVICE PLACED Reproductive Disorders: No Physical Exam Vital Signs Vital Signs - First Documented 03/16/22 16:41 Temp 36.2 Pulse 66 Resp 14 B/P (MAP) 102/65 (77) Pulse Ox 98 Capillary Refill : Height, Weight, BMI Height: '" Weight: 228lbs. oz. 103.081637zp; 31.00 BMI Method: General Appearance: WD/WN, no apparent distress HEENT: PERRL/EOMI, normal ENT inspection, TMs normal, pharynx normal Neck: non-tender, supple Cardiovascular: regular rate, rhythm, no edema, no gallop Respiratory: chest non-tender, lungs clear, normal breath sounds, no respiratory distress Gastrointestinal: normal bowel sounds, soft, no organomegaly, other (Very small bruising to the mid abdomen that is purpleish with yellowish skin.) Back: other (Old bruising noted to the back throughout.) Extremities: normal range of motion, non-tender, no calf tenderness, other (Old bruising noted the right leg without any tenderness.) Neurologic/Psychiatric: other (Disoriented) Skin: other (Diffuse bruising that appears old throughout the upper and lower extremity and back and abdomen. No tenderness) Progress/Results/Core Measures Results/Orders Lab Results Laboratory Tests Test 03/16/22 16:45 Range/Units White Blood Count 7.6 4.3-11.0 10^3/uL Red Blood Count 2.50 L 4.30-5.52 10^6/uL Hemoglobin 8.2 L 13.3-17.7 g/dL Hematocrit 25 L 40-54 % Mean Corpuscular Volume 98 80-99 fL Mean Corpuscular Hemoglobin 33 25-34 pg Mean Corpuscular Hemoglobin Concent 34 32-36 g/dL Red Cell Distribution Width 13.2 10.0-14.5 % Platelet Count 217 130-400 10^3/uL Mean Platelet Volume 9.3 9.0-12.2 fL Immature Granulocyte % (Auto) 1 % Neutrophils (%) (Auto) 71 42-75 % Lymphocytes (%) (Auto) 16 12-44 % Monocytes (%) (Auto) 12 0-12 % Eosinophils (%) (Auto) 0 0-10 % Basophils (%) (Auto) 0 0-10 % Neutrophils # (Auto) 5.4 1.8-7.8 10^3/uL Lymphocytes # (Auto) 1.2 1.0-4.0 10^3/uL Monocytes # (Auto) 0.9 0.0-1.0 10^3/uL Eosinophils # (Auto) 0.0 0.0-0.3 10^3/uL Basophils # (Auto) 0.0 0.0-0.1 10^3/uL Immature Granulocyte # (Auto) 0.1 0.0-0.1 10^3/uL Prothrombin Time 35.4 H 12.2-14.7 SEC INR Comment 3.5 H 0.8-1.4 Activated Partial Thromboplast Time 58 H 24-35 SEC Sodium Level 137 135-145 MMOL/L Potassium Level 3.8 3.6-5.0 MMOL/L Chloride Level 103 98-107 MMOL/L Carbon Dioxide Level 26 21-32 MMOL/L Anion Gap 8 5-14 MMOL/L Blood Urea Nitrogen 26 H 7-18 MG/DL Creatinine 0.85 0.60-1.30 MG/DL Estimat Glomerular Filtration Rate 91 BUN/Creatinine Ratio 31 Glucose Level 115 H 70-105 MG/DL Calcium Level 8.6 8.5-10.1 MG/DL Corrected Calcium 9.1 8.5-10.1 MG/DL Total Bilirubin 1.5 H 0.1-1.0 MG/DL Aspartate Amino Transf (AST/SGOT) 26 5-34 U/L Alanine Aminotransferase (ALT/SGPT) 17 0-55 U/L Alkaline Phosphatase 50 40-136 U/L Total Protein 5.6 L 6.4-8.2 GM/DL Albumin 3.4 3.2-4.5 GM/DL My Orders Orders - SUKHDEV BONNER Cbc With Automated Diff (03/16/22 16:46) Comprehensive Metabolic Panel (03/16/22 16:46) Partial Thromboplastin Time (03/16/22 16:46) Protime With Inr (03/16/22 16:46) Ns Iv 1000 Ml (Sodium Chloride 0.9%) (03/16/22 16:46) Orthostatic Vital Signs (Adult (03/16/22 16:46) Ct Head/Cervical Spine Wo (03/16/22 16:56) Vital Signs/I&O 03/16/22 16:41 Temp 36.2 Pulse 66 Resp 14 B/P (MAP) 102/65 (77) Pulse Ox 98 Departure Communication (PCP) Patient with a history of frequent falls presents ED for a another fall today. [place] was found on his left side. No obvious acute trauma. CT scan head and neck negative. Patient is on warfarin secondary to leaky valve. INR 3.5. Discussed with staff at [facility] to not take his next dose of warfarin. Lab work was otherwise unremarkable. He is afebrile. Blood pressure initially was 102/65. Patient received 300 ml of IV fluid before he pulled it out and had a blood pressure of 117/62. Patient is ambulating well walking around department without any difficulty. Afebrile with normal white blood count. Lung sounds clear bilateral. Old bruising noted throughout. Patient will be discharged back to the facility. This was discussed with the facility. Impression Primary Impression: Fall Disposition: HOME, SELF-CARE Condition: Stable Departure-Patient Inst. Decision time for Depature: 18:06 Referrals: ROXIE KIM DO (PCP/Family) Primary Care Physician Patient Instructions: Minor Head Injury (DC) Add. Discharge Instructions: Continue monitoring blood pressure. Recommend oral hydration. INR 3.5. Recommend not taking the next dose of warfarin. All discharge instructions reviewed with patient and/or family. Voiced understanding. SUKHDEV BONNER March 16, 2022 17:00
[2022-03-16 17:12] LABS: ALBUMIN 3.4 GM/DL (3.2-4.5); POTASSIUM 3.8 MMOL/L (3.6-5.0)
[2022-03-16 17:13] LABS: CALCIUM 8.6 MG/DL (8.5-10.1); INR 3.5 (0.8-1.4); PROTHROMBIN TIME PATIENT 35.4 SEC (12.2-14.7)
[2022-03-16 17:14] LABS: TOTAL PROTEIN 5.6 GM/DL (6.4-8.2)
[2022-03-16 17:16] LABS: BILIRUBIN,TOTAL 1.5 MG/DL (0.1-1.0)
[2022-03-16 17:18] LABS: CREATININE SERUM 0.85 MG/DL (0.60-1.30)
--- NOTE | 2022-03-16 17:43 | Diagnostic Imaging Report ---
PROCEDURE: CT head and CT cervical spine without contrast. TECHNIQUE: Multiple contiguous axial images were obtained through the brain and cervical spine without the use of intravenous contrast. Sagittal and coronal reformations through the cervical spine were then performed. Auto Exposure Controls were utilized during the CT exam to meet ALARA standards for radiation dose reduction. INDICATION: Fall. Head and neck pain. COMPARISON: 03/15/2022. FINDINGS: CT head: No large acute territorial ischemia, mass, or hemorrhage. No midline shift or mass effect. Decreased attenuation is seen in the periventricular and subcortical white matter. The ventricles and cortical sulci are prominent. The basilar cisterns are patent and unremarkable. The calvarium is intact. The visualized paranasal sinuses are clear. CT cervical spine: No acute fracture or dislocation is seen in the cervical spine. No focal osseous lesions. There is reversal of the normal lordotic curvature of the cervical spine centered at the C3 level. Vertebral body heights are well-maintained. The craniocervical junction is well-maintained. Moderate degenerative changes are seen in the cervical spine with disc osteophyte complexes and uncovertebral arthropathy. Soft tissues of the neck are unremarkable. IMPRESSION: 1. No hemorrhage or focal intra-axial mass. No CT evidence of large acute territorial ischemia. 2. No acute fracture or dislocation in the cervical spine. Dictated by: Dictated on workstation # [id number]
[2022-03-16 18:40] VITALS: BP 117/62
== END 2022-03-16 18:43 | disposition home or self-care (01) ==
LOC: EDUNIT# 16:39 → ER 16:41
DX: S30.1XXA Contusion of abdominal wall, initial encounter (principal); S80.11XA Contusion of right lower leg, initial encounter; S40.021A Contusion of right upper arm, initial encounter; S30.0XXA Contusion of lower back and pelvis, initial encounter; R29.6 Repeated falls; R03.0 Elevated blood-pressure reading, without diagnosis of hypertension; F03.90 Unspecified dementia, unspecified severity, without behavioral disturbance, psychotic disturbance, mood disturbance, and anxiety; Z79.01 Long term (current) use of anticoagulants; Z95.2 Presence of prosthetic heart valve; W19.XXXA Unspecified fall, initial encounter
CPT/HCPCS: 36415; 70450; 72125; 80053; 85025; 85610; 85730

== ENCOUNTER 2022-03-30 21:50 | Emergency (ER) | payer MEDICARE, MEDICAID ==
[~2022-03-30] VITALS: Ht 182.9 cm; Wt 99.8 kg
--- NOTE | 2022-03-30 22:07 | ED Fall/Injury ---
General Stated Complaint: FALL/R HIP PAIN Source: EMS, old records Exam Limitations: other (PT WITH DEMENTIA AND UNABLE TO ANSWER QUESTIONS. NO ALF PAPER WORK SENT WITH PT, AND NO REPORT FROM ALF.) History of Present Illness Date Seen by Provider: March 30, 2022 Time Seen by Provider: 21:53 Initial Comments PT ARRIVES VIA EMS FROM [facility] PER EMS, PT HAD A WITNESSED FALL--PT HAS ON REGULAR SOCKS, WAS GETTING OUT OF A CHAIR AND HIS FEET SLIPPED AND HE FELL EMS STATE THAT HE HAD COMPLAINED OF HIP PAIN, BUT PT HAS DENIED PAIN ANYWHERE TO THEM. REPORTEDLY HE DID NOT HIT HIS HEAD OR HAVE ANY LOSS OF CONSCIOUSNESS. NO OTHER INFORMATION IS AVAILABLE AT THIS TIME ON REVIEW OF OLD CHARTS, PT IS ON COUMADIN FOR MECHANICAL HEART VALVE THIS IS PT'S 6TH VISIT SINCE 01/28/22 FOR FALLS. LAST 2 VISITS WERE 03/15 AND 03/16 FOR FALLS. HAS HIT HIS HEAD MULTIPLE TIMES WITH THESE PREVIOUS FALLS. PT HAD COVID-19 IN OCTOBER 2021, WITH HOSPITALIZATION, AND THEN WAS PLACED IN ALF AFTER HE WAS DISMISSED FROM THE HOSPITAL. PCP: DR. KIM Allergies and Home Medications Allergies Coded Allergies: Penicillins (Unverified Allergy, Mild, 03/01/09) penicillin G (Verified Allergy, Unknown, 10/30/08) Patient Home Medication List Home Medication List Reviewed: Yes Acetaminophen (Acetaminophen) 325 Mg Tablet, 650 MG PO Q6H PRN for PAIN-MILD (1- 4)/TEMP Prescribed by: ROXIE KIM on 10/17/21 0853 Lorazepam (Ativan) 0.5 Mg Tablet, 0.5 MG PO TID PRN for ANXIETY Prescribed by: ROXIE KIM on 10/17/21 0855 Metoprolol Tartrate (Metoprolol Tartrate 50 Mg) 50 Mg Tablet, 100 MG PO HS, (Reported) Entered as Reported by: ROSANNA WILLSON on 07/31/13 1621 Senna (Senokot S) 1 Ea Tablet, 2 EA PO BID, (Reported) Entered as Reported by: TONE ESPINOZA on 08/02/13 1032 Warfarin Sodium (Jantoven) 5 Mg Tablet, 5 MG PO DAILY@1800 Prescribed by: ROXIE KIM on 10/17/21 0853 [Namenda Xr 21MG] , 28 MG PO HS, (Reported) Entered as Reported by: ROSANNA WILLSON on 07/31/13 5948 Review of Systems Review of Systems Constitutional: other (UNABLE TO OBTAIN FROM PT) Past Bavntvj-Atefda-Jkobks Hx Patient Social History Tobacco Use?: Yes Tobacco type used: Cigarettes Smoking Status: Former Smoker Substance use?: No Alcohol Use?: No Immunizations Up To Date First/Initial COVID19 Vaccinat: june COVID19 Vaccination Cristóbal: july Past Medical History Surgery/Hospitalization HX: ARTIFICIAL AORTIC VALVE DEVICE PLACED Surgeries: Yes Cardiac, Testicular, Valve Replacement Respiratory: No Cardiac: Yes (MECHANICAL AORTIC VALVE) Atrial Fibrillation, Chronic Edema/Swelling, High Cholesterol, Hypertension, Valvular Heart Disease Neurological: Yes Dementia, Parkinson's Disease Reproductive Disorders: No Genitourinary: Yes (BENIGN RIGHT TESTICULAR MASS/S-P ORCHIECTOMY) Benign Prostatic Hyperpl, Prostate Problems HEENT: No Cancer: No Psychosocial: Yes (DEMENTIA) Anxiety, Depression Integumentary: No Blood Disorders: No Family Medical History 10/2021--HOSPITALIZED FOR COVID-19 PNEUMONIA/RESPIRATORY FAILURE. WAS PLACED IN ALF AFTER HE WAS DISMISSED FROM THE HOSPITAL. PAST SURGICAL HISTORY: -AORTIC VALVE REPLACEMENT WITH MECHANICAL VALVE-CHRONIC COUMADIN USE -RIGHT ORCHIECTOMY 07/[address] NICHOLS. Physical Exam Vital Signs Vital Signs - First Documented 03/30/22 21:52 Temp 35.3 Pulse 62 Resp 16 B/P (MAP) 135/78 (97) Pulse Ox 97 O2 Delivery Room Air Capillary Refill : Height, Weight, BMI Height: '" Weight: 228lbs. oz. 103.905194rq; 29.00 BMI Method: General Appearance: WD/WN, no apparent distress HEENT: PERRL/EOMI, other (OLDER APPEARING BRUISES OF VARIOUS AGES TO FOREHEAD) Neck: non-tender Cardiovascular: regular rate, rhythm, no murmur Respiratory: chest non-tender, normal breath sounds, no respiratory distress, no accessory muscle use Gastrointestinal: non tender, soft Back: no CVA tenderness, no vertebral tenderness Extremities: no calf tenderness, normal capillary refill, pedal edema (1+ BILATERALLY), other (NO SHORTENING, DEFORMITY OR ROTATION. UNABLE TO ELICIT ANY TENDERNESS ANYWHERE. ) Neurologic/Psychiatric: no motor/sensory deficits (GROSSLY INTACT, PT ABLE TO FOLLOW A FEW VERY SIMPLE COMMANDS. SPEECH IS MOSTLY MUMBLING AND NON-SENSICAL, BUT DOES ANSWER A FEW YES/NO QUESTIONS. ) Skin: warm/dry, ecchymosis (PT WITH EXTENSIVE BRUISING OVER ENTIRE BODY OF VARIOUS AGES--ARMS, THIGHS, KNEES, LOWER LEGS, ABDOMEN, BACK, FOREHEAD. ) [place] Coma Score Best Eye Response: (4) Open Spontaneously Best Verbal Response: (4) Confused Conversation Best Motor Response: (6) Obeys Commands Holly Total: 14 Progress/Results/Core Measures Results/Orders Lab Results Laboratory Tests Test 03/30/22 22:18 Range/Units White Blood Count 4.6 4.3-11.0 10^3/uL Red Blood Count 2.72 L 4.30-5.52 10^6/uL Hemoglobin 8.9 L 13.3-17.7 g/dL Hematocrit 28 L 40-54 % Mean Corpuscular Volume 102 H 80-99 fL Mean Corpuscular Hemoglobin 33 25-34 pg Mean Corpuscular Hemoglobin Concent 32 32-36 g/dL Red Cell Distribution Width 15.2 H 10.0-14.5 % Platelet Count 191 130-400 10^3/uL Mean Platelet Volume 9.2 9.0-12.2 fL Immature Granulocyte % (Auto) 0 % Neutrophils (%) (Auto) 61 42-75 % Lymphocytes (%) (Auto) 25 12-44 % Monocytes (%) (Auto) 13 H 0-12 % Eosinophils (%) (Auto) 1 0-10 % Basophils (%) (Auto) 0 0-10 % Neutrophils # (Auto) 2.8 1.8-7.8 10^3/uL Lymphocytes # (Auto) 1.1 1.0-4.0 10^3/uL Monocytes # (Auto) 0.6 0.0-1.0 10^3/uL Eosinophils # (Auto) 0.1 0.0-0.3 10^3/uL Basophils # (Auto) 0.0 0.0-0.1 10^3/uL Immature Granulocyte # (Auto) 0.0 0.0-0.1 10^3/uL Prothrombin Time 40.2 H 12.2-14.7 SEC INR Comment 4.1 H 0.8-1.4 Activated Partial Thromboplast Time 58 H 24-35 SEC Sodium Level 140 135-145 MMOL/L Potassium Level 3.4 L 3.6-5.0 MMOL/L Chloride Level 106 98-107 MMOL/L Carbon Dioxide Level 23 21-32 MMOL/L Anion Gap 11 5-14 MMOL/L Blood Urea Nitrogen 15 7-18 MG/DL Creatinine 0.64 0.60-1.30 MG/DL Estimat Glomerular Filtration Rate 99 BUN/Creatinine Ratio 23 Glucose Level 95 70-105 MG/DL Calcium Level 8.4 L 8.5-10.1 MG/DL My Orders Orders - DESTINY GIVENS DO Ed Iv/Invasive Line Start (03/30/22 21:55) Monitor-Rhythm Ecg Trace Only (03/30/22 21:55) Ct Head Wo (03/30/22 21:55) Chest 1 View, Ap/Pa Only (03/30/22 21:55) Pelvis/Solo Hips 5> Views (03/30/22 21:55) Basic Metabolic Panel (03/30/22 21:55) Cbc With Automated Diff (03/30/22 21:55) Protime With Inr (03/30/22 21:55) Partial Thromboplastin Time (03/30/22 21:55) Femur, Left, 2 Views (03/30/22 22:21) Femur, Right, 2 Views (03/30/22 22:21) Vital Signs/I&O 03/30/22 03/31/22 21:52 01:58 Temp 35.3 Pulse 62 63 Resp 16 13 B/P (MAP) 135/78 (97) 132/70 Pulse Ox 97 99 O2 Delivery Room Air Room Air Progress Progress Note : Progress Note PT DID NOT COMPLAIN OF PAIN OR EXHIBIT PAIN DURING ANY TIME DURING ER STAY Diagnostic Imaging Comments CXR--NO ACUTE PROCESS, PENDING RADIOLOGIST REVIEW CT HEAD--NO ACUTE FINDINGS, CHRONIC SENESCENT CHANGES--PER [facility] VIA FAX AT 0034 XRAYS OF BILATERAL FEMURS--NO ACUTE FINDINGS PER [facility] VIA FAX AT 0147 XRAYS OF PELVIS AND BILATERAL HIPS--DEGENERATIVE CHANGES OF BOTH HIPS AND PELVIS, NO ACUTE FINDINGS PER [facility] VIA FAX AT 0151 Reviewed: Reviewed by Me Departure Impression Primary Impression: WITNESSED FALL AT ALF Additional Impressions: Fall on same level from slipping as cause of accidental injury Chronic anticoagulation Severe dementia Mechanical heart valve present Chronic atrial fibrillation Disposition: 03 XFER SNF Condition: Stable Departure-Patient Inst. Decision time for Depature: 01:47 Referrals: ROXIE KIM DO (PCP/Family) Primary Care Physician Patient Instructions: Preventing Falls ED Add. Discharge Instructions: CONTINUE ALL REGULAR MEDICATIONS PRESCRIBED FOLLOW UP WITH DR. KIM FOR FURTHER CARE DESTINY GIVENS DO March 30, 2022 22:07
[2022-03-30 22:23] LABS: BASOPHILS % (AUTO) 0 % (0-10); EOSINOPHILS # (AUTO) 0.1 10^3/uL (0.0-0.3); EOSINOPHILS % (AUTO) 1 % (0-10); HEMATOCRIT 28 % (40-54); HEMOGLOBIN 8.9 g/dL (13.3-17.7); LYMPHOCYTES # (AUTO) 1.1 10^3/uL (1.0-4.0); LYMPHOCYTES % (AUTO) 25 % (12-44); MEAN CORPUSCULAR HEMOGLOBIN 33 pg (25-34); MEAN CORPUSCULAR HGB CONC 32 g/dL (32-36); MEAN CORPUSCULAR VOLUME 102 fL (80-99); MEAN PLATELET VOLUME 9.2 fL (9.0-12.2); MONOCYTES # (AUTO) 0.6 10^3/uL (0.0-1.0); MONOCYTES % (AUTO) 13 % (0-12); NEUTROPHILS # (AUTO) 2.8 10^3/uL (1.8-7.8); NEUTROPHILS % (AUTO) 61 % (42-75); PLATELET COUNT 191 10^3/uL (130-400); WHITE BLOOD COUNT 4.6 10^3/uL (4.3-11.0)
[2022-03-30 22:32] LABS: POTASSIUM 3.4 MMOL/L (3.6-5.0)
[2022-03-30 22:34] LABS: CALCIUM 8.4 MG/DL (8.5-10.1); INR 4.1 (0.8-1.4); PROTHROMBIN TIME PATIENT 40.2 SEC (12.2-14.7)
[2022-03-30 22:38] LABS: CREATININE SERUM 0.64 MG/DL (0.60-1.30)
[2022-03-31 01:58] VITALS: BP 132/70
--- NOTE | 2022-03-31 05:53 | Diagnostic Imaging Report ---
Clinical indication: Patient status post fall. EXAM: Portable chest x-ray upright view. COMPARISON: Chest x-ray dated 10/13/2021. FINDINGS: Lungs/pleura: There is interval improved aeration of both lungs compared to prior study. Lungs are now clear. There is no pneumothorax. There is no pleural effusion. Mediastinum: Unremarkable. Pulmonary vasculature: Unremarkable. Heart: There is mild cardiomegaly. Again seen postoperative changes of the chest consistent with CABG and valvuloplasty. Bones/extrathoracic soft tissue: There are degenerative spurs involving the thoracic spine. IMPRESSION: 1: There is no radiographic evidence of acute cardiopulmonary process or traumatic finding. 2: There is cardiomegaly and no significant pulmonary vascular congestion. Dictated by: Dictated on workstation # [id number]
--- NOTE | 2022-03-31 05:56 | Diagnostic Imaging Report ---
CLINICAL INDICATION: Patient status post fall. EXAM: Axial CT scan of the brain performed without IV contrast with sagittal and coronal reformatted images. Auto Exposure Controls were utilized during the CT exam to meet ALARA standards for radiation dose reduction. COMPARISON: CT scan of the head and cervical spine without contrast dated 03/16/2022. FINDINGS: There is no evidence of acute cerebral infarct, intracranial hemorrhage, or gross mass effect. There is brain parenchymal volume loss and chronic small vessel ischemic disease. There is normal lyles-white matter distinction. There is no significant midline shift or herniation. There is no evidence of hydrocephalus. The basal cisterns are unremarkable. The skull, extracranial soft tissue, and orbits are unremarkable. There is mild mucosal thickening involving left maxillary sinus and sphenoid sinus. Temporal bones show no significant abnormality. IMPRESSION: There is no evidence of acute intracranial process. I agree with [facility] report. Dictated by: Dictated on workstation # [id number]
--- NOTE | 2022-03-31 06:42 | Diagnostic Imaging Report ---
CLINICAL INDICATION: Patient with pelvic pain status post fall. EXAMS: 1: X-ray of both hips and pelvis with AP and frog-leg views of both hips. 2: X-ray of the right femur, 4 views. 3: X-ray of the left femur, 4 views. COMPARISON: CT scan of the pelvis without contrast dated 03/15/2022. FINDINGS: X-rays of the pelvis, both hips, both femurs show no acute fracture or dislocation. There are mildly hypertrophic spurs involving the bilateral proximal femoral head/neck junction regions and mild spurring of the bilateral acetabular regions. There is mild enthesopathy involving the ischium and greater trochanter. There is mild spurring of the sacroiliac joints. There are hypertrophic spurs involving the visualized lower thoracic spine. Right knee shows small degenerative spurs in the patellofemoral compartment and medially. There is baceoejl-ks-siqhum medial compartment narrowing involving the right knee. Left knee shows muuixbne-hd-yxjeyn medial compartment narrowing and mild to moderately hypertrophic spurs in the patellofemoral compartment. There are surgical clips along the left thigh region. IMPRESSION: 1: X-rays of the pelvis, both hips, and both femurs show no acute fracture or dislocation. 2: There are degenerative changes of the hips, pelvis, and both knees. I agree with [facility] report. Dictated by: Dictated on workstation # [id number]
--- NOTE | 2022-03-31 07:21 | Diagnostic Imaging Report ---
CLINICAL INDICATION: Patient with pelvic pain status post fall. EXAMS: 1: X-ray of both hips and pelvis with AP and frog-leg views of both hips. 2: X-ray of the right femur, 4 views. 3: X-ray of the left femur, 4 views. COMPARISON: CT scan of the pelvis without contrast dated 03/15/2022. FINDINGS: X-rays of the pelvis, both hips, both femurs show no acute fracture or dislocation. There are mildly hypertrophic spurs involving the bilateral proximal femoral head/neck junction regions and mild spurring of the bilateral acetabular regions. There is mild enthesopathy involving the ischium and greater trochanter. There is mild spurring of the sacroiliac joints. There are hypertrophic spurs involving the visualized lower thoracic spine. Right knee shows small degenerative spurs in the patellofemoral compartment and medially. There is cxiojuwh-li-rlhsmi medial compartment narrowing involving the right knee. Left knee shows tczietpt-gf-tzibck medial compartment narrowing and mild to moderately hypertrophic spurs in the patellofemoral compartment. There are surgical clips along the left thigh region. IMPRESSION: 1: X-rays of the pelvis, both hips, and both femurs show no acute fracture or dislocation. 2: There are degenerative changes of the hips, pelvis, and both knees. I agree with [facility] report. Dictated by: Dictated on workstation # [id number]
--- NOTE | 2022-03-31 07:21 | Diagnostic Imaging Report ---
CLINICAL INDICATION: Patient with pelvic pain status post fall. EXAMS: 1: X-ray of both hips and pelvis with AP and frog-leg views of both hips. 2: X-ray of the right femur, 4 views. 3: X-ray of the left femur, 4 views. COMPARISON: CT scan of the pelvis without contrast dated 03/15/2022. FINDINGS: X-rays of the pelvis, both hips, both femurs show no acute fracture or dislocation. There are mildly hypertrophic spurs involving the bilateral proximal femoral head/neck junction regions and mild spurring of the bilateral acetabular regions. There is mild enthesopathy involving the ischium and greater trochanter. There is mild spurring of the sacroiliac joints. There are hypertrophic spurs involving the visualized lower thoracic spine. Right knee shows small degenerative spurs in the patellofemoral compartment and medially. There is [id number]-[id number] medial compartment narrowing involving the right knee. Left knee shows [id number] medial compartment narrowing and mild to moderately hypertrophic spurs in the patellofemoral compartment. There are surgical clips along the left thigh region. IMPRESSION: 1: X-rays of the pelvis, both hips, and both femurs show no acute fracture or dislocation. 2: There are degenerative changes of the hips, pelvis, and both knees. I agree with [facility] report. Dictated by: Dictated on workstation # [id number]
== END 2022-03-31 02:19 ==
LOC: EDUNIT# 21:50 → ER 21:51
DX: M25.551 Pain in right hip (principal); I48.20 Chronic atrial fibrillation, unspecified; F03.90 Unspecified dementia, unspecified severity, without behavioral disturbance, psychotic disturbance, mood disturbance, and anxiety; R29.6 Repeated falls; Z79.01 Long term (current) use of anticoagulants; Z95.2 Presence of prosthetic heart valve; Z95.4 Presence of other heart-valve replacement; Z87.891 Personal history of nicotine dependence; Z86.16 Personal history of COVID-19; W01.0XXA Fall on same level from slipping, tripping and stumbling without subsequent striking against object, initial encounter; Y92.129 Unspecified place in nursing home as the place of occurrence of the external cause
CPT/HCPCS: 36415; 70450; 71045; 73523; 73552; 80048; 85025; 85610; 85730; 93041

== ENCOUNTER 2022-04-06 14:10 | Inpatient (IN) | payer MEDICARE, MEDICAID ==
[~2022-04-06] VITALS: Ht 177.8 cm; Wt 89.2 kg
--- NOTE | 2022-04-06 14:40 | ED General ---
General Chief Complaint: General Problems/Pain Stated Complaint: BRUISING TO R LEG Source of Information: Patient, Caregiver Exam Limitations: Other (dementia) History of Present Illness Date Seen by Provider: Apr 06, 2022 Time Seen by Provider: 14:16 Initial Comments 76-year-old male with advanced dementia, aortic valve replacement on warfarin coming in with his caregiver to be evaluated for the significant bruising on his left buttocks. He has fallen numerous times of the past couple of months. He has not had a significant fall for a couple weeks, for which she presented here at that time and had a negative CT head and x-rays. The caregiver that is currently with him has been with him for 2 weeks, and she is noticed the bruising to his left buttocks after that fall has continued to worsen since that time. He has not had any large falls since then. Continues to take his warfarin. Caregiver says he is at his baseline mentally. He has been continuing to walk without difficulty. She says the falls are often from tripping because he has difficulty seeing. Allergies and Home Medications Allergies Coded Allergies: Penicillins (Unverified Allergy, Mild, 04/06/22) penicillin G (Verified Allergy, Unknown, 04/06/22) Patient Home Medication List Home Medication List Reviewed: Yes Acetaminophen (Acetaminophen) 325 Mg Tablet, 650 MG PO Q6H PRN for PAIN-MILD (1- 4)/TEMP Prescribed by: ROXIE KIM on 10/17/21 0853 Lorazepam (Ativan) 0.5 Mg Tablet, 0.5 MG PO TID PRN for ANXIETY Prescribed by: ROXIE KIM on 10/17/21 0855 Metoprolol Tartrate (Metoprolol Tartrate 50 Mg) 50 Mg Tablet, 100 MG PO HS, (Reported) Entered as Reported by: ROSANNA WILLSON on 07/31/13 1621 Senna (Senokot S) 1 Ea Tablet, 2 EA PO BID, (Reported) Entered as Reported by: TONE ESPINOZA on 08/02/13 1032 Warfarin Sodium (Jantoven) 5 Mg Tablet, 5 MG PO DAILY@1800 Prescribed by: ROXIE KIM on 10/17/21 0853 [Namenda Xr 21MG] , 28 MG PO HS, (Reported) Entered as Reported by: ROSANNA WILLSON on 07/31/13 1629 Review of Systems Review of Systems Constitutional: No fever EENTM: No blurred vision Respiratory: no symptoms reported Cardiovascular: no symptoms reported Gastrointestinal: no symptoms reported Genitourinary: no symptoms reported Musculoskeletal: other (bruising to left leg) Skin: no symptoms reported Psychiatric/Neurological: No Symptoms Reported Hematologic/Lymphatic: Easy Bruising Immunological/Allergic: no symptoms reported All Other Systems Reviewed Negative Unless Noted: Yes Past Kduxwpl-Llkuya-Imdfic Hx Patient Social History Tobacco Use?: No Immunizations Up To Date First/Initial COVID19 Vaccinat: june COVID19 Vaccination Cristóbal: july COVID19 Vaccination Date: june Past Medical History Surgery/Hospitalization HX: ARTIFICIAL AORTIC VALVE DEVICE PLACED Surgeries: Yes Cardiac, Testicular, Valve Replacement Respiratory: No Cardiac: Yes (MECHANICAL AORTIC VALVE) Atrial Fibrillation, Chronic Edema/Swelling, High Cholesterol, Hypertension, Valvular Heart Disease Neurological: Yes Dementia, Parkinson's Disease Reproductive Disorders: No Genitourinary: Yes (BENIGN RIGHT TESTICULAR MASS/S-P ORCHIECTOMY) Benign Prostatic Hyperpl, Prostate Problems HEENT: No Cancer: No Psychosocial: Yes (DEMENTIA) Anxiety, Depression Integumentary: No Blood Disorders: No Family Medical History 10/2021--HOSPITALIZED FOR COVID-19 PNEUMONIA/RESPIRATORY FAILURE. WAS PLACED IN [facility] AFTER HE WAS DISMISSED FROM THE HOSPITAL. PAST SURGICAL HISTORY: -AORTIC VALVE REPLACEMENT WITH MECHANICAL VALVE-CHRONIC COUMADIN USE -RIGHT ORCHIECTOMY 07/[address] NICHOLS. Physical Exam Vital Signs Vital Signs - First Documented 04/06/22 14:20 Temp 36.7 Pulse 69 Resp 16 B/P (MAP) 99/45 (63) Pulse Ox 100 Capillary Refill : Height, Weight, BMI Height: '" Weight: 228lbs. oz. 103.360368hy; 29.00 BMI Method: General Appearance: No Apparent Distress, WD/WN Eyes: Bilateral Eye Normal Inspection HEENT: PERRL/EOMI, Normal ENT Inspection, Pharynx Normal Neck: Full Range of Motion, Normal Inspection, Non Tender, Supple Respiratory: Chest Non Tender, Lungs Clear, Normal Breath Sounds, No Accessory Muscle Use, No Respiratory Distress Cardiovascular: Regular Rate, Rhythm, No Edema, Normal Peripheral Pulses Gastrointestinal: Normal Bowel Sounds, Non Tender, Soft; No Distended, No Guarding Back: Normal Inspection, No CVA Tenderness, No Vertebral Tenderness Extremity: Normal Capillary Refill, Normal Range of Motion, No Calf Tenderness, No Pedal Edema, Other (significant amount of bruising down the left buttocks and thigh with tenderness) Neurologic/Psychiatric: Alert, No Motor/Sensory Deficits, Disoriented Skin: Normal Color, Warm/Dry Lymphatic: No Adenopathy Progress/Results/Core Measures Suspected Sepsis SIRS Temperature: Pulse: Respiratory Rate: Laboratory Tests 04/06/22 14:45: White Blood Count 6.4 Blood Pressure / Mean: Laboratory Tests 04/06/22 14:45: Creatinine 0.80, INR Comment 6.6*H, Platelet Count 198, Total Bilirubin 2.3H Results/Orders Lab Results Laboratory Tests Test 04/06/22 14:45 Range/Units White Blood Count 6.4 4.3-11.0 10^3/uL Red Blood Count 1.75 L 4.30-5.52 10^6/uL Hemoglobin 5.8 #*L 13.3-17.7 g/dL Hematocrit 18 *L 40-54 % Mean Corpuscular Volume 103 H 80-99 fL Mean Corpuscular Hemoglobin 33 25-34 pg Mean Corpuscular Hemoglobin Concent 32 32-36 g/dL Red Cell Distribution Width 14.8 H 10.0-14.5 % Platelet Count 198 130-400 10^3/uL Mean Platelet Volume 9.6 9.0-12.2 fL Immature Granulocyte % (Auto) 0 % Neutrophils (%) (Auto) 75 42-75 % Lymphocytes (%) (Auto) 12 12-44 % Monocytes (%) (Auto) 13 H 0-12 % Eosinophils (%) (Auto) 0 0-10 % Basophils (%) (Auto) 0 0-10 % Neutrophils # (Auto) 4.8 1.8-7.8 10^3/uL Lymphocytes # (Auto) 0.8 L 1.0-4.0 10^3/uL Monocytes # (Auto) 0.8 0.0-1.0 10^3/uL Eosinophils # (Auto) 0.0 0.0-0.3 10^3/uL Basophils # (Auto) 0.0 0.0-0.1 10^3/uL Immature Granulocyte # (Auto) 0.0 0.0-0.1 10^3/uL Prothrombin Time 57.8 *H 12.2-14.7 SEC INR Comment 6.6 *H 0.8-1.4 Activated Partial Thromboplast Time 89 H 24-35 SEC Sodium Level 140 135-145 MMOL/L Potassium Level 3.7 3.6-5.0 MMOL/L Chloride Level 105 98-107 MMOL/L Carbon Dioxide Level 25 21-32 MMOL/L Anion Gap 10 5-14 MMOL/L Blood Urea Nitrogen 22 H 7-18 MG/DL Creatinine 0.80 0.60-1.30 MG/DL Estimat Glomerular Filtration Rate 92 BUN/Creatinine Ratio 28 Glucose Level 139 H 70-105 MG/DL Calcium Level 8.3 L 8.5-10.1 MG/DL Corrected Calcium 9.0 8.5-10.1 MG/DL Total Bilirubin 2.3 H 0.1-1.0 MG/DL Aspartate Amino Transf (AST/SGOT) 25 5-34 U/L Alanine Aminotransferase (ALT/SGPT) 19 0-55 U/L Alkaline Phosphatase 59 40-136 U/L Total Protein 5.0 L 6.4-8.2 GM/DL Albumin 3.1 L 3.2-4.5 GM/DL My Orders Orders - SUKHDEV VELAZQUEZ MD Cbc With Automated Diff (04/06/22 14:33) Comprehensive Metabolic Panel (04/06/22 14:33) Protime With Inr (04/06/22 14:33) Partial Thromboplastin Time (04/06/22 14:33) Ct Abdomen/Pelvis W (04/06/22 14:33) Ct Extremity Lower Left W (04/06/22 14:33) Type And Screen (04/06/22 14:57) Iohexol Injection (Omnipaque 350 Mg/Ml 1 (04/06/22 15:30) Sodium Chloride Flush (Catheter Flush Sy (04/06/22 15:30) Ns (Ivpb) (Sodium Chloride 0.9% Ivpb Bag (04/06/22 15:30) Ed Admission (Communication) (04/06/22 16:04) Medications Given in ED Current Medications Medications Dose Ordered Sig/Zach Route Start Time Stop Time Status Last Admin Dose Admin Iohexol 100 ml ONCE ONCE IV 04/06/22 15:30 04/06/22 15:31 DC 04/06/22 15:52 100 ML Sodium Chloride 10 ml NEEDED PRN IV 04/06/22 15:30 04/06/22 15:52 10 ML Sodium Chloride 100 ml ONCE ONCE IV 04/06/22 15:30 04/06/22 15:31 DC 04/06/22 15:52 80 ML Vital Signs/I&O 04/06/22 14:20 Temp 36.7 Pulse 69 Resp 16 B/P (MAP) 99/45 (63) Pulse Ox 100 Capillary Refill : Progress Note : Progress Note 76-year-old male with above history coming in due to significant bruising to his left thigh. ABCs were intact and vitals are stable on presentation although his blood pressures did start to trend down. Hemoglobin came back at 5.8 and INR greater than 6. CT of his abdomen pelvis as well as extremity ordered to assess for active extravasation. On my interpretation I do not see any obvious evidence of current bleed. CT head negative for acute findings. The patient was admitted to the intensive care unit under Dr. Boyd as an inpatient Departure Impression Primary Impression: Thigh hematoma Qualified Codes: S70.12XA - Contusion of left thigh, initial encounter Additional Impressions: Supratherapeutic INR Anemia due to acute blood loss Disposition: ADMITTED INPATIENT Condition: Stable Admissions Decision to Admit Reason: Admit from ER (General) Decision to Admit/Date: Apr 06, 2022 Time/Decision to Admit Time: 15:45 Departure-Patient Inst. Referrals: ROXIE KIM DO (PCP/Family) Primary Care Physician SUKHDEV VELAZQUEZ MD Apr 06, 2022 14:39
[2022-04-06 14:54] LABS: BASOPHILS % (AUTO) 0 % (0-10); EOSINOPHILS % (AUTO) 0 % (0-10); LYMPHOCYTES # (AUTO) 0.8 10^3/uL (1.0-4.0); LYMPHOCYTES % (AUTO) 12 % (12-44); MEAN CORPUSCULAR HEMOGLOBIN 33 pg (25-34); MEAN CORPUSCULAR HGB CONC 32 g/dL (32-36); MEAN CORPUSCULAR VOLUME 103 fL (80-99); MEAN PLATELET VOLUME 9.6 fL (9.0-12.2); MONOCYTES # (AUTO) 0.8 10^3/uL (0.0-1.0); MONOCYTES % (AUTO) 13 % (0-12); NEUTROPHILS # (AUTO) 4.8 10^3/uL (1.8-7.8); NEUTROPHILS % (AUTO) 75 % (42-75); PLATELET COUNT 198 10^3/uL (130-400); WHITE BLOOD COUNT 6.4 10^3/uL (4.3-11.0)
[2022-04-06 14:56] LABS: HEMATOCRIT 18 % (40-54); HEMOGLOBIN 5.8 g/dL (13.3-17.7)
[2022-04-06 15:09] LABS: ALBUMIN 3.1 GM/DL (3.2-4.5); POTASSIUM 3.7 MMOL/L (3.6-5.0)
[2022-04-06 15:11] LABS: CALCIUM 8.3 MG/DL (8.5-10.1)
[2022-04-06 15:14] LABS: BILIRUBIN,TOTAL 2.3 MG/DL (0.1-1.0)
[2022-04-06 15:15] LABS: CREATININE SERUM 0.8 MG/DL (0.60-1.30)
[2022-04-06 15:22] LABS: INR 6.6 (0.8-1.4); PROTHROMBIN TIME PATIENT 57.8 SEC (12.2-14.7)
[2022-04-06] MEDS ORDERED: CATHETER FLUSH 10 ML SYR IV PRN (15:30)
[2022-04-06] MEDS ORDERED: IOHEXOL 350 MG/ML 100 ML (OMNIPAQUE 350) VIAL IV ONE (15:30)
[2022-04-06] MEDS ORDERED: NS 100 ML (IVPB) BAG IV ONE (15:30)
--- NOTE | 2022-04-06 16:16 | Diagnostic Imaging Report ---
Procedure: CT left lower extremity with contrast. Technique: Multiple axial images of the left lower extremity were obtained after intravenous administration of iodinated contrast. Auto Exposure Controls were utilized during the CT exam to meet ALARA standards for radiation dose reduction. Date: April 06, 2022. Indication: 76-year-old male, history of multiple falls and bruising. Left upper leg pain. Comparison: Left femur radiographs March 30, 2022. Findings: There is abnormal enlargement and altered attenuation of the left gluteus danny muscle which potentially may reflect a large hematoma in the setting of trauma although is nonspecific. This is not an arterial phase exam for optimal evaluation of arterial extravasation of contrast. There is a linear area of increased attenuation in the left gluteus maximum muscle on axial image 20 which potentially could reflect extravasation of contrast. There is nonspecific subcutaneous edema at the level of the more distal aspect of the left thigh. There is a somewhat nodular falx in the anterior subcutaneous changes tissues on axial image 62 measuring 1.4 cm in size. Continued followup to resolution is recommended. A soft tissue attenuation nodule at this location cannot be excluded. There is no identified acute fracture. There is no identified radiopaque foreign body. Impression: 1. Prominent abnormal enlargement of the left gluteus danny muscle which potentially may reflect a large hematoma in the setting of recent injury although is nonspecific. Correlation is needed. Other etiologies including neoplastic etiology would be in the differential diagnosis for imaging appearance alone. Recommend correlation clinically and followup to resolution. 2. There is a linear area of increased attenuation within the left gluteus danny which may reflect extravasation of contrast; however, this is somewhat suboptimally evaluated, especially given lack of arterial phase postcontrast imaging. 3. No identified acute osseous abnormality. Dictated by: Dictated on workstation # [id number]
--- NOTE | 2022-04-06 16:17 | Diagnostic Imaging Report ---
INDICATION: Multiple falls with abdominal pain. TECHNIQUE: Multiple contiguous axial images were obtained through the abdomen and pelvis after administration of intravenous contrast. Auto Exposure Controls were utilized during the CT exam to meet ALARA standards for radiation dose reduction. All CT scans use one or more of the following dose optimizing techniques: automated exposure control, MA and/or KvP adjustment based on patient size and exam type or iterative reconstruction. COMPARISON: There is no prior CT abdomen for comparison. Comparison made to prior CT pelvis of 03/15/2022. FINDINGS: Visualized portions of the lung bases show dependent atelectatic changes. There is no consolidation or pleural fluid or free intraperitoneal air. The patient has an aortic valve prosthesis. The liver shows a few scattered small hypodensities which are probably cysts. Gallbladder appeared normal. Spleen, adrenals, and pancreas appear normal. Kidneys bilaterally appear unremarkable except for a couple of tiny cysts in the right kidney and a nonocclusive stone in the right kidney. There is no retroperitoneal mass or hematoma. There is no ascites or hemoperitoneum. Visualized bowel loops appear unremarkable. There is no pelvic fracture. There is edema of the subcutaneous tissues in the gluteal regions on both sides, with a small fluid collection just posterior to the medial portion of the right iliac bone, measuring about 7.3 x 1.4 cm. There is ill-defined enlargement of the gluteus muscles on both sides, left greater than right. The enlargement of the right gluteus muscle is decreased compared to the prior study. There are multiple areas of hyperdensity within the right gluteus muscle which are probably due to developing calcifications, or less likely extravasation. The enlargement of the left gluteus muscle has increased compared to the prior study. IMPRESSION: There is enlargement of the gluteus muscles on both sides, likely representing intramuscular hematomas. The enlargement of the right gluteus muscle has decreased compared to the previous study of 03/15/2022. There are some hyperdense areas within the right gluteus musculature which probably represent developing calcifications rather than extravasation. The enlargement of the left gluteus muscle has increased compared to the prior study. There is edema in the subcutaneous fat in the pelvis bilaterally with a small or well-defined fluid collection posterior to the right iliac bone medially. There are small cysts in the right kidney as well as a nonocclusive stone in the right kidney. There are tiny cysts in the liver. There is no intra-abdominal hematoma or hemoperitoneum. Patient has a prosthetic aortic valve. Dictated by: Dictated on workstation # [id number]
--- NOTE | 2022-04-06 16:51 | History & Physical-Hospitalist ---
History of Present Illness HPI/Chief Complaint Patient is 75-year-old male past medical history of atrial fibrillation, mechanical heart valve replacement, hypertension, hyperlipidemia, uwr-rxjqgjg-omifijelw diabetes type 2 presented to the emergency department due to bruising on left leg. He is unable to provide any history. All history is obtained from RN care homes, or sprain who is at the bedside. She reports that he moved into comfort care homes on the and has had multiple falls since that time. Review of records reveals he has been in the emergency department for evaluation from these falls. He has had bruising on him since his arrival but it is continued to worsen. Yesterday she noticed that his left thigh was mostly black she attempted to take him to his primary care provider but was unable to get in. She attempted to get lab work .Mac labs today but was unable to get those ordered and decided. Seek evaluation in the emergency department instead. His hemoglobin was found to be 5.8 and his INR was 6.6. He is being admitted for transfusion and further monitoring. Source: RN/MD Exam Limitations: clinical condition Date Seen 04/06/22 Time Seen by a Provider: 16:45 Attending Physician Arlyn Lopez DO PCP Admitting Physician: Attending Physician: Referring Physician Date of Admission Home Medications & Allergies Home Medications Reviewed patient Home Medication Reconciliation performed by pharmacy medication reconciliations materials engineering technician and/or nursing. Patients Allergies have been reviewed. Allergies Allergies Coded Allergies Penicillins (Unverified Allergy, Mild, 04/06/22) penicillin G (Verified Allergy, Unknown, 04/06/22) Past Ndqjsmp-Mjktzg-Lmnrvy Hx Patient Social History Employed/Student: retired Tobacco Use?: No Use of E-Cig and/or Vaping dev: No Substance use?: No Alcohol Use?: No Pt feels they are or have been: Unable to obtain Immunizations Up To Date Date of Influenza Vaccine: Aug 02, 2013 First/Initial COVID19 Vaccinat: june Second COVID19 Vaccination Cristóbal: july Tetanus Booster (TDap): Unknown Date of Pneumonia Vaccine: Aug 02, 2013 Current Status Advance Directives: Yes Communicates: Verbally Primary Language: Wallisian Preferred Spoken Language: Wallisian Past Medical History Surgeries: Cardiac, Testicular, Valve Replacement Atrial Fibrillation, Chronic Edema/Swelling, High Cholesterol, Hypertension, Valvular Heart Disease Dementia, Parkinson's Disease Benign Prostatic Hyperpl, Prostate Problems Anxiety, Depression Blood Disorders: No Family Medical History Reviewed Nursing Family Hx No Pertinent Family Hx 10/2021--HOSPITALIZED FOR COVID-19 PNEUMONIA/RESPIRATORY FAILURE. WAS PLACED IN [facility] AFTER HE WAS DISMISSED FROM THE HOSPITAL. PAST SURGICAL HISTORY: -AORTIC VALVE REPLACEMENT WITH MECHANICAL VALVE-CHRONIC COUMADIN USE -RIGHT ORCHIECTOMY 07/[address] NICHOLS. Review of Systems ROS-Unable to Obtain: due to dementia Constitutional: see HPI Physical Exam Physical Exam Vital Signs Vital Signs - First Documented 04/06/22 04/06/22 04/06/22 14:20 18:20 22:31 Temp 36.7 Pulse 69 Resp 16 B/P (MAP) 99/45 (63) Pulse Ox 100 O2 Delivery Room Air O2 Flow Rate 0.00 Capillary Refill : Less Than 3 Seconds Height, Weight, BMI Height: '" Weight: 228lbs. oz. 103.986168xe; 24.00 BMI Method: General Appearance: Chronically ill, Thin HEENT: PERRL/EOMI, Moist Mucous Membranes Neck: Normal Inspection, Supple Respiratory: Lungs Clear, No Accessory Muscle Use, No Respiratory Distress Cardiovascular: Regular Rate, Rhythm, No JVD, Systolic Murmur Gastrointestinal: Normal Bowel Sounds, Non Tender, Soft Extremity: Normal Capillary Refill, No Calf Tenderness, No Pedal Edema Neurologic/Psychiatric: Alert (awakens to verbal stimuli but quickly back asleep) Skin: Normal Color, Warm/Dry Results Results/Procedures Labs Laboratory Tests 04/06/22 14:45 04/07/22 04:30 04/07/22 07:40 04/07/22 17:05 04/08/22 05:06 Patient resulted labs reviewed. Imaging: Reviewed Imaging Report Imaging [facility] [place], [place] NAME: CHARLES JEREZ [facility] REC#: [id number] PT STATUS: REG ER : 1945 PHYSICIAN: SUKHDEV VELAZQUEZ MD ADMIT DATE: 04/06/22/ER Draft Date of Exam:04/06/22 CT ABDOMEN/PELVIS W INDICATION: Multiple falls with abdominal pain. TECHNIQUE: Multiple contiguous axial images were obtained through the abdomen and pelvis after administration of intravenous contrast. Auto Exposure Controls were utilized during the CT exam to meet ALARA standards for radiation dose reduction. All CT scans use one or more of the following dose optimizing techniques: automated exposure control, MA and/or KvP adjustment based on patient size and exam type or iterative reconstruction. COMPARISON: There is no prior CT abdomen for comparison. Comparison made to prior CT pelvis of 03/15/2022. FINDINGS: Visualized portions of the lung bases show dependent atelectatic changes. There is no consolidation or pleural fluid or free intraperitoneal air. The patient has an aortic valve prosthesis. The liver shows a few scattered small hypodensities which are probably cysts. Gallbladder appeared normal. Spleen, adrenals, and pancreas appear normal. Kidneys bilaterally appear unremarkable except for a couple of tiny cysts in the right kidney and a nonocclusive stone in the right kidney. There is no retroperitoneal mass or hematoma. There is no ascites or hemoperitoneum. Visualized bowel loops appear unremarkable. There is no pelvic fracture. There is edema of the subcutaneous tissues in the gluteal regions on both sides, with a small fluid collection just posterior to the medial portion of the right iliac bone, measuring about 7.3 x 1.4 cm. There is ill-defined enlargement of the gluteus muscles on both sides, left greater than right. The enlargement of the right gluteus muscle is decreased compared to the prior study. There are multiple areas of hyperdensity within the right gluteus muscle which are probably due to developing calcifications, or less likely extravasation. The enlargement of the left gluteus muscle has increased compared to the prior study. IMPRESSION: There is enlargement of the gluteus muscles on both sides, likely representing intramuscular hematomas. The enlargement of the right gluteus muscle has decreased compared to the previous study of 03/15/2022. There are some hyperdense areas within the right gluteus musculature which probably represent developing calcifications rather than extravasation. The enlargement of the left gluteus muscle has increased compared to the prior study. There is edema in the subcutaneous fat in the pelvis bilaterally with a small or well-defined fluid collection posterior to the right iliac bone medially. There are small cysts in the right kidney as well as a nonocclusive stone in the right kidney. There are tiny cysts in the liver. There is no intra-abdominal hematoma or hemoperitoneum. Patient has a prosthetic aortic valve. Dictated on workstation # [id number] Dict: 04/06/22 1601 Trans: 04/06/22 1617 [id number] Interpreted by: TONE BORJAS MD Electronically signed by: [facility]ST[facility] [place], [place] NAME: CHARLES JEREZ [facility] REC#: [id number] PT STATUS: REG ER : 1945 PHYSICIAN: SUKHDEV VELAZQUEZ MD ADMIT DATE: 04/06/22/ER Signed Date of Exam:04/06/22 CT EXTREMITY LOWER LEFT W Procedure: CT left lower extremity with contrast. Technique: Multiple axial images of the left lower extremity were obtained after intravenous administration of iodinated contrast. Auto Exposure Controls were utilized during the CT exam to meet ALARA standards for radiation dose reduction. Date: April 06, 2022. Indication: 76-year-old male, history of multiple falls and bruising. Left upper leg pain. Comparison: Left femur radiographs March 30, 2022. Findings: There is abnormal enlargement and altered attenuation of the left gluteus danny muscle which potentially may reflect a large hematoma in the setting of trauma although is nonspecific. This is not an arterial phase exam for optimal evaluation of arterial extravasation of contrast. There is a linear area of increased attenuation in the left gluteus maximum muscle on axial image 20 which potentially could reflect extravasation of contrast. There is nonspecific subcutaneous edema at the level of the more distal aspect of the left thigh. There is a somewhat nodular falx in the anterior subcutaneous changes tissues on axial image 62 measuring 1.4 cm in size. Continued followup to resolution is recommended. A soft tissue attenuation nodule at this location cannot be excluded. There is no identified acute fracture. There is no identified radiopaque foreign body. Impression: 1. Prominent abnormal enlargement of the left gluteus danny muscle which potentially may reflect a large hematoma in the setting of recent injury although is nonspecific. Correlation is needed. Other etiologies including neoplastic etiology would be in the differential diagnosis for imaging appearance alone. Recommend correlation clinically and followup to resolution. 2. There is a linear area of increased attenuation within the left gluteus danny which may reflect extravasation of contrast; however, this is somewhat suboptimally evaluated, especially given lack of arterial phase postcontrast imaging. 3. No identified acute osseous abnormality. Dictated by: Dictated on workstation # [id number] Dict: 04/06/22 1601 Trans: 04/06/22 1636 [id number] Interpreted by: KATHY DOE MD Electronically signed by: KATHY DOE MD 04/06/22 1636 Assessment/Plan Admission Diagnosis Right thigh hematoma with anemia Admission Status: Inpatient Order (span 2 midnights) Reason for Inpatient Admission: see below Assessment and Plan Right thigh hematoma with anemia Supratherapeutic INR Hgb 5.8 T&C 2 units INR 6.6- no active bleed and with history of mechanical valve will defer reversing at this time Repeat labs in AM HTN Mechanical heart valve A-fib HLD BP somewhat soft, trend Should improve with transfusions Hold anticoagulation and antihypertensives Cardiology consulted, appreciate recs Dementia Advanced dementia Lives at [facility] NIDDMII SSI DVT ppx; Supratherapeutic INR Diagnosis/Problems Diagnosis/Problems (1) HTN (hypertension) (2) Non-insulin dependent type 2 diabetes mellitus (3) Supratherapeutic INR Status: Acute (4) Anemia due to acute blood loss Status: Acute (5) Thigh hematoma Status: Acute Qualifiers: Encounter type: initial encounter Laterality: left Qualified Codes: S70.12XA - Contusion of left thigh, initial encounter (6) Chronic atrial fibrillation Status: Acute (7) Severe dementia Status: Acute (8) Chronic anticoagulation Status: Acute (9) Frequent falls Status: Acute (10) Skin abrasion Status: Acute DENIA MCCABE MD Apr 06, 2022 16:51
--- NOTE | 2022-04-06 17:21 | Diagnostic Imaging Report ---
PROCEDURE: CT head without contrast. TECHNIQUE: Multiple contiguous axial images were obtained through the brain without the use of intravenous contrast. Auto Exposure Controls were utilized during the CT exam to meet ALARA standards for radiation dose reduction. INDICATION: Multiple falls. Headache. Anticoagulation therapy. COMPARISON: CT head without contrast 03/30/2022. FINDINGS: Moderate generalized parenchymal volume loss. 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 No intracranial hemorrhage, mass effect, hydrocephalus or extra-axial fluid collection. No CT evidence of an acute territorial infarction. Osseous structures are intact. Visualized paranasal sinuses and mastoids are clear. IMPRESSION: No acute intracranial CT findings. Dictated by: Dictated on workstation # [id number]
[2022-04-06] MEDS ORDERED: MELATONIN 3 MG TABLET PO PRN (18:45)
[2022-04-06] MEDS ORDERED: ACETAMINOPHEN 325 MG TABLET PO PRN (18:45)
[2022-04-06] MEDS ORDERED: NS IV 500 ML 500 ML IV SCH ×4 (18:45→20:00)
[2022-04-06] MEDS ORDERED: polyethylene glycoL POWDER 17 GM (MIRALAX) PACK PO PRN (18:45)
[2022-04-06] MEDS ORDERED: ONDANSETRON 4 MG/2 ML (SDV) Z0FRAN IV PRN (18:45)
[2022-04-06] MEDS ORDERED: CALCIUM CARBONATE 500 MG (TUMS) TAB.CHEW PO PRN (18:45)
--- NOTE | 2022-04-06 20:06 | Tele-ICU Progress Note ---
Progress Note 75M with afib, mechanical aortic valve on coumadin, HTN, HLD, NIDDM presented due to excessive bruising. Has had multiple recent falls but bruising has continued to get progressively worse. Was unable to be seen by primary or facilitate lab draw, so he was brought to ED by client care consultant. Found to have Hg 5.8, INR 6.6. CT with large hematoma and question of active extravasation within the left gluteus danny. - coagulopathy: supratherapuetic with symptomatic bleeding and active extravasation on CT. Given ongoing bleeding, will cautiously reverse. 1u FFP now. Goal INR2.5-3. RN will update cardiology of plan. - anemia: secondary to acute blood loss. - NIDDM: on low dose A CHS. Glucose on BMP only 92. Can hold off on any SC injections until AM after FFP given. - heart valve: As above, reversing INR but to a therapuetic goal. Cardiology consulted. Focused Exam Height, Weight, BMI Height: '" Weight: 228lbs. oz. 103.910176dc; 26.47 BMI Method: FRANKY ABERNATHY MD Apr 06, 2022 20:06
[2022-04-06 20:17] VITALS: BP 99/45
[2022-04-06] MEDS ORDERED: RT-ALBUTEROL SULF 2.5 MG/3 ML PRE-MIX VIAL INH PRN (20:45)
[2022-04-06 21:22] VITALS: BP 103/62
[2022-04-06 21:34] VITALS: BP 109/76
[2022-04-06 21:35] VITALS: BP 109/76
[2022-04-06 21:50] VITALS: BP 109/58
[2022-04-07] VITALS (10 sets, daily range): BP systolic 91–140; BP diastolic 53–107
[2022-04-07] MEDS: inSUlin ASPART (NovoLOG) 1 UNIT/0.01 ML (CHARGE PER UNIT) SC SCH ×5 (01:07→20:39)
[2022-04-07] MEDS ORDERED: NS IV 500 ML 500 ML ONE (02:46)
[2022-04-07 04:57] LABS: HEMATOCRIT 21 % (40-54); MEAN CORPUSCULAR HEMOGLOBIN 32 pg (25-34); MEAN CORPUSCULAR HGB CONC 31 g/dL (32-36); MEAN CORPUSCULAR VOLUME 102 fL (80-99); MEAN PLATELET VOLUME 9.8 fL (9.0-12.2); PLATELET COUNT 153 10^3/uL (130-400); WHITE BLOOD COUNT 5.7 10^3/uL (4.3-11.0)
[2022-04-07 05:14] LABS: HEMOGLOBIN 6.5 g/dL (13.3-17.7)
[2022-04-07 05:15] LABS: INR 3.6 (0.8-1.4)
[2022-04-07 05:24] LABS: POTASSIUM 3.4 MMOL/L (3.6-5.0)
[2022-04-07 05:30] LABS: CREATININE SERUM 0.6 MG/DL (0.60-1.30)
[2022-04-07] MEDS: POTASSIUM CL 10MEQ/50ML IVPB 50 ML IV SCH (07:53)
[2022-04-07] MEDS ORDERED: KCL 20 MEQ TAB (K-DUR) PO ONE (08:00)
--- NOTE | 2022-04-07 09:20 | Progress Note - Hospitalist ---
Subjective HPI/CC On Admission Date Seen by Provider: Apr 07, 2022 Time Seen by Provider: 09:19 Patient is 75-year-old male past medical history of atrial fibrillation, mechanical heart valve replacement, hypertension, hyperlipidemia, kdb-tuhuvhh-lijzkmnna diabetes type 2 presented to the emergency department due to bruising on left leg. He is unable to provide any history. All history is obtained from care homes, or sprain who is at the bedside. She reports that he moved into [facility] care [facility] on the and has had multiple falls since that time. Review of records reveals he has been in the emergency department for evaluation from these falls. He has had bruising on him since his arrival but it is continued to worsen. Yesterday she noticed that his left thigh was mostly black she attempted to take him to his primary care provider but was unable to get in. She attempted to get lab work .Mac labs today but was unable to get those ordered and decided. Seek evaluation in the emergency department i lizz. His hemoglobin was found to be 5.8 and his INR was 6.6. He is being admitted for transfusion and further monitoring. Subjective/Events-last exam Patient is much more oriented today. He is still demented and unable to provide any history though he is talkative and eating breakfast. Objective Exam Vital Signs Vital Signs Date Time Temp Pulse Resp B/P (MAP) Pulse Ox O2 Delivery O2 Flow Rate FiO2 04/08/22 09:00 98 13 137/78 98 Room Air 04/08/22 08:00 36.5 04/06/22 22:31 0.00 Capillary Refill : Less Than 3 Seconds General Appearance: No Apparent Distress, Chronically ill Respiratory: Lungs Clear, No Respiratory Distress Cardiovascular: Regular Rate, Rhythm, No Murmur Gastrointestinal: Normal Bowel Sounds, Soft Neurologic/Psychiatric: Alert, Oriented x3 Results/Procedures Lab Laboratory Tests 04/07/22 17:05 04/08/22 05:06 Patient resulted labs reviewed. Imaging: Reviewed Imaging Report Assessment/Plan Assessment and Plan Assess & Plan/Chief Complaint Right thigh hematoma with anemia Supratherapeutic INR Hgb up to 7.0 s/p 2 units pRBCs INR down to 3.6 HTN Mechanical heart valve A-fib HLD BP improved, trend Cardiology consulted, appreciate recs Given large drop in INR and no evidence of active bleed will restart Warfarin to avoid dropping out of therapeutic goal Dementia Advanced dementia Lives at [facility] NIDDMII SSI DVT ppx; Supratherapeutic INR Diagnosis/Problems Diagnosis/Problems (1) HTN (hypertension) (2) Non-insulin dependent type 2 diabetes mellitus (3) Supratherapeutic INR Status: Acute (4) Anemia due to acute blood loss Status: Acute (5) Thigh hematoma Status: Acute Qualifiers: Encounter type: initial encounter Laterality: left Qualified Codes: S70.12XA - Contusion of left thigh, initial encounter (6) Chronic atrial fibrillation Status: Acute (7) Severe dementia Status: Acute (8) Chronic anticoagulation Status: Acute (9) Frequent falls Status: Acute (10) Skin abrasion Status: Acute Clinical Quality Measures DVT/VTE Risk/Contraindication: Contraindications-Mechi: Other *list below* Other: ANEMIA DENIA MCCABE MD Apr 07, 2022 09:20
--- NOTE | 2022-04-07 09:34 | Tele-ICU Progress Note ---
Subjective Date Seen by a Provider: Apr 07, 2022 Time Seen by a Provider: 07:15 Subjective/Events-last exam This virtual visit was conducted using real time audio/video. Thank you for asking us to see this patient for Hb 5.8, INR 6.6 on admission. PE: Pale. VSS. O2 sat 100% on RA HEENT: No obvious masses, adenopathy or JVD. Chest: clear to auscultation. CV: RRR S1 S2 No murmur or added sounds. Abd: Non-tender. Bowel sounds Y. : Unremarkable. Pacheco N. CARE TECH/psychiatric: Grossly intact. No obvious focal findings. Extremities: No edema. Capillary refill < 3 seconds. Skin: unremarkable. Results: Elevated INR 3.6, improved. Decreased Hb 6.5, improved. Available chart/ vitals / labs / images reviewed. Video assessment done using teleICU camera, rest of exam as per RN. A/P: Critical Care: critically ill patient. Monitor HB, INR. Cont.PRN transfusion. OK to transfer if hospitalist agrees. Replace K. Discussed with YANIQUE Ovalle. Asked RN to reach out to eICU if any questions or concerns later. Time spent with patient/coordination of care with other health professionals (mins): 15 Sepsis Event Evaluation Height, Weight, BMI Height: '" Weight: 228lbs. oz. 103.245452bg; 26.28 BMI Method: Exam Exam Patient acknowledged, consented, and participated in this virtual visit which was conducted using real time audio/video Vital Signs Date Time Temp Pulse Resp B/P (MAP) Pulse Ox O2 Delivery O2 Flow Rate FiO2 04/07/22 08:39 105 18 117/67 99 Room Air 04/07/22 07:02 36.7 92 13 120/86 100 Room Air 04/07/22 07:00 91 04/07/22 06:29 36.8 92 10 122/75 100 Room Air 04/07/22 06:00 82 15 122/75 100 Room Air 04/07/22 05:00 81 15 106/61 100 Room Air 04/07/22 04:00 100 Room Air 04/07/22 04:00 90 26 133/107 100 Room Air 04/07/22 03:56 36.8 96 12 133/107 100 Room Air 04/07/22 03:41 36.7 91 9 113/66 100 Room Air 04/07/22 03:00 89 26 130/70 100 Room Air 04/07/22 02:53 36.6 86 11 140/89 100 Room Air 04/07/22 02:00 86 20 117/65 100 Room Air 04/07/22 01:00 77 17 116/58 100 Room Air 04/07/22 01:00 80 04/07/22 00:53 36.0 80 10 105/55 100 Room Air 04/07/22 00:38 36.0 79 10 97/58 100 Room Air 04/07/22 00:02 36.4 80 9 112/60 100 Room Air 04/07/22 00:00 100 Room Air 04/07/22 00:00 84 14 112/60 100 Room Air 04/06/22 23:00 82 19 116/64 100 Room Air 04/06/22 22:31 95 Room Air 0.00 04/06/22 22:00 78 13 109/56 100 Room Air 04/06/22 21:50 36.5 82 12 109/58 100 Room Air 04/06/22 21:35 36.5 83 10 109/76 100 Room Air 04/06/22 21:22 36.5 82 10 103/62 100 Room Air 04/06/22 21:00 87 22 115/62 100 Room Air 04/06/22 20:17 36.7 69 100 04/06/22 20:11 81 11 105/70 96 Room Air 04/06/22 20:00 100 Room Air 04/06/22 20:00 84 22 121/78 100 Room Air 04/06/22 19:53 36.4 04/06/22 19:00 80 13 104/48 88 Room Air 04/06/22 19:00 80 04/06/22 18:31 80 04/06/22 18:30 80 16 108/62 97 Room Air 04/06/22 18:20 84 18 104/58 100 Room Air 04/06/22 14:20 36.7 69 16 99/45 (63) 100 I & O 04/07/22 07:00 Intake Total 80 ml Output Total 0 ml Balance 80 ml Height & Weight Height: '" Weight: 228lbs. oz. 103.677094jf; 26.28 BMI Method: General Appearance: No Apparent Distress, Chronically ill HEENT: PERRL/EOMI, Normal ENT Inspection, Pharynx Normal Neck: Full Range of Motion, Normal Inspection, Non Tender, Supple Respiratory: Lungs Clear, No Respiratory Distress Cardiovascular: Regular Rate, Rhythm, No Murmur Capillary Refill: Less Than 3 Seconds Extremity: Normal Capillary Refill, Normal Range of Motion, No Calf Tenderness, No Pedal Edema, Other (significant amount of bruising down the left buttocks and thigh with tenderness) Neurologic/Psychiatric: Alert, Oriented x3 Skin: Normal Color, Warm/Dry Lymphatic: No Adenopathy Results Lab Laboratory Tests 04/06/22 14:45 04/07/22 04:30 04/07/22 07:40 Assessment/Plan Assessment/Plan See free text. Critical Care: Critically Ill Patient TROY BOYLE MD Apr 07, 2022 09:34
--- NOTE | 2022-04-07 11:07 | Physical Therapy Evaluation ---
PT Evaluation-General Medical Diagnosis Admission Date Apr 06, 2022 at 16:05 Medical Diagnosis: Right thigh hematoma with anemia Onset Date: Apr 06, 2022 Therapy Diagnosis Therapy Diagnosis: Gait deficit, strength deficit Height/Weight Weight (Pounds): 228 Precautions Precautions/Isolations: Fall Prevention, Standard Precautions Weight Bear Status Right Lower Extremity: Right Full Weight Bearing Left Lower Extremity: Left Full Weight Bearing Referral Physician: Dr. Boyd Reason for Referral: Evaluation/Treatment Medical History Pertinent Medical History: Dementia Reviewed History: Yes Social History Home: Single Level Current Living Status: Prior Prior Level of Function SCALE: Activities may be completed with or without assistive devices. 2-Wxednaqpch-olbuylt completes the activity by him/herself with no assistance from a helper. 5-Set-up or Clean-up Assistance-helper sets up or cleans up; patient completes activity. [place] assists only prior to or following the activity. 4-Supervision or Touching Assistance-helper provides verbal cues and/or touching/steadying and/or contact guard assistance as patient completes activity. Assistance may be provided throughout the activity or intermittently. 3-Partial/Moderate Assistance-helper does LESS THAN HALF the effort. [place] lifts, holds or supports trunk or limbs, but provides less than half the effort. 2-Substantial/Maximal Assistance-helper does MORE THAN HALF the effort. [place] lifts or holds trunk or limbs and provides more than half the effort. 5-Nrmftqkvs-pbioux does ALL the effort. Patient does none of the effort to complete the activity. Or, the assistance of 2 or more helpers is required for the patient to complete the activity. If activity was not attempted, code reason: 7-Patient Refused. 9-Not Applicable-not attempted and the patient did not perform the activity before the current illness, exacerbation or injury. 10-Not Attempted due to Environmental Limitations-(lack of equipment, weather restraints, etc.). 88-Not Attempted due to Medical Conditions or Safety Concerns. Bed Mobility: 4 Transfers (B,C,W/C): 4 Gait: 4 Stairs: 4 Indoor Mobility (Ambulation): Independent Stairs: Independent Prior Devices Use: Walker PT Evaluation-Current Subjective Patient lying supine in bed upon PT arrival, agreeable to treatment. Patient moderately confused and is unable to verbalize location, time or situation. Sitter in the room. Objective Patient Orientation: Person Attachments: Oxygen, Pacheco Catheter, IV ROM/Strength ROM Lower Extremities WFLs PROM bilaterally all planes Strength Lower Extremities 3/5 bilaterally all planes Sensory Vision: Functional Hearing: Functional Sensation Right Lower Extremit: Intact Sensation Left Lower Extremity: Intact Transfers Roll Left to Right (QC): 4 Sit to Lying (QC): 4 Lying to Sitting/Side of Bed(Q: 4 Sit to Stand (QC): 2 Chair/Akc-zl-Gryqm Xfer(QC): 2 Gait Does the Patient Walk?: No and Walking Goal IS indicated Mode of Locomotion: Walk Anticipated Mode of Locomotion: Walk Balance Sitting Static: Fair Sitting Dynamic: Fair Standing Static: Poor Standing Dynamic: Poor Assessment/Needs Patient tolerated treatment fair, however balance and energy level is poor. He was able to participate in activities, however is impulsive and does not comprehend tasks that are asked of him. Poor safety awareness. Patient performs all observed bed mobility with SBA and transfers with max A. Patient impulsive upon sitting at edge of the bed and immediately attempts to stand up. As soon as he attends full standing, he immediately falls backwards towards the bed. PT is able to slow his descent to the bed however. Patient was given multiple verbal cues and was able to perform sit to stand and bed to chair with Max A for safety. Patient in the chair post treatment and immediately falls asleep. Patient in chair post treatment with all needs met, nursing notified, call light in hand and sitter in the room. Rehab Potential: Good PT Straight Tooth Gear Generator Operator Goals Straight Tooth Gear Generator Operator Goals PT Custodial Goals Time Frame: Apr 27, 2022 Roll Left & Right (QC): 6 Sit to Lying (QC): 6 Lying-Sitting on Side/Bed(QC): 6 Sit to Stand (QC): 4 Chair/Ghx-vw-Dbhia Xfer(QC): 4 Toilet Transfer (QC): 4 Does the Patient Walk: Yes Walk 10 feet (QC): 3 Walk 50ft with 2 Turns (QC): 3 Walk 150 ft (QC): 3 PT Plan Problem List Problem List: Activity Tolerance, Functional Strength, Safety, Balance, Gait, Transfer, Bed Mobility, ROM Treatment/Plan Treatment Plan: Continue Plan of Care Treatment Plan: Bed Mobility, Education, Functional Activity Afsaneh, Functional Strength, Group Therapy, Gait, Safety, Therapeutic Exercise, Transfers Treatment Duration: Jun 01, 2022 Frequency: 6 times per week Estimated Hrs Per Day: .25 hour per day Patient and/or Family Agrees t: Yes Safety Risks/Education Patient Education: Transfer Techniques Teaching Recipient: Patient Teaching Methods: Demonstration, Discussion Response to Teaching: Reinforcement Needed Discharge Recommendations Target Placement SNF Time/GCodes Time In: 840 Time Out: 855 Total Billed Treatment Time: 15 Total Billed Treatment Visit, PRIYA Jane PT Apr 07, 2022 11:07
--- NOTE | 2022-04-07 11:11 | Occupational Therapy Eval ---
OT Evaluation-General/PLF Medical Diagnosis Admission Date Apr 06, 2022 at 16:05 Medical Diagnosis: HTN, DM2, Skin abrasion Onset Date: Apr 06, 2022 Therapy Diagnosis Therapy Diagnosis: Weakness, Decreased ADL skills, Decreased mobility Height/Weight Weight (Pounds): 228 Precautions Precautions/Isolations: Fall Prevention, Standard Precautions Weight Bear Status Weight Bearing Restriction: Weight Bearing/Tolerated Referral Physician: Dr. Boyd Referral Reason: Activity Tolerance, Self Care, Evaluation/Treatment, Strengthening/ROM Medical History Pertinent Medical History: Atrial Fib, DM, Dementia, HTN Additional Medical History Mechanical valve replacement, hyperlipidemia, advanced dementia Current History Pt. lives at [facility] with 24 hour care assistance. He has advanced stage dementia. Pt. began experiencing multiple falls, and came to ER via EMS with severe bruising on his leg. His hemoglobin was found to be 5.8. Pt. has since had a blood transfusion. He currently has a sitter. Reviewed History: Yes Social History Home: [facility] ([facility]) Current Living Status: 24 hour Entry Into Home: Level Entry ADL-Prior Level of Function SCALE: Activities may be completed with or without assistive devices. 0-Kumouffuhn-qifcxny completes the activity by him/herself with no assistance from a helper. 5-Set-up or Clean-up Assistance-helper sets up or cleans up; patient completes activity. [place] assists only prior to or following the activity. 4-Supervision or Touching Assistance-helper provides verbal cues and/or touching/steadying and/or contact guard assistance as patient completes activity. Assistance may be provided throughout the activity or intermittently. 3-Partial/Moderate Assistance-helper does LESS THAN HALF the effort. [place] lifts, holds or supports trunk or limbs, but provides less than half the effort. 2-Substantial/Maximal Assistance-helper does MORE THAN HALF the effort. [place] lifts or holds trunk or limbs and provides more than half the effort. 8-Hfnvpwplt-flrnra does ALL the effort. Patient does none of the effort to complete the activity. Or, the assistance of 2 or more helpers is required for the patient to complete the activity. If activity was not attempted, code reason: 7-Patient Refused. 9-Not Applicable-not attempted and the patient did not perform the activity before the current illness, exacerbation or injury. 10-Not Attempted due to Environmental Limitations-(lack of equipment, weather restraints, etc.). 88-Not Attempted due to Medical Conditions or Safety Concerns. ADL PLOF Comments Pt's nurse at [facility] is present and states that pt. requires full assistance with ADL skills. He is unable to follow cues to bathe/dress, and therefore they do most tasks for him. He does walk continuously without a walker throughout the facility, and often fatigues, but does not cognitively know that he is tired. 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 is poor historian. Does not report pain. Unable to follow cues. Mental Status/Objective Patient Orientation: Confused Attachments: Pacheco Catheter, IV Current Unable to follow cues for MMT or ROM. ADL-Treatment Eating (QC): 2 (Per sitter, pt. was able to eat some of his breakfast, such as finger foods with supervision, but had to be fed by spoon for other things such as eggs. She states that at one point, she gave him an orange wedge, and pt. put the whole thing in his mouth. Required constant supervision with all fe riccardog.) Lower Body Dressing (QC): 1 (Per clinical judgement.) On/Off Footwear (QC): 1 Toileting Hygiene (QC): 1 (Per nursing, pt. required max x 2 just prior to OT entering for dependent mason care and cleanse at bed level.) Other Treatments Pt. in bed. He is alert but not oriented. OT speaks with his hospital nurse, his sitter, and his nurse that is present from [facility]. His nurse from [facility] states that pt. will be able to respond better if the clinician makes good eye contact with him and directly tells him what is wanted. OT attempts to have him wash his face with warm washcloth. OT hands him this, and he does not attempt or know what to do. However, OT is able to wash his face and he seems to enjoy it. OT hands him a brush, and he does not attempt or know what to do. OT brushes his hair for him. PT reports to OT that pt. had been up just earlier, and required max assist due to decreased cognition and sequencing abilities. OT lets [facility] nurse know that goals will be limited to keeping his strength up, so that he can go back to previous level. She verbalizes understanding of this. Education OT Patient Education: Correct positioning, Modified ADL techniques, Progress toward Goal/Update tx plan, Purpose of tx/functional activities, Reviewed precautions, Rehab process Teaching Recipient: Patient, Primary Caregiver Teaching Methods: Demonstration, Discussion Response to Teaching: Unable to Return Demonstration, Unable to Comprehend OT [facility] Goals Pilot Can Router Goals Time Frame: Apr 21, 2022 Eating (QC): 3 (min assist) Oral Hygiene (QC): 3 (min assist) Additional Goals: 1-Demonstrate ADL Tasks, 3-ImproveStrength/Afsaneh 1=Demonstrate adherence to instructed precautions during ADL tasks. 2=Patient will verbalize/demonstrate understanding of assistive devices/modifications for ADL. 3=Patient will improve strength/tolerance for activity to enable patient to perform ADL's. OT Education/Plan Problem List/Assessment Assessment: Decreased Activ Tolerance, Decreased Safety Aware, Decreased UE Strength, Dependent Transfers, Impaired Bed Mobility, Impaired Cognition, Impaired Coordination, Impaired Funct Balance, Impaired I ADL's, Impaired Self-Care Skills, Restricted Funct UE ROM Discharge Recommendations Plan/Recommendations: Continue POC Therapy Discharge Recommendati: 24 Hour Supervision Treatment Plan/Plan of Care Treatment,Training & Education: Yes Patient would benefit from OT for education, treatment and training to promote independence in ADL's, mobility, safety and/or upper extremity function for ADL's. Plan of Care: ADL Retraining, Caregiver Training, Functional Mobility, UE Funct Exercise/Act Treatment Duration: Apr 08, 2022 Frequency: 5 times per week Estimated Hrs Per Day: .25 hour per day Agreement: Yes Rehab Potential: Guarded Pt. would benefit from skilled OT services 3-5x per week to address strength, mobility, and limited ADL skills for return to prior level. Time/GCodes Start Time: 10:40 Stop Time: 11:00 Total Time Billed (hr/min): 20 Billed Treatment Time 1, LYDIA LOVING OT Apr 07, 2022 11:11
[2022-04-07] MEDS ORDERED: NS IV 500 ML 500 ML IV SCH (11:30)
--- NOTE | 2022-04-07 11:47 | Consultation-Cardiology ---
HPI-Cardiology Cardiology Consultation Date of Consultation 04/07/22 Date of Admission Time Seen by Provider: 09:00 Indication: Coumadin toxicity HPI Patient was seen at bedside, sitting comfortably. Has underlying dementia. Unable to provide full history. History was obtained by reviewing his record and with the brief interview and exam. This is a 75-year-old gentleman with history of paroxysmal atrial fibrillation, mechanical heart valve placement, hypertension hyperlipidemia, diabetes mellitus. He sustained multiple falls over the past few weeks. He started to have a large hematoma on his right thigh . Came into the emergency room with significant pain and bruising on his right thigh, denied any chest pain. He was severely anemic and has Coumadin toxicity with elevated INR. Home Medications & Allergies Allergies: Coded Allergies: Penicillins (Unverified Allergy, Mild, 04/06/22) penicillin G (Verified Allergy, Unknown, 04/06/22) Home Medication List Reviewed: Yes GEN-Jnzszq-Ekxnoo Hx Patient Social History Employed/Student: retired Have you traveled recently?: No Alcohol Use?: No Immunizations Up To Date Date of Pneumonia Vaccine: Aug 02, 2013 Date of Influenza Vaccine: Aug 02, 2013 Past Medical History Discussed below Family Medical History Significant Family History: No Pertinent Family Hx Family Medical Hx Noncontributory Review of Systems-General Review of Systems Constitutional: see HPI; No fever; malaise, weakness EENTM: see HPI; No blurred vision Respiratory: no symptoms reported, see HPI Cardiovascular: see HPI; No chest pain; edema; No Hx of Intervention, No palpitations, No syncope, No vascular heart diseas, No other Gastrointestinal: no symptoms reported Genitourinary: no symptoms reported, see HPI Musculoskeletal: see HPI, other (bruising to left leg) Skin: see HPI, change in color, other (Large bruising and ecchymosis on the left thigh) Psychiatric/Neurological: No Symptoms Reported, See HPI All Other Systems Reviewed Negative Unless Noted: Yes Reviewed Test Results Reviewed Test Results Lab Laboratory Tests Test 04/06/22 14:45 04/06/22 20:18 04/07/22 04:30 04/07/22 05:47 Range/Units White Blood Count 6.4 5.7 4.3-11.0 10^3/uL Red Blood Count 1.75 L 2.06 L 4.30-5.52 10^6/uL Hemoglobin 5.8 #*L 6.5 *L 13.3-17.7 g/dL Hematocrit 18 *L 21 L 40-54 % Mean Corpuscular Volume 103 H 102 H 80-99 fL Mean Corpuscular Hemoglobin 33 32 25-34 pg Mean Corpuscular Hemoglobin Concent 32 31 L 32-36 g/dL Red Cell Distribution Width 14.8 H 17.8 H 10.0-14.5 % Platelet Count 198 153 130-400 10^3/uL Mean Platelet Volume 9.6 9.8 9.0-12.2 fL Immature Granulocyte % (Auto) 0 % Neutrophils (%) (Auto) 75 42-75 % Lymphocytes (%) (Auto) 12 12-44 % Monocytes (%) (Auto) 13 H 0-12 % Eosinophils (%) (Auto) 0 0-10 % Basophils (%) (Auto) 0 0-10 % Neutrophils # (Auto) 4.8 1.8-7.8 10^3/uL Lymphocytes # (Auto) 0.8 L 1.0-4.0 10^3/uL Monocytes # (Auto) 0.8 0.0-1.0 10^3/uL Eosinophils # (Auto) 0.0 0.0-0.3 10^3/uL Basophils # (Auto) 0.0 0.0-0.1 10^3/uL Immature Granulocyte # (Auto) 0.0 0.0-0.1 10^3/uL Prothrombin Time 57.8 *H 36.0 H 12.2-14.7 SEC INR Comment 6.6 *H 3.6 H 0.8-1.4 Activated Partial Thromboplast Time 89 H 24-35 SEC Sodium Level 140 141 135-145 MMOL/L Potassium Level 3.7 3.4 L 3.6-5.0 MMOL/L Chloride Level 105 107 98-107 MMOL/L Carbon Dioxide Level 25 23 21-32 MMOL/L Anion Gap 10 11 5-14 MMOL/L Blood Urea Nitrogen 22 H 16 7-18 MG/DL Creatinine 0.80 0.60 0.60-1.30 MG/DL Estimat Glomerular Filtration Rate 92 101 BUN/Creatinine Ratio 28 27 Glucose Level 139 H 96 70-105 MG/DL Calcium Level 8.3 L 8.0 L 8.5-10.1 MG/DL Corrected Calcium 9.0 8.5-10.1 MG/DL Total Bilirubin 2.3 H 0.1-1.0 MG/DL Aspartate Amino Transf (AST/SGOT) 25 5-34 U/L Alanine Aminotransferase (ALT/SGPT) 19 0-55 U/L Alkaline Phosphatase 59 40-136 U/L Total Protein 5.0 L 6.4-8.2 GM/DL Albumin 3.1 L 3.2-4.5 GM/DL Glucometer 95 88 70-110 MG/DL Test 04/07/22 07:40 04/07/22 10:53 Range/Units Hemoglobin 7.0 L 13.3-17.7 g/dL Hematocrit 22 L 40-54 % Glucometer 106 70-110 MG/DL Physical Exam Physical Exam Vital Signs Vital Signs - First Documented 04/06/22 04/06/22 04/06/22 14:20 18:20 22:31 Temp 36.7 Pulse 69 Resp 16 B/P (MAP) 99/45 (63) Pulse Ox 100 O2 Delivery Room Air O2 Flow Rate 0.00 Capillary Refill : Less Than 3 Seconds Height, Weight, BMI Height: '" Weight: 228lbs. oz. 103.025908ee; 26.28 BMI Method: General Appearance: No Apparent Distress, Chronically ill HEENT: PERRL/EOMI, Normal ENT Inspection, Pharynx Normal Neck: Full Range of Motion, Normal Inspection, Non Tender, Supple Respiratory: Lungs Clear, No Respiratory Distress Cardiovascular: Regular Rate, Rhythm, No Murmur Gastrointestinal: Normal Bowel Sounds, Soft Back: Normal Inspection, No CVA Tenderness, No Vertebral Tenderness Extremity: Normal Capillary Refill, Normal Range of Motion, No Calf Tenderness, No Pedal Edema, Other (significant amount of bruising down the left buttocks and thigh with tenderness) Neurologic/Psychiatric: Alert, Oriented x3 Skin: Normal Color, Warm/Dry Lymphatic: No Adenopathy A/P-Cardiology Admission Diagnosis Right thigh hematoma Coumadin toxicity Anemia Aortic valve replacement Paroxysmal atrial fibrillation Assessment/Plan Large right thigh hematoma, multiple falls., Appear to be stable at this time not worsening. Continue to monitor closely Coumadin toxicity, maintained on chronic coumadinization due to aortic valve replacement and paroxysmal atrial fibrillation. INR on admission was 6. Patient received 2 units of packed RBCs and received 1 unit of fresh frozen plasma. INR today is 3.6. Continue to hold Coumadin and monitor closely. Severe anemia, secondary to acute blood loss. Received 2 units of packed RBCs. Continue to monitor H&H closely Aortic valve replacement, no recent work-up. I will evaluate 2D echo Paroxysmal atrial fibrillation, I will evaluate twelve-lead EKG. Continue to monitor closely Hypertension, monitor blood pressure closely Hyperlipidemia. Monitor lipids Diabetes mellitus, managed by primary care physician Advanced dementia, patient is in a care home. Clinical Quality Measures DVT/VTE Risk/Contraindication: Contraindications-Mechi: Other *list below* Other: ANEMIA MAHESH HERNANDEZ MD Apr 07, 2022 11:47
[2022-04-07 17:14] LABS: HEMOGLOBIN 8.6 g/dL (13.3-17.7)
[2022-04-08 05:37] LABS: HEMATOCRIT 26 % (40-54); HEMOGLOBIN 8.7 g/dL (13.3-17.7); MEAN CORPUSCULAR HEMOGLOBIN 32 pg (25-34); MEAN CORPUSCULAR HGB CONC 33 g/dL (32-36); MEAN CORPUSCULAR VOLUME 95 fL (80-99); MEAN PLATELET VOLUME 9.4 fL (9.0-12.2); PLATELET COUNT 201 10^3/uL (130-400); WHITE BLOOD COUNT 6.3 10^3/uL (4.3-11.0)
[2022-04-08 05:50] LABS: INR 2.8 (0.8-1.4); PROTHROMBIN TIME PATIENT 29.7 SEC (12.2-14.7)
[2022-04-08 05:57] LABS: POTASSIUM 3.7 MMOL/L (3.6-5.0)
[2022-04-08 05:59] LABS: CALCIUM 8.1 MG/DL (8.5-10.1)
[2022-04-08 06:03] LABS: CREATININE SERUM 0.58 MG/DL (0.60-1.30)
[2022-04-08] MEDS: POTASSIUM CL 10MEQ/50ML IVPB 50 ML IV SCH (07:39)
[2022-04-08] MEDS: inSUlin ASPART (NovoLOG) 1 UNIT/0.01 ML (CHARGE PER UNIT) SC SCH ×4 (07:41→20:54)
[2022-04-08] MEDS: KCL 20 MEQ TAB (K-DUR) PO SCH (07:41)
--- NOTE | 2022-04-08 08:32 | Tele-ICU Progress Note ---
Progress Note video rounds completed 75 y/o male with hx of aortic valve replacement and a fib on chronic coumadin admitted with hx of falls and right thigh hematoma. Initial hgb was 5.8, transfused two units PRBCs Hgb today 8.7. INR was elevated and coumadin being held Cardiology following Focused Exam Height, Weight, BMI Height: '" Weight: 228lbs. oz. 103.754004ly; 26.28 BMI Method: Laboratory Tests 04/07/22 17:05 04/08/22 05:06 Results Results/Procedures Labs Laboratory Tests 04/06/22 14:45 04/07/22 04:30 04/07/22 07:40 04/07/22 17:05 04/08/22 05:06 Patient resulted labs reviewed. Imaging: Reviewed Imaging Report Results Labs Labs Laboratory Tests 04/07/22 10:53: Glucometer 106 04/07/22 16:43: Glucometer 118H 04/07/22 17:05: Hemoglobin 8.6#L, Hematocrit 26L 04/07/22 20:33: Glucometer 115H 04/08/22 05:06: White Blood Count 6.3, Red Blood Count 2.74L, Hemoglobin 8.7L, Hematocrit 26L, Mean Corpuscular Volume 95, Mean Corpuscular Hemoglobin 32, Mean Corpuscular Hemoglobin Concent 33, Red Cell Distribution Width 18.3H, Platelet Count 201, Mean Platelet Volume 9.4, Prothrombin Time 29.7H, INR Comment 2.8H, Sodium Level 140, Potassium Level 3.7, Chloride Level 107, Carbon Dioxide Level 22, Anion Gap 11, Blood Urea Nitrogen 14, Creatinine 0.58L, Estimat Glomerular Filtration Rate 102, BUN/Creatinine Ratio 24, Glucose Level 99, Calcium Level 8.1L, Magnesium Level 1.8 04/08/22 05:56: Glucometer 109 JORJE ARGUETA MD Apr 08, 2022 08:32
[2022-04-08] MEDS: MAGNESIUM 1 GM/100 ML IVPB 100 ML IV SCH (08:57)
--- NOTE | 2022-04-08 09:59 | Progress Note - Hospitalist ---
Subjective HPI/CC On Admission Date Seen by Provider: Apr 08, 2022 Patient is 75-year-old male past medical history of atrial fibrillation, mechanical heart valve replacement, hypertension, hyperlipidemia, emk-ribnubp-albrrndzi diabetes type 2 presented to the emergency department due to bruising on left leg. He is unable to provide any history. All history is obtained from [facility], or sprain who is at the bedside. She reports that [facility] the and has had multiple falls since that time. Review of records reveals he has been in the emergency department for evaluation from these falls. He has had bruising on him since his arrival but it is continued to worsen. Yesterday she noticed that his left thigh was mostly black she attempted to take him to his primary care provider but was unable to get in. She attempted to get lab work .[facility] labs today but was unable to get those ordered and decided. Seek evaluation in the emergency department instead. His hemoglobin was found to be 5.8 and his INR was 6.6. He is being admitted for transfusion and further monitoring. Subjective/Events-last exam Pt laying in bed. Sitter at bedside. No complaints. Objective Exam Vital Signs Vital Signs Date Time Temp Pulse Resp B/P (MAP) Pulse Ox O2 Delivery O2 Flow Rate FiO2 04/08/22 09:00 98 13 137/78 98 Room Air 04/08/22 08:00 36.5 04/06/22 22:31 0.00 Capillary Refill : Less Than 3 Seconds General Appearance: No Apparent Distress, Chronically ill Respiratory: Lungs Clear, No Respiratory Distress Cardiovascular: Regular Rate, Rhythm, Systolic Murmur Neurologic/Psychiatric: Alert, Disoriented Results/Procedures Lab Laboratory Tests 04/07/22 17:05 04/08/22 05:06 Patient resulted labs reviewed. Imaging: Reviewed Imaging Report Assessment/Plan Assessment and Plan Assess & Plan/Chief Complaint Right thigh hematoma with anemia Supratherapeutic INR Hgb up to 8.7- s/p 3 unit pRBCs total INR down to 2.8 PT/OT for debility Appeared to have very poor balance yesterday with PT HTN Mechanical heart valve A-fib HLD BP improved, trend Cardiology consulted, appreciate recs Restart Warfarin at smaller dose Dementia Advanced dementia [facility] at [facility] NIDDMII SSI DVT ppx; Warfarin Critical Care Critically Ill Patient Diagnosis/Problems Diagnosis/Problems (1) HTN (hypertension) (2) Non-insulin dependent type 2 diabetes mellitus (3) Supratherapeutic INR Status: Acute (4) Anemia due to acute blood loss Status: Acute (5) Thigh hematoma Status: Acute Qualifiers: Encounter type: initial encounter Laterality: left Qualified Codes: S70.12XA - Contusion of left thigh, initial encounter (6) Chronic atrial fibrillation Status: Acute (7) Severe dementia Status: Acute (8) Chronic anticoagulation Status: Acute (9) Frequent falls Status: Acute (10) Skin abrasion Status: Acute Clinical Quality Measures DVT/VTE Risk/Contraindication: Contraindications-Mechi: Other *list below* Other: ANEMIA DENIA MCCABE MD Apr 08, 2022 09:59
--- NOTE | 2022-04-08 12:24 | Cardiology Progress Note ---
Subjective Date Seen by Provider: Apr 08, 2022 Time Seen by Provider: 12:22 Subjective/Events-last exam Patient is laying down in bed, no new complaint, still lethargic. Did not provide much history Review of Systems General: No Chills, No Night Sweats; Fatigue, Malaise; No Appetite, No Other HEENT: No Head Aches, No Visual Changes, No Eye Pain, No Ear Pain, No Dysph deepak, No Sinus Congestion, No Post Nasal Drip, No Sore Throat, No Other Pulmonary: No Dyspnea, No Cough, No Pleuritic Chest Pain, No Other Cardiovascular: No: Chest Pain, Palpitations, Orthopnea, Paroxysmal Noc. Dyspnea, Edema, Lt Headedness, Other Objective-Cardiology Exam Last Set of Vital Signs Vital Signs 04/06/22 04/08/22 04/08/22 22:31 11:02 12:00 Temp 36.8 Pulse 93 Resp 27 B/P (MAP) 143/75 Pulse Ox 100 O2 Delivery Room Air O2 Flow Rate 0.00 I&O Intake and Output 04/08/22 00:00 Intake Total 1430 ml Balance 1430 ml Intake Oral 1300 ml IV Total 80 ml Other 50 ml # Voids 3 # Urine Diapers 5 # Bowel Movements 3 General: Alert HEENT: Atraumatic Neck: Supple Lungs: Clear to Auscultation, Normal Air Movement Heart: Normal S1, Normal S2, Other (Metallic click) Abdomen: Normal Bowel Sounds Extremities: No Clubbing, No Cyanosis Skin: Other (Large bruise on the thigh) Neuro: Other (Not following commands) Psych/Mental Status: Mood NL Results Lab Laboratory Tests 04/07/22 17:05 04/08/22 05:06 A/P-Cardiology Admission Diagnosis Right thigh hematoma Coumadin toxicity Anemia Aortic valve replacement Paroxysmal atrial fibrillation Assessment/Plan Large left thigh hematoma, multiple falls., Appear to be stable at this time not worsening. Continue to monitor closely Coumadin toxicity, maintained on chronic coumadinization due to aortic valve replacement and paroxysmal atrial fibrillation. INR on admission was 6. Patient received 2 units of packed RBCs and received 1 unit of fresh frozen plasma. INR today is 2.8. Continue to hold Coumadin and monitor closely. Will restart Coumadin once INR is below 2 if no active bleeding or worsening bleeding was identified Severe anemia, secondary to acute blood loss. Received 2 units of packed RBCs. Continue to monitor H&H closely Aortic valve replacement, no recent work-up. I will evaluate 2D echo Paroxysmal atrial fibrillation, I will evaluate twelve-lead EKG. Continue to monitor closely Hypertension, monitor blood pressure closely Hyperlipidemia. Monitor lipids Diabetes mellitus, managed by primary care physician Advanced dementia, patient is in a fdc. MAHESH HERNANDEZ MD Apr 08, 2022 12:24
[2022-04-08] MEDS ORDERED: ACET-93 PO (16:03)
[2022-04-08] MEDS ORDERED: METO50TA15 PO (16:03)
[2022-04-08] MEDS ORDERED: LORA-404 PO (16:03)
[2022-04-08] MEDS ORDERED: RISP1TAB94 PO (16:03)
[2022-04-08] MEDS ORDERED: WARF-47 PO (16:03)
[2022-04-08] MEDS ORDERED: SENN8.6T17 PO (16:03)
[2022-04-08] MEDS ORDERED: WRF2.5T PO (16:03)
[2022-04-08] MEDS ORDERED: PROP20TA5 PO (16:03)
[2022-04-08] MEDS ORDERED: ESCI-2 PO (16:03)
[2022-04-08] MEDS ORDERED: warFARin 2.5 MG (COUMADIN) TAB PO SCH (18:00)
[2022-04-09 05:56] LABS: HEMATOCRIT 28 % (40-54); HEMOGLOBIN 9.1 g/dL (13.3-17.7); MEAN CORPUSCULAR HEMOGLOBIN 32 pg (25-34); MEAN CORPUSCULAR HGB CONC 33 g/dL (32-36); MEAN CORPUSCULAR VOLUME 97 fL (80-99); PLATELET COUNT 212 10^3/uL (130-400); WHITE BLOOD COUNT 5.1 10^3/uL (4.3-11.0)
[2022-04-09] MEDS: inSUlin ASPART (NovoLOG) 1 UNIT/0.01 ML (CHARGE PER UNIT) SC SCH ×3 (06:06→16:16)
[2022-04-09 06:12] LABS: POTASSIUM 3.7 MMOL/L (3.6-5.0)
[2022-04-09 06:18] LABS: CREATININE SERUM 0.61 MG/DL (0.60-1.30); PROTHROMBIN TIME PATIENT 23.2 SEC (12.2-14.7)
[2022-04-09 06:22] LABS: MAGNESIUM 1.7 MG/DL (1.6-2.4)
[2022-04-09] MEDS: KCL 20 MEQ TAB (K-DUR) PO SCH (06:24)
[2022-04-09] MEDS: POTASSIUM CL 10MEQ/50ML IVPB 50 ML IV SCH (06:24)
[2022-04-09] MEDS: MAGNESIUM 1 GM/100 ML IVPB 100 ML IV SCH ×2 (06:38→06:46)
[2022-04-09] MEDS ORDERED: DICL20GE TP (08:16)
[2022-04-09] MEDS ORDERED: LORA-404 PO (08:17)
[2022-04-09] MEDS ORDERED: WRF2.5T PO ×2 (08:18→12:59)
[2022-04-09] MEDS ORDERED: WARF-47 PO (08:18)
--- NOTE | 2022-04-09 09:41 | Cardiology Progress Note ---
Subjective Date Seen by Provider: Apr 09, 2022 Time Seen by Provider: 09:40 Subjective/Events-last exam Patient is in bed, denies any chest pain or dyspnea. Objective-Cardiology Exam Last Set of Vital Signs Vital Signs 04/08/22 04/09/22 04/09/22 23:09 07:31 08:00 Temp 36.1 Pulse 85 Resp 20 B/P (MAP) 139/83 Pulse Ox 98 O2 Delivery Room Air O2 Flow Rate 0.00 I&O Intake and Output 04/09/22 00:00 Intake Total 2150 ml Balance 2150 ml Intake Oral 2150 ml # Voids 12 # Urine Diapers 3 General: Alert HEENT: Atraumatic Neck: Supple Lungs: Clear to Auscultation, Normal Air Movement Heart: Normal S1, Normal S2, Other (Metallic click) Abdomen: Normal Bowel Sounds Extremities: No Clubbing, No Cyanosis Skin: Other (Large bruise on the thigh) Neuro: Other (Not following commands) Psych/Mental Status: Mood NL Results Lab Laboratory Tests 04/09/22 05:50 A/P-Cardiology Admission Diagnosis Right thigh hematoma Coumadin toxicity Anemia Aortic valve replacement Paroxysmal atrial fibrillation Assessment/Plan Large left thigh hematoma, multiple falls., Appear to be stable at this time. Continue to monitor closely Coumadin toxicity, maintained on chronic coumadinization due to aortic valve replacement and paroxysmal atrial fibrillation. INR on admission was 6. Patient received 2 units of packed RBCs and received 1 unit of fresh frozen plasma. INR today is 2.0. Coumadin restarted, continue to monitor INR Severe anemia, secondary to acute blood loss. Received 2 units of packed RBCs. Continue to monitor H&H closely Aortic valve replacement, no recent work-up. I will evaluate 2D echo Paroxysmal atrial fibrillation, I will evaluate twelve-lead EKG. Continue to monitor closely Hypertension, monitor blood pressure closely Hyperlipidemia. Monitor lipids Diabetes mellitus, managed by primary care physician Advanced dementia, patient is in a long-term. Supervisory-Addendum Brief Supervisory Addendum Participated in pt care: history, MDM, physical Personally performed: exam, history, MDM Care discussed with: [id number] Results interpretation: Verified all documentation Notes: Patient was seen and evaluated with Clara, examination performed, management plan was discussed, agree with the current scribed note, I made few changes to the note using Italic font Patient was seen at bedside, laying down comfortably, pleasant santos INR is down to 2, we are restarting Coumadin at 2 mg daily and monitor INR closely Continue to monitor the hematoma closely CLARA ZAMAN Apr 09, 2022 09:41 MAHESH HERNANDEZ MD Apr 09, 2022 11:08
--- NOTE | 2022-04-09 11:20 | Physical Therapy Daily Note ---
PT Daily Note-Current Subjective Patient is in bed with sitter present. Agrees to walking. Mental Status Patient Orientation: Confused (severe dementia) Transfers SCALE: Activities may be completed with or without assistive devices. 3-Vurqdtnaej-aqcblkb completes the activity by him/herself with no assistance from a helper. 5-Set-up or Clean-up Assistance-helper sets up or cleans up; patient completes activity. [place] assists only prior to or following the activity. 4-Supervision or Touching Assistance-helper provides verbal cues and/or touching/steadying and/or contact guard assistance as patient completes activity. Assistance may be provided throughout the activity or intermittently. 3-Partial/Moderate Assistance-helper does LESS THAN HALF the effort. [place] lifts, holds or supports trunk or limbs, but provides less than half the effort. 2-Substantial/Maximal Assistance-helper does MORE THAN HALF the effort. [place] lifts or holds trunk or limbs and provides more than half the effort. 3-Lypfraqry-pjrnaf does ALL the effort. Patient does none of the effort to complete the activity. Or, the assistance of 2 or more helpers is required for the patient to complete the activity. If activity was not attempted, code reason: 7-Patient Refused. 9-Not Applicable-not attempted and the patient did not perform the activity before the current illness, exacerbation or injury. 10-Not Attempted due to Environmental Limitations-(lack of equipment, weather restraints, etc.). 88-Not Attempted due to Medical Conditions or Safety Concerns. Lying to Sitting/Side of Bed(Q: 6 Sit to Stand (QC): 4 Weight Bearing Right Lower Extremity: Right Full Weight Bearing Left Lower Extremity: Left Full Weight Bearing Gait Training Distance: >800' Walk 10 feet (QC): 4 Walk 50 ft with 2 Turns(QC): 4 Walk 150 ft (QC): 4 Gait Assistive Device: None CGA for safety Assessment Patient is currently at OF with all gross motor skills. PT to dismiss patient from services. Nursing to continue to ambulate PRN in hallway. SW notified. PT Forging Press Lever Tender Goals Forging Press Lever Tender Goals PT Forging Press Lever Tender Goals Time Frame: Apr 27, 2022 Roll Left & Right (QC): 6 Sit to Lying (QC): 6 Lying-Sitting on Side/Bed(QC): 6 Sit to Stand (QC): 4 Chair/Dld-wk-Ecuct Xfer(QC): 4 Toilet Transfer (QC): 4 Does the Patient Walk: Yes Walk 10 feet (QC): 3 Walk 50ft with 2 Turns (QC): 3 Walk 150 ft (QC): 3 PT Plan Treatment/Plan Treatment Plan: Discontinue PT Treatment Plan: Bed Mobility, Education, Functional Activity Afsaneh, Functional Strength, Group Therapy, Gait, Safety, Therapeutic Exercise, Transfers Treatment Duration: Jun 01, 2022 Frequency: 6 times per week Estimated Hrs Per Day: .25 hour per day Patient and/or Family Agrees t: Yes Time/GCodes Time In: 1035 Time Out: 1046 Total Billed Treatment Time: 11 Total Billed Treatment 1 visit FA 11 min TAMELA BROOKE PT Apr 09, 2022 11:20
[2022-04-09 11:32] VITALS: BP 110/60
--- NOTE | 2022-04-09 13:01 | Occupational Ther Daily Note ---
OT Current Status-Daily Note Subjective Pt alert, lying in bed. Sitter present in room. When asked about getting up to walk pt agreed. Mental Status/Objective Patient Orientation: Person, Confused ADL-Treatment Therapy Code Descriptions/Definitions Functional [place] Measure: 0=Not Assessed/NA 4=Minimal Assistance 1=Total Assistance 5=Supervision or Setup 2=Maximal Assistance 6=Modified [place] 3=Moderate Assistance 7=Complete IndependenceSCALE: Activities may be completed with or without assistive devices. 7-Lbyunehmaw-plwkkit completes the activity by him/herself with no assistance from a helper. 5-Set-up or Clean-up Assistance-helper sets up or cleans up; patient completes activity. [place] assists only prior to or following the activity. 4-Supervision or Touching Assistance-helper provides verbal cues and/or touc socorro/steadying and/or contact guard assistance as patient completes activity. Assistance may be provided throughout the activity or intermittently. 3-Partial/Moderate Assistance-helper does LESS THAN HALF the effort. [place] lifts, holds or supports trunk or limbs, but provides less than half the effort. 2-Substantial/Maximal Assistance-helper does MORE THAN HALF the effort. [place] lifts or holds trunk or limbs and provides more than half the effort. 8-Jvhwszqhv-ohrpsn does ALL the effort. Patient does none of the effort to complete the activity. Or, the assistance of 2 or more helpers is required for the patient to complete the activity. If activity was not attempted, code reason: 7-Patient Refused. 9-Not Applicable-not attempted and the patient did not perform the activity before the current illness, exacerbation or injury. 10-Not Attempted due to Environmental Limitations-(lack of equipment, weather restraints, etc.). 88-Not Attempted due to Medical Conditions or Safety Concerns. Other Treatment Pt is ambulating up in halls and requires SBA or hand hold assist for safety. Pt is easily directed to turn in certain direction though continues to want to ambulate after session is ended. Nrsg to continue to ambulate with pt. I ndependent with bed mobility. Sitter present with pt at end of session. All needs met. OT Skilled Nursing Goals Distribution Lead Goals Time Frame: Apr 21, 2022 Eating (QC): 3 (min assist) Oral Hygiene (QC): 3 (min assist) Additional Goals: 1-Demonstrate ADL Tasks, 3-ImproveStrength/Afsaneh 1=Demonstrate adherence to instructed precautions during ADL tasks. 2=Patient will verbalize/demonstrate understanding of assistive devices/modifications for ADL. 3=Patient will improve strength/tolerance for activity to enable patient to perform ADL's. OT Education/Plan Problem List/Assessment Assessment: Decreased Activ Tolerance, Decreased Safety Aware, Impaired Cognition, Impaired Funct Balance Discharge Recommendations Plan/Recommendations: Continue POC Treatment Plan/Plan of Care Patient would benefit from OT for education, treatment and training to promote independence in ADL's, mobility, safety and/or upper extremity function for ADL's. Plan of Care: ADL Retraining, Caregiver Training, Functional Mobility, UE Funct Exercise/Act Treatment Duration: Apr 08, 2022 Frequency: 5 times per week Estimated Hrs Per Day: .25 hour per day Agreement: Yes Rehab Potential: Guarded Time/GCodes Start Time: 10:35 Stop Time: 10:46 Total Time Billed (hr/min): 11 Billed Treatment Time 1 visit-FA 1 (11 min) YUMIKO KRUEGER Apr 09, 2022 13:01
[2022-04-09 15:33] VITALS: BP 131/74
--- NOTE | 2022-04-09 17:13 | Discharge Summary ---
Diagnosis/Chief Complaint Date of Admission Apr 06, 2022 at 16:05 Date of Discharge Discharge Date: Apr 09, 2022 Discharge Diagnosis 1. Supratherapeutic INR--improved 2. Acute Blood Loss Anemia--S/P transfusion 3. Mechanical Aortic Valve--requires warfarin treatment 4. Recurrent Falls with numerous hematomos 5. 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 Hypertension--BP stable Discharge Summary Hospital Course Was the Problem List Reviewed?: Yes Hospital Course This is a 77 year old male with end stage dementia who is on chronic warfarin therapy due to presence of mechanical aortic valve who has had recurrent falls. His left thigh became severely bruised after his last fall and therefore he was brought to the emergency room. He was found to be severely anemic with a Hgb of 5.8 and his INR was supratherapeutic at 6.6. He was given 2 units of pRBCs and a unit of FFP. He required a total of 3 units of blood and his hemoglobin is stable at 9.1 on discharge. His coumadin has been restarted and his INR is 2.0 on discharge. He has been up walking with PT and has been discharged from PT-- he initially was having balance issues but this was improved by discharge. He still does not follow cues or commands due to his dementia. The has noticed that he seems clearer and has not paced as much since admission without taking his psych medications so she has asked that we send him back to [facility] with a trial of no psych medications except for ativan prn. He will be discharged on coumadin with a repeat PT/INR in 3 days and have a repeat CBC in 1 week. I will see him back in my office in 1 week. Labs Laboratory Tests 04/06/22 20:18: 04/07/22 04:30: Red Blood Count 2.06L, Hemoglobin 6.5*L, Hematocrit 21L, Mean Corpuscular Volume 102H, Mean Corpuscular Hemoglobin Concent 31L, Red Cell Distribution Width 17.8H , Prothrombin Time 36.0H, INR Comment 3.6H, Potassium Level 3.4L, Calcium Level 8.0L 04/07/22 05:47: 04/07/22 07:40: Hemoglobin 7.0L, Hematocrit 22L 04/07/22 10:53: 04/07/22 16:43: Glucometer 118H 04/07/22 17:05: Hemoglobin 8.6#L, Hematocrit 26L 04/07/22 20:33: Glucometer 115H 04/08/22 05:06: Red Blood Count 2.74L, Hemoglobin 8.7L, Hematocrit 26L, Red Cell Distribution Width 18.3H, Prothrombin Time 29.7H, INR Comment 2.8H, Creatinine 0.58L, Calcium Level 8.1L 04/08/22 05:56: 04/08/22 08:52: Total Iron Binding Capacity 167L, Ferritin 381.9H 04/08/22 11:31: Glucometer 124H 04/08/22 15:05: 04/08/22 20:48: Glucometer 111H 04/09/22 05:37: 04/09/22 05:50: Red Blood Count 2.86L, Hemoglobin 9.1L, Hematocrit 28L, Red Cell Distribution Width 17.3H, Prothrombin Time 23.2H, INR Comment 2.0H, Calcium Level 8.0L 04/09/22 09:57: Glucometer 120H 04/09/22 13:36: Glucometer 111H 04/09/22 15:14: Glucometer 138H Procedures None. Discharge Physical Examination Allergies: Coded Allergies: Penicillins (Unverified Allergy, Mild, 04/06/22) penicillin G (Verified Allergy, Unknown, 04/06/22) Vitals & I&Os Vital Signs Date Time Temp Pulse Resp B/P (MAP) Pulse Ox O2 Delivery O2 Flow Rate FiO2 04/09/22 15:33 35.7 93 20 131/74 (93) 96 Room Air 04/08/22 23:09 0.00 General Appearance: Alert, No Acute Distress Respiratory: Clear to Auscultation Cardiovascular: Regular Rate Extremities: No Clubbing, No Cyanosis, No Edema Skin: Other (left thigh bruising/right lower leg bruising/some brusing to forearms) Psych/Mental Status: Other (confused) Discharge Home Medications Reviewed and agree with Discharge Medication list on patient's Discharge Instruction sheet Instructions to Patient/Family Please see electronic discharge instructions given to patient. Clinical Quality Measures DVT/VTE Risk/Contraindication: Contraindications-Mechi: Other *list below* Other: ANEMIA ROXIE KIM DO Apr 09, 2022 17:13
[2022-04-09 17:52] VITALS: BP 131/74
[2022-04-09] MEDS ORDERED: warFARin 2 MG (COUMADIN) TAB PO SCH (18:00)
--- NOTE | 2022-04-09 19:28 | Physician Query Clarification ---
Physician Query-General Query to Physician: The medical record reflects the following clinical evidence: Clinical Indicators: Admission H and H, 5.8/18, INR 6.6 decreased to 2.0, H and H improved to 9.1 and 28, after treatment, Right thigh Hematoma, Risk Factor(s): Dementia, Chronic coumadin therapy for MVR, recent falls, Treatment: 3 units reduced RBCs 1 unit of FFP, Coumadin held initially Frequent INR and monitoring of Hematoma to L thigh. Adjustment of coumadin dosage unable to stop due to mechanical valve. 1. Other hemorrhagic disorder d/t intrinsic circulating anticoagulants 2. Other explanation of clinical findings 3. Unable to determine (no explanation for clinical findings) Please clarify and document your clinical opinion in the progress notes and discharge summary including the definitive and/or presumptive diagnosis, (suspected or probable), related to the above clinical findings. Please include clinical findings supporting your diagnosis. Keyla Arana MSN, RN Clinical Biological Science Aide [phone] [email or web address] PHYSICIAN RESPONSE: Based on the clinical findings in the record, please respond to the query above on this document as an addendum. Physician Response: Physician Response 1 If you have questions please contact: Melter Supervisor: Ext: Thank you for your time and cooperation. Clinical Biological Science Aide/Melter Supervisor This is a permanent part of the medical record KEYLA ARANA Apr 09, 2022 19:28 DENIA MCCABE MD Apr 19, 2022 15:33
== END 2022-04-09 17:45 | DRG 813 ==
LOC: EDUNIT# 14:10 → ER 14:12 → ICU 16:05 → 4TH 04-08 14:39
PROVIDERS: ADMIT Family Medicine; ATTEND Family Medicine
DX: D68.32 Hemorrhagic disorder due to extrinsic circulating anticoagulants (principal); D62 Acute posthemorrhagic anemia; F02.81 Dementia in other diseases classified elsewhere, unspecified severity, with behavioral disturbance; R23.3 Spontaneous ecchymoses; T45.515A Adverse effect of anticoagulants, initial encounter; G20 Parkinson's disease; I48.0 Paroxysmal atrial fibrillation; Z66 Do not resuscitate; R29.6 Repeated falls; E78.00 Pure hypercholesterolemia, unspecified; I10 Essential (primary) hypertension; E11.9 Type 2 diabetes mellitus without complications; N40.0 Benign prostatic hyperplasia without lower urinary tract symptoms; F41.9 Anxiety disorder, unspecified; F32.A Depression, unspecified; Z86.16 Personal history of COVID-19; Z88.0 Allergy status to penicillin; Z95.2 Presence of prosthetic heart valve
CPT/HCPCS: 36415; 70450; 73701; 74177; 80048; 80053; 82728; 82947; 83540; 83550; 83735; 85014; 85018; 85025; 85027; 85610; 85730; 86850; 86900; 86901; 86920; 93005; 93306

== ENCOUNTER 2022-10-26 12:14 | Emergency (ER) | payer MEDICARE, MEDICAID ==
[~2022-10-26] VITALS: Ht 178 cm; Wt 89.2 kg
[~2022-10-26 12:14] MED LIST changes: +ACET-93 PO; +DICL20GE TP; +ESCI-2 PO; +METO50TA15 PO; +PROP20TA5 PO; +RISP1TAB94 PO; +SENN8.6T17 PO; +WARF-47 PO; +WRF2.5T PO
[2022-10-26 12:39] LABS: BASOPHILS % (AUTO) 0 % (0-10); EOSINOPHILS # (AUTO) 0.2 10^3/uL (0.0-0.3); EOSINOPHILS % (AUTO) 3 % (0-10); HEMATOCRIT 38 % (40-54); HEMOGLOBIN 13.4 g/dL (13.3-17.7); LYMPHOCYTES # (AUTO) 0.8 10^3/uL (1.0-4.0); LYMPHOCYTES % (AUTO) 12 % (12-44); MEAN CORPUSCULAR HEMOGLOBIN 33 pg (25-34); MEAN CORPUSCULAR HGB CONC 35 g/dL (32-36); MEAN CORPUSCULAR VOLUME 96 fL (80-99); MONOCYTES # (AUTO) 0.4 10^3/uL (0.0-1.0); MONOCYTES % (AUTO) 6 % (0-12); NEUTROPHILS # (AUTO) 5.2 10^3/uL (1.8-7.8); NEUTROPHILS % (AUTO) 78 % (42-75); PLATELET COUNT 169 10^3/uL (130-400); WHITE BLOOD COUNT 6.7 10^3/uL (4.3-11.0)
--- NOTE | 2022-10-26 12:39 | ED Neurological Problem ---
General Chief Complaint: Neurological Problems Stated Complaint: NEURO-LIKE SYMPTOMS Nursing Triage Note: STAFF STATES THEY NOTICED WEAKNESS STARTING ABOUT 1100 THIS A.M., NOT ABLE TO STAND UP, HX OF DEMENTIA. PT STOOD UP OUT OF A WC ON ARRIVAL WITH MINIMAL HELP AND TRANSFERED ON HIS OWN Source: patient Exam Limitations: no limitations History of Present Illness Date Seen by Provider: Oct 26, 2022 Time Seen by Provider: 12:35 Initial Comments To ER with reports of general weakness that started at about 11 AM this morning [facility]. Typically he is up walking around and today he seemed to be leaning to the left side. History of dementia. [facility] staff noted this left-sided weakness but are 3 and, the director of the facility states that he he seems baseline. On warfarin for aortic valve replacement. Timing/Duration: 1-3 hours Severity: moderate Associated Symptoms: denies symptoms Allergies and Home Medications Allergies Coded Allergies: Penicillins (Unverified Allergy, Mild, 04/06/22) penicillin G (Verified Allergy, Unknown, 04/06/22) Patient Home Medication List Home Medication List Reviewed: Yes Acetaminophen (Acetaminophen) 500 Mg Tablet, 500 MG PO TID, (Reported) Entered as Reported by: FRANKY HO on 04/08/22 1603 Lorazepam (Ativan) 0.5 Mg Tablet, 0.5 MG PO BID PRN for ANXIETY, (Reported) Entered as Reported by: RAHUL DONOVAN on 04/09/22 0817 Sennosides (Senna Laxative) 8.6 Mg Tablet, 8.6 MG PO BID, (Reported) Entered as Reported by: FRANKY HO on 04/08/22 1603 Warfarin Sodium (Warfarin Sodium) 2.5 Mg Tablet, 2.5 MG PO 1600 Prescribed by: ROXIE KIM on 04/09/22 1259 Review of Systems Review of Systems Constitutional: see HPI Eyes: No Symptoms Reported Ears, Nose, Mouth, Throat: no symptoms reported Respiratory: no symptoms reported Cardiovascular: no symptoms reported Genitourinary: no symptoms reported Musculoskeletal: no symptoms reported Skin: no symptoms reported Psychiatric/Neurological: No Symptoms Reported Endocrine: No Symptoms Reported (I added I did a PT/INR so what the on a 40 now) Past Jxqyumr-Dirgiq-Qofanz Hx Immunizations Up To Date First/Initial COVID19 Vaccinat: august Second COVID19 Vaccination Cristóbal: july COVID19 Vaccination Date: june Past Medical History Surgery/Hospitalization HX: ARTIFICIAL AORTIC VALVE DEVICE PLACED Surgeries: Yes Cardiac, Testicular, Valve Replacement Respiratory: No Cardiac: Yes (MECHANICAL AORTIC VALVE) Atrial Fibrillation, Chronic Edema/Swelling, High Cholesterol, Hypertension, Valvular Heart Disease Neurological: Yes Dementia, Parkinson's Disease Reproductive Disorders: No Genitourinary: Yes (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 WAS PLACED IN [facility] AFTER HE WAS DISMISSED FROM THE HOSPITAL. PAST SURGICAL HISTORY: -AORTIC VALVE REPLACEMENT WITH MECHANICAL VALVE-CHRONIC COUMADIN USE -RIGHT ORCHIECTOMY 07/[address] NICHOLS. Physical Exam Vital Signs Vital Signs - First Documented 10/26/22 12:24 Temp 37.0 Pulse 92 Resp 18 B/P (MAP) 106/81 (89) Pulse Ox 98 O2 Delivery Room Air Capillary Refill : Less Than 3 Seconds Height, Weight, BMI Height: '" Weight: 228lbs. oz. 103.153310bz; 28.00 BMI Method: General Appearance: WD/WN, no apparent distress, other (Alert, confused. GCS 14. Talkative.) Neck: non-tender, full range of motion Respiratory: no respiratory distress, no accessory muscle use Cardiovascular: regular rate, rhythm, no murmur Gastrointestinal: normal bowel sounds, soft Extremities: normal range of motion, non-tender Neurologic/Psychiatric: alert, normal mood/affect Crainal Nerves: normal hearing, normal speech Motor/Sensory: no motor deficit, no sensory deficit Skin: normal color, warm/dry Stroke Onset of Symptoms Date of Onset of Symptoms: Oct 26, 2022 Time of Symptom Onset: 11:00 Onset of Symptoms: Yes NIH Stroke Scale Assessment Select: Initial Level of Consciousness: 0=Alert (0), Level of Consciousness- Questions: 1=Answers one question (1), LOC Commands: 0=Performs both tasks (0), Gaze: Normal (0), Visual Love: 0=No visual loss (0), Facial Movement (Facial Paresis): 0=Normal symmetrical mnt (0), Motor Function-Arms Right: 0=No drift (0), Motor Function-Arms Left: 0=No drift (0), Motor Function-Legs Right: 0=No drift (0), Motor Function-Legs Left: 0=No drift (0), Limb Ataxia: 0=Absent (0), Sensory: 0=Normal:no loss (0), Best Language: 0=No aphasia (0), Dysarthria: 0=Normal (0), Extinction & Inattention: 0=No abnormality (0), Total: 1 Stroke Thrombolytic Exclusion Age 18 or Over: Yes Acute intenal hemorrhage: No History of CVA: No Uncontrolled Coagulation Defec: No Intracranial Hemorrhage: No Severe Hypertension: No GI or Bleed: No Subarachnoid Hemorrhage: No Intracranial Neoplasm/Aneurysm: No Oral Anticoagulants: Yes Surgery or Trauma: No Puncture of Non-Compressible V: No Recent CPR: No Diabetic Hemorrhagic Retinopat: No Organ Biopsy: No Recent Obstetric Delivery: No Glucose: No Significant Hepatic Dysfunctio: No NIH Stoke Scale >22: No Bacterial Endocarditis: No Pericarditis: No Improving Symptoms: No Platelets: No TPA Contraindication: No Progress/Results/Core Measures Results/Orders Lab Results Laboratory Tests Test 10/26/22 12:30 10/26/22 13:36 Range/Units White Blood Count 6.7 4.3-11.0 10^3/uL Red Blood Count 4.02 L 4.30-5.52 10^6/uL Hemoglobin 13.4 13.3-17.7 g/dL Hematocrit 38 L 40-54 % Mean Corpuscular Volume 96 80-99 fL Mean Corpuscular Hemoglobin 33 25-34 pg Mean Corpuscular Hemoglobin Concent 35 32-36 g/dL Red Cell Distribution Width 12.3 10.0-14.5 % Platelet Count 169 130-400 10^3/uL Mean Platelet Volume 10.0 9.0-12.2 fL Immature Granulocyte % (Auto) 0 % Neutrophils (%) (Auto) 78 H 42-75 % Lymphocytes (%) (Auto) 12 12-44 % Monocytes (%) (Auto) 6 0-12 % Eosinophils (%) (Auto) 3 0-10 % Basophils (%) (Auto) 0 0-10 % Neutrophils # (Auto) 5.2 1.8-7.8 10^3/uL Lymphocytes # (Auto) 0.8 L 1.0-4.0 10^3/uL Monocytes # (Auto) 0.4 0.0-1.0 10^3/uL Eosinophils # (Auto) 0.2 0.0-0.3 10^3/uL Basophils # (Auto) 0.0 0.0-0.1 10^3/uL Immature Granulocyte # (Auto) 0.0 0.0-0.1 10^3/uL Prothrombin Time 19.9 H 12.2-14.7 SEC INR Comment 1.6 H 0.8-1.4 Sodium Level 137 135-145 MMOL/L Potassium Level 4.0 3.6-5.0 MMOL/L Chloride Level 107 98-107 MMOL/L Carbon Dioxide Level 21 21-32 MMOL/L Anion Gap 9 5-14 MMOL/L Blood Urea Nitrogen 20 H 7-18 MG/DL Creatinine 0.76 0.60-1.30 MG/DL Estimat Glomerular Filtration Rate 93 BUN/Creatinine Ratio 26 Glucose Level 87 70-105 MG/DL Calcium Level 9.0 8.5-10.1 MG/DL Corrected Calcium 8.9 8.5-10.1 MG/DL Total Bilirubin 0.8 0.1-1.0 MG/DL Aspartate Amino Transf (AST/SGOT) 30 5-34 U/L Alanine Aminotransferase (ALT/SGPT) 26 0-55 U/L Alkaline Phosphatase 59 40-136 U/L Total Protein 6.8 6.4-8.2 GM/DL Albumin 4.1 3.2-4.5 GM/DL Urine Color YELLOW Urine Clarity CLEAR Urine pH 6.0 5-9 Urine Specific Eldena >=1.030 1.016-1.022 Urine Protein NEGATIVE NEGATIVE Urine Glucose (UA) NEGATIVE NEGATIVE Urine Ketones NEGATIVE NEGATIVE Urine Nitrite NEGATIVE NEGATIVE Urine Bilirubin NEGATIVE NEGATIVE Urine Urobilinogen 0.2 < = 1.0 MG/DL Urine Leukocyte Esterase NEGATIVE NEGATIVE Urine RBC (Auto) 2+ H NEGATIVE Urine RBC 10-25 H /HPF Urine WBC RARE /HPF Urine Crystals NONE /LPF Urine Bacteria NEGATIVE /HPF Urine Casts NONE /LPF Urine Mucus NEGATIVE /LPF Urine Culture Indicated NO My Orders Orders - EDILMA CARTAGENA PHYSICAL SCIENCE PROFESSOR Cbc With Automated Diff (10/26/22 12:34) Comprehensive Metabolic Panel (10/26/22 12:34) Ua Culture If Indicated (10/26/22 12:34) Protime With Inr (10/26/22 12:34) Chest 1 View, Ap/Pa Only (10/26/22 12:34) Ed Iv/Invasive Line Start (10/26/22 12:34) Ct Head Wo (10/26/22 12:34) Enoxaparin Injection (Lovenox Injection) (10/26/22 13:30) Enoxaparin Injection (Lovenox Injection) (10/26/22 13:30) Warfarin Tablet (Coumadin Tablet) (10/26/22 13:30) Ekg Tracing (10/26/22 13:19) Medications Given in ED Current Medications Medications Dose Ordered Sig/Zach Route Start Time Stop Time Status Last Admin Dose Admin Enoxaparin Sodium 30 mg ONCE ONCE SC 10/26/22 13:30 10/26/22 13:31 DC 10/26/22 13:57 30 MG Enoxaparin Sodium 100 mg ONCE ONCE SC 10/26/22 13:30 10/26/22 13:31 DC 10/26/22 13:57 100 MG Warfarin Sodium 3 mg ONCE ONCE PO 10/26/22 13:30 10/26/22 13:31 DC 10/26/22 13:56 3 MG Vital Signs/I&O 10/26/22 10/26/22 12:24 14:09 Temp 37.0 37.0 Pulse 92 92 Resp 18 18 B/P (MAP) 106/81 (89) 106/81 Pulse Ox 98 98 O2 Delivery Room Air Room Air Blood Pressure Mean: 89 Departure Communication (Admissions) Family Conversation At time of discharge patient was able to get himself out of bed and ambulate out of here with Enrikee at his side. NAME: CHARLES JEREZ MED REC#: [id number] PT STATUS: REG ER : 1945 PHYSICIAN: EDILMA CARTAGENA APRN ADMIT DATE: 10/26/22/ER Draft Date of Exam:10/26/22 CT HEAD WO INDICATION: left weakness TECHNIQUE: Routine non contrast-enhanced axial images were obtained from the skull base to the vertex. Auto Exposure Controls were utilized during the CT exam to meet ALARA standards for radiation dose reduction COMPARISON: 04/06/2022. FINDINGS: The ventricles and cortical sulci are diffusely prominent, compatible with age-related volume loss. There are confluent areas of abnormal, low attenuation in the periventricular white matter. This is consistent with chronic small vessel ischemic changes. There is no midline shift or mass-effect. No acute intra-axial hemorrhage is seen. There are no abnormal areas of increased or decreased density to suggest acute hemorrhage or edema. No extra-axial masses or collections are present. The bony calvarium is intact. The visualized paranasal sinuses are unremarkable. The mastoid air cells are clear. IMPRESSION: 1. No acute intracranial abnormality. No CT evidence of mass, acute infarct or intracranial hemorrhage. 2. Chronic small vessel ischemic changes in the deep white matter. Dictated on workstation # [id number] Dict: 10/26/22 1302 Trans: 10/26/22 1306 [id number] Interpreted by: GLADIS SALMERON MD Electronically signed by: Impression Primary Impression: General medical exam Disposition: 01 HOME, SELF-CARE Condition: Stable Departure-Patient Inst. Decision time for Depature: 13:14 Referrals: ROXIE KIM DO (PCP/Family) Primary Care Physician Patient Instructions: General (DC) Add. Discharge Instructions: All discharge instructions reviewed with patient and/or family. Voiced understanding. EDILMA CARTAGENA APRN Oct 26, 2022 12:39
[2022-10-26 13:02] LABS: ALBUMIN 4.1 GM/DL (3.2-4.5)
[2022-10-26 13:03] LABS: INR 1.6 (0.8-1.4); PROTHROMBIN TIME PATIENT 19.9 SEC (12.2-14.7)
[2022-10-26 13:05] LABS: TOTAL PROTEIN 6.8 GM/DL (6.4-8.2)
--- NOTE | 2022-10-26 13:05 | Diagnostic Imaging Report ---
INDICATION: Weakness. Frontal chest obtained at 1:03 p.m. and compared to 03/30/2022. FINDINGS: There is post-sternotomy change with unchanged valve replacement. There is no focal infiltrate or pneumothorax or pleural fluid. IMPRESSION: Postop changes with no acute process in the chest. Dictated by: Dictated on workstation # [id number]
[2022-10-26 13:06] LABS: BILIRUBIN,TOTAL 0.8 MG/DL (0.1-1.0)
--- NOTE | 2022-10-26 13:06 | Diagnostic Imaging Report ---
INDICATION: left weakness TECHNIQUE: Routine non contrast-enhanced axial images were obtained from the skull base to the vertex. Auto Exposure Controls were utilized during the CT exam to meet ALARA standards for radiation dose reduction COMPARISON: 04/06/2022. FINDINGS: The ventricles and cortical sulci are diffusely prominent, compatible with age-related volume loss. There are confluent areas of abnormal, low attenuation in the periventricular white matter. This is consistent with chronic small vessel ischemic changes. There is no midline shift or mass-effect. No acute intra-axial hemorrhage is seen. There are no abnormal areas of increased or decreased density to suggest acute hemorrhage or edema. No extra-axial masses or collections are present. The bony calvarium is intact. The visualized paranasal sinuses are unremarkable. The mastoid air cells are clear. IMPRESSION: 1. No acute intracranial abnormality. No CT evidence of mass, acute infarct or intracranial hemorrhage. 2. Chronic small vessel ischemic changes in the deep white matter. Dictated by: Dictated on workstation # [id number]
[2022-10-26 13:08] LABS: CREATININE SERUM 0.76 MG/DL (0.60-1.30)
[2022-10-26] MEDS ORDERED: ENOXAPARIN 100 MG/1 ML (LOVENOX) SYR SC ONE (13:30)
[2022-10-26] MEDS ORDERED: warFARin 3 MG (COUMADIN) TAB PO ONE (13:30)
[2022-10-26] MEDS ORDERED: ENOXAPARIN INJECTION 30 MG/0.3 ML SYR SC ONE (13:30)
[2022-10-26 13:41] LABS: BILIRUBIN,URINE NEGATIVE (NEGATIVE); CLARITY,URINE CLEAR; COLOR,URINE YELLOW; GLUCOSE, URINE (UA) NEGATIVE (NEGATIVE); KETONES,URINE NEGATIVE (NEGATIVE); LEUKOCYTE ESTERASE ,URINE NEGATIVE (NEGATIVE); NITRITE,URINE NEGATIVE (NEGATIVE); PROTEIN,URINE NEGATIVE (NEGATIVE)
[2022-10-26 13:49] LABS: BACTERIA,URINE NEGATIVE /HPF; WBC,URINE RARE /HPF
[2022-10-26 14:09] VITALS: BP 106/81
== END 2022-10-26 14:09 | disposition home or self-care (01) ==
LOC: EDUNIT# 12:14 → ER 12:16
DX: Z00.00 Encounter for general adult medical examination without abnormal findings (principal); Z95.4 Presence of other heart-valve replacement; Z86.16 Personal history of COVID-19; Z79.01 Long term (current) use of anticoagulants
CPT/HCPCS: 36415; 51701; 70450; 71045; 80053; 81000; 85025; 85610; 93005

== ENCOUNTER 2023-01-07 17:21 | Emergency (ER) | payer MEDICARE, MEDICAID ==
[~2023-01-07] VITALS: Ht 178 cm; Wt 89.2 kg
--- NOTE | 2023-01-07 17:39 | ED Fall/Injury ---
General Chief Complaint: Trauma-Non Activation Stated Complaint: FALL Source: patient, assisted records Exam Limitations: clinical condition History of Present Illness Date Seen by Provider: Jan 07, 2023 Time Seen by Provider: 17:35 Initial Comments 77-year-old male presents to the ER via EMS from [facility] assisted after a fall. senior living staff stated that patient hit his head. States he was walking and he tripped and fell. Patient denies any pain, denies headache. Patient has severe dementia, unable to contribute more to assessment. He is on a blood thinner. Occurred: just prior to arrival Allergies and Home Medications Allergies Coded Allergies: Penicillins (Unverified Allergy, Mild, 04/06/22) penicillin G (Verified Allergy, Unknown, 04/06/22) Patient Home Medication List Home Medication List Reviewed: Yes Acetaminophen (Acetaminophen) 500 Mg Tablet, 500 MG PO TID, (Reported) Entered as Reported by: FRANKY HO on 04/08/22 1603 Lorazepam (Ativan) 0.5 Mg Tablet, 0.5 MG PO BID PRN for ANXIETY, (Reported) Entered as Reported by: RAHUL DONOVAN on 04/09/22 0817 Sennosides (Senna Laxative) 8.6 Mg Tablet, 8.6 MG PO BID, (Reported) Entered as Reported by: FRANKY HO on 04/08/22 1603 Warfarin Sodium (Warfarin Sodium) 2.5 Mg Tablet, 2.5 MG PO 1600 Prescribed by: ROXIE KIM on 04/09/22 1259 Review of Systems Review of Systems Constitutional: see HPI Past Rbvkkio-Kvspbs-Wrskwa Hx Immunizations Up To Date First/Initial COVID19 Vaccinat: june COVID19 Vaccination Cristóbal: july COVID19 Vaccination Date: june Past Medical History Surgery/Hospitalization HX: ARTIFICIAL AORTIC VALVE DEVICE PLACED, DEMENTIA, DEPRESSION, EXTREME ANXIETY Surgeries: Yes Cardiac, Testicular, Valve Replacement Respiratory: No Cardiac: Yes (MECHANICAL AORTIC VALVE) Atrial Fibrillation, Chronic Edema/Swelling, High Cholesterol, Hypertension, Valvular Heart Disease Neurological: Yes Dementia, Parkinson's Disease Reproductive Disorders: No Genitourinary: Yes (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 WAS PLACED IN RETIREMENT AFTER HE WAS DISMISSED FROM THE HOSPITAL. PAST SURGICAL HISTORY: -AORTIC VALVE REPLACEMENT WITH MECHANICAL VALVE-CHRONIC COUMADIN USE -RIGHT ORCHIECTOMY 07/[address] NICHOLS. Physical Exam Vital Signs Vital Signs - First Documented 01/07/23 17:26 Temp 36.4 Pulse 81 Resp 14 B/P (MAP) 172/82 (112) Pulse Ox 95 O2 Delivery Room Air Capillary Refill : Height, Weight, BMI Height: '" Weight: 228lbs. oz. 103.333433lx; 28.00 BMI Method: General Appearance: WD/WN, no apparent distress HEENT: PERRL/EOMI, TMs normal Neck: full range of motion, supple, normal inspection Cardiovascular: regular rate, rhythm, no edema, no gallop, no JVD, no murmur Respiratory: lungs clear, normal breath sounds, no respiratory distress, no accessory muscle use Neurologic/Psychiatric: alert, disoriented x 3 Skin: normal color, warm/dry, other (Hematoma to right forehead) Progress/Results/Core Measures Results/Orders My Orders Orders - MK ORR APRN Ct Head/Cervical Spine Wo (01/07/23 17:31) Vital Signs/I&O 01/07/23 01/07/23 17:26 18:24 Temp 36.4 Pulse 81 80 Resp 14 16 B/P (MAP) 172/82 (112) 165/85 Pulse Ox 95 96 O2 Delivery Room Air Room Air Progress Progress Note #1: Time: 17:40 Progress Note Patient seen and evaluated, resting comfortably, no acute distress. Will order CT head and neck due to head injury and on blood thinners. Progress Note #2: Time: 18:[address] head and neck reviewed. Negative for intracranial bleed or acute fracture. Results discussed with caregiver. Discharge instructions and return precautions provided to caregiver. Departure Impression Primary Impression: Fall Additional Impression: Head injury Disposition: 01 HOME, SELF-CARE Condition: Stable Departure-Patient Inst. Decision time for Depature: 18:11 Referrals: ROXIE KIM DO (PCP/Family) Primary Care Physician Patient Instructions: Minor Head Injury (DC) Add. Discharge Instructions: CT of the head was negative for intracranial bleed, CT of the did not show any fractures. Follow-up with primary care provider. Return for uncontrolled pain, vision changes, recurrent vomiting, abnormal behavior, difficulty walking, or any other new, concerning, or worsening symptoms. All discharge instructions reviewed with patient and/or family. Voiced understanding. MK ORR APRN Jan 07, 2023 17:39
--- NOTE | 2023-01-07 18:00 | Diagnostic Imaging Report ---
PROCEDURE: CT head and CT cervical spine without contrast. TECHNIQUE: Multiple contiguous axial images were obtained through the brain and cervical spine without the use of intravenous contrast. Sagittal and coronal reformations through the cervical spine were then performed. Auto Exposure Controls were utilized during the CT exam to meet ALARA standards for radiation dose reduction. INDICATION: Unwitnessed fall, dementia. COMPARISON: Exam is compared with CT head 10/26/2022. FINDINGS: HEAD: Generalized cerebral cortical atrophy is chronic. There are periventricular white matter small vessel sequelae, chronic. There is no hemorrhage, and there are no acute extra-axial fluid collections. An area of posterior right parietal cortical hypodensity is stable from prior, likely the sequelae of a remote insult. No acute appearing abnormality. Intracranial atherosclerotic vascular calcifications are chronic. No calvarial fracture deformity, hemo-sinus, or pneumocephalus. CERVICAL SPINE: Cervical CT compared to 03/16/2022. Degenerative changes to the discs, endplates, and facets throughout the cervical spine are stable and chronic. No cervical fracture or paravertebral hemorrhage. The alignment is stable. No facet dislocation. The odontoid is intact. Craniocervical relationship is stable. The central skull base appeared intact. Carotid vascular calcifications are chronic. Old deformity to the right first and second ribs is chronic. IMPRESSION: CT HEAD: Stable chronic senescent findings and likely old right parietal cortical ischemia, chronic. No hemorrhage or fracture. CT CERVICAL SPINE: Chronic degenerative change without fracture or traumatic malalignment. Dictated by: Dictated on workstation # [id number]
[2023-01-07 18:24] VITALS: BP 165/85
== END 2023-01-07 18:24 | disposition home or self-care (01) ==
LOC: EDUNIT# 17:21 → ER 17:22
DX: S00.83XA Contusion of other part of head, initial encounter (principal); I48.91 Unspecified atrial fibrillation; Z79.01 Long term (current) use of anticoagulants; W01.198A Fall on same level from slipping, tripping and stumbling with subsequent striking against other object, initial encounter; Y93.01 Activity, walking, marching and hiking; Y92.129 Unspecified place in nursing home as the place of occurrence of the external cause
CPT/HCPCS: 70450; 72125

== ENCOUNTER 2023-03-25 14:18 | Emergency (ER) | payer MEDICARE, MEDICAID ==
--- NOTE | 2023-03-25 14:45 | ED Fall/Injury ---
General Chief Complaint: Trauma-Non Activation Stated Complaint: FALL | FACIAL INJ Nursing Triage Note: PT AMB TO RM 7 WITH CAREGIVER WITH C/O UNWITNESSED FALL SOMETIME THIS AM. PT FOUND ON FLOOR BY STAFF AT 0500. PT APPEARS TO HAVE L EYE BRUISE, AND CHEEK BRUSING Source: patient Exam Limitations: no limitations History of Present Illness Date Seen by Provider: March 25, 2023 Time Seen by Provider: 14:42 Initial Comments Patient is a 77-year-old male with a history of dementia who presents to ED from [place] [facility] for evaluation after a fall. Patient fell around 5:00 this morning. Patient mattress on the floor was moved to the wall patient hit the rail supposedly and fell on the floor. Patient was found sleeping. Patient has some swelling and redness around the left eye. Patient with a history of dementia. Difficulty obtaining history from patient. Patient does take warfarin for heart valve. According to nurse at bedside patient INR has been within normal limits. Patient has been acting his normal self. Did eat this morning. Wanted further evaluation secondary to the facial injury. No evidence of bruising or swelling to the head. Patient moving all extremities. Patient able to ambulate. No bruising to the back, chest or abdomen. No vomiting, diarrhea, change in mental status Allergies and Home Medications Allergies Coded Allergies: Penicillins (Unverified Allergy, Mild, 04/06/22) penicillin G (Verified Allergy, Unknown, 04/06/22) Patient Home Medication List Home Medication List Reviewed: Yes Acetaminophen (Acetaminophen) 500 Mg Tablet, 500 MG PO TID, (Reported) Entered as Reported by: FRANKY HO on 04/08/22 1603 Lorazepam (Ativan) 0.5 Mg Tablet, 0.5 MG PO BID PRN for ANXIETY, (Reported) Entered as Reported by: RAHUL DONOVAN on 04/09/22 0817 Sennosides (Senna Laxative) 8.6 Mg Tablet, 8.6 MG PO BID, (Reported) Entered as Reported by: FRANKY HO on 04/08/22 1603 Warfarin Sodium (Warfarin Sodium) 2.5 Mg Tablet, 2.5 MG PO 1600 Prescribed by: ROXIE KIM on 04/09/22 1259 Review of Systems Review of Systems Constitutional: No chills, No diaphoresis, No fever, No malaise, No weakness Eyes: Denies Blurred Vision, Denies Drainage, Denies Decreased Acuity; Pain; Denies Photophobia; Previous Injury Ears, Nose, Mouth, Throat: denies ear pain, denies ear discharge Respiratory: No cough, No dyspnea on exertion Cardiovascular: No chest pain, No edema Gastrointestinal: No abdominal pain, No diarrhea, No nausea, No vomiting Genitourinary: No decreased output, No discharge Musculoskeletal: No back pain, No joint pain Skin: change in color All Other Systems Reviewed Negative Unless Noted: Yes Past Xafsoam-Ccwbxx-Frvzpr Hx Patient Social History Tobacco Use?: No Use of E-Cig and/or Vaping dev: No Substance use?: No Alcohol Use?: No Pt feels they are or have been: No Immunizations Up To Date First/Initial COVID19 Vaccinat: june COVID19 Vaccination Cristóbal: july COVID19 Vaccination Date: june Past Medical History Surgery/Hospitalization HX: ARTIFICIAL AORTIC VALVE DEVICE PLACED, DEMENTIA, DEPRESSION, EXTREME ANXIETY Surgeries: Yes Cardiac, Testicular, Valve Replacement Respiratory: No Cardiac: Yes (MECHANICAL AORTIC VALVE) Atrial Fibrillation, Chronic Edema/Swelling, High Cholesterol, Hypertension, Valvular Heart Disease Neurological: Yes Dementia, Parkinson's Disease Reproductive Disorders: No Genitourinary: Yes (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 WAS PLACED IN ALF AFTER HE WAS DISMISSED FROM THE HOSPITAL. PAST SURGICAL HISTORY: -AORTIC VALVE REPLACEMENT WITH MECHANICAL VALVE-CHRONIC COUMADIN USE -RIGHT ORCHIECTOMY 07/[address] NICHOLS. Physical Exam Vital Signs Vital Signs - First Documented 03/25/23 14:34 Temp 36.6 Pulse 98 Resp 16 B/P (MAP) 138/54 (82) Pulse Ox 97 O2 Delivery Room Air Capillary Refill : Height, Weight, BMI Height: '" Weight: 228lbs. oz. 103.235734gt; 28.00 BMI Method: General Appearance: WD/WN, no apparent distress HEENT: PERRL/EOMI, normal ENT inspection, TMs normal, other (Mild bruising left periorbit. Extraocular movements intact. Pupils reactive light. 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, no motor/sensory deficits, alert, normal mood/affect, oriented x 3 Skin: normal color, warm/dry Mckean Coma Score Best Eye Response: (4) Open Spontaneously Best Verbal Response: (4) Confused Conversation Best Motor Response: (6) Obeys Commands Mckean Total: 14 Progress/Results/Core Measures Results/Orders My Orders Orders - SUKHDEV BONNER Ct Head/Face/Cervical Wo (03/25/23 14:40) Vital Signs/I&O 03/25/23 03/25/23 14:34 15:40 Temp 36.6 Pulse 98 98 Resp 16 16 B/P (MAP) 138/54 (82) 148/89 Pulse Ox 97 97 O2 Delivery Room Air Room Air Blood Pressure Mean: 82 Departure Communication (PCP) Patient presents ED with facial injury. Reviewed previous ER visits, H&P, lab testing. History of falls. History of aortic valve replacement currently on warfarin, anxiety, depression, dementia. Patient has a contusion to the left orbit. No contusion of the forehead, scalp, tenderness No cervical midline tenderness. No thoracic or lumbar midline tenderness. difficulty obtaining history of patient due to his current mental status. Unwitnessed fall. Concerning for left-sided facial injury. Left periorbit bruising. Extraocular was intact. Pupils reactive light. No evidence of eye trauma. Bruising to the left lateral orbit. patient was found on the floor this morning sleeping. Patient did eat this morning. Staff concern for the bruising. He Has been acting his normal self according to staff at bedside. No evidence of bruising or pain on palpation to the back, chest or abdomen. Able to ambulate. Due to the left-sided facial bruising CT scan of the head, face and cervical neck was ordered with. CT scans were unremarkable. According to nurse patient has had recent INR checked within therapeutic level. Attempted to get a blood draw but patient became agitated and refused. They will follow up with a blood draw. Patient discharged with a steady gait. Return precaution were discussed with nursing staff. Impression Primary Impression: Facial injury Disposition: HOME, SELF-CARE Condition: Stable Departure-Patient Inst. Decision time for Depature: 15:33 Referrals: ROXIE KIM DO (PCP/Family) Primary Care Physician Patient Instructions: Contusion (DC) Add. Discharge Instructions: Continue monitoring symptoms at home. If any worsening symptoms return back to ED All discharge instructions reviewed with patient and/or family. Voiced understanding. SUKHDEV BONNER March 25, 2023 14:45
--- NOTE | 2023-03-25 15:29 | Diagnostic Imaging Report ---
PROCEDURE: CT head, face, and cervical spine without contrast. TECHNIQUE: Multiple contiguous axial images were obtained through the head, neck, and facial bones without the use of intravenous contrast. Sagittal and coronal reformations through the cervical spine and facial bones were also performed. Auto Exposure Controls were utilized during the CT exam to meet ALARA standards for radiation dose reduction. INDICATION: Trauma, headache, neck pain, face pain, left eye bruising. COMPARISON: CT of the head 01/07/2023 FINDINGS: No acute intracranial hemorrhage. Mild chronic small vessel ischemic disease. Moderate global volume loss. No intracranial mass or fluid collection. Scattered calcifications of the intracranial vasculature. The subarachnoid spaces are normal. The sella is normal. The soft tissues are normal. No skull fracture. The paranasal sinuses and mastoids are clear. The nasal bone, septum, globes, orbits, maxilla, zygomatic arch are normal. The mandible is normal. Left preseptal periorbital soft tissue swelling. No post septal edema. The cervical lordosis is reversed. Mild anterolisthesis of C2 on C3. Mild retrolisthesis of C4 on C5 and C5 on C6. Mild multilevel facet arthritis. No acute fracture or dislocation of the cervical spine. No high-density fluid within the spinal canal. No high-grade spinal canal and neural foraminal stenosis. Mild to moderate multilevel spinal canal and neural foraminal narrowing. Bilateral carotid atherosclerosis. Included lung apices are normal. IMPRESSION: No acute intracranial hemorrhage. No large vascular territory jerome-white loss. No intracranial mass, midline shift, or hydrocephalus. No acute fracture or dislocation of the cervical spine. No acute facial fractures. Dictated by: Dictated on workstation # [id number]
[2023-03-25 15:40] VITALS: BP 148/89
== END 2023-03-25 15:42 | disposition home or self-care (01) ==
LOC: EDUNIT# 14:18 → ER 14:20
DX: S00.12XA Contusion of left eyelid and periocular area, initial encounter (principal); Z95.2 Presence of prosthetic heart valve; Z79.01 Long term (current) use of anticoagulants; W18.30XA Fall on same level, unspecified, initial encounter; W22.8XXA Striking against or struck by other objects, initial encounter
CPT/HCPCS: 70450; 70486; 72125

== ENCOUNTER 2023-03-26 10:56 | Emergency (ER) | payer OTHER, MEDICAID ==
[2023-03-26] MEDS ORDERED: ONDANSETRON 4 MG/2 ML (SDV) Z0FRAN IVP ONE (11:30)
--- NOTE | 2023-03-26 11:32 | ED Abdominal Pain ---
General Chief Complaint: Abdominal/GI Problems Stated Complaint: VOMITING | ABD PAIN Nursing Triage Note: PT TO RM 7 BY WC ACCOMPAINED BY ASSISTED STAFF WITH CC OF ABD PAIN AND VOMITING SINCE THIS AM. ASSISTED STAFF REPORTS PT ABD TENDER WHEN PALPATATED. Source of Information: Patient, Caregiver, EMS Exam Limitations: No Limitations History of Present Illness Date Seen by Provider: March 26, 2023 Time Seen by Provider: 11:17 Initial Comments 77-year-old male with severe dementia presents emergency department for locomotion comfortably with her staff. Staff tells me that he was seen here yesterday, evaluated after a fall with facial injury. Work-up was reportedly negative at that time. Morning after breakfast he had a single episode of nonbloody nonbilious emesis. When they palpated his abdomen seem to be tender. He is otherwise acting normally. The patient himself has no complaints. All other systems reviewed and negative except documented per HPI. Voice recognition software was used to help create this chart Allergies and Home Medications Allergies Coded Allergies: Penicillins (Unverified Allergy, Mild, 04/06/22) penicillin G (Verified Allergy, Unknown, 04/06/22) Patient Home Medication List Home Medication List Reviewed: Yes Acetaminophen (Acetaminophen) 500 Mg Tablet, 500 MG PO TID, (Reported) Entered as Reported by: FRANKY HO on 04/08/22 1603 Lorazepam (Ativan) 0.5 Mg Tablet, 0.5 MG PO BID PRN for ANXIETY, (Reported) Entered as Reported by: RAHUL DONOVAN on 04/09/22 0817 Sennosides (Senna Laxative) 8.6 Mg Tablet, 8.6 MG PO BID, (Reported) Entered as Reported by: FRANKY HO on 04/08/22 1603 Warfarin Sodium (Warfarin Sodium) 2.5 Mg Tablet, 2.5 MG PO 1600 Prescribed by: ROXIE KIM on 04/09/22 1259 Review of Systems Review of Systems Constitutional: see HPI Past Abbvkvr-Ztxtrt-Ieijmr Hx Patient Social History Tobacco Use?: No Substance use?: No Alcohol Use?: No Pt feels they are or have been: No Immunizations Up To Date Influenza Vaccine Up-to-Date: Yes; Up-to-Date First/Initial COVID19 Vaccinat: june COVID19 Vaccination Cristóbal: july COVID19 Vaccination Date: june Past Medical History Surgery/Hospitalization HX: ARTIFICIAL AORTIC VALVE DEVICE PLACED, DEMENTIA, DEPRESSION, EXTREME ANXIETY Surgeries: Yes Cardiac, Testicular, Valve Replacement Respiratory: No Cardiac: Yes (MECHANICAL AORTIC VALVE) Atrial Fibrillation, Chronic Edema/Swelling, High Cholesterol, Hypertension, Valvular Heart Disease Neurological: Yes Dementia, Parkinson's Disease Reproductive Disorders: No Genitourinary: Yes (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 WAS PLACED IN ASSISTED AFTER HE WAS DISMISSED FROM THE HOSPITAL. PAST SURGICAL HISTORY: -AORTIC VALVE REPLACEMENT WITH MECHANICAL VALVE-CHRONIC COUMADIN USE -RIGHT ORCHIECTOMY 07/[address] NICHOLS. Physical Exam Vital Signs Vital Signs - First Documented 03/26/23 11:15 Pulse 92 Resp 20 B/P (MAP) 163/97 (119) Pulse Ox 97 O2 Delivery Room Air Capillary Refill : Height/Weight/BMI Height: '" Weight: 228lbs. oz. 103.844323qu; 28.00 BMI Method: General Appearance: WD/WN, no apparent distress HEENT: normal ENT inspection, pharynx normal, other (Slight swelling of the left periorbital region.) Neck: non-tender, full range of motion Respiratory: chest non-tender, lungs clear, normal breath sounds, no respiratory distress, no accessory muscle use Cardiovascular: regular rate, rhythm, no murmur Gastrointestinal: soft, tenderness (Tenderness palpation the epigastric region with voluntary guarding. No rebound tenderness. No mass organomegaly. 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2 fL Immature Granulocyte % (Auto) 0 % Neutrophils (%) (Auto) 74 42-75 % Lymphocytes (%) (Auto) 17 12-44 % Monocytes (%) (Auto) 8 0-12 % Eosinophils (%) (Auto) 1 0-10 % Basophils (%) (Auto) 1 0-10 % Neutrophils # (Auto) 4.0 1.8-7.8 10^3/uL Lymphocytes # (Auto) 0.9 L 1.0-4.0 10^3/uL Monocytes # (Auto) 0.4 0.0-1.0 10^3/uL Eosinophils # (Auto) 0.0 0.0-0.3 10^3/uL Basophils # (Auto) 0.0 0.0-0.1 10^3/uL Immature Granulocyte # (Auto) 0.0 0.0-0.1 10^3/uL Prothrombin Time 25.6 H 12.2-14.7 SEC INR Comment 2.4 H 0.8-1.4 Sodium Level 142 135-145 MMOL/L Potassium Level 4.0 3.6-5.0 MMOL/L Chloride Level 111 H 98-107 MMOL/L Carbon Dioxide Level 24 21-32 MMOL/L Anion Gap 7 5-14 MMOL/L Blood Urea Nitrogen 21 H 7-18 MG/DL Creatinine 0.88 0.60-1.30 MG/DL Estimat Glomerular Filtration Rate 89 BUN/Creatinine Ratio 24 Glucose Level 97 70-105 MG/DL Calcium Level 9.1 8.5-10.1 MG/DL Corrected Calcium 9.3 8.5-10.1 MG/DL Total Bilirubin 0.4 0.1-1.0 MG/DL Aspartate Amino Transf (AST/SGOT) 15 5-34 U/L Alanine Aminotransferase (ALT/SGPT) 11 0-55 U/L Alkaline Phosphatase 45 40-136 U/L Total Protein 6.0 L 6.4-8.2 GM/DL Albumin 3.7 3.2-4.5 GM/DL Lipase 32 8-78 U/L My Orders Orders - DARCY MOURA DO Comprehensive Metabolic Panel (03/26/23 11:19) Chest 1 View, Ap/Pa Only (03/26/23 11:19) Cbc With Automated Diff (03/26/23 11:19) Ct Head Wo (03/26/23 11:19) Lipase (03/26/23 11:19) Ondansetron Injection (Zofran Injectio (03/26/23 11:30) Protime With Inr (03/26/23 11:21) Ct Abdomen/Pelvis W (03/26/23 11:24) Iohexol Injection (Omnipaque 350 Mg/Ml 1 (03/26/23 13:00) Received Contrast (Hold Metformin- Contr (03/26/23 13:00) Ns (Ivpb) (Sodium Chloride 0.9% Ivpb Bag (03/26/23 13:00) Medications Given in ED Vital Signs/I&O 03/26/23 03/26/23 11:15 14:20 Pulse 92 84 Resp 20 20 B/P (MAP) 163/97 (119) 135/92 Pulse Ox 97 100 O2 Delivery Room Air Room Air Blood Pressure Mean: 119 Departure Communication (Admissions) Patient is hemodynamically stable. He is in no obvious discomfort just sitting in the bed but when I palpate his epigastric region he has significant tenderness and shouts. His vital signs are otherwise unremarkable as is his exam. Differential considerations include gastritis, ulcer, duodenitis, bowel obstruction given his episode of vomiting this morning, viral gastrointestinal disorder, musculoskeletal pain. Lab work-up is unremarkable with normal CBC, chemistry. His INR is 2.4. CT abdomen pelvis, CT head are both negative for any acute findings. There is no evidence of acute medical condition at this time. He is discharged home in stable condition Impression Primary Impression: Abdominal pain Qualified Codes: R10.13 - Epigastric pain Disposition: 01 HOME, SELF-CARE Condition: Stable Departure-Patient Inst. Referrals: ROXIE KIM DO (PCP/Family) Primary Care Physician Patient Instructions: Constipation, Adult (DC) Add. Discharge Instructions: Increase his fluids and allow him to rest. Alternate ibuprofen and Tylenol as needed for discomfort. Return to the emergency department for any severe concerns. All discharge instructions reviewed with patient and/or family. Voiced underst anding. DARCY MOURA DO March 26, 2023 11:32
--- NOTE | 2023-03-26 12:18 | Diagnostic Imaging Report ---
INDICATION: Altered mental status, multiple falls. TECHNIQUE: Frontal view of the chest. COMPARISON: 10/26/2022. FINDINGS: There is mild elevation of the right hemidiaphragm. No consolidation is seen. There is no pleural effusion or pneumothorax. The cardiac silhouette is normal in size. Sternotomy wires, post-CABG changes and a valve prosthesis are noted. IMPRESSION: 1. No acute pulmonary abnormality. Dictated by: Dictated on workstation # [id number]
[2023-03-26 12:32] LABS: BASOPHILS % (AUTO) 1 % (0-10); EOSINOPHILS % (AUTO) 1 % (0-10); HEMATOCRIT 38 % (40-54); HEMOGLOBIN 13.5 g/dL (13.3-17.7); LYMPHOCYTES # (AUTO) 0.9 10^3/uL (1.0-4.0); LYMPHOCYTES % (AUTO) 17 % (12-44); MEAN CORPUSCULAR HEMOGLOBIN 34 pg (25-34); MEAN CORPUSCULAR HGB CONC 36 g/dL (32-36); MEAN CORPUSCULAR VOLUME 94 fL (80-99); MEAN PLATELET VOLUME 9.1 fL (9.0-12.2); MONOCYTES # (AUTO) 0.4 10^3/uL (0.0-1.0); MONOCYTES % (AUTO) 8 % (0-12); NEUTROPHILS % (AUTO) 74 % (42-75); PLATELET COUNT 185 10^3/uL (130-400); WHITE BLOOD COUNT 5.5 10^3/uL (4.3-11.0)
[2023-03-26 12:41] LABS: ALBUMIN 3.7 GM/DL (3.2-4.5)
[2023-03-26 12:43] LABS: CALCIUM 9.1 MG/DL (8.5-10.1); INR 2.4 (0.8-1.4); PROTHROMBIN TIME PATIENT 25.6 SEC (12.2-14.7)
[2023-03-26 12:46] LABS: BILIRUBIN,TOTAL 0.4 MG/DL (0.1-1.0)
[2023-03-26 12:48] LABS: CREATININE SERUM 0.88 MG/DL (0.60-1.30)
[2023-03-26] MEDS ORDERED: IOHEXOL 350 MG/ML 100 ML (OMNIPAQUE 350) VIAL IV ONE (13:00)
[2023-03-26] MEDS ORDERED: HOLD METFORMIN - RECEIVED CONTRAST 20 ML VIAL IV SCH (13:00)
[2023-03-26] MEDS ORDERED: NS 100 ML (IVPB) BAG IV ONE (13:00)
--- NOTE | 2023-03-26 13:26 | Diagnostic Imaging Report ---
PROCEDURE: CT head without contrast. TECHNIQUE: Multiple contiguous axial images were obtained through the brain without the use of intravenous contrast. Auto Exposure Controls were utilized during the CT exam to meet ALARA standards for radiation dose reduction. INDICATION: Altered mental status with vomiting. COMPARISON: 03/25/2023 FINDINGS: No hyperdense hemorrhage or space-occupying mass. No hydrocephalus or midline shift. Symmetric prominence of the ventricles and cortical sulci is compatible with age-appropriate atrophy. No isolated lobar atrophy. No territorial loss of lyles-white matter differentiation to indicate acute/subacute infarct. Stable periventricular hypoattenuation indicative of chronic microvascular ischemic change. The mastoid air cells are clear. Paranasal sinuses are normal. No focal osseous abnormality of the calvarium. IMPRESSION: 1. No acute intracranial process. 2. No change from yesterday's exam. Dictated by: Dictated on workstation # [id number]
--- NOTE | 2023-03-26 13:35 | Diagnostic Imaging Report ---
CT ABDOMEN/PELVIS W TECHNIQUE: Multiple contiguous axial images were obtained through the abdomen and pelvis after administration of intravenous contrast. All CT scans use one or more of the following dose optimizing techniques: automated exposure control, MA and/or KvP adjustment based on patient size and exam type or iterative reconstruction. INDICATION: Epigastric pain. COMPARISON: 04/06/2022. FINDINGS: Lower chest: A small amount of atelectasis is present in the lung bases. Peritoneum: No free intraperitoneal air or fluid. Liver and biliary system: A few scattered hypodensities within the liver are stable and compatible with benign process such as cysts. No concerning focal hepatic mass has developed. The portal vein is patent. Spleen and Pancreas: Spleen is normal. The pancreas enhances normally without mass lesion or peripancreatic inflammatory changes. Adrenals: Normal. tract: The kidneys enhance normally without suspicious mass or obstruction. Urinary bladder is distended without wall thickening. Nonobstructing 7 mm stone in the lower pole of the right kidney is stable. Prostate is not enlarged. GI tract: Stomach is partially filled with fluid and air. No bowel obstruction. No pericolonic inflammatory changes. A large bolus of stool is present in the rectosigmoid colon. Normal appendix. Vasculature and Lymph nodes: Normal caliber aorta. No abdominal or pelvic lymphadenopathy. Musculoskeletal: No concerning osseous lesion. Small fat-containing epigastric hernia is unchanged. IMPRESSION: 1. Large burden of stool in the rectosigmoid colon is similar to examination one year prior. Correlation for chronic constipation is suggested. 2. No acute obstructive or inflammatory process. Dictated by: Dictated on workstation # [id number]
[2023-03-26 14:20] VITALS: BP 135/92
== END 2023-03-26 14:19 | disposition home or self-care (01) ==
LOC: EDUNIT# 10:56 → ER 10:57
DX: R10.13 Epigastric pain (principal); R11.10 Vomiting, unspecified
CPT/HCPCS: 36415; 70450; 71045; 74177; 80053; 83690; 85025; 85610

== ENCOUNTER 2023-04-17 14:36 | Emergency (ER) | payer OTHER, MEDICAID ==
[~2023-04-17] VITALS: Ht 167 cm; Wt 77.0 kg
--- NOTE | 2023-04-17 14:45 | ED General ---
General Chief Complaint: Altered Mental Status Stated Complaint: ALTERED MENTAL STATUS History of Present Illness Date Seen by Provider: Apr 17, 2023 Time Seen by Provider: 14:45 Initial Comments 78-year-old male with dementia comes in from the dementia unit. They report that he seems a little more pale and is not quite as talkative and acting his normal. He has no complaints. They would like to have his INR checked since he is on warfarin and make sure he is not anemic. Patient is otherwise at his baseline mentation. Allergies and Home Medications Allergies Coded Allergies: Penicillins (Unverified Allergy, Mild, 04/06/22) penicillin G (Verified Allergy, Unknown, 04/06/22) Patient Home Medication List Home Medication List Reviewed: Yes Acetaminophen (Acetaminophen) 500 Mg Tablet, 500 MG PO TID, (Reported) Entered as Reported by: FRANKY HO on 04/08/22 1603 Lorazepam (Ativan) 0.5 Mg Tablet, 0.5 MG PO BID PRN for ANXIETY, (Reported) Entered as Reported by: RAHUL DONOVAN on 04/09/22 0817 Sennosides (Senna Laxative) 8.6 Mg Tablet, 8.6 MG PO BID, (Reported) Entered as Reported by: FRANKY HO on 04/08/22 1603 Warfarin Sodium (Warfarin Sodium) 2.5 Mg Tablet, 2.5 MG PO 1600 Prescribed by: ROXIE KIM on 04/09/22 1259 Review of Systems Review of Systems Constitutional: see HPI Respiratory: no symptoms reported Cardiovascular: no symptoms reported Gastrointestinal: no symptoms reported Genitourinary: no symptoms reported Musculoskeletal: no symptoms reported Skin: see HPI Psychiatric/Neurological: See HPI Hematologic/Lymphatic: See HPI Past Wfvvkjl-Rmtlpt-Zjlpkg Hx Patient Social History Smoking Status: Unknown if Ever Smoked Substance use?: No Alcohol Use?: No Pt feels they are or have been: No Immunizations Up To Date First/Initial COVID19 Vaccinat: june COVID19 Vaccination Cristóbal: july COVID19 Vaccination Date: june Past Medical History Surgery/Hospitalization HX: ARTIFICIAL AORTIC VALVE DEVICE PLACED, DEMENTIA, DEPRESSION, EXTREME ANXIETY Surgeries: Yes Cardiac, Testicular, Valve Replacement Respiratory: No Cardiac: Yes (MECHANICAL AORTIC VALVE) Atrial Fibrillation, Chronic Edema/Swelling, High Cholesterol, Hypertension, Valvular Heart Disease Neurological: Yes Dementia, Parkinson's Disease Reproductive Disorders: No Genitourinary: Yes (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 WAS PLACED IN SHELTER AFTER HE WAS DISMISSED FROM THE HOSPITAL. PAST SURGICAL HISTORY: -AORTIC VALVE REPLACEMENT WITH MECHANICAL VALVE-CHRONIC COUMADIN USE -RIGHT ORCHIECTOMY 07/[address] NICHOLS. Physical Exam Vital Signs Vital Signs - First Documented 04/17/23 14:38 Temp 36.4 Pulse 87 Resp 16 B/P (MAP) 115/86 (96) Pulse Ox 98 Capillary Refill : Height, Weight, BMI Height: '" Weight: 228lbs. oz. 103.905519wb; BMI Method: General Appearance: No Apparent Distress, WD/WN Neck: Normal Inspection, Non Tender Respiratory: Lungs Clear, Normal Breath Sounds Cardiovascular: Regular Rate, Rhythm Extremity: Normal Capillary Refill, Normal Inspection Neurologic/Psychiatric: Alert, No Motor/Sensory Deficits, Other (pt at baseline mentation ) Skin: Pallor Progress/Results/Core Measures Suspected Sepsis SIRS Temperature: Pulse: Respiratory Rate: Laboratory Tests 04/17/23 14:53: White Blood Count 6.5 Blood Pressure / Mean: Laboratory Tests 04/17/23 14:53: Creatinine 0.84, INR Comment 1.3, Platelet Count 186 Results/Orders Lab Results Laboratory Tests Test 04/17/23 14:53 Range/Units White Blood Count 6.5 4.3-11.0 10^3/uL Red Blood Count 3.88 L 4.30-5.52 10^6/uL Hemoglobin 13.0 L 13.3-17.7 g/dL Hematocrit 38 L 40-54 % Mean Corpuscular Volume 97 80-99 fL Mean Corpuscular Hemoglobin 34 25-34 pg Mean Corpuscular Hemoglobin Concent 35 32-36 g/dL Red Cell Distribution Width 13.0 10.0-14.5 % Platelet Count 186 130-400 10^3/uL Mean Platelet Volume 9.1 9.0-12.2 fL Immature Granulocyte % (Auto) 0 % Neutrophils (%) (Auto) 65 42-75 % Lymphocytes (%) (Auto) 25 12-44 % Monocytes (%) (Auto) 8 0-12 % Eosinophils (%) (Auto) 1 0-10 % Basophils (%) (Auto) 0 0-10 % Neutrophils # (Auto) 4.2 1.8-7.8 X 10^3 Lymphocytes # (Auto) 1.6 1.0-4.0 X 10^3 Monocytes # (Auto) 0.5 0.0-1.0 X 10^3 Eosinophils # (Auto) 0.1 0.0-0.3 10^3/uL Basophils # (Auto) 0.0 0.0-0.1 10^3/uL Immature Granulocyte # (Auto) 0.0 0.0-0.1 10^3/uL Prothrombin Time 16.5 H 12.2-14.7 SEC INR Comment 1.3 0.8-1.4 Activated Partial Thromboplast Time 30 24-35 SEC Sodium Level 138 135-145 MMOL/L Potassium Level 4.0 3.6-5.0 MMOL/L Chloride Level 109 H 98-107 MMOL/L Carbon Dioxide Level 19 L 21-32 MMOL/L Anion Gap 10 5-14 MMOL/L Blood Urea Nitrogen 20 H 7-18 MG/DL Creatinine 0.84 0.60-1.30 MG/DL Estimat Glomerular Filtration Rate 90 BUN/Creatinine Ratio 24 Glucose Level 114 H 70-105 MG/DL Calcium Level 9.1 8.5-10.1 MG/DL My Orders Orders - THOMPSON,KYUNG L DO Basic Metabolic Panel (04/17/23 14:45) Cbc With Automated Diff (04/17/23 14:45) Protime With Inr (04/17/23 14:45) Partial Thromboplastin Time (04/17/23 14:45) Vital Signs/I&O 04/17/23 14:38 Temp 36.4 Pulse 87 Resp 16 B/P (MAP) 115/86 (96) Pulse Ox 98 Capillary Refill : Progress Note : Progress Note Patient's diagnostic these were ordered reviewed and interpreted by me. Patient's hemoglobin was 13. Patient's INR was 1.3. Patient was brought in with concerns for low hemoglobin and elevated INR. Patient near his baseline mentation. He does have dementia and is unable to provide any significant m edical history or complaints. Patient is at increased risk for morbidity and mortality based on his social determinants of health and dementia diagnosis. He is stable and discharged back to the care center. Departure Impression Primary Impression: Dementia Qualified Codes: F03.90 - Unspecified dementia, unspecified severity, without behavioral disturbance, psychotic disturbance, mood disturbance, and anxiety Disposition: 01 HOME, SELF-CARE Condition: Stable Departure-Patient Inst. Referrals: ROXIE KIM DO (PCP/Family) Primary Care Physician Patient Instructions: Dementia (DC) Add. Discharge Instructions: Follow-up with your primary care provider as needed. All discharge instructions reviewed with patient and/or family. Voiced understanding. KYUNG THOMPSON DO Apr 17, 2023 14:45
[2023-04-17 15:01] LABS: BASOPHILS % (AUTO) 0 % (0-10); EOSINOPHILS # (AUTO) 0.1 10^3/uL (0.0-0.3); EOSINOPHILS % (AUTO) 1 % (0-10); HEMATOCRIT 38 % (40-54); LYMPHOCYTES # (AUTO) 1.6 X 10^3 (1.0-4.0); LYMPHOCYTES % (AUTO) 25 % (12-44); MEAN CORPUSCULAR HEMOGLOBIN 34 pg (25-34); MEAN CORPUSCULAR HGB CONC 35 g/dL (32-36); MEAN CORPUSCULAR VOLUME 97 fL (80-99); MEAN PLATELET VOLUME 9.1 fL (9.0-12.2); MONOCYTES # (AUTO) 0.5 X 10^3 (0.0-1.0); MONOCYTES % (AUTO) 8 % (0-12); NEUTROPHILS # (AUTO) 4.2 X 10^3 (1.8-7.8); NEUTROPHILS % (AUTO) 65 % (42-75); PLATELET COUNT 186 10^3/uL (130-400); WHITE BLOOD COUNT 6.5 10^3/uL (4.3-11.0)
[2023-04-17 15:08] LABS: CALCIUM 9.1 MG/DL (8.5-10.1)
[2023-04-17 15:11] LABS: INR 1.3 (0.8-1.4); PROTHROMBIN TIME PATIENT 16.5 SEC (12.2-14.7)
[2023-04-17 15:13] LABS: CREATININE SERUM 0.84 MG/DL (0.60-1.30)
[2023-04-17 15:40] VITALS: BP 115/86
== END 2023-04-17 15:40 | disposition home or self-care (01) ==
LOC: EDUNIT# 14:36 → ER 14:37
DX: G20 Parkinson's disease (principal); F02.84 Dementia in other diseases classified elsewhere, unspecified severity, with anxiety
CPT/HCPCS: 36415; 80048; 85025; 85610; 85730

== ENCOUNTER 2023-06-11 09:46 | Emergency (ER) | payer OTHER, MEDICAID ==
[~2023-06-11] VITALS: Ht 177 cm; Wt 75.0 kg
--- NOTE | 2023-06-11 10:29 | ED Fall/Injury ---
General Chief Complaint: Trauma-Non Activation Stated Complaint: FALL Nursing Triage Note: PT TO [facility] BY [facility] WITH CC OF A FALL YESTERDAY, LAC TO RT ELBOW BLEEDING THROUGH DRESSING THIS MORNING, HEMATOMA ABOVE RT EYE, PT PURRS AND "SPEAKS IN TONGUES" ACCORDING TO STAFF, WILL ANSWER SOME QUESTIONS BUT THIS IS HIS NORMAL. Source: patient, EMS, alf records, caregiver Exam Limitations: other (Congnitive impairment) History of Present Illness Date Seen by Provider: Jun 11, 2023 Time Seen by Provider: 09:59 Initial Comments This Pleasant 78-year-old Gentleman Presents to the Emergency Room Via EMS from [facility] with concern about possible head injury. He was found on the floor in another resident's room yesterday with a small shanthi on his forehead generating suspicion for head injury. He is anticoagulated on warfarin for stroke prophylaxis and A-fib and artificial aortic valve. Staff who accompanies patient also reports that he has been a little unsteady on his feet recently. He has a large superficial skin tear on his right elbow as well. He has been ambulatory after the fall and behavior has been otherwise unremarkable. Cognition is at baseline per staff. He denies pain for EMS and for me. Allergies and Home Medications Allergies Coded Allergies: Penicillins (Unverified Allergy, Mild, 04/06/22) penicillin G (Verified Allergy, Unknown, 04/06/22) Patient Home Medication List Home Medication List Reviewed: Yes Acetaminophen (Acetaminophen) 500 Mg Tablet, 500 MG PO TID, (Reported) Entered as Reported by: FRANKY HO on 04/08/22 1603 Lorazepam (Ativan) 0.5 Mg Tablet, 0.5 MG PO BID PRN for ANXIETY, (Reported) Entered as Reported by: RAHUL DONOVAN on 04/09/22 0817 Sennosides (Senna Laxative) 8.6 Mg Tablet, 8.6 MG PO BID, (Reported) Entered as Reported by: FRANKY HO on 04/08/22 1603 Warfarin Sodium (Warfarin Sodium) 2.5 Mg Tablet, 2.5 MG PO 1600 Prescribed by: ROXIE KIM on 04/09/22 1259 Review of Systems Review of Systems Constitutional: see HPI Eyes: No Symptoms Reported Ears, Nose, Mouth, Throat: no symptoms reported Respiratory: no symptoms reported Cardiovascular: no symptoms reported Gastrointestinal: no symptoms reported Genitourinary: no symptoms reported Musculoskeletal: see HPI Skin: see HPI Psychiatric/Neurological: See HPI Past Nvhthqv-Xzyfvv-Wtsbnq Hx Patient Social History Tobacco Use?: No Substance use?: No Alcohol Use?: No Immunizations Up To Date First/Initial COVID19 Vaccinat: june COVID19 Vaccination Cristóbal: july COVID19 Vaccination Date: june Past Medical History Surgery/Hospitalization HX: ARTIFICIAL AORTIC VALVE DEVICE PLACED, DEMENTIA, DEPRESSION, EXTREME ANXIETY, A FIB Surgeries: Yes Cardiac, Testicular, Valve Replacement Respiratory: No Cardiac: Yes (MECHANICAL AORTIC VALVE) Atrial Fibrillation, Chronic Edema/Swelling, High Cholesterol, Hypertension, Valvular Heart Disease Neurological: Yes Dementia, Parkinson's Disease Reproductive Disorders: No Genitourinary: Yes (BENIGN RIGHT TESTICULAR MASS/S-P ORCHIECTOMY) Benign Prostatic Hyperpl, Prostate Problems Gastrointestinal: No Musculoskeletal: No Endocrine: No HEENT: No Cancer: No Psychosocial: Yes (DEMENTIA) Anxiety, Depression Integumentary: No Blood Disorders: No Family Medical History No Pertinent Family Hx 10/2021--HOSPITALIZED FOR COVID-19 PNEUMONIA/RESPIRATORY FAILURE. WAS PLACED IN SENIOR CARE AFTER HE WAS DISMISSED FROM THE HOSPITAL. PAST SURGICAL HISTORY: -AORTIC VALVE REPLACEMENT WITH MECHANICAL VALVE-CHRONIC COUMADIN USE -RIGHT ORCHIECTOMY 07/[address] NICHOLS. Physical Exam Vital Signs Vital Signs - First Documented 06/11/23 09:51 Temp 36.9 Pulse 85 Resp 18 B/P (MAP) 130/94 (106) Pulse Ox 96 O2 Delivery Room Air Capillary Refill : Less Than 3 Seconds Height, Weight, BMI Height: '" Weight: 228lbs. oz. 103.233100un; 23.00 BMI Method: General Appearance: WD/WN, no apparent distress HEENT: PERRL/EOMI, normal ENT inspection, other (small contusion on right forehead) Neck: non-tender, normal inspection Cardiovascular: regular rate, rhythm, no edema, no murmur Respiratory: lungs clear, normal breath sounds, no respiratory distress Gastrointestinal: non tender, soft Extremities: non-tender, normal inspection, no pedal edema, other (no pain with hip rotation. 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 Cognition and behavior at baseline per caregiver) Skin: normal color, warm/dry Holly Coma Score Best Eye Response: (4) Open Spontaneously Best Verbal Response: (5) Oriented (to baseline) Best Motor Response: (6) Obeys Commands Holly Total: 15 Progress/Results/Core Measures Results/Orders Lab Results Laboratory Tests Test 06/11/23 11:00 06/11/23 11:50 Range/Units White Blood Count 3.8 L 4.3-11.0 10^3/uL Red Blood Count 3.70 L 4.30-5.52 10^6/uL Hemoglobin 12.5 L 13.3-17.7 g/dL Hematocrit 36 L 40-54 % Mean Corpuscular Volume 96 80-99 fL Mean Corpuscular Hemoglobin 34 25-34 pg Mean Corpuscular Hemoglobin Concent 35 32-36 g/dL Red Cell Distribution Width 12.2 10.0-14.5 % Platelet Count 157 130-400 10^3/uL Mean Platelet Volume 9.2 9.0-12.2 fL Immature Granulocyte % (Auto) 0 % Neutrophils (%) (Auto) 62 42-75 % Lymphocytes (%) (Auto) 26 12-44 % Monocytes (%) (Auto) 10 0-12 % Eosinophils (%) (Auto) 2 0-10 % Basophils (%) (Auto) 1 0-10 % Neutrophils # (Auto) 2.3 1.8-7.8 10^3/uL Lymphocytes # (Auto) 1.0 1.0-4.0 10^3/uL Monocytes # (Auto) 0.4 0.0-1.0 10^3/uL Eosinophils # (Auto) 0.1 0.0-0.3 10^3/uL Basophils # (Auto) 0.0 0.0-0.1 10^3/uL Immature Granulocyte # (Auto) 0.0 0.0-0.1 10^3/uL Prothrombin Time 22.7 H 12.2-14.7 SEC INR Comment 2.0 H 0.8-1.4 Sodium Level 141 135-145 MMOL/L Potassium Level 3.8 3.6-5.0 MMOL/L Chloride Level 110 H 98-107 MMOL/L Carbon Dioxide Level 24 21-32 MMOL/L Anion Gap 7 5-14 MMOL/L Blood Urea Nitrogen 14 7-18 MG/DL Creatinine 0.83 0.60-1.30 MG/DL Estimat Glomerular Filtration Rate 90 BUN/Creatinine Ratio 17 Glucose Level 103 70-105 MG/DL Calcium Level 8.6 8.5-10.1 MG/DL Magnesium Level 2.0 1.6-2.4 MG/DL Urine Color YELLOW Urine Clarity CLEAR Urine pH 7.0 5-9 Urine Specific [place] 1.015 L 1.016-1.022 Urine Protein NEGATIVE NEGATIVE Urine Glucose (UA) NEGATIVE NEGATIVE Urine Ketones NEGATIVE NEGATIVE Urine Nitrite NEGATIVE NEGATIVE Urine Bilirubin NEGATIVE NEGATIVE Urine Urobilinogen 2.0 < = 1.0 MG/DL Urine Leukocyte Esterase NEGATIVE NEGATIVE Urine RBC (Auto) TRACE-I H NEGATIVE Urine RBC RARE /HPF Urine WBC RARE /HPF Urine Squamous Epithelial Cells RARE /HPF Urine Crystals PRESENT H /LPF Urine Calcium Oxalate Crystals RARE H /LPF Urine Bacteria TRACE /HPF Urine Casts NONE /LPF Urine Mucus SMALL H /LPF Urine Culture Indicated NO My Orders Orders - NALINI FISHER MD Ct Head/Cervical Spine Wo (06/11/23 10:00) Ed Iv/Invasive Line Start (06/11/23 10:00) Basic Metabolic Panel (06/11/23 10:00) Cbc With Automated Diff (06/11/23 10:00) Magnesium (06/11/23 10:00) Ua Culture If Indicated (06/11/23 10:00) Protime With Inr (06/11/23 10:00) Elbow, Right, 3 Views (06/11/23 10:06) Dipht/Pertuss(Acell)/Tet Adult (Dipht/Pe (06/11/23 12:45) Vital Signs/I&O 06/11/23 06/11/23 09:51 13:18 Temp 36.9 36.9 Pulse 85 80 Resp 18 18 B/P (MAP) 130/94 (106) 137/69 Pulse Ox 96 96 O2 Delivery Room Air Room Air Blood Pressure Mean: 106 Progress Progress Note : Progress Note CT of head and C-spine obtained. Report reviewed. No serious injuries were identified. Basic labs were obtained and interpreted by me. CBC demonstrated minimal decrease in WBC and hemoglobin. No clinical abnormalities appreciated. Chemistry studies and urinalysis were clinically unremarkable by my interpretation. Skin tear was cleaned and dressed with antibiotic ointment and nonstick dressing. INR was 2.0 consistent with his warfarin therapy. See discharge instructions for further discussion. Diagnostic Imaging Diagonstic Imaging: CT Plain Films/CT/US/NM/MRI: c-spine, head Comments NAME: RONNIE JEREZ [facility] REC#: [id number] PT STATUS: DEP ER : 1945 PHYSICIAN: NALINI FISHER MD ADMIT DATE: 06/11/23/ER Signed Date of Exam:06/11/23 CT HEAD/CERVICAL SPINE WO PROCEDURE: CT head and CT cervical spine without contrast. TECHNIQUE: Multiple contiguous axial images were obtained through the brain and cervical spine without the use of intravenous contrast. Sagittal and coronal reformations through the cervical spine were then performed. Auto Exposure Controls were utilized during the CT exam to meet ALARA standards for radiation dose reduction. INDICATION: Head injury. Trauma. Fall. COMPARISON: CT head and cervical spine 03/25/2023. FINDINGS: CT HEAD: Moderate to advanced generalized parenchymal volume loss. No intracranial hemorrhage, mass effect, hydrocephalus or extra-axial fluid collections. No CT evidence of a territorial infarction. Osseous structures are intact. Visualized paranasal sinuses and mastoids are unremarkable. CT CERVICAL SPINE: Stable alignment. Vertebral body heights preserved. No fractures. Moderate to severe degenerative endplate changes. No high-grade spinal canal stenosis is evident by CT. Visualized paravertebral soft tissues are unremarkable. Lung apices are clear. IMPRESSION: No acute intracranial or cervical spine CT findings. Stable chronic findings as above. Dictated by: Dictated on workstation # [id number] Dict: 06/11/23 1037 Trans: 06/11/23 1700 [facility] [id number] Interpreted by: RONNIE CARLSON MD Electronically signed by: RONNIE CARLSON MD 06/11/23 1700 Diagonstic Imaging: Xray Plain Films/CT/US/NM/MRI: elbow Comments NAME: RONNIE JEREZ [facility] REC#: [id number] PT STATUS: REG ER : 1945 PHYSICIAN: NALINI FISHER MD ADMIT DATE: 06/11/23/ER Signed Date of Exam:06/11/23 ELBOW, RIGHT, 3 VIEWS INDICATION: Fall with right elbow pain. TECHNIQUE: AP, oblique, and lateral views of the right elbow are obtained. FINDINGS: No fracture or acute bony abnormality is seen. There is mild degenerative change in the right elbow. IMPRESSION: No acute abnormality. Dictated by: Dictated on workstation # [id number] Dict: 06/11/23 1050 Trans: 06/11/23 1121 [id number] [id number] Interpreted by: TONE BORJAS MD Electronically signed by: TONE BORJAS MD 06/11/23 1121 Departure Impression Primary Impression: Fall on same level Qualified Codes: W18.30XA - Fall on same level, unspecified, initial encounter Additional Impressions: Skin tear Anticoagulated Forehead contusion Qualified Codes: S00.83XA - Contusion of other part of head, initial encounter Disposition: 01 HOME, SELF-CARE Condition: Stable Departure-Patient Inst. Decision time for Depature: 12:52 Referrals: ROXIE KIM DO (PCP/Family) Primary Care Physician Patient Instructions: Preventing falls in adults Add. Discharge Instructions: No serious injuries were identified on CT imaging or x-rays of the elbow. INR was therapeutic at 2.0. No other significant abnormalities were found in the labs. You may apply a clean nonstick dressing to the skin tears until they stop draining. Antibiotic ointment is a reasonable option to provide nonstick effect. Return to care if there are any other worsening problems or concerns. Ronnie received a tetanus booster with pertussis booster today. All discharge instructions reviewed with patient and/or family. Voiced understanding. Copy Copies To 1: ROXIE KIM JOSHUA T MD Jun 11, 2023 10:29
--- NOTE | 2023-06-11 10:46 | Diagnostic Imaging Report ---
PROCEDURE: CT head and CT cervical spine without contrast. TECHNIQUE: Multiple contiguous axial images were obtained through the brain and cervical spine without the use of intravenous contrast. Sagittal and coronal reformations through the cervical spine were then performed. Auto Exposure Controls were utilized during the CT exam to meet ALARA standards for radiation dose reduction. INDICATION: Head injury. Trauma. Fall. COMPARISON: CT head and cervical spine 03/25/2023. FINDINGS: CT HEAD: Moderate to advanced generalized parenchymal volume loss. No intracranial hemorrhage, mass effect, hydrocephalus or extra-axial fluid collections. No CT evidence of a territorial infarction. Osseous structures are intact. Visualized paranasal sinuses and mastoids are unremarkable. CT CERVICAL SPINE: Stable alignment. Vertebral body heights preserved. No fractures. Moderate to severe degenerative endplate changes. No high-grade spinal canal stenosis is evident by CT. Visualized paravertebral soft tissues are unremarkable. Lung apices are clear. IMPRESSION: No acute intracranial or cervical spine CT findings. Stable chronic findings as above. Dictated by: Dictated on workstation # [id number]
--- NOTE | 2023-06-11 10:57 | Diagnostic Imaging Report ---
INDICATION: Fall with right elbow pain. TECHNIQUE: AP, oblique, and lateral views of the right elbow are obtained. FINDINGS: No fracture or acute bony abnormality is seen. There is mild degenerative change in the right elbow. IMPRESSION: No acute abnormality. Dictated by: Dictated on workstation # [id number]
[2023-06-11 11:07] LABS: BASOPHILS % (AUTO) 1 % (0-10); EOSINOPHILS # (AUTO) 0.1 10^3/uL (0.0-0.3); EOSINOPHILS % (AUTO) 2 % (0-10); HEMATOCRIT 36 % (40-54); HEMOGLOBIN 12.5 g/dL (13.3-17.7); LYMPHOCYTES % (AUTO) 26 % (12-44); MEAN CORPUSCULAR HEMOGLOBIN 34 pg (25-34); MEAN CORPUSCULAR HGB CONC 35 g/dL (32-36); MEAN CORPUSCULAR VOLUME 96 fL (80-99); MEAN PLATELET VOLUME 9.2 fL (9.0-12.2); MONOCYTES # (AUTO) 0.4 10^3/uL (0.0-1.0); MONOCYTES % (AUTO) 10 % (0-12); NEUTROPHILS # (AUTO) 2.3 10^3/uL (1.8-7.8); NEUTROPHILS % (AUTO) 62 % (42-75); PLATELET COUNT 157 10^3/uL (130-400); WHITE BLOOD COUNT 3.8 10^3/uL (4.3-11.0)
[2023-06-11 11:17] LABS: PROTHROMBIN TIME PATIENT 22.7 SEC (12.2-14.7)
[2023-06-11 11:18] LABS: POTASSIUM 3.8 MMOL/L (3.6-5.0)
[2023-06-11 11:19] LABS: CALCIUM 8.6 MG/DL (8.5-10.1)
[2023-06-11 11:24] LABS: CREATININE SERUM 0.83 MG/DL (0.60-1.30)
[2023-06-11 12:06] LABS: BILIRUBIN,URINE NEGATIVE (NEGATIVE); CLARITY,URINE CLEAR; COLOR,URINE YELLOW; GLUCOSE, URINE (UA) NEGATIVE (NEGATIVE); KETONES,URINE NEGATIVE (NEGATIVE); LEUKOCYTE ESTERASE ,URINE NEGATIVE (NEGATIVE); NITRITE,URINE NEGATIVE (NEGATIVE); PROTEIN,URINE NEGATIVE (NEGATIVE)
[2023-06-11 12:18] LABS: BACTERIA,URINE TRACE /HPF; CALCIUM OXALATE CRYSTALS,UR RARE /LPF; RBC,URINE RARE /HPF; SQUAMOUS EPITHELIAL CELL,UR RARE /HPF; WBC,URINE RARE /HPF
[2023-06-11] MEDS ORDERED: Tetanus/Diphtheria/Pertussis (Acell) ADULT Vaccine 0.5 ML IM ONE (12:45)
[2023-06-11 13:18] VITALS: BP 137/69
== END 2023-06-11 13:18 | disposition home or self-care (01) ==
LOC: EDUNIT# 09:46 → ER 09:47
DX: S51.011A Laceration without foreign body of right elbow, initial encounter (principal); S00.83XA Contusion of other part of head, initial encounter; I48.91 Unspecified atrial fibrillation; I63.9 Cerebral infarction, unspecified; Z86.16 Personal history of COVID-19; Z79.01 Long term (current) use of anticoagulants; W18.30XA Fall on same level, unspecified, initial encounter; Y92.009 Unspecified place in unspecified non-institutional (private) residence as the place of occurrence of the external cause
CPT/HCPCS: 36415; 51701; 70450; 72125; 73080; 80048; 81000; 83735; 85025; 85610; 90715

== ENCOUNTER 2023-08-11 17:31 | Emergency (ER) | payer OTHER, MEDICAID ==
[~2023-08-11] VITALS: Ht 175 cm; Wt 75.0 kg
--- NOTE | 2023-08-11 18:20 | Diagnostic Imaging Report ---
CLINICAL INDICATION: Patient is status post fall with laceration to back of head. Patient is on Coumadin. EXAM: Axial CT scan of the brain performed without IV contrast with sagittal and coronal reformatted images. Auto Exposure Controls were utilized during the CT exam to meet ALARA standards for radiation dose reduction. COMPARISON: CT scan of the head and cervical spine without contrast dated 06/11/2023. FINDINGS: There is no evidence of acute cerebral infarct, intracranial hemorrhage, or gross mass effect. Again seen are diffuse brain parenchymal volume loss, chronic small vessel ischemic disease, and leukoaraiosis. There is normal lyles-white matter distinction. There is no significant midline shift or herniation. There is no evidence of hydrocephalus. The basal cisterns are unremarkable. There is a small area of extracranial soft tissue swelling and laceration involving the anterior right of midline top of the head region. There is no skull fracture. Skull, extracranial soft tissue, and orbits are unremarkable. There is a small mucus retention cyst involving the sphenoid sinus. The temporal bones show no significant abnormality. IMPRESSION: There is no interval evidence of an acute intracranial process. There is no skull fracture. Dictated by: Dictated on workstation # [id number]
--- NOTE | 2023-08-11 18:35 | ED Fall/Injury ---
General Chief Complaint: Trauma-Non Activation Stated Complaint: FALL Nursing Triage Note: PT TO ED 5 PER EMS FOR C/O FALL W/ LACERATION TO SC[employer]P [employer]. PER EMS, PT WAS "WALKING AROUND COMFORT CARE WHEN HE FELL". FALL NOT WITNESSED, UNK LOC. PT UNABLE TO REPORT ANY C/O TO STAFF DUE TO "COMMUNICATION DEFICIT". AT BEDSIDE, REPORTS PT HAS BEEN "SHUFFLING" RECENTLY. Source: patient Exam Limitations: clinical condition History of Present Illness Date Seen by Provider: Aug 11, 2023 Time Seen by Provider: 17:55 Initial Comments Here from intermediate where he apparently fell and it was unwitnessed. Does have advanced dementia. Does have small laceration to the top of the head with bleeding controlled. No report of loss of consciousness although not witnessed. He has had significant decline in communication over time and he mumbles but does not speak words which is his baseline. No report of other injury. Patient is on warfarin. Occurred: this evening (Approximately 30 minutes prior to arrival) Severity: moderate Injuries/Pain Location: head Context: unknown Loss of Consciousness: unsure Allergies and Home Medications Allergies Coded Allergies: Penicillins (Unverified Allergy, Mild, 04/06/22) penicillin G (Verified Allergy, Unknown, 04/06/22) Patient Home Medication List Home Medication List Reviewed: Yes Acetaminophen (Acetaminophen) 500 Mg Tablet, 500 MG PO TID, (Reported) Entered as Reported by: FRANKY HO on 04/08/22 1603 Lorazepam (Ativan) 0.5 Mg Tablet, 0.5 MG PO BID PRN for ANXIETY, (Reported) Entered as Reported by: RAHUL DONOVAN on 04/09/22 0817 Sennosides (Senna Laxative) 8.6 Mg Tablet, 8.6 MG PO BID, (Reported) Entered as Reported by: FRANKY HO on 04/08/22 1603 Warfarin Sodium (Warfarin Sodium) 2.5 Mg Tablet, 2.5 MG PO 1600 Prescribed by: ROXIE KIM on 04/09/22 1259 Review of Systems Review of Systems Constitutional: see HPI Skin: lesions Unable to obtain meaningful review of systems due to patient's advanced dementia and communication deficit Past Cpfarbp-Rutlfa-Ywlgxn Hx Patient Social History Tobacco Use?: No Use of E-Cig and/or Vaping dev: No Substance use?: No Alcohol Use?: No Pt feels they are or have been: No Immunizations Up To Date First/Initial COVID19 Vaccinat: june COVID19 Vaccination Cristóbal: july COVID19 Vaccination Date: june Past Medical History Surgery/Hospitalization HX: ARTIFICIAL AORTIC VALVE DEVICE PLACED, DEMENTIA, DEPRESSION, EXTREME ANXIETY, A FIB Surgeries: Yes Cardiac, Testicular, Valve Replacement Respiratory: No Cardiac: Yes (MECHANICAL AORTIC VALVE) Atrial Fibrillation, Chronic Edema/Swelling, High Cholesterol, Hypertension, Valvular Heart Disease Neurological: Yes Dementia, Parkinson's Disease Reproductive Disorders: No Genitourinary: Yes (BENIGN RIGHT TESTICULAR MASS/S-P ORCHIECTOMY) Benign Prostatic Hyperpl, Prostate Problems Gastrointestinal: No Musculoskeletal: No Endocrine: No HEENT: No Cancer: No Psychosocial: Yes (DEMENTIA) Anxiety, Depression Integumentary: No Blood Disorders: No Family Medical History Reviewed Nursing Family Hx No Pertinent Family Hx 10/2021--HOSPITALIZED FOR COVID-19 PNEUMONIA/RESPIRATORY FAILURE. WAS PLACED IN INTERMEDIATE AFTER HE WAS DISMISSED FROM THE HOSPITAL. PAST SURGICAL HISTORY: -AORTIC VALVE REPLACEMENT WITH MECHANICAL VALVE-CHRONIC COUMADIN USE -RIGHT ORCHIECTOMY 07/[address] NICHOLS. Physical Exam Vital Signs Vital Signs - First Documented 08/11/23 17:34 Temp 36.7 Pulse 84 Resp 16 B/P (MAP) 132/63 (86) Pulse Ox 95 O2 Delivery Room Air Capillary Refill : Less Than 3 Seconds Height, Weight, BMI Height: '" Weight: 228lbs. oz. 103.285075ih; 24.00 BMI Method: General Appearance: WD/WN, no apparent distress HEENT: PERRL/EOMI, pharynx normal Neck: non-tender, full range of motion, supple, normal inspection Cardiovascular: regular rate, rhythm, no murmur Respiratory: lungs clear, normal breath sounds Gastrointestinal: non tender, soft Extremities: pelvis stable, other (Tenderness area of right hip and with internal and external rotation of right leg) Neurologic/Psychiatric: alert, normal mood/affect, oriented x 3 Skin: warm/dry, other (2 cm laceration to the scalp right of midline at the top of head with bleeding controlled) Holly Coma Score Best Eye Response: (4) Open Spontaneously Best Verbal Response: (2) Incomprehsible Sounds (Baseline) Best Motor Response: (5) Localizes to Pain Procedures/Interventions Wound Location: Scalp Other Wound Location Top of scalp right of midline Wound Length (cm): 3 Wound's Depth, Shape: superficial Wound Explored: contaminated Betadine Prep?: Yes Anesthesia: Lidocaine w/ Epi (Topical) Volume Anesthetic (ccs): 3 Wound Debrided: minimal Staple Repair: Stapler 35W Number of Sutures: 3 Layer Closure?: 1 Number Deep Layer Sutures: 0 Progress Wound cleaned with sterile water and gauze a couple times. We used topical LET for anesthetizing wound. I was able to approximate the wound with just 3 jermaine. Covered with antibiotic ointment and we will leave open. Bleeding is controlled. Remainder of scalp evaluated for other injuries and none noted. Tolerated procedure well with no complications. Progress/Results/Core Measures Results/Orders My Orders Orders - AMY CASTILLO MD Pelvis With Right Hip 2-3views (08/11/23 18:28) Let Solution (Let Solution) (08/11/23 18:30) Let Gel (Let Gel) (08/11/23 18:37) Medications Given in ED Current Medications Medications Dose Ordered Sig/Zach Route Start Time Stop Time Status Last Admin Dose Admin Tetracaine/ Epinephrine/ Lidocaine 3 ml STK-MED ONCE .ROUTE 08/11/23 18:37 08/11/23 18:41 DC 08/11/23 18:41 3 ML Vital Signs/I&O 08/11/23 17:34 Temp 36.7 Pulse 84 Resp 16 B/P (MAP) 132/63 (86) Pulse Ox 95 O2 Delivery Room Air Blood Pressure Mean: 86 Progress Progress Note : Progress Note Seen and evaluated. CT head ordered due to patient being on warfarin with head injury. This was done rapidly and early in assessment. CT head reviewed by me and shows no obvious intracranial hemorrhage on my interpretation. Further evaluation of the patient reveals that he does have some right hip pain as noted in exam and we will get pelvis and right hip x-ray. We will apply LET to the wound at the head and then anticipate stapling that. Monitor patient. Differential diagnosis includes intracranial hemorrhage, right hip fracture, contusion, laceration 1910: CT head as noted above. X-ray of right hip and pelvis reviewed by me and shows no obvious fracture on my interpretation. Radiology report reviewed and constipation noted and family and intermediate will be notified of this. He does not appear to be in distress related to constipation and so this can be cared for at the intermediate. Wound closed as noted in procedure note. Discharged home with return precautions. verbalized understanding instructions and agreement with plan. Diagnostic Imaging Diagonstic Imaging: CT Plain Films/CT/US/NM/MRI: head [facility] [place] [place] NAME: CHARLES JEREZ [facility] REC#: [id number] PT STATUS: REG ER : 1945 PHYSICIAN: CHRIS HATHAWAY MD ADMIT DATE: 08/11/23/ER Draft Date of Exam:08/11/23 CT HEAD WO CLINICAL INDICATION: Patient is status post fall with laceration to back of head. Patient is on Coumadin. EXAM: Axial CT scan of the brain performed without IV contrast with sagittal and coronal reformatted images. Auto Exposure Controls were utilized during the CT exam to meet ALARA standards for radiation dose reduction. COMPARISON: CT scan of the head and cervical spine without contrast dated 06/11/2023. FINDINGS: There is no evidence of acute cerebral infarct, intracranial hemorrhage, or gross mass effect. Again seen are diffuse brain parenchymal volume loss, chronic small vessel ischemic disease, and leukoaraiosis. There is normal lyles-white matter distinction. There is no significant midline shift or herniation. There is no evidence of hydrocephalus. The basal cisterns are unremarkable. There is a small area of extracranial soft tissue swelling and laceration involving the anterior right of midline top of the head region. There is no skull fracture. Skull, extracranial soft tissue, and orbits are unremarkable. There is a small mucus retention cyst involving the sphenoid sinus. The temporal bones show no significant abnormality. IMPRESSION: There is no interval evidence of an acute intracranial process. There is no skull fracture. Dictated on workstation # [id number] Dict: 08/11/231813 Trans: 08/11/231819 [id number] Interpreted by: ESTELA FLANAGAN MD Electronically signed by: Diagonstic Imaging: Xray Plain Films/CT/US/NM/MRI: pelvis, hip Comments [facility] [place] [place] NAME: CHARLES JEREZ [facility] REC#: [id number] PT STATUS: REG ER : 1945 PHYSICIAN: AMY CASTILLO MD ADMIT DATE: 08/11/23/ER Draft Date of Exam:08/11/23 PELVIS WITH RIGHT HIP 2-3VIEWS CLINICAL INDICTION: Patient with pelvic and right hip pain. EXAM: X-ray pelvis, AP view. X-ray right hip, AP and frog-leg views. COMPARISON: X-ray pelvis and left hip dated 03/30/2022. FINDINGS: X-ray of the pelvis and right hip shows no acute fracture or dislocation. Again seen is enthesopathy involving the greater trochanter bilaterally with the right side more than the left. There is mild enthesopathy involving the ischium. Vascular calcifications are seen. A large amount of stool in the rectum is again noted. There are lower lumbar spine degenerative spurs. IMPRESSION: 1: Stable appearance of the pelvis and right hip with no acute fracture or dislocation. 2: There are large amounts of stool in the rectum which may be seen with constipation. Dictated on workstation # [id number] Dict: 08/11/231853 Trans: 08/11/231858 [id number] Interpreted by: ESTELA FLANAGAN MD Electronically signed by: Departure Impression Primary Impression: Scalp laceration Qualified Codes: S01.01XA - Laceration without foreign body of scalp, initial encounter Additional Impressions: Contusion of right hip Qualified Codes: S70.01XA - Contusion of right hip, initial encounter Constipation Qualified Codes: K59.00 - Constipation, unspecified Disposition: 01 HOME, SELF-CARE Condition: Stable Departure-Patient Inst. Decision time for Depature: 19:09 Referrals: ROXIE KIM DO (PCP/Family) Primary Care Physician Patient Instructions: Laceration Repair With Jermaine ED, Contusion (DC), Constipation, Adult ED Add. Discharge Instructions: All discharge instructions reviewed with patient and/or family. Voiced understanding. Continue home medications as previously prescribed. X-ray does show some concerns for constipation and you can initiate constipation protocol per facility and his medical orders. [place] out in 7 days. Use antibiotic ointment over wound and clean daily and reapply. You may wash his hair gently but do not scrub vigorously as this will likely cause return of bleeding over t he wound. Return for worse pain, fever, vomiting, weakness, breathing problems or other concerns as needed. Copy Copies To 1: ROXIE KIM TIMOTHY D MD Aug 11, 2023 18:35
[2023-08-11] MEDS ORDERED: L.E.T. GEL 3 ML SYRINGE ONE (18:37)
[2023-08-11] MEDS: L.E.T. SOLUTION 3 ML SYR TOP ONE (18:41)
--- NOTE | 2023-08-11 18:59 | Diagnostic Imaging Report ---
CLINICAL INDICTION: Patient with pelvic and right hip pain. EXAM: X-ray pelvis, AP view. X-ray right hip, AP and frog-leg views. COMPARISON: X-ray pelvis and left hip dated 03/30/2022. FINDINGS: X-ray of the pelvis and right hip shows no acute fracture or dislocation. Again seen is enthesopathy involving the greater trochanter bilaterally with the right side more than the left. There is mild enthesopathy involving the ischium. Vascular calcifications are seen. A large amount of stool in the rectum is again noted. There are lower lumbar spine degenerative spurs. IMPRESSION: 1: Stable appearance of the pelvis and right hip with no acute fracture or dislocation. 2: There are large amounts of stool in the rectum which may be seen with constipation. Dictated by: Dictated on workstation # [id number]
[2023-08-11 19:25] VITALS: BP 128/62
== END 2023-08-11 19:25 | disposition home or self-care (01) ==
LOC: ER 17:31 → EDUNIT# 17:31 → ER 19:25
DX: S01.01XA Laceration without foreign body of scalp, initial encounter (principal); S70.01XA Contusion of right hip, initial encounter; K59.00 Constipation, unspecified; I48.91 Unspecified atrial fibrillation; Z79.01 Long term (current) use of anticoagulants; W19.XXXA Unspecified fall, initial encounter
CPT/HCPCS: 70450

== ENCOUNTER 2023-08-26 09:10 | Emergency (ER) | payer MEDICARE, MEDICAID ==
[~2023-08-26] VITALS: Ht 175 cm; Wt 75.0 kg
--- NOTE | 2023-08-26 09:40 | ED Lower Extremity ---
General Chief Complaint: Trauma-Non Activation Stated Complaint: FALL/L HIP DEFORMITY Nursing Triage Note: PT TO RM 7 BY [facility] WITH CC OF A FALL THIS MORNING WHILE ON THE TOILET, AND THEN "THREW HIMSELF OUT OF BED," CC OF LT HIP DEFORMITY History of Present Illness Date Seen by Provider: Aug 26, 2023 Time Seen by Provider: 09:15 Initial Comments 78-year-old male brought in by EMS following a fall. Patient is a [facility] patient who falls frequently and also throws himself out of bed frequently. Patient had a fall this morning and is complaining of left hip pain and deformity. He has multiple bruising from previous falls that have been evaluated including his right hip and chest wall. Patient does not communicate with much more than basically grunts and does not provide any information. Allergies and Home Medications Allergies Coded Allergies: Penicillins (Unverified Allergy, Mild, 04/06/22) penicillin G (Verified Allergy, Unknown, 04/06/22) Patient Home Medication List Home Medication List Reviewed: Yes Acetaminophen (Acetaminophen) 500 Mg Tablet, 500 MG PO TID, (Reported) Entered as Reported by: FRANKY HO on 04/08/22 1603 Lorazepam (Ativan) 0.5 Mg Tablet, 0.5 MG PO BID PRN for ANXIETY, (Reported) Entered as Reported by: RAHUL DONOVAN on 04/09/22 0817 Sennosides (Senna Laxative) 8.6 Mg Tablet, 8.6 MG PO BID, (Reported) Entered as Reported by: FRANKY HO on 04/08/22 1603 Warfarin Sodium (Warfarin Sodium) 2.5 Mg Tablet, 2.5 MG PO 1600 Prescribed by: ROXIE KIM on 04/09/22 1259 Review of Systems ROS-Unable to Obtain: Patient does not communicate, EMS provided review of systems Constitutional: see HPI Respiratory: no symptoms reported Cardiovascular: no symptoms reported Gastrointestinal: no symptoms reported Musculoskeletal: see HPI Skin: see HPI Past Yzgnitj-Vbekpw-Womnsq Hx Immunizations Up To Date First/Initial COVID19 Vaccinat: june COVID19 Vaccination Cristóbal: july COVID19 Vaccination Date: june Past Medical History Surgery/Hospitalization HX: ARTIFICIAL AORTIC VALVE DEVICE PLACED, DEMENTIA, DEPRESSION, EXTREME ANXIETY, A FIB Surgeries: Yes Cardiac, Testicular, Valve Replacement Respiratory: No Cardiac: Yes (MECHANICAL AORTIC VALVE) Atrial Fibrillation, Chronic Edema/Swelling, High Cholesterol, Hypertension, Valvular Heart Disease Neurological: Yes Dementia, Parkinson's Disease Reproductive Disorders: No Genitourinary: Yes (BENIGN RIGHT TESTICULAR MASS/S-P ORCHIECTOMY) Benign Prostatic Hyperpl, Prostate Problems Gastrointestinal: No Musculoskeletal: No Endocrine: No HEENT: No Cancer: No Psychosocial: Yes (DEMENTIA) Anxiety, Depression Integumentary: No Blood Disorders: No Family Medical History No Pertinent Family Hx 10/2021--HOSPITALIZED FOR COVID-19 PNEUMONIA/RESPIRATORY FAILURE. WAS PLACED IN RETIREMENT AFTER HE WAS DISMISSED FROM THE HOSPITAL. PAST SURGICAL HISTORY: -AORTIC VALVE REPLACEMENT WITH MECHANICAL VALVE-CHRONIC COUMADIN USE -RIGHT ORCHIECTOMY 07/[address] NICHOLS. Physical Exam Vital Signs Vital Signs - First Documented 08/26/23 09:14 Temp 36.7 Pulse 98 Resp 18 B/P (MAP) 108/74 (85) Pulse Ox 95 O2 Delivery Room Air Capillary Refill : Less Than 3 Seconds Height, Weight, BMI Height: '" Weight: 228lbs. oz. 103.587685hk; 24.00 BMI Method: General Appearance: no apparent distress Neck: full range of motion, supple Cardiovascular: normal peripheral pulses Respiratory: lungs clear, normal breath sounds Hips: left hip bone tenderness; right hip ecchymosis; left hip pain; bilateral hip soft tissue tenderness; right hip swelling Knees: bilateral knee non-tender Ankles: bilateral ankle non-tender Neurologic/Psychiatric: other (Patient at baseline per EMS) Skin: ecchymosis (Right hip and left chest wall) Progress/Results/Core Measures Results/Orders My Orders Orders - KYUNG THOMPSON DO Pelvis/Ruthy Hips 5> Views (08/26/23 09:19) Vital Signs/I&O 08/26/23 08/26/23 09:14 10:49 Temp 36.7 36.7 Pulse 98 98 Resp 18 18 B/P (MAP) 108/74 (85) 124/74 Pulse Ox 95 95 O2 Delivery Room Air Room Air Blood Pressure Mean: 85 Progress Progress Note : Progress Note Patient was able to move his hips with no difficulty. He does have some mild tenderness to palpation but no obvious deformity noted by me. Patient x-ray was obtained and reviewed with initial interpretation negative by me without interpretation per radiology report. Patient with likely hip contusion due to his frequent falls. Patient was stable and [facility] to the [facility] Diagnostic Imaging Diagonstic Imaging: Xray Plain Films/CT/US/NM/MRI: hip Comments Date of Exam:08/26/23 PELVIS/RUTHY HIPS 5> VIEWS INDICATION: Pelvic pain. TECHNIQUE: An AP view of the pelvis and two views of each hip were obtained. FINDINGS: There are mild degenerative changes of the left hip with osteophytes forming along the articular margins. There is no fracture or dislocation in either hip. Pelvic and obturator rings appear to be intact. IMPRESSION: Mild degenerative changes of the left hip. Reviewed: Reviewed by Me, Reviewed/Discussed Departure Impression Primary Impression: Fall on same level Qualified Codes: W18.30XA - Fall on same level, unspecified, initial encounter Additional Impression: Contusion of left hip, initial encounter Disposition: 01 HOME, SELF-CARE Condition: Stable Departure-Patient Inst. Referrals: ROXIE KIM DO (PCP/Family) Primary Care Physician Patient Instructions: Minor Contusion ED, Taking care of bruises Add. Discharge Instructions: Tylenol or ibuprofen as needed for discomfort. Follow-up with primary care provider as needed All discharge instructions reviewed with patient and/or family. Voiced understanding. KYUNG THOMPSON DO Aug 26, 2023 09:40
--- NOTE | 2023-08-26 09:58 | Diagnostic Imaging Report ---
INDICATION: Pelvic pain. TECHNIQUE: An AP view of the pelvis and two views of each hip were obtained. FINDINGS: There are mild degenerative changes of the left hip with osteophytes forming along the articular margins. There is no fracture or dislocation in either hip. Pelvic and obturator rings appear to be intact. IMPRESSION: Mild degenerative changes of the left hip. Dictated by: Dictated on workstation # [id number]
[2023-08-26 10:49] VITALS: BP 124/74
== END 2023-08-26 10:49 | disposition home or self-care (01) ==
LOC: EDUNIT# 09:10 → ER 09:15
DX: S70.02XA Contusion of left hip, initial encounter (principal); S20.212A Contusion of left front wall of thorax, initial encounter; W18.30XA Fall on same level, unspecified, initial encounter; Y92.002 Bathroom of unspecified non-institutional (private) residence as the place of occurrence of the external cause
CPT/HCPCS: 73523

== ENCOUNTER 2023-09-03 15:01 | Observation (INO) | payer MEDICARE, MEDICAID ==
[~2023-09-03] VITALS: Ht 176 cm; Wt 75.0 kg
[2023-09-03] MEDS ORDERED: NS IV 500 ML 500 ML IV STA (15:30)
[2023-09-03 15:48] LABS: POTASSIUM 5.1 MMOL/L (3.6-5.0)
[2023-09-03 15:49] LABS: BASOPHILS # (AUTO) 0.1 10^3/uL (0.0-0.1); BASOPHILS % (AUTO) 0 % (0-10); CALCIUM 8.2 MG/DL (8.5-10.1); EOSINOPHILS % (AUTO) 0 % (0-10); LYMPHOCYTES # (AUTO) 5.5 10^3/uL (1.0-4.0); LYMPHOCYTES % (AUTO) 16 % (12-44); MEAN CORPUSCULAR HEMOGLOBIN 38 pg (25-34); MEAN CORPUSCULAR HGB CONC 27 g/dL (32-36); MEAN CORPUSCULAR VOLUME 141 fL (80-99); MEAN PLATELET VOLUME 10.7 fL (9.0-12.2); MONOCYTES # (AUTO) 2.6 10^3/uL (0.0-1.0); MONOCYTES % (AUTO) 7 % (0-12); NEUTROPHILS # (AUTO) 25.1 10^3/uL (1.8-7.8); NEUTROPHILS % (AUTO) 71 % (42-75); PLATELET COUNT 525 10^3/uL (130-400)
[2023-09-03 15:50] LABS: TOTAL PROTEIN 5.6 GM/DL (6.4-8.2)
[2023-09-03 15:51] LABS: WHITE BLOOD COUNT 35.4 10^3/uL (4.3-11.0)
[2023-09-03 15:52] LABS: BILIRUBIN,TOTAL 2.8 MG/DL (0.1-1.0)
[2023-09-03 15:54] LABS: CREATININE SERUM 3.43 MG/DL (0.60-1.30)
[2023-09-03 15:58] LABS: HEMATOCRIT 18 % (40-54); HEMOGLOBIN 4.7 g/dL (13.3-17.7)
[2023-09-03 16:08] LABS: PARTIAL THROMBOPLASTIN TIME 156 SEC (24-35); PROTHROMBIN TIME PATIENT > 120.0 SEC (12.2-14.7)
[2023-09-03] MEDS ORDERED: morphine INJ 10 MG/ML 1ML (SYR OR VIAL) IVP STA (16:40)
[2023-09-03 16:44] LABS: ATYPICAL LYMPHOCYTES 1 %; BAND NEUTROPHILS 2 %; BLAST CELLS 1 %; LYMPHOCYTES % (MANUAL) 13 %; METAMYELOCYTES % 1 %; MONOCYTES % (MANUAL) 10 %; MYELOCYTES % 1 %; NEUTROPHILS % (MANUAL) 71 %
[2023-09-03 16:45] LABS: BURR CELLS SLIGHT; HYPOCHROMASIA SLIGHT; PLATELET ESTIMATE INCREASED; POLYCHROMASIA MARKED; TEAR DROP CELLS SLIGHT
--- NOTE | 2023-09-03 16:48 | ED General ---
General Chief Complaint: General Problems/Pain Stated Complaint: LETHARGIC Nursing Triage Note: PT TO [facility] WITH CC OF LETHARGIC AND NOT VOCAL NORMAL, PT DOES NOT TALK WELL BUT DOES MAKE NOISES Source of Information: Patient, Other (group home) Exam Limitations: No Limitations History of Present Illness Date Seen by Provider: Sep 03, 2023 Time Seen by Provider: 15:05 Initial Comments Patient is a 78-year-old male who presents from [facility] with concern for "suddenly turning pale" and not acting like himself. The patient has a history of chronic anticoagulation with mechanical aortic valve on Coumadin, Alzheimer's dementia. Reportedly he had a fall about a week ago onto his left hip. He was seen in the emergency department and had x-rays which were interpreted as negative. He was sent back to the group home. The audio visual directorSara stated that since arriving back to the facility he had not been ambulatory. She advised me that he is normally ambulatory without assistance, very interactive but nonverbal. She states he has been complaining of a significant amount of pain and that she had tried multiple times to get pain medications for him. Today when the med techs were taking his blood pressure they noticed that he "suddenly went pale". He arrives to the emergency department tachypneic, tachycardic in the 120s with low blood pressure at 90 systolic. He is nonverbal, eyes are open he is not tracking. He is ghost pale. Timing/Duration: Other (unknown) Severity: Severe Allergies and Home Medications Allergies Coded Allergies: Penicillins (Unverified Allergy, Mild, 04/06/22) penicillin G (Verified Allergy, Unknown, 04/06/22) Patient Home Medication List Home Medication List Reviewed: Yes Acetaminophen (Acetaminophen) 500 Mg Tablet, 500 MG PO TID, (Reported) Entered as Reported by: FRANKY HO on 04/08/22 1603 Lorazepam (Ativan) 0.5 Mg Tablet, 0.5 MG PO BID PRN for ANXIETY, (Reported) Entered as Reported by: RAHUL DONOVAN on 04/09/22 0817 Sennosides (Senna Laxative) 8.6 Mg Tablet, 8.6 MG PO BID, (Reported) Entered as Reported by: FRANKY HO on 04/08/22 1603 Warfarin Sodium (Warfarin Sodium) 2.5 Mg Tablet, 2.5 MG PO 1600 Prescribed by: ROXIE LOPEZ on 04/09/22 0314 Review of Systems Review of Systems Constitutional: see HPI unable to obtain from patient due to Alzheimer's Dementia Past Lzczfzp-Uwojbi-Wottbr Hx Immunizations Up To Date First/Initial COVID19 Vaccinat: june COVID19 Vaccination Cristóbal: july COVID19 Vaccination Date: june Past Medical History Surgery/Hospitalization HX: ARTIFICIAL AORTIC VALVE DEVICE PLACED, DEMENTIA, DEPRESSION, EXTREME ANXIETY, A FIB Surgeries: Yes Cardiac, Testicular, Valve Replacement Respiratory: No Cardiac: Yes (MECHANICAL AORTIC VALVE) Atrial Fibrillation, Chronic Edema/Swelling, High Cholesterol, Hypertension, Valvular Heart Disease Neurological: Yes Dementia, Parkinson's Disease Reproductive Disorders: No Genitourinary: Yes (BENIGN RIGHT TESTICULAR MASS/S-P ORCHIECTOMY) Benign Prostatic Hyperpl, Prostate Problems Gastrointestinal: No Musculoskeletal: No Endocrine: No HEENT: No Cancer: No Psychosocial: Yes (DEMENTIA) Anxiety, Depression Integumentary: No Blood Disorders: No Family Medical History No Pertinent Family Hx 10/2021--HOSPITALIZED FOR COVID-19 PNEUMONIA/RESPIRATORY FAILURE. WAS PLACED IN [facility] AFTER HE WAS DISMISSED FROM THE HOSPITAL. PAST SURGICAL HISTORY: -AORTIC VALVE REPLACEMENT WITH MECHANICAL VALVE-CHRONIC COUMADIN USE -RIGHT ORCHIECTOMY 07/[address] NICHOLS. Physical Exam Vital Signs Vital Signs - First Documented 09/03/23 15:07 Temp 36.0 Pulse 124 Resp 36 B/P (MAP) 98/56 (70) Pulse Ox 90 O2 Delivery Nasal Cannula O2 Flow Rate 2.00 Capillary Refill : Less Than 3 Seconds Height, Weight, BMI Height: '" Weight: 228lbs. oz. 103.614177bc; 24.00 BMI Method: General Appearance: Chronically ill, Severe Distress, Other (Ghost pale) Eyes: Bilateral Eye Conjunctivae Pale HEENT: PERRL/EOMI, Pale Conjunctivae (L), Pale Conjunctivae (R) Neck: Normal Inspection Respiratory: Other (tachypnea) Cardiovascular: Normal Peripheral Pulses (1+ radial bilaterally), Tachycardia Gastrointestinal: Abnormal Bowel Sounds (hypoactive); No Distended Rectal: Other (large amount of stool in rectal vault - firm; no gross blood; soft and brown. hemmoccult positive) Back: Normal Inspection Extremity: Normal Range of Motion Neurologic/Psychiatric: Other (eyes open; does not follow commands; ) Skin: Pallor (significant pallor; ecchymoses to bilateral upper extremities; right hip) Progress/Results/Core Measures Suspected Sepsis SIRS Temperature: Pulse: 124 Respiratory Rate: 36 Laboratory Tests 09/03/23 15:19: White Blood Count 35.4*H Blood Pressure 98 /56 Mean: 70 Laboratory Tests 09/03/23 15:19: Creatinine 3.43H, INR Comment , Platelet Count 525H, Total Bilirubin 2.8H Results/Orders Lab Results Laboratory Tests Test 09/03/23 15:19 Range/Units White Blood Count 35.4 *H 4.3-11.0 10^3/uL Red Blood Count 1.24 L 4.30-5.52 10^6/uL Hemoglobin 4.7 *L 13.3-17.7 g/dL Hematocrit 18 *L 40-54 % Mean Corpuscular Volume 141 H 80-99 fL Mean Corpuscular Hemoglobin 38 H 25-34 pg Mean Corpuscular Hemoglobin Concent 27 L 32-36 g/dL Red Cell Distribution Width 26.7 H 10.0-14.5 % Platelet Count 525 H 130-400 10^3/uL Mean Platelet Volume 10.7 9.0-12.2 fL Immature Granulocyte % (Auto) 6 % Neutrophils (%) (Auto) 71 42-75 % Lymphocytes (%) (Auto) 16 12-44 % Monocytes (%) (Auto) 7 0-12 % Eosinophils (%) (Auto) 0 0-10 % Basophils (%) (Auto) 0 0-10 % Neutrophils # (Auto) 25.1 H 1.8-7.8 10^3/uL Lymphocytes # (Auto) 5.5 H 1.0-4.0 10^3/uL Monocytes # (Auto) 2.6 H 0.0-1.0 10^3/uL Eosinophils # (Auto) 0.0 0.0-0.3 10^3/uL Basophils # (Auto) 0.1 0.0-0.1 10^3/uL Immature Granulocyte # (Auto) 2.1 H 0.0-0.1 10^3/uL Prothrombin Time > 120.0 *H 12.2-14.7 SEC INR Comment 0.8-1.4 Activated Partial Thromboplast Time 156 *H 24-35 SEC Sodium Level 155 H 135-145 MMOL/L Potassium Level 5.1 H 3.6-5.0 MMOL/L Chloride Level 121 H 98-107 MMOL/L Carbon Dioxide Level 7 *L 21-32 MMOL/L Anion Gap 27 H 5-14 MMOL/L Blood Urea Nitrogen 66 H 7-18 MG/DL Creatinine 3.43 H 0.60-1.30 MG/DL Estimat Glomerular Filtration Rate 18 BUN/Creatinine Ratio 19 Glucose Level 249 H 70-105 MG/DL Calcium Level 8.2 L 8.5-10.1 MG/DL Corrected Calcium 9.0 8.5-10.1 MG/DL Total Bilirubin 2.8 H 0.1-1.0 MG/DL Aspartate Amino Transf (AST/SGOT) 36 H 5-34 U/L Alanine Aminotransferase (ALT/SGPT) 17 0-55 U/L Alkaline Phosphatase 71 40-136 U/L Total Protein 5.6 L 6.4-8.2 GM/DL Albumin 3.0 L 3.2-4.5 GM/DL My Orders Orders - CHRIS HATHAWAY MD Ed Iv/Invasive Line Start (09/03/23 15:27) Type And Screen (09/03/23 15:27) Comprehensive Metabolic Panel (09/03/23 15:27) Protime With Inr (09/03/23 15:27) Partial Thromboplastin Time (09/03/23 15:27) Ns Iv 500 Ml (Ns Iv 500 Ml) (09/03/23 15:30) Code/Resuscitation (09/03/23 16:36) Morphine Injection (Morphine Injection (09/03/23 16:40) Ed Admission (Communication) (09/03/23 16:42) Vital Signs/I&O 09/03/23 15:07 Temp 36.0 Pulse 124 Resp 36 B/P (MAP) 98/56 (70) Pulse Ox 90 O2 Delivery Nasal Cannula O2 Flow Rate 2.00 Capillary Refill : Less Than 3 Seconds Blood Pressure Mean: 70 Point of Care Testing Fecal Occult: Positive Progress Note : Time: 16:49 Progress Note Patient seen and evaluated by me. Evaluation today includes an history from group home as well as the patient's primary care provider, Dr. LOPEZ and physical exam, CBC, CMP, Coags. Pertinent physical exam findings include significant profound pallor, very dry oral mucosa, tachycardia, diminished lung sounds, soft abdomen that is nondistended with hypoactive bowel sounds significant ecchymosis to the upper extremities and right flank. Tachycardia, hypotension, unable to get oxygen saturations due to the temperature of his fingers. Differential diagnosis includes profound anemia, renal failure, dehydration, end-of-life Patient's labs independently reviewed and interpreted by me. CBC use shows a total white blood cell count of 35.4, hemoglobin 4.7 hematocrit 18 platelet count of 525. His red blood cells are 1.24. Chem-12 panel shows a sodium of 155, potassium of 5.1 chloride of 121, CO2 of 7, BUN of 66, creatinine of 3.43 and serum glucose of 249. Other pertinent findings on Chem-12 bilirubin of 2.8. His coag panel shows a PT of greater than 120, PTT of 156, INR is incalculable. Patient was given 500 cc of normal saline on arrival. I discussed the case with Dr. Pardo (hospitalist) who recommended trying to get a hold of Dr. LOPEZ, the patient's primary care physician. I spoke with Dr. Lopez and she was completely supportive of comfort care measures. She is familiar with the patient's and stated that she thought she would be amenable to this. I then spoke with the patient's as well as daughter and son. They are agreeable to comfort care at this time. Will not pursue aggressive fluid and blood resuscitation. Case was discussed with Dr. Pardo again, she will do que'd orders. Departure Communication (Admissions) Time/Spoke to Admitting Phy: 16:[address] Pardo (hospitalist) Family Conversation 1620 - discussed with family - , son and daughter; agreeable to comfort care measures Impression Primary Impression: Multisystem organ failure Additional Impression: End of life care Disposition: ADMITTED INPATIENT Condition: Unchanged Admissions Decision to Admit Reason: Admit from ER (General) Decision to Admit/Date: Sep 03, 2023 Time/Decision to Admit Time: 16:55 Departure-Patient Inst. Referrals: ROXIE LOPEZ DO (PCP/Family) Primary Care Physician Copy Copies To 1: ROXIE LOPEZ KATHRYN M MD Sep 03, 2023 16:48
[2023-09-03 17:22] VITALS: BP 94/54
--- NOTE | 2023-09-03 18:45 | Short Stay Summary ---
History of Present Illness History of Present Illness Reason for visit/HPI CC: Multisystem organ failure HPI: This is a [address] Lopez who presented to the ER with AMS and found to have multi-system organ failure. Comfort care orders placed and he upon arrival to floor. Date of Admission Sep 03, 2023 at 17:16 Date of Discharge 09/03/23 Time Seen by Provider: 00:00 Attending Physician Roxie Lopez DO Admitting Physician Admitting Physician: Abril Rivero DO Attending Physician: Abril Rivero DO Consult Allergies and Home Medications Allergies Coded Allergies: Penicillins (Unverified Allergy, Mild, 04/06/22) penicillin G (Verified Allergy, Unknown, 04/06/22) Patient Home Medication List Home Medication List Reviewed: Yes Acetaminophen (Acetaminophen) 500 Mg Tablet, 500 MG PO TID, (Reported) Entered as Reported by: FRANKY HO on 04/08/22 1603 Lorazepam (Ativan) 0.5 Mg Tablet, 0.5 MG PO BID PRN for ANXIETY, (Reported) Entered as Reported by: RAHUL DONOVAN on 04/09/22 0817 Sennosides (Senna Laxative) 8.6 Mg Tablet, 8.6 MG PO BID, (Reported) Entered as Reported by: FRANKY HO on 04/08/22 1603 Warfarin Sodium (Warfarin Sodium) 2.5 Mg Tablet, 2.5 MG PO 1600 Prescribed by: ROXIE LOPEZ on 04/09/22 1259 Past Wjlqlgg-Rbrsqh-Habwce Hx Patient Social History Marrital Status: Employed/Student: retired Smoking Status: Unknown if Ever Smoked Immunizations Up To Date Date of Pneumonia Vaccine: Aug 02, 2013 Date of Influenza Vaccine: Aug 02, 2013 Surgeries Yes Cardiac, Testicular, Valve Replacement Respiratory No Cardiovascular Yes (MECHANICAL AORTIC VALVE) Atrial Fibrillation, Chronic Edema/Swelling, High Cholesterol, Hypertension, Valvular Heart Disease Neurological Yes Dementia, Parkinson's Disease Reproductive System Hx Reproductive Disorders: No Genitourinary Yes (BENIGN RIGHT TESTICULAR MASS/S-P ORCHIECTOMY) Benign Prostatic Hyperpl, Prostate Problems Gastrointestinal No Musculoskeletal No Endocrine History of Endocrine Disorders: No HEENT History of HEENT Disorders: No Cancer No Psychosocial History of Psychiatric Problem: Yes (DEMENTIA) Behavioral Health Disorders: Anxiety, Depression Integumentary History of Skin or Integumenta: No Blood Transfusions History of Blood Disorders: No Family Medical History Significant Family History: No Pertinent Family Hx Other Significan Family Hx: 10/2021--HOSPITALIZED FOR COVID-19 PNEUMONIA/RESPIRATORY FAILURE. WAS PLACED IN LONG TERM AFTER HE WAS DISMISSED FROM THE HOSPITAL. PAST SURGICAL HISTORY: -AORTIC VALVE REPLACEMENT WITH MECHANICAL VALVE-CHRONIC COUMADIN USE -RIGHT ORCHIECTOMY 07/[address] NICHOLS. Review of Systems Constitutional: see HPI Physical Exam Vital Signs Vital Signs - First Documented 09/03/23 15:07 Temp 36.0 Pulse 124 Resp 36 B/P (MAP) 98/56 (70) Pulse Ox 90 O2 Delivery Nasal Cannula O2 Flow Rate 2.00 Capillary Refill : Less Than 3 Seconds Height, Weight, BMI Height: '" Weight: 228lbs. oz. 103.582976gr; 24.00 BMI Method: General Appearance: Other () Short Stay Diagnosis Discharge Diagnosis-Short Stay Admission Diagnosis: Multi-system organ failure Final Discharge Diagnosis: Multi-system organ failure Conclusion Labs Laboratory Tests 09/03/23 15:19: White Blood Count 35.4*H, Red Blood Count 1.24L, Hemoglobin 4.7*L, Hematocrit 18*L, Mean Corpuscular Volume 141H, Mean Corpuscular Hemoglobin 38H, Mean Corpuscular Hemoglobin Concent 27L, Red Cell Distribution Width 26.7H, Platelet Count 525H, Mean Platelet Volume 10.7, Immature Granulocyte % (Auto) 6, Neutrop hils (%) (Auto) 71, Lymphocytes (%) (Auto) 16, Monocytes (%) (Auto) 7, Eosinophils (%) (Auto) 0, Basophils (%) (Auto) 0, Neutrophils # (Auto) 25.1H, Lymphocytes # (Auto) 5.5H, Monocytes # (Auto) 2.6H, Eosinophils # (Auto) 0.0, Basophils # (Auto) 0.1, Immature Granulocyte # (Auto) 2.1H, Neutrophils % (Manual) 71, Lymphocytes % (Manual) 13, Monocytes % (Manual) 10, Metamyelocytes % 1, Myelocytes % 1, Band Neutrophils 2, Atypical Lymphocytes 1, Reactive Lymphocytes , Blast Cells 1, Platelet Estimate INCREASED, Polychromasia MARKED, Hypochromasia SLIGHT, Macrocytosis MARKED, Tear Drop Cells SLIGHT, [place] Cells SLIGHT, Prothrombin Time > 120.0*H, INR Comment , Activated Partial Thromboplast Time 156*H, Sodium Level 155H, Potassium Level 5.1H, Chloride Level 121H, Carbon Dioxide Level 7*L, Anion Gap 27H, Blood Urea Nitrogen 66H, Creatinine 3.43H, Estimat Glomerular Filtration Rate 18, BUN/Creatinine Ratio 19, Glucose Level 249H, Calcium Level 8.2L, Corrected Calcium 9.0, Total Bilirubin 2.8H, Aspartate Amino Transf (AST/SGOT) 36H, Alanine Aminotransferase (ALT/SGPT) 17, Alkaline Phosphatase 71, Total Protein 5.6L, Albumin 3.0L Conclusion/Plan ABRIL RIVERO DO Sep 03, 2023 18:45
[2023-09-03] MEDS ORDERED: ATROPINE 1% OPHTHALMIC SOLN 2 ML SL PRN (21:45)
[2023-09-03] MEDS ORDERED: GLYCOPYRROLATE INJ 0.2 MG/ML 2 ML VIAL IV PRN (21:45)
[2023-09-03] MEDS ORDERED: morphine INJ 4 MG/ML 1 ML (VIAL/SYRINGE) IV PRN (21:45)
[2023-09-03] MEDS ORDERED: ONDANSETRON INJECTION 4 MG/2 ML (SDV) IVP PRN (21:45)
[2023-09-03] MEDS ORDERED: ACETAMINOPHEN 650 MG SUPPOSITORY PR PRN (21:45)
[2023-09-03] MEDS ORDERED: RT-Ipratropium/Albuterol NEB 3 ML VIAL INH PRN (21:45)
[2023-09-03] MEDS ORDERED: LORazepam ORAL CONCENTRATE 2 MG/ML 30 ML PO PRN (21:45)
[2023-09-03] MEDS ORDERED: SALIVA SUBSTITUTE 60 ML SPRAY MM PRN (21:45)
[2023-09-03] MEDS ORDERED: ARTIFICIAL TEARS Ophth solution 0.4 ML UNIT DOSE OU PRN (21:45)
[2023-09-03] MEDS ORDERED: PROMETHAZINE INJ 25 MG/ML VIAL IVP PRN (21:45)
[2023-09-03] MEDS ORDERED: BISACODYL 10 MG SUPPOSITORY PR PRN (21:45)
[2023-09-03] MEDS ORDERED: LORazepam 1 MG TABLET SL PRN (21:45)
[2023-09-03] MEDS ORDERED: SCOPOLAMINE 1.5 MG PATCH TOP SCH (21:45)
== END 2023-09-03 19:50 | disposition expired ==
LOC: EDUNIT# 15:01 → ER 15:02 → 4TH 17:16
PROVIDERS: ADMIT Internal Medicine; ATTEND Internal Medicine
DX: R65.11 Systemic inflammatory response syndrome (SIRS) of non-infectious origin with acute organ dysfunction (principal); R23.1 Pallor; Z79.899 Other long term (current) drug therapy; Z79.01 Long term (current) use of anticoagulants; Z95.2 Presence of prosthetic heart valve
CPT/HCPCS: 80053; 82274; 85007; 85027; 85610; 85730; 86850; 86900; 86901; 96361; 96374; 99284; G0378; 36415